=== PATIENT | female | born 1955 | race Caucasian/White ===

== ENCOUNTER 2022-09-03 11:24 | Emergency (ER) | payer MEDICARE, SELFPAY ==
[2022-09-03 11:27] VITALS: BP 146/90; PULSE 92; RESP 18; TEMP 36.8; O2SAT 99; BMI 26.5
--- NOTE | 2022-09-03 11:40 | ED_ITS ---
HPI - General Adult General Chief complaint: Upper Respiratory Infection Stated complaint: COUGH Time Seen by Provider: 09/03/22 11:40 Source: patient Mode of arrival: walk-in Limitations: no limitations History of Present Illness HPI narrative: The patient has been complaining of cough for the last few days she has been evaluated by her primary care doctor which was prescribed two antibiotics but she mentioned that the antibiotic was making her sick and she continued to cough The patient denies any fever or chills any runny t nose or sore throat she also denies any nausea vomiting or any other complaint The patient have no difficulty breathing but she have cough that is not productive Related Data Previous Rx's Medication Instructions Recorded famotidine 20 mg tablet (Pepcid) 20 mg PO BID #10 tabs 09/03/22 Allergies Allergy/AdvReac Type Severity Reaction Status Date / Time levofloxacin Allergy Intermediate Verified 09/03/22 11:34 Review of Systems ROS Status of ROS 10 or more systems reviewed and unremarkable except as noted in history and below Exam Narrative Exam Narrative: Nurses notes and vital signs reviewed and patient is not hypoxic. General: Well-appearing and in no apparent distress. Skin: Warm, dry, no pallor noted. No rash. Head: Normocephalic, atraumatic. Neck: Supple, non-tender. Eye: Pupils are equal, round and EOMI. No scleral icterus. Ears, Nose, Mouth, and Throat: TM are clear, no nasal mucosal hypertrophy. Oral mucosa is moist, no posterior oropharynx erythema, uvula is mid-line Cardiovascular: Regular Rate and Rhythm without murmur, gallop or rub. Respiratory: No accessory muscle use or respiratory distress. Lungs are clear to auscultation, no wheezing, rales or rhonchi Chest Wall: no tenderness Back: No midline thoracic or lumbar vertebral tenderness. No CVA tenderness Musculoskeletal: normal ROM, no calf or popliteal tenderness, no lower extremit y edema/swelling GI: Abdomen is soft, non-distended. Normal bowel sounds. No masses appreciated. No tenderness to palpation. No rebound, guarding, or rigidity noted. Neurological: A&O x4. No cranial nerve dysfunction observed. No truncal ataxia. Moves all extremities. Sensation intact. Psychiatric: Cooperative and interactive. Normal mood and affect. Constitutional Vital Signs, click to edit/add: Last Vital Signs Temp 98.2 F 09/03/22 11:27 Pulse 92 H 09/03/22 11:27 Resp 18 09/03/22 11:27 BP 146/90 H 09/03/22 11:27 Pulse Ox 90 L 09/03/22 12:52 O2 Del Method Room Air 09/03/22 11:27 O2 Flow Rate 4 09/03/22 12:52 Course Vital Signs Vital signs: Vital Signs Temperature 98.2 F 09/03/22 11:27 Pulse Rate 92 H 09/03/22 11:27 Respiratory Rate 18 09/03/22 11:27 Blood Pressure 146/90 H 09/03/22 11:27 Pulse Oximetry 99 09/03/22 11:27 Oxygen Delivery Method Room Air 09/03/22 11:27 Temperature 98.2 F 09/03/22 11:27 Pulse Rate 92 H 09/03/22 11:27 Respiratory Rate 18 09/03/22 11:27 Blood Pressure 146/90 H 09/03/22 11:27 Pulse Oximetry 90 L 09/03/22 12:52 Oxygen Delivery Method Room Air 09/03/22 11:27 Oxygen Delivery Flow Rate 4 09/03/22 12:52 Medical Decision Making MDM Narrative Medical decision making narrative: The patient's CBC and chemistry showed no significant pathology The x-ray showed no pneumonia And the patient was restarted and Z-Mateo she will continue that twice now and she will continue hydration and [id number] Mucinex The patient also follow-up with her doctor within the week for further evaluation and to come back in case symptoms Lab Data Labs: Lab Results 09/03/22 Range/Units 11:58 WBC 7.0 (4.0-11.0) 10^3/uL RBC 4.73 (4.20-5.40) 10^6/uL Hgb 14.0 (12.0-16.0) g/dL Hct 43.0 (36.0-48.0) % MCV 90.9 (81.0-99.0) fL MCH 29.6 (26.7-34.0) pg MCHC 32.6 (29.9-35.2) g/dL RDW 12.7 (11.0-15.0) % Plt Count 278 (150-450) 10^3/uL MPV 10.6 (9.5-13.5) fL Neut % (Auto) 61.1 (43.0-75.0) % Lymph % (Auto) 26.4 (20.5-60.0) % [place] % (Auto) 10.8 (1.7-12.0) % Eos % (Auto) 1.0 (0.9-7.0) % Baso % (Auto) 0.4 (0.2-2.0) % Neut # (Auto) 4.3 (1.4-6.5) 10^3/uL Lymph # (Auto) 1.8 (1.2-3.8) 10^3/uL [place] # (Auto) 0.8 (0.3-0.8) 10^3/uL Eos # (Auto) 0.1 (0.0-0.7) 10^3/uL Baso # (Auto) 0.0 (0.0-0.1) 10^3/uL Abs Immat Gran (auto) 0.02 (0.00-0.03) 10^3/uL Imm/Tot Granulo (auto) 0.3 (0.0-0.5) % Sodium 140 (136-145) mmol/L Potassium 4.0 (3.5-5.1) mmol/L Chloride 106 (98-107) mmol/L Carbon Dioxide 26.3 (21.0-32.0) mmol/L Anion Gap 11.7 BUN 11.0 (7.0-18.0) mg/dL Creatinine 0.61 (0.55-1.02) mg/dL Est GFR ( Amer) >60 (>=60) Est GFR (Non-Af Amer) >60 (>=60) BUN/Creatinine Ratio 18.0 Glucose 101 (74-106) mg/dL Calcium 8.8 (8.5-10.1) mg/dL Magnesium 1.9 (1.8-2.4) mg/dL Total Bilirubin 0.4 (0.2-1.0) mg/dL AST <5 L (15-37) U/L ALT 17 (14-59) U/L Alkaline Phosphatase 81 (46-116) U/L Total Protein 7.2 (6.4-8.2) g/dL Albumin 4.0 (3.4-5.0) g/dL Globulin 3.2 g/dL Albumin/Globulin Ratio 1.3 Discharge Plan Discharge Chief Complaint: Upper Respiratory Infection Clinical Impression: Bronchitis Patient Disposition: Home, Self-Care Time of Disposition Decision: 13:03 Condition: Good Mode of Transportation: Private Vehicle Prescriptions / Home Meds: New famotidine [Pepcid] 20 mg tablet 20 mg PO BID Qty: 10 0RF Instructions: Acute Cough (ED) Stand Alone Forms: Portal Instructions Referrals: Merrill Kaufman MD [Primary Care Provider] - 1 week Discharge Date/Time: 09/03/22 13:14
--- NOTE | 2022-09-03 11:43 | XR_ITS ---
The [address] [address] Patient Name: MARY JO ROBLES MRN: [id number] date: 1955 Sex: F Assigned Patient Location: ER Current Patient Location: ER Accession/Order Number: [id number] Exam Date: 09/03/2022 12:10 Report Date: 09/03/2022 12:49 At the request of: MENA PAULINO Procedure: XR chest 1V EXAM: XR chest 1V HISTORY: cough COMPARISON: 12/18/2025 TECHNIQUE: AP view of the chest FINDINGS: There is no focal airspace consolidation. The cardiomediastinal silhouette is not enlarged. No evidence of pleural effusion or pneumothorax are identified. No acute osseous abnormality. XR/XR chest 1V IMPRESSION: No acute cardiopulmonary process. Recommend follow up imaging if symptoms worsen or persist. Electronically authenticated by: EDGAR VALLEU Date: 09/03/2022 12:49
[2022-09-03 12:17] LABS: Basophils Percent Auto 0.4 % (0.2-2.0); Eosinophils Absolute Auto 0.1 10^3/uL (0.0-0.7); Immature Granulocytes Abs Auto 0.02 10^3/uL (0.00-0.03); Immature Granulocytes Pct Auto 0.3 % (0.0-0.5); Lymphocytes Absolute Auto 1.8 10^3/uL (1.2-3.8); Lymphocytes Percent Auto 26.4 % (20.5-60.0); Mean Corpuscular HGB Conc 32.6 g/dL (29.9-35.2); Mean Corpuscular Hemoglobin 29.6 pg (26.7-34.0); Mean Corpuscular Volume 90.9 fL (81.0-99.0); Mean Platelet Volume 10.6 fL (9.5-13.5); Monocytes Absolute Auto 0.8 10^3/uL (0.3-0.8); Monocytes Percent Auto 10.8 % (1.7-12.0); Neutrophils Absolute Auto 4.3 10^3/uL (1.4-6.5); Neutrophils Percent Auto 61.1 % (43.0-75.0); Platelet Count 278 10^3/uL (150-450); Red Blood Count 4.73 10^6/uL (4.20-5.40); Red Cell Distribution Width 12.7 % (11.0-15.0)
[2022-09-03 12:34] LABS: Alanine Aminotransferase 17 U/L (14-59); Albumin Globulin Ratio 1.3; Alkaline Phosphatase 81 U/L (46-116); Anion Gap 11.7; Aspartate Amino Transferase <5 U/L (15-37); Bilirubin Total 0.4 mg/dL (0.2-1.0); Calcium 8.8 mg/dL (8.5-10.1); Carbon Dioxide 26.3 mmol/L (21.0-32.0); Chloride 106 mmol/L (98-107); Estimated GFR (African America >60 (>=60); Estimated GFR (Non-African Ame >60 (>=60); Globulin 3.2 g/dL; Glucose 101 mg/dL (74-106); Magnesium 1.9 mg/dL (1.8-2.4); Sodium 140 mmol/L (136-145); Total Protein 7.2 g/dL (6.4-8.2)
--- NOTE | 2022-09-03 12:45 | RESP.RT ---
Placed pt on Vapotherm 40L/100% due to ABG results
[2022-09-03 12:52] VITALS: O2SAT 90
--- NOTE | 2022-09-03 12:52 | RESP.RT ---
Placed on Vapotherm 40L/100% due to ABG
== END 2022-09-03 13:14 | disposition home or self-care (01) ==
PROVIDERS: Emergency Provider Emergency Medicine; PCP Family Medicine
DX: J40 Bronchitis, not specified as acute or chronic (principal)
CPT/HCPCS: 36415; 71045; 80053; 83735; 85025; 94799; 99284

== ENCOUNTER 2022-09-19 10:15 | Outpatient (OUT) | payer MEDICARE, SELFPAY ==
[2022-09-19 10:54] LABS: Basophils Percent Auto 0.5 % (0.2-2.0); Eosinophils Absolute Auto 0.1 10^3/uL (0.0-0.7); Eosinophils Percent Auto 1.1 % (0.9-7.0); Hematocrit 41.2 % (36.0-48.0); Hemoglobin 13.2 g/dL (12.0-16.0); Immature Granulocytes Abs Auto 0.02 10^3/uL (0.00-0.03); Immature Granulocytes Pct Auto 0.3 % (0.0-0.5); Lymphocytes Percent Auto 31.6 % (20.5-60.0); Mean Corpuscular Hemoglobin 29.6 pg (26.7-34.0); Mean Corpuscular Volume 92.4 fL (81.0-99.0); Mean Platelet Volume 11.2 fL (9.5-13.5); Monocytes Absolute Auto 0.6 10^3/uL (0.3-0.8); Monocytes Percent Auto 9.5 % (1.7-12.0); Neutrophils Absolute Auto 3.6 10^3/uL (1.4-6.5); Platelet Count 243 10^3/uL (150-450); Red Blood Count 4.46 10^6/uL (4.20-5.40); Red Cell Distribution Width 12.8 % (11.0-15.0); White Blood Count 6.3 10^3/uL (4.0-11.0)
[2022-09-19 11:11] LABS: Estimated Average Glucose 100 mg/dL; Glycohemoglobin A1C 5.1 % (4.5-6.2)
[2022-09-19 12:02] LABS: Alanine Aminotransferase 22 U/L (14-59); Albumin Globulin Ratio 1.2; Albumin Level 3.9 g/dL (3.4-5.0); Alkaline Phosphatase 70 U/L (46-116); Anion Gap 12.5; Aspartate Amino Transferase 15 U/L (15-37); BUN Creatinine Ratio 19.3; Bilirubin Total 0.5 mg/dL (0.2-1.0); Calcium 8.5 mg/dL (8.5-10.1); Carbon Dioxide 28.5 mmol/L (21.0-32.0); Chloride 101 mmol/L (98-107); Chol HDL Ratio 2.3; Cholesterol 190 mg/dL (<=200); Estimated GFR (African America >60 (>=60); Estimated GFR (Non-African Ame >60 (>=60); Free T3 3.07 pg/mL (2.18-3.98); Globulin 3.3 g/dL; Glucose 82 mg/dL (74-106); HDL Cholesterol 81 mg/dL (40-60); Sodium 138 mmol/L (136-145); Total Protein 7.2 g/dL (6.4-8.2); Triglycerides 48 mg/dL (<=150); VLDL CHOLESTEROL 9.6 mg/dL
== END 2022-09-19 10:16 | disposition home or self-care (01) ==
PROVIDERS: PCP Family Medicine; Visit Provider Family Medicine
DX: J20.9 Acute bronchitis, unspecified (principal); E78.5 Hyperlipidemia, unspecified; D64.9 Anemia, unspecified; R73.09 Other abnormal glucose; Z79.899 Other long term (current) drug therapy; R53.83 Other fatigue
CPT/HCPCS: 36415; 80053; 80061; 83036; 83540; 84436; 84443; 84481; 85025

== ENCOUNTER 2022-09-25 13:15 | Outpatient (OUT) | payer MEDICARE, SELFPAY ==
--- NOTE | 2022-09-25 13:18 | MM_ITS ---
Patient: MARY JO ROBLES Exam Date: 09/25/2022 : 1955 Gender:F Ordering : DR Merrill Kaufman . Admission #: [id number] Family : Order #: [id number] CLICK HERE TO VIEW EXAM RADIOLOGY REPORT PROCEDURE: MM TOMOSYNTHESIS SCREENING BI COMPARISON: MG MAMM SCREEN 3D TERA CAD, 06/19/2020. MG MAMM SCREEN 3D TERA CAD, 07/04/2021. INDICATIONS: Screening mammogram Z12.31 Calculator Name NCI Breast Cancer Risk Assessment Tool 5 Year Breast Cancer Risk 1.40% Lifetime Breast Cancer Risk 4.60% Personal Breast Cancer No Personal Ovarian Cancer No Treatments None Family Cancers Mother with colon cancer at age 72. LOCATION: [facility] BREAST COMPOSITION: Almost entirely fatty. FINDINGS: DIAGNOSTIC CATEGORY 1--NEGATIVE. NO CHANGE FROM COMPARISON ASSESSMENT. LEFT BREAST: No significant suspicious finding. RIGHT BREAST: No significant suspicious finding. RECOMMENDATIONS: ROUTINE MAMMOGRAM AND CLINICAL EVALUATION IN 12 MONTHS. PLEASE NOTE: A NORMAL MAMMOGRAM DOES NOT EXCLUDE THE POSSIBILITY OF BREAST CANCER. A CLINICALLY SUSPICIOUS PALPABLE LUMP SHOULD BE BIOPSIED. Dictated by: Willy Means MD on 09/25/2022 at 14:24 Approved by: Willy Means MD on 09/25/2022 at 14:24
== END 2022-09-25 13:16 | disposition home or self-care (01) ==
LOC: MAMMO 13:15
PROVIDERS: PCP Family Medicine; Visit Provider Family Medicine
DX: Z12.31 Encounter for screening mammogram for malignant neoplasm of breast (principal); Z80.0 Family history of malignant neoplasm of digestive organs
CPT/HCPCS: 77063; 77067

== ENCOUNTER 2023-01-28 13:58 | Outpatient (OUT) | payer MEDICARE, SELFPAY ==
--- NOTE | 2023-01-28 14:08 | XR_ITS ---
The [address] [address] Patient Name: MARY JO ROBLES MRN: [id number] date: 1955 Sex: F Assigned Patient Location: LAB Current Patient Location: LAB Accession/Order Number: [id number] Exam Date: 01/28/2023 14:10 Report Date: 01/28/2023 14:38 At the request of: KATELYN YOON Procedure: XR chest 2V EXAMINATION: XR chest 2V HISTORY: Acute Bronchitis J20.9 COMPARISON: 09/03/2022 TECHNIQUE: PA and lateral FINDINGS: LUNGS: No significant pulmonary parenchymal abnormalities. VASCULATURE: No increased pulmonary vasculature. PLEURA: No pneumothorax, effusion, or pleural thickening. CARDIAC: No cardiomegaly or cardiac silhouette abnormality. MEDIASTINUM: No visible mass or adenopathy. BONES: Mild degenerative disc disease and spondylosis without visible acute abnormalities. OTHER: Negative. XR/XR chest 2V IMPRESSION: No acute disease. Electronically authenticated by: EDMOND CAAL Date: 01/28/2023 14:38
== END 2023-01-28 13:59 | disposition home or self-care (01) ==
LOC: LAB 14:00
PROVIDERS: PCP Family Medicine; Visit Provider Family Medicine
DX: J20.9 Acute bronchitis, unspecified (principal)
CPT/HCPCS: 71046

== ENCOUNTER 2023-06-09 12:44 | Outpatient (OUT) | payer MEDICARE, SELFPAY ==
--- NOTE | 2023-06-09 12:47 | XR_ITS ---
[address] [address] Patient Name: MARY JO ROBLES MRN: [id number] date: 1955 Sex: F Assigned Patient Location: [facility] Current Patient Location: [facility] Accession/Order Number: [id number] Exam Date: 06/09/2023 12:58 Report Date: 06/09/2023 17:27 At the request of: KATELYN YOON Procedure: XR DEXA axial skeleton EXAMINATION: XR DEXA axial skeleton, 06/09/2023 12:58 PM EDT HISTORY: Age-related osteoporosis without current Fracture M81.0 COMPARISON: None. TECHNIQUE: Dual-energy X-ray absorptiometry (DEXA) bone density study performed for the axial skeleton. HISTORY: Age-related osteoporosis without current Fracture M81.0 FINDINGS: Bone mineral density AP spine L1-L4 measures 0.831 g/sq cm. T score -2.9. WHO classification: Osteoporosis. Bone mineral density total bilateral femurs is 0.689 g/sq cm. T score -2.5. WHO classification: Osteoporosis XR/XR DEXA axial skeleton IMPRESSION: Osteoporosis. High fracture risk Electronically authenticated by: EDMOND CAAL Date: 06/09/2023 17:27
--- OUTSIDE RECORDS SUMMARY | 2023-06-09 12:53 | XMS_ITS | CCD ---
Author Organization [facility] Care Team Providers Care Cap Maker Name Role Phone ALEJANDRO, DR ALLEY Beasley Consulting Unavailable PAY, DR CORTEZ Admitting Unavailable PAY, DR CORTEZ Attending Unavailable HOY, DR ZEPEDA Primary Care Unavailable PAY, DR CORTEZ Consulting Unavailable NILL, DR KOO Consulting Unavailable NILL, DR KOO Admitting Unavailable NILL, DR KOO Attending Unavailable HOY, DR ZEPEDA Primary Care Unavailable NILL, DR KOO Admitting Unavailable NILL, DR KOO Attending Unavailable HOY, DR ZEPEDA Primary Care Unavailable NILL, DR KOO Consulting Unavailable NILL, DR KOO Admitting Unavailable NILL, DR KOO Attending Unavailable HOY, DR ZEPEDA Primary Care Unavailable NILL, DR KOO Consulting Unavailable LESKOVAC, RAIZA Consulting Unavailable DORKOSKIE, TESS Consulting Unavailable NILL, DR KOO Admitting Unavailable ZIEBER, DR ALLEY Beasley Consulting Unavailable NILL, DR KOO Attending Unavailable HOY, DR ZEPEDA Primary Care Unavailable NILL, DR KOO Consulting Unavailable HOY, DR ZEPEDA Admitting Unavailable HOY, DR ZEPEDA Referring Unavailable HOY, DR ZEPEDA Attending Unavailable HOY, DR ZEPEDA Consulting Unavailable HOY, DR ZEPEDA Primary Care Unavailable WEST, DR EDMOND Humphries Consulting Unavailable HOY, DR ZEPEDA Admitting Unavailable HOY, DR ZEPEDA Attending Unavailable HOY, DR ZEPEDA Consulting Unavailable HOY, DR ZEPEDA Primary Care Unavailable WEST, DR EDMOND Humphries Consulting Unavailable Problems Active Problems Problem Classification Problem Date Documented Da te Episodic/Chronic Other nutritional; endocrine; and metabolic disorders (1 source) Obesity, unspecified; Translations: [OBESITY UNSPECIFIED] Onset: 09-11-2020 Chronic Other nutritional; endocrine; and metabolic disorders (1 source) Body mass index (BMI) 31.0-31.9, adult; Translations: [BODY MASS INDEX BMI 31.0-31.9 ADULT] Onset: 09-11-2020 Chronic Other screening for suspected conditions (not mental disorders or infectious disease) (4 sources) Encounter for screening mammogram for malignant neoplasm of breast; Translations: [ENC SCR MAMMO MALIG NEOPLASM BREAST] Onset: 07-04-2021 Episodic Residual codes; unclassified (1 source) Family history of malignant neoplasm of digestive organs; Translations: [FAM HX MALIG NEOPLASM DIGESTIV ORGN] Onset: 07-09-2021 Episodic Unclassified (1 source) PERSONAL HISTORY OF COVID-19; Translations: [PERSONAL HISTORY OF COVID-19] Onset: 09-11-2020 Unclassified (1 source) CONTACT W/AND (SUSP) EXPOS COVID-19; Translations: [CONTACT W/AND (SUSP) EXPOS COVID-19] Onset: 09-09-2020 Past or Other Problems Problem Classification Problem Date Documented Da te Episodic/Chronic Abdominal hernia (5 sources) Unilateral inguinal hernia, without obstruction or gangrene, not specified as recurrent; Translations: [Unilateral femoral hernia, with obstruction, without gangrene, not specified as recurrent] Onset: 09-04-2020 Episodic Abdominal pain (4 sources) Left lower quadrant pain; Translations: [LEFT LOWER QUADRANT PAIN] Onset: 07-25-2020 Episodic E Codes: Natural/environment (1 source) Bitten by dog, initial encounter; Translations: [BITTEN BY DOG INITIAL ENCOUNTER] Onset: 07-16-2020 Episodic Immunizations and screening for infectious disease (1 source) Encounter for immunization; Translations: [ENCOUNTER FOR IMMUNIZATION] Onset: 07-16-2020 Episodic Open wounds of extremities (4 sources) Open bite of left hand, initial encounter; Translations: [OPEN BITE LEFT HAND INITIAL ENC] Onset: 07-12-2020 Episodic Open wounds of extremities (1 source) Open bite of right hand, initial encounter; Translations: [OPEN BITE RIGHT HAND INITIAL ENC] Onset: 07-16-2020 Episodic Other connective tissue disease (4 sources) Pain in right finger(s); Translations: [PAIN IN RIGHT FINGERS] Onset: 03-10-2021 Episodic Other gastrointestinal disorders (1 source) Other intra-abdominal and pelvic swelling, mass and lump; Translations: [OTH INTRA-ABD PELV SWELL MASS LUMP] Onset: 08-02-2020 Episodic Superficial injury; contusion (5 sources) Other superficial bite of left forearm, initial encounter; Translations: [Other superficial bite of right forearm, initial encounter] Onset: 07-16-2020 Episodic Results Test Name Value Interpretation Reference Range Facil ity MG MAMM SCREEN 3D TERA CADon 07-04-2021 MG MAMM SCREEN 3D TERA CAD Patient: SHANIQUE CAMARGO Exam Date: 07/04/2021 : 1955 Gender:F Ordering : DR KATELYN KAUFMAN . Admission #: [id number] Family : Order #: [id number] CLICK HERE TO VIEW EXAM RADIOLOGY REPORT PROCEDURE: MAMMOGRAM SCREENING 3D BILATERAL CAD COMPARISON: MG MAMM SCREEN 3D TERA CAD, 06/19/2020. MG MAMM SCREEN TERA W CAD, 04/11/2019. INDICATIONS: Screening mammography Calculator Name NCI Breast Cancer Risk Assessment Tool 5 Year Breast Cancer Risk 1.40% Lifetime Breast Cancer Risk 4.80% Personal Breast Cancer No Personal Ovarian Cancer No Treatments None Family Cancers Mother with colon cancer at age 72. LOCATION: [facility] BREAST COMPOSITION: Almost entirely fatty. FINDINGS: DIAGNOSTIC CATEGORY 1--NEGATIVE. NO CHANGE FROM COMPARISON ASSESSMENT. RIGHT BREAST: No significant suspicious finding. LEFT BREAST: No significant suspicious finding. RECOMMENDATIONS: ROUTINE MAMMOGRAM AND CLINICAL EVALUATION IN 12 MONTHS. PLEASE NOTE: A NORMAL MAMMOGRAM DOES NOT EXCLUDE THE POSSIBILITY OF BREAST CANCER. A CLINICALLY SUSPICIOUS PALPABLE LUMP SHOULD BE BIOPSIED. Dictated by: Edmond Caal MD on 07/04/2021 at 15:02 Approved by: Edmond Caal MD on 07/04/2021 at 15:03 Normal [facility] Ambulatory Clinical Summaryo n 10-02-2020 Ambulatory Clinical Summary {[id number] [facility] General Surgery Office/Clini c Noteon 10-02-2020 General Surgery Office/Clinic Note Chief Complaint post operative follow up HPI Staff 28 day post left femoral and inguinal hernia repairs. Doing well. Denies pain, no use of pain medication. No nausea or vomiting. Bowels moving well. Eager to return to work. History of Present Illness 1 month s/p left femoral and inguinal hernia repairs with mesh; doing well, no pain or drainage, no bulge or swelling; ready to return to work next week. Review of Systems ROS - Provider Constitutional: no fever, no sweats, no weight loss. Eyes: no glasses, no blurred vision, no visual loss. ENMT: no dentures, no hoarseness, no swallowing difficulties, no hearing loss, no ear infection(s), no nose bleeds. Cardiovascular: normal blood pressure, no chest pain, regular heartbeat, no heart murmur. Respiratory: no shortness of breath, no cough, no asthma, no wheezing. Gastrointestinal: no nausea, no vomiting, no diarrhea, no constipation, no blood in stool, no change in bowel habits, no abdominal pain, no hepatitis. Genitourinary: no kidney stones, no urine infection, no dysuria. Musculoskeletal: no pain, no weakness. Skin: no changing moles, no rash, no skin lumps. Neurologic: no seizures, no epilepsy, no headache. Psychiatric: no emotional or psychiatric problem. Heme/Lymph: no bleeding problems, no anemia, no blood clots, no transfusions. Allergy/Immunologic: no swollen lymph nodes/glands, no IV drug abuse. Other: Additional ROS info: Except as noted in the above Review of Systems and in the History of Present Illness, all other systems have been reviewed and are negative or noncontributory. Physical Exam Vitals & Measurements T: 36.5 ?C (Temporal Artery) abd: soft, nontender, nondistended; incision healing well, minimal postoperative induration, no recurrent hernia Assessment/Plan 1. Femoral hernia of left side (K41.90: Unilateral femoral hernia, without obstruction or gangrene, not specified as recurrent) doing well, gradually resume regular activities; return to work on Wednesday, no restrictions; call with problems/questions. 2. Left inguinal hernia (K40.90: Unilateral inguinal hernia, without obstruction or gangrene, not specified as recurrent) SEE # 1 Follow-up With When Contact Information Hayes BOLDEN MD, SUR In 3 months [address] [place] [address]- Additional Instructions: Hayes BOLDEN MD, SUR In 3 months [address] [place] [address]- Additional Instructions: Hayes BOLDEN MD, SUR Only if needed [address] [place] [address]- Additional Instructions: Problem List/Past Medical History Ongoing BMI 29.0-29.9,adult COVID-19 virus detected Cystitis, acute Diverticular disease Encounter for screening colonoscopy Femoral hernia of left side Irreducible left inguinal hernia Left inguinal hernia Lipoma of skin Mass of left inguinal region Sigmoid diverticulosis Historical No qualifying data Procedure/Surgical History Repair of left inguinal hernia (09/04/2020), Colonoscopy and biopsy of colon (04/21/2019), Colonoscopy normal (02/23/2004), Bilateral replacement of knee joints, Release of carpal tunnel for median nerve decompression, Tonsillectomy, primary or secondary; younger than age 12, Total abdominal hysterectomy. Medications Calcium, Magnesium and Zinc oral tablet, 1 tab(s), Oral, Daily Tylenol, Oral Vitamin C, Daily Vitamin D3 1000 intl units oral tablet, 1000 International_Unit= 1 tab(s), Oral, Daily Allergies No Known Allergies Social History Alcohol - Denies Alcohol Use, 04/12/2019 Substance Abuse - Denies Substance Abuse, 04/12/2019 Tobacco Never (less than 100 in lifetime) Tobacco Use:. Never Smokeless Tobacco Use:. Household tobacco concerns: No., 10/02/2020 Family History Primary malignant neoplasm of colon: Mother. Immunizations Vaccine Date Status Comments influenza virus vaccine, live, trivalent - Not Given Patient Refuses [facility] Comment on above: Result Comment: Elec tronically Signed By: CASEY DA SILVA, Hayes Beasley\.br\Date and Time Signed: 10/02/20 14:02 EDT Provider Letter FTon 10-02 [place] [facility] [place] SHANIQUE CAMARGO [address] [place] [address] SHANIQUE CAMARGO 1955 To Whom It May Concern, The above named patient may return to work without restrictions on 10/07/20. Sincerely, Dr. Hayes Bolden MD general surgery [facility] Ambulatory Clinical Summaryo n 09-18-2020 Ambulatory Clinical Summary {[id number] [facility] General Surgery Office/Clini c Noteon 09-18-2020 General Surgery Office/Clinic Note HPI Staff 2 week post operative visit following left inguinal hernia repair at [facility] on 09/04/20. History of Present Illness 2 weeks s/p left femoral and inguinal hernia repairs with mesh; doing well, denies pain, no drainage; not taking any pain meds; no strenuous activities. Review of Systems ROS - Provider Constitutional: no fever, no sweats, no weight loss. Eyes: no glasses, no blurred vision, no visual loss. ENMT: no dentures, no hoarseness, no swallowing difficulties, no hearing loss, no ear infection(s), no nose bleeds. Cardiovascular: normal blood pressure, no chest pain, regular heartbeat, no heart murmur. Respiratory: no shortness of breath, no cough, no asthma, no wheezing. Gastrointestinal: no nausea, no vomiting, no diarrhea, no constipation, no blood in stool, no change in bowel habits, no abdominal pain, no hepatitis. Genitourinary: no kidney stones, no urine infection, no dysuria. Musculoskeletal: no pain, no weakness. Skin: no changing moles, no rash, no skin lumps. Neurologic: no seizures, no epilepsy, no headache. Psychiatric: no emotional or psychiatric problem. Heme/Lymph: no bleeding problems, no anemia, no blood clots, no transfusions. Allergy/Immunologic: no swollen lymph nodes/glands, no IV drug abuse. Other: Additional ROS info: Except as noted in the above Review of Systems and in the History of Present Illness, all other systems have been reviewed and are negative or noncontributory. Physical Exam Vitals & Measurements T: 36 ?C (Tympanic) abd: soft, nontender nondistended; incision without erythema or drainage; no recurrent hernia or seroma Assessment/Plan 1. Femoral hernia of left side (K41.90: Unilateral femoral hernia, without obstruction or gangrene, not specified as recurrent) doing well, continue no lifting > 10 lbs for 2 weeks; follow up in 2 weeks; call sooner if problems/questions. 2. Left inguinal hernia (K40.90: Unilateral inguinal hernia, without obstruction or gangrene, not specified as recurrent) see # 1 Follow-up No qualifying data available Problem List/Past Medical History Ongoing BMI 29.0-29.9,adult COVID-19 virus detected Cystitis, acute Diverticular disease Encounter for screening colonoscopy Femoral hernia of left side Irreducible left inguinal hernia Left inguinal hernia Lipoma of skin Mass of left inguinal region Sigmoid diverticulosis Historical No qualifying data Procedure/Surgical History Repair of left inguinal hernia (09/04/2020), Colonoscopy and biopsy of colon (04/21/2019), Colonoscopy normal (02/23/2004), Bilateral replacement of knee joints, Release of carpal tunnel for median nerve decompression, Tonsillectomy, primary or secondary; younger than age 12, Total abdominal hysterectomy. Medications Calcium, Magnesium and Zinc oral tablet, 1 tab(s), Oral, Daily Tylenol, Oral Vitamin C, Daily Vitamin D3 1000 intl units oral tablet, 1000 International_Unit= 1 tab(s), Oral, Daily Allergies No Known Allergies Social History Alcohol - Denies Alcohol Use, 04/12/2019 Substance Abuse - Denies Substance Abuse, 04/12/2019 Tobacco Never (less than 100 in lifetime) Tobacco Use:. Never Smokeless Tobacco Use:. Household tobacco concerns: No., 09/10/2020 Family History Primary malignant neoplasm of colon: Mother. Immunizations Vaccine Date Status Comments influenza virus vaccine, live, trivalent - Not Given Patient Refuses [facility] Comment on above: Result Comment: Elec tronically Signed By: CASEY DA SILVA, Hayes Goodwin\Date and Time Signed: 09/18/20 13:14 EDT Ambulatory Clinical Summaryo n 09-17-2020 Ambulatory Clinical Summary {[id number] [facility] General Surgery Office/Clini c Noteon 09-14-2020 General Surgery Office/Clinic Note Chief Complaint 1 week f/u on double hernia HPI Staff 64yr old female here for 1 week f/u on double hernia repair with mesh. Denies pain, is still nauseated at times. Did get sick from anesthesia they used during the surgery, light headed, room spinning, and nauseated. History of Present Illness 6 days s/p repair left inguinal and femoral hernias with mesh; doing well, had nausea with anesthesia/pain pills, now taking tylenol or Ibuprofen; normal bms, no drainage from incision. normal urination. Review of Systems PHQ Score Initial Depression Screen Score: 0 ROS - Provider Constitutional: no fever, no sweats, no weight loss. Eyes: no glasses, no blurred vision, no visual loss. ENMT: no dentures, no hoarseness, no swallowing difficulties, no hearing loss, no ear infection(s), no nose bleeds. Cardiovascular: normal blood pressure, no chest pain, regular heartbeat, no heart murmur. Respiratory: no shortness of breath, no cough, no asthma, no wheezing. Gastrointestinal: no nausea, no vomiting, no diarrhea, no constipation, no blood in stool, no change in bowel habits, mild abdominal pain, no hepatitis. Genitourinary: no kidney stones, no urine infection, no dysuria. Musculoskeletal: no pain, no weakness. Skin: no changing moles, no rash, no skin lumps. Neurologic: no seizures, no epilepsy, no headache. Psychiatric: no emotional or psychiatric problem. Heme/Lymph: no bleeding problems, no anemia, no blood clots, no transfusions. Allergy/Immunologic: no swollen lymph nodes/glands, no IV drug abuse. Other: Additional ROS info: Except as noted in the above Review of Systems and in the History of Present Illness, all other systems have been reviewed and are negative or noncontributory. Physical Exam Vitals & Measurements T: 36.0 ?C (Temporal Artery) HT: 157.5 cm HT: 157.5 cm WT: 72.3 kg WT: 72.3 kg BMI: 29.15 abd: soft, normal bs, nondistended; incision without erythema or drainage, glue intact; minimal resolving ecchymosis. Assessment/Plan 1. Femoral hernia of left side (K41.90: Unilateral femoral hernia, without obstruction or gangrene, not specified as recurrent) doing well, continue no lifting > 10 lbs for 3 weeks; follow up in 1-2 weeks, call sooner if problems/questions. 2. Left inguinal hernia (K40.90: Unilateral inguinal hernia, without obstruction or gangrene, not specified as recurrent) see # 1 Follow-up No qualifying data available Problem List/Past Medical History Ongoing BMI 29.0-29.9,adult COVID-19 virus detected Cystitis, acute Diverticular disease Encounter for screening colonoscopy Femoral hernia of left side Irreducible left inguinal hernia Left inguinal hernia Lipoma of skin Mass of left inguinal region Sigmoid diverticulosis Historical No qualifying data Procedure/Surgical History Colonoscopy and biopsy of colon (04/21/2019), Colonoscopy normal (02/23/2004), Bilateral replacement of knee joints, Release of carpal tunnel for median nerve decompression, Tonsillectomy, primary or secondary; younger than age 12, Total abdominal hysterectomy. Medications Calcium, Magnesium and Zinc oral tablet, 1 tab(s), Oral, Daily Tylenol, Oral Vitamin C, Daily Vitamin D3 1000 intl units oral tablet, 1000 International_Unit= 1 tab(s), Oral, Daily Allergies No Known Allergies Social History Alcohol - Denies Alcohol Use, 04/12/2019 Substance Abuse - Denies Substance Abuse, 04/12/2019 Tobacco Never (less than 100 in lifetime) Tobacco Use:. Never Smokeless Tobacco Use:. Household tobacco concerns: No., 09/10/2020 Family History Primary malignant neoplasm of colon: Mother. Immunizations Vaccine Date Status Comments influenza virus vaccine, live, trivalent - Not Given Patient Refuses [facility] Comment on above: Result Comment: Elec tronically Signed By: CASEY DA SILVA, Hayes Beasley\.celeste\Date and Time Signed: 09/14/20 10:45 EDT Operative Reporton Operative Report [id number] 0CD:127 [facility] Pathology Noteon 09-06-2020 Pathology Note [id number] 0CD:127 [facility] Covid-19 PCR (CVDTB)on 08-22 SARS-CoV-2 (COVID-19) RNA JESSENIA+probe Ql (Unsp spec) Not detected Normal NOT DETECTED [facility] Comment on above: Result Comment: This test is not yet approved or cleared by the [place] FDA. When there are no FDA-approved or cleared tests available, and other criteria are met, FDA can make tests available under an emergency access mechanism called an Emergency Use Authorization (EUA). The EUA for this test is supported by the [place] of Health and Human Service's (HHS's) declaration that circumstances exist to justify the emergency use of in vitro diagnostics for the detection and/or diagnosis of the virus that causes COVID-19. This EUA will remain in effect (meaning this test can be used) for the duration of the COVID-19 declaration justifying emergency of IVDs, unless it is terminated or revoked by FDA (after which the test may no longer be used). When diagnostic testing is negative, the possibility of a false negative should be considered in the context of a patient's recent exposures and the presence of clinical signs and symptoms consistent with SARS-CoV-2. Performed By: #### C VDTB #### [facility] [address] [place] [address] Josef Solano Ambulatory Clinical Summaryo n 08-29-2020 Ambulatory Clinical Summary {[id number] [facility] ECG 12-Leadon 08-23-2020 ECG 12-Lead [id number]:127 [facility] Lab Reportson 08-23-2020 Lab Reports [id number]:127 [facility] BNPon 08-22-2020 Natriuretic peptide B (Bld) [Mass/Vol] 168.0 pg/mL Normal <=900.0 [facility] Comment on above: Performed By: #### B DB2 DBA, CMP #### [facility] [address] [id number] Josef Solano CBC AUTO DIFFon 08-22-2020 BASO # 0.0 103/ul Normal 0.0-0.1 [facility] Comment on above: Performed By: #### C BC ####[facility] [address] [id number] Solano Basophils/100 WBC (Bld) 0.6 % Normal 0.2-2.0 [facility] Comment on above: Performed By: #### C BC ####[facility] [address] [place], [place] [id number] Xiomara EO # 0.1 103/ul Normal 0.0-0.7 [facility] Comment on above: Performed By: #### C BC ####[facility] [address] [place], [place] [id number] Xiomara Eosinophils/100 WBC (Bld) 0.9 % Normal 0.9-7.0 [facility] Comment on above: Performed By: #### C BC ####[facility] [address] [place], [place] [id number] Xiomara Erythrocyte distribution width (RBC) [Ratio] 12.7 % Normal 11.0-15.0 [facility] Comment on above: Performed By: #### C BC ####[facility] [address] [place], [place] [id number] Xiomara Hematocrit (Bld) [Volume fraction] 40.3 % Normal 36.0-48.0 [facility] Comment on above: Performed By: #### C BC ####[facility] [address] [place], [place] [id number] Xiomara Hemoglobin (Bld) [Mass/Vol] 12.9 g/dL Normal 12.0-16.0 [facility] Comment on above: Performed By: #### C BC ####[facility] [address] [place], [place] [id number] Xiomara IG # 0.01 10e3/ul Normal 0.00-0.03 [facility] Comment on above: Performed By: #### C BC ####[facility] [address] [place], [place] [id number] Xiomara IG % 0.1 % Normal 0.0-0.5 [facility] Comment on above: Performed By: #### C BC ####[facility] [address] [place], [place] [address]Gerken Xiomara LYMPH # 2.4 103/ul Normal 1.2-3.8 [facility] Comment on above: Performed By: #### C BC ####[facility] [address] [place] [address] Xiomara Lymphocytes/100 WBC (Bld) 34.5 % Normal 20.5-60.0 [facility] Comment on above: Performed By: #### C BC ####[facility] [address] [place] [address] Xiomara MANUAL DIFF REQ NO Normal [facility] Comment on above: Performed By: #### C BC ####[facility] [address] [place], [place] [id number] Xiomara MCH (RBC) [Entitic mass] 30.0 pg Normal 26.7-34.0 [facility] Comment on above: Performed By: #### C BC ####[facility] [address] [place], [place] [id number] Xiomara MCHC (RBC) [Mass/Vol] 32.0 g/dL Normal 29.9-35.2 [facility] Comment on above: Performed By: #### C BC ####[facility] [address] [place] [address] Xiomara MCV (RBC) [Entitic vol] 93.7 fL Normal 81.0-99.0 [facility] Comment on above: Performed By: #### C BC ####[facility] [address] [place] [address] Xiomara MONO # 0.7 103/ul Normal 0.3-0.8 [facility] Comment on above: Performed By: #### C BC ####[facility] [address] [place], [place] [address]Gerbrandt Solano Monocytes/100 WBC (Bld) 9.3 % Normal 1.7-12.0 [facility] Comment on above: Performed By: #### C BC ####[facility] [address] [place], [place] [id number] Xiomara NEUT # 3.8 103/ul Normal 1.4-6.5 [facility] Comment on above: Performed By: #### C BC ####[facility] [id number] [place], [place] [id number] Xiomara Neutrophils/100 WBC (Bld) 54.6 % Normal 43.0-75.0 [facility] Comment on above: Performed By: #### C BC ####[facility] [address] [address]Josef Solano Platelet mean volume (Bld) [Entitic vol] 11.0 fL Normal 9.5-13.5 [facility] Comment on above: Performed By: #### C BC ####[facility] [address] [address]Josef Solano PLT 211 103/ul Normal 150-450 [facility] Comment on above: Performed By: #### C BC ####[facility] [address] [address]Josef Solano RBC 4.30 106/ul Normal 4.20-5.40 [facility] Comment on above: Performed By: #### C BC ####[facility] [address] [address]Josef Solano WBC 7.0 103/ul Normal 4.0-11.0 [facility] Comment on above: Performed By: #### C BC ####[facility] [address] [address]Josef Solano D-DIMERon 08-22-2020 D-DIMER 0.25 mg/L FEU Normal 0.19-0.50 [facility] Comment on above: Performed By: #### D DIM #### [facility] [address] [id number] Josef Solano D-DIMER COMMENTS SEE BELOW Normal [facility] Comment on above: Result Comment: Incr eases in D-Dimer concentration observed with thromboembolic events can be variable due to localization, size, and age of the thrombus. Therefore, a thromboembolic event cannot be diagnosed with certainty on the basis of the reference range. D-Dimers may also be elevated for a variety of disorders including: advanced age, , coronary disease, cancer, liver disease, infection, inflammation, hematoma, DIC, trauma, post-surgery, diabetes, thrombolytic or anticoagulant therapy, stress, and generalized hospitalization. Performed By: #### D DIM #### [facility] [address] [place], [place] [address] Josef Xiomara PROF 14(COMP METB)on 021 Albumin [Mass/Vol] 3.8 g/dL Normal 3.5-5.0 [facility] Comment on above: Performed By: #### B DB2 DBA, CMP #### [facility] [address] [place], [place] [address] Josef Xiomara Albumin/Globulin [Mass ratio] 1.2 {ratio} Normal [facility] Comment on above: Performed By: #### B DB2 DBA, CMP #### [facility] [address] [id number] Josef Xiomara ALP [Catalytic activity/Vol] 81 U/L Normal 38-126 [facility] Comment on above: Performed By: #### B DB2 DBA, CMP #### [facility] [address] [place], [place] [id number] Josef Xiomara ALT [Catalytic activity/Vol] 22 U/L Normal 9-52 [facility] Comment on above: Performed By: #### B DB2 DBA, CMP #### [facility] [address] [place] [address] Josef Xiomraa Anion gap [Moles/Vol] 11.9 mmol/L Normal [facility] Comment on above: Performed By: #### B DB2 DBA, CMP #### [facility] [address] [place], [place] [id number] Josef Xiomara AST [Catalytic activity/Vol] 18 U/L Normal 14-36 [facility] Comment on above: Performed By: #### B DB2 DBA, CMP #### [facility] [address] [place] [address] Josef Xiomara Bilirubin [Mass/Vol] 0.4 mg/dL Normal 0.2-1.3 [facility] Comment on above: Performed By: #### B DB2 DBA, CMP #### [facility] [address] [place] [address] Josef Xiomara Calcium [Mass/Vol] 8.7 mg/dL Normal 8.4-10.2 [facility] [place] [facility] Comment on above: Performed By: #### B DB2 DBA, CMP #### [facility] [address] [address] Josef Xiomara Chloride [Moles/Vol] 104 mmol/L Normal 98-107 [facility] Comment on above: Performed By: #### B DB2 DBA, CMP #### [facility] [address] [address] Josef Xiomara CO2 [Moles/Vol] 29.1 mmol/L Normal 22.0-30.0 [facility] Comment on above: Performed By: #### B DB2 DBA, CMP #### [facility] [address] [address] Josef Xiomara Creatinine [Mass/Vol] 0.59 mg/dL Normal 0.52-1.04 [facility] Comment on above: Performed By: #### B DB2 DBA, CMP #### [facility] [address] [place] [address] Josef Xiomara EGFR-AF SOUTH AFRICAN >60 Normal >=60 [facility] Comment on above: Performed By: #### B DB2 DBA, CMP #### [facility] [address] [place] [address] Josef Xiomara EGFR-NON AF SOUTH AFRICAN >60 Normal >=60 [facility] Comment on above: Performed By: #### B DB2 DBA, CMP #### [facility] [address] [place] [address] Josef Xiomara Globulin (S) [Mass/Vol] 3.3 g/dL Normal [facility] Comment on above: Performed By: #### B DB2 DBA, CMP #### [facility] [address] [place] [address] Josef Xiomara Glucose [Mass/Vol] 72 mg/dL Critically low 74-[address] [facility] Comment on above: Performed By: #### B DB2 DBA, CMP #### [facility] [address] [place] [address] Josef Xiomara Potassium [Moles/Vol] 4.0 mmol/L Normal 3.4-5.0 [facility] Comment on above: Performed By: #### B DB2 DBA, CMP #### [facility] [address] [address] Josef Xiomara Protein [Mass/Vol] 7.1 g/dL Normal 6.1-8.2 [facility] [place] [facility] Comment on above: Performed By: #### B DB2 DBA, CMP #### [facility] [address] [id number] Josef Xiomara Sodium [Moles/Vol] 141 mmol/L Normal 137-145 [facility] [place] [facility] Comment on above: Performed By: #### B DB2 DBA, CMP #### [facility] [address] [address] Josef Xiomara Urea nitrogen [Mass/Vol] 20.0 mg/dL Critically high 7.0-17.0 [facility] Comment on above: Performed By: #### B DB2 DBA, CMP #### [facility] [address] [place], [place] [id number] Josef Xiomara Urea nitrogen/Creatinin e [Mass ratio] 33.9 mg/mg Normal [facility] Comment on above: Performed By: #### B DB2 DBA, CMP #### [facility] [address] [place], [place] [id number] Josef Xiomara Pre-Certification Formon Pre-Certification Form [id number] 0CD:127 Normal [facility] Consent for Procedure/Surger yon 08-05-2020 Consent for Procedure/Surgery [id number] 0CD:127 Normal [facility] General Surgery Office/Clini c Noteon 08-04-2020 General Surgery Office/Clinic Note Chief Complaint follow up to review CT Results. HPI Staff 64 year old female presents self to review results from CT completed on 07/25/2020 due to lump in the left groin region. Denies experiencing symptoms of pain. Taking Tylenol PRN. No change with BMs or urinary symptoms. History of Present Illness 64 yo female seen in follow up after pelvic ct due to inguinal bulge, nonreducible, nontender; ct with evidence of a fat-containing inguinal hernia, small amount of fluid; only abdominal operation GEORGE; no asa or NSAID use; no tobacco use. Review of Systems PHQ Score Initial Depression Screen Score: 0 ROS - Provider Constitutional: no fever, no sweats, no weight loss. Eyes: yes glasses, no blurred vision, no visual loss. ENMT: no dentures, no hoarseness, no swallowing difficulties, no hearing loss, no ear infection(s), no nose bleeds. Cardiovascular: normal blood pressure, no chest pain, regular heartbeat, no heart murmur. Respiratory: no shortness of breath, no cough, no asthma, no wheezing. Gastrointestinal: no nausea, no vomiting, no diarrhea, no constipation, no blood in stool, no change in bowel habits, mild abdominal pain, no hepatitis. Genitourinary: no kidney stones, no urine infection, no dysuria. Musculoskeletal: no pain, no weakness. Skin: no changing moles, no rash, no skin lumps. Neurologic: no seizures, no epilepsy, no headache. Psychiatric: no emotional or psychiatric problem. Heme/Lymph: no bleeding problems, no anemia, no blood clots, no transfusions. Allergy/Immunologic: no swollen lymph nodes/glands, no IV drug abuse. Other: Additional ROS info: Except as noted in the above Review of Systems and in the History of Present Illness, all other systems have been reviewed and are negative or noncontributory. Physical Exam Vitals & Measurements T: 36.4 ?C (Tympanic) HEENT: normal conjunctiva, sclera clear, no scleral icterus, EOM intact, PERRLA, oral mucosa moist without lesions. Neck: trachea midline, no mass, symmetric, no thyromegaly or nodules, no adenopathy Respiratory: lungs CTA, respirations non labored. Cardiovascular: regular rate and rhythm, no murmur, no pedal edema or varicosities. Gastrointestinal: soft, non distended, no tenderness, no masses,5 cm left inguinal hernia, nonreducible, no skin changs, nontender; diastasis recti no, no hepatosplenomegaly; normal bs Lymphatic: no cervical adenopathy, no axillary adenopathy, no inguinal adenopathy. Musculoskeletal: normal gait, digits and nails without infection, nodes, cyanosis, clubbing. Skin: no rashes, no lesions, no ulcers, no subcutaneous nodules, induration. Psychiatric/Neuro: oriented to time, place, person, judgement normal, affect appropriate for age, insight intact, no focal deficits. Tests x-rays reviewed, review of old records completed, Discussed surgical options, risks, and possible complications with patient. Assessment/Plan 1. Irreducible left inguinal hernia (K40.30: Unilateral inguinal hernia, with obstruction, without gangrene, not specified as recurrent) plan left inguinal hernia with mesh insertion, informed consent obtained. Ancef 2 gms IV prior to OR TAP block per anesthesia SCDs Follow-up No qualifying data available Patient Education Open Hernia Repair, Adult Problem List/Past Medical History Ongoing BMI 29.0-29.9,adult COVID-19 virus detected Cystitis, acute Diverticular disease Encounter for screening colonoscopy Irreducible left inguinal hernia Lipoma of skin Mass of left inguinal region Sigmoid diverticulosis Historical No qualifying data Procedure/Surgical History Colonoscopy and biopsy of colon (04/21/2019), Colonoscopy normal (02/23/2004), Bilateral replacement of knee joints, Release of carpal tunnel for median nerve decompression, Tonsillectomy, primary or secondary; younger than age 12, Total abdominal hysterectomy. Medications Calcium, Magnesium and Zinc oral tablet, 1 tab(s), Oral, Daily Tylenol, Oral Vitamin C, Daily Vitamin D3 1000 intl units oral tablet, 1000 International_Unit= 1 tab(s), Oral, Daily Allergies No Known Allergies Social History Alcohol - Denies Alcohol Use, 04/12/2019 Substance Abuse - Denies Substance Abuse, 04/12/2019 Tobacco Never (less than 100 in lifetime) Tobacco Use:. Never Smokeless Tobacco Use:., 07/30/2020 Family History Primary malignant neoplasm of colon: Mother. Immunizations Vaccine Date Status Comments influenza virus vaccine, live, trivalent - Not Given Patient Refuses Normal [facility] Comment on above: Result Comment: Elec tronically Signed By: CASEY DA SILVA, Hayes Aleman.celeste\Date and Time Signed: 08/04/20 21:25 EDT Patient Educationon 08-05-19 Patient Education Gastroenterology Open Hernia Repair, Adult Open hernia repair is a surgical procedure to fix a hernia. A hernia occurs when an internal organ or tissue pushes out through a weak spot in the abdominal wall muscles. Hernias commonly occur in the groin and around the navel. Most hernias tend to get worse over time. Often, surgery is done to prevent the hernia from becoming bigger, uncomfortable, or an emergency. Emergency surgery may be needed if abdominal contents get stuck in the opening (incarcerated hernia) or the blood supply gets cut off (strangulated hernia). In an open repair, an incision is made in the abdomen to perform the surgery. Tell a health care provider about: ? Any allergies you have. ? All medicines you are taking, including vitamins, herbs, eye drops, creams, and ugkn-byw-oipdatn medicines. ? Any problems you or family members have had with anesthetic medicines. ? Any blood or bone disorders you have. ? Any surgeries you have had. ? Any medical conditions you have, including any recent cold or flu symptoms. ? Whether you are or may be . What are the risks? Generally, this is a safe procedure. However, problems may occur, including: ? Long-lasting (chronic) pain. ? Bleeding. ? Infection. ? Damage to the testicle. This can cause shrinking or swelling. ? Damage to the bladder, blood vessels, intestine, or nerves near the hernia. ? Trouble passing urine. ? Allergic reactions to medicines. ? Return of the hernia. What happens before the procedure? Staying hydrated Follow instructions from your health care provider about hydration, which may include: ? Up to 2 hours before the procedure ? you may continue to drink clear liquids, such as water, clear fruit juice, black coffee, and plain tea. Eating and drinking restrictions Follow instructions from your health care provider about eating and drinking, which may include: ? 8 hours before the procedure ? stop eating heavy meals or foods such as meat, fried foods, or fatty foods. ? 6 hours before the procedure ? stop eating light meals or foods, such as toast or cereal. ? 6 hours before the procedure ? stop drinking milk or drinks that contain milk. ? 2 hours before the procedure ? stop drinking clear liquids. Medicines ? Ask your health care provider about: ? Changing or stopping your regular medicines. This is especially important if you are taking diabetes medicines or blood thinners. ? Taking medicines such as aspirin and ibuprofen. These medicines can thin your blood. Do not take these medicines before your procedure if your health care provider instructs you not to. ? You may be given antibiotic medicine to help prevent infection. General instructions ? You may have blood tests or imaging studies. ? Ask your health care provider how your surgical site will be marked or identified. ? If you smoke, do not smoke for at least 2 weeks before your procedure or for as long as told by your health care provider. ? Let your health care provider know if you develop a cold or any infection before your surgery. ? Plan to have someone take you home from the hospital or clinic. ? If you will be going home right after the procedure, plan to have someone with you for 24 hours. What happens during the procedure? ? To reduce your risk of infection: ? Your health care team will wash or sanitize their hands. ? Your skin will be washed with soap. ? Hair may be removed from the surgical area. ? An IV tube will be inserted into one of your veins. ? You will be given one or more of the following: ? A medicine to help you relax (sedative). ? A medicine to numb the area (local anesthetic). ? A medicine to make you fall asleep (general anesthetic). ? Your surgeon will make an incision over the hernia. ? The tissues of the hernia will be moved back into place. ? The edges of the hernia may be stitched together. ? The opening in the abdominal muscles will be closed with stitches (sutures). Or, your surgeon will place a mesh patch made of manmade (synthetic) material over the opening. ? The incision will be closed. ? A bandage (dressing) may be placed over the incision. The procedure may vary among health care providers and hospitals. What happens after the procedure? ? Your blood pressure, heart rate, breathing rate, and blood oxygen level will be monitored until the medicines you were given have worn off. ? You may be given medicine for pain. ? Do not drive for 24 hours if you received a sedative. This information is not intended to replace advice given to you by your health care provider. Make sure you discuss any questions you have with your health care provider. Document Released: 08/04/2001 Document Revised: 01/21/2018 Document Reviewed: 07/22/2016 Elsevier Patient Education ? 2020 [employer] Normal [facility] Lab Reportson 07-26-2020 Lab Reports [id number] 0CD:127 Normal [facility] RAD - CT Reporton 07-26-2020 RAD - CT Report [id number] 0CD:127 Normal [facility] CREATININEon 07-25-2020 Creatinine [Mass/Vol] 0.63 mg/dL Normal 0.52-1.04 [facility] Comment on above: Performed By: #### C ZEYAD #### [facility] [address] [address] Josef Solano EGFR-AF SOUTH AFRICAN >60 Normal >=60 [facility] Comment on above: Performed By: #### C ZEYAD #### [facility] [address] [address] Josef Solano EGFR-NON AF SOUTH AFRICAN >60 Normal >=60 [facility] Comment on above: Performed By: #### C ZEYAD #### [facility] [address] [place] [address] PELVIS W CONon 07-25-2020 CT PELVIS W CON EXAMINATION: CT PELV IS W CON HISTORY: Left lower quadrant pain COMPARISON: No relevant comparison available. TECHNIQUE: Axial, Coronal, and Sagittal CT images obtained with IV contrast. Dose reduction techniques were achieved by using automated exposure control and/or adjustment of mA and/or kV according to patient size and/or use of iterative reconstruction technique. FINDINGS: BOWEL: Marked diverticulosis of the distal descending and sigmoid colon without acute inflammatory changes or bowel obstruction. LYMPH NODES: No adenopathy. URINARY BLADDER: No visible focal wall thickening, lesion, or calculus. PELVIC ORGANS: Hysterectomy. ANTERIOR WALL: Indirect left inguinal hernia, 5.9 x 6.3 x 4.1 cm containing fat and a small amount of fluid, likely due to its dependent location. No convincing strangulation. BONES: L4-5 marked degenerative disc disease with prominent degenerative endplate sclerosis. No bone lesion or fracture. OTHER: Negative. IMPRESSION: 1. Large indirect left inguinal hernia containing fat and fluid. No convincing strangulation. Fluid is likely secondary to its dependent location. 2. Marked colonic diverticulosis without acute diverticulitis. Electronically authenticated by: ALLEY ALLEN Date: 2020-07-25 14:11 Normal [facility] Pre-Certification Formon Pre-Certification Form [id number] 0CD:127 Normal [facility] Provider Letter FTon 07-18 Provider [place] [facility] [place], [address] [address] [place] [address] Re: SHANIQUE CAMARGO Date of : 1955 Thank you for your referral of Shanique Camargo who was seen on consultation on July 16, 2020, for lipoma on left groin. Testing has been ordered for further evaluation. I have enclosed my consultation notes for your review. I will be happy to follow Shanique. Sincerely, Hayes Bolden MD General Surgery [facility] Ambulatory Clinical Summaryo n 07-16-2020 Ambulatory Clinical Summary {[id number] Normal [facility] Patient Educationon 07-17-19 21 Patient Education [facility] Physician Referralon 021 Physician Referral [id number] 0CD:127 [facility] Encounters Encounter Date Encounter Type Care Provider Facility Start: 07-04-2021 End: 07-05-[address] KATELYN KAUFMAN Facility:[facility] Start: 03-10-2021 End: 03-11-[address] KATELYN KAUFMAN Facility:[facility] Start: 09-09-2020 Encounter for prepro cedural laboratory examination DR AHYES BOLDEN [facility] Start: 09-04-2020 End: 09-04-[address] HAYES BOLDEN Facility:[facility] Start: 08-31-2020 End: 09-01-[address] HAYES BOLDEN Facility:[facility] Start: 08-31-2020 End: 09-01-2020 Encounter for preprocedural laboratory examination DR HAYES BOLDEN Facility:[facility] Start: 08-30-2020 Encounter for prepro cedural cardiovascular examination DR HAYES BOLDEN [facility] Start: 08-22-2020 End: 08-23-[address] HAYES BOLDEN Facility:[facility] Start: 07-25-2020 End: 07-26-[address] HAYES BOLDEN Facility:[facility] Start: 07-12-2020 End: 07-12-[address] ALLEY ALLEN Facility:[facility] Payers Date Payer Category Payer Medicare [id number] 1961 Medicare [id number] 1955 Unknown [id number] 2.16.84 [id number] 1955 Unknown [id number] 2.16.84 [id number] 1955 Unknown [id number] 2.16.84 [id number] 1955 Unknown [id number] 2.16.84 [id number] 1955 Unknown [id number] 2.16.84 [id number] 1955 Unknown [id number] 2.16.84 [id number] 1955 Unknown [id number] 2.16.84 [id number] Clinical Note 03-10-2021 Note Date & Type Note Facility 03-10-2021 Note PROCEDURE: XR HAND R T MIN 3V COMPARISON: 07/12/2020 hand HISTORY: Pain in right thumb FINDINGS: BONES:No acute fracture or dislocation. 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 No visible soft tissue swelling. EFFUSION:None visible. OTHER: Negative. IMPRESSION: Degenerative changes, no acute abnormality Electronically authenticated by: EDMOND CAAL Date: 2021-03-10 13:48 [facility] Clinical Note 09-04-2020 Note Date & Type Note Facility 09-04-2020 Note OPERATIVE NOTE OPERATION DATE: 09-04-20 ANESTHETIC:General endotracheal as well as Exparel solution at the end. PREOPERATIVE DIAGNOSIS:Left inguinal hernia. POSTOPERATIVE DIAGNOSIS:Left indirect hernia as well as femoral hernia that was chronically incarcerated. PROCEDURE NAME:Left inguinal herniorrhaphy with Prolene mesh insertion. INDICATIONS AND CONSENT: The PATIENT is a 64 year-old female with a several month history of left inguinal bulge, this was nonreducible and had been sore initially but then soreness resolved. There was no skin changes. Work-up including a CT scan revealed evidence of an inguinal hernia. Indications, risks, benefits, and alternatives of proceeding with mesh insertion were explained extensively to the patient including the risk of bleeding, infection, scarring, pain, nerve injury, blood clot, pulmonary embolus, heart attack, anesthetic complications, need for further surgery or mesh removal. All of her questions were answered and informed consent was obtained. PROCEDURE: The patient was brought to the OR and placed in the supine position. General anesthesia was induced, she was prepped and draped in the usual sterile fashion. A left groin incision was made in the area of the skin crease and carried down through subcutaneous tissue using sharp dissection as well as electrocautery. The external oblique was attenuated, it was open along the direction of its fibers down to the external inguinal ring. There was noted to be an indirect sac as well as a preperitoneal fat going along with the round ligament and branch of the other inguinal nerve. This was freed up, the sac was empty, a high ligation was performed. The round ligament as well as the nerve were both divided as well and ligated with 3-0 Vicryl suture. On further inspection, there was noted to be chronically incarcerated femoral hernia. The floor of the inguinal canal was opened and it was noted to be attenuated as well. The femoral defect was freed up and slightly dilated with a right angle, this allowed a large amount of preperitoneal fat to be reduced back through the defect. The defect was closed with several interrupted 2-0 Prolene sutures. Care was taken to avoid undue tension on the femoral canal. The wound was irrigated, there was good hemostasis. The floor of the inguinal canal was then imbricated with these interrupted 2-0 Prolene sutures. The internal ring was completely closed with the 2-0 Prolene sutures. A Prolene patch was then trimmed and placed over the floor of the inguinal canal, it was then secured circumferentially using interrupted 2-0 Prolene sutures. The external oblique was then closed using a running 3-0 Vicryl suture. The subcutaneous tissues were then infiltrated with Exparel solution containing some 0.50% Marcaine. There was good hemostasis. The Gabrielle's fascia was reapproximated using interrupted 3-0 Monocryl suture. The skin was then closed with a running 4-0 subcuticular Monocryl suture as well as skin glue. Sterile pressure dressing was applied. Sponge and needle counts were correct x2 per nursing personnel. The patient tolerated the procedure well, was extubated and sent to the Recovery Room in good condition. cc:Dr. Kaufman. [facility] Signed and Approved by: DR HAYES BOLDEN . 09/06/2020 08:06:00 [facility] Clinical Note 07-16-2020 Note Date & Type Note Facility 07-16-2020 Note Chief Complaint Consultation of Lipoma located in the Left groin area. HPI Staff 64 year old female referred by Dr. Kaufman on consultation of Lipoma located in the Left groin region. Present x 4 -5 weeks. Denies symptoms of pain, change in size, or color. Occasional tenderness if touching the site. No previous US performed at the Left Inguinal site. Not taking anything for pain. No previous lipomas. History of Present Illness 64 yo female referred by Dr Kaufman for mass left inguinal area; noticed 5 weeks ago in shower, no skin changes, some tenderness with compression, no change in size since first noticed, no positional changes or reduction when lying down; no N/V; no bowel changes; no imaging studies; abdominal operations significant for GEORGE via Pfannenstiel incision; no h/o lipomas or injury to area, does do heavy lifting at work; denies asa or NSIAD use, no tobacco use. Review of Systems PHQ Score Initial Depression Screen Score: 0 ROS - Provider Constitutional: no fever, no sweats, no weight loss. Eyes: no glasses, no blurred vision, no visual loss. ENMT: no dentures, no hoarseness, no swallowing difficulties, no hearing loss, no ear infection(s), no nose bleeds. Cardiovascular: normal blood pressure, no chest pain, regular heartbeat, no heart murmur. Respiratory: no shortness of breath, no cough, no asthma, no wheezing. Gastrointestinal: no nausea, no vomiting, no diarrhea, no constipation, no blood in stool, no change in bowel habits, no abdominal pain, no hepatitis. Genitourinary: no kidney stones, no urine infection, no dysuria. Musculoskeletal: no pain, no weakness. Skin: no changing moles, no rash, yes skin lumps. Neurologic: no seizures, no epilepsy, no headache. Psychiatric: no emotional or psychiatric problem. Heme/Lymph: no bleeding problems, no anemia, no blood clots, no transfusions. Allergy/Immunologic: no swollen lymph nodes/glands, no IV drug abuse. Other: Additional ROS info: Except as noted in the above Review of Systems and in the History of Present Illness, all other systems have been reviewed and are negative or noncontributory. Physical Exam Vitals & Measurements BP: 122/60 HT: 157.5 cm HT: 157.48 cm WT: 71.9 kg WT: 71.91 kg BMI: 29 HEENT: normal conjunctiva, sclera clear, no scleral icterus, EOM intact, PERRLA, oral mucosa moist without lesions. Neck: trachea midline, no mass, symmetric, no thyromegaly or nodules, no adenopathy Respiratory: lungs CTA, respirations non labored. Cardiovascular: regular rate and rhythm, no murmur, no pedal edema or varicosities. Gastrointestinal: soft, non distended, no tenderness, left inguinal area with 5 cm subcutaneous mass, soft, nonreducible, no skin changes, mild tenderness, examined upright and supine position; diastasis recti no, no hepatosplenomegaly; normal bs Lymphatic: no cervical adenopathy, no inguinal adenopathy. Musculoskeletal: normal gait, digits and nails without infection, nodes, cyanosis, clubbing. Skin: no rashes, no lesions, no ulcers, no subcutaneous nodules, induration. Psychiatric/Neuro: oriented to time, place, person, judgement normal, affect appropriate for age, insight intact, no focal deficits. Tests: , review of old records completed, Assessment/Plan 1. Mass of left inguinal region (R19.09: Other intra-abdominal and pelvic swelling, mass and lump) likely incarcerated fat-containing inguinal hernia; possible lipoma; plan pelvic ct scan with contrast for further evaluation, will call patient with results. Abdominal pain, acute, left lower quadrant (R10.32: Left lower quadrant pain) see # 1 Ordered: CT Pelvis w/ Contrast Follow-up No qualifying data available Problem List/Past Medical History Ongoing BMI 29.0-29.9,adult COVID-19 virus detected Cystitis, acute Diverticular disease Encounter for screening colonoscopy Lipoma of skin Mass of left inguinal region Sigmoid diverticulosis Historical No qualifying data Procedure/Surgical History Colonoscopy and biopsy of colon (04/21/2019), Colonoscopy normal (02/23/2004), Bilateral replacement of knee joints, Release of carpal tunnel for median nerve decompression, Tonsillectomy, primary or secondary; younger than age 12, Total abdominal hysterectomy. Medications Augmentin Calcium, Magnesium and Zinc oral tablet, 1 tab(s), Oral, Daily Tylenol, Oral Vitamin C, Daily Vitamin D3 1000 intl units oral tablet, 1000 International_Unit= 1 tab(s), Oral, Daily Allergies No Known Allergies Social History Alcohol - Denies Alcohol Use, 04/12/2019 Substance Abuse - Denies Substance Abuse, 04/12/2019 Tobacco Never (less than 100 in lifetime) Tobacco Use:. Never Smokeless Tobacco Use:., 07/16/2020 Family History Primary malignant neoplasm of colon: Mother. Immunizations Vaccine Date Status Comments influenza virus vaccine, live, trivalent - Not Given Patient Refuses [facility] Comment on above: Result Comment: Elec tronically Signed By: CASEY DA SILVA, Hayes Beasley\jazz\Date and Time Signed: 07/16/20 14:53 EDT Clinical Note 07-12-2020 Note Date & Type Note Facility 07-12-2020 Note PROCEDURE: XR HAND B IL MIN 3V HISTORY: Pain ; dog bite COMPARISON: None. FINDINGS: BONES:No fracture, dislocation, bone lesion. Moderate marked degenerative changes of the left first carpal-metacarpal joint. Multifocal mild degenerative changes bilaterally. SOFT TISSUES:No visible soft tissue swelling. EFFUSION:None visible. OTHER: Negative. IMPRESSION: 1. No radiopaque foreign body. 2. Degenerative changes. No acute bone abnormality. Electronically authenticated by: ALLEY ALLEN Date: 2020-07-12 13:58 [facility] Summary Purpose Family History No Family History Records FoundNo Family History Records Found Advance Directives No Advanced Directives Records FoundNo Advanced Directives Records Found Additional Source Comments INFORMATION SOURCE (unrecogn ized section and content) DATE CREATED AUTHOR 10/03/2020 [facility] DATE CREATED AUTHOR AUTHOR'S ORGANIZ ATION 07/12/[address] [facility] FOR RECORDS PERTAINING TO PATIENTS WHO ARE OR HAVE BEEN ENROLLED IN A CHEMICAL DEPENDENCY/SUBSTANCEABUSE PROGRAM, SOME INFORMATION MAY BE OMITTED. This clinical summary was aggregated from multiple sources. Caution should be exercised in using it in the provision of clinical care. This summary normalizes information from multiple sources, and as a consequence, information in this document may materially change the coding, format and clinical context of patient data. In addition, data may be omitted in some cases. CLINICAL DECISIONS SHOULD BE BASED ON THE PRIMARY CLINICAL RECORDS. [facility] [employer] [facility]. provides no warranty or guarantee of the accuracy or completeness of information in this document.
== END 2023-06-09 12:45 | disposition home or self-care (01) ==
LOC: RAD 12:44
PROVIDERS: PCP Family Medicine; Visit Provider Family Medicine
DX: M81.0 Age-related osteoporosis without current pathological fracture (principal)
CPT/HCPCS: 77080

== ENCOUNTER 2023-06-23 12:31 | Outpatient (OUT) | payer MEDICARE, SELFPAY | END 2023-06-23 12:32 | disposition home or self-care (01) | LOC: LAB 12:35 | PROVIDERS: PCP Family Medicine; Visit Provider Family Medicine | DX: R53.83 Other fatigue (principal) | CPT/HCPCS: 36415; 82306; 82607; 82728; 82746; 83540 ==

== ENCOUNTER 2023-08-02 16:05 | Outpatient (OUT) | payer MEDICARE, SELFPAY ==
--- NOTE | 2023-08-02 16:15 | XR_ITS ---
[address] [address] Patient Name: MARY JO ROBLES MRN: [id number] date: 1955 Sex: F Assigned Patient Location: [facility] Current Patient Location: Accession/Order Number: [id number] Exam Date: 08/02/2023 16:25 Report Date: 08/03/2023 07:26 At the request of: KATELYN YOON Procedure: XR knee LT 3V PROCEDURE: XR knee LT 3V COMPARISON: None. HISTORY: Knee osteoarthritis FINDINGS: BONES:Medial knee hemiarthroplasty in anatomic alignment. No acute fracture, dislocation or mechanical failure. Degenerative changes with marginal osteophyte formation. Chondrocalcinosis. SOFT TISSUES:Negative. No visible soft tissue swelling. EFFUSION:Moderate suprapatellar joint effusion OTHER: Negative. XR/XR knee LT 3V IMPRESSION: Medial hemiarthroplasty Suprapatellar joint effusion Electronically authenticated by: EDMOND CAAL Date: 08/03/2023 07:26
== END 2023-08-02 16:06 | disposition home or self-care (01) ==
LOC: RAD 16:06
PROVIDERS: PCP Family Medicine; Visit Provider Family Medicine
DX: M17.9 Osteoarthritis of knee, unspecified (principal); M25.462 Effusion, left knee
CPT/HCPCS: 73562

== ENCOUNTER 2023-09-17 10:16 | Outpatient (OUT) | payer MEDICARE, SELFPAY ==
--- NOTE | 2023-09-17 10:19 | US_ITS ---
The [address] [address] Patient Name: MARY JO ROBLES MRN: [id number] date: 1955 Sex: F Assigned Patient Location: US Current Patient Location: US Accession/Order Number: [id number] Exam Date: 09/17/2023 10:20 Report Date: 09/17/2023 16:28 At the request of: KATELYN YOON Procedure: US right upper quadrant EXAMINATION: US right upper quadrant HISTORY: Unspecified Abdominal Pain R10.9 COMPARISON: No relevant comparison available. TECHNIQUE: Transabdominal evaluation of the right upper quadrant. FINDINGS: LIVER: Normal size and echotexture. Color Doppler demonstrates patent hepatic veins. PORTAL VEIN: Duplex Doppler demonstrates normal hepatopetal flow pattern with flow velocity averaging 42 cm/s. GALLBLADDER: No visible gallstones, wall thickening, or pericholecystic free fluid. Negative sonographic Mayfield's sign. BILIARY: No abnormal dilation or stones. Common bile duct diameter is within normal limits. PANCREAS: No visible mass, abnormal atrophy, or duct dilation. KIDNEY: No hydronephrosis. No visible mass or stones. Size: 9.1 x 5.1 x 5.7 cm US/US right upper quadrant IMPRESSION: 1. Normal right upper quadrant ultrasound. Electronically authenticated by: ALLEY ALLEN Date: 09/17/2023 16:28
--- OUTSIDE RECORDS SUMMARY | 2023-09-17 10:19 | XMS_ITS | CCD ---
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 [employer] Name Role Phone DR ALLEY ALLEN Consulting Unavailable PAY, DR CORTEZ Admitting Unavailable [...] KOO Consulting Unavailable LESKOVAC, RAIZA Consulting Unavailable DORKOSKIETESS Consulting Unavailable NILL, DR KOO Admitting Unavailable ZIEBER, DR ALLEY Beasley Consulting Unavailable NILL, DR KOO Attending Unavailable HOY, DR ZEPEDA Primary Care Unavailable NILL, DR KOO Consulting Unavailable MANUELAY, DR ZEPEDA Admitting Unavailable MANUELAY, DR ZEPEDA Referring Unavailable HOY, DR ZEPEDA Attending Unavailable HOMita, DR ZEPEDA Consulting Unavailable KARRIE, DR ZEPEDA Primary Care Unavailable WEST, DR EDMOND Humphries Consulting Unavailable KARRIE, DR ZEPEDA Admitting Unavailable KARRIE, DR ZEPEDA Attending Unavailable HOMita, DR ZEPEDA Consulting Unavailable KARRIE, DR ZEPEDA Primary Care Unavailable AFUA, DR EDMOND Humphries Consulting Unavailable NON STAFF Attending Unavailable NON STAFF Admitting Unavailable Katelyn Kaufman Primary Care Unavailable Problems Active Problems Problem Classification Problem [...] MALIG NEOPLASM DIGESTIV ORGN] Onset: 07-09-2021 Episodic Spondylosis; intervertebral disc disorders; other back problems (1 source) Sciatica, left side; Translations: [Sciatica, left side] Onset: 09-14-2023 Episodic Unclassified (1 source) PERSONAL HISTORY OF [...] : DR KATELYN KAUFMAN . Admission #: [id number] Family : Order #: [id number] CLICK HERE TO VIEW EXAM RADIOLOGY REPORT [...] colon cancer at age 70. LOCATION: [facility] BREAST COMPOSITION: Almost entirely fatty. FINDINGS: DIAGNOSTIC [...] Caal MD on 07/04/2021 at 15:03 Normal [facility] Ambulatory Clinical Summaryo n 10-02-2020 Ambulatory Clinical Summary {[id number]-63}CD:[id number] Normal [facility] General Surgery Office/Clini c Noteon 10-02-2020 General [...] # 1 Follow-up With When Contact Information CASEY DA SILVA, DIOGENES Corona In [address] [place] [address]- Additional Instructions: Hayes BOLDEN MD, SUR In 3 months [address] [place] [address]- Additional Instructions: Hayes BOLDEN MD, SUR Only if needed [address] [place] [address]- Additional Instructions: Problem List/Past Medical History Ongoing [...] trivalent - Not Given Patient Refuses Normal [facility] Comment on above: Result Comment: Elec tronically Signed By: Hayes BOLDEN MD\.br\Date and Time Signed: 10/02/20 14:02 EDT Provider Letter FTon 10-02 Provider Letter [facility] October 02, 2020 SHANIQUE CAMARGO [address] [place] [address] SHANIQUE CAMARGO 1955 To Whom It May Concern, The above named patient may return to work without restrictions on 10/07/20. Sincerely, Dr. Hayes Bolden MD general surgery Normal [facility] Ambulatory Clinical Summaryo n 09-18-2020 Ambulatory Clinical Summary {[id number]}CD:[id number] Normal [facility] General Surgery Office/Clini c Noteon 09-18-2020 General Surgery Office/Clinic Note HPI Staff 2 week post operative visit following left inguinal hernia repair at [facility] on 09/04/20. History of Present Illness 2 [...] trivalent - Not Given Patient Refuses Normal [facility] Comment on above: Result Comment: Elec tronically Signed By: CASEY DA SILVA, Hayes Goodwin\Date and Time Signed: 09/18/20 13:14 EDT Ambulatory Clinical Summaryo n 09-17-2020 Ambulatory Clinical Summary {[id number]}CD:[id number] Normal [facility] General Surgery Office/Clini c Noteon 09-14-2020 General [...] trivalent - Not Given Patient Refuses Normal [facility] Comment on above: Result Comment: Elec tronically Signed By: CASEY DA SILVA, Hayes Goodwin\Date and Time Signed: 09/14/20 10:45 EDT Operative Reporton Operative Report [id number]#1.0 0CD:[address] [facility] Pathology Noteon 09-06-2020 Pathology Note [id number]#1.0 0CD:[address] [facility] Covid-19 PCR (CVDTB)on 08-22 SARS-CoV-2 (COVID-19) RNA JESSENIA+probe Ql (Unsp spec) Not detected Normal NOT DETECTED [facility] Comment on above: Result Comment: This test is not yet approved or cleared by the [place] FDA. When there are no FDA-approved or cleared tests available, and other criteria are met, FDA can make tests available under an emergency access mechanism called an Emergency Use Authorization (EUA). The EUA for this test is supported by the [place] of Health and Human Service's (HHS's) declaration [...] consistent with SARS-CoV-2. Performed By: #### C VDTBH #### [facility] [address] [place] [address] Josef Solano Ambulatory Clinical Summaryo n 08-29-2020 Ambulatory Clinical Summary {[id number]}CD:650925 Normal [facility] ECG 12-Leadon 08-23-2020 ECG 12-Lead [id number]#1.0 0CD:[address] [facility] Lab Reportson 08-23-2020 Lab Reports [id number]#1.0 0CD:[address] [facility] BNPon 08-22-2020 Natriuretic peptide B (Bld) [Mass/Vol] 168.0 pg/mL Normal <=900.0 [facility] Comment on above: Performed By: #### B CLIENT RELATIONS ASSOCIATE, CMP #### [facility] [address] [place] [address] Josef Solano CBC AUTO DIFFon 08-22-2020 BASO # 0.0 103/ul Normal 0.0-0.1 [facility] Comment on above: Performed By: #### C BC ####[facility] [address] [place], [place] [address]Bibhcr Xiomara Basophils/100 WBC (Bld) 0.6 % Normal 0.2-2.0 [facility] Comment on above: Performed By: #### C BC ####[facility] [address] [place] [address]Jdqiuu Xiomara EO # 0.1 103/ul Normal 0.0-0.7 [facility] Comment on above: Performed By: #### C BC ####[facility] [address] [place], [place] [address]Gerken Xiomara Eosinophils/100 WBC (Bld) 0.9 % Normal 0.9-7.0 [facility] Comment on above: Performed By: #### C BC ####[facility] [address] [place], [place] [address]Gerken Xiomara Erythrocyte distribution width (RBC) [Ratio] 12.7 % Normal 11.0-15.0 [facility] Comment on above: Performed By: #### C BC ####[facility] [address] [place], [place] [address]Gerken Xiomara Hematocrit (Bld) [Volume fraction] 40.3 % Normal 36.0-48.0 [facility] Comment on above: Performed By: #### C BC ####[facility] [address] [place], [place] [address]Gerken Xiomara Hemoglobin (Bld) [Mass/Vol] 12.9 g/dL Normal 12.0-16.0 [facility] Comment on above: Performed By: #### C BC ####[facility] [address] [place], [place] [address]Gerken Xiomara IG # 0.01 10e3/ul Normal 0.00-0.03 [facility] Comment on above: Performed By: #### C BC ####[facility] [address] [place], [place] [address]Gerken Xiomara IG % 0.1 % Normal 0.0-0.5 [facility] Comment on above: Performed By: #### C BC ####[facility] [address] [place], [place] [address]Wugovj Xiomara LYMPH # 2.4 103/ul Normal 1.2-3.8 [facility] Comment on above: Performed By: #### C BC ####[facility] [address] [place], [place] [address]Mxdvph [place] Lymphocytes/100 WBC (Bld) 34.5 % Normal 20.5-60.0 [facility] Comment on above: Performed By: #### C BC ####[facility] [address] [place], [place] [address]Gdgeqm Xi[place] MANUAL DIFF REQ NO Normal [facility] Comment on above: Performed By: #### C BC ####[facility] [address] [place] [id number] Xiomara MCH (RBC) [Entitic mass] 30.0 pg Normal 26.7-34.0 [facility] Comment on above: Performed By: #### C BC ####[facility] [address] [place], [place] [address]Gerken Xiomara MCHC (RBC) [Mass/Vol] 32.0 g/dL Normal 29.9-35.2 [facility] Comment on above: Performed By: #### C BC ####[facility] [address] [place], [place] [address]Gerken Xiomara MCV (RBC) [Entitic vol] 93.7 fL Normal 81.0-99.0 [facility] Comment on above: Performed By: #### C BC ####[facility] [address] [place], [place] [address]Mbjsnh Xiomara MONO # 0.7 103/ul Normal 0.3-0.8 [facility] Comment on above: Performed By: #### C BC ####[facility] [address] [place] [address]Gerken Xiomara Monocytes/100 WBC (Bld) 9.3 % Normal 1.7-12.0 [facility] Comment on above: Performed By: #### C BC ####[facility] [address] [place], [place] [address]Yawiaj Karen NEUT # 3.8 103/ul Normal 1.4-6.5 [facility] Comment on above: Performed By: #### C BC ####[facility] [address] [place] [address]Gerbrandt Solano Neutrophils/100 WBC (Bld) 54.6 % Normal 43.0-75.0 [facility] Comment on above: Performed By: #### C BC ####[facility] [address] [place] [address]Josef Solano Platelet mean volume (Bld) [Entitic vol] 11.0 fL Normal 9.5-13.5 [facility] Comment on above: Performed By: #### C BC ####[facility] [address] [place] [address]Gerken Xiomara PLT 211 103/ul Normal 150-450 [facility] Comment on above: Performed By: #### C BC ####[facility] [address] [place] [address]Gerbrandt Solano RBC 4.30 106/ul Normal 4.20-5.40 [facility] Comment on above: Performed By: #### C BC ####[facility] [address] [place] [address]Gerbrandt Solano WBC 7.0 103/ul Normal 4.0-11.0 [facility] Comment on above: Performed By: #### C BC ####[facility] [address] [place], [place] [address]RqyjimJosef Solano D-DIMERon 08-22-2020 D-DIMER 0.25 mg/L FEU Normal 0.19-0.50 [facility] Comment on above: Performed By: #### D DIM #### [facility] [address] [place], [place] [address] Josef Solano D-DIMER COMMENTS SEE BELOW Normal [facility] Comment on above: Result Comment: Incr eases [...] hospitalization. Performed By: #### D DIM #### [facility] [address] [place], [place] [address] Josef Solano PROF 14(COMP METB)on 021 Albumin [Mass/Vol] 3.8 g/dL Normal 3.5-5.0 [facility] Comment on above: Performed By: #### B CLIENT RELATIONS ASSOCIATE, CMP #### [facility] [address] [place], [place] [address] Josefbrandt Solano Albumin/Globulin [Mass ratio] 1.2 {ratio} Normal [facility] Comment on above: Performed By: #### B CLIENT RELATIONS ASSOCIATE, CMP #### [facility] [address] [place] [address] Josef Xiomara ALP [Catalytic activity/Vol] 81 U/L Normal 38-126 [facility] Comment on above: Performed By: #### B CLIENT RELATIONS ASSOCIATE, CMP #### [facility] [address] [place], [place] [address] Josef Xiomara ALT [Catalytic activity/Vol] 22 U/L Normal 9-52 [facility] Comment on above: Performed By: #### B CLIENT RELATIONS ASSOCIATE, CMP #### [facility] [address] [place], [place] [address] Josef Xiomara Anion gap [Moles/Vol] 11.9 mmol/L Normal [facility] Comment on above: Performed By: #### B CLIENT RELATIONS ASSOCIATE, CMP #### [facility] [address] [place], [place] [address] Josef Xiomara AST [Catalytic activity/Vol] 18 U/L Normal 14-36 [facility] Comment on above: Performed By: #### B CLIENT RELATIONS ASSOCIATE, CMP #### [facility] [address] [place] [address] Josef Xiomara Bilirubin [Mass/Vol] 0.4 mg/dL Normal 0.2-1.3 [facility] Comment on above: Performed By: #### B CLIENT RELATIONS ASSOCIATE, CMP #### [facility] [address] [place] [address] Josef Xiomara Calcium [Mass/Vol] 8.7 mg/dL Normal 8.4-10.2 [facility] Comment on above: Performed By: #### B CLIENT RELATIONS ASSOCIATE, CMP #### [facility] [address] [place] [address] Josef Xiomara Chloride [Moles/Vol] 104 mmol/L Normal 98-107 [facility] Comment on above: Performed By: #### B CLIENT RELATIONS ASSOCIATE, CMP #### [facility] [address] [place] [address] Josef Xiomara CO2 [Moles/Vol] 29.1 mmol/L Normal 22.0-30.0 [facility] Comment on above: Performed By: #### B CLIENT RELATIONS ASSOCIATE, CMP #### [facility] [address] [place] [address] Josef Xiomara Creatinine [Mass/Vol] 0.59 mg/dL Normal 0.52-1.04 [facility] Comment on above: Performed By: #### B CLIENT RELATIONS ASSOCIATE, CMP #### [facility] [address] [place], [place] [address] Josef Xiomara EGFR-AF KYRGYZ >60 Normal >=[address] [facility] Comment on above: Performed By: #### B CLIENT RELATIONS ASSOCIATE, CMP #### [facility] [address] [place] [address] Josef Xiomara EGFR-NON AF KYRGYZ >60 Normal >=60 [facility] Comment on above: Performed By: #### B CLIENT RELATIONS ASSOCIATE, CMP #### [facility] [address] [place] [address] Josef Xiomara Globulin (S) [Mass/Vol] 3.3 g/dL Normal [facility] Comment on above: Performed By: #### B CLIENT RELATIONS ASSOCIATE, CMP #### [facility] [address] [place] [address] Josef Xiomara Glucose [Mass/Vol] 72 mg/dL Critically low 74-106 [facility] Comment on above: Performed By: #### B CLIENT RELATIONS ASSOCIATE, CMP #### [facility] [address] [place], [place] [address] Josef Xiomara Potassium [Moles/Vol] 4.0 mmol/L Normal 3.4-5.0 [facility] Comment on above: Performed By: #### B CLIENT RELATIONS ASSOCIATE, CMP #### [facility] [address] [place], [place] [address] Josef Xiomara Protein [Mass/Vol] 7.1 g/dL Normal 6.1-8.2 [facility] Comment on above: Performed By: #### B CLIENT RELATIONS ASSOCIATE, CMP #### [facility] [address] [place], [place] [address] Josef Xiomara Sodium [Moles/Vol] 141 mmol/L Normal 137-145 [facility] Comment on above: Performed By: #### B CLIENT RELATIONS ASSOCIATE, CMP #### [facility] [address] [place], [place] [address] Josef Xiomara Urea nitrogen [Mass/Vol] 20.0 mg/dL Critically high 7.0-17.0 [facility] Comment on above: Performed By: #### B CLIENT RELATIONS ASSOCIATE, CMP #### [facility] [address] [place], [place] [address] Josef Xiomara Urea nitrogen/Creatinin e [Mass ratio] 33.9 mg/mg Normal [facility] Comment on above: Performed By: #### B CLIENT RELATIONS ASSOCIATE, CMP #### [facility] [address] [place], [place] [address] Josef Xiomara Pre-Certification Formon Pre-Certification Form [id number]#1.0 0CD:[address] [facility] Consent for Procedure/Surger yon 08-05-2020 Consent for Procedure/Surgery [id number]#1.0 0CD:[address] [facility] General Surgery Office/Clini c Noteon 08-04-2020 General [...] trivalent - Not Given Patient Refuses Normal [facility] Comment on above: Result Comment: Elec tronically Signed By: CASEY DA SILVA, Hayes Goodwin\Date and Time Signed: 08/04/20 21:25 EDT Patient Educationon 06-13-20 21 Patient Education Gastroenterology Open Hernia Repair, Adult [...] including vitamins, herbs, eye drops, creams, and laug-ibh-oeshllk medicines. ? Any problems you or family [...] 08/04/2001 Document Revised: 01/21/2018 Document Reviewed: 07/22/2016 [employer] Location, IP Patient Education ? [address] [employer] [address] [facility] Lab Reportson 07-26-2020 Lab Reports [id number]#1.0 0CD:[address] [facility] RAD - CT Reporton 07-26-2020 RAD - CT Report [id number]#1.0 0CD:[address] [facility] CREATININEon 07-25-2020 Creatinine [Mass/Vol] 0.63 mg/dL Normal 0.52-1.04 [facility] Comment on above: Performed By: #### C ZEYAD #### [facility] [address] [place] [address] Xiomara EGFR-AF KYRGYZ >60 Normal >=[address] [facility] Comment on above: Performed By: #### C ZEYAD #### [facility] [address] [place] [address] Xiomara EGFR-NON AF KYRGYZ >60 Normal >=60 [facility] Comment on above: Performed By: #### C ZEYAD #### [facility] [address] [place] [address] PELVIS W CONon 07-25-2020 CT PELVIS [...] by: ALLEY ALLEN Date: 2020-07-25 14:11 Normal [facility] Pre-Certification Formon Pre-Certification Form [id number]#1.0 0CD:[address] [facility] Provider Letter FTon 07-18 Provider Letter [facility] Katelyn Kaufman, [address] [place] [address] [place] [address] Re: SHANIQUE CAMARGO Date of : 1955 Thank you for your referral of Shanique Camargo who was seen on consultation on July 16, 2020, for lipoma on left groin. Testing has been ordered for further evaluation. I have enclosed my consultation notes for your review. I will be happy to follow Shanique. Sincerely, Hayes Bolden MD General Surgery [facility] Ambulatory Clinical Summaryo n 07-16-2020 Ambulatory Clinical Summary {[id number] b-53}CD:300894 [facility] Patient Educationon 07-17-19 21 Patient Education [facility] Physician Referralon 021 Physician Referral [id number] 0CD:127 [facility] Encounters Encounter Date Encounter Type Care Provider Facility Start: 09-14-2023 ambulatory NON STAFF Facility:[facility] Start: 07-04-2021 End: 07-05-[address] KATELYN KAUFMAN Facility:[facility] Start: 03-10-2021 End: 03-11-[address] KATELYN KAUFMAN Facility:[facility] Start: 09-09-2020 Encounter for prepro cedural laboratory examination DR HAYES BOLDEN [facility] Start: 09-04-2020 End: 09-04-[address] HAYES BOLDEN Facility:[facility] Start: 08-31-2020 End: 09-01-[address] HAYES BOLDEN Facility:[facility] Start: 08-31-2020 End: 09-01-2020 Encounter for preprocedural laboratory examination DR HAYES BOLDEN Facility:[facility] Start: 08-30-2020 Encounter for prepro cedural cardiovascular examination DR HAYES BOLDEN [facility] Start: 08-22-2020 End: 08-23-[address] HAYES BOLDEN Facility:[facility] Start: 07-25-2020 End: 07-26-[address] HAYES BOLDEN Facility:[facility] Start: 07-12-2020 End: 07-12-[address] ALLEY ALLEN Facility:[facility] Payers Date Payer Category Payer Self-pay 2023 Private Health Insurance [id number] 1961 Medicare [id number] 1961 Medicare [id number] 1955 Unknown [id number] 2.16.84 [id number] 1955 Unknown [id number] 2.16.84 [id number] 1955 Unknown [id number] 2.16.84 [id number] 1955 Unknown [id number] 2.16.84 [id number] 1955 Unknown [id number] 2.16.84 [id number] 1955 Unknown [id number] 2.16.84 [id number] 1955 Unknown [id number] 2.16.84 [id number] Unknown [id number] 2.16.8 [id number] Clinical Note 03-10-2021 Note Date & Type [...] authenticated by: EDMOND CAAL Date: 2021-03-10 13:48 [facility] Clinical Note 09-04-2020 Note Date & Type [...] Recovery Room in good condition. cc:Dr. Kaufman. [facility] Signed and Approved by: DR HAYES BOLDEN . 09/06/2020 08:06:00 [facility] Clinical Note 07-16-2020 Note Date & Type [...] live, trivalent - Not Given Patient Refuses [facility] Comment on above: Result Comment: Elec tronically Signed By: CASEY DA SILVA, Hayes Goodwin\Date and Time Signed: 07/16/20 14:53 EDT Clinical [...] by: ALLEY ALLEN Date: 2020-07-12 13:58 [facility] Summary Purpose Family History No Family History Records FoundNo Family History Records FoundNo Family History Records Found Advance Directives No Advanced Directives Records FoundNo Advanced Directives Records FoundNo Advanced Directives Records Found Additional Source Comments INFORMATION SOURCE (unrecogn ized section and content) DATE CREATED AUTHOR 10/03/2020 [facility] DATE CREATED AUTHOR AUTHOR'S ORGANIZ ATION 07/12/[address] [facility] DATE CREATED AUTHOR AUTHOR'S ORGANIZ ATION 09/17/2023 [facility] [address] [facility] FOR RECORDS PERTAINING TO PATIENTS WHO ARE [...] BE BASED ON THE PRIMARY CLINICAL RECORDS. [employer] provides no warranty or guarantee of the accuracy or completeness of information in this document.
== END 2023-09-17 10:17 | disposition home or self-care (01) ==
LOC: US 10:16
PROVIDERS: PCP Family Medicine; Visit Provider Family Medicine
DX: R10.9 Unspecified abdominal pain (principal); R10.13 Epigastric pain
CPT/HCPCS: 76705

== ENCOUNTER 2023-09-23 11:53 | Outpatient (OUT) | payer MEDICARE, SELFPAY ==
--- OUTSIDE RECORDS SUMMARY | 2023-09-23 11:56 | XMS_ITS | CCD ---
Author Organization [facility] Care Team Providers Care Manager Business Planning Name Role Phone DR ALLEY ALLEN Consulting [...] : DR KATELYN KAUFMAN . Admission #: [id number] Family : Order #: [id number] CLICK HERE TO VIEW EXAM RADIOLOGY REPORT [...] colon cancer at age 70. LOCATION: [facility] BREAST COMPOSITION: Almost entirely fatty. [...] Caal MD on 07/04/2021 at 15:03 Normal [facility] Ambulatory Clinical Summaryo n 10-02-2020 Ambulatory Clinical Summary {[id number]}CD:[id number] Normal [facility] General Surgery Office/Clini c Noteon 10-02-2020 General [...] Corona In [address] [place] [address]- Additional Instructions: Hayes BOLDEN MD, SUR In 3 months [address] [place] [address]- Additional Instructions: Hayes BOLDEN MD, SUR Only if needed [address] [place] [address]- Additional Instructions: Problem List/Past Medical History Ongoing [...] trivalent - Not Given Patient Refuses Normal [facility] Comment on above: Result Comment: Elec tronically Signed By: Hayes BOLDEN MD\.br\Date and Time Signed: 10/02/20 14:02 EDT Provider Letter FTon 10-02 Provider [place] [facility] [place] SHANIQUE CAMARGO [address] [place] [address] SHANIQUE CAMARGO 1955 To Whom It May Concern, The above named patient may return to work without restrictions on 10/07/20. Sincerely, Dr. Hayes Bolden MD general surgery Normal [facility] Ambulatory Clinical Summaryo n 09-18-2020 Ambulatory Clinical Summary {[id number]}CD:[id number] Normal [facility] General Surgery Office/Clini c Noteon 09-18-2020 General Surgery Office/Clinic Note HPI Staff 2 week post operative visit following left inguinal hernia repair at [facility] on 09/04/20. History of Present Illness [...] trivalent - Not Given Patient Refuses Normal [facility] Comment on above: Result Comment: Elec tronically Signed By: CASEY DA SILVA, Hayes Goodwin\Date and Time Signed: 09/18/20 13:14 EDT Ambulatory Clinical Summaryo n 09-17-2020 Ambulatory Clinical Summary {[id number]}CD:[id number] Normal [facility] General Surgery Office/Clini c Noteon 09-14-2020 General [...] trivalent - Not Given Patient Refuses Normal [facility] Comment on above: Result Comment: Elec tronically Signed By: CASEY DA SILVA, Hayes Goodwin\Date and Time Signed: 09/14/20 10:45 EDT Operative Reporton Operative Report [id number]#1.0 0CD:127 Normal [facility] Pathology Noteon 09-06-2020 Pathology Note [id number]#1.0 0CD:127 Normal [facility] Covid-19 PCR (CVDTB)on 08-22 SARS-CoV-2 (COVID-19) RNA JESSENIA+probe Ql (Unsp spec) Not detected Normal NOT DETECTED [facility] Comment on above: Result Comment: This test is not yet approved or cleared by the [place] FDA. When there are no FDA-approved or cleared tests available, and other criteria are met, FDA can make tests available under an emergency access mechanism called an Emergency Use Authorization (EUA). The EUA for this test is supported by the Ophthalmology Assistant of Health and Human Service's (HHS's) declaration [...] SARS-CoV-2. Performed By: #### C VDTBH #### [facility] Laboratory [address] [place] [address] Josef Solano Ambulatory Clinical Summaryo n 08-29-2020 Ambulatory Clinical Summary {[id number]}CD:[id number] Normal [facility] ECG 12-Leadon 08-23-2020 ECG 12-Lead [id number]#1.0 0CD:127 Normal [facility] Lab Reportson 08-23-2020 Lab Reports [id number]#1.0 0CD:127 Normal [facility] BNPon 08-22-2020 Natriuretic peptide B (Bld) [Mass/Vol] 168.0 pg/mL Normal <=900.0 [facility] Comment on above: Performed By: #### B METALLURGICAL INSPECTOR, CMP #### [facility] Laboratory [address] [place] [address] Josef Solano CBC AUTO DIFFon 08-22-2020 BASO # 0.0 103/ul Normal 0.0-0.1 [facility] Comment on above: Performed By: #### C BC ####[facility] [address] [place], [place] [address]Jwnwzs Xiomara Basophils/100 WBC (Bld) 0.6 % Normal 0.2-2.0 [facility] Comment on above: Performed By: #### C BC ####[facility] [address] [place] [address]Jxoocs Xiomara EO # 0.1 103/ul Normal 0.0-0.7 [facility] Comment on above: Performed By: #### C BC ####[facility] [address] [place], [place] [address]Gerken Xiomara Eosinophils/100 WBC (Bld) 0.9 % Normal 0.9-7.0 [facility] Comment on above: Performed By: #### C BC ####[facility] [address] [place], [place] [address]Gerken Xiomara Erythrocyte distribution width (RBC) [Ratio] 12.7 % Normal 11.0-15.0 [facility] Comment on above: Performed By: #### C BC ####[facility] [address] [place], [place] [address]Gerken Xiomara Hematocrit (Bld) [Volume fraction] 40.3 % Normal 36.0-48.0 [facility] Comment on above: Performed By: #### C BC ####[facility] [address] [place], [place] [address]Gerken Xiomara Hemoglobin (Bld) [Mass/Vol] 12.9 g/dL Normal 12.0-16.0 [facility] Comment on above: Performed By: #### C BC ####[facility] [address] [place], [place] [address]Gerken Xiomara IG # 0.01 10e3/ul Normal 0.00-0.03 [facility] Comment on above: Performed By: #### C BC ####[facility] [address] [place], [place] [address]Gerken Xiomara IG % 0.1 % Normal 0.0-0.5 [facility] Comment on above: Performed By: #### C BC ####[facility] [address] [place], [place] [address]Xmzejg Xiomara LYMPH # 2.4 103/ul Normal 1.2-3.8 [facility] Comment on above: Performed By: #### C BC ####[facility] [address] [place], [place] [address]Imncwu Xiomara Lymphocytes/100 WBC (Bld) 34.5 % Normal 20.5-60.0 [facility] Comment on above: Performed By: #### C BC ####[facility] [address] [place], [place] [address]Rwilqb Xiomara MANUAL DIFF REQ NO Normal [facility] Comment on above: Performed By: #### C BC ####[facility] [address] [place] [address]Gerken Xiomara MCH (RBC) [Entitic mass] 30.0 pg Normal 26.7-34.0 [facility] Comment on above: Performed By: #### C BC ####[facility] [address] [place], [place] [address]Gerken Xiomara MCHC (RBC) [Mass/Vol] 32.0 g/dL Normal 29.9-35.2 [facility] Comment on above: Performed By: #### C BC ####[facility] [address] [place], [place] [address]Gerken Xiomara MCV (RBC) [Entitic vol] 93.7 fL Normal 81.0-99.0 [facility] Comment on above: Performed By: #### C BC ####[facility] [address] [place], [place] [address]Predzl Xiomara MONO # 0.7 103/ul Normal 0.3-0.8 [facility] Comment on above: Performed By: #### C BC ####[facility] [address] [place] [address]Gerken Xiomara Monocytes/100 WBC (Bld) 9.3 % Normal 1.7-12.0 [facility] Comment on above: Performed By: #### C BC ####[facility] [address] [place], [place] [address]Uibjhp Karen NEUT # 3.8 103/ul Normal 1.4-6.5 [facility] Comment on above: Performed By: #### C BC ####[facility] [address] [place] [address]Gerbrandt Solano Neutrophils/100 WBC (Bld) 54.6 % Normal 43.0-75.0 [facility] Comment on above: Performed By: #### C BC ####[facility] [address] [place] [address]Josef Solano Platelet mean volume (Bld) [Entitic vol] 11.0 fL Normal 9.5-13.5 [facility] Comment on above: Performed By: #### C BC ####[facility] [address] [place] [address]Gerken Xiomara PLT 211 103/ul Normal 150-450 [facility] Comment on above: Performed By: #### C BC ####[facility] [address] [place] [address]Gerbrandt Solano RBC 4.30 106/ul Normal 4.20-5.40 [facility] Comment on above: Performed By: #### C BC ####[facility] [address] [place] [address]Gerbrandt Solano WBC 7.0 103/ul Normal 4.0-11.0 [facility] Comment on above: Performed By: #### C BC ####[facility] [address] [place], [place] [address]MahoreJosef Solano D-DIMERon 08-22-2020 D-DIMER 0.25 mg/L FEU Normal 0.19-0.50 [facility] Comment on above: Performed By: #### D DIM #### [facility] [address] [place], [place] [address] Josef Solano D-DIMER COMMENTS SEE BELOW Normal [facility] Comment on above: Result Comment: Incr eases [...] hospitalization. Performed By: #### D DIM #### [facility] [address] [place], [place] [address] Josef Solano PROF 14(COMP METB)on 021 Albumin [Mass/Vol] 3.8 g/dL Normal 3.5-5.0 [facility] Comment on above: Performed By: #### B METALLURGICAL INSPECTOR, CMP #### [facility] [address] [place], [place] [address] Josefbrandt Solano Albumin/Globulin [Mass ratio] 1.2 {ratio} Normal [facility] Comment on above: Performed By: #### B METALLURGICAL INSPECTOR, CMP #### [facility] [address] [place] [address] Josef Xiomara ALP [Catalytic activity/Vol] 81 U/L Normal 38-126 [facility] Comment on above: Performed By: #### B METALLURGICAL INSPECTOR, CMP #### [facility] [address] [place], [place] [address] Josef Xoimara ALT [Catalytic activity/Vol] 22 U/L Normal 9-52 [facility] Comment on above: Performed By: #### B METALLURGICAL INSPECTOR, CMP #### [facility] [address] [place], [place] [address] Josef Xiomara Anion gap [Moles/Vol] 11.9 mmol/L Normal [facility] Comment on above: Performed By: #### B METALLURGICAL INSPECTOR, CMP #### [facility] [address] [place], [place] [address] Josef Xiomara AST [Catalytic activity/Vol] 18 U/L Normal 14-36 [facility] Comment on above: Performed By: #### B METALLURGICAL INSPECTOR, CMP #### [facility] [address] [place] [address] Josef Xiomara Bilirubin [Mass/Vol] 0.4 mg/dL Normal 0.2-1.3 [facility] Comment on above: Performed By: #### B METALLURGICAL INSPECTOR, CMP #### [facility] [address] [place] [address] Josef Xiomara Calcium [Mass/Vol] 8.7 mg/dL Normal 8.4-10.2 [facility] Comment on above: Performed By: #### B METALLURGICAL INSPECTOR, CMP #### [facility] [address] [place] [address] Josef Xiomara Chloride [Moles/Vol] 104 mmol/L Normal 98-107 [facility] Comment on above: Performed By: #### B METALLURGICAL INSPECTOR, CMP #### [facility] [address] [place] [address] Josef Xiomara CO2 [Moles/Vol] 29.1 mmol/L Normal 22.0-30.0 [facility] Comment on above: Performed By: #### B METALLURGICAL INSPECTOR, CMP #### [facility] [address] [place] [address] Josef Xiomara Creatinine [Mass/Vol] 0.59 mg/dL Normal 0.52-1.04 [facility] Comment on above: Performed By: #### B METALLURGICAL INSPECTOR, CMP #### [facility] [address] [place], [place] [address] Josef Xiomara EGFR-AF NAMIBIAN >60 Normal >=60 [facility] Comment on above: Performed By: #### B METALLURGICAL INSPECTOR, CMP #### [facility] [address] [place] [address] Josef Xiomara EGFR-NON AF NAMIBIAN >60 Normal >=60 [facility] Comment on above: Performed By: #### B METALLURGICAL INSPECTOR, CMP #### [facility] [address] [place] [address] Josef Xiomara Globulin (S) [Mass/Vol] 3.3 g/dL Normal [facility] Comment on above: Performed By: #### B METALLURGICAL INSPECTOR, CMP #### [facility] [address] [place] [address] Josef Xiomara Glucose [Mass/Vol] 72 mg/dL Critically low 74-106 [facility] Comment on above: Performed By: #### B METALLURGICAL INSPECTOR, CMP #### [facility] [address] [place], [place] [address] Josef Xiomara Potassium [Moles/Vol] 4.0 mmol/L Normal 3.4-5.0 [facility] Comment on above: Performed By: #### B METALLURGICAL INSPECTOR, CMP #### [facility] [address] [place], [place] [address] Josef Xiomara Protein [Mass/Vol] 7.1 g/dL Normal 6.1-8.2 [facility] Comment on above: Performed By: #### B METALLURGICAL INSPECTOR, CMP #### [facility] [address] [place], [place] [address] Josef Xiomara Sodium [Moles/Vol] 141 mmol/L Normal 137-145 [facility] Comment on above: Performed By: #### B METALLURGICAL INSPECTOR, CMP #### [facility] [address] [place], [place] [address] Josef Xiomara Urea nitrogen [Mass/Vol] 20.0 mg/dL Critically high 7.0-17.0 [facility] Comment on above: Performed By: #### B METALLURGICAL INSPECTOR, CMP #### [facility] [address] [place], [place] [address] Josef Xiomara Urea nitrogen/Creatinin e [Mass ratio] 33.9 mg/mg Normal [facility] Comment on above: Performed By: #### B METALLURGICAL INSPECTOR, CMP #### [facility] [address] [place], [place] [address] Josef Xiomara Pre-Certification Formon Pre-Certification Form [id number]#1.0 0CD:127 Normal [facility] Consent for Procedure/Surger yon 08-05-2020 Consent for Procedure/Surgery [id number] 0CD:127 Normal [facility] General Surgery Office/Clini c Noteon 08-04-2020 General [...] trivalent - Not Given Patient Refuses Normal [facility] Comment on above: Result Comment: Elec tronically [...] including vitamins, herbs, eye drops, creams, and aray-jev-snzoqsd medicines. ? Any problems you or family [...] 08/04/2001 Document Revised: 01/21/2018 Document Reviewed: 07/22/2016 [employer] Patient Education ? 2020 [employer] Normal [facility] Lab Reportson 07-26-2020 Lab Reports [id number] 0CD:127 Normal [facility] RAD - CT Reporton 07-26-2020 RAD - CT Report [id number]#1.0 0CD:127 Normal [facility] CREATININEon 07-25-2020 Creatinine [Mass/Vol] 0.63 mg/dL Normal 0.52-1.04 [facility] Comment on above: Performed By: #### C ZEYAD #### [facility] [address] [place] [address] Xiomara EGFR-AF NAMIBIAN >60 Normal >=60 [facility] Comment on above: Performed By: #### C ZEYAD #### [facility] [address] [place] [address] Xiomara EGFR-NON AF NAMIBIAN >60 Normal >=60 [facility] Comment on above: Performed By: #### C ZEYAD #### [facility] [address] [place] [address] PELVIS W CONon 07-25-2020 [...] by: ALLEY ALLEN Date: 2020-07-25 14:11 Normal [facility] Pre-Certification Formon Pre-Certification Form [id number]#1.0 0CD:127 Normal [facility] Provider Letter FTon 07-18 Provider [place] [facility] [place]atelyn [place]aufman, [address] [facility] [address] [place] [address] [place] [address] Re: SHANIQUE CAMARGO Date of : 1955 Thank you for your referral of Shanique Camargo who was seen on consultation on July 16, 2020, for lipoma on left groin. Testing has been ordered for further evaluation. I have enclosed my consultation notes for your review. I will be happy to follow Shanique. Sincerely, Hayes Bolden MD General Surgery [facility] Ambulatory Clinical Summaryo n 07-16-2020 Ambulatory Clinical Summary {[id number]}CD:[id number] [facility] Patient Educationon 07-17-19 21 Patient Education [facility] Physician Referralon 021 Physician Referral [id number] 0CD:127 [facility] Encounters Encounter Date Encounter Type Care Provider Facility Start: 09-14-2023 ambulatory NON STAFF Facility:[facility] Start: 07-04-2021 End: 07-05-[address] KATELYN KAUFMAN Facility:[facility] Start: 03-10-2021 End: 03-11-[address] KATELYN KAUFMAN Facility:[facility] Start: 09-09-2020 Encounter for prepro cedural laboratory examination DR HAYES BOLDEN [facility] Start: 09-04-2020 End: 09-04-[address] HAYES BOLDEN Facility:[facility] Start: 08-31-2020 End: 09-01-[address] HAYES BOLDEN Facility:[facility] Start: 08-31-2020 End: 09-01-2020 Encounter for preprocedural laboratory examination DR HAYES BOLDEN Facility:[facility] Start: 08-30-2020 Encounter for prepro cedural cardiovascular examination DR HAYES BOLDEN [facility] Start: 08-22-2020 End: 08-23-[address] HAYES BOLDEN Facility:[facility] Start: 07-25-2020 End: 07-26-[address] HAYES BOLDEN Facility:[facility] Start: 07-12-2020 End: 07-12-[address] ALLEY ALLEN Facility:[facility] Payers Date Payer Category Payer Self-pay 2023 Private Health Insurance [id number] 1961 Medicare [id number] 1961 Medicare [id number] 1955 Unknown [id number] 2.16.84 [id number] 1955 Unknown [id number] 2.16.84 [id number] 1955 Unknown [id number] 2.16.84 [id number] 1955 Unknown [id number] 2.16.84 [id number] 1955 Unknown [id number] 2.16.84 [id number] 1955 Unknown [id number] 2.16.84 [id number] 1955 Unknown [id number] 2.16.84 [id number] Unknown [id number] 2.16.8 [id number] Clinical Note 03-10-2021 Note Date & Type [...] authenticated by: EDMOND CAAL Date: 2021-03-10 13:48 [facility] Clinical Note 09-04-2020 Note Date & [...] Recovery Room in good condition. cc:Dr. Kaufman. [facility] Signed and Approved by: DR HAYES BOLDEN . 09/06/2020 08:06:00 [facility] Clinical Note 07-16-2020 Note Date [...] live, trivalent - Not Given Patient Refuses [facility] Comment on above: Result Comment: Elec tronically [...] by: ALLEY ALLEN Date: 2020-07-12 13:58 [facility] Summary Purpose Family History No Family History Records FoundNo Family History Records FoundNo Family History Records Found Advance Directives No Advanced Directives Records FoundNo Advanced Directives Records FoundNo Advanced Directives Records Found Additional Source Comments INFORMATION SOURCE (unrecogn ized section and content) DATE CREATED AUTHOR 10/03/2020 [facility] DATE CREATED AUTHOR AUTHOR'S ORGANIZ ATION 07/12/2021 [facility] DATE CREATED AUTHOR AUTHOR'S ORGANIZ ATION 09/17/2023 [facility] FOR RECORDS PERTAINING TO PATIENTS [...] BE BASED ON THE PRIMARY CLINICAL RECORDS. [employer] provides no warranty or guarantee of the accuracy or completeness of information in this document.
--- NOTE | 2023-09-23 12:05 | CT_ITS ---
[address] [address] Patient Name: MARY JO ROBLES MRN: [id number] date: 1955 Sex: F Assigned Patient Location: LAB Current Patient Location: Accession/Order Number: [id number] Exam Date: 09/23/2023 13:15 Report Date: 09/24/2023 05:15 At the request of: KATELYN YOON Procedure: CT abdomen pelvis w con EXAMINATION: CT abdomen pelvis w con HISTORY: Gastroenteritis ; lower abdominal pain, nausea COMPARISON: Ultrasound right upper quadrant 09/17/2023, CT pelvis 07/25/2020 TECHNIQUE: Axial, Coronal, and Sagittal images were obtained without and/or with IV contrast as indicated by examination type. Dose reduction techniques were achieved by using automated exposure control and/or adjustment of mA and/or kV according to patient size and/or use of iterative reconstruction technique. FINDINGS: LUNG BASES: No visible pulmonary or pleural disease. LIVER: Tiny round hypodensity within hepatic dome favoring a cyst. No enlargement, atrophy, suspicious density, or significant focal lesion. BILIARY: No dilatation or calcification. PANCREAS: No lesion, fluid collection, or abnormal duct dilatation. SPLEEN: Innumerable calcifications within spleen compatible with chronic granulomatous disease. No enlargement. ADRENALS: 1.3 cm left adrenal nodule; nonspecific. KIDNEYS: No mass, obstruction, or calcification. BOWEL/MESENTERY: Innumerable diverticula involving the descending and sigmoid colon with suspected mild inflammatory changes of the proximal and mid sigmoid colon. No visible mass, obstruction, or focal bowel wall thickening. Normal appendix. Unremarkable stomach and small bowel. AORTA/VASCULAR: No aneurysm or dissection. RETROPERITONEUM: No mass or adenopathy. LYMPH NODES: No adenopathy. URINARY BLADDER: No visible focal wall thickening, lesion, or calculus. PELVIC ORGANS: Hysterectomy. ABDOMINAL WALL: No mass or hernia. BONES: L4-L5 marked degenerative disc disease with degenerative sclerotic endplate changes. Multilevel moderate degenerative disc disease. OTHER: Negative. CT/CT abdomen pelvis w con IMPRESSION: 1. Suspect mild acute diverticulitis of the sigmoid colon. Electronically authenticated by: ALLEY ALLEN Date: 09/24/2023 05:15
[2023-09-23 12:13] LABS: Estimated GFR (African America >60 (>=60); Estimated GFR (Non-African Ame >60 (>=60)
== END 2023-09-23 11:54 | disposition home or self-care (01) ==
LOC: LAB 11:53
PROVIDERS: PCP Family Medicine; Visit Provider Family Medicine
DX: Z01.818 Encounter for other preprocedural examination (principal); K52.9 Noninfective gastroenteritis and colitis, unspecified; K57.92 Diverticulitis of intestine, part unspecified, without perforation or abscess without bleeding
CPT/HCPCS: 36415; 74177; 82565; Q9967

== ENCOUNTER 2023-10-12 10:17 | Outpatient (OUT) | payer MEDICARE, SELFPAY ==
--- OUTSIDE RECORDS SUMMARY | 2023-10-12 10:25 | XMS_ITS | CCD ---
Author Organization [facility] Care Team Providers Care Frame Straightener Name Role Phone DR ALLEY ALLEN Consulting [...] Consulting Unavailable KARRIE, DR ZEPEDA Admitting Unavailable MANUELAY, DR ZEPEDA Attending Unavailable HOY, DR ZEPEDA Consulting Unavailable MANUELAY, DR ZEPEDA Primary Care Unavailable WEST, DR EDMOND Humphries Consulting Unavailable Katelyn Kaufman Primary Care Unavailable Jas Kelly Attending Unavailable Jas Kelly Admitting Unavailable Problems Active Problems Problem Classification Problem [...] : DR KATELYN KAUFMAN . Admission #: [id number] Family : Order #: [id number] CLICK HERE TO VIEW EXAM RADIOLOGY REPORT [...] colon cancer at age 70. LOCATION: [facility] BREAST COMPOSITION: Almost entirely fatty. FINDINGS: [...] Caal MD on 07/04/2021 at 15:03 Normal [facility] Ambulatory Clinical Summaryo n 10-02-2020 Ambulatory Clinical Summary {[id number]-[id number] d-63}CD:[id number] Normal [facility] General Surgery Office/Clini c Noteon 10-02-2020 General [...] Follow-up With When Contact Information CASEY DA SILVAHayes SUR In 3 months [address] [place] [address]- Additional Instructions: Hayes BOLDEN MD, SUR In 3 months [address] [place] [address]- Additional Instructions: Hayes BOLDEN MD, SUR Only if needed [address] [place] [address]- Additional Instructions: Problem List/Past Medical History Ongoing [...] trivalent - Not Given Patient Refuses Normal [facility] Comment on above: Result Comment: Elec tronically Signed By: Hayes BOLDEN MD\.br\Date and Time Signed: 10/02/20 14:02 EDT Provider Letter FTon 10-02 Provider Letter [facility] October 02, 2020 SHANIQUE CAMARGO [address] [place] [address] SHANIQUE CAMARGO 1955 To Whom It May Concern, The above named patient may return to work without restrictions on 10/07/20. Sincerely, Dr. Hayes Bolden MD general surgery Normal [facility] Ambulatory Clinical Summaryo n 09-18-2020 Ambulatory Clinical Summary {[id number]-9 7-cc}CD:[id number] Normal [facility] General Surgery Office/Clini c Noteon 09-18-2020 General Surgery Office/Clinic Note HPI Staff 2 week post operative visit following left inguinal hernia repair at [facility] on 09/04/20. History of Present Illness [...] trivalent - Not Given Patient Refuses Normal [facility] Comment on above: Result Comment: Elec tronically Signed By: CASEY DA SILVA, Hayes Beasley\jazz\Date and Time Signed: 09/18/20 13:14 EDT Ambulatory Clinical Summaryo n 09-17-2020 Ambulatory Clinical Summary {[id number]-6 1-7e}CD:[id number] Normal [facility] General Surgery Office/Clini c Noteon 09-14-2020 General [...] trivalent - Not Given Patient Refuses Normal [facility] Comment on above: Result Comment: Elec tronically Signed By: CASEY DA SILVA, Hayes Beasley\jazz\Date and Time Signed: 09/14/20 10:45 EDT Operative Reporton Operative Report [id number].. [id number]#1.0 0CD:127 Normal [facility] Pathology Noteon 09-06-2020 Pathology Note [id number]#1.0 0CD:127 Normal [facility] Covid-19 PCR (CVDTB)on 08-22 SARS-CoV-2 (COVID-19) RNA JESSENIA+probe Ql (Unsp spec) Not detected Normal NOT DETECTED [facility] Comment on above: Result Comment: This test is not yet approved or cleared by the [place] FDA. When there are no FDA-approved or cleared tests available, and other criteria are met, FDA can make tests available under an emergency access mechanism called an Emergency Use Authorization (EUA). The EUA for this test is supported by the Executive Personal Assistant of Health and Human Service's (HHS's) [...] SARS-CoV-2. Performed By: #### C VDTB #### [facility] [address] [place] [address] Josef Solano Ambulatory Clinical Summaryo n 08-29-2020 Ambulatory Clinical Summary {[id number]-c e-54}CD:[id number] Normal [facility] ECG 12-Leadon 08-23-2020 ECG 12-Lead [id number] 70 [id number]#1.0 0CD:127 Normal [facility] Lab Reportson 08-23-2020 Lab Reports [id number]#1.0 0CD:127 Normal [facility] BNPon 08-22-2020 Natriuretic peptide B (Bld) [Mass/Vol] 168.0 pg/mL Normal <=900.0 [facility] Comment on above: Performed By: #### B COLLEGE BASKETBALL COACH, CMP #### [facility] [address] [place] [address] Josef Solano CBC AUTO DIFFon 08-22-2020 BASO # 0.0 103/ul Normal 0.0-0.1 [facility] Comment on above: Performed By: #### C BC ####[facility] [address] [place], [place] [address]Qszozk Xiomara Basophils/100 WBC (Bld) 0.6 % Normal 0.2-2.0 [facility] Comment on above: Performed By: #### C BC ####[facility] [address] [place] [address]Mizqwc Xiomara EO # 0.1 103/ul Normal 0.0-0.7 [facility] Comment on above: Performed By: #### C BC ####[facility] [address] [place] [address]Cxggqf Xiomara Eosinophils/100 WBC (Bld) 0.9 % Normal 0.9-7.0 [facility] Comment on above: Performed By: #### C BC ####[facility] [address] [place], [place] [address]Gerken Xiomara Erythrocyte distribution width (RBC) [Ratio] 12.7 % Normal 11.0-15.0 [facility] Comment on above: Performed By: #### C BC ####[facility] [address] [place] [address]Nrjfsz Xiomara Hematocrit (Bld) [Volume fraction] 40.3 % Normal 36.0-48.0 [facility] Comment on above: Performed By: #### C BC ####[facility] [address] [place] [address]Nujpud Xiomara Hemoglobin (Bld) [Mass/Vol] 12.9 g/dL Normal 12.0-16.0 [facility] Comment on above: Performed By: #### C BC ####[facility] [address] [place], [place] [address]Gerken Xiomara IG # 0.01 10e3/ul Normal 0.00-0.03 [facility] Comment on above: Performed By: #### C BC ####[facility] [address] [place], [place] [address]Gerken Xiomara IG % 0.1 % Normal 0.0-0.5 [facility] Comment on above: Performed By: #### C BC ####[facility] [address] [place], [place] [address]Vacnah Xiomara LYMPH # 2.4 103/ul Normal 1.2-3.8 [facility] Comment on above: Performed By: #### C BC ####[facility] [address] [place], [place] [address]Rbldtn Xiomara Lymphocytes/100 WBC (Bld) 34.5 % Normal 20.5-60.0 [facility] Comment on above: Performed By: #### C BC ####[facility] [address] [place] [address]Gerken Xiomara MANUAL DIFF REQ NO Normal [facility] Comment on above: Performed By: #### C BC ####[facility] [address] [place], [place] [address]Gerken Xiomara MCH (RBC) [Entitic mass] 30.0 pg Normal 26.7-34.0 [facility] Comment on above: Performed By: #### C BC ####[facility] [address] [place], [place] [address]Gerken Xiomara MCHC (RBC) [Mass/Vol] 32.0 g/dL Normal 29.9-35.2 [facility] Comment on above: Performed By: #### C BC ####[facility] [address] [place] [address]Gerken Xiomara MCV (RBC) [Entitic vol] 93.7 fL Normal 81.0-99.0 [facility] Comment on above: Performed By: #### C BC ####[facility] [address] [place] [address]Gerken Xiomara MONO # 0.7 103/ul Normal 0.3-0.8 [facility] Comment on above: Performed By: #### C BC ####[facility] [address] [place] [address]Gerken Xiomara Monocytes/100 WBC (Bld) 9.3 % Normal 1.7-12.0 [facility] Comment on above: Performed By: #### C BC ####[facility] [address] [place], [place] [address]Bocczn Xiomara NEUT # 3.8 103/ul Normal 1.4-6.5 [facility] Comment on above: Performed By: #### C BC ####[facility] [address] [place], [place] [address]Ckvqvt Xiomara Neutrophils/100 WBC (Bld) 54.6 % Normal 43.0-75.0 [facility] Comment on above: Performed By: #### C BC ####[facility] [address] [place], [place] [address]Yjumed Karen Platelet mean volume (Bld) [Entitic vol] 11.0 fL Normal 9.5-13.5 [facility] Comment on above: Performed By: #### C BC ####[facility] [address] [place], [place] [address]Qhaimo Xiomara PLT 211 103/ul Normal 150-450 [facility] Comment on above: Performed By: #### C BC ####[facility] [address] [place], [place] [address]Iljrxu Xiomara RBC 4.30 106/ul Normal 4.20-5.40 [facility] Comment on above: Performed By: #### C BC ####[facility] [address] [place], [place] [address]Kuvpib Xiomara WBC 7.0 103/ul Normal 4.0-11.0 [facility] Comment on above: Performed By: #### C BC ####[facility] [address] [place], [place] [address]Uzbrnt Karen D-DIMERon 08-22-2020 D-DIMER 0.25 mg/L FEU Normal 0.19-0.50 [facility] Comment on above: Performed By: #### D DIM #### [facility] [address] [place], [place] [address] Josef Xiomara D-DIMER COMMENTS SEE BELOW Normal [facility] [...] hospitalization. Performed By: #### D DIM #### [facility] [address] [place] [address] Josef Solano PROF 14(COMP METB)on 021 Albumin [Mass/Vol] 3.8 g/dL Normal 3.5-5.0 [facility] Comment on above: Performed By: #### B COLLEGE BASKETBALL COACH, CMP #### [facility] [address] [place] [address] Josef Xiomara Albumin/Globulin [Mass ratio] 1.2 {ratio} Normal [facility] Comment on above: Performed By: #### B COLLEGE BASKETBALL COACH, CMP #### [facility] [address] [place] [address] Josef Xiomara ALP [Catalytic activity/Vol] 81 U/L Normal 38-126 [facility] Comment on above: Performed By: #### B COLLEGE BASKETBALL COACH, CMP #### [facility] [address] [place], [place] [address] Josef Xiomara ALT [Catalytic activity/Vol] 22 U/L Normal 9-52 [facility] Comment on above: Performed By: #### B COLLEGE BASKETBALL COACH, CMP #### [facility] [address] [place], [place] [address] Josef Xiomara Anion gap [Moles/Vol] 11.9 mmol/L Normal [facility] Comment on above: Performed By: #### B COLLEGE BASKETBALL COACH, CMP #### [facility] [address] [place], [place] [address] Josef Xiomara AST [Catalytic activity/Vol] 18 U/L Normal 14-36 [facility] Comment on above: Performed By: #### B COLLEGE BASKETBALL COACH, CMP #### [facility] [address] [place] [address] Josef Xiomara Bilirubin [Mass/Vol] 0.4 mg/dL Normal 0.2-1.3 [facility] Comment on above: Performed By: #### B COLLEGE BASKETBALL COACH, CMP #### [facility] [address] [place] [address] Josef Xiomara Calcium [Mass/Vol] 8.7 mg/dL Normal 8.4-10.2 [facility] Comment on above: Performed By: #### B COLLEGE BASKETBALL COACH, CMP #### [facility] [address] [place] [address] Josef Xiomara Chloride [Moles/Vol] 104 mmol/L Normal 98-107 [facility] Comment on above: Performed By: #### B COLLEGE BASKETBALL COACH, CMP #### [facility] [address] [place] [address] Josef Xiomara CO2 [Moles/Vol] 29.1 mmol/L Normal 22.0-30.0 [facility] Comment on above: Performed By: #### B COLLEGE BASKETBALL COACH, CMP #### [facility] [address] [place] [address] Josef Xiomara Creatinine [Mass/Vol] 0.59 mg/dL Normal 0.52-1.04 [facility] Comment on above: Performed By: #### B COLLEGE BASKETBALL COACH, CMP #### [facility] [address] [place] [address] Josef Xiomara EGFR-AF NORTH KOREAN >60 Normal >=60 [facility] Comment on above: Performed By: #### B COLLEGE BASKETBALL COACH, CMP #### [facility] [address] [place] [address] Josef Xiomara EGFR-NON AF NORTH KOREAN >60 Normal >=60 [facility] Comment on above: Performed By: #### B COLLEGE BASKETBALL COACH, CMP #### [facility] [address] [place] [address] Josef Xiomara Globulin (S) [Mass/Vol] 3.3 g/dL Normal [facility] Comment on above: Performed By: #### B COLLEGE BASKETBALL COACH, CMP #### [facility] [address] [place] [address] Josef Xiomara Glucose [Mass/Vol] 72 mg/dL Critically low 74-106 [facility] Comment on above: Performed By: #### B COLLEGE BASKETBALL COACH, CMP #### [facility] [address] [place], [place] [address] Josef Xiomara Potassium [Moles/Vol] 4.0 mmol/L Normal 3.4-5.0 [facility] Comment on above: Performed By: #### B COLLEGE BASKETBALL COACH, CMP #### [facility] [address] [place], [place] [address] Josef Xiomara Protein [Mass/Vol] 7.1 g/dL Normal 6.1-8.2 [facility] Comment on above: Performed By: #### B COLLEGE BASKETBALL COACH, CMP #### [facility] [address] [place], [place] [address] Josef Xiomara Sodium [Moles/Vol] 141 mmol/L Normal 137-145 [facility] Comment on above: Performed By: #### B COLLEGE BASKETBALL COACH, CMP #### [facility] [address] [place] [address] Josef Xiomara Urea nitrogen [Mass/Vol] 20.0 mg/dL Critically high 7.0-17.0 [facility] Comment on above: Performed By: #### B COLLEGE BASKETBALL COACH, CMP #### [facility] [address] [place], [place] [address] Josef Xiomara Urea nitrogen/Creatinin e [Mass ratio] 33.9 mg/mg Normal [facility] Comment on above: Performed By: #### B COLLEGE BASKETBALL COACH, CMP #### [facility] [address] [place] [address] Josef Xiomara Pre-Certification Formon Pre-Certification Form [id number] 0CD:127 Normal [facility] Consent for Procedure/Surger yon 08-05-2020 Consent for Procedure/Surgery [id number]#1.0 0CD:127 Normal [facility] General Surgery Office/Clini c Noteon 08-04-2020 General [...] trivalent - Not Given Patient Refuses Normal [facility] Comment on above: Result Comment: Elec tronically Signed By: CASEY DA SILVA, Hayes Goodwin\Date and Time Signed: 06/13/21 21:25 EDT Patient Educationon 08-05-19 21 Patient Education Gastroenterology Open Hernia Repair, [...] including vitamins, herbs, eye drops, creams, and jdxe-ixh-pexcuea medicines. ? Any problems you or family [...] 08/04/2001 Document Revised: 01/21/2018 Document Reviewed: 07/22/2016 [employer] Patient Education ? 2019 [employer] Normal [facility] Lab Reportson 07-26-2020 Lab Reports [id number]#1.0 0CD:127 Normal [facility] RAD - CT Reporton 07-26-2020 RAD - CT Report [id number]#1.0 0CD:127 Normal [facility] CREATININEon 07-25-2020 Creatinine [Mass/Vol] 0.63 mg/dL Normal 0.52-1.04 [facility] Comment on above: Performed By: #### C ZEYAD #### [facility] [address] [place] [address] EGFR-AF NORTH KOREAN >60 Normal >=60 [facility] Comment on above: Performed By: #### C ZEYAD #### [facility] [address] [place] [address] EGFR-NON AF [place]TH KOREAN >60 Normal >=60 [facility] Comment on above: Performed By: #### C ZEYAD #### [facility] [address] [place] [address] CT PELVIS W CONon 07-25-2020 CT PELVIS [...] by: ALLEY ALLEN Date: 2020-07-25 14:11 Normal [facility] Pre-Certification Formon Pre-Certification Form [id number]#1.0 0CD:127 Normal [facility] Provider Letter FTon 07-18 Provider Letter [facility] Katelyn Kaufman, [address] [place] [address] [address] [place] [address] Re: SHANIQUE CAMARGO Date of : 1955 Thank you for your referral of Shanique Camargo who was seen on consultation on July 16, 2020, for lipoma on left groin. Testing has been ordered for further evaluation. I have enclosed my consultation notes for your review. I will be happy to follow Shanique. Sincerely, Hayes Bolden MD General Surgery Normal [facility] Ambulatory Clinical Summaryo n 07-16-2020 Ambulatory Clinical Summary {[id number]-85-7 b-53}CD:[id number] Normal [facility] Patient Educationon 07-17-19 21 Patient Education [facility] Physician Referralon 021 Physician Referral [id number] 0CD:127 Normal [facility] Encounters Encounter Date Encounter Type Care Provider Facility Start: 09-14-2023 ambulatory Katelyn Kaufman Facility: [facility] Start: 07-04-2021 End: 07-05-[address] KATELYN KAUFMAN Facility:[facility] Start: 03-10-2021 End: 03-11-[address] KATELYN KAUFMAN Facility:[facility] Start: 09-09-2020 Encounter for prepro cedural laboratory examination DR HAYES BOLDEN [facility] Start: 09-04-2020 End: 09-04-[address] HAYES BOLDEN Facility:[facility] Start: 08-31-2020 End: 09-01-[address] HAYES BOLDEN Facility:[facility] Start: 08-31-2020 End: 09-01-2020 Encounter for preprocedural laboratory examination DR HAYES BOLDEN Facility:[facility] Start: 08-30-2020 Encounter for prepro cedural cardiovascular examination DR HAYES BOLDEN [facility] Start: 08-22-2020 End: 08-23-[address] HAYES BOLDEN Facility:[facility] Start: 07-25-2020 End: 07-26-[address] HAYES BOLDEN Facility:[facility] Start: 07-12-2020 End: 07-12-[address] ALLEY ALLEN Facility:[facility] Payers Date Payer Category Payer Self-pay 2023 Private Health Insurance [id number] 1961 Medicare [id number] 1961 Medicare [id number] 1955 Unknown [id number] 2.16.84 [id number] 1955 Unknown [id number] 2.16.84 [id number] 1955 Unknown [id number] 2.16.84 [id number] 1955 Unknown [id number] 2.16.84 [id number] 1955 Unknown [id number] 2.16.84 [id number] 1955 Unknown [id number] 2.16.84 [id number] 1955 Unknown [id number] 2.16.84 [id number] Unknown [id number] 2.16.8 [id number] Clinical Note 03-10-2021 Note Date & Type [...] authenticated by: EDMOND CAAL Date: 2021-03-10 13:48 [facility] Clinical Note 09-04-2020 Note Date & [...] Recovery Room in good condition. cc:Dr. Kaufman. [facility] Signed and Approved by: DR HAYES BOLDEN . 09/06/2020 08:06:00 [facility] Clinical Note 07-16-2020 Note Date & [...] live, trivalent - Not Given Patient Refuses [facility] Comment on above: Result Comment: Elec tronically [...] by: ALLEY ALLEN Date: 2020-07-12 13:58 [facility] Summary Purpose Family History No Family History Records FoundNo Family History Records FoundNo Family History Records Found Advance Directives No Advanced Directives Records FoundNo Advanced Directives Records FoundNo Advanced Directives Records Found Additional Source Comments INFORMATION SOURCE (unrecogn ized section and content) DATE CREATED AUTHOR 10/03/2020 [place] [facility] DATE CREATED AUTHOR AUTHOR'S ORGANIZ ATION 07/12/2021 [facility] DATE CREATED AUTHOR AUTHOR'S ORGANIZ ATION 10/05/2023 [facility] FOR RECORDS PERTAINING TO PATIENTS [...] BE BASED ON THE PRIMARY CLINICAL RECORDS. [facility]. provides no warranty or guarantee of the accuracy or completeness of information in this document.
[2023-10-12 10:47] LABS: Basophils Percent Auto 0.5 % (0.2-2.0); Eosinophils Absolute Auto 0.1 10^3/uL (0.0-0.7); Eosinophils Percent Auto 1.1 % (0.9-7.0); Hematocrit 38.4 % (36.0-48.0); Hemoglobin 12.5 g/dL (12.0-16.0); Immature Granulocytes Abs Auto 0.01 10^3/uL (0.00-0.03); Immature Granulocytes Pct Auto 0.2 % (0.0-0.5); Lymphocytes Absolute Auto 2.4 10^3/uL (1.2-3.8); Lymphocytes Percent Auto 37.5 % (20.5-60.0); Mean Corpuscular HGB Conc 32.6 g/dL (29.9-35.2); Mean Corpuscular Hemoglobin 30.5 pg (26.7-34.0); Mean Corpuscular Volume 93.7 fL (81.0-99.0); Mean Platelet Volume 11.1 fL (9.5-13.5); Monocytes Absolute Auto 0.6 10^3/uL (0.3-0.8); Monocytes Percent Auto 9.7 % (1.7-12.0); Neutrophils Absolute Auto 3.3 10^3/uL (1.4-6.5); Platelet Count 239 10^3/uL (150-450); Red Cell Distribution Width 12.4 % (11.0-15.0); White Blood Count 6.4 10^3/uL (4.0-11.0)
[2023-10-12 11:00] LABS: Alanine Aminotransferase 26 U/L (14-59); Albumin Globulin Ratio 1.3; Albumin Level 3.7 g/dL (3.4-5.0); Alkaline Phosphatase 73 U/L (46-116); Amylase 42 U/L (25-115); Anion Gap 12.7; Aspartate Amino Transferase 20 U/L (15-37); BUN Creatinine Ratio 22.9; Bilirubin Total 0.3 mg/dL (0.2-1.0); Calcium 8.9 mg/dL (8.5-10.1); Carbon Dioxide 27.6 mmol/L (21.0-32.0); Chloride 104 mmol/L (98-107); Estimated GFR (African America >60 (>=60); Estimated GFR (Non-African Ame >60 (>=60); Globulin 2.8 g/dL; Glucose 89 mg/dL (74-106); Potassium 4.3 mmol/L (3.5-5.1); Sodium 140 mmol/L (136-145); Total Protein 6.5 g/dL (6.4-8.2)
[2023-10-12 15:25] LABS: C. Difficile PCR NEGATIVE (NEGATIVE)
== END 2023-10-12 10:18 | disposition home or self-care (01) ==
LOC: LAB 10:20
PROVIDERS: PCP Family Medicine; Visit Provider Family Medicine
DX: K52.9 Noninfective gastroenteritis and colitis, unspecified (principal)
CPT/HCPCS: 36415; 80053; 82150; 83690; 85025; 87045; 87046; 87427; 87493

== ENCOUNTER 2023-10-28 13:22 | Outpatient (OUT) | payer MEDICARE, SELFPAY ==
--- NOTE | 2023-10-28 13:24 | MM_ITS ---
Patient Name: MARY JO ROBLES MR#: [id number] : 1955 Exam Date: 10/28/2023 Ordering Doctor: DR Merrill Kaufman . RADIOLOGY REPORT PROCEDURE: MM TOMOSYNTHESIS SCREENING BI COMPARISON: MM TOMOSYNTHESIS SCREENING BI, 09/25/2022. MG MAMM SCREEN 3D TERA CAD, 07/04/2021. MG MAMM SCREEN 3D TERA CAD, 06/19/2020. MAMMO TERA SCREEN, 09/23/2016. INDICATIONS: Screening Calculator Name NCI Breast Cancer Risk Assessment Tool 5 Year Breast Cancer Risk 1.40% Lifetime Breast Cancer Risk 4.30% Personal Breast Cancer No Personal Ovarian Cancer No Treatments None Family Cancers Mother with colon cancer at age 72. LOCATION: [facility] BREAST COMPOSITION: The breasts are almost entirely fatty. FINDINGS: DIAGNOSTIC CATEGORY 1--NEGATIVE. RIGHT BREAST: No significant suspicious finding. No significant change has occurred. LEFT BREAST: No significant suspicious finding. No significant change has occurred. RECOMMENDATIONS: ROUTINE MAMMOGRAM AND CLINICAL EVALUATION IN 12 MONTHS. PLEASE NOTE: A NORMAL MAMMOGRAM DOES NOT EXCLUDE THE POSSIBILITY OF BREAST CANCER. A CLINICALLY SUSPICIOUS PALPABLE LUMP SHOULD BE BIOPSIED. Dictated by: Suhas Holdne M.D. on 10/29/2023 at 15:02 Approved by: Suhas Holden M.D. on 10/29/2023 at 16:01
== END 2023-10-28 13:23 | disposition home or self-care (01) ==
LOC: MAMMO 13:22
PROVIDERS: PCP Family Medicine; Visit Provider Family Medicine
DX: Z12.31 Encounter for screening mammogram for malignant neoplasm of breast (principal); Z80.0 Family history of malignant neoplasm of digestive organs
CPT/HCPCS: 77063; 77067

== ENCOUNTER 2023-11-09 07:59 | Outpatient (OUT) | payer MEDICARE, SELFPAY ==
--- NOTE | 2023-11-09 | FL_ITS ---
The [address] [address] Patient Name: MARY JO ROBLES MRN: [id number] date: 1955 Sex: F Assigned Patient Location: OR Current Patient Location: OR Accession/Order Number: [id number] Exam Date: 11/09/2023 08:03 Report Date: 11/09/2023 09:09 At the request of: KATELYN YOON Procedure: FL cineradiography PROCEDURE: FL upper GI w air, FL cineradiography COMPARISON: None. FLUORO DOSE: 1 minute and 20 seconds of fluoroscopy. 5 images HISTORY: GERD, K21.9 TECHNIQUE: An air contrast upper gastrointestinal series was performed in the usual manner. Standard level fluoroscopic mode of operation utilized. FINDINGS: ESOPHAGUS:Tertiary nonpropulsive contractions when the patient is in supine positioning. Otherwise normal STOMACH: Normal. No obstruction, mass, or ulceration. Normal motility. DUODENUM:Normal. No ulceration or diverticulum. OTHER: Extensive left upper quadrant calcifications likely prior granulomatous infection of the spleen. Moderate degenerative changes of the spine FL/FL cineradiography IMPRESSION: Tertiary nonpropulsive contractions of the esophagus with the patient is in supine position, otherwise normal upper GI Electronically authenticated by: EDMOND CAAL Date: 11/09/2023 09:09
--- NOTE | 2023-11-09 | FL_ITS ---
The [address] [address] Patient Name: MARY JO ROBLES MRN: [id number] date: 1955 Sex: F [place]igned Patient Location: [place] Current Patient Location: [place] Accession/Order Number: [id number] Exam Date: 11/09/2023 08:03 Report Date: 11/09/2023 09:09 At the request of: KATELYN YOON Procedure: FL upper GI w air PROCEDURE: FL upper GI w air, FL cineradiography COMPARISON: None. FLUORO DOSE: 1 minute and 20 seconds of fluoroscopy. 5 images HISTORY: GERD, K21.9 TECHNIQUE: An air contrast upper gastrointestinal series was performed in the usual manner. Standard level fluoroscopic mode of operation utilized. FINDINGS: ESOPHAGUS:Tertiary nonpropulsive contractions when the patient is in supine positioning. Otherwise normal STOMACH: Normal. No obstruction, mass, or ulceration. Normal motility. DUODENUM:Normal. No ulceration or diverticulum. OTHER: Extensive left upper quadrant calcifications likely prior granulomatous infection of the spleen. Moderate degenerative changes of the spine FL/FL upper GI w air IMPRESSION: Tertiary nonpropulsive contractions of the esophagus with the patient is in supine position, otherwise normal upper GI Electronically authenticated by: EDMOND CAAL Date: 11/09/2023 09:09
--- OUTSIDE RECORDS SUMMARY | 2023-11-09 08:19 | XMS_ITS | CCD ---
Author Organization [facility] Care Team Providers Care Zone Supervisor Firearms Name Role Phone ALEJANDRO, DR ALLEY Beasley [...] ZEPEDA Primary Care Unavailable WEST, DR EDMOND Humprhies Consulting Unavailable NILL, Hayes Beasley Attending Unavailable Katelyn Yoon Referring Unavailable MD Katelyn Yoon Primary Care Provider [phone] DO Jas Kelly Attending Provider Katelyn Yoon Primary Care Unavailable Jas Kelly Attending Unavailable Jas Kelly Admitting Unavailable Allergies Allergy Classification Reported Allergen(s) Allergy Type Date of Onset Reaction(s) Facility (1 source) levoFLOXacin; Translations: [Levaquin] Drug Allergy [facility] Repository Problems Active Problems Problem Classification Problem Date [...] MG MAMM SCREEN 3D TERA CAD Patient: MARY JO ROBLES Exam Date: 07/04/2021 : 1955 Gender:F Ordering : DR KATELYN YOON . Admission #: [id number] Family : Order #: [id number] CLICK HERE TO VIEW EXAM RADIOLOGY REPORT [...] colon cancer at age 70. LOCATION: [facility] BREAST COMPOSITION: Almost entirely fatty. FINDINGS: [...] Caal MD on 07/04/2021 at 15:03 Normal [facility] Covid-19 PCR (CVDTBH)on 08-22 SARS-CoV-2 (COVID-19) RNA JESSENIA+probe Ql (Unsp spec) Not detected Normal NOT DETECTED [facility] Comment on above: Result Comment: This test is not yet approved or cleared by the [place] FDA. When there are no FDA-approved or cleared tests available, and other criteria are met, FDA can make tests available under an emergency access mechanism called an Emergency Use Authorization (EUA). The EUA for this test is supported by the Plastic [employer] C[employer] of Health and Human Service's (HHS's) declaration [...] SARS-CoV-2. Performed By: #### C VDTBH #### [facility] [address] [place], [place] [id number] Josef Solano BNPon 08-22-2020 Natriuretic peptide B (Bld) [Mass/Vol] 168.0 pg/mL Normal <=900.0 [facility] Comment on above: Performed By: #### B VISUAL DEVELOPER, CMP #### [facility] [address] [place], [place] [id number] Josef Solano CBC AUTO DIFFon 08-22-2020 BASO # 0.0 103/ul Normal 0.0-0.1 [facility] Comment on above: Performed By: #### C BC ####[facility] [address] [place] [id number] Solano Basophils/100 WBC (Bld) 0.6 % Normal 0.2-2.0 [facility] Comment on above: Performed By: #### C BC ####[facility] [address] [place] [address] Xiomara EO # 0.1 103/ul Normal 0.0-0.7 [facility] Comment on above: Performed By: #### C BC ####[facility] [address] [place] [address] Xiomara Eosinophils/100 WBC (Bld) 0.9 % Normal 0.9-7.0 [facility] Comment on above: Performed By: #### C BC ####[facility] [address] [place] [address] Xiomara Erythrocyte distribution width (RBC) [Ratio] 12.7 % Normal 11.0-15.0 [facility] Comment on above: Performed By: #### C BC ####[facility] [address] [place] [address] Xiomara Hematocrit (Bld) [Volume fraction] 40.3 % Normal 36.0-48.0 [facility] Comment on above: Performed By: #### C BC ####[facility] [address] [place] [address] Xiomara Hemoglobin (Bld) [Mass/Vol] 12.9 g/dL Normal 12.0-16.0 [facility] Comment on above: Performed By: #### C BC ####[facility] [address] [place] [address] Xiomara IG # 0.01 10e3/ul Normal 0.00-0.03 [facility] Comment on above: Performed By: #### C BC ####[facility] [address] [place] [address] Xiomara IG % 0.1 % Normal 0.0-0.5 [facility] Comment on above: Performed By: #### C BC ####[facility] [address] [place] [address] Xiomara LYMPH # 2.4 103/ul Normal 1.2-3.8 [facility] Comment on above: Performed By: #### C BC ####[facility] [address] [place] [address] Xiomara Lymphocytes/100 WBC (Bld) 34.5 % Normal 20.5-60.0 [facility] Comment on above: Performed By: #### C BC ####[facility] [address] [place] [address] [place] MANUAL DIFF REQ NO Normal [facility] Comment on above: Performed By: #### C BC ####[facility] [address] [place] [address] Xiomara MCH (RBC) [Entitic mass] 30.0 pg Normal 26.7-34.0 [facility] Comment on above: Performed By: #### C BC ####[facility] [address] [place] [address] Xiomara MCHC (RBC) [Mass/Vol] 32.0 g/dL Normal 29.9-35.2 [facility] Comment on above: Performed By: #### C BC ####[facility] [address] [place] [address] Xiomara MCV (RBC) [Entitic vol] 93.7 fL Normal 81.0-99.0 [facility] Comment on above: Performed By: #### C BC ####[facility] [address] [place] [address] Xiomara MONO # 0.7 103/ul Normal 0.3-0.8 [facility] Comment on above: Performed By: #### C BC ####[facility] [address] [place] [address] Xiomara Monocytes/100 WBC (Bld) 9.3 % Normal 1.7-12.0 [facility] Comment on above: Performed By: #### C BC ####[facility] [address] [place] [address] Xiomara NEUT # 3.8 103/ul Normal 1.4-6.5 [facility] Comment on above: Performed By: #### C BC ####[facility] [address] [place] [address] Xiomara Neutrophils/100 WBC (Bld) 54.6 % Normal 43.0-75.0 [facility] Comment on above: Performed By: #### C BC ####[facility] [address] [place] [address]Josef Solano Platelet mean volume (Bld) [Entitic vol] 11.0 fL Normal 9.5-13.5 [facility] Comment on above: Performed By: #### C BC ####[facility] [address] [place] [address]Josef Ibarraen PLT 211 103/ul Normal 150-450 [facility] Comment on above: Performed By: #### C BC ####[facility] [address] [place] [address]Josef Solano RBC 4.30 106/ul Normal 4.20-5.40 [facility] Comment on above: Performed By: #### C BC ####[facility] [address] [place] [address]Josef Ibarraen WBC 7.0 103/ul Normal 4.0-11.0 [facility] Comment on above: Performed By: #### C BC ####[facility] [address] [place] [address] Xiomara D-DIMERon 08-22-2020 D-DIMER 0.25 mg/L FEU Normal 0.19-0.50 [facility] Comment on above: Performed By: #### D DIM #### [facility] [address] Solano D-DIMER COMMENTS SEE BELOW Normal [facility] Comment on above: Result Comment: [...] hospitalization. Performed By: #### D DIM #### [facility] [address] [place], [place] [id number] Josef Xiomara PROF 14(COMP METB)on 021 Albumin [Mass/Vol] 3.8 g/dL Normal 3.5-5.0 [facility] Comment on above: Performed By: #### B VISUAL DEVELOPER, CMP #### [facility] [address] [place], [place] [id number] Josef Xiomara Albumin/Globulin [Mass ratio] 1.2 {ratio} Normal [facility] Comment on above: Performed By: #### B VISUAL DEVELOPER, CMP #### [facility] [address] [place] [address] Josef Xiomara ALP [Catalytic activity/Vol] 81 U/L Normal 38-126 [facility] Comment on above: Performed By: #### B VISUAL DEVELOPER, CMP #### [facility] [address] [place] [address] Josef Xiomara ALT [Catalytic activity/Vol] 22 U/L Normal 9-52 [facility] Comment on above: Performed By: #### B VISUAL DEVELOPER, CMP #### [facility] [address] [place], [place] [id number] Josef Xiomara Anion gap [Moles/Vol] 11.9 mmol/L Normal [facility] Comment on above: Performed By: #### B VISUAL DEVELOPER, CMP #### [facility] [address] [place] [address] Josef Xiomara AST [Catalytic activity/Vol] 18 U/L Normal 14-36 [facility] Comment on above: Performed By: #### B VISUAL DEVELOPER, CMP #### [facility] [address] [place], [place] [address] Josef Xiomara Bilirubin [Mass/Vol] 0.4 mg/dL Normal 0.2-1.3 [facility] Comment on above: Performed By: #### B VISUAL DEVELOPER, CMP #### [facility] [address] [place], [place] [address] Josef Xiomara Calcium [Mass/Vol] 8.7 mg/dL Normal 8.4-10.2 [facility] Comment on above: Performed By: #### B VISUAL DEVELOPER, CMP #### [facility] [address] [id number] Josef Xiomara Chloride [Moles/Vol] 104 mmol/L Normal 98-107 [facility] Comment on above: Performed By: #### B VISUAL DEVELOPER, CMP #### [facility] [address] [address] Josef Xiomara CO2 [Moles/Vol] 29.1 mmol/L Normal 22.0-30.0 [facility] Comment on above: Performed By: #### B VISUAL DEVELOPER, CMP #### [facility] [address] [place] [address] Josef Xiomara Creatinine [Mass/Vol] 0.59 mg/dL Normal 0.52-1.04 [facility] Comment on above: Performed By: #### B VISUAL DEVELOPER, CMP #### [facility] [address] [place] [address] Josef Xiomara EGFR-AF FINNISH >60 Normal >=60 [facility] Comment on above: Performed By: #### B VISUAL DEVELOPER, CMP #### [facility] [address] [place] [address] Josef Xiomara EGFR-NON AF FINNISH >60 Normal >=60 [facility] Comment on above: Performed By: #### B VISUAL DEVELOPER, CMP #### [facility] [address] [place] [address] Josef Xiomara Globulin (S) [Mass/Vol] 3.3 g/dL Normal [facility] Comment on above: Performed By: #### B VISUAL DEVELOPER, CMP #### [facility] [address] [place] [address] Josef Xiomara Glucose [Mass/Vol] 72 mg/dL Critically low 74-106 [facility] Comment on above: Performed By: #### B VISUAL DEVELOPER, CMP #### [facility] [address] [place] [address] Josef Xiomara Potassium [Moles/Vol] 4.0 mmol/L Normal 3.4-5.0 [facility] Comment on above: Performed By: #### B VISUAL DEVELOPER, CMP #### [facility] [address] [place] [address] Josef Xiomara Protein [Mass/Vol] 7.1 g/dL Normal 6.1-8.2 [facility] Comment on above: Performed By: #### B VISUAL DEVELOPER, CMP #### [facility] [address] [place] [address] Josef Solano Sodium [Moles/Vol] 141 mmol/L Normal 137-145 [facility] Comment on above: Performed By: #### B VISUAL DEVELOPER, CMP #### [facility] [address] [place] [address] Josef Xiomara Urea nitrogen [Mass/Vol] 20.0 mg/dL Critically high 7.0-17.0 [facility] Comment on above: Performed By: #### B VISUAL DEVELOPER, CMP #### [facility] [address] [place] [address] Josef Xiomara Urea nitrogen/Creatinine [Mass ratio] 33.9 mg/mg Normal [facility] Comment on above: Performed By: #### B VISUAL DEVELOPER, CMP #### [facility] [address] [place] [address] Josef Solano CREATININEon 07-25-2020 Creatinine [Mass/Vol] 0.63 mg/dL Normal 0.52-1.04 [facility] Comment on above: Performed By: #### C ZEYAD #### [facility] [address] [place] [address] Josef Xiomara EGFR-AF FINNISH >60 Normal >=60 [facility] Comment on above: Performed By: #### C ZEYAD #### [facility] [address] [place] [address] Josef Xiomara EGFR-NON AF FINNISH >60 Normal >=60 [facility] Comment on above: Performed By: #### C ZEYAD #### [facility] [address] [place] [address] PELVIS W CONon 07-25-2020 CT PELVIS W CON EXAMINATION: CT PELVIS W CON HISTORY: Left lower quadrant pain [...] ALLEN Date: 2020-07-25 14:11 Normal [facility] Encounters Encounter Date Encounter Type Care Provider Facility Start: 11-16-2023 ambulatory Hayes PEÑA Facility [facility] Start: 09-14-2023 End: 09-14-2023 ambulatory MD Katelyn Yoon Work Phone: [facility] Work Phone: Start: 09-14-2023 End: 09-14-2023 Discharged Recurring MD Katelyn Yoon Work Phone: [facility] [place] Start: 07-04-2021 End: 07-05-[address] KATELYN YOON Facility:[facility] Start: 03-10-2021 End: 03-11-[address] KATELYN YOON Facility:[facility] Start: 09-09-2020 Encounter for preprocedural laboratory examination DR HAYES PEÑA [facility] Start: 09-04-2020 End: 09-04-[address] HAYES PEÑA Facility:[facility] Start: 08-31-2020 End: 09-01-[address] HAYES PEÑA Facility:[facility] Start: 08-31-2020 End: 09-01-2020 Encounter for preprocedural laboratory examination DR HAYES PEÑA Facility:[facility] Start: 08-30-2020 Encounter for preprocedural cardiovascular examination DR HAYES PEÑA [facility] Start: 08-22-2020 End: 08-23-[address] HAYES PEÑA Facility:[facility] Start: 07-25-2020 End: 07-26-[address] HAYES PEÑA Facility:[facility] Start: 07-12-2020 End: 07-12-[address] ALLEY ALLEN Facility:[facility] Payers Date Payer Category Payer Self-pay [id number] 2023 Private Health Insurance [id number] 1961 Medicare [id number] 1961 Medicare [id number] 1955 Unknown [id number] 2.16.84 [id number] 1955 Unknown [id number] 2.16.84 [id number] 1955 Unknown [id number] 2.16.84 [id number] 1955 Unknown [id number] 2.16.84 [id number] 1955 Unknown [id number] 2.16.84 [id number] 1955 Unknown [id number] 2.16.84 [id number] 1955 Unknown [id number] 2.16.84 [id number] 1955 Unknown [id number] 2.16.8 [id number] Medicare Medicare [id number] Unknown [id number] 2.16.8 [id number] Social History Date Type Detail Facility Tobacco smoking stat [facility] Unknown if ever smoked [facility] Work Phone: Start: 1955 Sex Assigned At Female F [facility] Clinical Note 03-10-2021 Note Date & Type [...] authenticated by: EDMOND CAAL Date: 2021-03-10 13:48 [facility] Clinical Note 09-04-2020 Note Date & [...] the Recovery Room in good condition. cc:Dr. Yoon. [facility] Signed and Approved by: DR HAYES PEÑA . 09/06/2020 08:06:00 [facility] Clinical Note 07-12-2020 Note Date & Type [...] by: ALLEY ALLEN Date: 2020-07-12 13:58 [facility] Evaluation note Note Date & Type Note Facility Evaluation note [facility] Summary Purpose Family History No Family History Records FoundNo Family History Records FoundNo Family History Records Found Advance Directives No Advanced Directives Records Found Advance Directive Response Recorded Date/ Time Advance Directives No December 7:43pm Chief Complaint and Reason for Visit Chief Complaint Sciatica Additional Source Comments INFORMATION SOURCE (unrecogn ized section and content) DATE CREATED AUTHOR 07/12/2021 [facility] DATE CREATED AUTHOR AUTHOR'S ORGANIZ ATION 11/05/2023 [facility] DATE CREATED AUTHOR AUTHOR'S ORGANIZ ATION 11/07/2023 [facility] Care Teams (unrecognized sec tion and content) Team Status: Active Member Role Status Dates Katelyn Yoon MD Primary Care Provider Active Team Status: Inactive Member Role Status Dates Katelyn Yoon MD Primary Care Provider Active Start: September 14, 2023 End: September 14, 2023 Jas Kelly DO Attending Provider Active S tart: September 14, 2023 End: September 14, 2023 Goals (unrecognized section and content) Goals may be documented in a n alternate section FOR RECORDS PERTAINING TO PATIENTS WHO ARE [...] BE BASED ON THE PRIMARY CLINICAL RECORDS. [facility]. provides no warranty or guarantee of the accuracy or completeness of information in this document.
== END 2023-11-09 08:00 | disposition home or self-care (01) ==
LOC: FL 07:59
PROVIDERS: PCP Family Medicine; Visit Provider Family Medicine
DX: K21.9 Gastro-esophageal reflux disease without esophagitis (principal)
CPT/HCPCS: 74246; 76120

== ENCOUNTER 2023-11-22 11:50 | Outpatient (OUT) | payer MEDICARE, SELFPAY ==
--- OUTSIDE RECORDS SUMMARY | 2023-11-22 12:08 | XMS_ITS | CCD ---
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 Name Role Phone DR ALLEY ALLEN Consulting [...] Unavailable WEST, DR EDMOND Humphries Consulting Unavailable MD Katelyn Kaufman Primary Care Provider DO Jas Kelly Attending Provider Katelyn Kaufman Primary Care Unavailable Jas Kelly Attending Unavailable Jas Kelly Admitting Unavailable Katelyn Kaufman Primary Care Physician [phone] Hayes PEÑA Attending Unavailable Katelyn Kaufman Referring Unavailable Allergies Allergy Classification Reported Allergen(s) Allergy Type Date of Onset Reaction(s) Facility (2 sources) levoFLOXacin; Translations: [levofloxacin] Drug Allergy Muscle pain (finding) [facility] [place] Medications Current Medications Medication Drug Class(es) Dates Sig (Normalized) Sig (Original) hyoscyamine sulfate 0.125 mg oral tablet (1 source) Start: 11-03-2023 take 1 tablet by mouth every four hours as needed for pain hyoscyamine 0.125 mg oral Tab 0.125 mg = 1 tab(s), Oral, q4hr, PRN abdominal pain, Refills(s) 0 Start Date: 11/03/23 Status: Ordered ondansetron 4 mg disintegrating oral tablet (1 source) Serotonin-3 Receptor Antagonist Start: 11-03-2023 take 1 tablet by mouth three times daily as needed for nausea ondansetron 4 mg Dis Tab 4 mg = 1 tab(s), Oral, TID, PRN Nausea/Vomiting, Refills(s) 0 Start Date: 11/03/23 Status: Ordered pantoprazole 40 mg delayed release oral tablet (1 source) Proton Pump Inhibitor Start: 11-03-2023 take 1 tablet by mouth once daily Protonix 40 mg Tab-DR 40 mg = 1 tab(s), Oral, Daily, Refills(s) 0 Start Date: 11/03/23 Status: Ordered Problems Active Problems Problem Classification Problem Date Documented Date Episodic/Chronic Abdominal pain (8 sources) Left lower quadrant pain; Translations: [Periumbilical pain] Onset: 07-25-2020 Episodic Diverticulosis and diverticulitis (1 source) Diverticulosis of sigmoid colon 04-26-2019 Chronic Esophageal disorders (2 sources) Gastroesophageal reflux disease without esophagitis; Translations: [Gastro-esophageal reflux disease without esophagitis] Onset: 11-16-2023 Chronic Osteoporosis (1 source) Osteoporosis 11-03-2023 Chronic Other and unspecified benign neoplasm (1 source) Lipoma of skin 07-15-2020 Episodic Other nutritional; endocrine; and metabolic disorders (1 source) Obesity, unspecified; Translations: [OBESITY UNSPECIFIED] Onset: 09-11-2020 Chronic Other nutritional; endocrine; and metabolic disorders (1 source) Body mass index (BMI) 31.0-31.9, adult; Translations: [BODY MASS INDEX BMI 31.0-31.9 ADULT] Onset: 09-11-2020 Chronic Other nutritional; endocrine; and metabolic disorders (1 source) Overweight 11-16-2023 Episodic Other nutritional; endocrine; and metabolic disorders (1 source) Overweight in adulthood with body mass index of 25 or more but less than 30 11-16-2023 Episodic Other screening for suspected conditions (not mental [...] [CONTACT W/AND (SUSP) EXPOS COVID-19] Onset: 09-09-2020 Unclassified (1 source) Irreducible left inguinal hernia 08-04-2020 Unclassified (1 source) Left femoral hernia 09-14-2020 Urinary tract infections (1 source) Acute cystitis 11-03-2023 Episodic Past or Other Problems Problem Classification Problem Date Documented Da te Episodic/Chronic Abdominal hernia (5 sources) Unilateral inguinal hernia, without obstruction or gangrene, not specified as recurrent; Translations: [Unilateral femoral hernia, with obstruction, without gangrene, not specified as recurrent] Onset: 09-04-2020 Episodic E Codes: Natural/environment (1 source) Bitten [...] right forearm, initial encounter] Onset: 07-16-2020 Episodic Unclassified (1 source) Patient encounter status 11-03-2023 Unclassified (1 source) Severe acute respiratory syndrome coronavirus 2 detected 11-03-2023 Results Test Name Value Interpretation Reference Range Facil ity Ambulatory Visit Summaryon 0 11-16-2023 Ambulatory Visit Summary Ambulatory Visit Summary MARY JO ROBLES :1955 Visit Date:11/16/2023 Ambulatory Visit Instructions Your Care Team Attending Physician - Hayes PEÑA MD Primary Care Physician - Katelyn Kaufman MD Referring Physician - Katelyn Kaufman MD This Is Your Medications List Contact prescribing physician if questions or concerns hyoscyamine (hyoscyamine 0.125 mg oral Tab) ondansetron (ondansetron 4 mg Dis Tab) pantoprazole (Protonix 40 mg Tab-DR) Procedures Performed Repair of left inguinal hernia (09/04/2020), Colonoscopy and biopsy of colon (04/21/2019), Colonoscopy normal (02/23/2004), Bilateral replacement of knee joints, Release of carpal tunnel for median nerve decompression, Tonsillectomy, primary or secondary; younger than age 12, Total abdominal hysterectomy. Discharge Vitals Heart Rate (Peripheral) 70 Respiratory Rate 16 Blood Pressure 136/76 Height 154.9 cm Height 61 in Weight 68.58 kg Weight 150.876 lb BMI 28.58 Medications What How Much When Instructions Unchanged hyoscyamine (hyoscyamine 0.125 mg oral Tab) 1 Tablets By Mouth Every 4 hours as needed for abdominal pain Contact prescribing physician if questions or concerns Unchanged ondansetron (ondansetron 4 mg Dis Tab) 1 Tablets By Mouth 3 times a day as needed for Nausea/Vomiting Contact prescribing physician if questions or concerns Unchanged pantoprazole (Protonix 40 mg Tab-DR) 1 Tablets By Mouth Every day Contact prescribing physician if questions or concerns Allergies Levaquin (Myalgia) Problems Ongoing - Any problem that you are currently receiving treatment for. BMI 28.0-28.9,adult Femoral hernia of left side GERD (gastroesophageal reflux disease) Irreducible left inguinal hernia Lipoma of skin Osteoporosis Overweight Sigmoid diverticulosis Historical - Any problem that you are no longer receiving treatment for. COVID-19 virus detected Cystitis, acute Encounter for screening colonoscopy Patient Survey You may receive a survey via text or e-mail asking about your office visit. Please share your experience with us by completing your survey. We appreciate your feedback and thank you for choosing us for your care. Normal [facility] MG MAMM SCREEN 3D TERA CADon 07-04-2021 MG MAMM SCREEN 3D TERA CAD Patient: MARY JO ROBLES Exam Date: 07/04/2021 : 1955 Gender:F Ordering : DR KATELYN KAUFMAN . Admission #: [id number] Family : Order #: [id number] CLICK HERE TO VIEW EXAM RADIOLOGY REPORT [...] with colon cancer at age 70. LOCATION: [facility] BREAST COMPOSITION: Almost entirely fatty. FINDINGS: [...] Caal MD on 07/04/2021 at 15:03 Normal [facility] Covid-19 PCR (CVDTBH)on 08-22 SARS-CoV-2 (COVID-19) RNA JESSENIA+probe Ql (Unsp spec) Not detected Normal NOT DETECTED [facility] Comment on above: Result Comment: This test is not yet approved or cleared by the [place] FDA. When there are no FDA-approved or cleared tests available, and other criteria are met, FDA can make tests available under an emergency access mechanism called an Emergency Use Authorization (EUA). The EUA for this test is supported by the [place] of Health and Human Service's (HHS's) declaration [...] SARS-CoV-2. Performed By: #### C VDTBH #### [facility] [address] [place] [id number] Josef Solano BNPon 08-22-2020 Natriuretic peptide B (Bld) [Mass/Vol] 168.0 pg/mL Normal <=900.0 [facility] Comment on above: Performed By: #### B DELIVERY SALES WORKER, CMP #### [facility] [address] [place] [address] Josef Xiomara CBC AUTO DIFFon 08-22-2020 BASO # 0.0 103/ul Normal 0.0-0.1 [facility] Comment on above: Performed By: #### C BC ####[facility] [address] [place] [id number] Solano Basophils/100 WBC (Bld) 0.6 % Normal 0.2-2.0 [facility] Comment on above: Performed By: #### C BC ####[facility] [address] [place] [id number] Solano EO # 0.1 103/ul Normal 0.0-0.7 [facility] Comment on above: Performed By: #### C BC ####[facility] [address] [place] [address] Xiomara Eosinophils/100 WBC (Bld) 0.9 % Normal 0.9-7.0 [facility] Comment on above: Performed By: #### C BC ####[facility] [address] [place] [address] Xiomara Erythrocyte distribution width (RBC) [Ratio] 12.7 % Normal 11.0-15.0 [facility] Comment on above: Performed By: #### C BC ####[facility] [address] [place] [address] Xiomara Hematocrit (Bld) [Volume fraction] 40.3 % Normal 36.0-48.0 [facility] Comment on above: Performed By: #### C BC ####[facility] [address] [place] [address] Xiomara Hemoglobin (Bld) [Mass/Vol] 12.9 g/dL Normal 12.0-16.0 [facility] Comment on above: Performed By: #### C BC ####[facility] [address] [place] [address] Xiomara IG # 0.01 10e3/ul Normal 0.00-0.03 [facility] Comment on above: Performed By: #### C BC ####[facility] [address] [place] [address] Xiomara IG % 0.1 % Normal 0.0-0.5 [facility] Comment on above: Performed By: #### C BC ####[facility] [address] [place] [address] Xiomara LYMPH # 2.4 103/ul Normal 1.2-3.8 [facility] Comment on above: Performed By: #### C BC ####[facility] [address] [place] [address] Xiomara Lymphocytes/100 WBC (Bld) 34.5 % Normal 20.5-60.0 [facility] Comment on above: Performed By: #### C BC ####[facility] [address] Xiom[place] MANUAL DIFF REQ NO Normal [facility] Comment on above: Performed By: #### C BC ####[facility] [address] Xiomara MCH (RBC) [Entitic mass] 30.0 pg Normal 26.7-34.0 [facility] Comment on above: Performed By: #### C BC ####[facility] [address] [place] [address] Xiomara MCHC (RBC) [Mass/Vol] 32.0 g/dL Normal 29.9-35.2 [facility] Comment on above: Performed By: #### C BC ####[facility] [address] [place] [address] Xiomara MCV (RBC) [Entitic vol] 93.7 fL Normal 81.0-99.0 [facility] Comment on above: Performed By: #### C BC ####[facility] [address] [place] [address] Xiomara MONO # 0.7 103/ul Normal 0.3-0.8 [facility] Comment on above: Performed By: #### C BC ####[facility] [address] [place] [address] Xiomara Monocytes/100 WBC (Bld) 9.3 % Normal 1.7-12.0 [facility] Comment on above: Performed By: #### C BC ####[facility] [address] [place] [address] Xiomara NEUT # 3.8 103/ul Normal 1.4-6.5 [facility] Comment on above: Performed By: #### C BC ####[facility] [address] [place] [address] Xiomara Neutrophils/100 WBC (Bld) 54.6 % Normal 43.0-75.0 [facility] Comment on above: Performed By: #### C BC ####[facility] [address] [place], [place] [address]AxxymyJosef Solano Platelet mean volume (Bld) [Entitic vol] 11.0 fL Normal 9.5-13.5 [facility] Comment on above: Performed By: #### C BC ####[facility] [address] [place] [address]Josef Solano PLT 211 103/ul Normal 150-450 [facility] Comment on above: Performed By: #### C BC ####[facility] [address] [place] [address]Gerbrandt Solano RBC 4.30 106/ul Normal 4.20-5.40 [facility] Comment on above: Performed By: #### C BC ####[facility] [address] [place] [address]Gerbrandt Solano WBC 7.0 103/ul Normal 4.0-11.0 [facility] Comment on above: Performed By: #### C BC ####[facility] [address] [place], [place] [address]QviogeJosef Solano D-DIMERon 08-22-2020 D-DIMER 0.25 mg/L FEU Normal 0.19-0.50 [facility] Comment on above: Performed By: #### D DIM #### [facility] [address] [place], [place] [address] Josef Solano D-DIMER COMMENTS SEE BELOW Normal [facility] Comment on above: Result Comment: Incr eases [...] hospitalization. Performed By: #### D DIM #### [facility] [address] [place], [place] [address] Josef Xiomara PROF 14(COMP METB)on 021 Albumin [Mass/Vol] 3.8 g/dL Normal 3.5-5.0 [facility] Comment on above: Performed By: #### B DELIVERY SALES WORKER, CMP #### [facility] [address] [place], [place] [address] Josef Xiomara Albumin/Globulin [Mass ratio] 1.2 {ratio} Normal [facility] Comment on above: Performed By: #### B DELIVERY SALES WORKER, CMP #### [facility] [address] [place], [place] [address] Josef Xiomara ALP [Catalytic activity/Vol] 81 U/L Normal 38-126 [facility] Comment on above: Performed By: #### B DELIVERY SALES WORKER, CMP #### [facility] [address] [place], [place] [address] Josef Xiomara ALT [Catalytic activity/Vol] 22 U/L Normal 9-52 [facility] Comment on above: Performed By: #### B DELIVERY SALES WORKER, CMP #### [facility] [address] [place] [address] Josef Xiomara Anion gap [Moles/Vol] 11.9 mmol/L Normal [facility] Comment on above: Performed By: #### B DELIVERY SALES WORKER, CMP #### [facility] [address] [place] [address] Josef Xiomara AST [Catalytic activity/Vol] 18 U/L Normal 14-36 [facility] Comment on above: Performed By: #### B DELIVERY SALES WORKER, CMP #### [facility] [address] [place], [place] [address] Josef Xiomara Bilirubin [Mass/Vol] 0.4 mg/dL Normal 0.2-1.3 [facility] Comment on above: Performed By: #### B DELIVERY SALES WORKER, CMP #### [facility] [address] [place], [place] [address] Josef Xiomara Calcium [Mass/Vol] 8.7 mg/dL Normal 8.4-10.2 [facility] Comment on above: Performed By: #### B DELIVERY SALES WORKER, CMP #### [facility] [address] [place], [place] [address] Josef Xiomara Chloride [Moles/Vol] 104 mmol/L Normal 98-107 [facility] Comment on above: Performed By: #### B DELIVERY SALES WORKER, CMP #### [facility] [address] [place] [address] Josef Xiomara CO2 [Moles/Vol] 29.1 mmol/L Normal 22.0-30.0 [facility] Comment on above: Performed By: #### B DELIVERY SALES WORKER, CMP #### [facility] [address] [place] [address] Josef Xiomara Creatinine [Mass/Vol] 0.59 mg/dL Normal 0.52-1.04 [facility] Comment on above: Performed By: #### B DELIVERY SALES WORKER, CMP #### [facility] [address] [place] [address] Josef Xiomara EGFR-AF MALIAN >60 Normal >=60 [facility] Comment on above: Performed By: #### B DELIVERY SALES WORKER, CMP #### [facility] [address] [place] [address] Josef Xiomara EGFR-NON AF MALIAN >60 Normal >=60 [facility] Comment on above: Performed By: #### B DELIVERY SALES WORKER, CMP #### [facility] [address] [place] [address] Josef Xiomara Globulin (S) [Mass/Vol] 3.3 g/dL Normal [facility] Comment on above: Performed By: #### B DELIVERY SALES WORKER, CMP #### [facility] [address] [place] [address] Josef Xiomara Glucose [Mass/Vol] 72 mg/dL Critically low 74-106 [facility] Comment on above: Performed By: #### B DELIVERY SALES WORKER, CMP #### [facility] [address] [place] [address] Josef Xiomara Potassium [Moles/Vol] 4.0 mmol/L Normal 3.4-5.0 [facility] Comment on above: Performed By: #### B DELIVERY SALES WORKER, CMP #### [facility] [address] [place] [address] Josef Xiomara Protein [Mass/Vol] 7.1 g/dL Normal 6.1-8.2 [facility] Comment on above: Performed By: #### B DELIVERY SALES WORKER, CMP #### [facility] [address] [place] [address] Josef Xiomara Sodium [Moles/Vol] 141 mmol/L Normal 137-145 [facility] Comment on above: Performed By: #### B DELIVERY SALES WORKER, CMP #### [facility] [address] [place] [address] Josef Xiomara Urea nitrogen [Mass/Vol] 20.0 mg/dL Critically high 7.0-17.0 [facility] Comment on above: Performed By: #### B DELIVERY SALES WORKER, CMP #### [facility] [address] [place] [address] Josef Xiomara Urea nitrogen/Creatinine [Mass ratio] 33.9 mg/mg Normal [facility] Comment on above: Performed By: #### B DELIVERY SALES WORKER, CMP #### [facility] [address] [place] [address] Josefbrandt Ibarraen CREATININEon 07-25-2020 Creatinine [Mass/Vol] 0.63 mg/dL Normal 0.52-1.04 [facility] Comment on above: Performed By: #### C ZEYAD #### [facility] [address] [place], [place] [address] Josef Xiomara EGFR-AF MALIAN >60 Normal >=60 [facility] Comment on above: Performed By: #### C ZEYAD #### [facility] [address] [place] [address] Josef Xiomara EGFR-NON AF MALIAN >60 Normal >=60 [facility] Comment on above: Performed By: #### C ZEYAD #### [facility] [address] [place] [address] PELVIS W CONon 07-25-2020 [...] by: ALLEY ALLEN Date: 2020-07-25 14:11 Normal [facility] Vital Signs Date Time Vital Sign Value Performing Clinician Emmanuel bogres 11-16-2023 15:08-0400 Blood Pressure Location Hayes PEÑA [facility] 11-16-2023 15:08-0400 Diastolic blood pressure 76 mm[Hg] Hayes PEÑA [facility] 11-16-2023 15:08-0400 Heart rate 70 /min Hayes PEÑA [facility] 11-16-2023 15:08-0400 Respiratory rate 16 /min Hayes PEÑA [facility] 11-16-2023 15:08-0400 Systolic blood pressure 136 mm[Hg] Hayes PEÑA [facility] Encounters Encounter Date Encounter Type Care Provider Facility Start: 11-16-2023 End: 11-16-2023 ambulatory Hayes PEÑA [facility] Start: 11-16-2023 End: 11-16-2023 Patient encounter procedure Hayes PEÑA [facility] Start: 09-14-2023 End: 09-14-2023 ambulatory MD Katelyn Kaufman Work Phone: [facility] Work Phone: Start: 09-14-2023 End: 09-14-2023 Discharged Recurring MD Katelyn Kaufman Work Phone: [facility] [place] Start: 07-04-2021 End: 07-05-[address] KATELYN KAUFMAN Facility:[facility] Start: 03-10-2021 End: 03-11-[address] KATELYN KAUFMAN Facility:[facility] Start: 09-09-2020 Encounter for preprocedural laboratory examination DR HAYES PEÑA [facility] Start: 09-04-2020 End: 09-04-[address] HAYES PEÑA Facility:[facility] Start: 08-31-2020 End: 09-01-[address] HAYES PEÑA Facility:[facility] Start: 08-31-2020 End: 09-01-2020 Encounter for preprocedural laboratory examination DR HAYES PEÑA Facility:[facility] Start: 08-30-2020 Encounter for preprocedural cardiovascular examination DR HAYES PEÑA [facility] Start: 08-22-2020 End: 08-23-[address] HAYES PEÑA Facility:[facility] Start: 07-25-2020 End: 07-26-[address] HAYES PEÑA Facility:[facility] Start: 07-12-2020 End: 07-12-[address] ALLEY ALLEN Facility:[facility] Procedures Date Procedure Procedure Detail Performing Clinician Start: 09-04-2020 Repair of left ingui nal hernia Hayes PEÑA Start: 04-21-2019 Colonoscopy and biop sy of colon Hayes PEÑA Comment on above: Hyperplastic polyp Start: 02-23-2004 Colonoscopy normal (finding) Hayes PEÑA Bilateral replacemen t of knee joints Hayes PEÑA Decompression of med violetta nerve Hayes PEÑA Tonsillectomy primary/secondary Hayes PEÑA Total abdominal hysterectomy Hayes PEÑA Immunizations Immunization Date Immunization Notes Care Provider Fa adolfo NEGATED: Highlighted row has not occurred!04-12-2019 influenza virus vaccine, live, attenuated, for intranasal use Hayes DURANTPaul [facility] Payers Date Payer Category Payer Self-pay [id number] 2023 Private Health Insurance [id number] 1961 Medicare [id number] 1961 Medicare [id number] 1955 Unknown [id number] 2.16.84 [id number] 1955 Unknown [id number] 2.16.84 [id number] 1955 Unknown [id number] 2.16.84 [id number] 1955 Unknown [id number] 2.16.84 [id number] 1955 Unknown [id number] 2.16.84 [id number] 1955 Unknown [id number] 2.16.84 [id number] 1955 Unknown [id number] 2.16.84 [id number] 1955 Unknown [id number] 2.16.8 [id number] Medicare Medicare [id number] Unknown [id number] 2.16.8 [id number] Social History Date Type Detail Facility Tobacco smoking stat [facility] Unknown if ever smoked [facility] Work Phone: Start: 1955 Sex Assigned At Female [facility] Start: 11-16-2023 Tobacco smoking status Never s moked tobacco (finding) [facility] Tobacco smoking status Never [facility] Sex Assigned At Female [facility] Functional Status Date Assessment Result Facility 11-16-2023 Functional Status N/A [facility] Clinical Note 11-16-2023 Note Date & Type Note Facility 11-16-2023 Note General Surgery Offi ce/Clinic Note Chief Complaint consultation for GERD HPI Staff 67 year old female presents on consultation from Dr. Kaufman for abdominal pain. Reports experiencing intermittent generalized abdominal pain for 2-3 months. Describes pain as burning and on occasion, an ache/soreness. States this started after taking daily NSAID for approximately one month. Verbalized intermittent nausea, primarily in the AM. Reports excessive belching after eating. Denies bowel changes. UGI completed 11/08- unremarkable. Patient taking Protonix 40mg daily for one month which has minimally improved pain. Patient took Carafate for several days but this caused severe constipation so she discontinued this. History of Present Illness 67 yo female with h/o osteoporosis and GERD; referred for 2 month h/o worsening GERD, nausea and burping in am, mid abd ache/burning pain; worse with eating acidic/spicy foods; had been on NSAIDs for several months prior to symptoms, now discontinue them; on Protonix daily with some improvement; abd/pelvic ct scan with sigmoid diverticulosis; recent UGI with tertiary contractions in supine position; placed on Protonix and Carafate; no longer taking Carafate due to constipation; no blood in stools, occasional loose stools; no wt loss; no emesis; no melena; no asa or NSAID use currently; no tobacco use; no fmhx of GI malignancy or IBD. Review of Systems PHQ Score Initial Depression Screen Score: 0 SCORE ROS - Provider Constitutional: no fever, no sweats, no weight loss. Eyes: no glasses, no blurred vision, no visual loss. ENMT: no dentures, no hoarseness, no swallowing difficulties, no hearing loss, no ear infection(s), no nose bleeds. Cardiovascular: normal blood pressure, no chest pain, regular heartbeat, no heart murmur. Respiratory: no shortness of breath, no cough, no asthma, no wheezing. Gastrointestinal: yes nausea, no vomiting, no diarrhea, no constipation, no blood in stool, no change in bowel habits, yes abdominal pain, no hepatitis. Genitourinary: no kidney [...] or noncontributory. Physical Exam Vitals & Measurements HR: 70(Peripheral) RR: 16 BP: 136/76 HT: 61 in HT: 154.9 cm WT: 68.58 kg WT: 150.876 lb BMI: 28.58 HEENT: normal conjunctiva, sclera clear, no scleral icterus, EOM intact, PERRLA, oral mucosa moist without lesions. Neck: trachea midline, no mass, symmetric, no thyromegaly or nodules, no adenopathy Respiratory: lungs CTA, respirations non labored. Cardiovascular: regular rate and rhythm, no murmur, no pedal edema or varicosities. Gastrointestinal: soft, non distended, mild tenderness, epigastrium and mid abd, no peritoneal signs no masses, no palpable hernias, diastasis recti no, no hepatosplenomegaly; normal bs Lymphatic: no cervical adenopathy, no supraclavicular adenopathy. Musculoskeletal: normal gait, digits and nails without infection, nodes, cyanosis, clubbing. Skin: no rashes, no lesions, no ulcers, no subcutaneous nodules, induration. Psychiatric/Neuro: oriented to time, place, person, judgement normal, affect appropriate for age, insight intact, no focal deficits. Tests: , x-rays reviewed, review of old records completed , Discussed surgical options, risks, and possible complications with patient. Assessment/Plan 1. Epigastric pain (R10.13: Epigastric pain) plan EGD under anesthesia, informed consent obtained. 2. Periumbilical pain (R10.33: Periumbilical pain) see # 1 3. GERD (gastroesophageal reflux disease) (K21.9: Gastro-esophageal reflux disease without esophagitis) see # 1 Follow-up No qualifying data available Problem List/Past Medical History Ongoing BMI 28.0-28.9,adult Epigastric pain Femoral hernia of left side GERD (gastroesophageal reflux disease) Irreducible left inguinal hernia Lipoma of skin Osteoporosis Overweight Periumbilical pain Sigmoid diverticulosis Historical COVID-19 virus detected Cystitis, acute Encounter for screening colonoscopy Procedure/Surgical History Repair of left inguinal hernia (09/04/2020), Colonoscopy and biopsy of colon (04/21/2019), Colonoscopy normal (02/23/2004), Bilateral replacement of knee joints, Release of carpal tunnel for median nerve decompression, Tonsillectomy, primary or secondary; younger than age 12, Total abdominal hysterectomy. Medications hyoscyamine 0.125 mg oral Tab, 0.125 mg= 1 tab(s), Oral, q4hr, PRN ondansetron 4 mg Dis Tab, 4 (more content not included)... [facility] Comment on above: Result Comment: Elec tronically Signed By: CASEY DA SILVA, Hayes Aleman.celeste\Date and Time Signed: 11/16/23 15:49 EDT Clinical Note 03-10-2021 Note Date & Type [...] authenticated by: EDMOND CAAL Date: 2021-03-10 13:48 [facility] Clinical Note 09-04-2020 Note Date [...] Recovery Room in good condition. cc:Dr. Kaufman. [facility] Signed and Approved by: DR HAYES PEÑA . 09/06/2020 08:06:00 [facility] Clinical Note 07-12-2020 Note Date & [...] by: ALLEY ALLEN Date: 2020-07-12 13:58 [facility] Evaluation + Plan note Note Date & Type Note Facility Evaluation + Plan note No data available for this section [facility] Evaluation note Note Date & Type Note Facility Evaluation note No assessment information [facility] Work Phone: Hospital Discharge instructions Note Date & Type Note Facility Hospital Discharge instructions No data available for this section [facility] Progress note Note Date & Type Note Facility Progress note No data available for this section [facility] Summary Purpose Family History No Family History Records FoundNo Family History Records Found No data available for this section No Family History Records Found Advance Directives No Advanced Directives Records Found Advance Directive Response Recorded Date/ Time Advance Directives No December 7:43pm Chief Complaint and Reason for Visit Chief Complaint Sciatica Additional Source Comments INFORMATION SOURCE (unrecogn ized section and content) DATE CREATED AUTHOR 07/12/2021 [facility] DATE CREATED AUTHOR AUTHOR'S ORGANIZ ATION 11/07/2023 [facility] DATE CREATED AUTHOR AUTHOR'S ORGANIZ ATION 11/19/2023 Sukh Figueroa [facility] Care Teams (unrecognized sec tion and content) Team Status: Active Member Role Status Dates Katelyn Kaufman MD Primary Care Provider Active Team Status: Inactive Member Role Status Dates Katelyn Kaufman MD Primary Care Provider Active Start: September 14, 2023 End: September 14, 2023 Jas Kelly DO Attending Provider Active S tart: September 14, 2023 End: September 14, 2023 Goals (unrecognized section and content) Goals may be documented in a n alternate section No data available for this section FOR RECORDS PERTAINING TO PATIENTS WHO [...] BE BASED ON THE PRIMARY CLINICAL RECORDS. [employer] provides no warranty or guarantee of the accuracy or completeness of information in this document.
== END 2023-11-22 11:51 | disposition home or self-care (01) ==
LOC: PST 11:50
PROVIDERS: PCP Family Medicine; Visit Provider Surgery
DX: Z01.818 Encounter for other preprocedural examination (principal); K21.9 Gastro-esophageal reflux disease without esophagitis; R10.13 Epigastric pain

== ENCOUNTER 2023-11-24 08:00 | Day surgery (SDC) | payer MEDICARE, SELFPAY ==
--- NOTE | 2023-11-24 | OP_ITS ---
OPERATION DATE: 11/24/2023 PREOPERATIVE DIAGNOSIS: Epigastric abdominal pain, gastroesophageal reflux disease POSTOPERATIVE DIAGNOSIS: Normal EGD. PROCEDURE: EGD to descending duodenum. SURGEON: Jovan Bolden M.D. ANESTHESIA: Monitored anesthesia care. ESTIMATED BLOOD LOSS: Zero. INDICATIONS AND CONSENT: Patient is a 67-year-old female with seven month history of worsening epigastric abdominal pain, gastroesophageal reflux disease, somewhat improved with Protonix. Indications, risks, benefits, alternatives of proceeding with EGD were explained extensively to the patient, including the risks of bleeding, aspiration, esophageal/gastric/duodenal perforation or anesthetic complications. All of her questions were answered. Informed consent was obtained. PROCEDURE: Patient brought to the operating room, placed in the left lateral decubitus position. Monitored anesthesia care was provided. Bite block was placed in the patient?s mouth. Scope was inserted into the oropharynx. Under direct visualization, it was advanced into the esophagus, past the cricopharyngeus, down to the stomach. The stomach was insufflated with air. The pylorus was traversed down to the descending portion of the duodenum. There was no evidence of duodenitis or ulceration. There was no scarring within the pyloric channel. Scope was pulled back into the stomach and retroflexed. There was no significant hiatal hernia. The GE junction was noted at approximately 35 cm. No gastric mucosal abnormalities or polyps. The GE junction was within normal limits. The remainder of the esophagus was unremarkable. The scope was then withdrawn. Patient tolerated procedure well, was sent to recovery room in good condition. CC: Merrill Kaufman M.D. [facility]PITALJacey
--- OUTSIDE RECORDS SUMMARY | 2023-11-24 08:02 | XMS_ITS | CCD ---
Author Organization [facility] CliniSynh Care Team Providers Care Histology Technologist Name Role Phone DR ALLEY ALLEN Consulting [...] Admitting Unavailable Katelyn Kaufman Primary Care Physician Hayes PEÑA Attending Unavailable Katelyn Kaufman Referring Unavailable Allergies Allergy Classification Reported Allergen(s) Allergy Type Date of Onset Reaction(s) Facility (2 sources) levoFLOXacin; Translations: [levofloxacin] Drug Allergy Muscle pain (finding) [facility] General Surgery [place] Medications Current Medications Medication Drug Class(es) Dates [...] for choosing us for your care. Normal [facility] MG MAMM SCREEN 3D TERA CADon 07-04-2021 MG MAMM SCREEN 3D TERA CAD Patient: MARY JO ROBLES Exam Date: 07/04/2021 : 1955 Gender:F Ordering : DR KATELYN KAUFMAN . Admission #: [id number] Family : Order #: [id number] CLICK HERE TO VIEW EXAM RADIOLOGY REPORT [...] with colon cancer at age 70. LOCATION: [facility] BREAST COMPOSITION: Almost entirely fatty. FINDINGS: [...] Caal MD on 07/04/2021 at 15:03 Normal [facility] Covid-19 PCR (CVDTBH)on 08-22 SARS-CoV-2 (COVID-19) RNA JESSENIA+probe Ql (Unsp spec) Not detected Normal NOT DETECTED [facility] Comment on above: Result Comment: This test is not yet approved or cleared by the [place] FDA. When there are no FDA-approved or cleared tests available, and other criteria are met, FDA can make tests available under an emergency access mechanism called an Emergency Use Authorization (EUA). The EUA for this test is supported by the [place] of Health and Human Service's (HHS's) declaration [...] SARS-CoV-2. Performed By: #### C VDTBH #### [facility] [address] [place] [address] Josef Solano BNPon 08-22-2020 Natriuretic peptide B (Bld) [Mass/Vol] 168.0 pg/mL Normal <=900.0 [facility] Comment on above: Performed By: #### B ALUMNI COORDINATOR, CMP #### [facility] [address] [place] [address] Josef Xiomara CBC AUTO DIFFon 08-22-2020 BASO # 0.0 103/ul Normal 0.0-0.1 [facility] Comment on above: Performed By: #### C BC ####[facility] [address] [place] [id number] Solano Basophils/100 WBC (Bld) 0.6 % Normal 0.2-2.0 [facility] Comment on above: Performed By: #### C BC ####[facility] [address] [place] [id number] Solano EO # 0.1 103/ul Normal 0.0-0.7 [facility] Comment on above: Performed By: #### C BC ####[facility] [address] [place] [address] Xiomara Eosinophils/100 WBC (Bld) 0.9 % Normal 0.9-7.0 [facility] Comment on above: Performed By: #### C BC ####[facility] [address] [place] [address] Xiomara Erythrocyte distribution width (RBC) [Ratio] 12.7 % Normal 11.0-15.0 [facility] Comment on above: Performed By: #### C BC ####[facility] [address] [place] [address] Xiomara Hematocrit (Bld) [Volume fraction] 40.3 % Normal 36.0-48.0 [facility] Comment on above: Performed By: #### C BC ####[facility] [address] [place] [address] Xiom[place] Hemoglobin (Bld) [Mass/Vol] 12.9 g/dL Normal 12.0-16.0 [facility] Comment on above: Performed By: #### C BC ####[facility] [address] [place] [address] Xiomara IG # 0.01 10e3/ul Normal 0.00-0.03 [facility] Comment on above: Performed By: #### C BC ####[facility] [address] [place] [address] Xiom[place] IG % 0.1 % Normal 0.0-0.5 [facility] Comment on above: Performed By: #### C BC ####[facility] [address] [place] [address] Xiomara LYMPH # 2.4 103/ul Normal 1.2-3.8 [facility] Comment on above: Performed By: #### C BC ####[facility] [address] [place] [address] Xiomara Lymphocytes/100 WBC (Bld) 34.5 % Normal 20.5-60.0 [facility] Comment on above: Performed By: #### C BC ####[facility] [address] [place] MANUAL DIFF REQ NO Normal [facility] Comment on above: Performed By: #### C BC ####[facility] [address] Xi[place] MCH (RBC) [Entitic mass] 30.0 pg Normal 26.7-34.0 [facility] Comment on above: Performed By: #### C BC ####[facility] [address] [place] [address] Xiomara MCHC (RBC) [Mass/Vol] 32.0 g/dL Normal 29.9-35.2 [facility] Comment on above: Performed By: #### C BC ####[facility] [address] [place] [address] Xiomara MCV (RBC) [Entitic vol] 93.7 fL Normal 81.0-99.0 [facility] Comment on above: Performed By: #### C BC ####[facility] [address] [place] [address] Xiomara MONO # 0.7 103/ul Normal 0.3-0.8 [facility] Comment on above: Performed By: #### C BC ####[facility] [address] [place] [address] Xiomara Monocytes/100 WBC (Bld) 9.3 % Normal 1.7-12.0 [facility] Comment on above: Performed By: #### C BC ####[facility] [address] [place] [address] Xiomara NEUT # 3.8 103/ul Normal 1.4-6.5 [facility] Comment on above: Performed By: #### C BC ####[facility] [address] [place] [address] Xiomara Neutrophils/100 WBC (Bld) 54.6 % Normal 43.0-75.0 [facility] Comment on above: Performed By: #### C BC ####[facility] [address] [place], [place] [address]DysxydJosef Solano Platelet mean volume (Bld) [Entitic vol] 11.0 fL Normal 9.5-13.5 [facility] Comment on above: Performed By: #### C BC ####[facility] [address] [place] [id number] Solano PLT 211 103/ul Normal 150-450 [facility] Comment on above: Performed By: #### C BC ####[facility] [address] [place] [id number] Solano RBC 4.30 106/ul Normal 4.20-5.40 [facility] Comment on above: Performed By: #### C BC ####[facility] [address] [place] [id number] Solano WBC 7.0 103/ul Normal 4.0-11.0 [facility] Comment on above: Performed By: #### C BC ####[facility] [address] [place], [place] [address]XeqtjlJosef Solano D-DIMERon 08-22-2020 D-DIMER 0.25 mg/L FEU Normal 0.19-0.50 [facility] Comment on above: Performed By: #### D DIM #### [facility] [address] [place], [place] [address] Josef Solano D-DIMER COMMENTS SEE BELOW Normal [facility] Comment on above: Result Comment: Incr eases [...] hospitalization. Performed By: #### D DIM #### [facility] [address] [place], [place] [address] Josef Xiomara PROF 14(COMP METB)on 021 Albumin [Mass/Vol] 3.8 g/dL Normal 3.5-5.0 [facility] Comment on above: Performed By: #### B ALUMNI COORDINATOR, CMP #### [facility] [address] [place], [place] [id number] Josef Xiomara Albumin/Globulin [Mass ratio] 1.2 {ratio} Normal [facility] Comment on above: Performed By: #### B ALUMNI COORDINATOR, CMP #### [facility] [address] [place], [place] [id number] Josef Xiomara ALP [Catalytic activity/Vol] 81 U/L Normal 38-126 [facility] Comment on above: Performed By: #### B ALUMNI COORDINATOR, CMP #### [facility] [address] [place], [place] [id number] Josef Xiomara ALT [Catalytic activity/Vol] 22 U/L Normal 9-52 [facility] Comment on above: Performed By: #### B ALUMNI COORDINATOR, CMP #### [facility] [address] [place] [address] Josef Xiomara Anion gap [Moles/Vol] 11.9 mmol/L Normal [facility] Comment on above: Performed By: #### B ALUMNI COORDINATOR, CMP #### [facility] [address] [place] [address] Josef Xiomara AST [Catalytic activity/Vol] 18 U/L Normal 14-36 [facility] Comment on above: Performed By: #### B ALUMNI COORDINATOR, CMP #### [facility] [address] [place], [place] [id number] Josef Xiomara Bilirubin [Mass/Vol] 0.4 mg/dL Normal 0.2-1.3 [facility] Comment on above: Performed By: #### B ALUMNI COORDINATOR, CMP #### [facility] [address] [place], [place] [id number] Josef Xiomara Calcium [Mass/Vol] 8.7 mg/dL Normal 8.4-10.2 The [facility] Comment on above: Performed By: #### B ALUMNI COORDINATOR, CMP #### [facility] [address] [place], [place] [id number] Josef Xiomara Chloride [Moles/Vol] 104 mmol/L Normal 98-107 [facility] Comment on above: Performed By: #### B ALUMNI COORDINATOR, CMP #### [facility] [address] [place] [address] Josef Xiomara CO2 [Moles/Vol] 29.1 mmol/L Normal 22.0-30.0 [facility] Comment on above: Performed By: #### B ALUMNI COORDINATOR, CMP #### [facility] [address] [place] [address] Josef Xiomara Creatinine [Mass/Vol] 0.59 mg/dL Normal 0.52-1.04 [facility] Comment on above: Performed By: #### B ALUMNI COORDINATOR, CMP #### [facility] [address] [place] [address] Josef Xiomara EGFR-AF NORWEGIAN >60 Normal >=60 [facility] Comment on above: Performed By: #### B ALUMNI COORDINATOR, CMP #### [facility] [address] [place] [address] Josef Xiomara EGFR-NON AF NORWEGIAN >60 Normal >=60 [facility] Comment on above: Performed By: #### B ALUMNI COORDINATOR, CMP #### [facility] [address] [place] [address] Josef Xiomara Globulin (S) [Mass/Vol] 3.3 g/dL Normal [facility] Comment on above: Performed By: #### B ALUMNI COORDINATOR, CMP #### [facility] [address] [place] [address] Josef Xiomara Glucose [Mass/Vol] 72 mg/dL Critically low 74-106 [facility] Comment on above: Performed By: #### B ALUMNI COORDINATOR, CMP #### [facility] [address] [place] [address] Josef Xiomara Potassium [Moles/Vol] 4.0 mmol/L Normal 3.4-5.0 [facility] Comment on above: Performed By: #### B ALUMNI COORDINATOR, CMP #### [facility] [address] [place] [address] Josef Xiomara Protein [Mass/Vol] 7.1 g/dL Normal 6.1-8.2 [place] Comment on above: Performed By: #### B ALUMNI COORDINATOR, CMP #### [facility] [address] [place] [address] Josef Xiomara Sodium [Moles/Vol] 141 mmol/L Normal 137-145 [facility] Comment on above: Performed By: #### B ALUMNI COORDINATOR, CMP #### [facility] [address] [place] [address] Josef Xiomara Urea nitrogen [Mass/Vol] 20.0 mg/dL Critically high 7.0-17.0 [facility] Comment on above: Performed By: #### B ALUMNI COORDINATOR, CMP #### [facility] [address] [place] [address] Josef Xiomara Urea nitrogen/Creatinine [Mass ratio] 33.9 mg/mg Normal [facility] Comment on above: Performed By: #### B ALUMNI COORDINATOR, CMP #### [facility] [address] [place] [address] Josefbrandt Ibarraen CREATININEon 07-25-2020 Creatinine [Mass/Vol] 0.63 mg/dL Normal 0.52-1.04 [facility] Comment on above: Performed By: #### C ZEYAD #### [facility] [address] [place], [place] [id number] Josef Xiomara EGFR-AF NORWEGIAN >60 Normal >=60 [facility] Comment on above: Performed By: #### C ZEYAD #### [facility] [address] [place] [address] Josef Xiomara EGFR-NON AF NORWEGIAN >60 Normal >=60 [facility] Comment on above: Performed By: #### C ZEYAD #### [facility] [address] [place] [address] PELVIS W CONon 07-25-2020 [...] by: ALLEY ALLEN Date: 2020-07-25 14:11 Normal [facility] Vital Signs Date Time Vital Sign Value Performing Clinician Emmanuel borges 11-16-2023 15:08-0400 Blood Pressure Location Hayes PEÑA [facility] 11-16-2023 15:08-0400 Diastolic blood pressure 76 mm[Hg] Hayes PEÑA [facility] 11-16-2023 15:08-0400 Heart rate 70 /min Hayes PEÑA [facility] 11-16-2023 15:08-0400 Respiratory rate 16 /min Hayes PEÑA [facility] 11-16-2023 15:08-0400 Systolic blood pressure 136 mm[Hg] Hayes PEÑA [facility] Encounters Encounter Date Encounter Type Care Provider Facility Start: 11-16-2023 End: 11-16-2023 ambulatory Hayes PEÑA Facility:[facility] Start: 11-16-2023 End: 11-16-2023 Patient encounter procedure Hayes PEÑA [facility] Start: 09-14-2023 End: 09-14-2023 ambulatory MD Katelyn Kaufman Work Phone: [facility] Work Phone: Start: 09-14-2023 End: 09-14-2023 Discharged Recurring MD Katelyn Kaufman Work Phone: [facility] [place] Start: 07-04-2021 End: 07-05-[address] KATELYN KAUFMAN Facility:[facility] Start: 03-10-2021 End: 03-11-[address] KATELYN KAUFMAN Facility:[facility] Start: 09-09-2020 Encounter for preprocedural laboratory examination DR HAYES PEÑA [facility] Start: 09-04-2020 End: 09-04-[address] HAYES PEÑA Facility:[facility] Start: 08-31-2020 End: 09-01-[address] HAYES PEÑA Facility:[facility] Start: 08-31-2020 End: 09-01-2020 Encounter for preprocedural laboratory examination DR HAYES PEÑA Facility:[facility] Start: 08-30-2020 Encounter for preprocedural cardiovascular examination DR HAYES PEÑA [facility] Start: 08-22-2020 End: 08-23-[address] HAYES [...] live, attenuated, for intranasal use Hayes DURANTPaul [facility] Payers Date Payer Category Payer Self-pay [id number] 2023 Private Health Insurance [id number] 1961 Medicare [id number] 1961 Medicare [id number] 1955 Unknown [id number] 2.16.84 [id number] 1955 Unknown [id number] 2.16.84 [id number] 1955 Unknown [id number] 2.16.84 [id number] 1955 Unknown [id number] 2.16.84 [id number] 1955 Unknown [id number] 2.16.84 [id number] 1955 Unknown [id number] 2.16.84 [id number] 1955 Unknown [id number] 2.16.84 [id number] 1955 Unknown [id number] 2.16.8 [id number] Medicare Medicare [id number] Unknown [id number] 2.16.8 [id number] Social History Date Type Detail Facility Tobacco smoking stat [facility] Unknown if ever smoked [facility] Work Phone: Start: 1955 Sex Assigned At Female [facility] Start: 11-16-2023 Tobacco smoking status Never s moked tobacco (finding) [facility] Tobacco smoking status Never [facility] Sex Assigned At Female [facility] Functional Status Date Assessment Result Facility 11-16-2023 Functional Status N/A [facility] Clinical Note 11-16-2023 Note Date & [...] Dis Tab, 4 (more content not included)... [facility] Comment on above: Result Comment: Elec [...] authenticated by: EDMOND CAAL Date: 2021-03-10 13:48 [facility] Clinical Note 09-04-2020 Note Date & Type [...] Recovery Room in good condition. cc:Dr. Kaufman. [facility] Signed and Approved by: DR HAYES PEÑA . 09/06/2020 08:06:00 [facility] Clinical Note 07-12-2020 Note Date & Type [...] by: ALLEY ALLEN Date: 2020-07-12 13:58 [facility] Evaluation + Plan note Note Date & Type Note Facility Evaluation + Plan note No data available for this section [facility] Evaluation note Note Date & Type Note Facility Evaluation note No assessment information [facility] Work Phone: Hospital Discharge instructions Note Date & Type Note Facility Hospital Discharge instructions No data available for this section [facility] Progress note Note Date & Type Note Facility Progress note No data available for this section [facility] Summary Purpose Family History No Family History [...] CREATED AUTHOR AUTHOR'S ORGANIZ ATION 11/07/2023 [facility] DATE CREATED AUTHOR AUTHOR'S ORGANIZ ATION 11/19/2023 Sukh Figueroa [facility] Care Teams (unrecognized sec tion and content) [...] BE BASED ON THE PRIMARY CLINICAL RECORDS. [employer] provides no warranty or guarantee of the accuracy or completeness of information in this document.
[2023-11-24 08:30] VITALS: BMI 28.4
[2023-11-24] MEDS: LACTATED RINGER'S SOLUTION 1,000 ML 50 ML IV (08:52)
[2023-11-24 09:53] VITALS: BP 115/57; PULSE 63; TEMP 36.3; O2SAT 100
[2023-11-24 10:08] VITALS: BP 96/70; PULSE 69; O2SAT 98
[2023-11-24 10:25] VITALS: BP 112/68; PULSE 68; O2SAT 99
== END 2023-11-24 10:33 | disposition home or self-care (01) ==
PROVIDERS: PCP Family Medicine; Visit Provider Surgery
PROC: (CPT 43235; principal; 2023-11-24 09:25)
DX: R10.13 Epigastric pain (principal); K21.9 Gastro-esophageal reflux disease without esophagitis; R10.33 Periumbilical pain; M81.0 Age-related osteoporosis without current pathological fracture; Z90.710 Acquired absence of both cervix and uterus; Z96.653 Presence of artificial knee joint, bilateral
CPT/HCPCS: 43235; J2704

== ENCOUNTER 2023-12-02 07:41 | Outpatient (OUT) | payer MEDICARE, SELFPAY ==
--- NOTE | 2023-12-02 07:45 | US_ITS ---
The [address] [address] Patient Name: MARY JO ROBLES MRN: [id number] date: 1955 Sex: F Assigned Patient Location: US Current Patient Location: US Accession/Order Number: [id number] Exam Date: 12/02/2023 07:46 Report Date: 12/02/2023 08:59 At the request of: KATELYN YOON Procedure: US abdomen complete EXAMINATION: US abdomen complete HISTORY: Abdominal Pain COMPARISON: CT abdomen pelvis 09/23/2023 TECHNIQUE: High resolution sonographic examination of the abdomen was performed. FINDINGS: LIVER: Normal. Normal size and echotexture. No significant masses. Normal waveform and flow within the main portal vein, 38 cm/s. BILIARY: Normal. Normal appearing gallbladder and biliary tree. PANCREAS: Normal. No visible mass, abnormal atrophy, or ductal dilatation. SPLEEN: Innumerable calcifications throughout the spleen.. Normal size and echotexture. KIDNEYS: Normal. No mass or obstruction. AORTA/VASCULAR: Normal. No aneurysm.; Patent IVC. OTHER: Negative. US/US abdomen complete IMPRESSION: 1. No acute or suspicious findings to account for patient's symptoms. Electronically authenticated by: ALLEY ALLEN Date: 12/02/2023 08:59
--- OUTSIDE RECORDS SUMMARY | 2023-12-02 07:48 | XMS_ITS | CCD ---
Author Organization [facility] Care Team Providers Care Sat Tutor Name Role Phone DR ALLEY ALLEN Consulting [...] Attending Unavailable Jas Kelly Admitting Unavailable Katelyn aKufman Primary Care Physician [phone] Hayes PEÑA Attending Unavailable Katelyn Kaufman Referring Unavailable Allergies Allergy Classification Reported Allergen(s) Allergy Type Date of Onset Reaction(s) Facility (2 sources) levoFLOXacin; Translations: [levofloxacin] Drug Allergy Muscle pain (finding) [facility] General Surgery Amelia Medications Current Medications Medication Drug Class(es) Dates [...] for choosing us for your care. Normal [facility] MG MAMM SCREEN 3D TERA CADon 07-04-2021 MG MAMM SCREEN 3D TERA CAD Patient: MARY JO ROBLES Exam Date: 07/04/2021 : 1955 Gender:F Ordering : DR KATELYN KAUFMAN . Admission #: [id number] Family : Order #: [id number] CLICK HERE TO VIEW EXAM RADIOLOGY REPORT [...] with colon cancer at age 70. LOCATION: [facility] BREAST COMPOSITION: Almost entirely fatty. FINDINGS: DIAGNOSTIC [...] Caal MD on 07/04/2021 at 15:03 Normal [facility] Covid-19 PCR (CVDTBH)on 08-22 SARS-CoV-2 (COVID-19) RNA JESSENIA+probe Ql (Unsp spec) Not detected Normal NOT DETECTED [facility] Comment on above: Result Comment: This test is not yet approved or cleared by the [place] FDA. When there are no FDA-approved or cleared tests available, and other criteria are met, FDA can make tests available under an emergency access mechanism called an Emergency Use Authorization (EUA). The EUA for this test is supported by the [place] Lecturer of Health and Human Service's (HHS's) declaration [...] SARS-CoV-2. Performed By: #### C VDTBH #### [facility] [address] [place] [address] Josef Solano BNPon 08-22-2020 Natriuretic peptide B (Bld) [Mass/Vol] 168.0 pg/mL Normal <=900.0 [facility] Comment on above: Performed By: #### B MANIFEST/ORDER ORGANIZER PRINT ORDERS, CMP #### [facility] [address] [place] [address] Josef Xiomara CBC AUTO DIFFon 08-22-2020 BASO # 0.0 103/ul Normal 0.0-0.1 [facility] Comment on above: Performed By: #### C BC ####[facility] [address] [place] [id number] Solano Basophils/100 WBC (Bld) 0.6 % Normal 0.2-2.0 [facility] Comment on above: Performed By: #### C BC ####[facility] [address] [place] [id number] Solano EO # 0.1 103/ul Normal 0.0-0.7 [facility] Comment on above: Performed By: #### C BC ####[facility] [address] [place] [address] Xiomara Eosinophils/100 WBC (Bld) 0.9 % Normal 0.9-7.0 [facility] Comment on above: Performed By: #### C BC ####[facility] [address] [place] [address] Xi[place] Erythrocyte distribution width (RBC) [Ratio] 12.7 % Normal 11.0-15.0 [facility] Comment on above: Performed By: #### C BC ####[facility] [address] [place] [address] Xiomara Hematocrit (Bld) [Volume fraction] 40.3 % Normal 36.0-48.0 [facility] Comment on above: Performed By: #### C BC ####[facility] [address] [place] [address] Xiomara Hemoglobin (Bld) [Mass/Vol] 12.9 g/dL Normal 12.0-16.0 [facility] Comment on above: Performed By: #### C BC ####[facility] [address] [place] [address] Xiomara IG # 0.01 10e3/ul Normal 0.00-0.03 [facility] Comment on above: Performed By: #### C BC ####[facility] [address] [place] [address] Xiomara IG % 0.1 % Normal 0.0-0.5 [facility] Comment on above: Performed By: #### C BC ####[facility] [address] [place] [address] Xiomara LYMPH # 2.4 103/ul Normal 1.2-3.8 [facility] Comment on above: Performed By: #### C BC ####[facility] [address] [place] [address] Xiomara Lymphocytes/100 WBC (Bld) 34.5 % Normal 20.5-60.0 [facility] Comment on above: Performed By: #### C BC ####[facility] [address] [place] MANUAL DIFF REQ NO Normal [facility] Comment on above: Performed By: #### C BC ####[facility] [address] Xi[place] MCH (RBC) [Entitic mass] 30.0 pg Normal 26.7-34.0 [facility] Comment on above: Performed By: #### C BC ####[facility] [address] [place] [address] Xiomara MCHC (RBC) [Mass/Vol] 32.0 g/dL Normal 29.9-35.2 [facility] Comment on above: Performed By: #### C BC ####[facility] [address] [place] [address] Xiomara MCV (RBC) [Entitic vol] 93.7 fL Normal 81.0-99.0 [facility] Comment on above: Performed By: #### C BC ####[facility] [address] [place] [address] Xiomara MONO # 0.7 103/ul Normal 0.3-0.8 [facility] Comment on above: Performed By: #### C BC ####[facility] [address] [place] [address] Xiomara Monocytes/100 WBC (Bld) 9.3 % Normal 1.7-12.0 [facility] Comment on above: Performed By: #### C BC ####[facility] [address] [place] [address] Xiomara NEUT # 3.8 103/ul Normal 1.4-6.5 [facility] Comment on above: Performed By: #### C BC ####[facility] [address] [place] [address] Xiomara Neutrophils/100 WBC (Bld) 54.6 % Normal 43.0-75.0 [facility] Comment on above: Performed By: #### C BC ####[facility] [address] [place], [place] [address]LzwybqJosef Solano Platelet mean volume (Bld) [Entitic vol] 11.0 fL Normal 9.5-13.5 [facility] Comment on above: Performed By: #### C BC ####[facility] [address] [place] [id number] Solano PLT 211 103/ul Normal 150-450 [facility] Comment on above: Performed By: #### C BC ####[facility] [address] [place] [id number] Solano RBC 4.30 106/ul Normal 4.20-5.40 [facility] Comment on above: Performed By: #### C BC ####[facility] [address] [place] [id number] Solano WBC 7.0 103/ul Normal 4.0-11.0 [facility] Comment on above: Performed By: #### C BC ####[facility] [address] [place], [place] [address]UkwvwkJosef Solano D-DIMERon 08-22-2020 D-DIMER 0.25 mg/L FEU Normal 0.19-0.50 [facility] Comment on above: Performed By: #### D DIM #### [facility] [address] [place], [place] [address] Josef Solano D-DIMER COMMENTS SEE BELOW Normal [facility] Comment on above: Result Comment: Incr eases [...] hospitalization. Performed By: #### D DIM #### [facility] [address] [place], [place] [address] Josef Xiomara PROF 14(COMP METB)on 021 Albumin [Mass/Vol] 3.8 g/dL Normal 3.5-5.0 [facility] Comment on above: Performed By: #### B MANIFEST/ORDER ORGANIZER PRINT ORDERS, CMP #### [facility] [address] [place], [place] [id number] Josef Xiomara Albumin/Globulin [Mass ratio] 1.2 {ratio} Normal [facility] Comment on above: Performed By: #### B MANIFEST/ORDER ORGANIZER PRINT ORDERS, CMP #### [facility] [address] [place], [place] [id number] Josef Xiomara ALP [Catalytic activity/Vol] 81 U/L Normal 38-126 [facility] Comment on above: Performed By: #### B MANIFEST/ORDER ORGANIZER PRINT ORDERS, CMP #### [facility] [address] [place], [place] [id number] Josef Xiomara ALT [Catalytic activity/Vol] 22 U/L Normal 9-52 [facility] Comment on above: Performed By: #### B MANIFEST/ORDER ORGANIZER PRINT ORDERS, CMP #### [facility] [address] [place] [address] Josef Xiomara Anion gap [Moles/Vol] 11.9 mmol/L Normal [facility] Comment on above: Performed By: #### B MANIFEST/ORDER ORGANIZER PRINT ORDERS, CMP #### [facility] [address] [place] [address] Josef Xiomara AST [Catalytic activity/Vol] 18 U/L Normal 14-36 [facility] Comment on above: Performed By: #### B MANIFEST/ORDER ORGANIZER PRINT ORDERS, CMP #### [facility] [address] [place], [place] [id number] Josef Xiomara Bilirubin [Mass/Vol] 0.4 mg/dL Normal 0.2-1.3 [facility] Comment on above: Performed By: #### B MANIFEST/ORDER ORGANIZER PRINT ORDERS, CMP #### [facility] [address] [place], [place] [id number] Josef Xiomara Calcium [Mass/Vol] 8.7 mg/dL Normal 8.4-10.2 [facility] Comment on above: Performed By: #### B MANIFEST/ORDER ORGANIZER PRINT ORDERS, CMP #### [facility] [address] [place], [place] [id number] Josef Xiomara Chloride [Moles/Vol] 104 mmol/L Normal 98-107 [facility] Comment on above: Performed By: #### B MANIFEST/ORDER ORGANIZER PRINT ORDERS, CMP #### [facility] [address] [place] [address] Josef Xiomara CO2 [Moles/Vol] 29.1 mmol/L Normal 22.0-30.0 [place] Comment on above: Performed By: #### B MANIFEST/ORDER ORGANIZER PRINT ORDERS, CMP #### [facility] [address] [place] [address] Josef Xiomara Creatinine [Mass/Vol] 0.59 mg/dL Normal 0.52-1.04 [facility] Comment on above: Performed By: #### B MANIFEST/ORDER ORGANIZER PRINT ORDERS, CMP #### [facility] [address] [place] [address] Josef Xiomara EGFR-AF LIBERIAN >60 Normal >=60 [place] Comment on above: Performed By: #### B MANIFEST/ORDER ORGANIZER PRINT ORDERS, CMP #### [facility] [address] [place] [address] Josef Xiomara EGFR-NON AF LIBERIAN >60 Normal >=60 [facility] Comment on above: Performed By: #### B MANIFEST/ORDER ORGANIZER PRINT ORDERS, CMP #### [facility] [address] [place] [address] Josef Xiomara Globulin (S) [Mass/Vol] 3.3 g/dL Normal [facility] Comment on above: Performed By: #### B MANIFEST/ORDER ORGANIZER PRINT ORDERS, CMP #### [facility] [address] [place] [address] Josef Xiomara Glucose [Mass/Vol] 72 mg/dL Critically low 74-106 [facility] Comment on above: Performed By: #### B MANIFEST/ORDER ORGANIZER PRINT ORDERS, CMP #### [facility] [address] [place] [address] Josef Xiomara Potassium [Moles/Vol] 4.0 mmol/L Normal 3.4-5.0 [facility] Comment on above: Performed By: #### B MANIFEST/ORDER ORGANIZER PRINT ORDERS, CMP #### [facility] [address] [place] [address] Josef Xiomara Protein [Mass/Vol] 7.1 g/dL Normal 6.1-8.2 [facility] Comment on above: Performed By: #### B MANIFEST/ORDER ORGANIZER PRINT ORDERS, CMP #### [facility] [address] [place] [address] Josef Xiomara Sodium [Moles/Vol] 141 mmol/L Normal 137-145 [facility] Comment on above: Performed By: #### B MANIFEST/ORDER ORGANIZER PRINT ORDERS, CMP #### [facility] [address] [place] [address] Josef Xiomara Urea nitrogen [Mass/Vol] 20.0 mg/dL Critically high 7.0-17.0 [facility] Comment on above: Performed By: #### B MANIFEST/ORDER ORGANIZER PRINT ORDERS, CMP #### [facility] [address] [place] [address] Josef Xiomara Urea nitrogen/Creatinine [Mass ratio] 33.9 mg/mg Normal [facility] Comment on above: Performed By: #### B MANIFEST/ORDER ORGANIZER PRINT ORDERS, CMP #### [facility] [address] [place] [address] Josefbrandt Ibarraen CREATININEon 07-25-2020 Creatinine [Mass/Vol] 0.63 mg/dL Normal 0.52-1.04 [facility] Comment on above: Performed By: #### C ZEYAD #### [facility] [address] [place], [place] [id number] Josef Xiomara EGFR-AF LIBERIAN >60 Normal >=60 [place] Comment on above: Performed By: #### C ZEYAD #### [facility] [address] [place] [address] Josef Xiomara EGFR-NON AF LIBERIAN >60 Normal >=60 [facility] Comment on above: Performed By: #### C ZEYAD #### [facility] [address] [place] [address] PELVIS W CONon 07-25-2020 [...] by: ALLEY ALLEN Date: 2020-07-25 14:11 Normal [facility] Vital Signs Date Time Vital Sign Value Performing Clinician Emmanuel borges 11-16-2023 15:08-0400 Blood Pressure Location Hayes PEÑA [facility] 11-16-2023 15:08-0400 Diastolic blood pressure 76 mm[Hg] Hayes PEÑA [facility] 11-16-2023 15:08-0400 Heart rate 70 /min Hayes PEÑA [facility] 11-16-2023 15:08-0400 Respiratory rate 16 /min Hayes PEÑA [facility] 11-16-2023 15:08-0400 Systolic blood pressure 136 mm[Hg] Hayes PEÑA [facility] Encounters Encounter Date Encounter Type Care Provider Facility Start: 11-16-2023 End: 11-16-2023 ambulatory Hayes PEÑA Facility:[facility] Start: 11-16-2023 End: 11-16-2023 Patient encounter procedure Hayes PEÑA [facility] Start: 09-14-2023 End: 09-14-2023 ambulatory MD Katelyn Kaufman Work Phone: [facility] Work Phone: Start: 09-14-2023 End: 09-14-2023 Discharged Recurring MD Katelyn Kaufman Work Phone: [facility] [place] Start: 07-04-2021 End: 07-05-[address] KATELYN KAUFMAN Facility:[facility] Start: 03-10-2021 End: 03-11-[address] KATELYN KAUFMAN Facility:[facility] Start: 09-09-2020 Encounter for preprocedural laboratory examination DR HAYES PEÑA [facility] Start: 09-04-2020 End: 09-04-[address] HAYES PEÑA Facility:[facility] Start: 08-31-2020 End: 09-01-[address] HAYES PEÑA Facility:[facility] Start: 08-31-2020 End: 09-01-2020 Encounter for preprocedural laboratory examination DR HAYES PEÑA Facility:[facility] Start: 08-30-2020 Encounter for preprocedural cardiovascular examination DR HAYES PEÑA [facility] Start: 08-22-2020 End: 08-23-[address] HAYES [...] live, attenuated, for intranasal use Hayes DURANTPaul [facility] Payers Date Payer Category Payer Self-pay [id number] 2023 Private Health Insurance [id number] 1961 Medicare [id number] 1961 Medicare [id number] 1955 Unknown [id number] 2.16.84 [id number] 1955 Unknown [id number] 2.16.84 [id number] 1955 Unknown [id number] 2.16.84 [id number] 1955 Unknown [id number] 2.16.84 [id number] 1955 Unknown [id number] 2.16.84 [id number] 1955 Unknown [id number] 2.16.84 [id number] 1955 Unknown [id number] 2.16.84 [id number] 1955 Unknown [id number] 2.16.8 [id number] Medicare Medicare [id number] Unknown [id number] 2.16.8 [id number] Social History Date Type Detail Facility Tobacco smoking stat [facility] Unknown if ever smoked [facility] Work Phone: Start: 1955 Sex Assigned At Female Heather [facility] Start: 11-16-2023 Tobacco smoking status Never s moked tobacco (finding) [facility] Tobacco smoking status Never [facility] Sex Assigned At Female [facility] Functional Status Date Assessment Result Facility 11-16-2023 Functional Status N/A [facility] Clinical Note 11-16-2023 Note Date [...] Dis Tab, 4 (more content not included)... [facility] Comment on above: Result Comment: [...] authenticated by: EDMOND CAAL Date: 2021-03-10 13:48 [facility] Clinical Note 09-04-2020 Note Date & Type [...] Recovery Room in good condition. cc:Dr. Kaufman. [facility] Signed and Approved by: DR HAYES PEÑA . 09/06/2020 08:06:00 [facility] Clinical Note 07-12-2020 Note Date & [...] by: ALLEY ALLEN Date: 2020-07-12 13:58 [facility] Evaluation + Plan note Note Date & Type Note Facility Evaluation + Plan note No data available for this section [facility] Evaluation note Note Date & Type Note Facility Evaluation note No assessment information [facility] Work Phone: Hospital Discharge instructions Note Date & Type Note Facility Hospital Discharge instructions No data available for this section [facility] Progress note Note Date & Type Note Facility Progress note No data available for this section [facility] Summary Purpose Family History No Family History [...] CREATED AUTHOR AUTHOR'S ORGANIZ ATION 11/07/2023 [facility] DATE CREATED AUTHOR AUTHOR'S ORGANIZ ATION 11/19/2023 Sukh Figueroa [facility] Care Teams (unrecognized sec tion and [...] BE BASED ON THE PRIMARY CLINICAL RECORDS. [employer] provides no warranty or guarantee of the accuracy or completeness of information in this document.
--- NOTE | 2023-12-02 08:10 | NM_ITS ---
[address] [address] Patient Name: MARY JO ROBLES MRN: [id number] date: 1955 Sex: F Assigned Patient Location: Current Patient Location: [place] Accession/Order Number: [id number] Exam Date: 12/02/2023 08:00 Report Date: 12/02/2023 13:03 At the request of: KATELYN YOON Procedure: OR hepatobiliary w pharm EXAMINATION: OR hepatobiliary w pharm HISTORY: ABDOMINAL PAIN , nausea, right upper quadrant pain radiating to her back COMPARISON: Ultrasound abdomen complete 12/02/2023 TECHNIQUE: Radionuclide hepatobiliary imaging was performed after intravenous injection of 4.9 Ci Tc-99m OSMAN derivative with sequential acquisitions every 1 minute for one hour. Hepatobiliary imaging with gallbladder ejection fraction analysis was then performed with sequential imaging every 1 minute for 60 minutes following ingestion of 8 oz. Ensure Plus. FINDINGS: LIVER: Slightly delayed but otherwise uniform radiotracer uptake and clearing. BILIARY DUCTS: Normal radioisotopic biliary excretion. GALLBLADDER: Normal filling, but only slight emptying. INTESTINE: Limited radiotracer within the bowel. But no complete obstruction of the common bile duct. EJECTION FRACTION: 20 % within 60 minutes. (Normal EF > 38%). OTHER: Negative. OR/OR hepatobiliary w pharm IMPRESSION: 1. Abnormal gallbladder emptying suggestive of dyskinesia or ball-valve type obstruction. Electronically authenticated by: ALLEY ALLEN Date: 12/02/2023 13:03
== END 2023-12-02 07:42 | disposition home or self-care (01) ==
LOC: US 07:41
PROVIDERS: PCP Family Medicine; Visit Provider Family Medicine
DX: R10.9 Unspecified abdominal pain (principal)
CPT/HCPCS: 76700; 78227; A9537

== ENCOUNTER 2023-12-10 13:21 | Outpatient (OUT) | payer MEDICARE, SELFPAY ==
--- OUTSIDE RECORDS SUMMARY | 2023-12-10 13:29 | XMS_ITS | CCD ---
Author Organization [facility] Care Team Providers Care Computer Forensic Examiner Name Role Phone DR ALLEY ALLEN Consulting [...] DR KOO Admitting Unavailable ZIEBER, DR ALLEY Bealsey Consulting Unavailable NILL, DR KOO Attending Unavailable HOY, DR ZEPEDA Primary Care Unavailable NILL, DR KOO Consulting Unavailable HOY, DR ZEPEDA Admitting Unavailable HOY, DR ZEPEDA Referring Unavailable HOY, DR ZEPEDA Attending Unavailable HOMita, DR ZEPEDA Consulting Unavailable HOY, DR ZEPEDA Primary Care Unavailable WEST, DR EDMOND Humphries Consulting Unavailable HOY, DR ZEPEDA Admitting Unavailable HOY, DR ZEPEDA Attending Unavailable HOY, DR ZEPEDA Consulting Unavailable HOY, DR ZEPEDA Primary Care Unavailable AFUA, DR EDMOND Humphries Consulting Unavailable MD Katelyn Kaufman Primary Care Provider DO Jas Kelly Attending Provider Katelyn Kaufman Primary Care Unavailable Jas Kelly Attending Unavailable Jas Kelly Admitting Unavailable Katelyn Kaufman Primary Care Physician Hayes PEÑA Attending Unavailable Katelyn Kaufman Referring Unavailable Hayes PEÑA Attending Unavailable JATIN HAYDEN Attending Unavailable KATELYN KAUFMAN Referring Unavailable Katelyn Kaufman MD Primary Care Provider [phone] Allergies Allergy Classification Reported Allergen(s) Allergy Type Date of Onset Reaction(s) Facility (4 sources) levoFLOXacin; Translations: [levofloxacin] Drug Allergy 4 Muscle pain (finding), Other [facility] [place] (2 sources) Non-steroidal anti-inflammato ry agent Propensity to adverse reactions 4 GI intolerance [facility] (2 sources) Sucralfate Drug Allergy 4 GI intolerance [facility] Medications Current Medications Medication Drug Class(es) Dates Sig (Normalized) Sig (Original) hyoscyamine sulfate 0.125 mg disintegrating oral tablet (3 sources) Start: 11-29-2023 take 1 tablet under the tongue every four hours as needed hyoscyamine (Anaspaz) 0.[address] 0.125 mg under the tongue every 4 (four) hours if needed 11/29/2023 Active Start: 11-03-2023 take 1 tablet by irving th every four hours as needed for pain hyoscyamine 0.125 mg oral Tab 0.125 mg = 1 tab(s), Oral, q4hr, PRN abdominal pain, Refills(s) 0 Start Date: 11/03/23 Status: Ordered ondansetron 4 mg disintegrating oral tablet (3 sources) Serotonin-3 Receptor Antagonist Start: 11-03-2023 take 1 tablet by mouth three times daily as needed for nausea ondansetron 4 mg Dis Tab 4 mg = 1 tab(s), Oral, TID, PRN Nausea/Vomiting, Refills(s) 0 Start Date: 11/03/23 Status: Ordered take 1 tablet by irving th every eight hours as needed for nausea ondansetron ODT (Zofran-ODT) 4 MG disintegrating tablet Take 4 mg by mouth every 8 (eight) hours if needed for nausea Active pantoprazole 40 mg delayed release oral tablet (3 sources) Proton Pump Inhibitor Start: 11-03-2023 take 1 tablet by mouth once daily Protonix 40 mg Tab-DR 40 mg = 1 tab(s), Oral, Daily, Refills(s) 0 Start Date: 11/03/23 Status: Ordered Problems Active Problems Problem Classification Problem Date Documented Date Episodic/Chronic Abdominal pain (8 sources) Left lower quadrant pain; Translations: [Periumbilical pain] Onset: 07-25-2020 Episodic Biliary tract disease (2 sources) Biliary dyskinesia; Translations: [Other specified diseases of gallbladder] 12-06-2023 Episodic Diverticulosis and diverticulitis (1 source) Diverticulosis [...] 11-16-2023 Ambulatory Visit Summary Ambulatory Visit Summary SHANIQUE CAMARGO Paul :1955 Visit Date:11/16/2023 Ambulatory Visit Instructions Your Care Team Attending Physician - CASEY DA SILVA, Hayes Beasley Primary Care Physician - Katelyn Kaufman MD [...] for choosing us for your care. Normal [facility] MG MAMM SCREEN 3D TERA CADon 07-04-2021 MG MAMM SCREEN 3D TERA CAD Patient: SHANIQUE CAMARGO Exam Date: 07/04/2021 : 1955 Gender:F Ordering : DR KATELYN KAUFMAN . Admission #: [id number] Family : Order #: [id number] CLICK HERE TO VIEW EXAM RADIOLOGY REPORT [...] colon cancer at age 70. LOCATION: [facility] BREAST COMPOSITION: Almost entirely fatty. FINDINGS: DIAGNOSTIC [...] MD on 07/04/2021 at 15:03 Normal [facility] Covid-19 PCR (CVDTB)on 08-22 SARS-CoV-2 (COVID-19) RNA JESSENIA+probe Ql (Unsp spec) Not detected Normal NOT DETECTED [facility] Comment on above: Result Comment: This test is not yet approved or cleared by the [place] FDA. When there are no FDA-approved or cleared tests available, and other criteria are met, FDA can make tests available under an emergency access mechanism called an Emergency Use Authorization (EUA). The EUA for this test is supported by the Curing Room Worker of Health and Human Service's (HHS's) declaration [...] SARS-CoV-2. Performed By: #### C VDTB #### [facility] [address] [place], [place] [address] Josefbrandt Solano BNPon 08-22-2020 Natriuretic peptide B (Bld) [Mass/Vol] 168.0 pg/mL Normal <=900.0 [facility] Comment on above: Performed By: #### B BREAD WRAPPER OPERATOR, CMP #### [facility] [address] [place], [place] [address] Josefbrandt Solano CBC AUTO DIFFon 08-22-2020 BASO # 0.0 103/ul Normal 0.0-0.1 [facility] Comment on above: Performed By: #### C BC ####[facility] [address] [place] [address]Gerken [place] Basophils/100 WBC (Bld) 0.6 % Normal 0.2-2.0 [facility] Comment on above: Performed By: #### C BC ####[facility] [address] [place] [address] EO # 0.1 103/ul Normal 0.0-0.7 [facility] Comment on above: Performed By: #### C BC ####[facility] [address] [place] [address]Gerbrandt Solano Eosinophils/100 WBC (Bld) 0.9 % Normal 0.9-7.0 [facility] Comment on above: Performed By: #### C BC ####[facility] Z[address] [place] Erythrocyte distribution width (RBC) [Ratio] 12.7 % Normal 11.0-15.0 [facility] Comment on above: Performed By: #### C BC ####[facility] [address] [place] [id number] Solano Hematocrit (Bld) [Volume fraction] 40.3 % Normal 36.0-48.0 [facility] Comment on above: Performed By: #### C BC ####[facility] [address] [place] [id number] Solano Hemoglobin (Bld) [Mass/Vol] 12.9 g/dL Normal 12.0-16.0 [facility] Comment on above: Performed By: #### C BC ####[facility] X[address] [place] IG # 0.01 10e3/ul Normal 0.00-0.03 [facility] Comment on above: Performed By: #### C BC ####[facility] T[address] [place] IG % 0.1 % Normal 0.0-0.5 [facility] Comment on above: Performed By: #### C BC ####[facility] [address] [place] [address] [place] LYMPH # 2.4 103/ul Normal 1.2-3.8 [facility] Comment on above: Performed By: #### C BC ####[facility] [address] [place] [address] [place] Lymphocytes/100 WBC (Bld) 34.5 % Normal 20.5-60.0 [facility] Comment on above: Performed By: #### C BC ####[facility] [address] [place] [address] [place] MANUAL DIFF REQ NO Normal [facility] Comment on above: Performed By: #### C BC ####[facility] [address] [place] [address] [place] MCH (RBC) [Entitic mass] 30.0 pg Normal 26.7-34.0 [facility] Comment on above: Performed By: #### C BC ####[facility] [address] [place] [address] [place] MCHC (RBC) [Mass/Vol] 32.0 g/dL Normal 29.9-35.2 [facility] Comment on above: Performed By: #### C BC ####[facility] [address] [place] [address] [place] MCV (RBC) [Entitic vol] 93.7 fL Normal 81.0-99.0 [facility] Comment on above: Performed By: #### C BC ####[facility] [address] [place], [place] [address]Apboyu [place] MONO # 0.7 103/ul Normal 0.3-0.8 [facility] Comment on above: Performed By: #### C BC ####[facility] [address] [place], [place] [address]Qhcwot [place] Monocytes/100 WBC (Bld) 9.3 % Normal 1.7-12.0 [facility] Comment on above: Performed By: #### C BC ####[facility] [address] [place] [address]Jhcjrg [place] NEUT # 3.8 103/ul Normal 1.4-6.5 [facility] Comment on above: Performed By: #### C BC ####[facility] [address] [place], [place] [address]Gerken [place] Neutrophils/100 WBC (Bld) 54.6 % Normal 43.0-75.0 [facility] Comment on above: Performed By: #### C BC ####[facility] [address] [place] [address]Kjnbtx [place] Platelet mean volume (Bld) [Entitic vol] 11.0 fL Normal 9.5-13.5 [facility] Comment on above: Performed By: #### C BC ####[facility] [address] [place], [place] [address]Gerken [place] PLT 211 103/ul Normal 150-450 [facility] Comment on above: Performed By: #### C BC ####[facility] [address] [place] [address]Xkvseh [place] RBC 4.30 106/ul Normal 4.20-5.40 [facility] Comment on above: Performed By: #### C BC ####[facility] [address] [place], [place] [address]Gerken [place] WBC 7.0 103/ul Normal 4.0-11.0 [facility] Comment on above: Performed By: #### C BC ####[facility] [address] [place], [place] [address]Uyluty Karen D-DIMERon 08-22-2020 D-DIMER 0.25 mg/L FEU Normal 0.19-0.50 [facility] Comment on above: Performed By: #### D DIM #### [facility] [address] [place], [place] [address] Josefbrandt Solano D-DIMER COMMENTS SEE BELOW Normal [facility] Comment on above: Result Comment: Incr [...] hospitalization. Performed By: #### D DIM #### [facility] [address] [place], [place] [address] Josef Solano PROF 14(COMP METB)on 021 Albumin [Mass/Vol] 3.8 g/dL Normal 3.5-5.0 [facility] Comment on above: Performed By: #### B BREAD WRAPPER OPERATOR, CMP #### [facility] [address] [place], [place] [address] Josefbrandt Solano Albumin/Globulin [Mass ratio] 1.2 {ratio} Normal [facility] Comment on above: Performed By: #### B BREAD WRAPPER OPERATOR, CMP #### [facility] [address] [place], [place] [address] Josef Xiomara ALP [Catalytic activity/Vol] 81 U/L Normal 38-126 [facility] Comment on above: Performed By: #### B BREAD WRAPPER OPERATOR, CMP #### [facility] [address] [place], [place] [address] Josef Xiomara ALT [Catalytic activity/Vol] 22 U/L Normal 9-52 [facility] Comment on above: Performed By: #### B BREAD WRAPPER OPERATOR, CMP #### [facility] [address] [place], [place] [address] Josef Xiom[place] Anion gap [Moles/Vol] 11.9 mmol/L Normal [facility] Comment on above: Performed By: #### B BREAD WRAPPER OPERATOR, CMP #### [facility] [address] [place] [address] Josef Xiomara AST [Catalytic activity/Vol] 18 U/L Normal 14-36 [facility] Comment on above: Performed By: #### B BREAD WRAPPER OPERATOR, CMP #### [facility] [address] [place] [address] Josef Xiomara Bilirubin [Mass/Vol] 0.4 mg/dL Normal 0.2-1.3 [facility] Comment on above: Performed By: #### B BREAD WRAPPER OPERATOR, CMP #### [facility] [address] [place] [address] Josef Xiomara Calcium [Mass/Vol] 8.7 mg/dL Normal 8.4-10.2 [facility] Comment on above: Performed By: #### B BREAD WRAPPER OPERATOR, CMP #### [facility] [address] [place] [address] Josef Xiomara Chloride [Moles/Vol] 104 mmol/L Normal 98-107 [facility] Comment on above: Performed By: #### B BREAD WRAPPER OPERATOR, CMP #### [facility] [address] [place] [address] Josef Xiomara CO2 [Moles/Vol] 29.1 mmol/L Normal 22.0-30.0 [facility] Comment on above: Performed By: #### B BREAD WRAPPER OPERATOR, CMP #### [facility] [address] [place] [address] Josef Xiomara Creatinine [Mass/Vol] 0.59 mg/dL Normal 0.52-1.04 [facility] Comment on above: Performed By: #### B BREAD WRAPPER OPERATOR, CMP #### [facility] [address] [place] [address] Josef Xiomara EGFR-AF MALAWIAN >60 Normal >=60 [facility] Comment on above: Performed By: #### B BREAD WRAPPER OPERATOR, CMP #### [facility] [address] [place] [address] Josef Xiomara EGFR-NON AF MALAWIAN >60 Normal >=60 [facility] Comment on above: Performed By: #### B BREAD WRAPPER OPERATOR, CMP #### [facility] [address] [place], [place] [address] Josef Xiomara Globulin (S) [Mass/Vol] 3.3 g/dL Normal [facility] Comment on above: Performed By: #### B BREAD WRAPPER OPERATOR, CMP #### [facility] [address] [place] [id number] Josef Xiomara Glucose [Mass/Vol] 72 mg/dL Critically low 74-106 [facility] Comment on above: Performed By: #### B BREAD WRAPPER OPERATOR, CMP #### [facility] [address] [place] [address] Josef Xiomara Potassium [Moles/Vol] 4.0 mmol/L Normal 3.4-5.0 [facility] Comment on above: Performed By: #### B BREAD WRAPPER OPERATOR, CMP #### [facility] [address] [place] [address] Josef Xiomara Protein [Mass/Vol] 7.1 g/dL Normal 6.1-8.2 [facility] Comment on above: Performed By: #### B BREAD WRAPPER OPERATOR, CMP #### [facility] [address] [place] [address] Josef Xiomara Sodium [Moles/Vol] 141 mmol/L Normal 137-145 [facility] Comment on above: Performed By: #### B BREAD WRAPPER OPERATOR, CMP #### [facility] [address] [place] [address] Josef Xiomara Urea nitrogen [Mass/Vol] 20.0 mg/dL Critically high 7.0-17.0 [facility] Comment on above: Performed By: #### B BREAD WRAPPER OPERATOR, CMP #### [facility] [address] [place] [id number] Josef Xiom[place] Urea nitrogen/Creatinine [Mass ratio] 33.9 mg/mg Normal [facility] Comment on above: Performed By: #### B BREAD WRAPPER OPERATOR, CMP #### [facility] [address] [place] [id number] Josef [place] CREATININEon 07-25-2020 Creatinine [Mass/Vol] 0.63 mg/dL Normal 0.52-1.04 [facility] Comment on above: Performed By: #### C ZEYAD #### [facility] [address] [place], [place] [address] Josef Solano EGFR-AF MALAWIAN >60 Normal >=60 [facility] Comment on above: Performed By: #### C ZEYAD #### [facility] [address] [place], [place] [address] Josef Solano EGFR-NON AF MALAWIAN >60 Normal >=60 [facility] Comment on above: Performed By: #### C ZEYAD #### [facility] [address] [place], [place] [address] PELVIS W CONon 07-25-2020 [...] by: ALLEY ALLEN Date: 2020-07-25 14:11 Normal [facility] Vital Signs Date Time Vital Sign Value Performing Clinician Facility 12-06-2023 10:57-0400 Body height 152.4 cm Jatin Heart Buddy Phone: [facility] 12-06-2023 10:57-0400 Body mass index (BMI) [Ratio] 29.88 kg/m2 Jatin Hayden DO Work Phone: [facility] 12-06-2023 10:57-0400 Body weight 69.4 kg Jatin Hayden [employer] Work Phone: [facility] 12-06-2023 10:57-0400 Diastolic blood pressure 68 mm[Hg] Jatin Hayden [employer] Work Phone: [facility] 12-06-2023 10:57-0400 Systolic blood pressure 122 mm[Hg] Jatin Hayden [employer] Work Phone: [facility] 11-16-2023 15:08-0400 Blood Pressure Location [facility] 11-16-2023 15:08-0400 Diastolic blood pressure 76 mm[Hg] Hayes NILL [facility] 11-16-2023 15:08-0400 Heart rate 70 /min Hayes NILL [facility] 11-16-2023 15:08-0400 Respiratory rate 16 /min Hayes NILL [facility] 11-16-2023 15:08-0400 Systolic blood pressure 136 mm[Hg] Hayes NILL [facility] Encounters Encounter Date Encounter Type Care Provider Facility Start: 12-06-2023 End: 12-06-2023 Bamboo flowsheet Jatin Hayden [employer] Work Phone: [facility] Start: 12-06-2023 End: 12-06-2023 Bamboo flowsheet Jatin Hayden [employer] Work Phone: [facility] Start: 12-06-2023 End: 12-06-2023 Office outpatient new 45 minutes Jatin Hayden [employer] Work Phone: [facility] Comment on above: Biliary dyskinesia ( Primary Dx) Start: 12-06-2023 End: 12-06-2023 ambulatory JATIN HAYDEN Not Available Start: 11-24-2023 End: 11-24-2023 ambulatory Hayes PEÑA Facility:CD:[id number] Start: 11-16-2023 End: 11-16-2023 ambulatory Hayes PEÑA Facility:[facility] Start: 11-16-2023 End: 11-16-2023 Patient encounter procedure Hayes PEÑA [facility] [place] Start: 09-14-2023 End: 09-14-2023 ambulatory MD Katelyn Kaufman Work Phone: [facility] Work Phone: Start: 09-14-2023 End: 09-14-2023 Discharged Recurring MD Katelyn Kaufman Work Phone: [facility] [place] Start: 07-04-2021 End: 07-05-[address] KATELYN KAUFMAN Facility:[facility] Start: 03-10-2021 End: 03-11-[address] KATELYN KAUFMAN Facility:[facility] Start: 09-09-2020 Encounter for preprocedural laboratory examination DR HAYES PEÑA [facility] Start: 09-04-2020 End: 09-04-[address] HAYES PEÑA Facility:[facility] Start: 08-31-2020 End: 09-01-[address] HAYES PEÑA Facility:[facility] Start: 08-31-2020 End: 09-01-2020 Encounter for preprocedural laboratory examination DR HAYES PEÑA Facility:[facility] Start: 08-30-2020 Encounter for preprocedural cardiovascular examination DR HAYES PEÑA [facility] Start: 08-22-2020 End: 08-23-[address] HAYES PEÑA Facility:[facility] Start: 07-25-2020 End: 07-26-[address] HAYES PEÑA Facility:[facility] Start: 07-12-2020 End: 07-12-[address] ALLEY ALLEN Facility:[facility] Procedures Date Procedure Procedure Detail Performing Clinician Start: 09-04-2020 Repair of left ingui nal hernia Hayes PEÑA Start: 04-21-2019 Colonoscopy and biop sy of colon Hayes PEÑA Comment on above: Hyperplastic polyp Start: 09-23-2016 Mammography Jatin robertson DO Work Phone: Start: 02-23-2004 Colonoscopy normal (finding) Hayes PEÑA Bilateral replacemen t of knee joints Hayes PEÑA Decompression of med violetta nerve Hayes PEÑA Tonsillectomy primary/secondary Hayes PEÑA Total abdominal hysterectomy Hayes PEÑA Plan of Treatment Date Care Activity Detail Author Start: 12-06-2023 End: 12-06-2023 Patient encounter procedure 12/06/2023 11:00 AM EDT Office Visit [facility] [address] [place] [address] Jatin Hayden, [address] [place] [address] Arrived [facility] Comment on above: Arrived Start: 10-24-2023 Influenza vaccination Influenza Vacc ine (#1) [facility] Start: 2018 Pneumococcal Vaccine : 65+ Years (1 of 1 - PCV) Pneumococcal Vaccine: 65+ Years (1 of 1 - PCV) [facility] Start: 09-23-2017 Screening for malign ant neoplasm of breast Mammogram [facility] Start: 1955 Screening for malign ant neoplasm of colon [facility] Immunizations Immunization Date Immunization Notes Care Provider Fa cility 01-07-2018 influenza virus vaccine, unspecified formulation Jatin Hayden DO Work Phone: [facility] NEGATED: Highlighted row has not occurred!04-12-2019 influenza virus vaccine, live, attenuated, for intranasal use [facility] Payers Date Payer Category Payer Self-pay [id number] 2023 Medicare (Managed Care) [facility] [id number] 2023 Private Health Insurance [id number] 1961 Medicare [id number] 1961 Medicare [id number] 1955 Unknown [id number] [id number]. 593 1955 Unknown [id number] [id number]. 593 1955 Unknown [id number] [id number]. 593 1955 Unknown [id number] 2.16.840.1.593636.3.579.2. 593 1955 Unknown [id number] 2.16.840.1.504154.3.579.2. 593 1955 Unknown [id number] 2.16.840.1.784818.3.579.2. 593 1955 Unknown [id number] 2.16.840.1.390967.3.579.2. 593 1955 Unknown [id number] 2.16.840.1.411601.3.579.2. 727 1955 Unknown [id number] 2.16.840.1.511612.3.579.2. 727 1955 Unknown [id number] 2.16.840.1.119210.3.579.2. 1259 Medicare Medicare [id number] Unknown [id number] [id number]. 531 Social History Date Type Detail Facility Tobacco smoking status NHIS Unknown if ever smoked [facility] Work Phone: Start: 1955 Sex Assigned At Female F [facility] Start: 11-16-2023 Tobacco smoking status Never smoked tobacco (finding) [facility] [place] Tobacco smoking status Never [facility] Sex Assigned At Female [facility] Tobacco smoking status [facility] Tobacco smoking consumption unknown [facility] Start: 1955 Sex assigned at Not on file N [facility] Healthcare Functional Status Date Assessment Result Facility 11-16-2023 Functional Status N/A [facility] History of Present illness Narrative 12-06-2023 Jatin Hayden DO - 12/06/2023 11:00 AM EDT Note Date & Type Note Facility 12-06-2023 History of Presen t illness Narrative General Surgery H&P Shanique Camargo 1955 Shanique Camargo is a 67 y.o. female presents with chief complaint of Abdominal Pain (Patient presents with abdominal pain and flank pain. Since August. Nausea Acidic and greasy foods upset stomach. Patient had abdominal ultrasound and hida scan.) Denies current abdominal pain. Denies hx of excessive weight loss. Denies fevers, chills, or sweats. Denies nausea or vomiting. Discussed surgery and risks for robotic laparoscopic cholecystectomy procedure. Patient would like to proceed with surgery. Imaging reviewed with patient, CT A/P, HIDA scan, UGI. HIDA shows biliary dyskinesia. UGI revealed tertiary non-propulsive contractions. SUBJECTIVE: MEDICATIONS: ALLERGIES Current Outpatient Medications Medication Instructions hyoscyamine (ANASPAZ) 0.125 mg, Every 4 hours PRN ondansetron ODT (ZOFRAN-ODT) 4 mg, Every 8 hours PRN pantoprazole (PROTONIX) 40 mg, Daily Allergies Allergen Reactions Levofloxacin Other Nsaids GI intolerance Sucralfate GI intolerance PAST MEDICAL HISTORY: SOCIAL HISTORY SURGICAL HISTORY: History reviewed. No pertinent past medical history. History reviewed. No pertinent surgical history. No family history on file. Allergies Allergen Reactions Levofloxacin Other Nsaids GI intolerance Sucralfate GI intolerance History reviewed. No pertinent surgical history. Tobacco Use: Not on file Alcohol Use: Not on file Depression: Not on file Physical Activity: Not on file REVIEW OF SYMPTOMS: Review of Systems All other systems reviewed and are negative. 10 systems were reviewed. Positives noted above. Remainder are negative per CMS guidelines OBJECTIVE: Visit Vitals BP 122/68 Ht 5' Wt 153 lb BMI 29.88 kg/m BSA 1.71 m Physical Exam Vitals reviewed. General: AAOx3, NAD Head: atraumatic normocephalic Neck: trachea midline. No masses or lymphadenopathy Heart: Regular rate and rhythm Lungs: equal chest rise and fall, non labored breathing Abdomen: soft, nontender, and non distended Ext: motor 5/5 all extremities with no gross deformities Psych: alert and oriented, behavior appropriate Imaging reviewed with patient, CT A/P, HIDA scan, UGI. ASSESSMENT AND PLAN: Assessment/Plan Diagnoses and all orders for this visit: Biliary dyskinesia Patient informed of the risks of robotic laparoscopic cholecystectomy procedure which include but not limited to bleeding, scarring, damage to nearby structures, chronic pain, wound healing issues, possible need for more procedures and risks of anesthesia. Patient understood risks and signed informed consent. Will schedule at patient's earliest convenience. Thank you, Reese Hayden DO documented in this encounter [facility] Clinical Note 11-16-2023 Note Date & [...] Dis Tab, 4 (more content not included)... [facility] Comment on above: Result Comment: Elec tronically Signed By: CASEY DA SILVA, Hayes Goodwin\Date and Time Signed: 11/16/23 15:49 EDT Clinical [...] by: EDMOND CAAL Date: 2021-03-10 13:48 [facility] Clinical Note 09-04-2020 Note Date & [...] the Recovery Room in good condition. cc:Dr. Kuafman. [facility] Signed and Approved by: DR HAYES PEÑA . 09/06/2020 08:06:00 [facility] Clinical Note 07-12-2020 Note Date & Type [...] authenticated by: ALLEY ALLEN Date: 2020-07-12 13:58 [facility] Evaluation + Plan note Note Date & Type Note Facility Evaluation + Plan note No data available for this section [facility] Evaluation note Note Date & Type Note Facility Evaluation note No assessment information availa [facility] Work Phone: Evaluation note Note Date & Type Note Facility Evaluation note Diagnosis Biliary dyskinesia- Primary Other specified disorder of gallbladder documented in this encounter [facility] Discharge instructions Note Date & Type Note Facility Hospital Discharge instructions No data available for this section [facility] Progress note Note Date & Type Note Facility Progress note No data available for this section [facility] Summary Purpose Family History No Family History Records FoundNo Family History Records Found No data available for this section No Family History Records FoundNo Family History Records Found Advance Directives Advance Directive Response Recorded Date/ Time Advance Directives No December 7:43pm Chief Complaint and Reason for Visit Chief Complaint Sciatica Additional Source Comments INFORMATION SOURCE (unrecogn ized section and content) DATE CREATED AUTHOR 07/12/2021 [facility] DATE CREATED AUTHOR AUTHOR'S ORGANIZ ATION 11/07/2023 [facility] DATE CREATED AUTHOR AUTHOR'S ORGANIZ ATION 12/06/2023 [facility] DATE CREATED AUTHOR AUTHOR'S ORGANIZ ATION 12/07/2023 [facility] EPIC Care Teams (unrecognized sec tion and content) Team Status: Active Member Role Status Dates Katelyn Kaufman MD Primary Care Provider Active Team Status: Inactive Member Role Status Dates Katelyn Kaufman MD Primary Care Provider Active Start: September 14, 2023 End: September 14, 2023 Jas Kelly DO Attending Provider Active S tart: September 14, 2023 End: September 14, 2023 Computer Forensic Examiner Relationship Specialty Start Date End Date Katelyn Kaufman MD [address] [place] [address] PCP - General Family Medicine 12/06/23 Computer Forensic Examiner Relationship Specialty Start Date End Date Katelyn Kaufman MD [address] [place] [address] PCP - General Family Medicine 12/06/23 Goals (unrecognized section and content) Goals may be documented in a n alternate section No data available for this section Reason for Visit (unrecogniz ed section and content) Reason Comments Abdominal Pain Patient presents wit h abdominal pain and flank pain. Since August. Nausea Acidic and greasy foods upset stomach. Patient had abdominal ultrasound and hida scan. FOR RECORDS PERTAINING TO PATIENTS WHO ARE [...] BE BASED ON THE PRIMARY CLINICAL RECORDS. [employer] [facility]. provides no warranty or guarantee of the accuracy or completeness of information in this document.
--- NOTE | 2023-12-10 14:01 | ECG_ITS ---
[facility] Test Date: 2023-12-10 Pat Name: MARY JO ROBLES Department: Room: - Gender: Female [employer]: : 1955 Requested By: KATELYN YOON Order Number: [id number] Reading MD: NII LAURENT Measurements Intervals [place] Rate: 67 P: 35 HI: 144 QRS: 44 QRSD: 87 T: 30 QT: 371 QTc: 394 Interpretive Statements SINUS RHYTHM Compared to ECG 08/22/2020 11:34:46 Right-axis deviation no longer present Electronically Signed On 12-12-2023 12:39:01 EDT by NII LAURENT
== END 2023-12-10 13:22 | disposition home or self-care (01) ==
LOC: PST 13:23
PROVIDERS: PCP Family Medicine; Visit Provider Surgery
DX: Z01.810 Encounter for preprocedural cardiovascular examination (principal); K82.8 Other specified diseases of gallbladder
CPT/HCPCS: 93005

== ENCOUNTER 2023-12-14 09:25 | Day surgery (SDC) | payer MEDICARE, SELFPAY ==
[2023-12-10 14:03] VITALS: BP 118/83; PULSE 71; TEMP 36.9; O2SAT 100; BMI 27.9
[2023-12-14] VITALS (20 sets, daily range): BP systolic 121–183; BP diastolic 64–93; PULSE 53–85; TEMP 36.4–36.7; O2SAT 92–99; BMI 27.1
--- OUTSIDE RECORDS SUMMARY | 2023-12-14 09:29 | XMS_ITS | CCD ---
Author Organization [facility] Care Team Providers Care Electric Serviceman Name Role Phone DR ALLEY ALLEN Consulting [...] Care Provider DO Jas Kelly Attending Provider [phone] Katelyn Kaufman Primary Care Unavailable Jas Kelly Attending Unavailable Jas Kelly Admitting Unavailable Katelyn Kaufman Primary Care Physician [phone] Hayes PEÑA Attending Unavailable Katelyn Kaufman Referring Unavailable Hayes PEÑA Attending Unavailable JATIN HAYDEN Attending Unavailable KATELYN KAUFMAN Referring Unavailable Katelyn Kaufman MD Primary Care Provider [phone] Allergies Allergy Classification Reported Allergen(s) Allergy Type Date of Onset Reaction(s) Facility (4 sources) levoFLOXacin; Translations: [levofloxacin] Drug Allergy 4 Muscle pain (finding), Other [facility] [place] (2 sources) Non-steroidal anti-inflammato ry agent Propensity [...] for choosing us for your care. Normal [facility] MG MAMM SCREEN 3D TERA CADon 07-04-2021 MG MAMM SCREEN 3D TERA CAD Patient: SHANIQUE CAMARGO Exam Date: 07/04/2021 : 1955 Gender:F Ordering : DR KATELYN KAUFMAN . Admission #: [id number] Family : Order #: [id number] CLICK HERE TO VIEW EXAM RADIOLOGY REPORT [...] colon cancer at age 70. LOCATION: [facility] BREAST COMPOSITION: Almost entirely fatty. [...] MD on 07/04/2021 at 15:03 Normal [facility] Covid-19 PCR (CVDTB)on 08-22 SARS-CoV-2 (COVID-19) RNA JESSENIA+probe Ql (Unsp spec) Not detected Normal NOT DETECTED [facility] Comment on above: Result Comment: This test is not yet approved or cleared by the [place] FDA. When there are no FDA-approved or cleared tests available, and other criteria are met, FDA can make tests available under an emergency access mechanism called an Emergency Use Authorization (EUA). The EUA for this test is supported by the Welding Pantograph Operator of Health and Human Service's (HHS's) declaration [...] SARS-CoV-2. Performed By: #### C VDTB #### [facility] [address] [place], [place] [address] Josefbrandt Solano BNPon 08-22-2020 Natriuretic peptide B (Bld) [Mass/Vol] 168.0 pg/mL Normal <=900.0 [facility] Comment on above: Performed By: #### B ELECTRICIAN LOCOMOTIVE, CMP #### [facility] [address] [place], [place] [address] Josefbrandt Solano CBC AUTO DIFFon 08-22-2020 BASO # 0.0 103/ul Normal 0.0-0.1 [facility] Comment on above: Performed By: #### C BC ####[facility] [address] [place] [address]Gerken [place] Basophils/100 WBC (Bld) 0.6 % Normal 0.2-2.0 [facility] Comment on above: Performed By: #### C BC ####[facility] [address] [place] [address]Gerken [place] EO # 0.1 103/ul Normal 0.0-0.7 [facility] Comment on above: Performed By: #### C BC ####[facility] [address] [place] [address]Gerbrandt Solano Eosinophils/100 WBC (Bld) 0.9 % Normal 0.9-7.0 [facility] Comment on above: Performed By: #### C BC ####[facility] Y[address] [place] Erythrocyte distribution width (RBC) [Ratio] 12.7 % Normal 11.0-15.0 [facility] Comment on above: Performed By: #### C BC ####[facility] [address] [place] [address]Josef Solano Hematocrit (Bld) [Volume fraction] 40.3 % Normal 36.0-48.0 [facility] Comment on above: Performed By: #### C BC ####[facility] [address] [place] [address]Gerbrandt Solano Hemoglobin (Bld) [Mass/Vol] 12.9 g/dL Normal 12.0-16.0 [facility] Comment on above: Performed By: #### C BC ####[facility] Y[address] [place] IG # 0.01 10e3/ul Normal 0.00-0.03 [facility] Comment on above: Performed By: #### C BC ####[facility] K[address]aj[address] [place] IG % 0.1 % Normal 0.0-0.5 [facility] Comment on above: Performed By: #### C BC ####[facility] [address] [place] [address] [place] LYMPH # 2.4 103/ul Normal 1.2-3.8 [facility] Comment on above: Performed By: #### C BC ####[facility] [address] [place] [address] [place] Lymphocytes/100 WBC (Bld) 34.5 % Normal 20.5-60.0 [facility] Comment on above: Performed By: #### C BC ####[facility] [address] [place] [address] [place] MANUAL DIFF REQ NO Normal [facility] Comment on above: Performed By: #### C BC ####[facility] [address] [place] [address] Xi[place] MCH (RBC) [Entitic mass] 30.0 pg Normal 26.7-34.0 [facility] Comment on above: Performed By: #### C BC ####[facility] [address] [place] [address] Xi[place] MCHC (RBC) [Mass/Vol] 32.0 g/dL Normal 29.9-35.2 [facility] Comment on above: Performed By: #### C BC ####[facility] [address] [place] [address] [place] MCV (RBC) [Entitic vol] 93.7 fL Normal 81.0-99.0 [facility] Comment on above: Performed By: #### C BC ####[facility] [address] [place], [place] [address]Wbxozv [place] MONO # 0.7 103/ul Normal 0.3-0.8 [facility] Comment on above: Performed By: #### C BC ####[facility] [address] [place], [place] [address]Cdpqtd [place] Monocytes/100 WBC (Bld) 9.3 % Normal 1.7-12.0 [facility] Comment on above: Performed By: #### C BC ####[facility] [address] [place] [address]Djqvqv [place] NEUT # 3.8 103/ul Normal 1.4-6.5 [facility] Comment on above: Performed By: #### C BC ####[facility] [address] [place], [place] [address]Gerken Xiomara Neutrophils/100 WBC (Bld) 54.6 % Normal 43.0-75.0 [facility] Comment on above: Performed By: #### C BC ####[facility] [address] [place] [address]Jfvcua [place] Platelet mean volume (Bld) [Entitic vol] 11.0 fL Normal 9.5-13.5 [facility] Comment on above: Performed By: #### C BC ####[facility] [address] [place], [place] [address]Gerken [place] PLT 211 103/ul Normal 150-450 [facility] Comment on above: Performed By: #### C BC ####[facility] [address] [place] [address]Xparoj [place] RBC 4.30 106/ul Normal 4.20-5.40 [facility] Comment on above: Performed By: #### C BC ####[facility] [address] [place], [place] [address]Gerken [place] WBC 7.0 103/ul Normal 4.0-11.0 [facility] Comment on above: Performed By: #### C BC ####[facility] [address] [place], [place] [address]Yggciz Karen D-DIMERon 08-22-2020 D-DIMER 0.25 mg/L FEU Normal 0.19-0.50 [facility] Comment on above: Performed By: #### D DIM #### [facility] [address] [place], [place] [address] Josefbrandt Solano D-DIMER COMMENTS SEE BELOW Normal [facility] Comment on above: Result Comment: Incr [...] hospitalization. Performed By: #### D DIM #### [facility] [address] [place], [place] [id number] Josef Solano PROF 14(COMP METB)on 021 Albumin [Mass/Vol] 3.8 g/dL Normal 3.5-5.0 [facility] Comment on above: Performed By: #### B ELECTRICIAN LOCOMOTIVE, CMP #### [facility] [address] [place], [place] [address] Josefbrandt Solano Albumin/Globulin [Mass ratio] 1.2 {ratio} Normal [facility] Comment on above: Performed By: #### B ELECTRICIAN LOCOMOTIVE, CMP #### [facility] [address] [place], [place] [address] Josef Xiomara ALP [Catalytic activity/Vol] 81 U/L Normal 38-126 [facility] Comment on above: Performed By: #### B ELECTRICIAN LOCOMOTIVE, CMP #### [facility] [address] [place], [place] [address] Josef Xiomara ALT [Catalytic activity/Vol] 22 U/L Normal 9-52 [facility] Comment on above: Performed By: #### B ELECTRICIAN LOCOMOTIVE, CMP #### [facility] [address] [place], [place] [address] Josef Xiomara Anion gap [Moles/Vol] 11.9 mmol/L Normal [facility] Comment on above: Performed By: #### B ELECTRICIAN LOCOMOTIVE, CMP #### [facility] [address] [place] [address] Josef Xiomara AST [Catalytic activity/Vol] 18 U/L Normal 14-36 [facility] Comment on above: Performed By: #### B ELECTRICIAN LOCOMOTIVE, CMP #### [facility] [address] [place] [address] Josef Xiomara Bilirubin [Mass/Vol] 0.4 mg/dL Normal 0.2-1.3 [facility] Comment on above: Performed By: #### B ELECTRICIAN LOCOMOTIVE, CMP #### [facility] [address] [place] [address] Josef Xiomara Calcium [Mass/Vol] 8.7 mg/dL Normal 8.4-10.2 [facility] Comment on above: Performed By: #### B ELECTRICIAN LOCOMOTIVE, CMP #### [facility] [address] [place] [address] Josef Xiomara Chloride [Moles/Vol] 104 mmol/L Normal 98-107 [facility] Comment on above: Performed By: #### B ELECTRICIAN LOCOMOTIVE, CMP #### [facility] [address] [place] [address] Josef Xiomara CO2 [Moles/Vol] 29.1 mmol/L Normal 22.0-30.0 [facility] Comment on above: Performed By: #### B ELECTRICIAN LOCOMOTIVE, CMP #### [facility] [address] [place] [address] Josef Xiomara Creatinine [Mass/Vol] 0.59 mg/dL Normal 0.52-1.04 [facility] Comment on above: Performed By: #### B ELECTRICIAN LOCOMOTIVE, CMP #### [facility] [address] [place] [address] Josef Xiomara EGFR-AF NEPALESE >60 Normal >=60 [facility] Comment on above: Performed By: #### B ELECTRICIAN LOCOMOTIVE, CMP #### [facility] [address] [place] [address] Josef Xiomara EGFR-NON AF NEPALESE >60 Normal >=60 [facility] Comment on above: Performed By: #### B ELECTRICIAN LOCOMOTIVE, CMP #### [facility] [address] [place], [place] [address] Josef Xiomara Globulin (S) [Mass/Vol] 3.3 g/dL Normal [facility] Comment on above: Performed By: #### B ELECTRICIAN LOCOMOTIVE, CMP #### [facility] [address] [place] [id number] Josef Xiomara Glucose [Mass/Vol] 72 mg/dL Critically low 74-106 [facility] Comment on above: Performed By: #### B ELECTRICIAN LOCOMOTIVE, CMP #### [facility] [address] [place] [address] Josef Xiomara Potassium [Moles/Vol] 4.0 mmol/L Normal 3.4-5.0 [facility] Comment on above: Performed By: #### B ELECTRICIAN LOCOMOTIVE, CMP #### [facility] [address] [place] [id number] Josef Xiomara Protein [Mass/Vol] 7.1 g/dL Normal 6.1-8.2 [facility] Comment on above: Performed By: #### B ELECTRICIAN LOCOMOTIVE, CMP #### [facility] [address] [place] [address] Josef Xiomara Sodium [Moles/Vol] 141 mmol/L Normal 137-145 [facility] Comment on above: Performed By: #### B ELECTRICIAN LOCOMOTIVE, CMP #### [facility] [address] [place] [id number] Josef Xiomara Urea nitrogen [Mass/Vol] 20.0 mg/dL Critically high 7.0-17.0 [facility] Comment on above: Performed By: #### B ELECTRICIAN LOCOMOTIVE, CMP #### [facility] [address] [place] [id number] Josef Xiomara Urea nitrogen/Creatinine [Mass ratio] 33.9 mg/mg Normal [facility] Comment on above: Performed By: #### B ELECTRICIAN LOCOMOTIVE, CMP #### [facility] [address] [place] [address] Josef Xiomara CREATININEon 07-25-2020 Creatinine [Mass/Vol] 0.63 mg/dL Normal 0.52-1.04 [facility] Comment on above: Performed By: #### C ZEYAD #### [facility] [address] [place], [place] [address] Josef Solano EGFR-AF NEPALESE >60 Normal >=60 [facility] Comment on above: Performed By: #### C ZEYAD #### [facility] [address] [place], [place] [address] Josef Solano EGFR-NON AF NEPALESE >60 Normal >=60 [facility] Comment on above: Performed By: #### C ZEYAD #### [facility] [address] [place], [place] [address] PELVIS W CONon 07-25-2020 [...] ALLEY ALLEN Date: 2020-07-25 14:11 Normal [facility] Vital Signs Date Time Vital Sign Value Performing Clinician Facility 12-06-2023 10:57-0400 Body height 152.4 cm Jatin [employer] Phone: [facility] 12-06-2023 10:57-0400 Body mass index (BMI) [Ratio] 29.88 kg/m2 Jatin Hayden DO Work Phone: [facility] 12-06-2023 10:57-0400 Body weight 69.4 kg Jatin Hayden [employer] Work Phone: [facility] 12-06-2023 10:57-0400 Diastolic blood pressure 68 mm[Hg] Jatin Hayden [employer] Work Phone: [facility] 12-06-2023 10:57-0400 Systolic blood pressure 122 mm[Hg] Jatin Hayden [employer] Work Phone: [facility] 11-16-2023 15:08-0400 Blood Pressure Location RiffynL [facility] 11-16-2023 15:08-0400 Diastolic blood pressure 76 mm[Hg] Hayes NILL [facility] 11-16-2023 15:08-0400 Heart rate 70 /min Hayes NILL [facility] 11-16-2023 15:08-0400 Respiratory rate 16 /min Hayes NILL [facility] 11-16-2023 15:08-0400 Systolic blood pressure 136 mm[Hg] Hayes NILL [facility] Encounters Encounter Date Encounter Type Care Provider Facility Start: 12-06-2023 End: 12-06-2023 Bamboo flowsheet Jatin Hayden [employer] Work Phone: [facility] Start: 12-06-2023 End: 12-06-2023 Bamboo flowsheet Jatin Hayden [employer] Work Phone: [facility] Start: 12-06-2023 End: 12-06-2023 Office outpatient new 45 minutes Jatin Hayden [employer] Work Phone: [facility] Comment on above: Biliary dyskinesia ( Primary Dx) Start: 12-06-2023 End: 12-06-2023 ambulatory JATIN HAYDEN Not Available Start: 11-24-2023 End: 11-24-2023 ambulatory Hayes PEÑA Facility:CD:[id number] Start: 11-16-2023 End: 11-16-2023 ambulatory Hayes PEÑA Facility:[facility] Start: 11-16-2023 End: 11-16-2023 Patient encounter procedure Hayes PEÑA [facility] [place] Start: 09-14-2023 End: 09-14-2023 ambulatory MD Katelyn Kaufman Work Phone: [facility] Work Phone: Start: 09-14-2023 End: 09-14-2023 Discharged Recurring MD Katelyn Kaufman Work Phone: [facility] [place] Start: 07-04-2021 End: 07-05-[address] KATELYN KAUFMAN Facility:[facility] Start: 03-10-2021 End: 03-11-[address] KATELYN KAUFMAN Facility:[facility] Start: 09-09-2020 Encounter for preprocedural laboratory examination DR HAYES PEÑA [facility] Start: 09-04-2020 End: 09-04-[address] HAYES PEÑA Facility:[facility] Start: 08-31-2020 End: 09-01-[address] HAYES PEÑA Facility:[facility] Start: 08-31-2020 End: 09-01-2020 Encounter for preprocedural laboratory examination DR HAYES PEÑA Facility:[facility] Start: 08-30-2020 Encounter for preprocedural cardiovascular examination DR HAYES PEÑA [facility] Start: 08-22-2020 End: 08-23-[address] HAYES [...] [address] [place] [address] Jatin Hayden, [address] [place] [address] Arrived [facility] Comment on above: Arrived Start: 10-24-2023 Influenza vaccination Influenza Vacc ine (#1) [facility] Start: 2018 Pneumococcal Vaccine : 65+ Years (1 of 1 - PCV) Pneumococcal Vaccine: 65+ Years (1 of 1 - PCV) [facility] Start: 09-23-2017 Screening for malign ant neoplasm of breast Mammogram [facility] Start: 1955 Screening for malign ant neoplasm of colon [facility] Immunizations Immunization Date Immunization Notes Care Provider Fa cility 01-07-2018 influenza virus vaccine, unspecified formulation Jatin Hayden DO Work Phone: [facility] NEGATED: Highlighted row has not occurred!04-12-2019 influenza virus vaccine, live, attenuated, for intranasal use Hayes DURANTPaul [facility] Payers Date Payer Category Payer Self-pay [id number] 2023 Medicare (Managed Care) [facility] [id number] 2023 Private Health Insurance [id number] 1961 Medicare [id number] 1961 Medicare [id number] 1955 Unknown [id number] [id number]. 593 1955 Unknown [id number] [id number]. 593 1955 Unknown [id number] 2.16.840.1.629449.3.579.2. 593 1955 Unknown [id number] 2.16.840.1.940470.3.579.2. 593 1955 Unknown [id number] 2.16.840.1.464930.3.579.2. 593 1955 Unknown [id number] 2.16.840.1.003820.3.579.2. 593 1955 Unknown [id number] 2.16.840.1.542316.3.579.2. 593 1955 Unknown [id number] 2.16.840.1.554647.3.579.2. 727 1955 Unknown [id number] 2.16.840.1.822529.3.579.2. 727 1955 Unknown [id number] 2.16.840.1.733907.3.579.2. 1259 Medicare Medicare [id number] Unknown [id number] [id number]. 531 Social History Date Type Detail Facility Tobacco smoking status NHIS Unknown if ever smoked [facility] Work Phone: Start: 1955 Sex Assigned At Female F [facility] Start: 11-16-2023 Tobacco smoking status Never smoked tobacco (finding) [facility] [place] Tobacco smoking status Never [facility] Sex Assigned At Female [facility] Tobacco smoking status MNIS Tobacco smoking consumption unknown [facility] Start: 1955 Sex assigned at Not on file [place] [facility] Functional Status Date Assessment Result Facility 11-16-2023 Functional Status N/A [facility] History of Present illness Narrative 12-06-2023 [...] Reese Hayden DO documented in this encounter [facility] Clinical Note 11-16-2023 Note Date [...] Dis Tab, 4 (more content not included)... [facility] Comment on above: Result Comment: Elec tronically [...] authenticated by: EDMOND CAAL Date: 2021-03-10 13:48 [facility] Clinical Note 09-04-2020 Note Date & Type [...] [place] Signed and Approved by: DR HAYES PEÑA . 09/06/2020 08:06:00 [facility] Clinical Note 07-12-2020 Note Date & Type [...] authenticated by: ALLEY ALLEN Date: 2020-07-12 13:58 [facility] Evaluation + Plan note Note Date & Type Note Facility Evaluation + Plan note No data available for this section [facility] Evaluation note Note Date & Type Note Facility Evaluation note No assessment information availa [facility] Work Phone: Evaluation note Note Date & Type Note Facility Evaluation note Diagnosis Biliary dyskinesia- Primary Other specified disorder of gallbladder documented in this encounter [facility] Hospital Discharge instructions Note Date & Type Note Facility Hospital Discharge instructions No data available for this section [facility] Progress note Note Date & Type Note Facility Progress note No data available for this section [facility] Summary Purpose Family History No Family [...] and content) DATE CREATED AUTHOR 07/12/2021 [facility] DATE CREATED AUTHOR AUTHOR'S ORGANIZ ATION 11/07/2023 [facility] DATE CREATED AUTHOR AUTHOR'S ORGANIZ ATION 12/06/2023 [facility] DATE CREATED AUTHOR AUTHOR'S ORGANIZ ATION 12/07/2023 [facility] [employer] Care Teams (unrecognized sec tion and content) Team Status: Active Member Role Status Dates Katelyn Kaufman MD Primary Care Provider Active Team Status: Inactive Member Role Status Dates Katelyn Kaufman MD Primary Care Provider Active Start: September 14, 2023 End: September 14, 2023 Jas Kelly DO Attending Provider Active S tart: September 14, 2023 End: September 14, 2023 [employer] Relationship Specialty Start Date End Date Katelyn Kaufman MD [address] [place] [address] PCP - General Family Medicine 12/06/23 Electric Serviceman Relationship Specialty Start Date End Date Katelyn Kaufman MD [address] [place] [address] PCP - General Family Medicine 12/06/23 Goals [...] BE BASED ON THE PRIMARY CLINICAL RECORDS. [employer] provides no warranty or guarantee of the accuracy or completeness of information in this document.
[2023-12-14] MEDS: 0.9 % SODIUM CHLORIDE 500 ML 50 ML IV (09:54)
[2023-12-14] MEDS: INDOCYANINE GREEN 25 MG VIAL INJ (09:55)
[2023-12-14] MEDS: SCOPOLAMINE 1 MG/3 DAYS TRANSDERM PATCH 1 PATCH TD (10:13)
--- NOTE | 2023-12-14 10:35 | W.PM.PROCNOT ---
Date of procedure: 12/14/23 Pre-op diagnosis: biliary dyskinesia Post-op diagnosis: same as pre-op Procedure: Procedure: Robotic assisted laparoscopic cholecystectomy with TAP block The patient was brought to the operating room and placed supine on the operating room table. Cardiopulmonary monitoring was initiated. General anesthesia was induced without any complication. A time-out was performed. Pre-operative antibiotics were given. EPC cuffs were on the lower extremities. The abdomen was prepped and draped in the usual sterile fashion. The abdomen was entered approximately 12-14 cm distal to the xyophoid process and to the left of the midline. To do this a skin incision was made. A 5mm 0 degree laparoscope was then introduced using an optical access trocar. Pneumoperitoneum was then established through this trocar. Once pneumoperitoneum was created 2 additional 8 mm Da Lyubov ports were placed under direct visualization in the mid left and left lateral abdomen along the same line just superior to the umbilicus. A 4th 8mm RUQ port was placed then as well under direct visualization. The 5mm optiview port was then upsized to a 12mm robotic port under direct visualization. Prior to proceeding with the operation, an intraoperative TAP block was performed. ?Under visualization with the laparoscope, a needle was inserted percutaneously and, confirming that I was in the right plane, 30 mL of a mixture of Ropivacaine and Decadron were injected on both sides for a total of 60 ml. ?Good separation of the muscle planes was seen bilaterally indicating good placement of the anesthetic solution. The da Lyubov machine was then docked and a camera placed without complication. A monopolar hook was then placed in the right arm and a fenestrated bipolar grasper was placed in the left arm.? Filmy adhesions between the gallbladder and the omentum were lysed carefully with electrocautery.? The fundus of the gallbladder was grasped and directed towards the patient's right shoulder.? The infundibulum of the gallbladder was grasped with a bipolar grasper.? The gallbladder was positioned so that the cystic duct was at a right angle to the common bile duct in order to expose Calot's triangle. The peritoneum between the gallbladder and the liver was taken down by electrocautery to further mobilize the triangle.? The fibrous tissue was hooked with meticulous electrocautery.? Hook electrocautery was used to identify the cystic duct. The cystic duct was skeletonized with electrocautery.? Dissection was continued to locate the cystic artery.? The cystic artery was skeletonized with electrocautery. Critical view was obtained in the anterior and posterior window.? All fat and fibrous tissue was dissected from the cystohepatic triangle with careful hook electrocautery. The cystic plate of the liver was skeletonized with hook electrocautery.? Both the cystic duct and cystic artery were the only structures visualized entering into the gallbladder. Firefly was used to confirm identification of the cystic duct.? The critical view of safety was confirmed. The cystic duct was ligated with double Hemoclips, and then divided with Endoshears. The cystic artery was ligated with a Hemoclip and divided with Endoshears. The gallbladder was dissected from the liver bed with electrocautery.? The gallbladder was then placed into the Endopouch and delivered from the body at the umbilicus incision.? The bed was then inspected.? Hemostasis was achieved with electrocautery. The cystic duct and artery stumps were identified. All clips remained on both the cystic artery and the cystic duct stump.? No sign of bile leak or bleeding from the duct or artery stump. The da Lyubov was undocked from the patient.?The camera and the left umbilical port were removed from the abdomen. The umbilical fascia was closed with an 0 Vicryl suture with a needle nose suture passer and a Bull-Julito needle under direct visualization.? Working ports were removed.? All incisions were closed with simple subcuticular 4-0 Monocryl sutures.? Incisions were cleaned and dressed with Dermabond. All sponge, needle and instrument counts were correct prior to closure and the patient tolerated the procedure well without any apparent complication. The patient was extubated and then taken to recovery in stable condition. Anesthesia: JENNYFER Surgeon: Kamron Hayden Estimated blood loss (mL): 5 Pathology: other (gallbladder and contents ) Condition: stable Disposition: PACU
[2023-12-14] MEDS: CEFAZOLIN SODIUM/DEXTROSE,ISO 2 GM/50 ML PIGGYBACK IV (10:59)
[2023-12-14] MEDS: BUPIVACAINE LIPOSOME/PF 266 MG/13.3 ML VIAL INJ (11:32)
[2023-12-14] MEDS: 0.9 % SODIUM CHLORIDE 10 ML VIAL 20 ML INJ (11:32)
[2023-12-14] MEDS: BUPIVACAINE HCL 0.25% PF 25 MG/10 ML VIAL 20 ML INJ (11:32)
[2023-12-14] MEDS: LACTATED RINGER'S SOLUTION 1,000 ML 50 ML IV (11:54)
[2023-12-14] MEDS: KETOROLAC TROMETHAMINE 30 MG/ML VIAL 15 MG IVP (12:55)
[2023-12-14] MEDS: HYDROMORPHONE HCL 0.5 MG/0.5 ML SYRINGE IV (13:08)
[2023-12-14] MEDS: OXYCODONE HCL/ACETAMINOPHEN 5MG/325MG 1 TAB PO (13:34)
--- NOTE | 2023-12-14 15:14 | PC.NURSE ---
Patient's pain is tolerable but she is very dizzy. Patient wants to rest here for dizziness improvement. Happens every time with anesthesia per daughter.
== END 2023-12-14 15:47 | disposition home or self-care (01) ==
PROVIDERS: PCP Family Medicine; Visit Provider Surgery
PROC: (CPT 790; principal; 2023-12-14 10:25)
DX: K82.8 Other specified diseases of gallbladder (principal); K81.1 Chronic cholecystitis; Z90.710 Acquired absence of both cervix and uterus; K21.9 Gastro-esophageal reflux disease without esophagitis
CPT/HCPCS: 47562; 88304; J0131; J0665; J0690; J1100; J1171; J1885; J2405; J2704; J3010

== ENCOUNTER 2024-01-07 07:02 | Emergency (ER) | payer MEDICARE, SELFPAY ==
[2024-01-07 07:11] VITALS: BP 149/75; PULSE 83; TEMP 36.7; O2SAT 100; BMI 27.4
--- OUTSIDE RECORDS SUMMARY | 2024-01-07 07:17 | XMS_ITS | CCD ---
Author Organization [facility] LionWorksReplaced by [facility] Care Team Providers Care Plate Maker Zinc Name Role Phone ALEJANDRO, DR ALLEY Beasley [...] Care Unavailable WEST, DR EDMOND Humphries Consulting MD Katelyn Gil Primary Care Provider DO Jas Kelly Attending Provider Katelyn Kaufman Primary Care Physician Hayes PEÑA Attending Unavailable Katelyn Kaufman Referring Unavailable Hayes PEÑA Attending Unavailable Katelyn Kaufman MD Primary Care Provider [phone] DO Jatin Hayden Attending Provider aJtin Hayden Admitting Unavailable Jatin Hayden Attending Unavailable Jas Kelly Admitting Unavailable Jas Kelly Attending Unavailable Katelyn Kaufman Primary Care Unavailable JATIN HAYDEN Attending Unavailable KATELYN KAUFMAN Referring Unavailable JATIN HAYDEN Attending Unavailable Allergies Allergy Classification Reported Allergen(s) Allergy Type Date of Onset Reaction(s) Facility (7 sources) levoFLOXacin; Translations: [levofloxacin] Drug Allergy 4 Muscle pain (finding), Other [facility] [place] (5 sources) Non-steroidal anti-inflammato ry agent Propensity to adverse reactions 4 GI intolerance [facility] (5 sources) Sucralfate Drug Allergy 4 GI intolerance [facility] Medications Current Medications Medication Drug Class(es) Dates Sig (Normalized) Sig (Original) hyoscyamine sulfate 0.125 mg disintegrating oral tablet (6 sources) Start: 11-29-2023 take 1 tablet under [...] Ordered ondansetron 4 mg disintegrating oral tablet (6 sources) Serotonin-3 Receptor Antagonist Start: 11-03-2023 take [...] pantoprazole 40 mg delayed release oral tablet (6 sources) Proton Pump Inhibitor Start: 11-03-2023 take [...] PELV SWE[place] LUMP] Onset: 08-02-2020 Episodic Spondylosis; intervertebral disc disorders; other back problems (1 source) Sciatica, left side; Translations: [Sciatica, left side] Onset: 09-14-2023 Episodic Superficial injury; contusion (5 sources) Other superficial bite of left forearm, initial encounter; Translations: [Other superficial bite of right forearm, initial encounter] Onset: 07-16-2020 Episodic Unclassified (1 source) Patient encounter status 11-03-2023 Unclassified (1 source) Severe acute respiratory syndrome coronavirus 2 detected 11-03-2023 Results Test Name Value Interpretation Reference Range Facil ity Cody 12-14-2023 L Specimen: [id number] Received: 12/16/23 Status: LUIS Mitchell Num: [id number] Spec Type: Surgical Subm Dr: Jatin Hayden DO Tissues: A Gallbladder (GB) Procedures: HE, Gross/Micro L3 Age/ Patient Sex Location Account Attending Physician Shanique Camargo 67/F LABELL [id number] Jatin Hayden DO SPEC NUM: [id number] RECD: 12/16/23 STATUS: LUIS MITCHELL NUM: [id number] ROSENDO: 12/14/[address]: Jatin Hayden DO ENTERED: 12/16/[address]: Ifrah Combs SPEC TYPE: Surgical DEPT: KATY SHETTY ENTERED BY: [id number] RECV BY: [id number] ORDERED: HE, Gross/Micro L3 ORDERED: HE, Gross/Micro L3 Pathological Diagnosis Gallbladder, cholecystectomy: - Chronic cholecystitis. Clinical Information Biliary dyskinesia Gross Description The specimen is received in formalin with the patient's name and gallbladder and consists of a green intact gallbladder measuring 7.5 x 3.5 x 1.5 cm. The serosal surface is her-green, smooth, with roughened areas. The wall of the gallbladder measures 0.2 cm in thickness. The gallbladder is filled with a green bile. No calculi grossly identified within the gallbladder or container. The mucosal surface is green and velvety. Custom Feed Mill Operator Helper sections are submitted in cassette A1. Microscopic Description Microscopic examination is performed. Specimen: [id number] Received: 12/16/23 Status: LUIS Werneryadira Num: [id number] Spec Type: Surgical Subm Dr: Jatin Hayden DO Tissues: A Gallbladder (GB) Procedures: HE, Gross/Micro L3 Patient: Shanique Camargo [id number] (Continued) Specimen: [id number] Received: 12/16/23 (Continued) Signed (signature on file) Nghia Ramirez MD 12/21/236 Specimen: [id number] Received: 12/16/23 Status: LUIS Mitchell Num: [id number] Spec Type: Surgical Subm Dr: Jatin Hayden DO Tissues: A Gallbladder (GB) Procedures: Debo SALGUERO/Crystal L3 Patient: Shanique Camargo [id number] (Continued) Specimen: [id number] Received: 12/16/23 (Continued) CPT Codes 93581 Specimen: [id number] Received: 12/16/23 Status: LUIS Stephen Num: [id number] Spec Type: Surgical Subm Dr: Jatin Hayden DO Tissues: A Gallbladder (GB) Procedures: Debo SALGUERO/Crystal L3 Patient: Shanique Camargo [id number] (Continued) Signed (signature on file) Nghia Ramirez MD 12/21/23 1056 Normal [facility] Ambulatory Visit Summaryon 0 11-16-2023 Ambulatory Visit Summary Ambulatory Visit Summary SHANIQUE CAMARGO :1955 Visit Date:11/16/2023 Ambulatory Visit Instructions Your Care Team Attending Physician - CASEY DA SILVA, Hayes Beasley Primary Care Physician - Shae DA SILVA, Katelyn Referring Physician - Katelyn Kaufman MD This [...] for choosing us for your care. Normal [facility] MG MAMM SCREEN 3D TERA CADon 07-04-2021 MG MAMM SCREEN 3D TERA CAD Patient: SHANIQUE CAMARGO Exam Date: 07/04/2021 : 1955 Gender:F Ordering : DR KATELYN KAUFMAN . Admission #: [id number] Family : Order #: [id number] CLICK HERE TO VIEW EXAM RADIOLOGY REPORT [...] colon cancer at age 70. LOCATION: [facility] BREAST COMPOSITION: Almost entirely fatty. [...] MD on 07/04/2021 at 15:03 Normal [facility] Covid-19 PCR (CVDTBH)on 08-22 SARS-CoV-2 (COVID-19) RNA JESSENIA+probe Ql (Unsp spec) Not detected Normal NOT DETECTED [facility] Comment on above: Result Comment: This test is not yet approved or cleared by the [place] FDA. When there are no FDA-approved or cleared tests available, and other criteria are met, FDA can make tests available under an emergency access mechanism called an Emergency Use Authorization (EUA). The EUA for this test is supported by the Fitter Machinist of Health and Human Service's (HHS's) declaration [...] SARS-CoV-2. Performed By: #### C VDTB #### [facility] [address] [place] [address] Josef Ibarraen BNPon 08-22-2020 Natriuretic peptide B (Bld) [Mass/Vol] 168.0 pg/mL Normal <=900.0 [facility] Comment on above: Performed By: #### B PROPERTY INVESTOR, CMP #### [facility] [address] [place] [address] Josefbrandt Ibarraen CBC AUTO DIFFon 08-22-2020 BASO # 0.0 103/ul Normal 0.0-0.1 [facility] Comment on above: Performed By: #### C BC ####[facility] [address] [place], [place] [id number] Xiomara Basophils/100 WBC (Bld) 0.6 % Normal 0.2-2.0 [facility] Comment on above: Performed By: #### C BC ####[facility] [address] [place], [place] [address]Gerken Xiomara EO # 0.1 103/ul Normal 0.0-0.7 [facility] Comment on above: Performed By: #### C BC ####[facility] [address] [place], [place] [address]Gerken Xiomara Eosinophils/100 WBC (Bld) 0.9 % Normal 0.9-7.0 [facility] Comment on above: Performed By: #### C BC ####[facility] [address] [place] [address] Xiomara Erythrocyte distribution width (RBC) [Ratio] 12.7 % Normal 11.0-15.0 [facility] Comment on above: Performed By: #### C BC ####[facility] [address] [place] [address] Xiomara Hematocrit (Bld) [Volume fraction] 40.3 % Normal 36.0-48.0 [facility] Comment on above: Performed By: #### C BC ####[facility] [address] [place] [address] Xiomara Hemoglobin (Bld) [Mass/Vol] 12.9 g/dL Normal 12.0-16.0 [facility] Comment on above: Performed By: #### C BC ####[facility] [address] [place] [address] Xiomara IG # 0.01 10e3/ul Normal 0.00-0.03 [facility] Comment on above: Performed By: #### C BC ####[facility] [address] [place] [address] Xiomara IG % 0.1 % Normal 0.0-0.5 [facility] Comment on above: Performed By: #### C BC ####[facility] [address] [place] [address] Xiomara LYMPH # 2.4 103/ul Normal 1.2-3.8 [facility] Comment on above: Performed By: #### C BC ####[facility] [address] [place] [address] Xiomara Lymphocytes/100 WBC (Bld) 34.5 % Normal 20.5-60.0 [facility] Comment on above: Performed By: #### C BC ####[facility] [address] [place] [address] Xiomara MANUAL DIFF REQ NO Normal [facility] Comment on above: Performed By: #### C BC ####[facility] [address] [place] [address] Xiomara MCH (RBC) [Entitic mass] 30.0 pg Normal 26.7-34.0 [facility] Comment on above: Performed By: #### C BC ####[facility] [address] [place], [place] [address]brandt Solano MCHC (RBC) [Mass/Vol] 32.0 g/dL Normal 29.9-35.2 [facility] Comment on above: Performed By: #### C BC ####[facility] [address] [place], [place] [address]Josef Solano MCV (RBC) [Entitic vol] 93.7 fL Normal 81.0-99.0 [facility] Comment on above: Performed By: #### C BC ####[facility] [address] [place] [address] Xiomara MONO # 0.7 103/ul Normal 0.3-0.8 [facility] Comment on above: Performed By: #### C BC ####[facility] [address] [place], [place] [address]brandt Solano Monocytes/100 WBC (Bld) 9.3 % Normal 1.7-12.0 [facility] Comment on above: Performed By: #### C BC ####[facility] [address] [place], [place] [address]brandt Solano NEUT # 3.8 103/ul Normal 1.4-6.5 [facility] Comment on above: Performed By: #### C BC ####[facility] [address] [place], [place] [address]ken Xiomara Neutrophils/100 WBC (Bld) 54.6 % Normal 43.0-75.0 [facility] Comment on above: Performed By: #### C BC ####[facility] [address] [place], [place] [address]Gerken Xiomara Platelet mean volume (Bld) [Entitic vol] 11.0 fL Normal 9.5-13.5 [facility] Comment on above: Performed By: #### C BC ####[facility] [address] [place] [address] Xiomara PLT 211 103/ul Normal 150-450 [facility] Comment on above: Performed By: #### C BC ####[facility] [address] [place] [address]Josef Solano RBC 4.30 106/ul Normal 4.20-5.40 [facility] Comment on above: Performed By: #### C BC ####[facility] [address] [place] [address]Josef Solano WBC 7.0 103/ul Normal 4.0-11.0 [facility] Comment on above: Performed By: #### C BC ####[facility] [address] [place] [address]Josef Solano D-DIMERon 08-22-2020 D-DIMER 0.25 mg/L FEU Normal 0.19-0.50 [facility] Comment on above: Performed By: #### D DIM #### [facility] [address] [place] [address] Josef Solano D-DIMER COMMENTS SEE BELOW Normal [facility] Comment on above: Result Comment: Incr [...] hospitalization. Performed By: #### D DIM #### [facility] [address] [place], [place] [address] Josef Xiomara PROF 14(COMP METB)on 021 Albumin [Mass/Vol] 3.8 g/dL Normal 3.5-5.0 [facility] Comment on above: Performed By: #### B PROPERTY INVESTOR, CMP #### [facility] [address] [place], [place] [address] Josef Ibarraen Albumin/Globulin [Mass ratio] 1.2 {ratio} Normal [facility] Comment on above: Performed By: #### B PROPERTY INVESTOR, CMP #### [facility] [address] [place], [place] [address] Josef Xiomara ALP [Catalytic activity/Vol] 81 U/L Normal 38-126 [facility] Comment on above: Performed By: #### B PROPERTY INVESTOR, CMP #### [facility] [address] [place], [place] [address] Josef Xiomara ALT [Catalytic activity/Vol] 22 U/L Normal 9-52 [facility] Comment on above: Performed By: #### B PROPERTY INVESTOR, CMP #### [facility] [address] [place] [address] Josef Xiomara Anion gap [Moles/Vol] 11.9 mmol/L Normal [facility] Comment on above: Performed By: #### B PROPERTY INVESTOR, CMP #### [facility] [address] [place] [address] Josef Xiomara AST [Catalytic activity/Vol] 18 U/L Normal 14-36 [facility] Comment on above: Performed By: #### B PROPERTY INVESTOR, CMP #### [facility] [address] [place], [place] [address] Josef Xiomara Bilirubin [Mass/Vol] 0.4 mg/dL Normal 0.2-1.3 [facility] Comment on above: Performed By: #### B PROPERTY INVESTOR, CMP #### [facility] [address] [place], [place] [address] Josef Xiomara Calcium [Mass/Vol] 8.7 mg/dL Normal 8.4-10.2 [facility] Comment on above: Performed By: #### B PROPERTY INVESTOR, CMP #### [facility] [address] [place] [address] Josef Xiomara Chloride [Moles/Vol] 104 mmol/L Normal 98-107 [facility] Comment on above: Performed By: #### B PROPERTY INVESTOR, CMP #### [facility] [address] [place] [address] Josef Xiomara CO2 [Moles/Vol] 29.1 mmol/L Normal 22.0-30.0 [facility] Comment on above: Performed By: #### B PROPERTY INVESTOR, CMP #### [facility] [address] [place] [address] Josef Xiomara Creatinine [Mass/Vol] 0.59 mg/dL Normal 0.52-1.04 [facility] Comment on above: Performed By: #### B PROPERTY INVESTOR, CMP #### [facility] [address] [place] [address] Josef Xiomara EGFR-AF FAROESE >60 Normal >=60 [facility] Comment on above: Performed By: #### B PROPERTY INVESTOR, CMP #### [facility] [address] [place] [address] Josef Xiomara EGFR-NON AF FAROESE >60 Normal >=60 [facility] Comment on above: Performed By: #### B PROPERTY INVESTOR, CMP #### [facility] [address] [place] [address] Josef Xiomara Globulin (S) [Mass/Vol] 3.3 g/dL Normal [facility] Comment on above: Performed By: #### B PROPERTY INVESTOR, CMP #### [facility] [address] [place] [address] Josef Xiomara Glucose [Mass/Vol] 72 mg/dL Critically low 74-106 [facility] Comment on above: Performed By: #### B PROPERTY INVESTOR, CMP #### [facility] [address] [place] [address] Josef Xiomara Potassium [Moles/Vol] 4.0 mmol/L Normal 3.4-5.0 [facility] Comment on above: Performed By: #### B PROPERTY INVESTOR, CMP #### [facility] [address] [place] [address] Josef Xiomara Protein [Mass/Vol] 7.1 g/dL Normal 6.1-8.2 [facility] Comment on above: Performed By: #### B PROPERTY INVESTOR, CMP #### [facility] [address] [place] [address] Josef Xiomara Sodium [Moles/Vol] 141 mmol/L Normal 137-145 [facility] Comment on above: Performed By: #### B PROPERTY INVESTOR, CMP #### [facility] [address] [place] [address] Josef Xiomara Urea nitrogen [Mass/Vol] 20.0 mg/dL Critically high 7.0-17.0 [facility] Comment on above: Performed By: #### B PROPERTY INVESTOR, CMP #### [facility] [address] [place] [address] Josef Solano Urea nitrogen/Creatinine [Mass ratio] 33.9 mg/mg Normal [facility] Comment on above: Performed By: #### B PROPERTY INVESTOR, CMP #### [facility] [address] [place] [address] Josef Solano CREATININEon 07-25-2020 Creatinine [Mass/Vol] 0.63 mg/dL Normal 0.52-1.04 [facility] Comment on above: Performed By: #### C ZEYAD #### [facility] [address] [place] [address] Josef Solano EGFR-AF FAROESE >60 Normal >=60 [facility] Comment on above: Performed By: #### C ZEYAD #### [facility] [address] [place] [address] Josef Solano EGFR-NON AF FAROESE >60 Normal >=60 [facility] Comment on above: Performed By: #### C ZEYAD #### [facility] [address] [place] [address] PELVIS W CONon 07-25-2020 [...] by: ALLEY ALLEN Date: 2020-07-25 14:11 Normal [facility] Vital Signs Date Time Vital Sign Value Performing Clinician Facility 12-27-2023 12:51-0500 Body height 157.5 cm [place] Phone: [facility] [employer] 12-27-2023 12:51-0500 Body mass index (BMI) [Ratio] 27.62 kg/m2 [place] Phone: [facility] [employer] 12-27-2023 12:51-0500 Body weight 68.49 kg [place] Phone: [facility] [employer] 12-27-2023 12:51-0500 Diastolic blood pressure 74 mm[Hg] [place] Phone: [facility] [employer] 12-27-2023 12:51-0500 Heart rate 83 /min [place] Phone: [facility] [employer] 12-27-2023 12:51-0500 Respiratory rate 12 /min [place] Phone: [facility] [employer] 12-27-2023 12:51-0500 SaO2% (BldA) [Mass fraction] 96 % [place] Phone: [facility] [employer] 12-27-2023 12:51-0500 Systolic blood pressure 118 mm[Hg] [place] Phone: [facility] [employer] 12-06-2023 10:57-0400 Body height 152.4 cm [place] Phone: [facility] [employer] 12-06-2023 10:57-0400 Body mass index (BMI) [Ratio] 29.88 kg/m2 [place] Phone: [facility] [employer] 12-06-2023 10:57-0400 Body weight 69.4 kg Jatin Hayden DO Work Phone: [facility] 12-06-2023 10:57-0400 Diastolic blood pressure 68 mm[Hg] Jatin Hayden DO Work Phone: [facility] 12-06-2023 10:57-0400 Systolic blood pressure 122 mm[Hg] Jatin Hayden DO Work Phone: [facility] 11-16-2023 15:08-0400 Blood Pressure Location [facility] 11-16-2023 15:08-0400 Diastolic blood pressure 76 mm[Hg] Hayes [employer]F [employer] [facility] 11-16-2023 15:08-0400 Heart rate 70 /min Hayes BUX [facility] 11-16-2023 15:08-0400 Respiratory rate 16 /min Hayes BUX [facility] 11-16-2023 15:08-0400 Systolic blood pressure 136 mm[Hg] Hayes BUX [facility] Encounters Encounter Date Encounter Type Care Provider Facility Start: 12-27-2023 End: 12-27-2023 Bamboo flowsheet Jatin Hayden [employer] Work Phone: [facility] Start: 12-27-2023 End: 12-27-2023 Bamboo flowsheet Jatin Hayden DO Work Phone: [facility] Start: 12-27-2023 End: 12-27-2023 Postop follow up visit related to original px Jatin Hayden DO Work Phone: [employer] Comment on above: Status post cholecys tectomy (Primary Dx) Start: 12-27-2023 End: 12-27-2023 ambulatory JATINANNA HAYDEN Not Available Start: 12-14-2023 End: 12-14-2023 ambulatory Jatin Hayden [facility] Work Phone: Start: 12-14-2023 End: 12-14-2023 Departed Referred DO Jatin Hayden Work Phone: [facility] Start: 12-06-2023 End: 12-06-2023 Bamboo flowsheet Jatin Hayden DO Work Phone: [facility] Start: 12-06-2023 End: 12-06-2023 Bamboo flowsheet Jatin Hayden DO Work Phone: [facility] Start: 12-06-2023 End: 12-06-2023 Office outpatient new 45 minutes Jatin Hayden DO Work Phone: [facility] Comment on above: Biliary dyskinesia ( Primary Dx) Start: 12-06-2023 End: 12-06-2023 ambulatory JATIN HAYDEN Not Available Start: 11-24-2023 End: 11-24-2023 ambulatory Hayes PEÑA Facility:[id number] Start: 11-16-2023 End: 11-16-2023 ambulatory Hayes PEÑA Facility:[facility] Start: 11-16-2023 End: 11-16-2023 Patient encounter procedure Hayes PEÑA [facility] [place] Start: 09-14-2023 End: 09-14-2023 ambulatory MD Katelyn Kaufman Work Phone: [facility] Work Phone: Start: 09-14-2023 End: 09-14-2023 Discharged Recurring MD Katelyn Kaufman Work Phone: [facility]-Physical Therapy [place] Start: 07-04-2021 End: 07-05-[address] KATELYN KAUFMAN Facility:[facility] Start: 03-10-2021 End: 01-18-[address] KATELYN KAUFMAN Facility:[facility] Start: 09-09-2020 Encounter for prepro cedural laboratory examination DR HAYES PEÑA [facility] Start: 09-04-2020 End: 09-04-[address] HAYES PEÑA Facility:[facility] Start: 08-31-2020 End: 09-01-[address] HAYES PEÑA Facility:[facility] Start: 08-31-2020 End: 09-01-2020 Encounter for preprocedural laboratory examination DR HAYES PEÑA Facility:[facility] Start: 08-30-2020 Encounter for prepro cedural cardiovascular examination DR HAYES PEÑA [facility] Start: 08-22-2020 End: 08-23-[address] HAYES [...] Decompression of med violetta nerve Hayes PEÑA History of cholecystectomy Status post cholecystectomy Jatin Hayden DO Work Phone: Tonsillectomy primary/secondary Hayes PEÑA Total abdominal hysterectomy Hayes PEÑA Plan of Treatment Date Care Activity Detail Author Start: 12-27-2023 End: 12-27-2023 Patient encounter procedure 12/27/2023 1:00 PM EST Office Visit [facility] [address] [place] [address] Jatin Hayden DO [address] [place] [address] Arrived [facility] Comment on above: Arrived Start: 12-06-2023 End: 12-06-2023 Patient encounter procedure 12/06/2023 11:00 AM EDT Office Visit [facility] [address] [place] [address] Jatin Hayden DO [address] [place] [address] Arrived [facility] Comment on above: Arrived Start: 10-24-2023 Influenza vaccination Influenza Vacc ine (#1) [facility] Start: 2018 Pneumococcal Vaccine : 65+ Years (1 of 1 - PCV) Pneumococcal Vaccine: 65+ Years (1 of 1 - PCV) [facility] Start: 09-23-2017 Screening for malign ant neoplasm of breast Mammogram [facility] Start: 1955 Screening for malign ant neoplasm of colon [facility] Immunizations Immunization Date Immunization Notes Care Provider sIabella mata 01-07-2018 influenza virus vaccine, unspecified formulation Jatin Hayden DO Work Phone: [facility] NEGATED: Highlighted row has not occurred!04-12-2019 influenza virus vaccine, live, attenuated, for intranasal use Hayes PEÑA [facility] Payers Date Payer Category Payer Self-pay [id number] 2023 Medicare (Managed Care) [facility] MEDICARE [id number] 2023 Private Health Insurance [id number] 1961 Medicare [id number] 1961 Medicare [id number] 1955 Unknown [id number] 2.16.840.1.589440.3.579.2. 593 1953 Unknown [id number] 2.16.840.1.093635.3.579.2. 593 1953 Unknown [id number] 2.16.840.1.455748.3.579.2. 593 1953 Unknown [id number] 2.16.840.1.940217.3.579.2. 593 1953 Unknown [id number] 2.16.840.1.971411.3.579.2. 593 1953 Unknown [id number] 2.16.840.1.278760.3.579.2. 593 1953 Unknown [id number] 2.16.840.1.798477.3.579.2. 593 1953 Unknown [id number] 2.16.840.1.924770.3.579.2. 727 1955 Unknown [id number] 2.16.840.1.082992.3.579.2. 727 1953 Unknown [id number] 2.16.840.1.290721.3.579.2. 1259 1955 Unknown [id number] 2.16.840.1.377650.3.579.2. 1259 Medicare Medicare [id number] Unknown [id number] 2.16.840.1.396077.3.579.2. 531 Unknown [id number] 2.16.840.1.932025.3.579.2. 531 Social History Date Type Detail Facility Tobacco smoking status NHIS Unknown if ever smoked [facility] Work Phone: Start: 1955 Sex Assigned At Female F [facility] Start: 11-16-2023 Tobacco smoking status Never smoked tobacco (finding) [facility] Tobacco smoking status Never [facility] Sex Assigned At Female [facility] Tobacco smoking status SDIS Tobacco smoking consumption unknown [facility] Healthcare Start: 1955 Sex assigned at Not on file N [facility] Healthcare Functional Status Date Assessment Result Facility 11-16-2023 Functional Status N/A [facility] Clinical Notes 07-12-2020 to 12-27-2023 Jatin Hayden DO - 12/27/2023 1:00 PM Lb Hayden DO - 12/06/2023 11:00 AM EDT Note Date & Type Note Facility 12-27-2023 History of Present illness Narrative General Surgery H&P Shanique Camargo 1955 Shanique Camargo is a 68 y.o. female presents Post-op (Pt presents 2 weeks post op cholecystectomy on 12/13. She states that she is doing well, denies any concerns. ). Path benign. Doing well postoperatively. Denies fevers, chills, or sweats. Denies nausea or vomiting. Tolerating diet and having regular bowel function. No pain currently. No complaints at this time. SUBJECTIVE: MEDICATIONS: ALLERGIES Current Outpatient Medications Medication [...] per CMS guidelines OBJECTIVE: Visit Vitals BP 118/74 Pulse 83 Resp 12 Ht 5' 2 Wt 151 lb SpO2 96% BMI 27.62 kg/m BSA 1.73 m Physical Exam Vitals reviewed. General: AAOx3, NAD Head: atraumatic normocephalic Neck: trachea midline. No masses or lymphadenopathy Heart: Regular rate and rhythm Lungs: equal chest rise and fall, non labored breathing Abdomen: soft, nontender, and non distended, incisions c/d/i Ext: motor 5/5 all extremities with no gross deformities Psych: alert and oriented, behavior appropriate ASSESSMENT AND PLAN: Assessment/Plan Diagnoses and all orders for this visit: Status post cholecystectomy Patient doing well. No complaints. Instructed to continue daily washing of incisions and no swimming/bathing until 14 days past procedure or until incisions fully healed. No lifting more then 12-15lbs until 21 days after procedure. Ok to return to work with lifting restrictions mentioned above. Follow up as needed. Thank you, Reese Hayden DO documented in this encounter [facility] 12-06-2023 History of Present illness Narrative General Surgery H&P Shanique Camargo [...] Reese Hayden DO documented in this encounter [facility] 11-16-2023 Note General Surgery Offi ce/Clinic Note [...] Dis Tab, 4 (more content not included)... [facility] Comment on above: Result Comment: Elec tronically Signed By: CASEY DA SILVA, Hayes Goodwin\Date and Time Signed: 11/16/23 15:49 EDT 03-10-2021 Note PROCEDURE: XR HAND R T MIN 3V COMPARISON: 07/12/2020 hand HISTORY: Pain in right thumb FINDINGS: BONES:No acute fracture or dislocation. 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 No visible soft tissue swelling. EFFUSION:None visible. OTHER: Negative. IMPRESSION: Degenerative changes, no acute abnormality Electronically authenticated by: EDMOND CAAL Date: 2021-03-10 13:48 [facility] 09-04-2020 Note OPERATIVE NOTE OPERATION DATE: 09-04-20 [...] Recovery Room in good condition. cc:Dr. Kaufman. [facility] Signed and Approved by: DR HAYES PEÑA . 09/06/2020 08:06:00 [facility] 07-12-2020 Note PROCEDURE: XR HAND B IL [...] by: ALLEY ALLEN Date: 2020-07-12 13:58 [facility] Evaluation + Plan note No data available for this section [facility] Evaluation note No assessment inform ation available [facility] Work Phone: Evaluation note Diagnosis Biliary dyskinesia- Primary Other specified disorder of gallbladder [facility] Diagnosis Status post cholecystectomy- Primary Other acquired absence of organ [facility] Discharge instructions No data available for this section [facility] Progress note No data available for this section [facility] Summary Purpose Family History No Family History Records Found No data available for this section No Family History Records FoundNo Family History Records FoundNo Family History Records Found Advance Directives No Advanced Directives Records Found Advance Directive Response Recorded Date/ Time Advance Directives No December 7:43pm Chief Complaint and Reason for Visit Chief Complaint Sciatica Chief Complaint Unknown Additional Source Comments INFORMATION SOURCE (unrecogn ized section and content) DATE CREATED AUTHOR 07/12/2021 [facility] DATE CREATED AUTHOR AUTHOR'S ORGANIZ ATION 12/06/2023 [facility] DATE CREATED AUTHOR AUTHOR'S ORGANIZ ATION 12/22/2023 [facility] DATE CREATED AUTHOR AUTHOR'S ORGANIZ ATION 12/28/2023 [facility] [employer] Care Teams (unrecognized sec tion and content) Team Status: Active Member Role Status Dates Katelyn Kaufman MD Primary Care Provider Active Team Status: Inactive Member Role Status Dates Katelyn Kaufman MD Primary Care Provider Active Start: September 14, 2023 End: September 14, 2023 Jas Kelly DO Attending Provider Active S tart: September 14, 2023 End: September 14, 2023 [employer] Relationship Specialty Start Date End Date Katelyn Kaufman MD [address] [place] [phone] PCP - General Family Medicine 12/06/23 [employer] Relationship Specialty Start Date End Date Katelyn Kaufman MD [address] [place] [phone] PCP - General [facility] 12/06/23 Team Status: Inactive Member Role Status Dates Jatin Hayden DO Attending Provider Active Star t: December 14, 2023 End: December 14, 2023 [employer] Relationship Specialty Start Date End Date Katelyn Kaufman MD [address] [place] [phone] PCP - General Family [facility] 12/06/23 Goals (unrecognized section and content) Goals may be documented in a n alternate section No data available for this sectionGoals may be documented in an alternate section Reason for Visit (unrecogniz ed section and content) Reason Comments Abdominal Pain Patient presents wit h abdominal pain and flank pain. Since August. Nausea Acidic and greasy foods upset stomach. Patient had abdominal ultrasound and hida scan. Reason Comments Post-op Pt presents 2 weeks post op cholecystectomy on 12/13. She states that she is doing well, denies any concerns. FOR RECORDS PERTAINING TO PATIENTS WHO ARE [...] BE BASED ON THE PRIMARY CLINICAL RECORDS. [employer] provides no warranty or guarantee of the accuracy or completeness of information in this document.
--- NOTE | 2024-01-07 07:22 | CT_ITS ---
[address] [address] Patient Name: MRAY JO ROBLES MRN: [id number] date: 1955 Sex: F Assigned Patient Location: ER Current Patient Location: [facility] Accession/Order Number: [id number] Exam Date: 01/07/2024 08:15 Report Date: 01/07/2024 08:58 At the request of: DANA NOVAK Procedure: CT abdomen pelvis w con EXAMINATION: CT abdomen pelvis w con HISTORY: GB surgery ; abdominal pain and nausea; cholecystectomy 3 weeks ago COMPARISON: CT abdomen pelvis 09/23/2023 TECHNIQUE: Axial, Coronal, and Sagittal images were obtained without and/or with IV contrast as indicated by examination type. Dose reduction techniques were achieved by using automated exposure control and/or adjustment of mA and/or kV according to patient size and/or use of iterative reconstruction technique. FINDINGS: LUNG BASES: No visible pulmonary or pleural disease. LIVER: No enlargement, atrophy, suspicious density, or significant focal lesion. BILIARY: Cholecystectomy. No abnormal duct dilation, free fluid, or inflammatory changes. PANCREAS: No lesion, fluid collection, or abnormal duct dilatation. SPLEEN: Innumerable calcifications within the spleen. No enlargement or focal lesion. ADRENALS: No mass or enlargement. KIDNEYS: No mass, obstruction, or calcification. BOWEL/MESENTERY: Marked diverticulosis of distal colon without acute inflammatory changes. No visible mass, obstruction, or bowel wall thickening. Normal appendix. AORTA/VASCULAR: No aneurysm or dissection. RETROPERITONEUM: No mass or adenopathy. LYMPH NODES: No adenopathy. URINARY BLADDER: No visible focal wall thickening, lesion, or calculus. PELVIC ORGANS: No visible mass. Pelvic organs appropriate for patient age. ABDOMINAL WALL: No mass or hernia. BONES: Multilevel degenerative disc disease of lumbar spine; marked at L4-5. No bony lesion or fracture. OTHER: Negative. CT/CT abdomen pelvis w con IMPRESSION: 1. No acute or suspicious abdominal findings to account for patient's symptoms. 2. Recent cholecystectomy. No acute or suspicious findings. 3. Colonic diverticulosis. Electronically authenticated by: ALLEY ALLEN Date: 01/07/2024 08:58
[2024-01-07 07:35] VITALS: O2SAT 99
--- NOTE | 2024-01-07 07:37 | ED.GENADUL1 ---
HPI HPI - General Adult General Chief complaint: Abdominal Pain Stated complaint: POST OPERATIVE COMPLICATIONS/GENERAL WEAKNESS Time Seen by Provider: 01/07/24 07:22 Source: patient Mode of arrival: walk-in Limitations: no limitations History of Present Illness HPI narrative: Patient is a 68-year-old female who is presenting to the ER today with chief complaint nausea, diffuse abdominal discomfort, ache. Patient has no chest pain or shortness of breath. No fever or chills. No nausea or vomiting. Patient had gallbladder surgery by Dr. Hayden approximately December 12 or . Patient also does not have her uterus or ovaries. Patient does have her appendix. Patient been having normal flatulence, normal soft stool this week. Patient ate salami, crackers, and other things on Wednesday, similar symptoms started yesterday. Patient does take Protonix daily. No abdominal distention. No flank pain or back pain. Daughter is at bedside. Patient was at work this morning, she works at [employer]. Patient was having some nausea and discomfort. Patient took her own Zofran tablet this morning with no relief. Patient came into the ER. Patient had right-sided right frontal sinus headache yesterday and today slightly. She is asking for Tylenol for headache. She wants nothing stronger for pain, she would like something additional for nausea. Patient was doing research on Dr. Charles this morning with her daughter, patient was concerned that a stone may be stuck in her ducts. Patient was not told that she had any stones in her gallbladder, she has no right upper quadrant pain, fever, chills, shoulder pain, no jaundice. Education done at bedside of Choleductaliathasis. All systems are negative except as noted/marked. All systems reviewed and otherwise negative. Nurses note and vital signs reviewed and patient is not hypoxic. General: The patient appears well and in no apparent distress. Patient is resting comfortably on cart. Patient is not toxic, lethargic, or listless Skin: Warm, dry, no pallor noted. There is no rash noted. No petechiae, purpura. Head: Normocephalic, atraumatic Eye: Normal conjunctiva, no drainage, EOMI. PERRL Ears, Nose, Mouth, and Throat: oral mucosa is moist. Nares patent. Mouth without vesicles. Cardiovascular: Regular Rate and Rhythm, no murmur, gallop, rub Respiratory: Patient is in no distress, no accessory muscle use, lungs are clear to auscultation, no wheezing, rales or rhonchi Back: non-tender, no CVA tenderness bilaterally to percussion. No CT LS midline pain GI: Mild periumbilical tenderness to palpation, no flank pain bilateral, no peritoneal signs, abdomen not rigid, no tympany. No pulsatile mass, otherwise no tenderness to palpation, no masses appreciated. No rebound, guarding, or rigidity noted. No distention patient has no specific right upper quadrant or midepigastric tenderness to palpation.. Musculoskeletal: Patient has full range of motion of all of the extremities, no motor, sensory, or focal neurological deficits Neurological: A&O x4, normal speech Psychiatric: Cooperative Related Data Home Medications ?Medication ?Instructions ?Recorded ?Confirmed hyoscyamine 0.15 mg tablet 0.125 mg PO .[id number] PRN abdominal 11/19/23 01/07/24 discomfort ondansetron 4 mg disintegrating 4 mg PO TID PRN nausea and vomiting 11/19/23 01/07/24 tablet pantoprazole 40 mg tablet,delayed 40 mg PO DAILY 11/19/23 01/07/24 release (Protonix) polyethylene glycol 3350 17 gram 17 g PO DAILY 12/10/23 01/07/24 oral powder packet (Miralax) Previous Rx's ?Medication ?Instructions ?Recorded dicyclomine 20 mg tablet 20 mg PO TID PRN abdominal pain #7 01/07/24 tabs promethazine 25 mg rectal 25 mg RI Q6H PRN nausea and 01/07/24 suppository vomiting #6 ea Allergies Allergy/AdvReac Type Severity Reaction Status Date / Time levofloxacin Allergy Intermediate myalgia Verified 11/19/23 11:56 NSAIDS (Non-Steroidal Allergy Abdominal Verified 12/10/23 13:48 Anti-Inflamma Pain sucralfate Allergy constipatio Verified 12/10/23 13:48 n Opioid HPI Opioid Management Most Recent Opioid Data: Last Pain Scale 8 01/07/24 07:47 01/07/24 Last MAR Pain Assessment 01/07/24 07:47 PFSH PFS Medical History (Updated 01/07/24 @ 09:41 by Terrence Mckeon MD) Biliary dyskinesia ?K82.8 - Other specified diseases of gallbladder (ICD-10) Sciatica ?M54.30 - Sciatica, unspecified side (ICD-10) Arthritis ?M19.90 - Unspecified osteoarthritis, unspecified site (ICD-10) COVID-19 ?U07.1 - COVID-19 (ICD-10) Headache ?R51.9 - Headache, unspecified (ICD-10) Postoperative nausea and vomiting ?R11.2 - Nausea with vomiting, unspecified (ICD-10) ?Z98.890 - Other specified postprocedural states (ICD-10) Delayed recovery from anesthesia Cystitis ?N30.90 - Cystitis, unspecified without hematuria (ICD-10) COVID ?U07.1 - COVID-19 (ICD-10) Sigmoid diverticulitis ?K57.32 - Diverticulitis of large intestine without perforation or abscess without bleeding (ICD-10) Periumbilical pain ?R10.33 - Periumbilical pain (ICD-10) Osteoporosis ?M81.0 - Age-related osteoporosis without current pathological fracture (ICD-10) Lipoma of skin ?D17.30 - Benign lipomatous neoplasm of skin and subcutaneous tissue of unspecified sites (ICD-10) Irreducible left inguinal hernia ?K40.30 - Unilateral inguinal hernia, with obstruction, without gangrene, not specified as recurrent (ICD-10) GERD (gastroesophageal reflux disease) ?K21.9 - Gastro-esophageal reflux disease without esophagitis (ICD-10) Femoral hernia of left side ?K41.90 - Unilateral femoral hernia, without obstruction or gangrene, not specified as recurrent (ICD-10) Epigastric pain ?R10.13 - Epigastric pain (ICD-10) Surgical History (Updated 12/10/23 @ 14:03 by Kala Asencio NP) History of tubal ligation ?Z98.51 - Tubal ligation status (ICD-10) History of total abdominal hysterectomy ?Z90.710 - Acquired absence of both cervix and uterus (ICD-10) Hx of tonsillectomy ?Z90.89 - Acquired absence of other organs (ICD-10) History of carpal tunnel release ?Z98.890 - Other specified postprocedural states (ICD-10) History of knee replacement ?Z96.659 - Presence of unspecified artificial knee joint (ICD-10) H/O left inguinal hernia repair ?Z98.890 - Other specified postprocedural states (ICD-10) ?Z87.19 - Personal history of other diseases of the digestive system (ICD-10) H/O colonoscopy ?Z98.890 - Other specified postprocedural states (ICD-10) Family History (Updated 11/19/23 @ 11:56 by Joellen Sharp) Mother Family history of COPD (chronic obstructive pulmonary disease) Family history of hypertension Family history of cancer Father Family history of COPD (chronic obstructive pulmonary disease) Social History (Updated 11/22/23 @ 10:49 by Laurie Ansari RN) Within the past year, how often did you have a drink containing alcohol: never Score interpretation: A score less than 3 is consistent with normal alcohol consumption. Smoking status: Never smoker Non-prescribed substance use: denies use Previous occupational history: [employer] Highest level of school completed/degree received: 10th grade Exam Constitutional Vital Signs, click to edit/add: Last Vital Signs Temp 98.1 F 01/07/24 07:11 Pulse 72 01/07/24 09:32 Resp 18 01/07/24 09:32 BP 102/75 01/07/24 09:32 Pulse Ox 100 01/07/24 09:32 O2 Del Method Room Air 01/07/24 07:35 Course Vital Signs Vital signs: Vital Signs Temperature 98.1 F 01/07/24 07:11 Pulse Rate 83 01/07/24 07:11 Respiratory Rate 18 01/07/24 07:11 Blood Pressure 149/75 H 01/07/24 07:11 Pulse Oximetry 100 01/07/24 07:11 Oxygen Delivery Method Room Air 01/07/24 07:11 Temperature 98.1 F 01/07/24 07:11 Pulse Rate 72 01/07/24 09:32 Respiratory Rate 18 01/07/24 09:32 Blood Pressure 102/75 01/07/24 09:32 Pulse Oximetry 100 01/07/24 09:32 Oxygen Delivery Method Room Air 01/07/24 07:35 Medical Decision Making MDM Narrative Medical decision making narrative: Patient lab work shows no acute findings. Patient CT of the abdomen pelvis shows no acute findings. Patient's LFTs, lipase, troponin are all negative. Patient case was discussed with Dr. Hayden at 0920. Patient had Zofran at home earlier this morning. Patient will be sent home with Phenergan suppositories and Bentyl to use prophylactically. Patient was educated on eating fatty greasy food may take a while to calibrate with the abdomen. Patient also was told there is enterovirus and norovirus going around as well, Dr. Hayden want me to give her information on that. I did do education with patient and daughter at bedside on diverticulosis versus diverticulitis. We discussed patient's CT findings, she was given a copy of her CT report. Patient will follow-up with PCP and Dr. Hayden as needed, no questions at discharge. Patient's nausea has improved. Patient has a soft, nontender, nonsurgical abdomen at discharge Lab Data Labs: Lab Results 01/07/24 01/07/24 Range/Units 07:20 07:26 WBC 7.4 (4.0-11.0) 10^3/uL RBC 4.35 (4.20-5.40) 10^6/uL Hgb 13.3 (12.0-16.0) g/dL Hct 40.3 (36.0-48.0) % MCV 92.6 (81.0-99.0) fL MCH 30.6 (26.7-34.0) pg MCHC 33.0 (29.9-35.2) g/dL RDW 12.6 (11.0-15.0) % Plt Count 261 (150-450) 10^3/uL MPV 11.1 (9.5-13.5) fL Neut % (Auto) 74.5 (43.0-75.0) % Lymph % (Auto) 17.9 L (20.5-60.0) % Vance % (Auto) 6.6 (1.7-12.0) % Eos % (Auto) 0.5 L (0.9-7.0) % Baso % (Auto) 0.4 (0.2-2.0) % Neut # (Auto) 5.5 (1.4-6.5) 10^3/uL Lymph # (Auto) 1.3 (1.2-3.8) 10^3/uL Vance # (Auto) 0.5 (0.3-0.8) 10^3/uL Eos # (Auto) 0.0 (0.0-0.7) 10^3/uL Baso # (Auto) 0.0 (0.0-0.1) 10^3/uL Abs Immat Gran (auto) 0.01 (0.00-0.03) 10^3/uL Imm/Tot Granulo (auto) 0.1 (0.0-0.5) % Sodium 143 (136-145) mmol/L Potassium 4.1 (3.5-5.1) mmol/L Chloride 105 (98-107) mmol/L Carbon Dioxide 23.0 (21.0-32.0) mmol/L Anion Gap 19.1 BUN 11.0 (7.0-18.0) mg/dL Creatinine 0.64 (0.55-1.02) mg/dL Est GFR ( Amer) >60 (>=60 mL/min/1.73m^2) Est GFR (Non-Af Amer) >60 (>=60 mL/min/1.73m^2) BUN/Creatinine Ratio 17.2 Glucose 105 (74-106) mg/dL Lactate 0.6 (0.4-2.0) mmol/L Calcium 8.9 (8.5-10.1) mg/dL Total Bilirubin 0.6 (0.2-1.0) mg/dL AST 21 (15-37) U/L ALT 23 (14-59) U/L Alkaline Phosphatase 79 (46-116) U/L Troponin I High Sens 5.9 (4.0-51.3) pg/mL Total Protein 7.0 (6.4-8.2) g/dL Albumin 3.7 (3.4-5.0) g/dL Globulin 3.3 g/dL Albumin/Globulin Ratio 1.1 Lipase 31.0 (16.0-77.0) U/L Urine Color Yellow (YELLOW) Urine Clarity Clear (CLEAR) Urine pH 5.5 (5.0-9.0) Ur Specific W[place]sworth >=1.030 A (1.005-1.025) Urine Protein Negative (NEG/TRACE) mg/dL Urine Glucose (UA) Negative (NEGATIVE) mg/dL Urine Ketones 15 A (NEGATIVE) mg/dL Urine Occult Blood Negative (NEGATIVE) Urine Nitrite Negative (NEGATIVE) Urine Bilirubin Negative (NEGATIVE) Urine Urobilinogen 0.2 (0.2-1.0) EU/dL Ur Leukocyte Esterase Negative (NEGATIVE) Urine RBC 0-2 (0-2) #/HPF Urine WBC 0-2 A (NONE SEEN) #/HPF Ur Squamous Epith Cells Rare (NONE/RARE) #/LPF Urine Crystals None seen (None Seen) #/HPF Urine Bacteria Trace A (NONE SEEN) #/HPF Urine Casts None seen (NONE SEEN) #/LPF Urine Mucus None seen (NONE SEEN) Discharge Plan Discharge Chief Complaint: Abdominal Pain Clinical Impression: Abdominal pain, Nausea Patient Disposition: Home, Self-Care Time of Disposition Decision: 09:42 Condition: Fair Prescriptions / Home Meds: New promethazine 25 mg suppository 25 mg RI Q6H PRN (Reason: nausea and vomiting) Qty: 6 0RF dicyclomine 20 mg tablet 20 mg PO TID PRN (Reason: abdominal pain) Qty: 7 0RF No Action hyoscyamine 0.15 mg tablet 0.125 mg PO .[id number] PRN (Reason: abdominal discomfort) ondansetron 4 mg tablet,disintegrating 4 mg PO TID PRN (Reason: nausea and vomiting) pantoprazole [Protonix] 40 mg tablet,delayed release (DR/EC) 40 mg PO DAILY polyethylene glycol 3350 [Miralax] 17 gram powder in packet 17 g PO DAILY Print Language: Macedonian Instructions: Diverticulosis (ED), Acute Nausea and Vomiting (ED), Abdominal Pain (ED) Additional Instructions: Use Phenergan suppositories in addition to Zofran as needed for nausea. Use Bentyl as needed for abdominal cramping Increase fluids at home, Gatorade, Powerade, Education was given to you and diverticulosis for educational purposes only. Follow-up with PCP and Dr. Hayden as needed Referrals: Merrill Kaufman MD [Primary Care Provider] - 1 week
[2024-01-07 07:38] LABS: Basophils Percent Auto 0.4 % (0.2-2.0); Eosinophils Percent Auto 0.5 % (0.9-7.0); Hematocrit 40.3 % (36.0-48.0); Hemoglobin 13.3 g/dL (12.0-16.0); Immature Granulocytes Abs Auto 0.01 10^3/uL (0.00-0.03); Immature Granulocytes Pct Auto 0.1 % (0.0-0.5); Lymphocytes Absolute Auto 1.3 10^3/uL (1.2-3.8); Lymphocytes Percent Auto 17.9 % (20.5-60.0); Mean Corpuscular Hemoglobin 30.6 pg (26.7-34.0); Mean Corpuscular Volume 92.6 fL (81.0-99.0); Mean Platelet Volume 11.1 fL (9.5-13.5); Monocytes Absolute Auto 0.5 10^3/uL (0.3-0.8); Monocytes Percent Auto 6.6 % (1.7-12.0); Neutrophils Absolute Auto 5.5 10^3/uL (1.4-6.5); Neutrophils Percent Auto 74.5 % (43.0-75.0); Platelet Count 261 10^3/uL (150-450); Red Blood Count 4.35 10^6/uL (4.20-5.40); Red Cell Distribution Width 12.6 % (11.0-15.0); White Blood Count 7.4 10^3/uL (4.0-11.0)
[2024-01-07 07:41] LABS: Bilirubin Urine NEGATIVE (NEGATIVE); Blood Urine NEGATIVE (NEGATIVE); Clarity Urine CLEAR (CLEAR); Color Urine YELLOW (YELLOW); Glucose Urine UA NEGATIVE (NEGATIVE); Ketones Urine 15 mg/dL (NEGATIVE); Leukocyte Esterase Urine NEGATIVE (NEGATIVE); Nitrite Urine NEGATIVE (NEGATIVE); Protein Urine NEGATIVE (NEG/TRACE); Specific Gravity Urine >=1.030 (1.005-1.025); Urobilinogen Urine 0.2 EU/dL (0.2-1.0); pH Urine 5.5 (5.0-9.0)
[2024-01-07] MEDS: ONDANSETRON PF 4 MG/2 ML VIAL IV (07:47)
[2024-01-07] MEDS: METOCLOPRAMIDE HCL 10 MG/2 ML VIAL 5 MG IVP (07:47)
[2024-01-07] MEDS: ACETAMINOPHEN 500 MG TABLET PO (07:47)
[2024-01-07 07:52] LABS: Bacteria Urine TRACE #/HPF (NONE SEEN); Cast Seen? NONE SEEN #/LPF (NONE SEEN); Crystals Seen? None Seen #/HPF (None Seen); Mucus Urine NONE SEEN (NONE SEEN); RBC Urine 0-2 #/HPF (0-2); Squamous Epithelial Cell Urine RARE #/LPF (NONE/RARE); WBC Urine 0-2 #/HPF (NONE SEEN)
[2024-01-07 07:56] LABS: Lactate/Lactic Acid 0.6 mmol/L (0.4-2.0)
[2024-01-07 07:57] LABS: Alanine Aminotransferase 23 U/L (14-59); Albumin Globulin Ratio 1.1; Albumin Level 3.7 g/dL (3.4-5.0); Alkaline Phosphatase 79 U/L (46-116); Anion Gap 19.1; Aspartate Amino Transferase 21 U/L (15-37); BUN Creatinine Ratio 17.2; Bilirubin Total 0.6 mg/dL (0.2-1.0); Calcium 8.9 mg/dL (8.5-10.1); Chloride 105 mmol/L (98-107); Estimated GFR (African America >60 (>=60 mL/min/1.73m^2); Estimated GFR (Non-African Ame >60 (>=60 mL/min/1.73m^2); Globulin 3.3 g/dL; Glucose 105 mg/dL (74-106); Potassium 4.1 mmol/L (3.5-5.1); Sodium 143 mmol/L (136-145); Troponin I High Sensitivity 5.9 pg/mL (4.0-51.3)
[2024-01-07 09:32] VITALS: BP 102/75; PULSE 72; O2SAT 100
== END 2024-01-07 10:02 | disposition home or self-care (01) ==
PROVIDERS: Emergency Provider Emergency Medicine; PCP Family Medicine
DX: R10.9 Unspecified abdominal pain (principal); R11.0 Nausea; Z90.49 Acquired absence of other specified parts of digestive tract; K57.30 Diverticulosis of large intestine without perforation or abscess without bleeding; Z90.710 Acquired absence of both cervix and uterus; Z98.51 Tubal ligation status
CPT/HCPCS: 36415; 74177; 80053; 81001; 83605; 83690; 84484; 85025; 96374; 96375; 99284; J2405; J2765; Q9967

== ENCOUNTER 2024-02-11 07:12 | Outpatient (OUT) | payer MEDICARE, SELFPAY ==
--- OUTSIDE RECORDS SUMMARY | 2024-02-11 07:13 | XMS_ITS | CCD ---
Author Organization [facility] Care Team Providers Care Head Esthetician Name Role Phone ALEJANDRO, DR ALLEY Beasley [...] Unavailable Katelyn Kaufman MD Primary Care Provider [phone] DO Jatin Hayden Attending Provider [phone] Jatin Hayden Admitting Unavailable Jatin Hayden Attending Unavailable Jas Kelly Admitting Unavailable Jas Kelly Attending Unavailable Katelyn Kaufman Primary Care Unavailable JATIN HAYDEN Attending Unavailable KATELYN KAUFMAN Referring Unavailable JATIN HAYDEN Attending Unavailable Allergies Allergy Classification Reported Allergen(s) Allergy Type Date of Onset Reaction(s) Facility (7 sources) levoFLOXacin; Translations: [levofloxacin] Drug Allergy 4 Muscle pain (finding), Other [facility] [place] (5 sources) Non-steroidal anti-inflammato ry agent Propensity [...] Range Facil ity [place] 12-14-2023 L Specimen: [id number] Received: 12/16/23 Status: LUIS Mitchell Num: [id number] Spec Type: Surgical Subm Dr: Jatin Hayden DO Tissues: A Gallbladder (GB) Procedures: HE, Gross/Micro L3 Age/ Patient Sex Location Account Attending Physician Shanique Camargo 67/F LABELL [id number] Jatin Hayden DO SPEC NUM: [id number] RECD: 12/16/23 STATUS: LUIS MITCHELL NUM: [id number] ROSENDO: 12/14/[address]: Jatin Hayden DO ENTERED: 12/16/[address]: Ifrah Combs SPEC TYPE: Surgical DEPT: KATY SHETTY ENTERED BY: [id number] RECV BY: [id number] ORDERED: HE, Gross/Micro L3 ORDERED: HE, Gross/Micro [...] The mucosal surface is green and velvety. Farm Management Agent sections are submitted in cassette A1. Microscopic Description Microscopic examination is performed. Specimen: [id number] Received: 12/16/23 Status: LUIS Werneryadira Num: [id number] Spec Type: Surgical Subm Dr: Jatin Hayden DO Tissues: A Gallbladder (GB) Procedures: HE, Gross/Micro L3 Patient: Shanique Camargo [id number] (Continued) Specimen: [id number] Received: 12/16/23 (Continued) Signed (signature on file) Nghia Ramirez MD 12/21/236 Specimen: [id number] Received: 12/16/23 Status: LUIS Mitchell Num: [id number] Spec Type: Surgical Subm Dr: Jatin Hayden DO Tissues: A Gallbladder (GB) Procedures: Debo SALGUERO/Crystal L3 Patient: Shanique Camargo [id number] (Continued) Specimen: [id number] Received: 12/16/23 (Continued) CPT Codes 21425 Specimen: [id number] Received: 12/16/23 Status: LUIS Stephen Num: [id number] Spec Type: Surgical Subm Dr: Jatin Hayden DO Tissues: A Gallbladder (GB) Procedures: Debo SALGUERO/Crystal L3 Patient: Shanique Camargo [id number] (Continued) Signed (signature on file) Nghia Ramirez MD 12/21/23 1056 Normal [facility] Ambulatory Visit Summaryon 0 11-16-2023 [...] for choosing us for your care. Normal [facility] MG MAMM SCREEN 3D TERA CADon 07-04-2021 MG MAMM SCREEN 3D TERA CAD Patient: SHANIQUE CAMARGO Exam Date: 07/04/2021 : 1955 Gender:F Ordering : DR KATELYN KAUFMAN . Admission #: [id number] Family : Order #: [id number] CLICK HERE TO VIEW EXAM RADIOLOGY REPORT [...] colon cancer at age 70. LOCATION: [facility] BREAST COMPOSITION: Almost entirely fatty. FINDINGS: [...] MD on 07/04/2021 at 15:03 Normal [facility] Covid-19 PCR (CVDTBH)on 08-22 SARS-CoV-2 (COVID-19) RNA JESSENIA+probe Ql (Unsp spec) Not detected Normal NOT DETECTED [facility] Comment on above: Result Comment: This test is not yet approved or cleared by the [place] FDA. When there are no FDA-approved or cleared tests available, and other criteria are met, FDA can make tests available under an emergency access mechanism called an Emergency Use Authorization (EUA). The EUA for this test is supported by the [place] Inspector of Health and Human Service's (HHS's) declaration [...] SARS-CoV-2. Performed By: #### C VDTB #### [facility] [address] [place] [address] Josef Ibarraen BNPon 08-22-2020 Natriuretic peptide B (Bld) [Mass/Vol] 168.0 pg/mL Normal <=900.0 [facility] Comment on above: Performed By: #### B WAREHOUSE INVENTORY CLERK, CMP #### [facility] [address] [place] [address] Josefbrandt Ibarraen CBC AUTO DIFFon 08-22-2020 BASO # 0.0 103/ul Normal 0.0-0.1 [facility] Comment on above: Performed By: #### C BC ####[facility] [address] [place], [place] [id number] Xiomara Basophils/100 WBC (Bld) 0.6 % Normal 0.2-2.0 [facility] Comment on above: Performed By: #### C BC ####[facility] [address] [place], [place] [address]Gerken Xiomara EO # 0.1 103/ul Normal 0.0-0.7 [facility] Comment on above: Performed By: #### C BC ####[facility] [address] [place], [place] [address]Gerken Xiomara Eosinophils/100 WBC (Bld) 0.9 % Normal 0.9-7.0 [facility] Comment on above: Performed By: #### C BC ####[facility] [address] [place] [address] Xiomara Erythrocyte distribution width (RBC) [Ratio] 12.7 % Normal 11.0-15.0 [facility] Comment on above: Performed By: #### C BC ####[facility] [address] [place] [address] Xiomara Hematocrit (Bld) [Volume fraction] 40.3 % Normal 36.0-48.0 [facility] Comment on above: Performed By: #### C BC ####[facility] [address] [place] [address] Xiomara Hemoglobin (Bld) [Mass/Vol] 12.9 g/dL Normal 12.0-16.0 [facility] Comment on above: Performed By: #### C BC ####[facility] [address] [place] [address] Xiomara IG # 0.01 10e3/ul Normal 0.00-0.03 [facility] Comment on above: Performed By: #### C BC ####[facility] [address] [place] [address] Xiomara IG % 0.1 % Normal 0.0-0.5 [facility] Comment on above: Performed By: #### C BC ####[facility] [address] [place] [address] Xiomara LYMPH # 2.4 103/ul Normal 1.2-3.8 [facility] Comment on above: Performed By: #### C BC ####[facility] [address] [place] [address] Xiomara Lymphocytes/100 WBC (Bld) 34.5 % Normal 20.5-60.0 [facility] Comment on above: Performed By: #### C BC ####[facility] [address] [place] [address] Xiomara MANUAL DIFF REQ NO Normal [facility] Comment on above: Performed By: #### C BC ####[facility] [address] [place] [address] Xiomara MCH (RBC) [Entitic mass] 30.0 pg Normal 26.7-34.0 [facility] Comment on above: Performed By: #### C BC ####[facility] [address] [place], [place] [address]brandt Solano MCHC (RBC) [Mass/Vol] 32.0 g/dL Normal 29.9-35.2 [facility] Comment on above: Performed By: #### C BC ####[facility] [address] [place], [place] [address]Josef Solano MCV (RBC) [Entitic vol] 93.7 fL Normal 81.0-99.0 [facility] Comment on above: Performed By: #### C BC ####[facility] [address] [place] [address] Xiomara MONO # 0.7 103/ul Normal 0.3-0.8 [facility] Comment on above: Performed By: #### C BC ####[facility] [address] [place], [place] [address]brandt Solano Monocytes/100 WBC (Bld) 9.3 % Normal 1.7-12.0 [facility] Comment on above: Performed By: #### C BC ####[facility] [address] [place], [place] [address]brandt Solano NEUT # 3.8 103/ul Normal 1.4-6.5 [facility] Comment on above: Performed By: #### C BC ####[facility] [address] [place], [place] [address]ken Xiomara Neutrophils/100 WBC (Bld) 54.6 % Normal 43.0-75.0 [facility] Comment on above: Performed By: #### C BC ####[facility] [address] [place], [place] [address]Gerken Xiomara Platelet mean volume (Bld) [Entitic vol] 11.0 fL Normal 9.5-13.5 [facility] Comment on above: Performed By: #### C BC ####[facility] [address] [place] [address] Xiomara PLT 211 103/ul Normal 150-450 [facility] Comment on above: Performed By: #### C BC ####[facility] [address] [place] [id number] Solano RBC 4.30 106/ul Normal 4.20-5.40 [facility] Comment on above: Performed By: #### C BC ####[facility] [address] [place] [address]Josef Solano WBC 7.0 103/ul Normal 4.0-11.0 [facility] Comment on above: Performed By: #### C BC ####[facility] [address] [place] [address]Josef Solano D-DIMERon 08-22-2020 D-DIMER 0.25 mg/L FEU Normal 0.19-0.50 [facility] Comment on above: Performed By: #### D DIM #### [facility] [address] [place] [address] Josef Solano D-DIMER COMMENTS SEE BELOW Normal [facility] Comment on above: Result Comment: Incr [...] hospitalization. Performed By: #### D DIM #### [facility] [address], [place] [address] Josef Xiomara PROF 14(COMP METB)on 021 Albumin [Mass/Vol] 3.8 g/dL Normal 3.5-5.0 [facility] Comment on above: Performed By: #### B WAREHOUSE INVENTORY CLERK, CMP #### [facility] [address], [place] [address] Josef Ibarraen Albumin/Globulin [Mass ratio] 1.2 {ratio} Normal [facility] Comment on above: Performed By: #### B WAREHOUSE INVENTORY CLERK, CMP #### [facility] [address], [place] [address] Josef Xiomara ALP [Catalytic activity/Vol] 81 U/L Normal 38-126 [facility] Comment on above: Performed By: #### B WAREHOUSE INVENTORY CLERK, CMP #### [facility] [address], [place] [address] Josef Xiomara ALT [Catalytic activity/Vol] 22 U/L Normal 9-52 [facility] Comment on above: Performed By: #### B WAREHOUSE INVENTORY CLERK, CMP #### [facility] [address] [place] [address] Josef Xiomara Anion gap [Moles/Vol] 11.9 mmol/L Normal [facility] Comment on above: Performed By: #### B WAREHOUSE INVENTORY CLERK, CMP #### [facility] [address] [place] [address] Josef Xiomara AST [Catalytic activity/Vol] 18 U/L Normal 14-36 [facility] Comment on above: Performed By: #### B WAREHOUSE INVENTORY CLERK, CMP #### [facility] [address] [place], [place] [address] Josef Xiomara Bilirubin [Mass/Vol] 0.4 mg/dL Normal 0.2-1.3 [facility] Comment on above: Performed By: #### B WAREHOUSE INVENTORY CLERK, CMP #### [facility] [address] [place], [place] [address] Josef Xiomara Calcium [Mass/Vol] 8.7 mg/dL Normal 8.4-10.2 [facility] Comment on above: Performed By: #### B WAREHOUSE INVENTORY CLERK, CMP #### [facility] [address] [place] [address] Josef Xiomara Chloride [Moles/Vol] 104 mmol/L Normal 98-107 [facility] Comment on above: Performed By: #### B WAREHOUSE INVENTORY CLERK, CMP #### [facility] [address] [place] [address] Josef Xiomara CO2 [Moles/Vol] 29.1 mmol/L Normal 22.0-30.0 The [facility] Comment on above: Performed By: #### B WAREHOUSE INVENTORY CLERK, CMP #### [facility] [address] [place] [address] Josef Xiomara Creatinine [Mass/Vol] 0.59 mg/dL Normal 0.52-1.04 [facility] Comment on above: Performed By: #### B WAREHOUSE INVENTORY CLERK, CMP #### [facility] [address] [place] [address] Josef Xiomara EGFR-AF TAIWANESE >60 Normal >=60 [facility] Comment on above: Performed By: #### B WAREHOUSE INVENTORY CLERK, CMP #### [facility] [address] [place] [address] Josef Xiomara EGFR-NON AF TAIWANESE >60 Normal >=60 [facility] Comment on above: Performed By: #### B WAREHOUSE INVENTORY CLERK, CMP #### [facility] [address] [place] [address] Josef Xiomara Globulin (S) [Mass/Vol] 3.3 g/dL Normal [facility] Comment on above: Performed By: #### B WAREHOUSE INVENTORY CLERK, CMP #### [facility] [address] [place] [address] Josef Xiomara Glucose [Mass/Vol] 72 mg/dL Critically low 74-106 [facility] Comment on above: Performed By: #### B WAREHOUSE INVENTORY CLERK, CMP #### [facility] [address] [place] [address] Josef Xiomara Potassium [Moles/Vol] 4.0 mmol/L Normal 3.4-5.0 [facility] Comment on above: Performed By: #### B WAREHOUSE INVENTORY CLERK, CMP #### [facility] [address] [place] [address] Josef Xiomara Protein [Mass/Vol] 7.1 g/dL Normal 6.1-8.2 [facility] Comment on above: Performed By: #### B WAREHOUSE INVENTORY CLERK, CMP #### [facility] [address] [place] [address] Josef Xiomara Sodium [Moles/Vol] 141 mmol/L Normal 137-145 [facility] Comment on above: Performed By: #### B WAREHOUSE INVENTORY CLERK, CMP #### [facility] [address] [place] [address] Josef Xiomara Urea nitrogen [Mass/Vol] 20.0 mg/dL Critically high 7.0-17.0 [facility] Comment on above: Performed By: #### B WAREHOUSE INVENTORY CLERK, CMP #### [facility] [address] [place] [address] Josef Solano Urea nitrogen/Creatinine [Mass ratio] 33.9 mg/mg Normal [facility] Comment on above: Performed By: #### B WAREHOUSE INVENTORY CLERK, CMP #### [facility] [address] [place] [address] Josef Solano CREATININEon 07-25-2020 Creatinine [Mass/Vol] 0.63 mg/dL Normal 0.52-1.04 [facility] Comment on above: Performed By: #### C ZEYAD #### [facility] [address] [place] [address] Josef Solano EGFR-AF TAIWANESE >60 Normal >=60 The [facility] Comment on above: Performed By: #### C ZEYAD #### [facility] [address] [place] [address] Josef Solano EGFR-NON AF TAIWANESE >60 Normal >=60 [facility] Comment on above: Performed By: #### C ZEYAD #### [facility] [address] [place] [address] PELVIS W CONon 07-25-2020 [...] by: ALLEY ALLEN Date: 2020-07-25 14:11 Normal [facility] Vital Signs Date Time Vital Sign Value Performing Clinician Facility 12-27-2023 12:51-0500 Body height 157.5 cm [employer] Phone: [facility] 12-27-2023 12:51-0500 Body mass index (BMI) [Ratio] 27.62 kg/m2 [employer] Phone: [facility] [employer] 12-27-2023 12:51-0500 Body weight 68.49 kg [employer] Phone: [facility] 12-27-2023 12:51-0500 Diastolic blood pressure 74 mm[Hg] [employer] Phone: [facility] 12-27-2023 12:51-0500 Heart rate 83 /min [employer] Phone: [facility] 12-27-2023 12:51-0500 Respiratory rate 12 /min [employer] Phone: [facility] 12-27-2023 12:51-0500 SaO2% (BldA) [Mass fraction] 96 % [employer] Phone: [facility] 12-27-2023 12:51-0500 Systolic blood pressure 118 mm[Hg] [employer] Phone: [facility] 12-06-2023 10:57-0400 Body height 152.4 cm [employer] Phone: [facility] 12-06-2023 10:57-0400 Body mass index (BMI) [Ratio] 29.88 kg/m2 [employer] Phone: [facility] 12-06-2023 10:57-0400 Body weight 69.4 kg Jatin Hayden DO Work Phone: [facility] 12-06-2023 10:57-0400 Diastolic blood pressure 68 mm[Hg] Jatin Hayden DO Work Phone: [facility] 12-06-2023 10:57-0400 Systolic blood pressure 122 mm[Hg] Jatin Hayden DO Work Phone: [facility] 11-16-2023 15:08-0400 Blood Pressure Location [employer] [facility] 11-16-2023 15:08-0400 Diastolic blood pressure 76 mm[Hg] [employer] [facility] 11-16-2023 15:08-0400 Heart rate 70 /min Hayes Agolo [facility] 11-16-2023 15:08-0400 Respiratory rate 16 /min Hayes Agolo [facility] 11-16-2023 15:08-0400 Systolic blood pressure 136 mm[Hg] Hayes Agolo [facility] Encounters Encounter Date Encounter Type Care Provider Facility Start: 12-27-2023 End: 12-27-2023 Bamboo flowsheet Jatin Hayden [employer] Work Phone: [facility] Start: 12-27-2023 End: 12-27-2023 Bamboo flowsheet Jatin Hayden DO Work Phone: [facility] Start: 12-27-2023 End: 12-27-2023 Postop follow up visit related to original px Jatin Hayden DO Work Phone: [facility] [employer] [facility] Comment on above: Status post cholecys tectomy (Primary Dx) Start: 12-27-2023 End: 12-27-2023 ambulatory JATINANNA HAYDEN Not Available Start: 12-14-2023 End: 12-14-[address] [facility] Work Phone: Start: 12-14-2023 End: 12-14-2023 Departed Referred DO Jatin Hayden Work Phone: [facility]-LAB Path [facility] [place] [facility] Start: 12-06-2023 End: 12-06-2023 Bamboo flowsheet [...] Start: 11-24-2023 End: 11-24-2023 ambulatory Hayes PEÑA Facility:[id number] Start: 11-16-2023 End: 11-16-2023 ambulatory Hayes PEÑA Facility:[facility] Start: 11-16-2023 End: 11-16-2023 Patient encounter procedure Hayes PEÑA [facility] [place] Start: 09-14-2023 End: 09-14-2023 ambulatory MD Katelyn Kaufman Work Phone: [facility] Work Phone: Start: 09-14-2023 End: 09-14-2023 Discharged Recurring MD Katelyn Kaufman Work Phone: [facility]-Physical Therapy [place] Start: 07-04-2021 End: 07-05-[address] KATELYN KAUFMAN Facility:[facility] Start: 03-10-2021 End: 01-18-[address] KATELYN KAUFMAN Facility:[facility] Start: 09-09-2020 Encounter for prepro cedural laboratory examination DR HAYES PEÑA [facility] Start: 09-04-2020 End: 09-04-[address] HAYES PEÑA Facility:[facility] Start: 08-31-2020 End: 09-01-[address] HAYES PEÑA Facility:[facility] Start: 08-31-2020 End: 09-01-2020 Encounter for preprocedural laboratory examination DR HAYES PEÑA Facility:[facility] Start: 08-30-2020 Encounter for prepro cedural cardiovascular examination DR HAYES PEÑA [facility] Start: 08-22-2020 End: 08-23-[address] [...] [facility] [address] [place] [address] Jatin Hayden DO [address] [place] [address] Arrived [facility] Comment on above: Arrived Start: 12-06-2023 End: 12-06-2023 Patient encounter procedure 12/06/2023 11:00 AM EDT Office Visit [facility] [address] [place] [address] [place] [address] Jatin Hayden DO [address] [place] [address] Arrived [facility] Comment on above: Arrived Start: 10-24-2023 Influenza vaccination Influenza Vacc ine (#1) [facility] Start: 2018 Pneumococcal Vaccine : 65+ Years (1 of 1 - PCV) Pneumococcal Vaccine: 65+ Years (1 of 1 - PCV) [facility] Start: 09-23-2017 Screening for malign ant neoplasm of breast Mammogram [facility] Start: 1955 Screening for malign ant neoplasm of colon [facility] Immunizations Immunization Date Immunization Notes Care Provider Isabella mata 01-07-2018 influenza virus vaccine, unspecified formulation Jatin Hayden DO Work Phone: [facility] NEGATED: Highlighted row has not occurred!04-12-2019 influenza virus vaccine, live, attenuated, for intranasal use Hayes PEÑA [facility] Payers Date Payer Category Payer Self-pay [id number] 2023 Medicare (Managed Care) [facility] MEDICARE [id number] 2023 Private Health Insurance [id number] 1961 Medicare [id number] 1961 Medicare [id number] 1955 Unknown [id number] 2.16.840.1.032879.3.579.2. 593 1955 Unknown [id number] 2.16.840.1.944367.3.579.2. 593 1955 Unknown [id number] 2.16.840.1.901793.3.579.2. 593 1955 Unknown [id number] 2.16.840.1.360876.3.579.2. 593 1955 Unknown [id number] 2.16.840.1.201907.3.579.2. 593 1955 Unknown [id number] 2.16.840.1.075610.3.579.2. 593 1955 Unknown [id number] 2.16.840.1.685108.3.579.2. 593 1955 Unknown [id number] 2.16.840.1.035016.3.579.2. 727 1955 Unknown [id number] 2.16.840.1.461380.3.579.2. 727 1955 Unknown [id number] 2.16.840.1.813329.3.579.2. 1259 1955 Unknown [id number] 2.16.840.1.134322.3.579.2. 1259 Medicare Medicare [id number] Unknown [id number] 2.16.840.1.992065.3.579.2. 531 Unknown [id number] 2.16.840.1.354088.3.579.2. 531 Social History Date Type Detail Facility Tobacco smoking status NHIS Unknown if ever smoked [facility] Work Phone: Start: 1955 Sex Assigned At Female F [facility] Start: 11-16-2023 Tobacco smoking status Never smoked tobacco (finding) [facility] Tobacco smoking status Never [facility] Sex Assigned At Female [facility] Tobacco smoking status KYIS Tobacco smoking consumption unknown [facility] Start: 1955 Sex assigned at Not on file [facility] Healthcare Functional Status Date Assessment Result Facility 11-16-2023 Functional Status N/A [facility] Clinical Notes 07-12-2020 to 12-27-2023 Jatin [...] Reese Hayden DO documented in this encounter [facility] 12-06-2023 History of Present illness Narrative General [...] Reese Hayden DO documented in this encounter [facility] 11-16-2023 Note General Surgery Offi ce/Clinic Note [...] Dis Tab, 4 (more content not included)... [facility] Comment on above: Result Comment: Elec tronically Signed By: CASEY DA SILVA, Hayes Goow[place]\Date and Time Signed: 11/16/23 15:49 EDT 03-10-2021 Note PROCEDURE: XR HAND R T MIN 3V COMPARISON: 07/12/2020 hand HISTORY: Pain in right thumb FINDINGS: BONES:No acute fracture or dislocation. 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 No visible soft tissue swelling. EFFUSION:None visible. OTHER: Negative. IMPRESSION: Degenerative changes, no acute abnormality Electronically authenticated by: EDMOND CAAL Date: 2021-03-10 13:48 [facility] [facility] 09[facility] Note OPERATIVE NOTE OPERATION DATE: 09-04-20 [...] Recovery Room in good condition. cc:Dr. Kaufman. [facility] Signed and Approved by: DR HAYES PEÑA . 09/06/2020 08:06:00 [facility] 07-12-2020 Note PROCEDURE: XR HAND B [...] by: ALLEY ALLEN Date: 2020-07-12 13:58 [facility] Evaluation + Plan note No data available for this section [facility] Evaluation note No assessment inform ation available [facility] Work Phone: Evaluation note Diagnosis Biliary dyskinesia- Primary Other specified disorder of gallbladder [facility] Diagnosis Status post cholecystectomy- Primary Other acquired absence of organ [facility] No data available for this section [facility] Progress note No data available for this section [facility] Summary Purpose Family History No Family [...] and content) DATE CREATED AUTHOR 07/12/2021 [facility] DATE CREATED AUTHOR AUTHOR'S ORGANIZ ATION 12/06/2023 [facility] DATE CREATED AUTHOR AUTHOR'S ORGANIZ ATION 12/22/2023 [facility] DATE CREATED AUTHOR AUTHOR'S ORGANIZ ATION 12/28/2023 [facility] EPIC Care Teams (unrecognized sec tion and content) Team Status: Active Member Role Status Dates Katelyn Kaufman MD Primary Care Provider Active Team Status: Inactive Member Role Status Dates Katelyn Kaufman MD Primary Care Provider Active Start: September 14, 2023 End: September 14, 2023 Jas Kelly DO Attending Provider Active S tart: September 14, 2023 End: September 14, 2023 Head Esthetician Relationship Specialty Start Date End Date Katelyn Kaufman MD [address] [place] [id number] PCP - General Family Medicine 12/06/23 Head Esthetician Relationship Specialty Start Date End Date Katelyn Kaufman MD [address] [place] [phone] PCP - General [facility] 12/06/23 Team Status: Inactive Member Role Status Dates Jatin Hayden DO Attending Provider Active Star t: December 14, 2023 End: December 14, 2023 Head Esthetician Relationship Specialty Start Date End Date Katelyn Kaufman MD [address] [place] [phone] PCP - General Family [facility] 12/06/23 Goals (unrecognized section and content) [...] BE BASED ON THE PRIMARY CLINICAL RECORDS. [employer] provides no warranty or guarantee of the accuracy or completeness of information in this document.
--- NOTE | 2024-02-11 07:15 | US_ITS ---
The [address] [address] Patient Name: MARY JO ROBLES MRN: [id number] date: 1955 Sex: F Assigned Patient Location: [place] Current Patient Location: [place] Accession/Order Number: [id number] Exam Date: 02/11/2024 07:30 Report Date: 02/11/2024 10:52 At the request of: KATELYN YOON Procedure: US abdomen complete US abdomen complete, 02/11/2024 7:30 AM EST INDICATION: Upper Abdominal Pain COMPARISON: Prior CT of the abdomen dated 01/07/2024 and ultrasound dated 12/02/2023 Findings: The proximal abdominal aorta measures 2.6 centimeter, the midportion measures 1.9 centimeter, and infrarenal abdominal aorta measures 1.8 centimeter. IVC is patent. Given the limitation of the ultrasound for evaluation of the pancreas, the visualized portion of pancreas is unremarkable. The liver is mildly heterogeneous and hyperechogenic with no definite focal lesion. The main portal vein is patent with hepatopetal portal flow. Gallbladder is partially resected. There is no ultrasound Mayfield's sign. The proximal common bile duct measures 4.4 mm. Multiple echogenic lesions within the spleen are noted likely due to prior granulomatous disease. It measures 9.3 cm in the largest axis. The kidneys are normal in size measuring 9.9 x 4.9 x 4.9 cm on the right and 8.8 x 3.7 x 4.1 cm on the left side. No hydronephrosis is noted. US/US abdomen complete IMPRESSION: No significant abnormality in the current study. No significant interval change. Electronically authenticated by: DANA MARTINEZ Date: 02/11/2024 10:52
== END 2024-02-11 07:13 | disposition home or self-care (01) ==
LOC: US 07:12
PROVIDERS: PCP Family Medicine; Visit Provider Family Medicine
DX: R10.10 Upper abdominal pain, unspecified (principal)
CPT/HCPCS: 76700

== ENCOUNTER 2024-03-01 06:42 | Outpatient (OUT) | payer MEDICARE, SELFPAY ==
--- NOTE | 2024-03-01 06:43 | NM_ITS ---
The [address] [address] Patient Name: MARY JO ROBLES MRN: [id number] date: 1955 Sex: F Assigned Patient Location: [place] Current Patient Location: [place] Accession/Order Number: [id number] Exam Date: 03/01/2024 06:40 Report Date: 03/01/2024 09:55 At the request of: KATELYN YOON Procedure: MI hepatobiliary wo pharm EXAMINATION: MI hepatobiliary wo pharm HISTORY: ABDOMINAL PAIN COMPARISON: No relevant comparison available. TECHNIQUE: Radionuclide hepatobiliary imaging was performed after intravenous injection of Tc-99m OSMAN derivative with sequential acquisitions every 1 minute for one hour. . FINDINGS: LIVER: Normal, prompt and uniform radiotracer uptake and clearing. BILIARY DUCTS: Normal radioisotopic biliary excretion. GALLBLADDER: Not visualized consistent with known cholecystectomy INTESTINE: Normal with no evidence of common biliary ductal obstruction. OTHER: Negative. MI/MI hepatobiliary wo pharm IMPRESSION: No evidence of a biliary leak Electronically authenticated by: EDMOND CAAL Date: 03/01/2024 09:55
== END 2024-03-01 06:43 | disposition home or self-care (01) ==
LOC: NM 06:42
PROVIDERS: PCP Family Medicine; Visit Provider Family Medicine
DX: R10.10 Upper abdominal pain, unspecified (principal)
CPT/HCPCS: 78226; A9537

== ENCOUNTER 2024-03-06 11:57 | Outpatient (OUT) | payer MEDICARE, SELFPAY ==
--- OUTSIDE RECORDS SUMMARY | 2024-03-06 12:14 | XMS_ITS | CCD ---
Author Organization [facility] [employer] [facility] Care Team Providers Care Duck Farmer Name Role Phone ALEJANDRO, DR ALLEY Beasley [...] Attending Provider Katelyn Kaufman Primary Care Physician Katelyn Kaufman MD Primary Care Provider [phone] DO Jatin Hayden Attending Provider [phone] Jatin Hayden Admitting Unavailable Jatin Hayden Attending Unavailable Jas Kelly Admitting Unavailable Jas Kelly Attending Unavailable Katelyn Kaufman Primary Care Unavailable JATIN HAYDEN Attending Unavailable KATELYN KAUFMAN Referring Unavailable JATIN HAYDEN Attending Unavailable Josseline Diggs Attending Unavailable Satinder Gamino Attending Unavaila Katelyn Ring Referring Unavailable Hayes PEÑA Attending Unavailable Hayes PEÑA Attending Unavailable Allergies Allergy Classification Reported Allergen(s) Allergy Type Date of Onset Reaction(s) Facility (7 sources) levoFLOXacin; Translations: [levofloxacin] Drug Allergy 4 Muscle pain (finding), Other [facility] [place] (5 sources) Non-steroidal anti-inflammato ry agent Propensity [...] Results Test Name Value Interpretation Reference Range Roberta Ross 12-14-2023 L Specimen: [id number] Received: 12/16/23 Status: LUIS Mitchell Num: [id number] Spec Type: Surgical Subm Dr: Jatin Hayden DO Tissues: A Gallbladder (GB) Procedures: HE, Gross/Micro L3 Age/ Patient Sex Location Account Attending Physician ChanceShanique leyva 67/F [place] [id number] Jatin Hayden DO SPEC NUM: [id number] RECD: 12/16/23 STATUS: LUIS MITCHELL NUM: [id number] ROSENDO: 12/14/[address]: Jatin Hayden DO ENTERED: 12/16/23 [facility] DR: Ifrah Combs SPEC TYPE: Surgical DEPT: KATY SHETTY ENTERED BY: [id number] RECV BY: [id number] ORDERED: HE, Gross/Micro L3 ORDERED: HE, Gross/Micro [...] The mucosal surface is green and velvety. Security Operations Engineer sections are submitted in cassette A1. Microscopic Description Microscopic examination is performed. Specimen: [id number] Received: 12/16/23 Status: LUIS Mitchell Num: [id number] Spec Type: Surgical Subm Dr: Jatin Hayden DO Tissues: A Gallbladder (GB) Procedures: HE, Gross/Micro L3 Patient: Shanique Camargo [id number] (Continued) Specimen: [id number] Received: 12/16/23 (Continued) Signed (signature on file) Nghia Ramirez MD 12/21/23 1056 Specimen: [id number] Received: 12/16/23 Status: LUIS Mitchell Num: [id number] Spec Type: Surgical Subm Dr: Jatin Hayden DO Tissues: A Gallbladder (GB) Procedures: Sadie SALGUERO L3 Patient: Shanique Camargo Paul [id number] (Continued) Specimen: [id number] Received: 12/16/23 (Continued) CPT Codes 16429 Specimen: [id number] Received: 12/16/23 Status: LUIS Mitchell Num: [id number] Spec Type: Surgical Subm Dr: Jatin Hayden DO Tissues: A Gallbladder (GB) Procedures: Debo SALGUERO/Crystal L3 Patient: Yamini Camargocooper Miller [id number] (Continued) Signed (signature on file) Nghia Ramirez MD 12/21/23 1056 Normal [facility] Ambulatory Visit Summaryon 0 11-16-2023 Ambulatory Visit Summary Ambulatory Visit Summary SHANIQUE CAMARGO :1955 Visit Date:11/16/2023 Ambulatory Visit Instructions Your Care Team Attending Physician - CASEY DA SILVA, Hayes Beasley Primary Care Physician - Shae DA SILVA, Katelyn Referring Physician - Shae DA SILVA, Katelyn This Is Your Medications List Contact prescribing [...] for choosing us for your care. [facility] MG MAMM SCREEN 3D TERA CADon 07-04-2021 MG MAMM SCREEN 3D TERA CAD Patient: SHANIQUE CAMARGO Exam Date: 07/04/2021 : 1955 Gender:F Ordering : DR KATELYN KAUFMAN . Admission #: [id number] Family : Order #: [id number] CLICK HERE TO VIEW EXAM RADIOLOGY REPORT [...] cancer at age 70. LOCATION: [facility] BREAST COMPOSITION: Almost entirely fatty. FINDINGS: [...] on 07/04/2021 at 15:03 Normal [facility] Covid-19 PCR (CVDTB)on 08-22 SARS-CoV-2 (COVID-19) RNA JESSENIA+probe Ql (Unsp spec) Not detected Normal NOT DETECTED [facility] Comment on above: Result Comment: This test is not yet approved or cleared by the [place] FDA. When there are no FDA-approved or cleared tests available, and other criteria are met, FDA can make tests available under an emergency access mechanism called an Emergency Use Authorization (EUA). The EUA for this test is supported by the Information Assoc of Health and Human Service's (HHS's) declaration [...] Performed By: #### C VDTB #### [facility] [address] [place] [address] Josef Solano BNPon 08-22-2020 Natriuretic peptide B (Bld) [Mass/Vol] 168.0 pg/mL Normal <=900.0 [facility] Comment on above: Performed By: #### B FACILITIES ENGINEER, CMP #### [facility] [address] [place] [address] Josefbrandt Ibarraen CBC AUTO DIFFon 08-22-2020 BASO # 0.0 103/ul Normal 0.0-0.1 [facility] Comment on above: Performed By: #### C BC ####[facility] [address] [place] [id number] Xiomara Basophils/100 WBC (Bld) 0.6 % Normal 0.2-2.0 [facility] Comment on above: Performed By: #### C BC ####[facility] [address] [place], [place] [address]Zguaga Xiomara EO # 0.1 103/ul Normal 0.0-0.7 [facility] Comment on above: Performed By: #### C BC ####[facility] [address]6056 [place], [place] [address]Yfbefb Xiom[place] Eosinophils/100 WBC (Bld) 0.9 % Normal 0.9-7.0 [facility] Comment on above: Performed By: #### C BC ####[facility] N[address] [place] Erythrocyte distribution width (RBC) [Ratio] 12.7 % Normal 11.0-15.0 [facility] Comment on above: Performed By: #### C BC ####[facility] Msizpmrpne[address] [place] Hematocrit (Bld) [Volume fraction] 40.3 % Normal 36.0-48.0 [facility] Comment on above: Performed By: #### C BC ####[facility] Tx[address] [place] Hemoglobin (Bld) [Mass/Vol] 12.9 g/dL Normal 12.0-16.0 [facility] Comment on above: Performed By: #### C BC ####[facility] [address] [place] [address] Xiom[place] IG # 0.01 10e3/ul Normal 0.00-0.03 [facility] Comment on above: Performed By: #### C BC ####[facility] [address] [place] [address] Xiom[place] IG % 0.1 % Normal 0.0-0.5 [facility] Comment on above: Performed By: #### C BC ####[facility] Uzt[address] [place] LYMPH # 2.4 103/ul Normal 1.2-3.8 [facility] Comment on above: Performed By: #### C BC ####[facility] Ohdwktwlma4396 [address] [place] Lymphocytes/100 WBC (Bld) 34.5 % Normal 20.5-60.0 [facility] Comment on above: Performed By: #### C BC ####[facility] Qmpiwqvnly29[address] [place] MANUAL DIFF REQ NO Normal [facility] Comment on above: Performed By: #### C BC ####[facility] Qbmlzui[address]v5393 [place], [place] [address]Cfybjc Karen MCH (RBC) [Entitic mass] 30.0 pg Normal 26.7-34.0 [facility] Comment on above: Performed By: #### C BC ####[facility] Tslptnfpzk0248 [place], [place] [address]Uoevqb Karen MCHC (RBC) [Mass/Vol] 32.0 g/dL Normal 29.9-35.2 [facility] Comment on above: Performed By: #### C BC ####[facility] [address] [place] [address]Wuplkl Xiomara MCV (RBC) [Entitic vol] 93.7 fL Normal 81.0-99.0 [facility] Comment on above: Performed By: #### C BC ####[facility] [address] [place], [place] [address]Gerken Xiom[place] MONO # 0.7 103/ul Normal 0.3-0.8 [facility] Comment on above: Performed By: #### C BC ####[facility] [address] [place], [place] [address]Gerken Xiomara Monocytes/100 WBC (Bld) 9.3 % Normal 1.7-12.0 [facility] Comment on above: Performed By: #### C BC ####[facility] [address] [place] [address]Mawmpd Xiom[place] NEUT # 3.8 103/ul Normal 1.4-6.5 [facility] Comment on above: Performed By: #### C BC ####[facility] [address] [place], [place] [address]Gerken Xiom[place] Neutrophils/100 WBC (Bld) 54.6 % Normal 43.0-75.0 [facility] Comment on above: Performed By: #### C BC ####[facility] [address] [place], [place] [address]Gerken Xiom[place] Platelet mean volume (Bld) [Entitic vol] 11.0 fL Normal 9.5-13.5 [facility] Comment on above: Performed By: #### C BC ####[facility] [address] [place] [address]Josef Solano PLT 211 103/ul Normal 150-450 [facility] Comment on above: Performed By: #### C BC ####[facility] [address] [place] [address]Josef Solano RBC 4.30 106/ul Normal 4.20-5.40 [facility] Comment on above: Performed By: #### C BC ####[facility] [address] [place] [address]Josef Solano WBC 7.0 103/ul Normal 4.0-11.0 [facility] Comment on above: Performed By: #### C BC ####[facility] [address] [place] [address]Josef Solano D-DIMERon 08-22-2020 D-DIMER 0.25 mg/L FEU Normal 0.19-0.50 [facility] Comment on above: Performed By: #### D DIM #### [facility] [address] [place] [phone] Josef Solano D-DIMER COMMENTS SEE BELOW Normal [facility] Comment on above: Result Comment: Incr [...] Performed By: #### D DIM #### [facility] [address] [place] [id number] Josef Solano PROF 14(COMP METB)on 021 Albumin [Mass/Vol] 3.8 g/dL Normal 3.5-5.0 [facility] Comment on above: Performed By: #### B FACILITIES ENGINEER, CMP #### [facility] [address] [place] [id number] Josef Xiomara Albumin/Globulin [Mass ratio] 1.2 {ratio} Normal [facility] Comment on above: Performed By: #### B FACILITIES ENGINEER, CMP #### [facility] [address] [place] [address] Josef Xiomara ALP [Catalytic activity/Vol] 81 U/L Normal 38-126 [facility] Comment on above: Performed By: #### B FACILITIES ENGINEER, CMP #### [facility] [address] [place] [address] Josef Xiomara ALT [Catalytic activity/Vol] 22 U/L Normal 9-52 [facility] Comment on above: Performed By: #### B FACILITIES ENGINEER, CMP #### [facility] [address] [place] [address] Josef Xiomara Anion gap [Moles/Vol] 11.9 mmol/L Normal [facility] Comment on above: Performed By: #### B FACILITIES ENGINEER, CMP #### [facility] [address] [place] [address] Josef Xiomara AST [Catalytic activity/Vol] 18 U/L Normal 14-36 [facility] Comment on above: Performed By: #### B FACILITIES ENGINEER, CMP #### [facility] [address] [place] [address] Josef Xiomara Bilirubin [Mass/Vol] 0.4 mg/dL Normal 0.2-1.3 [facility] Comment on above: Performed By: #### B FACILITIES ENGINEER, CMP #### [facility] [address] [place] [address] Josef Xiomara Calcium [Mass/Vol] 8.7 mg/dL Normal 8.4-10.2 [facility] Comment on above: Performed By: #### B FACILITIES ENGINEER, CMP #### [facility] [address] [place], [place] [address] Josef Xiomara Chloride [Moles/Vol] 104 mmol/L Normal 98-107 [facility] Comment on above: Performed By: #### B FACILITIES ENGINEER, CMP #### [facility] [address] [place] [address] Josef Xiomara CO2 [Moles/Vol] 29.1 mmol/L Normal 22.0-30.[address] [facility] Comment on above: Performed By: #### B FACILITIES ENGINEER, CMP #### [facility] [address] [place] [address] Josef Xiomara Creatinine [Mass/Vol] 0.59 mg/dL Normal 0.52-1.04 [facility] Comment on above: Performed By: #### B FACILITIES ENGINEER, CMP #### [facility] [address] [place] [address] Josef Xiomara EGFR-AF CITIZEN OF THE [place] >60 Normal >=[address] [facility] Comment on above: Performed By: #### B FACILITIES ENGINEER, CMP #### [facility] [address] [place] [address] Josef Xiomara EGFR-NON AF CITIZEN OF THE [place] >60 Normal >=60 [facility] Comment on above: Performed By: #### B FACILITIES ENGINEER, CMP #### [facility] [address] [place] [address] Josef Xiomara Globulin (S) [Mass/Vol] 3.3 g/dL Normal [facility] Comment on above: Performed By: #### B FACILITIES ENGINEER, CMP #### [facility] [address] [place] [address] Josef Xiomara Glucose [Mass/Vol] 72 mg/dL Critically low 74-106 Th [facility] Comment on above: Performed By: #### B FACILITIES ENGINEER, CMP #### [facility] [address] [place] [address] Josef Xiomara Potassium [Moles/Vol] 4.0 mmol/L Normal 3.4-5.0 [facility] Comment on above: Performed By: #### B FACILITIES ENGINEER, CMP #### [facility] [address] [place] [address] Josef Xiomara Protein [Mass/Vol] 7.1 g/dL Normal 6.1-8.2 [facility] Comment on above: Performed By: #### B FACILITIES ENGINEER, CMP #### [facility] [address] [place] [address] Josef Xiomara Sodium [Moles/Vol] 141 mmol/L Normal 137-145 [facility] Comment on above: Performed By: #### B FACILITIES ENGINEER, CMP #### [facility] [address] [place], [place] [address] Josefbrandt Ibarraen Urea nitrogen [Mass/Vol] 20.0 mg/dL Critically high 7.0-17.0 [facility] Comment on above: Performed By: #### B FACILITIES ENGINEER, CMP #### [facility] [address] [place] [address] Josef Xiomara Urea nitrogen/Creatinine [Mass ratio] 33.9 mg/mg Normal [facility] Comment on above: Performed By: #### B FACILITIES ENGINEER, CMP #### [facility] [address] [place] [address] Josefbrandt Ibarraen CREATININEon 07-25-2020 Creatinine [Mass/Vol] 0.63 mg/dL Normal 0.52-1.04 [facility] Comment on above: Performed By: #### C ZEYAD #### [facility] [address] [place] [address] Josef Xiomara EGFR-AF CITIZEN [place] >60 Normal >=60 [facility] Comment on above: Performed By: #### C ZEYAD #### [facility] [address] [place] [address] Josef Xiomara EGFR-NON AF CITIZEN OF [place] >60 Normal >=60 [facility] Comment on above: Performed By: #### C ZEYAD #### [facility] [address] [place], [place] [id number] Josef Xiomaar CT PELVIS W CONon 07-25-2020 CT PELVIS [...] by: ALLEY ALLEN Date: 2020-07-25 14:11 Normal [facility] Vital Signs Date Time Vital Sign Value Performing Clinician Facility 12-27-2023 12:51-0500 Body height 157.5 cm [employer] Phone: [facility] [employer] 12-27-2023 12:51-0500 Body mass index (BMI) [Ratio] 27.62 kg/m2 [employer] Phone: [facility] [employer] 12-27-2023 12:51-0500 Body weight 68.49 kg [employer] Phone: [facility] [employer] 12-27-2023 12:51-0500 Diastolic blood pressure 74 mm[Hg] [employer] Phone: [facility] [employer] 12-27-2023 12:51-0500 Heart rate 83 /min [employer] Phone: [facility] [employer] 12-27-2023 12:51-0500 Respiratory rate 12 /min [employer] Phone: [facility] [employer] 12-27-2023 12:51-0500 SaO2% (BldA) [Mass fraction] 96 % [employer] Phone: [facility] [employer] 12-27-2023 12:51-0500 Systolic blood pressure 118 mm[Hg] [employer] Phone: [facility] [employer] 12-06-2023 10:57-0400 Body height 152.4 cm [employer] Phone: [facility] [employer] 12-06-2023 10:57-0400 Body mass index (BMI) [Ratio] 29.88 kg/m2 [employer] Phone: [facility] 12-06-2023 10:57-0400 Body weight 69.4 kg Jatin Hayden DO Work Phone: [facility] 12-06-2023 10:57-0400 Diastolic blood pressure 68 mm[Hg] Jatin Hayden DO Work Phone: [facility] 12-06-2023 10:57-0400 Systolic blood pressure 122 mm[Hg] Jatin Hayden DO Work Phone: [facility] 11-16-2023 15:08-0400 Blood Pressure Location Hayes NILL [facility] 11-16-2023 15:08-0400 Diastolic blood pressure 76 mm[Hg] Hayes NILL [facility] 11-16-2023 15:08-0400 Heart rate 70 /min Hayes NILL [facility] 11-16-2023 15:08-0400 Respiratory rate 16 /min Hayes NILL [facility] 11-16-2023 15:08-0400 Systolic blood pressure 136 mm[Hg] Hayes NILL [facility] Encounters Encounter Date Encounter Type Care Provider Facility Start: 03-22-2024 ambulatory Josseline Benitez lity:Roman [facility]gan Start: 03-16-2024 ambulatory Satinder Gamino Facility:[facility] Start: 02-18-2024 ambulatory Josseline Diggs Facilit y:Roman morgan Start: 12-27-2023 End: 12-27-2023 Bamboo flowsheet Jatin Hayden DO Work Phone: [facility] Start: 12-27-2023 End: 12-27-2023 Bamboo flowsheet Jatin Hayden DO Work Phone: [facility] Start: 12-27-2023 End: 12-27-2023 Postop follow up visit related to original px Jatin Hayden DO Work Phone: [facility] Comment on above: Status post cholecys tectomy (Primary Dx) Start: 12-27-2023 End: 12-27-2023 ambulatory JATIN HAYDEN Not Available Start: 12-14-2023 End: 12-14-2023 ambulatory Jatin Hayden [facility] [place] [facility] Work Phone: Start: 12-14-2023 End: 12-14-2023 Departed Referred DO Jatin Hayden Work Phone: [facility] [place] [facility]-LAB [facility] Start: 12-06-2023 End: 12-06-2023 Bamboo flowsheet [...] Start: 11-24-2023 End: 11-24-2023 ambulatory Hayes PEÑA Facility:CD:[id number] Start: 11-16-2023 End: 11-16-2023 ambulatory Katelyn Kaufman Facility:[facility] Start: 11-16-2023 End: 11-16-2023 Patient encounter procedure Hayes PEÑA [facility] Start: 09-14-2023 End: 09-14-2023 ambulatory MD Katelyn Kaufman Work Phone: [facility] [place] [facility] Work Phone: Start: 09-14-2023 End: 09-14-2023 Discharged Recurring MD Katelyn Kaufman Work Phone: [facility] [place] [facility]-Physical Therapy [facility] Start: 07-04-2021 End: 07-05-[address] KATELYN KAUFMAN Facility:[facility] Start: 03-10-2021 End: 03-11-[address] KATELYN KAUFMAN Facility:[facility] Start: 09-09-2020 Encounter for prepro cedural laboratory examination DR HAYES PEÑA [facility] Start: 09-04-2020 End: 09-04-[address] HAYES PEÑA Facility:[facility] Start: 08-31-2020 End: 09-01-[address] HAYES PEÑA Facility:[facility] Start: 08-31-2020 End: 09-01-2020 Encounter for preprocedural laboratory examination DR HAYES PEÑA Facility:[facility] Start: 08-30-2020 Encounter for prepro cedural cardiovascular examination DR HAYES PEÑA [facility] Start: 08-22-2020 End: 08-23-[address] [...] procedure 12/27/2023 1:00 PM EST Office Visit [facility] [address] [facility] [address] [place] [address] Jatin Hayden DO [address] [place] [address] Arrived [facility] ALEXANDRO Comment on above: Arrived Start: 12-06-2023 End: 12-06-2023 Patient encounter procedure 12/06/2023 11:00 AM EDT Office Visit [facility] [address] [facility] [address] [place] [address] Jatin Hayden DO [address] [place] [address] Arrived [facility] ALEXANDRO Comment on above: Arrived Start: 10-24-2023 Influenza vaccination Influenza Vacc ine (#1) [facility] Start: 2018 Pneumococcal Vaccine : 65+ Years (1 of 1 - PCV) Pneumococcal Vaccine: 65+ Years (1 of 1 - PCV) [facility] Start: 09-23-2017 Screening for malign ant neoplasm of breast Mammogram [facility] Start: 1955 Screening for malign ant neoplasm of colon [facility] Immunizations Immunization Date Immunization Notes Care Provider Fa cility 01-07-2018 influenza virus vaccine, unspecified formulation Jatin Hayden DO Work Phone: [facility] NEGATED: Highlighted row has not occurred!04-12-2019 influenza virus vaccine, live, attenuated, for intranasal use Hayes PEÑA [facility] Payers Date Payer Category Payer Self-pay [id number] 2023 Medicare (Managed Care) [facility] MEDIC[facility] [id number] 2023 Private Health Insurance [id number] 1961 Medicare [id number] 1961 Medicare [id number] 1955 Unknown [id number] 2.16.840.1.477386.3.579.2. 593 1955 Unknown [id number] 2.16.840.1.879466.3.579.2. 593 1955 Unknown [id number] 2.16.840.1.330632.3.579.2. 593 1955 Unknown [id number] 2.16.840.1.240921.3.579.2. 593 1955 Unknown [id number] 2.16.840.1.242288.3.579.2. 593 1955 Unknown [id number] 2.16.840.1.389967.3.579.2. 593 1955 Unknown [id number] 2.16.840.1.810040.3.579.2. 593 1955 Unknown [id number] 2.16.840.1.513629.3.579.2. 1259 1955 Unknown [id number] 2.16.840.1.120305.3.579.2. 1259 1955 Unknown [id number] 2.16.840.1.469134.3.579.2. 727 1955 Unknown [id number] 2.16.840.1.494956.3.579.2. 727 1955 Unknown [id number] 2.16.840.1.211971.3.579.2. 727 1955 Unknown [id number] 2.16.840.1.555368.3.579.2. 727 Medicare Medicare [id number] Unknown [id number] 2.16.840.1.569773.3.579.2. 531 Unknown [id number] 2.16.840.1.770646.3.579.2. 531 Social History Date Type Detail Facility Tobacco smoking status NHIS Unknown if ever smoked [facility] Work Phone: Start: 1955 Sex Assigned At Female F [facility] Start: 11-16-2023 Tobacco smoking status Never smoked tobacco (finding) [facility] Tobacco smoking status Never [facility] Sex Assigned At Female [facility] Tobacco smoking status GAIS Tobacco smoking consumption unknown [facility] Start: 1955 Sex assigned at Not on file N [facility] Healthcare Functional Status Date Assessment Result Facility 11-16-2023 Functional Status N/A [facility] Clinical Notes 07-12-2020 to 12-27-2023 Jatin Hayden [...] Reese Hayden DO documented in this encounter [facility] 12-06-2023 History of Present illness Narrative [...] Reese Hayden DO documented in this encounter [facility] 11-16-2023 Note General Surgery Offi ce/Clinic [...] Dis Tab, 4 (more content not included)... [facility] Comment on above: Result Comment: Elec tronically Signed By: CASEY DA SILVA, Hayes Aleman.celeste\Date and Time Signed: 11/16/23 15:49 EDT 03-10-2021 Note PROCEDURE: XR HAND R T MIN 3V COMPARISON: 07/12/2020 hand HISTORY: Pain in right thumb FINDINGS: BONES:No acute fracture or dislocation. 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 No visible soft tissue swelling. EFFUSION:None visible. OTHER: Negative. IMPRESSION: Degenerative changes, no acute abnormality Electronically authenticated by: EDMOND CAAL Date: 2021-03-10 13:48 [facility] 09-04-2020 Note OPERATIVE NOTE OPERATION DATE: [...] Recovery Room in good condition. cc:Dr. Kaufman. [facility] Signed and Approved by: DR HAYES PEÑA . 09/06/2020 08:06:00 [facility] 07-12-2020 Note PROCEDURE: XR HAND B [...] authenticated by: ALLEY ALLEN Date: 2020-07-12 13:58 [facility] Evaluation + Plan note No data available for this section [facility] Evaluation note No assessment inform ation available [facility] Work Phone: Evaluation note Diagnosis Biliary dyskinesia- Primary Other specified disorder of gallbladder documented in this encounter [facility] Diagnosis Status post cholecystectomy- Primary Other acquired absence of organ documented in this encounter [facility] Discharge instructions No data available for this section [facility] Progress note No data available for this section [facility] Summary Purpose Family History No Family [...] and content) DATE CREATED AUTHOR [facility]12[facility]2021 [facility] DATE CREATED AUTHOR AUTHOR'S ORGANIZ ATION 12/22/2023 [facility] DATE CREATED AUTHOR AUTHOR'S ORGANIZ ATION 12/28/2023 [facility] EPIC DATE CREATED AUTHOR AUTHOR'S ORGANIZ ATION 02/19/2024 Sukh Figeuroa [facility] Care Teams (unrecognized sec tion and content) Team Status: Active Member Role Status Dates Katelyn Kaufman MD Primary Care Provider Active Team Status: Inactive Member Role Status Dates Katelyn Kaufman MD Primary Care Provider Active Start: September 14, 2023 End: September 14, 2023 Jas Kelly DO Attending Provider Active S tart: September 14, 2023 End: September 14, 2023 Duck Farmer Relationship Specialty Start Date End Date Katelyn Kaufman MD [address] [facility] [place] [address] PCP - General Family Medicine 12/06/23 Duck Farmer Relationship Specialty Start Date End Date Katelyn Kaufman MD [address] [place] [address] PCP - General Family Medicine 12/06/23 Team Status: Inactive Member Role Status Dates Jatin Hayden DO Attending Provider Active Star t: December 14, 2023 End: December 14, 2023 Duck Farmer Relationship Specialty Start Date End Date Katelyn Kaufman MD [address] [place] [address] PCP - General Family Medicine 12/06/23 Goals [...] BE BASED ON THE PRIMARY CLINICAL RECORDS. [employer] [facility]. provides no warranty or guarantee of the accuracy or completeness of information in this document.
[2024-03-06 12:31] LABS: Basophils Percent Auto 0.5 % (0.2-2.0); Eosinophils Absolute Auto 0.1 10^3/uL (0.0-0.7); Eosinophils Percent Auto 0.9 % (0.9-7.0); Hematocrit 42.5 % (36.0-48.0); Hemoglobin 13.7 g/dL (12.0-16.0); Immature Granulocytes Abs Auto 0.02 10^3/uL (0.00-0.03); Immature Granulocytes Pct Auto 0.2 % (0.0-0.5); Lymphocytes Absolute Auto 2.3 10^3/uL (1.2-3.8); Lymphocytes Percent Auto 27.6 % (20.5-60.0); Mean Corpuscular HGB Conc 32.2 g/dL (29.9-35.2); Mean Corpuscular Hemoglobin 30.1 pg (26.7-34.0); Mean Corpuscular Volume 93.4 fL (81.0-99.0); Mean Platelet Volume 10.7 fL (9.5-13.5); Monocytes Absolute Auto 0.8 10^3/uL (0.3-0.8); Monocytes Percent Auto 9.1 % (1.7-12.0); Neutrophils Absolute Auto 5.2 10^3/uL (1.4-6.5); Neutrophils Percent Auto 61.7 % (43.0-75.0); Platelet Count 260 10^3/uL (150-450); Red Blood Count 4.55 10^6/uL (4.20-5.40); Red Cell Distribution Width 12.3 % (11.0-15.0); White Blood Count 8.5 10^3/uL (4.0-11.0)
[2024-03-06 12:59] LABS: Alanine Aminotransferase 23 U/L (14-59); Albumin Globulin Ratio 1.1; Albumin Level 3.7 g/dL (3.4-5.0); Alkaline Phosphatase 80 U/L (46-116); Amylase 46 U/L (25-115); Anion Gap 9.9; Aspartate Amino Transferase 17 U/L (15-37); BUN Creatinine Ratio 22.1; Bilirubin Total 0.2 mg/dL (0.2-1.0); Calcium 9.3 mg/dL (8.5-10.1); Carbon Dioxide 29.3 mmol/L (21.0-32.0); Chloride 105 mmol/L (98-107); Estimated GFR (African America >60 (>=60 mL/min/1.73m^2); Estimated GFR (Non-African Ame >60 (>=60 mL/min/1.73m^2); Globulin 3.3 g/dL; Glucose 70 mg/dL (74-106); Potassium 4.2 mmol/L (3.5-5.1); Sodium 140 mmol/L (136-145)
== END 2024-03-06 11:58 | disposition home or self-care (01) ==
LOC: LAB 11:59
PROVIDERS: PCP Family Medicine; Visit Provider Family Medicine
DX: R10.13 Epigastric pain (principal)
CPT/HCPCS: 36415; 80053; 82150; 83690; 85025

== ENCOUNTER 2024-04-26 08:23 | Outpatient (OUT) | payer MEDICARE, SELFPAY ==
--- NOTE | 2024-04-26 08:29 | MR_ITS ---
The [address] [address] Patient Name: MARY JO ROBLES MRN: [id number] date: 1955 Sex: F Assigned Patient Location: MRI Current Patient Location: MRI Accession/Order Number: [id number] Exam Date: 04/26/2024 15:43 Report Date: 04/26/2024 15:50 At the request of: KATELYN YOON MD Procedure: MR angio abdomen wo con MRA of the abdomen without IV contrast. Reason for exam: Chronic abdominal pain COMPARISON: CT abdomen and pelvis 01/07/2024. TECHNIQUE: Multisequence, multiplanar imaging of the abdomen was obtained. Additional [id number] imaging of the aorta and its major branches were also obtained. FINDINGS: Limited study. The abdominal aorta appears normal in caliber without aneurysm. Single renal arteries are identified without definitive critical stenosis or occlusion. The celiac artery as well as the SMA origins appear grossly patent. Visualized organs demonstrate no gross acute abnormality. MR/MR angio abdomen wo con Impression: Limited study. Abdominal aorta appears normal in caliber without aneurysm. No definitive critical stenosis or occlusion is seen involving the origin of the celiac artery or SMA. No critical stenosis or occlusion is seen involving the origins of the renal arteries. If further evaluation is needed, CTA of the abdomen and pelvis is recommended. Impression dictated by: Yordy Glasgow Jr., D.O.04/26/2024 3:50 PM Dictation Location: [place] [address] Electronically authenticated by: [id number] Y Date: 04/26/2024 15:50
== END 2024-04-26 08:24 | disposition home or self-care (01) ==
LOC: MRI 08:23
PROVIDERS: PCP Family Medicine; Visit Provider Family Medicine
DX: K21.9 Gastro-esophageal reflux disease without esophagitis (principal); K55.1 Chronic vascular disorders of intestine
CPT/HCPCS: C8901

== ENCOUNTER 2024-07-25 16:33 | Outpatient (OUT) | payer MEDICARE, SELFPAY ==
--- OUTSIDE RECORDS SUMMARY | 2021-06-18 09:20 | XMS_ITS | Continuity of Care Document ---
Author Organization [facility] o Address [address] [place] [address] Phone Care Team Providers Care Learning Solutions Specialist Name Role Phone Angel Ulrich MD, Doroteo Unavailable Unavailab le Allergies, Adverse Reactions, Alerts Substance Reaction Status Criticality No Known Allergies Active No Inform ation Medications Medication Instructions Dosage Effective Dates (start - stop) Status Comments No Drug Therapy Prescribed Procedures Procedure Date Office/outpatient visit,[facility] 2021 X-ray exam of knee, 3 views Advance Directives Directive Yes / No Effective Date File Name No Information Encounters Encounter Description Practice Location Reason(s) For Visit Diagnoses Date Provider Providers Copied on Encounter Office/outpat ient visit,[facility] [place], [address] [place], [address], [place] tel:[phone] JIS Atkins Primary osteoarthritis of right kneePrimary osteoarthritis of left kneeHistory of arthroplasty of left kneeHistory of arthroplasty of right kneeHistory of arthroplasty of left kneeHistory of arthroplasty of right kneePrimary osteoarthritis of left kneePrimary osteoarthritis of right kneeBilateral primary osteoarthritis of kneePresence of artificial knee joint, bilateral May- 2 Angel Sadler. [address], [address], [place], [place], [id number] , [place]. tel:[phone] Referring Provider: Doroteo Ulrich V, [address], [place], [address] . tel:[phone] Family History Family Member Type Diagnosis Age At Onset No Information Payers Payer name Insurance type Covered democrat ID Kenyon kelly(jean claude Redman Medicare - [id number] Social History Type Description Quantity Date Captured Comments Alcohol Use Details Unknown Caffeine Use Details Unknown Tobacco Use Status No Information Smoking Status Never smoker Non-Smoking Tobacco Use Details : No Details Available : No Details Available : No Details Available : No Details Available Sex Female Vital Signs Date / Time: Height Weight BMI Pulse Rate Blood Pressure Temperature Respiratory Rate Body Surface Area Head Circumference Head Circ. Percentile Wt./[place]. Percentile BMI percentile Pulse Ox Inhaled Ox 2:11 PM 64.00 in 70.307 kg (155.00 lbs) 26.6 1 kg/m eter (2) Chief Complaint And Reason For Visit No Information Reason For Referral Reason For Referral No Information History Of Present Illness Encounter Date Complaint History Of Prese nt Illness No Information Functional Status Date Functional Assessmen t No Information Medications Administered Medication Instructions Dosage Effective Dates (start - stop) Status Comments No Drug Therapy Prescribed Instructions Date Instruction Additional Infor mation No Information Assessments Type Assessment Date assessment Primary osteoarthritis of right knee assessment Primary osteoarthritis of left k nee assessment History of arthroplasty of left knee assessment History of arthroplasty of right knee Patient Care Teams Name Effective Dates (start - stop) Status Members No Information
--- OUTSIDE RECORDS SUMMARY | 2023-08-16 09:00 | XMS_ITS ---
Author Organization [facility] Address [address] [place] [address] Care Team Providers Care [facility] Worker Name Role Phone Shae Merrill Primary Care Provider Jas Correa Unavailable [phone] REASON FOR VISIT LEFT KNEE PAIN, Left knee pain Encounters Encounter Location Date Provider Diagnosis [facility] Office [address] [place] [address] [place] [address] 08/16/2023 Jas Kelly History of left knee replacement Z96.652 Assessments Encounter Date Diagnosis (ICD Code) Assessment Notes Treatment Notes Treatment Clinical Notes Section Notes 08/16/2023 History of left knee replacement (ICD-10 - Z96.652) Left painful unicompartmental total knee arthroplasty 08/16/2023 Other Assessment reviewed with Shanique regarding her left total knee arthroplasty. Does not appear to have any infection. Will start her in some physical therapy to see if she improves with this. If not we will have her go back to [place] for consultation. Follow-up in 2 months Left painful unicompartmental total knee arthroplasty Plan Of Treatment Treatment Notes Assessment Notes Other Assessment reviewed with Shanique regarding her left total knee arthroplasty. Does not appear to have any infection. Will start her in some physical therapy to see if she improves with this. If not we will have her go back to [place] for consultation. Follow-up in 2 months Pending Test Test Name Order Date PT/OT - Eval and Treat 08/16/2023 Next Appt Details Follow Up: 2 Months, Reason: Progress Notes * SHANIQUE ROBLES LDOB:[birth year] (67 yo F)Acc No.[id number]:08/16/2023 Patient: Rose HU SHANIQUE Miller Provider: Jacey Kelly DO :1955 A ge:67 Y S ex:Female Date:08/16/2023 Address:[place] , [id number] Pcp:Merrill Kaufman Subjective: * Chief Complaints: * L EFT KNEE PAINLeft knee pain * HPI: G eneral Follow Up Information: Shanique is a 67-year-old female presenting today for left knee pain. Pain has been ongoing for a few months now. Has a history of left unicompartmental total knee arthroplasty performed by Angel in 2016. Pain of her knee is throbbing and aching in nature. Denies any specific injury. Denies any numbness or tingling. Denies any fevers or chills. * ROS: C onstitutional: Denies C hills. D enies numbness tingling. * Medical History: * Surgical History: * Medications: N one Objective: * Vitals: * Examination: G eneral examination: L eft lower extremity:Skin is intact. Surgical incision well-healed. There is slight gapping with valgus stress of the knee. There is no effusion. No crepitance felt. Motor and sensory exam intact without deficits. X-ray imaging studies Reviewed plain film x-rays the left knee in the office today demonstrates a unicompartmental knee arthroplasty in place on evidence of acute periprosthetic fracture. Assessment: * Assessment: 1. H istory of left knee replacement - Z96.652 (Primary) Left painful unicompartmenta l total knee arthroplasty. Plan: * Treatment: 2. O thers Notes: Assessment reviewed with Shanique regarding her left total knee arthroplasty. Does not appear to have any infection. Will start her in some physical therapy to see if she improves with this. If not we will have her go back to [place] for consultation. Follow-up in 2 months * Procedure Codes: * Follow Up: 2 Months Forms: * Images: * Sign off status: Completed true * Provider: Jacey Kelly DO Date: 0 08/16/2023 Generated for Jason lehman/Brittany/eTransmitting on: 0 07/25/2024 04:39 PM EDT History and Physical Notes * HPI (History of Present Illness) Category Sub-Category Detail Notes Category Not es General Follow Up Information Shanique is a 67-year- old female presenting today for left knee pain. Pain has been ongoing for a few months now. Has a history of left unicompartmental total knee arthroplasty performed by Angel in 2016. Pain of her knee is throbbing and aching in nature. Denies any specific injury. Denies any numbness or tingling. Denies any fevers or chills Examination Category Sub-Category Detail Notes Category Not es General examination Left lower extremity:Skin is intact. Surgical incision well-healed. There is slight gapping with valgus stress of the knee. There is no effusion. No crepitance felt. Motor and sensory exam intact without deficits. X-ray imaging studies Reviewed plain film x-rays the left knee in the office today demonstrates a unicompartmental knee arthroplasty in place on evidence of acute periprosthetic fracture
--- OUTSIDE RECORDS SUMMARY | 2024-06-14 07:30 | XMS_ITS ---
Author Organization [facility] [place] Address [address] [place] [address] Care Team Providers Care Supervisor [employer] Name Role Phone Shae Stanton Primary Care Provider Results Component Value Reference Range Notes UA (Urinalysis, Dipstix only - w/o micro) Reviewed date:06/14/2024 11:40:26 AM Interpretation: Performing Lab: Notes/Report: COLOR yellow Yellow - Ellie - CLARITY clear Clear - Clear GLUCOSE - 0 - 133 MG/DL ALBUMIN - NEG - NEG MG/DL BILIRUBIN - NEG - NEG MG/DL SPECIFIC GRAVITY 1.020 1.001 - 1.035 KETONES - NEG - NEG MG/DL BLOOD, UR - PH, UR 5 5 - 9 UROBILNOGEN - 0.2 - 1 MG/DL NITRITE - NEG - NEG ESTERASE (FERNANDA) - NEG - NEG MG/DL REASON FOR VISIT urine sample Encounters Encounter Location Date Provider Diagnosis [facility] [address] [place] [address] 06/14/2024 Stanton Kaufman UTI (urinary tract infection) N39.0 Assessments Encounter Date Diagnosis (ICD Code) Assessment Notes Treatment Notes Treatment Clinical Notes Section Notes 06/14/2024 UTI (urinary tract infection) (ICD-10 - N39.0) Plan Of Treatment No Information Progress Notes * Shanique CAMARGO LDOB:[birth year] (68 yo F)Acc No.[id number]:06/14/2024 Nurse Visit Patient: Rose HUShanique Paul Provider: Jacey Kaufman ([facility])MD :1955 A ge:68 Y S ex:Female Date:06/14/2024 Address:[place] , [id number] Check In:11:28 AM ESTCheck O ut:11:43 AM EST Subjective: * Chief Complaints: * U rine sample * HPI: G eneral: patient presents to office for a urine recheck. * Active Problem List J20.9 Acute bronchitis Modified On:01/28/2023U Status:confirmed J01.90 Acute sinusitis Modified On:01/06/2023 Status:confirmed M81.0 Age-related osteopor osis without current pathological fracture Modified On:06/02/2023 Status:confirmed M54.30 Sciatic leg pain Modified On:07/08/2023U Status:confirmed M17.9 Knee osteoarthritis Modified On:08/02/2023U Status:confirmed R10.13 Epigastric abdominal pain Modified On:09/09/2023U Status:confirmed K57.90 Diverticulosis Modified On:09/28/2023U Status:confirmed K21.9 GERD (gastroesophage al reflux disease) Modified On:10/29/2023 Status:confirmed R10.9 Abdominal pain Modified On:11/26/2023U Status:confirmed R10.10 Upper abdominal pain Modified On:01/10/2024U Status:confirmed M17.10 Knee osteoarthritis Modified On:01/19/2024U Status:confirmed D36.9 Tubular adenoma Modified On:04/04/2024U Status:confirmed K55.1 Intestinal angina Modified On:04/20/2024U Status:confirmed K83.8 Bile duct leak Modified On:04/21/2024 Status:confirmed * Medical History: * Surgical History: * Hospitalization/Major Diagno stic Procedure: * Medications: Objective: * Vitals: Assessment: * Assessment: 1. U TI (urinary tract infection) - N39.0 (Primary) Plan: * Treatment: * Labs: * L ab: UA (Urinalysis, Dipstix only - w/o micro) (Collection Date & Time - 06/14/2024) Value Reference Range C OLOR yellow Yellow - Ellie - * C LARITY clear Clear - Clear * G LUCOSE - 0 - 133 MG/DL * A LBUMIN - NEG - NEG MG/DL * B ILIRUBIN - NEG - NEG MG/DL * S PECIFIC GRAVITY 1.020 1.001 - 1.035 * K ETONES - NEG - NEG MG/DL * B LOOD, UR - * P H, UR 5 5 - 9 * U ROBILNOGEN - 0.2 - 1 MG/DL * N ITRITE - NEG - NEG * E STERASE (FERNANDA) - NEG - NEG MG/DL * Procedure Codes: 8 1002 URINALYSIS WO MICRO * * Sign off status: Completed Visit Status: C HK (Check Out) true * Provider: Jacey Kaufman ([facility])MD Date: 0 06/14/2024 Generated for Printi ng/Faxing/eTransmitting on: 0 07/25/2024 04:38 PM EDT History and Physical Notes * HPI (History of Present Illness) Category Sub-Category Detail Notes Category Not es General patient present s to office for a urine recheck
--- OUTSIDE RECORDS SUMMARY | 2024-06-14 07:40 | XMS_ITS ---
Author Organization [facility] in [place] Address [address] [place] [address] Care Team Providers Care Cold Roll Inspector Name Role Phone Stanton Kaufman Primary Care Provider REASON FOR VISIT ua recheck Encounters Encounter Location Date Provider Diagnosis [facility] [address] [facility] [place] [address] 06/14/2024 Stanton Kaufman Plan Of Treatment No Information Progress Notes * Shanique CAMARGO LDOB:[birth year] (68 yo F)Acc No.[id number]:06/14/2024 Patient: Shanique DOLAN :1955 A ge:68 Y S ex:Female Address:[address] [place], [address] Subjective: * Chief Complaints: * U a recheck * Medical History: * Surgical History: * Hospitalization/Major Diagno stic Procedure: * Medications: Objective: * Vitals: * P ast Orders: L ab:UA (Urinalysis, Dipstix only - w/o micro) (Order Date - 06/14/2024) (Collection Date & Time - 06/14/2024) Value Reference Range COLOR yellow Yellow - Ellie - CLARITY [...] ESTERASE (FERNANDA) - NEG - NEG MG/DL * Physical Examination: Assessment: Plan: * Treatment: * Procedure Codes: * true * Date: Generated for Jason lehman/Brittany/Casa on: 0 07/25/2024 04:38 PM EDT
--- OUTSIDE RECORDS SUMMARY | 2024-07-24 13:00 | XMS_ITS ---
Author Organization [facility] in [place] Address [address] [place] [address] Care Team Providers Care Clothespin Machine Operator Name Role Phone Stanton Kaufman Primary Care Provider [phone] Allergies Allergen (clinical drug ingredient) Drug/Non Drug Allergy documented on EMR Reaction Allergy Type Onset Date Status Levaquin severe muscle aches Drug Allergy Active Non-steroidal anti-inflammatory agent (FN) NSAIDs GI INTOLERANCE Drug Allergy Active sucralfate Sucralfate GI intolerance Drug Allergy Active REASON FOR VISIT shoulder pain, right shoulder, left knee pain, started on and off last month Medications Medication SIG (Take, Route, Frequency, Duration) Notes Start Date End Date Status Ondansetron 4 MG 1 tablet on the tong ue and allow to dissolve Orally Once a day PRN 04/20/2024 Active Pyridium 200 MG 1 tablet after meals Orally Three times a day for 2 days 06/02/2024 Not-Taking predniSONE 20 MG 3 tablets Orally Onc e a day for 5 days 07/24/2024 Active RABEprazole Sodium 20 MG 1 tablet after a meal Orally Once a day for 30 days 04/20/2024 Active Social History Tobacco Use: Social History Observation Description Date Details (start date - stop date) Never Smoker NA - NA Tobacco Use/Smoking Question Answer Notes Patient is a nonsmoker Vital Signs Weight 154.2 lbs 07/24/2024 Height 61 in 07/24/2024 Blood pressure systolic 118 mm Hg 07/25/19 25 Blood pressure diastolic 80 mm Hg 025 BMI 29.13 kg/m2 07/24/2024 Encounters Encounter Location Date Provider Diagnosis [facility] [address] [facility] [place] [address] 07/24/2024 Stanton Kaufman Shoulder impingement M25.819 and Impingement of right shoulder M25.811 Assessments Encounter Date Diagnosis (ICD Code) Assessment Notes Treatment Notes Treatment Clinical Notes Section Notes 07/24/2024 Shoulder impingement (ICD-10 - M25.819) 07/24/2024 Impingement of right shoulder (ICD-10 - M25.811) Plan Of Treatment Medication Medication Name Sig Start Date Stop Date Notes predniSONE 20 MG 3 tablets Orally Onc e a day for 5 days 07/24/2024 RABEprazole Sodium 20 MG 1 tablet after a meal Orally Once a day for 30 days 04/20/2024 Pending Test Test Name Order Date XR SHOULDER RT 2V or > 07/24/2024 Progress Notes * Shanique CAMARGO LDOB:[birth year] (68 yo F)Acc No.[id number]:07/24/2024 UNLOCKED PROGRESS NOTE Progress Note Patient: Shanique DOLAN Provider: Jacey Kaufman ([facility])MD :1955 A ge:68 Y S ex:Female Date:07/24/2024 Address:[facility] [address] [place] , [id number] Check In:04:44 PM ESTCheck O ut:05:57 PM EST Subjective: * Chief Complaints: * 1 . Shoulder pain. 2. Right shoulder. 3. Left knee pain. 4. Started on and off last month. * HPI: G eneral: R shoulder -no injury Left knee some pain -0 had steroid pills that helped. * ROS: E ENT: hearing changes d enies. v isual changes d enies.?non-healing mouth sores d enies. s wollen glands or neck lumps d enies. h oarseness d enies. s ore throat d enies. d ifficulty swallowing d enies. n ose bleeds d enies. n earl congestion d enies. e ar ache d enies. e ar discharge?denies. r inging in ears d enies. l ight sensitivity d enies. e ye pain d enies. b lurring d enies. e ye irritation d enies. d ouble vision d enies.?vision loss d enies. G eneral/Constitutional: Sweats: D enies. F atigue d enies. S leep problems d enies. A norexia d enies. M alaise d enies. W eight loss d enies.?Fatigue or Weakness d enies. F ever or Chills d enies. C ardiovascular: Shortness of Breath w/lying flat d enies. L ightheadedness/dizziness d enies. C hest tightness/ heavy pressure d enies. S welling of legs, ankles, or feet d enies. W aking up with shortness of breath d enies. C hest pain denies. P alpitations d enies. W eight gain d enies. R espiratory: Chronic or frequent cough d enies. C oughing up blood?denies. D ifficulty breathing d enies. P roductive cough d enies. S noring?denies. S hortness of breath that awakens from sleep (PND) d enies. C hest pain d enies. S putum production d enies. W heezing d enies. M usculoskeletal: Joint pain d enies. J oint Fluid d enies. B ack pain d enies. K nee pain d enies. N cristiane pain d enies. J oint Stiffness d enies. M uscle cramps d enies. W eakness of muscles d enies. A rthritis d enies. M uscle aches d enies. P ain in shoulder(s) d enies. S wollen joints d enies. * Medical History: A rthritis, Inguinal hernia, Diverticular disease. * Surgical History: H ysterectomy 1988, Tonsillectomy 1963, Carpal Tunnel 2001, Right Knee Surgery 11/12/15, Left Knee Surgery 01/12/16, Hernia Repair , EGD 11/24/2023, gallbladder removed 12/13/23, Colonoscopy, polyp x3- Dr Diggs 03/2024, EGD 05/10/24. * Hospitalization/Major Diagno stic Procedure: D enharmony Past Hospitalization. * Family History: F ather: , COPD. M other: , COPD, colon cancer, diagnosed with Other malignant neoplasm of unspecified site, Unspecified essential hypertension. B rother(s): alive. S ister(s): alive, COPD. S on(s): alive. D giseleer(s): alive. 3 brother(s) , 4 sister(s) - healthy. 1 son(s) , 2 daughter(s) - healthy. . * Social History: T obacco Use: T obacco Use/Smoking P atient is a n onsmoker * Medications: T aking Ondansetron 4 MG Tablet Disintegrating 1 tablet on the tongue and allow to dissolve Orally Once a day , Notes to Pharmacist: PRN, Taking RABEprazole Sodium 20 MG Tablet Delayed Release 1 tablet after a meal Orally Once a day , Not- Taking/PRN Pyridium(Phenazopyridine HCl) 200 MG Tablet 1 tablet after meals Orally Three times a day , Discontinued Cefdinir 300 MG Capsule 2 capsule Orally once a day , Medication List reviewed and reconciled with the patient * Allergies: L evaquin: severe muscle aches - Side Effects - Criticality High, NSAIDs: GI INTOLERANCE - Allergy - Criticality High, Sucralfate: GI intolerance - Allergy - Criticality High. Objective: * Vitals: W t:154.2lbs, Ht: 61 in, BP:118/80mm Hg, BMI:29.13Index, Ht-cm: 154.94 cm, Wt-k.94 kg. * Examination: P hysical Exam: GENERAL: w ell developed, well nourished, in no acute distress. HEAD: n ormocephalic/atraumatic. EYES: p upils equal, round and reactive to light, conjunctivae and sclerae normal. EARS: n o deformity or lesion of external ear, canals and TM appear normal bilaterally, TM's intact, not inflamed with normal light reflex, hearing grossly normal to conversational speech. NOSE: n o deformity, discharge, inflammation, or lesions.? MOUTH: m ucous membranes moist, normal oropharynx and posterior pharynx without lesions or exudates, tongue normal, dentition normal. NECK: n cristiane supple, no masses or palpable cervical nodes, trachea midline, thyroid without nodules, masses, tenderness, or enlargement. CHEST: n o chest wall deformity, no chest wall tenderness.? LUNGS: n ormal respiratory effort and clear to auscultation, no wheezes, rales, or rhonchi, good air exchange. CARDIO: r egular rate and rhythm, normal S1 and S2, nor murmur, rub, or gallop. PULSES: n ormal capillary refill. ABDOMEN: s oft, non-distended, non-tender, no masses. MUSCULOSKELETAL: n o deformity or scoliosis noted, normal range of motion, joints normal, no erythema, edema, effusion, or ecchymosis. EXTREMITY: n o clubbing, cyanosis, edema, or deformity with normal ROM in both upper and lower bilateral extremities. NEUROLOGIC: g rossly normal. SKIN: n o rashes, ulcerations, or suspicious lesions. LYMPH NODES: n o cervical adenopathy, nodes normal. MENTAL STATUS: a lert and oriented x3, normal mood and affect. Assessment: * Assessment: 1. S houlder impingement - M25.819 (Primary) 2 . I mpingement of right shoulder - M25.811 Plan: * Treatment: * Preventive Medicine: Screenings/Counseling: B [place] ACTION PLAN Above Normal BMI Follow-up D ietary management education, guidance, and counseling F ALL RISK SCREENING Fall Risk Assessment: N o falls in the past year * * Electronic signature of Stanton Kaufman MD, [phone] on 07/25/2024 at 04:38 PM EDT Sign off status: Pending Visit Status: C HK (Check Out) * Provider: Jacey Kaufman ([facility])MD Date: 0 07/24/2024 Generated for Darryli fallon/Britatny/eTransmitting on: 0 07/25/2024 04:38 PM EDT History and Physical Notes * HPI (History of Present Illness) Category Sub-Category Detail Notes Category Not es General R shoulder -no injury Left knee some pain -0 had steroid pills that helped Examination Category Sub-Category Detail Notes Category Not es Physical Exam GENERAL: well developed, well nourished, in no acute distress HEAD: normocephalic/atraum atic EYES: pupils equal, round and reactive to light, conjunctivae and sclerae normal EARS: no deformity or lesi on of external ear, canals and TM appear normal bilaterally, TM's intact, not inflamed with normal light reflex, hearing grossly normal to conversational speech NOSE: no deformity, discha rge, inflammation, or lesions MOUTH: mucous membranes arleen st, normal oropharynx and posterior pharynx without lesions or exudates, tongue normal, dentition normal NECK: neck supple, no mass es or palpable cervical nodes, trachea midline, thyroid without nodules, masses, tenderness, or enlargement CHEST: no chest wall deform ity, no chest wall tenderness LUNGS: normal respiratory e ffort and clear to auscultation, no wheezes, rales, or rhonchi, good air exchange CARDIO: regular rate and rhy thm, normal S1 and S2, nor murmur, rub, or gallop PULSES: normal capillary ref ill ABDOMEN: soft, non-distended, non-tender, no masses RECTAL: MUSCULOSKELETAL: no deformity or scol iosis noted, normal range of motion, joints normal, no erythema, edema, effusion, or ecchymosis EXTREMITY: no clubbing, cyanosi s, edema, or deformity with normal ROM in both upper and lower bilateral extremities NEUROLOGIC: grossly normal SKIN: no rashes, ulceratio ns, or suspicious lesions LYMPH NODES: no cervical adenopat hy, nodes normal MENTAL STATUS: alert and oriented x 3, normal mood and affect
--- OUTSIDE RECORDS SUMMARY | 2024-07-25 16:38 | XMS_ITS | Referral Summary ---
Author Organization [facility] Address [address] [place] [address] Care Team Providers Care Almond Huller Name Role Phone Merrill Kaufman MD Primary Care Provider [phone] Encounters Date Type Department Care Team Description 05/10/2024 Travel 05/10/2024 6:59 AM EDT - 05/10/2024 11:59 PM EDT Hospital Encounter [facility] [address] [place] [phone] Fawad Mcintosh MD Bhatt, Shashi B., MD Housey, Stephanie M., MAGALI Bile leak; RUQ abdominal pain; Intestinal angina Discharge Disposition: Home or Self Care () 05/10/2024 8:10 AM EDT Anesthesia Event [facility] [address] [place] [phone] Christopher Álvarez MD Eisenman-Patel, Taylor, MD 05/01/2024 Travel from Last 3 Months Allergies Active Allergy Reactions Criticality Noted Date Comments Dicyclomine GI intolerance 05/01/2024 STOMACH PAINS Famotidine GI intolerance 05/01/2024 STOMACH PAINS Hyoscyamine GI intolerance 05/01/2024 STOMACH ACHES Levofloxacin Other 12/06/2023 Severe muscle aches Nsaids (Non-Steroidal Anti-Inflammatory Drug) GI intolerance 12/06/2023 Metoclopramide Hcl Other 05/01/2024 INSOMNIA, CHEST DISCOMFORT Sucralfate GI intolerance 12/06/2023 Medications Medication Sig Dispensed Refills Start Date End Date Status hyoscyamine 0.125 mg disintegrating tablet DISSOLVE ON THE TONGUE 1-2 TABLETS BY MOUTH EVERY 4 HOURS NEEDED Active ondansetron ODT (Zofran-ODT) 4 mg disintegrating tablet Take 4 mg by mouth every 8 (eight) hours if needed. Active pantoprazole (ProtoNix) 40 mg EC tablet take 1 tablet by mouth twice daily for 30 days Active RABEprazole (Aciphex) 20 mg EC tablet Take 1 tablet by mouth in the morning. 04/13/2024 Active aspirin 81 mg EC tablet Take 81 mg by mouth in the morning. Active docusate sodium (Colace) 100 mg capsule Take 1 capsule by mouth in the morning. 12/14/2023 Active polyethylene glycol (Glycolax) oral powder Take 17 g by mouth if needed. Active Social History Tobacco Use Types Packs/Day Years Used Date Smoking Tobacco: Never Smokeless Tobacco: Never Tobacco Cessation:Counseling Given: Not Answered Alcohol Use Standard Drinks/Week Comments Never 0 (1 standard drink = 0.6 oz pur e alcohol) Sex and Gender Information Value Date Recorded Sex Assigned at Not on file Gender Identity Not on file Sexual Orientation Not on file Last Filed Vital Signs Vital Sign Reading Time Taken Comments Blood Pressure 110/72 05/10/2024 9:27 AM EDT Pulse 66 05/10/2024 9:27 AM EDT Temperature 36.1 C (97 F) 05/10/2024 9:27 AM EDT Respiratory Rate 18 05/10/2024 9:27 AM EDT Oxygen Saturation 100% 05/10/2024 9:27 AM EDT Inhaled Oxygen Concentration - - Weight 68.6 kg (151 lb 3.8 oz) 05/10/2024 7:21 A M EDT Height 154.9 cm (5' 1 ) 05/10/2024 7:21 AM EDT Body Mass Index 28.58 05/10/2024 7:21 AM EDT Plan of Treatment Not on file Procedures Procedure Name Priority Date/Time Associated Diagnosis Comments EUS (UPPER) W/ EGD Routine 05/10/2024 8: 54 AM EDT Bile leak RUQ abdominal pain Intestinal angina HISTOLOGY - TISSUE EXAM Routine 05/10/2024 8:27 AM EDT Bile leak RUQ abdominal pain Intestinal angina POCT GLUCOSE METER UNSOLICITED RESULTS Routine 05/10/2024 7:24 AM EDT from Last 3 Months Results * EUS (Upper) w/ EGD Intervention(s): EUS w/ Biopsy, EUS w/ FNA (05/10/2024 8:54 AM EDT) Anatomical Region Laterality Modality Endoscopy Narrative 05/10/2024 9:05 AM EDT Esophagogastroduodenoscopy (EGD) & Endoscopic Ultrasound Procedure Note Procedure: EGD with endoscopic ultrasound and biopsies Indications: Shanique Camargo is a 68 y.o. female [...] endoscopic ultrasound to assess the pancreaticobiliary system. Sedation: MAC sedation Attending Physician: Fawad Mcintosh MD Procedure Details: Informed consent was obtained for the procedure, including sedation. Risks of infection, perforation, hemorrhage, adverse drug reaction, and aspiration were discussed. The patient was placed in the left lateral decubitus position. The patient was monitored continuously with ECG tracing, pulse oximetry, blood pressure monitoring, and direct observation. The gastroscope was inserted into the mouth and advanced under direct vision to second portion of the duodenum. A careful inspection was made as the gastroscope was withdrawn, including a retroflexed view of the proximal stomach; findings and interventions are described below. The Olympus video radial echoendoscope was then introduced through the mouth down to the esophagus, stomach and into the first and second part of the duodenum with no difficulties. After completing the endosonographic examination the scope was then withdrawn and the patient tolerated the procedure well and was sent to recovery in stable condition. Appropriate photodocumentation was obtained. Findings: The GE junction was noted at the level of 38 cm. The examination of the stomach was unremarkable. Biopsies were obtained to rule out H. pylori infection. The examination of the duodenum was unremarkable. Biopsies were obtained to rule out celiac disease. The endosonographic examination of the abdominal aorta and the celiac axis was unremarkable. The examination of the pancreatic parenchyma at the body and the tail of the pancreas was unremarkable. The pancreatic duct measured 2.1 mm and 1.7 mm at the body and the tail of the pancreas, respectively. The Pancreatic duct measured 2.8 mm at the head of the pancreas. No pancreatic lesion was found at the head of the pancreas. The common bile duct measured 6.5 mm and the common hepatic duct measured 8.8 mm. Sludge was noted within the common bile duct but no choledocholithiasis was found. The major papilla was normal. The radial echoendoscope was then withdrawn. Complications: None Estimated blood loss: Minimal Disposition: Home Condition: stable Impression: Unremarkable esophagogastroduodenoscopy examination. Biopsies were obtained from the stomach to rule out H. pylori infection and from the duodenum to rule out celiac disease. Unremarkable endosonographic examination of the pancreas. Small amount of sludge noted within the common bile duct. No choledocholithiasis was noted. Unremarkable examination of the major papilla. Recommendations: Follow-up histopathology results. If the biopsies are unremarkable, consider starting Bentyl for the possibility of irritable bowel syndrome as a cause of the abdominal pain. Attending Attestation: I performed the procedure. Merrill Kaufman MD ENDOSCOPY PROCEDURE ORDERABLES * Histology - tissue exam (05/10/2024 8:27 AM EDT) Case Report Surgical Pathology Case: [id number] Authorizing Provider: Fawad Mcintosh MD Collected: 05/10/2024 0827 Ordering Location: [facility] Received: 05/10/2024 [facility] Pathologist: Elena Oakley MD Specimens: A) - Small Intestine, Duodenum, r/o duodenal B) - Gastric, r/o h. pylori 05/15/2024 3:03 PM EDT [facility] ([facility] Final Diagnosis A. Small bowel, duodenum, biopsy: - Duodenal mucosa with features suggestive of peptic injury. - No features of celiac disease noted. B. Stomach, biopsy: - Chronic gastritis with reactive changes. - Immunostain for Helicobacter pylori is negative. - No evidence of intestinal metaplasia or dysplasia. 05/15/2024 3:03 PM EDT [facility] ([facility]) Clinical Information Order Diagnoses K83.9 - Bile leak [ICD-10-CM] R10.11 - RUQ abdominal pain [ICD-10-CM] K55.1 - Intestinal angina [ICD-10-CM] 05/15/2024 3:03 PM EDT [facility] ([facility]) Gross Description A. Small Intestine, Duodenum. The specimen is received in formalin labeled Shanique Canter and duodenum tissue. It consists of 6 pieces of her-pink irregular mucosal tissue ranging from 0.2 cm to 0.4 cm in greatest dimension. The specimen is submitted in toto in 1 cassette. Candis Mckenna, Pathologists' Match Up Person student Abdirahman Chambers Pathologists' Match Up Person B. Gastric. The specimen is received in formalin labeled Shanique Canter and gastric tissue. It consists of 7 pieces of her-pink irregular mucosal tissue ranging from 0.2 cm to 0.5 cm in greatest dimension. The specimen is submitted in toto in 1 cassette. Candis Mckenna, Pathologists' Match Up Person student Abdirahman Chambers, Pathologists' Match Up Person 05/15/2024 3:03 PM EDT [facility] ([facility]) Microscopic Description Microscopic examination performed. 05/15/2024 3:03 PM EDT [facility] ([facility]) Disclaimer The interpretation o f this case included the use of immunohistochemistry [...] the Clinical Laboratory Improvement Amendments of 1998. 05/15/2024 3:03 PM EDT [facility] ([facility]) Tissue Duodenal structure / Unknown 05/10/2024 8:27 AM EDT 05/10/2024 11:53 AM EDT Tissue specimen (specimen) (Gastric) 05/10/2024 8:31 AM EDT 05/10/2024 11:53 AM EDT Fawad Mcintosh MD LAB PATHOLOGY ORDERA BLES [facility] [address] [place], [place] [id number] * POCT glucose meter (05/10/2024 7:24 AM EDT) Glucose POC 101 70 - 105 mg/dL 05/10/2024 7:40 AM EDT [facility] Comment:[email or web address] Blood Capillary blood specimen / Unknown 05/10/2024 7:24 AM EDT 05/10/2024 7:40 AM EDT Narrative [facility] - 05/10/2024 7:40 AM EDT Waived Testing in the ED is performed under the ED CLIA certificate #[id number]. Fawad Mcintosh MD LAB BLOOD ORDERABLES [facility] [address] [place], [place] [id number] from Last 3 Months Care Teams Almond Huller Relationship Specialty Start Date End Date Merrill Kaufman MD [address] [facility] [address] [address] PCP - General 05/10/24
--- OUTSIDE RECORDS SUMMARY | 2024-07-25 16:39 | XMS_ITS | Clinical Summary ---
Author Organization [facility] Address [address] [place] [address] Care Team Providers Care Intern Brand Name Role Phone Merrill Kaufman MD Primary Care Provider [phone] Allergies Active Allergy Reactions Criticality Noted Date [...] 17 g by mouth if needed. Active Encounters Date Type Department Care Team Description 05/10/2024 8:10 AM EDT Anesthesia Event [facility] Endoscopy [address] [place] [address] Christopher Álvraez MD Eisenman-Patel, Taylor, MD 05/10/2024 6:59 AM EDT - 05/10/2024 11:59 PM EDT Hospital Encounter [facility] End[facility] [address] [place] [id number] Fawad Mcintosh MD Bhatt, Shashi B., MD Housey, Stephanie M., CAA Bile leak; RUQ abdominal pain; Intestinal angina Discharge Disposition: Home or Self Care () 05/10/2024 Travel 05/01/2024 Travel from Last 3 Months Social History Tobacco Use Types Packs/Day Years [...] 05/10/2024 7:21 AM EDT Plan of Treatment Health Maintenance Due Date Last Done Comments CT Colonography 1953 Colonoscopy 1955 Colorectal Cancer Screening 1955 FIT-DNA 1953 FIT 1953 FOBT 1955 Medicare Annual Wellness (AWV) 1955 Sigmoidoscopy 1953 Depression Screening 1965 Adult Tetanus 12/22/1975 Zoster Vaccines (1 of 2) 12/22/2003 Mammogram 09/23/2018 09/23/2016 Fall Risk Screening 2018 Pneumococcal Vaccine: 65+ Years (1 of 1 - PCV) 2018 COVID-19 Vaccine (2023-2 5 season) 2023 10/19/2020, 09/24/2020 Influenza Vaccine Completed 03/10/2024, 01/07/2018 HIB Vaccines Aged Out No longer eligi ble based on patient's age to complete this topic HPV Vaccines Aged Out No longer eligi ble based on patient's age to complete this topic IPV Vaccines Aged Out No longer eligi ble based on patient's age to complete this topic Meningococcal B Vaccine Aged Out No l onger eligible based on patient's age to complete this topic Meningococcal Vaccine Aged Out No mark aravind eligible based on patient's age to complete this topic Rotavirus Vaccines Aged Out No longer eligible based on patient's age to complete this topic Procedures Procedure Name Priority Date/Time Associated Diagnosis [...] findings and interventions are described below. The [employer] video radial echoendoscope was then introduced through [...] AM EDT) Case Report Surgical Pathology Case: [id number] Authorizing Provider: Fawad Mcintosh MD Collected: 05/10/2024 0827 Ordering Location: [facility] Received: 05/10/2024 [address] [facility] End[facility] Pathologist: Elena Oakley MD Specimens: A) - Small Intestine, Duodenum, r/o duodenal B) - Gastric, r/o h. pylori 05/15/2024 3:03 PM EDT [facility] Final Diagnosis A. Small bowel, duodenum, biopsy: - Duodenal mucosa with features suggestive of peptic injury. - No features of celiac disease noted. B. Stomach, biopsy: - Chronic gastritis with reactive changes. - Immunostain for Helicobacter pylori is negative. - No evidence of intestinal metaplasia or dysplasia. 05/15/2024 3:03 PM EDT [facility] Clinical Information Order Diagnoses K83.9 - Bile leak [ICD-10-CM] R10.11 - RUQ abdominal pain [ICD-10-CM] K55.1 - Intestinal angina [ICD-10-CM] 05/15/2024 3:03 PM EDT [facility] Gross Description A. Small Intestine, Duodenum. The specimen is received in formalin labeled Shanique Canter and duodenum tissue. It consists of 6 pieces of her-pink irregular mucosal tissue ranging from 0.2 cm to 0.4 cm in greatest dimension. The specimen is submitted in toto in 1 cassette. Candis Mckenna, Pathologists' Weatherization Director student Abdirahman Chambers, Pathologists' Weatherization Director B. Gastric. The specimen is received in formalin labeled Shanique Canter and gastric tissue. It consists of 7 pieces of her-pink irregular mucosal tissue ranging from 0.2 cm to 0.5 cm in greatest dimension. The specimen is submitted in toto in 1 cassette. Candis Mckenna, Pathologists' Weatherization Director student Abdirahman Chambers, Pathologists' Weatherization Director 05/15/2024 3:03 PM EDT [facility] Microscopic Description Microscopic examination performed. 05/15/2024 3:03 PM EDT [facility] Disclaimer The interpretation o f this case [...] Amendments of 1998. 05/15/2024 3:03 PM EDT [facility] Tissue Duodenal structure / Unknown 05/10/2024 8:27 AM EDT 05/10/2024 11:53 AM EDT Tissue specimen (specimen) (Gastric) 05/10/2024 8:31 AM EDT 05/10/2024 11:53 AM EDT Fawad Mcintosh MD LAB PATHOLOGY ORDERA BLES [facility] [address] [place] [address] * POCT glucose meter (05/10/2024 7:24 AM EDT) Glucose POC 101 70 - 105 mg/dL 05/10/2024 7:40 AM EDT [facility] Comment:[id number] Blood Capillary blood specimen / Unknown 05/10/2024 7:24 AM EDT 05/10/2024 7:40 AM EDT Narrative [facility] - 05/10/2024 7:40 AM EDT Waived Testing in the ED is performed under the ED CLIA certificate #[id number]. Fawad Mcintosh MD LAB BLOOD ORDERABLES [facility] [address] [place] [address] from Last 3 Months Care Teams Intern Brand Relationship Specialty Start Date End Date Merrill Kaufman MD [address] [place] [address] PCP - General 05/10/24
--- OUTSIDE RECORDS SUMMARY | 2024-07-25 16:39 | XMS_ITS | Clinical Summary ---
Author Organization [facility] Address [id number] [address] [place] [address] Care Team Providers Care Flight Test Data Acquisition Technician Name Role Phone Kalee Burden DO, Charles L Primary Care Provider Family History Medical History Relation Name Comments Breast cancer Neg Hx Social History Tobacco Use Types Packs/Day Years Used Date Smoking Tobacco: Never Assessed Childcare Answer Date Recorded Childcare Unknown 08/03/2018 Employment Answer Date Recorded Employment Unknown 08/03/2018 Purpose - Life Answer Date Recorded Purpose and direction in life Unknown Comments Unknown Sex and Gender Information Value Date Recorded Sex Assigned at Not on file Legal Sex Female 11:29 AM EDT Gender Identity Not on file Sexual Orientation Not on file Plan of Treatment Not on file Medical Devices Not on file [place] [address] [employer] Care Teams Flight Test Data Acquisition Technician Relationship Specialty Start Date End Date Wes Granda Jr., DO [facility] [place] [address] PCP - General Internal Medicine 09/23/16
--- OUTSIDE RECORDS SUMMARY | 2024-07-25 16:39 | XMS_ITS | Patient Health Record ---
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 Name Role Phone Stanton Kaufman Primary Care Provider KATELYN KAUFMAN Unavailable [phone] Allergies Allergen (clinical drug ingredient) Drug/Non Drug Allergy documented on EMR Reaction Allergy Type Onset Date Status Levaquin severe muscle aches Drug Allergy Active Non-steroidal anti-inflammatory agent (FN) NSAIDs GI INTOLERANCE Drug Allergy Active sucralfate Sucralfate GI intolerance Drug Allergy Active Results Component Value Reference Range Notes XR KNEE LT 3V Reviewed date:08/03/2023 01:43:37 PM Interpretation: Performing Lab: Notes/Report: Source Facility: [place] [address] [place] [address] XRay Report Signed Patient: SHANIQUE CAMARGO MR#: [id number] : 1955 Acct:[id number] Age/Sex: 67 / F ADM Date: 08/02/23 Loc: RAD Attending Dr: Katelyn Kaufman M.D. Ordering Physician: Katelyn Kaufman M.D. Date of Service: 08/02/23 Procedure(s): XR knee LT 3V Accession Number(s): [id number] cc: Katelyn Kaufman M.D. [place] [id number] Patient Name: SHANIQUE CAMARGO MRN: [facility]:[id number] date: 1955 Sex: F Assigned Patient Location: [facility] Current Patient Location: Accession/Order Number: [id number] Exam Date: 08/02/2023 16:25 Report Date: 08/03/2023 07:26 At the request of: KATELYN KAUFMAN Procedure: XR knee LT 3V PROCEDURE: XR knee LT 3V COMPARISON: None. HISTORY: Knee osteoarthritis FINDINGS: BONES:Medial knee hemiarthroplasty in anatomic alignment. No acute fracture, dislocation or mechanical failure. Degenerative changes with marginal osteophyte formation. Chondrocalcinosis. SOFT TISSUES:Negative. No visible soft tissue swelling. EFFUSION:Moderate suprapatellar joint effusion OTHER: Negative. XR/XR knee LT 3V IMPRESSION: Medial hemiarthroplasty Suprapatellar joint effusion Electronically authenticated by: EDMOND CAAL Date: 08/03/2023 07:26 Dictated By: Edmond Caal M.D. Signed By: 08/03/23728 DD/ 5 TD/TT: Research Leader: [place] [address] XRay Report Signed Patient: SUJIT CAMARGO MR#: [id number] : 1955 Acct:[id number] Age/Sex: 67 / F ADM Date: 08/02/23 Loc: [facility] Attending Dr: Haresh Kaufman M.D. Ordering Physician: Katelyn Kaufman M.D. Date of Service: 08/02/23 Procedure(s): XR kne e LT 3V Accession Number(s): [id number] cc: Katelyn Kaufman M.D. [place] [address] Patient Name: SHANIQUE CAMARGO MRN: [facility]:[id number] date: 1955 Sex: F Assigned Patient Location: [facility] Current Patient Location: Accession/Order Numb er: [id number] Exam Date: 08/02/2023 16:25 Report Date: 08/03/2023 07:26 At the request of: KATELYN KAUFMAN Procedure: XR knee LT 3V PROCEDURE: XR knee LT 3V COMPARISON: None. HISTORY: Knee osteoarthritis FINDINGS: BONES:Medial knee hemiarthroplasty in anatomic alignment. No acute fracture, dislocation or mecha nical failure. Degenerative changes with marginal osteophyte formation . Chondrocalcinosis. SOFT TISSUES:Negativ e. No visible soft tissue swelling. EFFUSION:Moderate suprapatellar joint effusion OTHER: Negative. X R/XR knee LT 3V IMPRESSION: Medial hemiarthroplasty Suprapatellar joint effusion Electronically authenticated by: EDMOND CAAL Date: 08/03/2023 07:26 Dictated By: Humble Caal M.D. Signed By: 08/03/2329 DD/ 5 TD/TT: Research Leader: AMYLASE Reviewed date:10/12/2023 02:30:58 PM Interpretation: Performing Lab: Notes/Report: [facility] , Amylase 42 25-115 U/L Performing Lab: see note ML - [facility] LB CBC AUTO DIFF Reviewed date:10/12/2023 02:30:58 PM Interpretation: Performing Lab: Notes/Report: [facility] , White Blood Count 6.4 4.0-11.0 10 3/uL Red Blood Count 4.10 4.20-5.40 10 6/uL Hemoglobin 12.5 12.0-16.0 g/dL Hematocrit 38.4 36.0-48.0 % Mean Corpuscular Volume 93.7 81.0-99.0 fL Mean Corpuscular Hemoglobin 30.5 26.7-34.0 pg Mean Corpuscular HGB Conc 32.6 29.9-35.2 g/dL Red Cell Distribution Width 12.4 11.0-15.0 % Platelet Count 239 150-450 10 3/uL Mean Platelet Volume 11.1 9.5-13.5 fL Neutrophils Percent Auto 51.0 43.0-75.0 % Lymphocytes Percent Auto 37.5 20.5-60.0 % Monocytes Percent Auto 9.7 1.7-12.0 % Eosinophils Percent Auto 1.1 0.9-7.0 % Basophils Percent Auto 0.5 0.2-2.0 % Immature Granulocytes Pct Auto 0.2 0.0-0.5 % Neutrophils Absolute Auto 3.3 1.4-6.5 10 3/uL Lymphocytes Absolute Auto 2.4 1.2-3.8 10 3/uL Monocytes Absolute Auto 0.6 0.3-0.8 10 3/uL Eosinophils Absolute Auto 0.1 0.0-0.7 10 3/uL Basophils Absolute Auto 0.0 0.0-0.1 10 3/uL Immature Granulocytes Abs Auto 0.01 0.00-0.03 10 3/uL Performing Lab: see note ML - [facility] LB LIPASE Reviewed date:10/12/2023 02:30:58 PM Interpretation: Performing Lab: Notes/Report: [facility] , Lipase 38.0 16.0-77.0 U/L Performing Lab: see note ML - [facility] LB PROF 14(COMP METB) Reviewed date:10/12/2023 02:30:58 PM Interpretation: Performing Lab: Notes/Report: [facility] , Sodium 140 136-145 mmol/L Potassium 4.3 3.5-5.1 mmol/L Chloride 104 98-107 mmol/L Carbon Dioxide 27.6 21.0-32.0 mmol/L Anion Gap 12.7 Glucose 89 74-106 mg/dL Blood Urea Nitrogen 16.0 7.0-18.0 mg/dL Creatinine 0.70 0.55-1.02 mg/dL Estimated GFR ( Shireen >60 >=60 Estimated GFR (Non- Isela >60 >=60 BUN Creatinine Ratio 22.9 Calcium 8.9 8.5-10.1 mg/dL Bilirubin Total 0.3 0.2-1.0 mg/dL Aspartate Amino Transferase 20 15-37 U/L Alanine Aminotransferase 26 14-59 U/L Alkaline Phosphatase 73 46-116 U/L Total Protein 6.5 6.4-8.2 g/dL Albumin Level 3.7 3.4-5.0 g/dL Globulin 2.8 Albumin Globulin Ratio 1.3 Performing Lab: see note ML - [facility] LB FL upper GI w air Reviewed date:11/09/2023 02:09:24 PM Interpretation: Performing Lab: Notes/Report: Source Facility: [facility] [place] [address] [address] Fluoroscopy Report Signed Patient: SHANIQUE CAMARGO MR#: [id number] : 1955 Acct:[id number] Age/Sex: 67 / F ADM Date: 11/09/23 Loc: [place] Attending Dr: Katelyn Kaufman M.D. Ordering Physician: Katelyn Kaufman M.D. Date of Service: 11/09/23 Procedure(s): FL upper GI w air Accession Number(s): [id number] cc: Katelyn Kaufman M.D. The [place] [id number] Patient Name: SHANIQUE CAMARGO MRN: [id number]:[id number] date: 1955 Sex: F Assigned Patient Location: [place] Current Patient Location: [place] Accession/Order Number: [id number] Exam Date: 11/09/2023 08:03 Report Date: 11/09/2023 09:09 At the request of: KATELYN KAUFMAN Procedure: FL upper GI w air PROCEDURE: FL upper GI w air, FL cineradiography COMPARISON: None. FLUORO DOSE: 1 minute and 20 seconds of fluoroscopy. 5 images HISTORY: GERD, K21.9 TECHNIQUE: An air contrast upper gastrointestinal series was performed in the usual manner. Standard level fluoroscopic mode of operation utilized. FINDINGS: ESOPHAGUS:Tertiary nonpropulsive contractions when the patient is in supine positioning. Otherwise normal STOMACH: Normal. No obstruction, mass, or ulceration. Normal motility. DUODENUM:Normal. No ulceration or diverticulum. OTHER: Extensive left upper quadrant calcifications likely prior granulomatous infection of the spleen. Moderate degenerative changes of the spine FL/FL upper GI w air IMPRESSION: Tertiary nonpropulsive contractions of the esophagus with the patient is in supine position, otherwise normal upper GI Electronically authenticated by: EDMOND CAAL Date: 11/09/2023 09:09 Dictated By: Edmond Caal M.D. Signed By: 11/09/23911 DD/ 8 TD/TT: Research Leader: [place] [address] Fluoroscopy Report Signed Patient: SUJIT CAMARGO MR#: [id number] : 1955 Acct:[id number] Age/Sex: 67 / F ADM Date: 11/09/23 Loc: [place] Attending Dr: Haresh Kaufman M.D. Ordering Physician: Katelyn Kaufman M.D. Date of Service: 11/09/23 Procedure(s): FL upp er GI w air Accession Number(s): [id number] cc: Katelyn Kaufman M.D. [place] [address] [place] [id number] Patient Name: SHANIQUE CAMARGO MRN: [facility]:[id number] date: 1955 Sex: F Assigned Patient Location: [place] Current Patient Loca tion: FL Accession/Order Numb er: [id number] Exam Date: 11/09/2023 08:03 Report Date: 11/09/2023 09:09 At the request of: KATELYN KAUFMAN Procedure: FL upper GI w air PROCEDURE: FL upper GI w air, FL cineradiography COMPARISON: None. FLUORO DOSE: 1 minut e and 20 seconds of fluoroscopy. 5 images HISTORY: GERD, K21.9 TECHNIQUE: An air contrast upper gastrointestinal series was performed in the usual manner. Standa rd level fluoroscopic mode of operation utilized. FINDINGS: ESOPHAGUS:Tertiary nonpropulsive contractions when the patient is in supine positioning. Otherwi se normal STOMACH: Normal. No obstruction, mass, or ulceration. Normal motility. DUODENUM:Normal. No ulceration or diverticulum. OTHER: Extensive lef t upper quadrant calcifications likely prior granulomatous infection of the spl een. Moderate degenerative changes of the spine F L/FL upper GI w air IMPRESSION: Tertiary nonpropulsi ve contractions of the esophagus with the patient is in supine position, otherwise normal upper GI Electronically authenticated by: EDMOND CAAL Date: 11/09/2023 09:09 Dictated By: Humble Caal M.D. Signed By: 11/09/23911 DD/ 8 TD/TT: Research Leader: AMYLASE Reviewed date:03/06/2024 01:15:20 PM Interpretation: Performing Lab: Notes/Report: [facility] , Amylase 46 25-115 U/L Performing Lab: see note ML - [facility] LB LIPASE Reviewed date:03/06/2024 01:15:20 PM Interpretation: Performing Lab: Notes/Report: [facility] , Lipase 37.0 16.0-77.0 U/L Performing Lab: see note ML - [facility] LB MR angio abdomen wo con Reviewed date:04/26/2024 09:04:53 PM Interpretation: Performing Lab: Notes/Report: Source Facility: [facility] [place] [address] [place] [address] Magnetic Resonance Report Signed Patient: SHANIQUE CAMARGO MR#: [id number] : 1955 Acct:[id number] Age/Sex: 68 / F ADM Date: 04/26/24 Loc: MRI Attending Dr: Katelyn Kaufman M.D. Ordering Physician: Katleyn Kaufman M.D. Date of Service: 04/26/24 Procedure(s): MR angio abdomen wo con Accession Number(s): [id number] cc: Katelyn Kaufman M.D. The [place] [address] Patient Name: SHANIQUE CAMARGO MRN: [id number] date: 1955 Sex: F Assigned Patient Location: MRI Current Patient Location: MRI Accession/Order Number: [id number] Exam Date: 04/26/2024 15:43 Report Date: 04/26/2024 15:50 At the request of: KATELYN KAUFMAN MD Procedure: MR angio abdomen wo con MRA of the abdomen without IV contrast. Reason for exam: Chronic abdominal pain COMPARISON: CT abdomen and pelvis 01/07/2024. TECHNIQUE: Multisequence, multiplanar imaging of the abdomen was obtained. Additional vhyj-ph-dyngfa imaging of the aorta and its major branches were also obtained. FINDINGS: Limited study. The abdominal aorta appears normal in caliber without aneurysm. Single renal arteries are identified without definitive critical stenosis or occlusion. The celiac artery as well as the SMA origins appear grossly patent. Visualized organs demonstrate no gross acute abnormality. MR/MR angio abdomen wo con Impression: Limited study. Abdominal aorta appears normal in caliber without aneurysm. No definitive critical stenosis or occlusion is seen involving the origin of the celiac artery or SMA. No critical stenosis or occlusion is seen involving the origins of the renal arteries. If further evaluation is needed, CTA of the abdomen and pelvis is recommended. Impression dictated by: Yordy Glasgow Jr., D.O.04/26/2024 3:50 PM Dictation Location: [place] [address] Electronically authenticated by: [id number] Y Date: 04/26/2024 15:50 Dictated By: Yordy Glasgow M.D. Signed By: 04/26/24 1552 DD/ 49 TD/TT: Research Leader: [place] [address] Magnetic Resonance Report Signed Patient: SUJIT CAMARGO MR#: [id number] : 1955 Acct:[id number] Age/Sex: 68 / F ADM Date: 04/26/24 Loc: MRI Attending Dr: Haresh Kaufman M.D. Ordering Physician: Katelyn Kaufman M.D. Date of Service: 04/26/24 Procedure(s): MR ang io abdomen wo con Accession Number(s): [id number] cc: Katelyn Kaufman M.D. [place] [address] Patient Name: SHANIQUE CAMARGO MRN: [id number] date: 1955 Sex: F Assigned Patient Location: MRI Current Patient Loca tion: MRI Accession/Order Numb er: [id number] Exam Date: 04/26/2024 15:43 Report Date: 04/26/2024 15:50 At the request of: KATELYN KAUFMAN MD Procedure: MR angio abdomen wo con MRA of the abdomen without IV contrast. Reason for exam: Chr onic abdominal pain COMPARISON: CT abdom en and pelvis 01/07/2024. TECHNIQUE: Multisequ ence, multiplanar imaging of the abdomen was obtained. Additional time-of-f light imaging of the aorta and its major branches were also obtained. FINDINGS: Limited st udy. The abdominal aorta appears normal in caliber without aneurysm. Si ngle renal arteries are identified without definitive critical stenosis or occlusion. The celiac artery as well as the SMA origins appear grossly patent. Visualized organs demonstrate no gross acute abnormality. M R/MR angio abdomen wo con Impression: Limited study. Abdominal aorta appears normal in caliber without aneurysm. No definit gloria critical stenosis or occlusion is seen involving the origin of the celiac artery or SMA. No critical stenosis or occlusion is seen involving the origin s of the renal arteries. If further evaluation is needed, CTA of the abdomen a nd pelvis is recommended. Impression dictated by: Yordy Glasgow Jr., D.OArpita04/26/2024 3:50 PM [facility]ictation [facility] Electronically authenticated by: [id number] Y Date: 04/26/2024 15:50 Dictated By: Yordy Glasgow M.D. Signed By: 04/26/24 155 DD/ 49 TD/TT: Research Leader: ROMULO ABDUL WO MICRO ([id number]) - IN OFFICE (Not yet reviewed by provider) Interpretation: Performing Lab: Notes/Report: COLOR yellow CLARITY cloudy GLUCOSE n BILIRUBIN n KETONE small SPECIFIC GRAVITY 1.015 BLOOD +++ PH 5 PROTEIN 30+ UROBILINOGEN n NITRITE + LEUKOCYTE ESTERASE ++ UA (Urinalysis, Dipstix only - w/o micro) [...] ESTERASE (FERNANDA) - NEG - NEG MG/DL US abdomen complete Reviewed date:12/02/2023 09:52:22 AM Interpretation: Performing Lab: Notes/Report: Source Facility: [facility] [place] [address] [place] [address] Ultrasound Report Signed Patient: SHANIQUE CAMARGO MR#: [id number] : 1955 Acct:[id number] Age/Sex: 67 / F ADM Date: 12/02/23 Loc: US Attending Dr: Katelyn Kaufman M.D. Ordering Physician: Katelyn Kaufman M.D. Date of Service: 12/02/23 Procedure(s): US abdomen complete Accession Number(s): [id number] cc: Katelyn Kaufman M.D. [place] [id number] Patient Name: SHANIQUE CAMARGO MRN: [facility]:[id number] date: 1955 Sex: F Assigned Patient Location: US Current Patient Location: US Accession/Order Number: [id number] Exam Date: 12/02/2023 07:46 Report Date: 12/02/2023 08:59 At the request of: KATELYN KAUFMAN Procedure: US abdomen complete EXAMINATION: US abdomen complete HISTORY: Abdominal Pain COMPARISON: CT abdomen pelvis 09/23/2023 TECHNIQUE: High resolution sonographic examination of the abdomen was performed. FINDINGS: LIVER: Normal. Normal size and echotexture. No significant masses. Normal waveform and flow within the main portal vein, 38 cm/s. BILIARY: Normal. Normal appearing gallbladder and biliary tree. PANCREAS: Normal. No visible mass, abnormal atrophy, or ductal dilatation. SPLEEN: Innumerable calcifications throughout the spleen.. Normal size and echotexture. KIDNEYS: Normal. No mass or obstruction. AORTA/VASCULAR: Normal. No aneurysm.; Patent IVC. OTHER: Negative. US/US abdomen complete IMPRESSION: 1. No acute or suspicious findings to account for patient's symptoms. Electronically authenticated by: SUHAS HOLDEN Date: 12/02/2023 08:59 Dictated By: Suhas Holden M.D. Signed By: 12/02/23901 DD/ 8 TD/TT: Research Leader: The [address] [address] Ultrasound Report Signed Patient: SUJIT CAMARGO MR#: [id number] : 1955 Acct:[id number] Age/Sex: 67 / F ADM Date: 12/02/23 Loc: US Attending Dr: Haresh Kaufman M.D. Ordering Physician: Katelyn Kaufman M.D. Date of Service: 12/02/23 Procedure(s): US abd omen complete Accession Number(s): [id number] cc: Katelyn Kaufman M.D. The [place] [address] Patient Name: SHANIQUE CAMARGO MRN: [id number]:[id number] date: 1955 Sex: F Assigned Patient Location: US Current Patient Loca tion: US Accession/Order Numb er: [id number] Exam Date: 07:46 Report Date: 12/02/2023 08:59 At the request of: KATELYN KAUFMAN Procedure: US abdome n complete EXAMINATION: US abdo men complete HISTORY: Abdominal Pain COMPARISON: CT abdom en pelvis 09/23/2023 TECHNIQUE: High resolution sonographic examination of the abdomen was performed. FINDINGS: LIVER: Normal. Bonny l size and echotexture. No significant masses. Normal waveform and flow wi thin the main portal vein, 38 cm/s. BILIARY: Normal. Nor mal appearing gallbladder and biliary tree. PANCREAS: Normal. No visible mass, abnormal atrophy, or ductal dilatation. SPLEEN: Innumerable calcifications throughout the spleen.. Normal size and echotexture. KIDNEYS: Normal. No mass or obstruction. AORTA/VASCULAR: Norm al. No aneurysm.; Patent IVC. OTHER: Negative. U S/US abdomen complete IMPRESSION: 1. No acute or suspi cious findings to account for patient's symptoms. Electronically authenticated by: SUHAS HOLDEN Date: 12/02/2023 08:59 Dictated By: Suhas Holden M.D. Signed By: 12/02/23901 DD/ 8 TD/TT: Research Leader: US right upper quadrant Reviewed date:09/19/2023 11:16:06 AM Interpretation: Performing Lab: Notes/Report: Source Facility: [facility] [place] [address] [place] [address] Ultrasound Report Signed Patient: SHANIQUE CAMARGO MR#: [id number] : 1955 Acct:[id number] Age/Sex: 67 / F ADM Date: 09/17/23 Loc: US Attending Dr: Katelyn Kaufman M.D. Ordering Physician: Katelyn Kaufman M.D. Date of Service: 09/17/23 Procedure(s): US right upper quadrant Accession Number(s): [id number] cc: Katelyn Kaufman M.D. [address] [id number] Patient Name: SHANIQUE CAMARGO MRN: [facility]:[id number] date: 1955 Sex: F Assigned Patient Location: US Current Patient Location: US Accession/Order Number: [id number] Exam Date: 09/17/2023 10:20 Report Date: 09/17/2023 16:28 At the request of: KATELYN KAUFMAN Procedure: US right upper quadrant EXAMINATION: US right upper quadrant HISTORY: Unspecified Abdominal Pain R10.9 COMPARISON: No relevant comparison available. TECHNIQUE: Transabdominal evaluation of the right upper quadrant. FINDINGS: LIVER: Normal size and echotexture. Color Doppler demonstrates patent hepatic veins. PORTAL VEIN: Duplex Doppler demonstrates normal hepatopetal flow pattern with flow velocity averaging 42 cm/s. GALLBLADDER: No visible gallstones, wall thickening, or pericholecystic free fluid. Negative sonographic Mayfield's sign. BILIARY: No abnormal dilation or stones. Common bile duct diameter is within normal limits. PANCREAS: No visible mass, abnormal atrophy, or duct dilation. KIDNEY: No hydronephrosis. No visible mass or stones. Size: 9.1 x 5.1 x 5.7 cm US/US right upper quadrant IMPRESSION: 1. Normal right upper quadrant ultrasound. Electronically authenticated by: SUHAS HOLDEN Date: 09/17/2023 16:28 Dictated By: Suhas Holden M.D. Signed By: 09/17/23 1631 DD/ 1628 TD/TT: Research Leader: [place] [address] Ultrasound Report Signed Patient: SUJIT CAMARGO MR#: [id number] : 1955 Acct:[id number] Age/Sex: 67 / F ADM Date: 09/17/23 Loc: US Attending Dr: Haresh Kaufman M.D. Ordering Physician: Katelyn Kaufman M.D. Date of Service: 09/17/23 Procedure(s): US rig ht upper quadrant Accession Number(s): [id number] cc: Katelyn Kaufman M.D. The [address] [address] Patient Name: SHANIQUE CAMARGO MRN: [id number] date: 1955 Sex: F Assigned Patient Location: US Current Patient Loca tion: US Accession/Order Numb er: [id number] Exam Date: 09/17/2023 10:20 Report Date: 09/17/2023 16:28 At the request of: KATELYN KAUFMAN Procedure: US right upper quadrant EXAMINATION: US rig t upper quadrant HISTORY: Unspecified Abdominal Pain R10.9 COMPARISON: No relev ant comparison available. TECHNIQUE: Transabdo phyllis evaluation of the right upper quadrant. FINDINGS: LIVER: Normal size a nd echotexture. Color Doppler demonstrates patent hepatic veins. PORTAL VEIN: Duplex Doppler demonstrates normal hepatopetal flow pattern with flow velocity averag ing 42 cm/s. GALLBLADDER: No visi ble gallstones, wall thickening, or pericholecystic free fluid. Negative sonographic Mayfield's sign. BILIARY: No abnormal dilation or stones. Common bile duct diameter is within normal limits. PANCREAS: No visible mass, abnormal atrophy, or duct dilation. KIDNEY: No hydronephrosis. No visible mass or stones. Size: 9.1 x 5.1 x 5.7 cm U S/US right upper quadrant IMPRESSION: 1. Normal right uppe r quadrant ultrasound. Electronically authenticated by: SUHAS HOLDEN Date: 09/17/2023 16:28 Dictated By: Suhas Holden M.D. Signed By: 09/17/23 1634 DD/ 1628 TD/TT: Research Leader: MIGUEL ANGEL Reviewed date:09/23/2023 07:03:55 PM Interpretation: Performing Lab: Notes/Report: [facility] , Creatinine 0.66 0.55-1.02 mg/dL Estimated GFR ( Shireen >60 >=60 Estimated GFR (Non- Isela >60 >=60 Performing Lab: see note ML - [facility] LB CT abdomen pelvis w con Reviewed date:09/26/2023 03:58:23 PM Interpretation: Performing Lab: Notes/Report: Source Facility: [place] [address] [place] [address] CT Scan Report Signed Patient: SHANIQUE CAMARGO MR#: [id number] : 1955 Acct:[id number] Age/Sex: 67 / F ADM Date: 09/23/23 Loc: LAB Attending Dr: Katelyn Kaufman M.D. Ordering Physician: Katelyn Kaufman M.D. Date of Service: 09/23/23 Procedure(s): CT abdomen pelvis w con Accession Number(s): [id number] cc: Katelyn Kaufman M.D. [place] [address] Patient Name: SHANIQUE CAMARGO MRN: [id number] date: 1955 Sex: F Assigned Patient Location: LAB Current Patient Location: Accession/Order Number: [id number] Exam Date: 09/23/2023 13:15 Report Date: 09/24/2023 05:15 At the request of: KATELYN KAUFMAN Procedure: CT abdomen pelvis w con EXAMINATION: CT abdomen pelvis w con HISTORY: Gastroenteritis ; lower abdominal pain, nausea COMPARISON: Ultrasound right upper quadrant 09/17/2023, CT pelvis 07/25/2020 TECHNIQUE: Axial, Coronal, and Sagittal images were obtained without and/or with IV contrast as indicated by examination type. Dose reduction techniques were achieved by using automated exposure control and/or adjustment of mA and/or kV according to patient size and/or use of iterative reconstruction technique. FINDINGS: LUNG BASES: No visible pulmonary or pleural disease. LIVER: Tiny round hypodensity within hepatic dome favoring a cyst. No enlargement, atrophy, suspicious density, or significant focal lesion. BILIARY: No dilatation or calcification. PANCREAS: No lesion, fluid collection, or abnormal duct dilatation. SPLEEN: Innumerable calcifications within spleen compatible with chronic granulomatous disease. No enlargement. ADRENALS: 1.3 cm left adrenal nodule; nonspecific. KIDNEYS: No mass, obstruction, or calcification. BOWEL/MESENTERY: Innumerable diverticula involving the descending and sigmoid colon with suspected mild inflammatory changes of the proximal and mid sigmoid colon. No visible mass, obstruction, or focal bowel wall thickening. Normal appendix. Unremarkable stomach and small bowel. AORTA/VASCULAR: No aneurysm or dissection. RETROPERITONEUM: No mass or adenopathy. LYMPH NODES: No adenopathy. URINARY BLADDER: No visible focal wall thickening, lesion, or calculus. PELVIC ORGANS: Hysterectomy. ABDOMINAL WALL: No mass or hernia. BONES: L4-L5 marked degenerative disc disease with degenerative sclerotic endplate changes. Multilevel moderate degenerative disc disease. OTHER: Negative. CT/CT abdomen pelvis w con IMPRESSION: 1. Suspect mild acute diverticulitis of the sigmoid colon. Electronically authenticated by: SUHAS HOLDEN Date: 09/24/2023 05:15 Dictated By: Suhas Holden M.D. Signed By: 09/24/23517 DD/ 4 TD/TT: Research Leader: [place] [address] CT Scan Report Signed Patient: SUJIT CAMARGO MR#: [id number] : 1955 Acct:[id number] Age/Sex: 67 / F ADM Date: 09/23/23 Loc: LAB Attending Dr: Haresh Kaufman M.D. Ordering Physician: Katelyn Kaufman M.D. Date of Service: 09/23/23 Procedure(s): CT abd omen pelvis w con Accession Number(s): [id number] cc: Katelyn Kaufman M.D. [place] [address] Patient Name: SHANIQUE CAMARGO MRN: [id number]:[id number] date: 1955 Sex: F Assigned Patient Location: LAB Current Patient Location: Accession/Order Numb er: [id number] Exam Date: 09/23/2023 13:15 Report Date: 09/24/2023 05:15 At the request of: KATELYN KAUFMAN Procedure: CT abdome n pelvis w con EXAMINATION: CT abdo men pelvis w con HISTORY: Gastroenter itis ; lower abdominal pain, nausea COMPARISON: Ultrasou nd right upper quadrant 09/17/2023, CT pelvis 07/25/2020 TECHNIQUE: Axial, Coronal, and Sagittal images were obtained without and/or with IV contrast as indicated by examination type. Dose reduction techniques were achieved by usi ng automated exposure control and/or adjustment of mA and/or kV according to patient size and/or use of iterative reconstruction technique. FINDINGS: LUNG BASES: No visib le pulmonary or pleural disease. LIVER: Tiny round hypodensity within hepatic dome favoring a cyst. No enlargement, atrophy , suspicious density, or significant focal lesion. BILIARY: No dilatati on or calcification. PANCREAS: No lesion, fluid collection, or abnormal duct dilatation. SPLEEN: Innumerable calcifications within spleen compatible with chronic granulomatous diseas e. No enlargement. ADRENALS: 1.3 cm lef t adrenal nodule; nonspecific. KIDNEYS: No mass, obstruction, or calcification. BOWEL/MESENTERY: Innumerable diverticula involving the descending and sigmoid colon with suspected mild inflammatory changes of the proximal and mid sigmoid colon. No visible ma ss, obstruction, or focal bowel wall thickening. Normal appendix. Unremarkab le stomach and small bowel. AORTA/VASCULAR: No aneurysm or dissection. RETROPERITONEUM: No mass or adenopathy. LYMPH NODES: No adenopathy. URINARY BLADDER: No visible focal wall thickening, lesion, or calculus. PELVIC ORGANS: Hysterectomy. ABDOMINAL WALL: No m ass or hernia. BONES: L4-L5 marked degenerative disc disease with degenerative sclerotic endplate changes. Multilevel moderate degenerative disc disease. OTHER: Negative. C T/CT abdomen pelvis w con IMPRESSION: 1. Suspect mild acut e diverticulitis of the sigmoid colon. Electronically authenticated by: SUHAS HOLDEN Date: 09/24/2023 05:15 Dictated By: Suhas Holden M.D. Signed By: 09/24/23 0518 DD/ 0515 TD/TT: Research Leader: C. Difficile PCR Reviewed date:10/12/2023 07:29:51 PM Interpretation: Performing Lab: Notes/Report: [facility] , C. Difficile PCR NEGATIVE NEGATIVE Performing Lab: see note ML - [facility] LB E coli Shiga Toxin EIA Reviewed date:10/17/2023 09:23:42 PM Interpretation: Performing Lab: Notes/Report: [facility] , E coli Shiga Toxin EIA See Below For Report E coli Shiga Toxin EIA WILL FOLLOW E coli Shiga Toxin EIA Negative E coli Shiga Toxin EIA WILL FOLLOW E coli Shiga Toxin EIA Performed at: [facility] E coli Shiga Toxin EIA WILL FOLLOW E coli Shiga Toxin EIA [address], [place] [id number] E coli Shiga Toxin EIA WILL FOLLOW E coli Shiga Toxin EIA Seating Upholsterer: Jose Alejandro Benjamin PhD, Phone: [phone] E coli Shiga Toxin EIA WILL FOLLOW Performing Lab: see note LC - [facility] LB SEE REPORT - Grain Mixer Id information not found for OBX-specific stage producer legend Salmonella/Shigella Screen Reviewed date:10/17/2023 09:23:42 PM Interpretation: Performing Lab: Notes/Report: [facility] , Salmonella/Shigella Screen See Below For Report Salmonella/Shigella Screen Salmonella/Shigella Screen No Salmonella or Shigella recovered. Salmonella/Shigella Screen Performing Lab: see note - [facility] LB Campylobacter Culture Reviewed date:10/17/2023 09:23:42 PM Interpretation: Performing Lab: Notes/Report: [facility] , Campylobacter Culture See Below For Report Campylobacter Culture No Campylobacter species isolated. Performing Lab: see note LC - [facility] LB MM tomosynthesis screening B I Reviewed date:10/31/2023 08:04:56 PM Interpretation: Performing Lab: Notes/Report: Source Facility: [place] [address] Mammography Report Signed Patient: SHANIQUE CAMARGO MR#: [id number] : 1955 Acct:[id number] Age/Sex: 67 / F ADM Date: 10/28/23 Loc: MAMMO Attending Dr: Katelyn Kaufman M.D. Ordering Physician: Katelyn Kaufman M.D. Results: Date of Service: 10/28/23 Follow Up: Procedure(s): MM tomosynthesis screening BI Accession Number(s): [id number] cc: Katelyn Kaufman M.D. Patient Name: SHANIQUE CAMARGO MR#: [id number] : 1955 Exam Date: 10/28/2023 Ordering Doctor: DR Katelyn Kaufman . RADIOLOGY REPORT PROCEDURE: MM TOMOSYNTHESIS SCREENING BI COMPARISON: MM TOMOSYNTHESIS SCREENING BI, 09/25/2022. MG MAMM SCREEN 3D TERA CAD, 07/04/2021. MG MAMM SCREEN 3D TERA CAD, 06/19/2020. MAMMO TERA SCREEN, 09/23/2016. INDICATIONS: Screening Calculator Name NCI Breast Cancer Risk Assessment Tool 5 Year Breast Cancer Risk 1.40% Lifetime Breast Cancer Risk 4.30% Personal Breast Cancer No Personal Ovarian Cancer No Treatments None Family Cancers Mother with colon cancer at age 72. LOCATION: [facility] BREAST COMPOSITION: The breasts are almost entirely fatty. FINDINGS: DIAGNOSTIC CATEGORY 1--NEGATIVE. RIGHT BREAST: No significant suspicious finding. No significant change has occurred. LEFT BREAST: No significant suspicious finding. No significant change has occurred. RECOMMENDATIONS: ROUTINE MAMMOGRAM AND CLINICAL EVALUATION IN 12 MONTHS. PLEASE NOTE: A NORMAL MAMMOGRAM DOES NOT EXCLUDE THE POSSIBILITY OF BREAST CANCER. A CLINICALLY SUSPICIOUS PALPABLE LUMP SHOULD BE BIOPSIED. Dictated by: Suhas Holden M.D. on 10/29/2023 at 15:02 Approved by: Suhas Holden M.D. on 10/29/2023 at 16:01 Dictated By: Suhas Holden M.D. Signed By: 10/29/23 1603 DD/ 1601 TD/TT: Research Leader: [place] [address] Mammography Report Signed Patient: SUJIT CAMARGO MR#: [id number] : 1955 Acct:[id number] Age/Sex: 67 / F ADM Date: 10/28/23 Loc: MAMMO Attending Dr: Haresh Kaufman M.D. Ordering Physician: Katelyn Kaufman M.D. Results: Date of Service: 07/15 Follow Up: Procedure(s): MM tomosynthesis screening BI Accession Number(s): [id number] cc: Katelyn Kaufman M.D. Patient Name: SHANIQUE CAMARGO MR#: [id number] : 1955 Exam Date: 10/28/2023 Ordering Doctor: DR Katelyn Kaufman . RADIOLOGY REPORT PROCEDURE: MM TOMOSYNTHESIS SCREENING BI COMPARISON: MM TOMOSYNTHESIS SCREENING BI, 09/25/2022. MG MAMM SCREEN 3D TERA CAD, 07/04/2021. MG MAMM SCREEN 3D TERA CAD, 06/19/2020. MAMMO TERA SCREEN, 09/23/2016. INDICATIONS: Screening Calculator Name NCI Breast Cancer Risk Assessment Tool 5 Year Breast Cancer Risk 1.40% Lifetime Breast Canc er Risk 4.30% Personal Breast Cancer No Personal Ovarian Can cer No Treatments None Family Cancers Mothe r with colon cancer at age 72. LOCATION: [facility] BREAST COMPOSITION: The breasts are almost entirely fatty. FINDINGS: DIAGNOSTIC CATEGORY 1--NEGATIVE. RIGHT BREAST: No significant suspicious finding. No significant change has occurred. LEFT BREAST: No significant suspicious finding. No significant change has occurred. RECOMMENDATIONS: ROUTINE MAMMOGRAM AN D CLINICAL EVALUATION IN 12 MONTHS. PLEASE NOTE: A BONNY L MAMMOGRAM DOES NOT EXCLUDE THE POSSIBILITY OF BREAST CANCER. A CLINICALLY SUSPICIOUS PALPABLE LUMP SHOULD BE BIOPSIED. Dictated by: Suhas Holden M.D. on 10/29/2023 at 15:02 Approved by: Suhas Holden M.D. on 10/29/2023 at 16:01 Dictated By: Suhas Holden M.D. Signed By: 10/29/23 1603 DD/ 1601 TD/TT: Research Leader: [place] cineradiography Reviewed date:11/09/2023 02:09:24 PM Interpretation: Performing Lab: Notes/Report: Source Facility: [place] [address] Fluoroscopy Report Signed Patient: SHANIQUE ACMARGO MR#: [id number] : 1955 Acct:[id number] Age/Sex: 67 / F ADM Date: 11/09/23 Loc: [place] Attending Dr: Katelyn Kaufman M.D. Ordering Physician: Katelyn Kaufman M.D. Date of Service: 11/09/23 Procedure(s): FL cineradiography Accession Number(s): [id number] cc: Katelyn Kaufman M.D. [address] [address] Patient Name: SHANIQUE CAMARGO MRN: [id number] date: 1955 Sex: F Assigned Patient Location: [place] Current Patient Location: [place] Accession/Order Number: [id number] Exam Date: 11/09/2023 08:03 Report Date: 11/09/2023 09:09 At the request of: KATELYN KAUFMAN Procedure: FL cineradiography PROCEDURE: FL upper GI w air, FL cineradiography COMPARISON: None. FLUORO DOSE: 1 minute and 20 seconds of fluoroscopy. 5 images HISTORY: GERD, K21.9 TECHNIQUE: An air contrast upper gastrointestinal series was performed in the usual manner. Standard level fluoroscopic mode of operation utilized. FINDINGS: ESOPHAGUS:Tertiary nonpropulsive contractions when the patient is in supine positioning. Otherwise normal STOMACH: Normal. No obstruction, mass, or ulceration. Normal motility. DUODENUM:Normal. No ulceration or diverticulum. OTHER: Extensive left upper quadrant calcifications likely prior granulomatous infection of the spleen. Moderate degenerative changes of the spine FL/FL cineradiography IMPRESSION: Tertiary nonpropulsive contractions of the esophagus with the patient is in supine position, otherwise normal upper GI Electronically authenticated by: EDMOND CAAL Date: 11/09/2023 09:09 Dictated By: dEmond Caal M.D. Signed By: 11/09/23911 DD/ 8 TD/TT: Research Leader: [place] [address] Fluoroscopy Report Signed Patient: SUJIT CAMARGO MR#: [id number] : 1955 Acct:[id number] Age/Sex: 67 / F ADM Date: 11/09/23 Loc: [place] Attending Dr: Haresh Kaufman M.D. Ordering Physician: Katelyn Kaufman M.D. Date of Service: 11/09/23 Procedure(s): FL cineradiography Accession Number(s): [id number] cc: Katelyn Kaufman M.D. [address] [id number] Patient Name: SHANIQUE CAMARGO MRN: [id number] date: 1955 Sex: F Assigned Patient Location: HI Current Patient Loca tion: FL Accession/Order Numb er: [id number] Exam Date: 11/09/2023 08:03 Report Date: 11/09/2023 09:09 At the request of: KATELYN KAUFMAN Procedure: FL cineradiography PROCEDURE: FL upper GI w air, FL cineradiography COMPARISON: None. FLUORO DOSE: 1 minut e and 20 seconds of fluoroscopy. 5 images HISTORY: GERD, K21.9 TECHNIQUE: An air contrast upper gastrointestinal series was performed in the usual manner. Standa rd level fluoroscopic mode of operation utilized. FINDINGS: ESOPHAGUS:Tertiary nonpropulsive contractions when the patient is in supine positioning. Otherwi se normal STOMACH: Normal. No obstruction, mass, or ulceration. Normal motility. DUODENUM:Normal. No ulceration or diverticulum. OTHER: Extensive lef t upper quadrant calcifications likely prior granulomatous infection of the spl een. Moderate degenerative changes of the spine F L/FL cineradiography IMPRESSION: Tertiary nonpropulsi ve contractions of the esophagus with the patient is in supine position, otherwise normal upper GI Electronically authenticated by: EDMOND CAAL Date: 11/09/2023 09:09 Dictated By: Humble Caal M.D. Signed By: 11/09/23911 DD/ 8 TD/TT: Research Leader: JESUS hepatobiliary w pharm Reviewed date:12/02/2023 07:16:07 PM Interpretation: Performing Lab: Notes/Report: Source Facility: [place] [address] Nuclear Medicine Report Signed with Addenda Patient: SHANIQUE CAMARGO MR#: [id number] : 1955 Acct:[id number] Age/Sex: 67 / F ADM Date: 12/02/23 Loc: US Attending Dr: Katelyn Kaufman M.D. Ordering Physician: Katelyn Kaufman M.D. Date of Service: 12/02/23 Procedure(s): JESUS hepatobiliary w pharm Accession Number(s): [id number] cc: Katelyn Kaufman M.D. ADDENDUM The [address] [address] Patient Name: SHANIQUE CAMARGO MRN: [id number] date: 1955 Sex: F Assigned Patient Location: Current Patient Location: Accession/Order Number: [id number] Exam Date: 12/02/2023 08:00 Report Date: 12/02/2023 15:03 At the request of: KATELYN KAUFMAN Procedure: NM hepatobiliary w pharm Begin Addendum #1 CORRECTION: Under technique dose should've stated 4. 9 mCi technetium 99m (voice-recognition error original report). Original Report EXAMINATION: NM hepatobiliary w pharm HISTORY: ABDOMINAL PAIN , nausea, right upper quadrant pain radiating to her back COMPARISON: Ultrasound abdomen complete 12/02/2023 TECHNIQUE: Radionuclide hepatobiliary imaging was performed after intravenous injection of 4. 9 Ci Tc-99m OSMAN derivative with sequential acquisitions every 1 minute for one hour. Hepatobiliary imaging with gallbladder ejection fraction analysis was then performed with sequential imaging every 1 minute for 60 minutes following ingestion of 8 oz. Ensure Plus. FINDINGS: LIVER: Slightly delayed but otherwise uniform radiotracer uptake and clearing. BILIARY DUCTS: Normal radioisotopic biliary excretion. GALLBLADDER: Normal filling, but only slight emptying. INTESTINE: Limited radiotracer within the bowel. But no complete obstruction of the common bile duct. EJECTION FRACTION: 20 % within 60 minutes. (Normal EF > 38%). OTHER: Negative. Addendum Dictated By: Suhas Holden M.D. Addendum Signed By: <Electronically signed by Suhas Holden M.D.> 12/02/23 1511 Addendum Cosigned By: DD/ /15/1502 TD/TT: / ADDENDUM NM/NM hepatobiliary w pharm IMPRESSION: 1. Abnormal gallbladder emptying suggestive of dyskinesia or ball-valve type obstruction. Electronically authenticated by: SUHAS HOLDEN Date: 12/02/2023 15:03 Addendum Dictated By: Suhas Holden M.D. Addendum Signed By: <Electronically signed by Suhas Holden M.D.> 12/02/23 1511 Addendum Cosigned By: DD/ /15/1502 TD/TT: / [address] [address] Patient Name: SHANIQUE CAMARGO MRN: [id number] date: 1955 Sex: F Assigned Patient Location: US Current Patient Location: US Accession/Order Number: [id number] Exam Date: 12/02/2023 08:00 Report Date: 12/02/2023 13:03 At the request of: KATELYN KAUFMAN Procedure: NM hepatobiliary w pharm EXAMINATION: NM hepatobiliary w pharm HISTORY: ABDOMINAL PAIN , nausea, right upper quadrant pain radiating to her back COMPARISON: Ultrasound abdomen complete 12/02/2023 TECHNIQUE: Radionuclide hepatobiliary imaging was performed after intravenous injection of 4.9 Ci Tc-99m OSMAN derivative with sequential acquisitions every 1 minute for one hour. Hepatobiliary imaging with gallbladder ejection fraction analysis was then performed with sequential imaging every 1 minute for 60 minutes following ingestion of 8 oz. Ensure Plus. FINDINGS: LIVER: Slightly delayed but otherwise uniform radiotracer uptake and clearing. BILIARY DUCTS: Normal radioisotopic biliary excretion. GALLBLADDER: Normal filling, but only slight emptying. INTESTINE: Limited radiotracer within the bowel. But no complete obstruction of the common bile duct. EJECTION FRACTION: 20 % within 60 minutes. (Normal EF > 38%). OTHER: Negative. NM/NM hepatobiliary w pharm IMPRESSION: 1. Abnormal gallbladder emptying suggestive of dyskinesia or ball-valve type obstruction. Electronically authenticated by: SUHAS HOLDEN Date: 12/02/2023 13:03 Dictated By: Suhas Holden M.D. Signed By: 12/02/23 1305 DD/ 02 TD/TT: Research Leader: The [address] [address] Nuclear Medicine Report Signed with Addenda Patient: SUJIT CAMARGO MR#: [id number] : 1955 Acct:[id number] Age/Sex: 67 / F ADM Date: 12/02/23 Loc: US Attending Dr: Haresh Kaufman M.D. Ordering Physician: Katelyn Kaufman M.D. Date of Service: 12/02/23 Procedure(s): NM hepatobiliary w pharm Accession Number(s): [id number] cc: Katelyn Kaufman M.D. ADDENDUM [address] [address] Patient Name: SHANIQUE CAMARGO MRN: [facility]:[id number] date: 1955 Sex: F Assigned Patient Location: US Current Patient Loca tion: US Accession/Order Numb er: [id number] Exam Date: 08:00 Report Date: 12/02/2023 15:03 At the request of: KATELYN KAUFMAN Procedure: NM hepatobiliary w pharm Begin Addendum #1 CORRECTION: Under technique dose should've stated 4. 9 mCi technetium 99m (voice-recognition e rror original report). Original Report EXAMINATION: [place] hepatobiliary w pharm HISTORY: ABDOMINAL P AIN , nausea, right upper quadrant pain radiating to her back COMPARISON: Ultrasou nd abdomen complete 12/02/2023 TECHNIQUE: Radionucl bertha hepatobiliary imaging was performed after intravenous injection of 4. 9 Ci Tc-99m OSMAN derivative with sequential acquisitions every 1 minute for one hour. Hepatobiliary imaging with gallbladder ejection fraction analysis was then performed with sequential imaging every 1 minute for 60 minutes following ingestion of 8 oz. Ensure Plus. FINDINGS: LIVER: Slightly darshan yed but otherwise uniform radiotracer uptake and clearing. BILIARY DUCTS: Bonny l radioisotopic biliary excretion. GALLBLADDER: Normal filling, but only slight emptying. INTESTINE: Limited radiotracer within the bowel. But no complete obstruction of the common bile duct. EJECTION FRACTION: 2 0 % within 60 minutes. (Normal EF > 38%). OTHER: Negative. Addendum Dictated By : Suhas Holden M.D. Addendum Signed By: <Electronically signed by Suhas Holden M.D.> 12/02/23 1511 Addendum Cosigned By: DD/ /15/1502 TD/TT: / ADDENDUM N M/NM hepatobiliary w pharm IMPRESSION: 1. Abnormal gallblad husam emptying suggestive of dyskinesia or ball-valve type obstruction. Electronically authenticated by: SUHAS HOLDEN Date: 12/02/2023 15:03 Addendum Dictated By : Suhas Holden M.D. Addendum Signed By: <Electronically signed by Suhas Holden M.D.> 12/02/23 1511 Addendum Cosigned By: DD/ /15/1502 TD/TT: / [place] [address] Patient Name: SHANIQUE CAMARGO MRN: [facility]:[id number] date: 1955 Sex: F Assigned Patient Location: US Current Patient Loca tion: US Accession/Order Numb er: [id number] Exam Date: 08:00 Report Date: 12/02/2023 13:03 At the request of: KATELYN KAUFMAN Procedure: NJ hepatobiliary w pharm EXAMINATION: NJ hepatobiliary w pharm HISTORY: ABDOMINAL P AIN , nausea, right upper quadrant pain radiating to her back COMPARISON: Ultrasou nd abdomen complete 12/02/2023 TECHNIQUE: Radionucl bertha hepatobiliary imaging was performed after intravenous injection of 4.9 Ci Tc-99m OSMAN derivative with sequential acquisitions every 1 minute for one hour. Hepatobiliary imaging with gallbladder ejection fraction analysis was then performed with sequential imaging every 1 minute for 60 minutes following ingestion of 8 oz. Ensure Plus. FINDINGS: LIVER: Slightly darshan yed but otherwise uniform radiotracer uptake and clearing. BILIARY DUCTS: Bonny l radioisotopic biliary excretion. GALLBLADDER: Normal filling, but only slight emptying. INTESTINE: Limited radiotracer within the bowel. But no complete obstruction of the common bile duct. EJECTION FRACTION: 2 0 % within 60 minutes. (Normal EF > 38%). OTHER: Negative. N M/NM hepatobiliary w pharm IMPRESSION: 1. Abnormal gallblad husam emptying suggestive of dyskinesia or ball-valve type obstruction. Electronically authenticated by: SUHAS HOLDEN Date: 12/02/2023 13:03 Dictated By: Suhas Holden M.D. Signed By: 12/02/23 1305 DD/ 1303 TD/TT: Research Leader: ECG 12 lead Reviewed date:12/12/2023 04:06:54 PM Interpretation: Performing Lab: Notes/Report: Source Facility: [place] [address] [place] [address] Electrocardiograph Report Signed Patient: SHANIQUE CAMARGO MR#: [id number] : 1955 Acct:[id number] Age/Sex: 67 / F ADM Date: 12/10/23 Loc: PST Attending Dr: Kamron Hayden D.O. Ordering Physician: Kala Asencio NP Date of Service: 12/10/23 Procedure(s): ECG 12 lead Accession Number(s): [id number] cc: [facility] Test Date: 2023-12-10 Pat Name: SHANIQUE CAMARGO Department: Room: - Gender: Female Mechanical Lead: : 1955 Requested By: KATELYN KAUFMAN Order Number: [id number] Reading MD: RANDELL HERNANDEZ Measurements Intervals [place] Rate: 67 P: 35 PA: 144 QRS: 44 QRSD: 87 T: 30 QT: 371 QTc: 394 Interpretive Statements SINUS RHYTHM Compared to ECG 08/22/2020 11:34:46 Right-axis deviation no longer present Electronically Signed On 12-12-2023 12:39:01 EDT by RANDELL HERNANDEZ Dictated By: Randell Hernandez D.O. Signed By: 12/12/23 1239 DD/ 1421 TD/TT: Research Leader: [place] [address] Electrocardiograph Report Signed Patient: SUJIT CAMARGO MR#: [id number] : 1955 Acct:[id number] Age/Sex: 67 / F ADM Date: 12/10/23 Loc: PST Attending Dr: Kamron Hayden D.O. Ordering Physician: Kala Asencio NP Date of Service: 12/10/23 Procedure(s): ECG 12 lead Accession Number(s): [id number] cc: [facility] Test Date: 2023-12-10 Pat Name: SHANIQUE BARR Department: 49 Room: - Gender: Female Mechanical Lead: : 1955 Requ ested By: KATELYN KAUFMAN Order Number: [id number] Reading MD: RANDELL HERNANDEZ Measurements Intervals [place] Rate: 67 P: 35 PA: 144 QRS: 44 QRSD: 87 T: 30 QT: 371 QTc: 394 Interpretive Statements SINUS RHYTHM Compared to ECG 08/22/2020 11:34:46 Right-axis deviation no longer present Electronically Della d On 12-12-2023 12:39:01 EDT by RANDELL HERNANDEZ Dictated By: Randell Hernandez D.O. Signed By: 12/12/23 1239 DD/ 1421 TD/TT: Research Leader: CBC AUTO DIFF Reviewed date:01/09/2024 01:25:50 PM Interpretation: Performing Lab: Notes/Report: [facility] , White Blood Count 7.4 4.0-11.0 10 3/uL Red Blood Count 4.35 4.20-5.40 10 6/uL Hemoglobin 13.3 12.0-16.0 g/dL Hematocrit 40.3 36.0-48.0 % Mean Corpuscular Volume 92.6 81.0-99.0 fL Mean Corpuscular Hemoglobin 30.6 26.7-34.0 pg Mean Corpuscular HGB Conc 33.0 29.9-35.2 g/dL Red Cell Distribution Width 12.6 11.0-15.0 % Platelet Count 261 150-450 10 3/uL Mean Platelet Volume 11.1 9.5-13.5 fL Neutrophils Percent Auto 74.5 43.0-75.0 % Lymphocytes Percent Auto 17.9 20.5-60.0 % Monocytes Percent Auto 6.6 1.7-12.0 % Eosinophils Percent Auto 0.5 0.9-7.0 % Basophils Percent Auto 0.4 0.2-2.0 % Immature Granulocytes Pct Auto 0.1 0.0-0.5 % Neutrophils Absolute Auto 5.5 1.4-6.5 10 3/uL Lymphocytes Absolute Auto 1.3 1.2-3.8 10 3/uL Monocytes Absolute Auto 0.5 0.3-0.8 10 3/uL Eosinophils Absolute Auto 0.0 0.0-0.7 10 3/uL Basophils Absolute Auto 0.0 0.0-0.1 10 3/uL Immature Granulocytes Abs Auto 0.01 0.00-0.03 10 3/uL Performing Lab: see note ML - [facility] LB LACTATE or LACTIC ACID Reviewed date:01/09/2024 01:25:50 PM Interpretation: Performing Lab: Notes/Report: [facility] , Lactate/Lactic Acid 0.6 0.4-2.0 mmol/L Performing Lab: see note ML - [facility] LB LIPASE Reviewed date:01/09/2024 01:25:50 PM Interpretation: Performing Lab: Notes/Report: [facility] , Lipase 31.0 16.0-77.0 U/L Performing Lab: see note - [facility] PROF 14(COMP METB) Reviewed date:01/09/2024 01:25:50 PM Interpretation: Performing Lab: Notes/Report: [facility] , Sodium 143 136-145 mmol/L Potassium 4.1 3.5-5.1 mmol/L Chloride 105 98-107 mmol/L Carbon Dioxide 23.0 21.0-32.0 mmol/L Anion Gap 19.1 Glucose 105 74-106 mg/dL Blood Urea Nitrogen 11.0 7.0-18.0 mg/dL Creatinine 0.64 0.55-1.02 mg/dL Estimated GFR ( Shireen >60 >=60 mL/min/1.73m 2 Estimated GFR (Non- Isela >60 >=60 mL/min/1.73m 2 BUN Creatinine Ratio 17.2 Calcium 8.9 8.5-10.1 mg/dL Bilirubin Total 0.6 0.2-1.0 mg/dL Aspartate Amino Transferase 21 15-37 U/L Alanine Aminotransferase 23 14-59 U/L Alkaline Phosphatase 79 46-116 U/L Total Protein 7.0 6.4-8.2 g/dL Albumin Level 3.7 3.4-5.0 g/dL Globulin 3.3 Albumin Globulin Ratio 1.1 Performing Lab: see note ML - [facility] LB UA RANDOM W or MICROSCOPIC Reviewed date:01/09/2024 01:25:50 PM Interpretation: Performing Lab: Notes/Report: [facility] , Color Urine YELLOW YELLOW Clarity Urine CLEAR CLEAR Specific [place] Urine >=1.030 1.005-1.025 pH Urine 5.5 5.0-9.0 Protein Urine NEGATIVE NEG/TRACE mg/dL Glucose Urine UA NEGATIVE NEGATIVE mg/dL Bilirubin Urine NEGATIVE NEGATIVE Ketones Urine 15 NEGATIVE mg/dL Blood Urine NEGATIVE NEGATIVE Nitrite Urine NEGATIVE NEGATIVE Urobilinogen Urine 0.2 0.2-1.0 EU/dL Leukocyte Esterase Urine NEGATIVE NEGATIVE WBC Urine 0-2 NONE SEEN #/HPF RBC Urine 0-2 0-2 #/HPF Bacteria Urine TRACE NONE SEEN #/HPF Mucus Urine NONE SEEN NONE SEEN Squamous Epithelial Cell Urine RARE NONE/RARE #/LPF Crystals Seen? None Seen None Seen #/HPF Cast Seen? NONE SEEN NONE SEEN #/LPF Performing Lab: see note [facility] Troponin I High Sensitivity Reviewed date:01/09/2024 01:25:50 PM Interpretation: Performing Lab: Notes/Report: [facility] , Troponin I High Sensitivity 5.9 4.0-51.3 pg/mL CUT-OFF POINTS HAVE BEEN ESTABLISHED BASED ON THE FOURTH UNIVERSAL DEFINITION OF MYOCARDIAL INFARCTION. THE UPPER REFERENCE LIMIT (URL) OF TROPONIN, DEFINED THE 99TH PERCENTILE OF cTnI DISTRIBUTION IN A REFERENCE POPULATION, HAS BEEN CONFIRMED THE DECISION THRESHOLD FOR LA DIAGNOSIS. 99TH PERCENTILE = 51.4 PG/ML NOTE: HIGH-SENSITIVITY TROPONIN ASSAY IS NOT INTENDED TO BE USED IN ISOLATION BUT SHOULD BE INTERPRETED IN CONJUNCTION WITH OTHER DIAGNOSTIC AND CLINICAL INFORMATION. Performing Lab: see note - [facility] CT abdomen pelvis w con Reviewed date:01/09/2024 01:25:50 PM Interpretation: Performing Lab: Notes/Report: Source Facility: [place] [address] CT Scan Report Signed Patient: SHANIQUE CAMARGO MR#: [id number] : 1955 Acct:[id number] Age/Sex: 68 / F ADM Date: 01/07/24 Loc: ER Attending Dr: Ordering Physician: Dana Mckeon Date of Service: 01/07/24 Procedure(s): CT abdomen pelvis w con Accession Number(s): [id number] cc: Katelyn Kaufman M.D. [address] [address] Patient Name: SHANIQUE CAMARGO MRN: [id number] date: 1955 Sex: F Assigned Patient Location: ER Current Patient Location: ED.MAIN Accession/Order Number: [id number] Exam Date: 01/07/2024 08:15 Report Date: 01/07/2024 08:58 At the request of: DANA MCKEON Procedure: CT abdomen pelvis w con EXAMINATION: CT abdomen pelvis w con HISTORY: GB surgery ; abdominal pain and nausea; cholecystectomy 3 weeks ago COMPARISON: CT abdomen pelvis 09/23/2023 TECHNIQUE: Axial, Coronal, and Sagittal images were obtained without and/or with IV contrast as indicated by examination type. Dose reduction techniques were achieved by using automated exposure control and/or adjustment of mA and/or kV according to patient size and/or use of iterative reconstruction technique. FINDINGS: LUNG BASES: No visible pulmonary or pleural disease. LIVER: No enlargement, atrophy, suspicious density, or significant focal lesion. BILIARY: Cholecystectomy. No abnormal duct dilation, free fluid, or inflammatory changes. PANCREAS: No lesion, fluid collection, or abnormal duct dilatation. SPLEEN: Innumerable calcifications within the spleen. No enlargement or focal lesion. ADRENALS: No mass or enlargement. KIDNEYS: No mass, obstruction, or calcification. BOWEL/MESENTERY: Marked diverticulosis of distal colon without acute inflammatory changes. No visible mass, obstruction, or bowel wall thickening. Normal appendix. AORTA/VASCULAR: No aneurysm or dissection. RETROPERITONEUM: No mass or adenopathy. LYMPH NODES: No adenopathy. URINARY BLADDER: No visible focal wall thickening, lesion, or calculus. PELVIC ORGANS: No visible mass. Pelvic organs appropriate for patient age. ABDOMINAL WALL: No mass or hernia. BONES: Multilevel degenerative disc disease of lumbar spine; marked at L4-5. No bony lesion or fracture. OTHER: Negative. CT/CT abdomen pelvis w con IMPRESSION: 1. No acute or suspicious abdominal findings to account for patient's symptoms. 2. Recent cholecystectomy. No acute or suspicious findings. 3. Colonic diverticulosis. Electronically authenticated by: SUHAS HOLDEN Date: 01/07/2024 08:58 Dictated By: Suhas Holden M.D. Signed By: 01/07/2401 DD/ 0858 TD/TT: Research Leader: [address] [address] [address] Scan Report Signed Patient: SUJIT CAMARGO MR#: [id number] : 1955 Acct:[id number] Age/Sex: 68 / F ADM Date: 01/07/24 Loc: ER Attending Dr: Ordering Physician: Dana Mckeon Date of Service: 01/07/24 Procedure(s): CT abd omen pelvis w con Accession Number(s): [id number] cc: Katelyn Kaufman M.D. [place] [id number] Patient Name: SHANIQUE CAMARGO MRN: [id number] date: 1955 Sex: F Assigned Patient Location: ER Current Patient Loca tion: ED.MAIN Accession/Order Numb er: [id number] Exam Date: 08:15 Report Date: 01/07/2024 08:58 At the request of: DANA MCKEON Procedure: CT abdome n pelvis w con EXAMINATION: CT abdo men pelvis w con HISTORY: GB surgery ; abdominal pain and nausea; cholecystectomy 3 weeks ago COMPARISON: CT abdom en pelvis 09/23/2023 TECHNIQUE: Axial, Coronal, and Sagittal images were obtained without and/or with IV contrast as indicated by examination type. Dose reduction techniques were achieved by usi ng automated exposure control and/or adjustment of mA and/or kV according to patient size and/or use of iterative reconstruction technique. FINDINGS: LUNG BASES: No visib le pulmonary or pleural disease. LIVER: No enlargemen t, atrophy, suspicious density, or significant focal lesion. BILIARY: Cholecystec gita. No abnormal duct dilation, free fluid, or inflammatory changes. PANCREAS: No lesion, fluid collection, or abnormal duct dilatation. SPLEEN: Innumerable calcifications within the spleen. No enlargement or focal lesion. ADRENALS: No mass or enlargement. KIDNEYS: No mass, obstruction, or calcification. BOWEL/MESENTERY: Mar ked diverticulosis of distal colon without acute inflammatory changes . No visible mass, obstruction, or bowel wall thickening. Normal appendix. AORTA/VASCULAR: No aneurysm or dissection. RETROPERITONEUM: No mass or adenopathy. LYMPH NODES: No adenopathy. URINARY BLADDER: No visible focal wall thickening, lesion, or calculus. PELVIC ORGANS: No vi sible mass. Pelvic organs appropriate for patient age. ABDOMINAL WALL: No m ass or hernia. BONES: Multilevel degenerative disc disease of lumbar spine; marked at L4-5. No bony lesion or fracture. OTHER: Negative. C T/CT abdomen pelvis w con IMPRESSION: 1. No acute or suspi cious abdominal findings to account for patient's symptoms. 2. Recent cholecystectomy. No acute or suspicious findings. 3. Colonic diverticulosis. Electronically authenticated by: SUHAS HOLDEN Date: 01/07/2024 08:58 Dictated By: Suhas Holden M.D. Signed By: 01/07/24900 DD/ TD/TT: Research Leader: US abdomen complete Reviewed date:04/16/2024 08:37:05 AM Interpretation: Performing Lab: Notes/Report: Source Facility: [place] [address] Ultrasound Report Signed Patient: SHANIQUE CAMARGO MR#: [id number] : 1955 Acct:[id number] Age/Sex: 68 / F ADM Date: 02/11/24 Loc: US Attending Dr: Katelyn Kaufman M.D. Ordering Physician: Katelyn Kaufman M.D. Date of Service: 02/11/24 Procedure(s): US abdomen complete Accession Number(s): [id number] cc: Katelyn Kaufman M.D. [place] [address] Patient Name: SHANIQUE CAMARGO MRN: [id number] date: 1955 Sex: F Assigned Patient Location: US Current Patient Location: LAB Accession/Order Number: [id number] Exam Date: 02/11/2024 07:30 Report Date: 02/11/2024 10:52 At the request of: KATELYN KAUFMAN Procedure: US abdomen complete US abdomen complete, 02/11/2024 7:30 AM EST INDICATION: Upper Abdominal Pain COMPARISON: Prior CT of the abdomen dated 01/07/2024 and ultrasound dated 12/02/2023 Findings: The proximal abdominal aorta measures 2.6 centimeter, the midportion measures 1.9 centimeter, and infrarenal abdominal aorta measures 1.8 centimeter. IVC is patent. Given the limitation of the ultrasound for evaluation of the pancreas, the visualized portion of pancreas is unremarkable. The liver is mildly heterogeneous and hyperechogenic with no definite focal lesion. The main portal vein is patent with hepatopetal portal flow. Gallbladder is partially resected. There is no ultrasound Mayfield's sign. The proximal common bile duct measures 4.4 mm. Multiple echogenic lesions within the spleen are noted likely due to prior granulomatous disease. It measures 9.3 cm in the largest axis. The kidneys are normal in size measuring 9.9 x 4.9 x 4.9 cm on the right and 8.8 x 3.7 x 4.1 cm on the left side. No hydronephrosis is noted. US/US abdomen complete IMPRESSION: No significant abnormality in the current study. No significant interval change. Electronically authenticated by: DANA MARTINEZ Date: 02/11/2024 10:52 Dictated By: Dana Martinez M.D. Signed By: 04/13/24 1228 DD/ 1052 TD/TT: Research Leader: The [address] [address] Ultrasound Report Signed Patient: SUJIT CAMARGO MR#: [id number] : 1955 Acct:[id number] Age/Sex: 68 / F ADM Date: 02/11/24 Loc: US Attending Dr: Haresh Kaufman M.D. Ordering Physician: Katelyn Kaufman M.D. Date of Service: 02/11/24 Procedure(s): US abd omen complete Accession Number(s): [id number] cc: Katelyn Kaufman M.D. [address] [address] Patient Name: SHANIQUE CAMARGO MRN: [facility]:[id number] date: 1955 Sex: F Assigned Patient Location: US Current Patient Loca tion: LAB Accession/Order Numb er: [id number] Exam Date: 07:30 Report Date: 02/11/2024 10:52 At the request of: KATELYN KAUFMAN Procedure: US abdome n complete US abdomen complete, 02/11/2024 7:30 AM EST INDICATION: Upper Abdominal Pain COMPARISON: Prior CT of the abdomen dated 01/07/2024 and ultrasound dated 12/02/2023 Findings: The proximal abdomin al aorta measures 2.6 centimeter, the midportion measures 1.9 centimeter, and infrarenal abdominal aorta measures 1.8 centimeter. IVC is patent. Given the limitation of the ultrasound for evaluation of the pancreas, the visualized portion o f pancreas is unremarkable. The liver is mildly heterogeneous and hyperechogenic with no definite focal lesion. The main por redd vein is patent with hepatopetal portal flow. Gallbladder is parti ally resected. There is no ultrasound Mayfield's sign. The proximal common bile duct measures 4.4 mm. Multiple echogenic lesions within the spleen are noted likely due to prior granulomatous diseas e. It measures 9.3 cm in the largest axis. The kidneys are norm al in size measuring 9.9 x 4.9 x 4.9 cm on the right and 8.8 x 3.7 x 4.1 cm o n the left side. No hydronephrosis is noted. U S/US abdomen complete IMPRESSION: No significant abnormality in the current study. No significant interval change. Electronically authenticated by: DANA MARTINEZ Date: 02/11/2024 10:52 Dictated By: Dixon Martinez M.D. Signed By: 04/13/24 1228 DD/ 1052 TD/TT: Research Leader: JESUS hepatobiliary wo pharm Reviewed date:03/01/2024 06:55:03 PM Interpretation: Performing Lab: Notes/Report: Source Facility: [facility] [place] [address] [place] [address] Nuclear Medicine Report Signed Patient: SHANIQUE CAMARGO MR#: [id number] : 1955 Acct:[id number] Age/Sex: 68 / F ADM Date: 03/01/24 Loc: [place] Attending Dr: Katelyn Kaufman M.D. Ordering Physician: Katelyn Kaufman M.D. Date of Service: 03/01/24 Procedure(s): NM hepatobiliary wo pharm Accession Number(s): [id number] cc: Katelyn Kaufman M.D. [place] [id number] Patient Name: SHANIQUE CAMARGO MRN: [id number] date: 1955 Sex: F Assigned Patient Location: [place] Current Patient Location: [place] Accession/Order Number: [id number] Exam Date: 03/01/2024 06:40 Report Date: 03/01/2024 09:55 At the request of: KATELYN KAUFMAN Procedure: NM hepatobiliary wo pharm EXAMINATION: [place] hepatobiliary wo pharm HISTORY: ABDOMINAL PAIN COMPARISON: No relevant comparison available. TECHNIQUE: Radionuclide hepatobiliary imaging was performed after intravenous injection of Tc-99m OSMAN derivative with sequential acquisitions every 1 minute for one hour. . FINDINGS: LIVER: Normal, prompt and uniform radiotracer uptake and clearing. BILIARY DUCTS: Normal radioisotopic biliary excretion. GALLBLADDER: Not visualized consistent with known cholecystectomy INTESTINE: Normal with no evidence of common biliary ductal obstruction. OTHER: Negative. [place] hepatobiliary wo pharm IMPRESSION: No evidence of a biliary leak Electronically authenticated by: EDMOND CAAL Date: 03/01/2024 09:55 Dictated By: Edmond Caal M.D. Signed By: 03/01/24 0958 DD/ TD/TT: Research Leader: [place] [address] Nuclear Medicine Report Signed Patient: SUJIT CAMARGO MR#: [id number] : 1955 Acct:[id number] Age/Sex: 68 / F ADM Date: 03/01/24 Loc: [place] Attending Dr: Haresh Kaufman M.D. Ordering Physician: Katelyn Kaufman M.D. Date of Service: 03/01/24 Procedure(s): NM hepatobiliary wo pharm Accession Number(s): [id number] cc: Katelyn Kaufman M.D. The [place] [address] Patient Name: SHANIQUE CAMARGO MRN: [id number] date: 1955 Sex: F Assigned Patient Location: [place] Current Patient Loca tion: [place] Accession/Order Numb er: [id number] Exam Date: 03/01/2024 06:40 Report Date: 03/01/2024 09:55 At the request of: KATELYN KAUFMAN Procedure: NM hepatobiliary wo pharm EXAMINATION: [place] hepatobiliary wo pharm HISTORY: ABDOMINAL PAIN COMPARISON: No relev ant comparison available. TECHNIQUE: Radionucl bertha hepatobiliary imaging was performed after intravenous injection of Tc-99m OSMAN derivative with sequential acquisitions every 1 minute for one hour. . FINDINGS: LIVER: Normal, promp t and uniform radiotracer uptake and clearing. BILIARY DUCTS: Bonny l radioisotopic biliary excretion. GALLBLADDER: Not visualized consistent with known cholecystectomy INTESTINE: Normal wi th no evidence of common biliary ductal obstruction. OTHER: Negative. N M/NM hepatobiliary wo pharm IMPRESSION: No evidence of a tera iary leak Electronically authenticated by: EDMOND CAAL Date: 03/01/2024 09:55 Dictated By: Humble Caal M.D. Signed By: 03/01/24957 DD/ 4 TD/TT: Research Leader: CBC AUTO DIFF Reviewed date:03/06/2024 01:15:20 PM Interpretation: Performing Lab: Notes/Report: The [facility] , White Blood Count 8.5 4.0-11.0 10 3/uL Red Blood Count 4.55 4.20-5.40 10 6/uL Hemoglobin 13.7 12.0-16.0 g/dL Hematocrit 42.5 36.0-48.0 % Mean Corpuscular Volume 93.4 81.0-99.0 fL Mean Corpuscular Hemoglobin 30.1 26.7-34.0 pg Mean Corpuscular HGB Conc 32.2 29.9-35.2 g/dL Red Cell Distribution Width 12.3 11.0-15.0 % Platelet Count 260 150-450 10 3/uL Mean Platelet Volume 10.7 9.5-13.5 fL Neutrophils Percent Auto 61.7 43.0-75.0 % Lymphocytes Percent Auto 27.6 20.5-60.0 % Monocytes Percent Auto 9.1 1.7-12.0 % Eosinophils Percent Auto 0.9 0.9-7.0 % Basophils Percent Auto 0.5 0.2-2.0 % Immature Granulocytes Pct Auto 0.2 0.0-0.5 % Neutrophils Absolute Auto 5.2 1.4-6.5 10 3/uL Lymphocytes Absolute Auto 2.3 1.2-3.8 10 3/uL Monocytes Absolute Auto 0.8 0.3-0.8 10 3/uL Eosinophils Absolute Auto 0.1 0.0-0.7 10 3/uL Basophils Absolute Auto 0.0 0.0-0.1 10 3/uL Immature Granulocytes Abs Auto 0.02 0.00-0.03 10 3/uL Performing Lab: see note ML - [facility] LB PROF 14(COMP METB) Reviewed date:03/06/2024 01:15:20 PM Interpretation: Performing Lab: Notes/Report: [facility] , Sodium 140 136-145 mmol/L Potassium 4.2 3.5-5.1 mmol/L Chloride 105 98-107 mmol/L Carbon Dioxide 29.3 21.0-32.0 mmol/L Anion Gap 9.9 Glucose 70 74-106 mg/dL Blood Urea Nitrogen 15.0 7.0-18.0 mg/dL Creatinine 0.68 0.55-1.02 mg/dL Estimated GFR ( Shireen >60 >=60 mL/min/1.73m 2 Estimated GFR (Non- Isela >60 >=60 mL/min/1.73m 2 BUN Creatinine Ratio 22.1 Calcium 9.3 8.5-10.1 mg/dL Bilirubin Total 0.2 0.2-1.0 mg/dL Aspartate Amino Transferase 17 15-37 U/L Alanine Aminotransferase 23 14-59 U/L Alkaline Phosphatase 80 46-116 U/L Total Protein 7.0 6.4-8.2 g/dL Albumin Level 3.7 3.4-5.0 g/dL Globulin 3.3 Albumin Globulin Ratio 1.1 Performing Lab: see note ML - [facility] LB Reason For Referral Diagnosis 1 Knee osteoarthritis (M17.9) Referral Organization [facility] [place] Referring Provider First Name KATELYN Referring Provider Last Name HOHuyen [facility]erred Provider Suhas Lauren Referred Provider Specialty Orthopedic S urgery Referral Priority Routine Reason when is patient due for a colonoscopy Diagnosis 1 Screening for colon cancer (Z12.11) Referral Organization [facility] Referring Provider First Name Stanton Referring Provider Last Name Shae Referring Provider [facility] doris Referred Provider Jovan Bolden Referred Provider Specialty General Surg zulema Referral Priority Routine Diagnosis 1 Epigastric abdominal pain (R10.13) Diagnosis 2 Diverticulosis (K57. 90) Referral Organization [facility] Referring Provider First Name Stanton Referring Provider Last Name Shae Referring Provider [facility] doris Referred Provider Jovan Bolden Referred Provider Specialty General Surg zulema Referral Priority Routine Diagnosis 1 GERD (gastroesophage al reflux disease) (K21.9) Referral Organization [facility] Referring Provider First Name Stanton Referring Provider Last Name Shae Referring Provider [facility] doris Referred Provider Jovan Bolden Referred Provider Specialty General Surg zulema Referral Priority Routine Diagnosis 1 Epigastric abdominal pain (R10.13) Referral Organization [facility] Referring Provider First Name Stanton Referring Provider Last Name Shae [facility] Referred Provider Kamron Hayden Referred Provider Specialty Surgery Referral Priority Routine Diagnosis 1 Upper abdominal pain (R10.10) Referral Organization [facility] Referring Provider First Name Stanton Referring Provider Last Name Shae Referring Provider [facility] doris Referred Provider Jovan Bolden Referred Provider Specialty General Surg zulema Referral Priority Routine Diagnosis 1 Abdominal pain (R10. 9) Diagnosis 2 GERD (gastroesophage al reflux disease) (K21.9) Diagnosis 3 Abnormal gall bladde r diagnostic imaging (R93.2) Referral Organization [facility] Referring Provider First Name Stanton Referring Provider Last Name Shae [facility] Referred Provider Josseline Diggs Referred Provider Specialty Gastroentero logy Referral Priority Routine Diagnosis 1 Intestinal angina (K 55.1) Referral Organization [facility] Referring Provider First Name Stanton Referring Provider Last Name Shae [facility]erring [facility] Referred Provider Specialty Gastroentero logy Referral Priority Routine Diagnosis 1 Bile duct leak (K83. 8) Referral Organization [facility] Referring Provider First Name Stanton Referring Provider Last Name Shae Referring Provider [facility] doris Referred Provider Fawad Mcintosh Referred Provider Specialty Gastroentero logy Referral Priority Routine Medications Medication SIG (Take, Route, Frequency, Duration) [...] Question Answer Notes Patient is a nonsmoker Alcohol Screen (Audit-C) Question Answer Notes Did you have a drink containing alcohol in the p ast year? No Points 0 Interpretation Negative AUDIT-C (Standard) Question Answer Notes Did you have a drink containing alcohol in the p ast year? No Points 0 Interpretation Negative Problems Problem Type SNOMED Code ICD Code Onset Dates Problem Status W/U Status Risk Notes Problem [id number] Age-related osteoporosis without current pathological fracture (M81.0) Active confirmed Problem Abdominal pain (64741915) Abdominal pain (R10.9) Active confirmed Problem Gastroesophageal reflux disease (585318238) GERD (gastroesophageal reflux disease) (K21.9) Active confirmed Problem Epigastric pain (18223136) Epigastric abdominal pain (R10.13) Active confirmed Problem Osteoarthritis of knee (170964800) Knee osteoarthritis (M17.9) Active confirmed Problem Diverticular disease of colon (999963633) Diverticulosis (K57.90) Active confirmed Problem Acute sinusitis (32302497) Acute sinusitis (J01.90) Active confirmed Problem Acute bronchitis (87739275) Acute bronchitis (J20.9) Active confirmed Problem Sciatica (58425276) Sciatic leg pain (M54.30) Active confirmed Problem Tubular adenoma (665041535) Tubular adenoma (D36.9) Active confirmed Problem Upper abdominal pain (70075385) Upper abdominal pain (R10.10) Active confirmed Problem Intestinal angina (705702628) Intestinal angina (K55.1) Active confirmed Problem Bile duct leakage (disorder) (704810856) Bile duct leak (K83.8) Active confirmed Problem Osteoarthritis of knee (228243920) Knee osteoarthritis (M17.10) Active confirmed Vital Signs Temperature 98.2 degrees Fahrenheit 06/02/2024 Blood pressure diastolic 80 mm Hg 07/24/2024 Height 61 in 07/24/2024 Blood pressure systolic 118 mm Hg 07/24/2024 Weight 154.2 lbs 07/24/2024 BMI 29.13 kg/m2 07/24/2024 Procedures Procedure Date Ordered Date Performed Result Body Sit e Colonoscopy 03/29/2024 Normal Encounters Encounter Location Date Provider Diagnosis [facility] [address] [place] [address] 08/02/2023 KATELYN HOY Knee osteoarthritis M17.9 [facility] [address] [place] [address] 09/09/2023 Stanton Hoy Epigastric abdominal pain R10.13 [facility] [address] [place] [address] 09/21/2023 Stanton Hoy Gastroenteritis K52. 9 and Abdominal pain R10.9 [facility] [address] [place] [address] 10/11/2023 Stanton Hoy Gastroenteritis K52. 9 [facility] [address] [place] [address] 10/29/2023 Stanton Hoy GERD (gastroesophage al reflux disease) K21.9 [facility] [address] [place] [address] 11/26/2023 Stanton Hoy Abdominal pain R10.9 [facility] [address] [place] [address] 01/10/2024 Stanton Hoy Upper abdominal pain R10.10 [facility] [address] [place] [address] 01/19/2024 Stanton Hoy Knee osteoarthritis M17.10 and Knee pain, left M25.562 [place] [address] [place] [place] [address] 02/07/2024 Stanton Hoy Gastroenteritis K52. 9 [facility] [address] [place] [address] 08/03/2023 KATELYN HOY Knee osteoarthritis M17.9 [facility] [address] [place] [place] [place] [address] 09/10/2023 Stanton Hoy Unspecified abdomina l pain R10.9 [facility] [address] [place] [address] 09/17/2023 Stanton Hoy Epigastric abdominal pain R10.13 and Unspecified abdominal pain R10.9 [facility] [address] [place] [place] [address] 09/19/2023 Stanton Hoy [facility] [address] [place] [address] 09/21/2023 Stanton Hoy Screening for colon cancer Z12.11 [facility] [address] [place] [place] [address] 09/21/2023 Stanton Hoy [facility] [address] [place] [place] [address] 09/21/2023 Stanton Hoy Encounter for diagno stic endoscopy Z01.818 [facility] [address] [place] [place] [address] 02/28/2024 Stanton Hoy Abdominal pain R10.9 [facility] [address] [place] [place] [address] 03/06/2024 Stanton Hoy Epigastric abdominal pain R10.13 [facility] [address] [place] [address] 04/05/2024 Stanton Hoy Acute non-recurrent sinusitis, unspecified location J01.90 and Nasal congestion R09.81 [facility] [address] [place] [place] [address] 04/20/2024 Stanton Hoy GERD (gastroesophage al reflux disease) K21.9 and Intestinal angina K55.1 [facility] [address] [place] [place] [address] 06/02/2024 Stanton Hoy Burning with urinati on R30.0 ; UTI (urinary tract infection), uncomplicated N39.0 and Dysuria R30.0 [facility] [address] [place] [place] [address] 06/14/2024 Stanton Hoy UTI (urinary tract infection) N39.0 [facility] [address] [place] [address] 07/24/2024 Stanton Hoy Shoulder impingement M25.819 and Impingement of right shoulder M25.811 [facility] [address] [place] [place] [address] 09/24/2023 Stanton Hoy [facility] [address] [place] [address] 09/28/2023 Stanton Hoy Epigastric abdominal pain R10.13 [facility] [address] [place] [address] 10/12/2023 Stanton Hoy [facility] [address] [place] [address] 10/14/2023 Stanton Hoy [facility] [address] [place] [address] 10/17/2023 Stanton Hoy [facility] [address] [place] [address] 10/31/2023 Stanton Hoy [facility] [address] [place] [address] 11/01/2023 Stanton Hoy GERD (gastroesophage al reflux disease) K21.9 [facility] [address] [place] [address] 11/09/2023 Stanton Hoy [facility] [address] [place] [address] 12/02/2023 Stanton Hoy Epigastric abdominal pain R10.13 and Abnormal gall bladder diagnostic imaging R93.2 [facility] [address] [place] [address] 12/15/2023 Stanton Shae [facility] [address] [facility] [place] [address] 02/02/2024 Stanton Hoy Upper abdominal pain R10.10 [facility] [address] [facility] [place] [address] 02/10/2024 Stanton y [facility] [address] [facility] [place] [place] [address] 02/11/2024 Stanton Hoy Upper abdominal pain R10.10 [facility] [address] [facility] [place] [place] [address] 02/14/2024 Stanton Hoy Abdominal pain R10.9 and GERD (gastroesophageal reflux disease) K21.9 [facility] [address] [facility] [place] [address] 02/28/2024 Stanton huyen [facility] [address] [facility] [place] [place] [address] 03/01/2024 Stanton Kaufman [facility] [address] [facility] [place] [place] [address] 03/01/2024 Stanton huyen [facility] [address] [facility] [place] [place] [address] 03/03/2024 [facility] [address] [facility] [place] [place] [address] 03/06/2024 Stanton Kaufman [facility] [address] [facility] [address] 03/10/2024 Stanton Kaufman [facility] [address] [facility] [place] [place] [address] 04/16/2024 Stanton huyen [facility] [address] [facility] [place] [place] [address] 04/20/2024 Stanton Hoy Intestinal angina K5 5.1 ; Upper abdominal pain R10.10 and Bile duct leak K83.8 [facility] [address] [facility] [place] [address] 04/26/2024 Stanton Delgadoy [facility] [address] [place] [address] 06/14/2024 Stanton Kaufman Assessments Encounter Date Diagnosis (ICD Code) Assessment Notes Treatment Notes Treatment Clinical Notes Section Notes 06/02/2024 Burning with urination (ICD-10 - R30.0) 04/05/2024 Acute non-recurrent sinusitis, unspecified location (ICD-10 - J01.90) Rest and drink more liquids, especially water. You may use a humidifier or vaporizer to help keep the drainage moist. Yfzq-avx-paocucl Nasal Saline may help the stuffy and runny nose. Use Ibuprofen and or Tylenol as needed for fever, chills, body aches or pain. Children 5 years old should not be given zzpa-kvn-nlbnypi cough and cold medications such as guaifenesin and dextromethorphan. If you're over age 5, you may try ishz-ivg-kofyjuo cold medications such as guaifenesin and dextromethorphan, or multi-symptom cold reliever such as Dayquil to help reduce the symptoms. Antibiotics have been prescribed. You should take these until completed and follow the directions. Antibiotics can sometimes cause upset stomach, and in rare cases, serious allergic reactions or serious gastrointestinal problems. If you start having severe abdominal pain, severe vomiting, or bloody diarrhea, you should be reevaluated by your physician or urgent care immediately. Follow up with your Primary Care Provider or return to clinic if symptoms do not improve within 3-5 days 04/20/2024 GERD (gastroesophageal reflux disease) (ICD-10 - K21.9) 04/20/2024 Intestinal angina (ICD-10 - K55.1) 08/02/2023 Knee osteoarthritis (ICD-10 - M17.9) 09/09/2023 Epigastric abdominal pain (ICD-10 - R10.13) 09/21/2023 Abdominal pain (ICD-10 - R10.9) 09/21/2023 Gastroenteritis (ICD-10 - K52.9) Get plenty of rest. Stay hydrated by sucking on ice chips or taking small sips of water. You can also try drinking clear soda, clear broths or noncaffeinated sports drinks. Stop eating solid foods for a few hours to let your stomach settle. East back into eating by eating bland, kggo-hb-vgpfsu foods like crackers, toast, gelatin, bananas, rice and chicken. Try to avoid foods/substances including dairy products, caffeine, alcohol, nicotine and fatty or highly seasoned foods. Medications such as ibuprofen or tylenol can make your stomach more upset, so use sparingly if at all. Also avoid hlac-bnf-dvlbwds anti-diarrheal medications because it can make it harder for your body to eliminate the virus. 10/11/2023 Gastroenteritis (ICD-10 - K52.9) Get plenty of rest. Stay hydrated by sucking on ice chips or taking small sips of water. You can also try drinking clear soda, clear broths or noncaffeinated sports drinks. Stop eating solid foods for a few hours to let your stomach settle. East back into eating by eating bland, rvne-po-vbghab foods like crackers, toast, gelatin, bananas, rice and chicken. Try to avoid foods/substances including dairy products, caffeine, alcohol, nicotine and fatty or highly seasoned foods. Medications such as ibuprofen or tylenol can make your stomach more upset, so use sparingly if at all. Also avoid kldk-awk-pekueou anti-diarrheal medications because it can make it harder for your body to eliminate the virus. 10/29/2023 GERD (gastroesophageal reflux disease) (ICD-10 - K21.9) 11/26/2023 Abdominal pain (ICD-10 - R10.9) 01/10/2024 Upper abdominal pain (ICD-10 - R10.10) 01/19/2024 Knee pain, left (ICD-10 - M25.562) 01/19/2024 Knee osteoarthritis (ICD-10 - M17.10) 02/07/2024 Gastroenteritis (ICD-10 - K52.9) Get plenty of rest. Stay hydrated by sucking on ice chips or taking small sips of water. You can also try drinking clear soda, clear broths or noncaffeinated sports drinks. Stop eating solid foods for a few hours to let your stomach settle. East back into eating by eating bland, zqey-cz-xyolyj foods like crackers, toast, gelatin, bananas, rice and chicken. Try to avoid foods/substances including dairy products, caffeine, alcohol, nicotine and fatty or highly seasoned foods. Medications such as ibuprofen or tylenol can make your stomach more upset, so use sparingly if at all. Also avoid lhrz-yqm-rhpkpqz anti-diarrheal medications because it can make it harder for your body to eliminate the virus. 02/28/2024 Abdominal pain (ICD-10 - R10.9) 03/06/2024 Epigastric abdominal pain (ICD-10 - R10.13) 06/14/2024 UTI (urinary tract infection) (ICD-10 - N39.0) 07/24/2024 Impingement of right shoulder (ICD-10 - M25.811) 07/24/2024 Shoulder impingement (ICD-10 - M25.819) 08/03/2023 Knee osteoarthritis (ICD-10 - M17.9) 09/10/2023 Unspecified abdominal pain (ICD-10 - R10.9) 09/17/2023 Unspecified abdominal pain (ICD-10 - R10.9) 09/17/2023 Epigastric abdominal pain (ICD-10 - R10.13) 09/21/2023 Screening for colon cancer (ICD-10 - Z12.11) 09/21/2023 Encounter for diagnostic endoscopy (ICD-10 - Z01.818) 09/28/2023 Epigastric abdominal pain (ICD-10 - R10.13) 11/01/2023 GERD (gastroesophageal reflux disease) (ICD-10 - K21.9) 12/02/2023 Epigastric abdominal pain (ICD-10 - R10.13) 12/02/2023 Abnormal gall bladder diagnostic imaging (ICD-10 - R93.2) 02/02/2024 Upper abdominal pain (ICD-10 - R10.10) 02/11/2024 Upper abdominal pain (ICD-10 - R10.10) 02/14/2024 Abdominal pain (ICD-10 - R10.9) 02/14/2024 GERD (gastroesophageal reflux disease) (ICD-10 - K21.9) 04/20/2024 Upper abdominal pain (ICD-10 - R10.10) 04/20/2024 Intestinal angina (ICD-10 - K55.1) 04/20/2024 Bile duct leak (ICD-10 - K83.8) 04/05/2024 Nasal congestion (ICD-10 - R09.81) 06/02/2024 UTI (urinary tract infection), uncomplicated (ICD-10 - N39.0) Drink plenty of water. Avoid drinks like coffee, alcohol and soft frinks, as these can irritate your bladder and aggravate your frequent or urgent need to urinate. Apply a warm heating pad to your abdomen to minimize bladder pressure or discomfort. You have been prescribed antibiotics for a urinary tract infection. Antibiotics may bother your stomach, so try taking them with a light meal (unless instructed otherwise by your pharmacist). It is important to take them until they are finished. You can use bojl-bfy-ioywsqi acetaminophen or ibuprofen if needed for pain. You should follow up with your Primary Care Physician or return to clinic if not improving in the next 3-5 days. 06/02/2024 Dysuria (ICD-10 - R30.0) Plan Of Treatment Pending Test Test Name Order Date CMP (COMPLETE METABOLIC PANEL) 3 CULTURE, STOOL 10/11/2023 HEMOGLOBIN A1C (GLYCO) 09/18/2022 IRON, TOTAL 09/18/2022 LIPID PANEL (CHOL/TRIG/HDL/LDL) 09/19/19 23 CBC WITH DIFF 09/18/2022 CBC WITH DIFF 03/06/2024 XR Chest PA and Lateral (Routine CXR) * 01/28/2023 MAMM Mammograms CAD 09/18/2022 N[facility] with Ejection Fraction * UA DIP NONAUTO WO MICRO (58667) - IN OFF ICE 06/02/2024 C DIFF TOX PCR STOOL 10/11/2023 VIT B12 AND FOLATE 06/23/2023 CT ABD and PELV W CON 09/21/2023 US ABD 02/02/2024 US ABD 11/26/2023 XR DEXA BONE DENSITY 06/02/2023 XR SHOULDER RT 2V or > 07/24/2024 THYROID PANEL (T4/TSH/FREE T3) 3 Vitamin D, 25-Hydroxy 06/23/2023 N[facility] with Ejection Fraction * CMP (COMP MET MARTINEZ) w/eGFR CKD-EPI 2024 Insurance Providers Payer Name Payer Address Payer Phone Subscriber Number Group Number Insured Name Patient Relationship to Insured Coverage Start Date Coverage End Date [facility] [employer] [address] [address] [place] [address] [id number] Shanique Camargo Self - patient is the insured 4 Medical (General) History Medical History History ICD Code Arthritis M19.90 Inguinal hernia K40.90 Diverticular disease K57.90 Surgical History Surgery Date(Month/Year) Carpal Tunnel 2001 Tonsillectomy 1964 EGD 05/10/24 Colonoscopy, polyp x3- Dr Diggs gallbladder removed 12/13/23 EGD 11/24/2023 Hernia Repair Left Knee Surgery 01/12/16 Right Knee Surgery 11/12/15 Hysterectomy 1989
--- OUTSIDE RECORDS SUMMARY | 2024-07-25 16:39 | XMS_ITS | Clinical Summary ---
Author Organization [facility] Address [address] [place] [address] Care Team Providers Care Chin Strap Maker Name Role Phone Merrill Kaufman MD Primary Care Provider [phone] Allergies Active Allergy Reactions Criticality Noted Date Comments Levofloxacin Other 12/06/2023 Nsaids GI intolerance 12/06/2023 Sucralfate GI intolerance 12/06/2023 Medications hyoscyamine (Anaspaz) 0.[address] 0.125 mg under the tongue every 4 (four) hours if needed Active pantoprazole (ProtoNix) 40 MG EC tablet Take 40 mg by mouth Daily Active ondansetron ODT (Zofran-ODT) 4 MG disintegrating tablet Take 4 mg by mouth every 8 (eight) hours if needed for nausea Active Social History Tobacco Use Types Packs/Day Years Used Date Smoking Tobacco: Never Assessed Comments Unknown Sex and Gender Information Value Date Recorded Sex Assigned at Not on file Legal Sex Female 6:57 PM EDT Gender Identity Not on file Sexual Orientation Not on file Last Filed Vital Signs Vital Sign Reading Time Taken Comments Blood Pressure 118/74 12/27/2023 12:51 PM EST Pulse 83 12/27/2023 12:51 PM EST Temperature - - Respiratory Rate 12 12/27/2023 12:51 PM EST Oxygen Saturation 96% 12/27/2023 12:51 PM EST Inhaled Oxygen Concentration - - Weight 68.5 kg (151 lb) 12/27/2023 12:51 PM EST Height 157.5 cm (5' 2 ) 12/27/2023 12:51 PM EST Body Mass Index 27.62 12/27/2023 12:51 PM EST Plan of Treatment Health Maintenance Due Date Last Done Comments CT Colonography 1955 Colonoscopy 1955 Colorectal Cancer Screening 1955 FIT-DNA 1955 FIT 1955 FOBT 1955 Sigmoidoscopy 1955 Pneumococcal Vaccine: 65+ Years (1 of 1 - PCV) 004 Mammogram 09/23/2017 09/23/2016 Influenza Vaccine (Season Ended) 2024 01/08/20 18 Insurance [employer] MED[employer]ARE Care Teams Chin Strap Maker Relationship Specialty Start Date End Date Merrill Kaufman MD PCP - General Family Medicine 12/06/23
--- OUTSIDE RECORDS SUMMARY | 2024-07-25 16:39 | XMS_ITS | Patient Health Record ---
Author Organization [facility] Address [address] [place] [address] Care Team Providers Care Snow Fence Erector Name Role Phone Merrill Kaufman Primary Care Provider Jas Correa Unavailable [phone] Reason For Referral No Information Problems Problem Type SNOMED Code ICD Code Onset Dates Problem Status W/U Status Risk Notes Problem Sciatica (M54.30) Active confirmed Problem History of left knee replacement (505346298280001 4) History of left knee replacement (Z96.652) Active confirmed Encounters Encounter Location Date Provider Diagnosis [facility] Office [address] [place] [address] [address] [place] [address] 08/16/2023 Jas Kelly History of left knee [...] we will have her go back to [place] for consultation. Follow-up in 2 months Left painful unicompartmental total knee arthroplasty Plan Of Treatment Pending Test Test Name Order Date PT/OT - Eval and Treat 08/16/2023 Insurance Providers Payer Name Payer Address Payer Phone Subscriber Number Group Number Insured Name Patient Relationship to Insured Coverage Start Date Coverage End Date [facility] MEDIC[facility] [address] [address] [place] [address] [id number] Self - patient is the insured
--- NOTE | 2024-07-25 17:00 | XR_ITS ---
[address] [address] Patient Name: MARY JO ROBLES MRN: [id number] date: 1955 Sex: F Assigned Patient Location: [facility] Current Patient Location: [facility] Accession/Order Number: [id number] Exam Date: 07/25/2024 17:31 Report Date: 07/25/2024 17:31 At the request of: KATELYN YOON MD Procedure: XR shoulder RT min 2V 3 views right shoulder plain film HISTORY: Acute right shoulder pain COMPARISON: None ACUTE FINDINGS: None DEGENERATIVE CHANGE: Unremarkable SOFT TISSUE FINDINGS: Unremarkable JOINT EFFUSION: None POSTOP CHANGES: None BONY MINERALIZATION: Adequate XR/XR shoulder RT min 2V IMPRESSION: No acute findings. Impression dictated by: Terrence Dhillon M.D. 07/25/2024 5:31 PM Dictation Location: [place] [address] Electronically authenticated by: [id number] Y Date: 07/25/2024 17:31
== END 2024-07-25 16:34 | disposition home or self-care (01) ==
LOC: RAD 16:36
PROVIDERS: PCP Family Medicine; Visit Provider Family Medicine
DX: M25.811 Other specified joint disorders, right shoulder (principal)
CPT/HCPCS: 73030

== ENCOUNTER 2024-08-10 07:22 | Emergency (ER) | payer MEDICARE, SELFPAY ==
[2024-08-10 07:26] VITALS: BP 137/89; PULSE 68; TEMP 36.7; O2SAT 100; BMI 26.6
--- OUTSIDE RECORDS SUMMARY | 2024-08-10 07:28 | XMS_ITS | CCD ---
Author Organization [facility] Care Team Providers Care [place]vel [place] Operator Name Role Phone ALEJANDRO, DR ALLEY Beasley [...] DR EDMOND Humphries Consulting Unavailable MD Katelyn Yoon Primary Care Provider [phone] Jas Kelly Attending Provider [phone] Katelyn Yoon Primary Care Physician Katelyn Yoon MD Primary Care Provider [phone] Jatin Arvizu Attending Provider Jatin Arvizu Admitting Unavailable Jatin Arvizu Attending Unavailable Jas Kelly Admitting Unavailable Jas Kelly Attending Unavailable Katelyn Yoon Primary Care Unavailable JATIN ARVIZU Attending Unavailable KATELYN YOON Referring Unavailable JATIN ARVIZU Attending Unavailable Satinder Gamino Attending Unavaila Josseline Cutler Attending Unavailable Josseline Diggs Attending Unavailable Hayes PEÑA Attending Unavailable Katelyn Yoon Referring Unavailable Hayes PEÑA Attending Unavailable Dontae Mohamad A. Admitting Unavailable Jaycob Diggsamaclive A. Attending Unavailable Jaycob Diggsamaclive AArpita Referring Unavailable KATELYN YOON Referring Unavailable FAWAD PACHECO Attending Unavailable FAWAD PACHECO Admitting Unavailable Allergies Allergy Classification Reported Allergen(s) Allergy Type Date of Onset Reaction(s) Facility (11 sources) levoFLOXacin; Translations: [levofloxacin] Drug Allergy 4 Muscle pain (finding), Other [facility] [place] (9 sources) Non-steroidal anti-inflammato ry agent; Translations: [NSAIDs] Propensity to adverse reactions 4 GI intolerance [facility] (7 sources) Sucralfate; Translations: [sucralfate] Drug Allergy 4 GI intolerance [facility] (5 sources) Dicyclomine; Translations: [dicyclomine] Drug Allergy 5 Abdominal pain (finding) [facility] (5 sources) Famotidine; Translations: [famotidine] Drug Allergy 5 Abdominal pain (finding) [facility] (5 sources) Hyoscyamine; Translations: [L-hyoscyamine] Drug Allergy 5 Abdominal pain (finding) [facility] (4 sources) Metoclopramide; Translations: [metoclopramide ] Drug Allergy Dyssomnia (disorder), Chest pain (finding) [facility] (3 sources) Sucralfate; Translations: [sucralfate] Drug Allergy 4 Constipation (disorder) [facility] (1 source) Metoclopramide; Translations: [METOCLOPRAMIDE HCL] Drug Allergy 5 [facility] (1 source) NSAIDs; Translations: [NSAIDS (NON-STEROIDAL ANTI-INFLAMMATO RY DRUG)] Propensity to adverse reactions to drug (disorder) 4 [facility] Medications Current Medications Medication Drug Class(es) Dates Sig (Normalized) Sig (Original) cefdinir (1 source) Cephalosporin Antibacterial Start: 04-12-2024 cefdinir See Instructions, unsure of dosage, takes 1 by mouth BID Oral, Refills(s) 0 Start Date: 04/12/24 Status: Ordered dexlansoprazole 30 mg delayed release oral capsule (2 sources) Proton Pump Inhibitor Start: 03-22-2024 take 1 capsule by mouth once daily Dexilant 30 mg oral delayed release capsule 30 mg = 1 cap(s), Oral, Daily, # 30 cap(s), Refills(s) 0, Pharmacy: [facility], 157.4, cm, 03/22/24 12:37:00 EST, Height/Length Dosing, 70.1, kg, 03/22/24 12:37:00 EST, Weight Dosing Start Date: 03/22/24 Status: Ordered hyoscyamine sulfate 0.125 mg oral tablet (8 sources) Start: 03-22-2024 take 1 tablet by mouth every four hours hyoscyamine 0.125 mg oral Tab = 1 tab(s), Oral, q4hr, Refills(s) 0 Start Date: 03/22/24 Status: Ordered Start: 11-29-2023 take 1 tablet under the [...] Ordered ondansetron 4 mg disintegrating oral tablet (8 sources) Serotonin-3 Receptor Antagonist Start: 11-03-2023 take [...] pantoprazole 40 mg delayed release oral tablet (9 sources) Proton Pump Inhibitor Start: 03-22-2024 Protonix 40 mg Tab-D R = 1 tab(s), Oral, Daily, Refills(s) 0, Control of stomach acid Start Date: 03/22/24 Status: Ordered Start: 11-03-2023 take 1 tablet by irving th once daily Protonix 40 mg Tab-DR 40 mg = 1 tab(s), Oral, Daily, Refills(s) 0 Start Date: 11/03/23 Status: Ordered Miralax (1 source) Osmotic Laxative Start: 04-12-2024 MiraLax 1 pac ket(s), Oral, Daily, Refill(s) 0 Start Date: 04/12/24 Status: Ordered Problems Active Problems Problem Classification Problem Date Documented Da te Episodic/Chronic Abdominal pain (20 sources) Left lower quadrant pain; Translations: [Periumbilical pain] Onset: 1 Episodic Biliary tract disease (2 sources) Disease of biliary tract, unspecified; Translations: [Disease of biliary tract, unspecified] Onset: 5 Chronic Biliary tract disease (2 sources) Biliary dyskinesia; Translations: [Other specified diseases of gallbladder] 12-06-2023 Episodic Diverticulosis and diverticulitis (4 sources) Diverticulosis of sigmoid colon 04-26-2019 Chronic Esophageal disorders (7 sources) Gastroesophageal reflux disease without esophagitis; Translations: [Gastro-esophageal reflux disease without esophagitis] Onset: 4 Chronic Gastrointestinal hemorrhage (5 sources) Hemorrhage of rectum and anus; Translations: [Hemorrhage of anus and rectum] Onset: 5 Episodic Osteoporosis (4 sources) Osteoporosis 11-03-2023 Chronic Other and unspecified benign neoplasm (4 sources) Lipoma of skin 07-15-2020 Episodic Other gastrointestinal disorders (5 sources) Irritable bowel syndrome characterized by constipation; Translations: [Irritable bowel syndrome with constipation] Onset: 5 Chronic Other gastrointestinal disorders (5 sources) Burping; Translations: [Eructation] Onset: 5 Episodic Other gastrointestinal disorders (2 sources) Digestive system finding; Translations: [Other specified symptoms and signs involving the digestive system and abdomen] Onset: 5 Episodic Other gastrointestinal disorders (3 sources) Defecation straining 03-22-2024 Episodic Other nutritional; endocrine; and metabolic disorders (1 source) Obesity, unspecified; Translations: [OBESITY UNSPECIFIED] Onset: 1 Chronic Other nutritional; endocrine; and metabolic disorders (1 source) Body mass index (BMI) 31.0-31.9, adult; Translations: [BODY MASS INDEX BMI 31.0-31.9 ADULT] Onset: 1 Chronic Other nutritional; endocrine; and metabolic disorders (4 sources) Overweight 11-16-2023 Episodic Other nutritional; endocrine; and metabolic disorders (4 sources) Overweight in adulthood with body mass index of 25 or more but less than 30 11-16-2023 Episodic Other screening for suspected conditions (not mental disorders or infectious disease) (4 sources) Encounter for screening mammogram for malignant neoplasm of breast; Translations: [ENC SCR MAMMO MALIG NEOPLASM BREAST] Onset: 2 Episodic Peripheral and visceral atherosclerosis (2 sources) Chronic vascular disorders of intestine; Translations: [Chronic vascular disorders of intestine] Onset: 5 Chronic Residual codes; unclassified (1 source) Family history of malignant neoplasm of digestive organs; Translations: [FAM HX MALIG NEOPLASM DIGESTIV ORGN] Onset: 2 Episodic Residual codes; unclassified (2 sources) Family history of malignant neoplasm of digestive organ; Translations: [Family history of malignant neoplasm of digestive organs] Onset: 5 Episodic Residual codes; unclassified (1 source) FH: Gastrointestinal disease; Translations: [Family history of other diseases of the digestive system] Onset: 5 Episodic Residual codes; unclassified (2 sources) Acquired absence of organ; Translations: [Acquired absence of other specified parts of digestive tract] Onset: 5 Episodic Residual codes; unclassified (3 sources) Family history of cancer of colon 03-21-2024 Episodic Unclassified (1 source) PERSONAL HISTORY OF COVID-19; Translations: [PERSONAL HISTORY OF COVID-19] Onset: 1 Unclassified (1 source) CONTACT W/AND (SUSP) EXPOS COVID-19; Translations: [CONTACT W/AND (SUSP) EXPOS COVID-19] Onset: 1 Unclassified (4 sources) Irreducible left inguinal hernia 08-04-2020 Unclassified (4 sources) Left femoral hernia 09-14-2020 Urinary tract infections (4 sources) Acute cystitis 11-03-2023 Episodic Past or Other [...] forearm, initial encounter] Onset: 07-16-2020 Episodic Unclassified (4 sources) Patient encounter status 11-03-2023 Unclassified (4 sources) Severe acute respiratory syndrome coronavirus 2 detected 11-03-2023 Unclassified (3 sources) Family history of cholecystectomy 03-22-2024 Results Test Name Value Interpretation Reference Range Facility HISTOLOGY - TISSUE EXAMon LAB AP ASR DISCLAIMER The interpretation of [...] the Clinical Laboratory Improvement Amendments of 1998. [facility] Comment on above: Performed By: #### L [id number] #### [facility] ([facility]) [address] [place] [address] LAB AP CASE REPORT Normal [facility] Comment on above: Result Comment: Surg ical Pathology Case: [id number] Authorizing Provider: Fawad Pacheco MD Collected: 05/10/2024826 Ordering Location: [facility] Received: 05/10/2024 Formerly [facility] Endoscopy Pathologist: Elena Oakley MD Specimens: A) - Small Intestine, Duodenum, r/o duodenal B) - Gastric, r/o h. pylori Performed By: #### L [id number] #### [facility] ([facility]) [address] [place] [address] LAB AP CLINICAL INFORMATION Order Diagnoses [facility] Comment on above: Result Comment: K83. 9 - Bile leak [ICD-10-CM] R10.11 - RUQ abdominal pain [ICD-10-CM] K55.1 - Intestinal angina [ICD-10-CM] Performed By: #### L [id number] #### [facility] ([facility]) [address] [place] [address] LAB AP GROSS DESCRIPTION [facility] Comment on above: Result Comment: A. S mall Intestine, Duodenum. The specimen is received in formalin labeled Shanique Canter and duodenum tissue. It consists of 6 pieces of her-pink irregular mucosal tissue ranging from 0.2 cm to 0.4 cm in greatest dimension. The specimen is submitted in toto in 1 cassette. Candis Mckenna, Pathologists' Office Clerk student Abdirahman Chambers, Pathologists' Office Clerk B. Gastric. The specimen is received in formalin labeled Shanique Fletcherer and gastric tissue. It consists of 7 pieces of her-pink irregular mucosal tissue ranging from 0.2 cm to 0.5 cm in greatest dimension. The specimen is submitted in toto in 1 cassette. Candis Mckenna, Pathologists' Office Clerk student Abdirahman Chambers, Pathologists' Office Clerk Performed By: #### L [id number] #### [facility] ([facility]) [address] [place] [address] LAB AP MICROSCOPIC DESCRIPTION Microscopic examination performed. [facility] Comment on above: Performed By: #### L [id number] #### [facility] ([facility]) [address] [place] [address] LAB AP REPORT FINAL DIAGNOSIS NARRATIVE [facility] Comment on above: Result Comment: A. S mall bowel, duodenum, biopsy: - Duodenal mucosa with features suggestive of peptic injury. - No features of celiac disease noted. B. Stomach, biopsy: - Chronic gastritis with reactive changes. - Immunostain for Helicobacter pylori is negative. - No evidence of intestinal metaplasia or dysplasia. Performed By: #### L [id number] #### [facility] ([facility]) [address] [place] [address] HPon 05-10-2024 HP History Of Present Anali Camargo is a 68 y.o. female presenting [...] endoscopic ultrasound to assess the pancreaticobiliary system. Past Medical History She has a past medical [...] endoscopic ultrasound to assess the pancreaticobiliary system. Normal [facility] POCT GLUCOSE METER UNSOLICIT ED RESULTSon 05-10-2024 Glucose [Mass/Vol] 101 mg/dL Normal 70-105 Sherlyn hassan [facility] Comment on above: Order Comment: Waive d Testing in the ED is performed under the ED CLIA certificate #[id number]. Result Comment: asor ia3 Performed By: #### L [id number] #### [facility] ([facility]) [address] [place] [address] Prep for Procedureon 025 Prep for Procedure [id number] ChanceautumnJazzy ryanna 1955 F Date Provider Department Center 05/01/2024 [facility] No family history on file Normal [facility] Ambulatory Visit Summaryon 0 04-12-2024 Ambulatory Visit Summary Ambulatory Visit Summary MARGARET SHANIQUE Miller :1955 Visit Date:04/12/2024 Ambulatory Visit Instructions Your Diagnosis Abdominal pain GERD (gastroesophageal reflux disease) Family history of colon cancer Irritable bowel syndrome with constipation Belching Straining during bowel movements Bleeding per rectum S/P cholecystectomy Your Care Team Attending Physician - Josseline Diggs MD Primary Care Physician - Katelyn Yoon MD This Is Your Medications List Contact [...] you for choosing us for your care. Josh Luz [facility] Gastroenterology Office/Clin ic Noteon 04-12-2024 Gastroenterology Office/Clinic Note Gastroenterology Office/Clinic Note Chief Complaint follow up to colonoscopy [...] Daily, # 30 cap(s), Refills(s) 0, Pharmacy: [facility], 157.4, cm, 03/22/24 12:37:00 EST, Height/Length [...] COLON, POLYPECTOMY: ??? TUBULAR ADENOMA. EGD w/ Dr Peña 11/24/23 Normal EGD. NM hepatobiliary wo pharm [...] Platelet Volume: 10.7 Neutrophils Percent Auto: 61.7 (more content not included)... Normal [facility] Comment on above: Result Comment: Elec tronically Signed By: Dontae DA SILVA, Josseline Lorenzo\.br\Date and Time Signed: 04/12/24 13:50 EST Reminderson 04-11-2024 Reminders Reminders From: Juliet Vang MA To: [facility] - Reminders/Recalls; Sent: 04/11/2024 10:38:54 EST Show up: 02/22/2027 10:38:00 EST Subject: Ambulatory Reminder Due Date/Time: 03/29/2027 10:38:00 EST Reminder/Recall Colon recall [address] Diggs 03/29/24 Normal [facility] Surgical Pathology Reporton 04-03-2024 Surgical Pathology Report [facility] [address] [place] [address]- Surgical Pathology Report Collected Date/Time: 03/29/2024 10:22 [...] Entire specimen submitted in one cassette. () [facility] Microscopic Description Microscopic examination performed unless gross only specified. This report was transcribed using voice recognition technology and might contain unintended computerized metabolic specialist errors. Normal [facility] Comment on above: Performed By: #### [id number] #### [facility] [address] [place] [address] Main OR Intraoperative Recor don 03-30-2024 Main OR Intraoperative Record Main OR Intraoperative Record IntraOp Document Type FT Summary Primary Physician: Josseline Diggs MD Finalized Date/Time: 03/30/24 11:33:38 Pt. Name: SHANIQUE CAMARGO /Sex: 1955 Female Med Rec #: [id number] Physician: Josseline Diggs MD Financial #: [id number] Pt. Type: O Room/Bed: / Admit/Disch: 03/29/24 09:22:54 - 03/29/24 23:59:59 Institution: Case Times FT Entry 1 Patient Times In Room 03/29/24 10:12:00 Out Room 03/29/24 10:33:00 Procedure Times Start 03/29/24 10:17:00 Stop 03/29/24 10:32:00 Anesthesia Times Start 03/29/24 10:12:00 Stop 03/29/24 10:33:00 Time at [facility] 03/29/24 10:21:00 Last Modified By: Kala Vicente RN 03/29/24 10:33:43 General Comments: 03/30/24 Chart opened to review and send charges LRoth CSFA Case Attendance FT Entry 1 Entry 2 Entry 3 Case Attendee Jer CANSECO, Josue Shabazz, Laura Guevara PRODUCT DEVELOPMENT WORKER, Suma Whiting Role Performed RISK INTERN Scrub - Primary Staff - Other Time In 03/29/24 10:12:00 03/29/24 10:12:00 03/29/24 10:12:00 Time Out 03/29/24 10:33:00 03/29/24 10:33:00 03/29/24 10:33:00 Procedure COLONOSCOPY(.) COLONOSCOPY(.) COLONOSCOPY(.) Comments Dr. Johnson supervising help in room Last Modified By: Jules GARCIA, Kala Vicente RN, Kala Acosta RN 03/29/24 10:33:44 03/29/24 10:33:44 03/29/24 10:33:44 Entry 4 Entry 5 Case Attendee Dontae DA SILVA, Josseline Vicente RN, Kala Role Performed Surgeon - Primary Stenotype Machine Operator - Primary Time In 03/29/24 10:12:00 03/29/24 10:12:00 Time Out 03/29/24 10:33:00 03/29/24 10:33:00 Procedure COLONOSCOPY(.) COLONOSCOPY(.) Comments Last Modified By: Jules GARCIA, Kala Acosta RN 03/29/24 10:33:44 03/29/24 10:33:44 Perioperative Protocols FT [...] Applicable) PreOp Antibiotic No Time Out Josue Randle CRNA, Given Participants Laura Shabazz, Paola PRODUCT DEVELOPMENT WORKER, Dontae Hong MD, Josseline Lorenzo, Kala Vicente [...] Primary Procedure Yes Primary Surgeon Dontae DA SILVAJosseline Start 03/29/24 10:17:00 Stop 03/29/24 10:32:00 Anesthesia [...] and tissue Entry 1 Skin Integrity Intact, [place], Warm, & Skin Abnormality No Dry Outcomes Met? Yes Last Modified By: Kala Vicente RN 03/29/24 10:17:53 Post-Care Text: The patient is free from signs and symptoms of injury caused by extraneous objects Patient Positioning FT Pre-Care Text: Identifies physical alterations that require additional precautions for procedure-specific positioning, verifies presence of prosthetics or corrective devices, positions the pat (more content not included)... Normal [facility] Discharge Instructionson Discharge Instructions Discharge Instructions SHANIQUE CAMARGO :1955 Visit Date:03/29/2024 [...] With: Dontae DA SILVA, Josseline Lorenzo Where: [facility] [email or web address] [address]- New Follow Up Appointments after Discharge Follow Up with Dontae DA SILVA, Josseline Lorenzo, [facility] When: Comments: office will call for follow up Where: [email or web address], [address] [place] [phone] Medications What How Much When Why Instructions [...] normal medications unless your doctor tells you ot (more content not included)... Normal [facility] Comment on above: Result Comment: Elec tronically Signed By: Roxie Raphael RN\.celeste\Date and Time Signed: 03/29/24 10:51 EST H&P Updateon 03-29-2024 H&P Update H&P Update Patient: SHANIQUE CAMARGO Age: 68 years Sex: Female : 1955 Associated Diagnoses: None Author: Josseline Diggs MD Preoperative Information Chief compliant/Indication for procedure: Rectal [...] Impression and Plan Diagnosis: Rectal bleeding -colonoscopy Normal [facility] Main OR PACU II Recordon Main OR PACU II Record Main OR PACU II Record PACU Phase II Document Type FT Summary Primary Physician: Josseline Diggs MD Finalized Date/Time: 03/29/24 11:20:01 Pt. Name: SHANIQUE CAMARGO Anna Ac/Sex: 1955 Female Med Rec #: [id number] Physician: Josseline Diggs MD Financial #: [id number] Pt. Type: O Room/Bed: / Admit/Disch: 03/29/24 [...] Signed By: Roxie Raphael RN 03/29/24 11:20 Normal [facility] Main OR Preoperative Recordo n 03-29-2024 Main OR Preoperative Record Main OR Preoperative Record Holding Area Document Type FT Summary Primary Physician: Josseline Diggs MD Finalized Date/Time: 03/29/24 09:50:24 Pt. Name: SUJIT CAMARGONETTE Miller D.O.B./Sex: 1955 Female Med Rec #: [id number] Physician: Josseline Diggs MD Financial #: [id number] Pt. Type: O Room/Bed: / Admit/Disch: 03/29/24 [...] completed prep at 0800 and remained NPO since/CHIKISRN Finalized By: Brianna Moyer RN Document Signatures Signed By: Brianna Moyer RN 03/29/24 09:50 Normal [facility] Operative Reporton Operative Report Operative Report Patient: SHANIQUE CAMARGO Age: 68 years Sex: Female : 1955 Associated Diagnoses: None Author: Josseline Diggs MD Pre-Procedure Procedure Date 03/29/2024 10:34:00 . Procedure Type: Colonoscopy with removal of tumor(s), polyp(s), or other lesion(s) by cold snare technique. Procedure provider Performed by Josseline Diggs MD. Current history and physical Documented on chart. Gallbladder ([id number]) on 12/14/2023 at 67 Years. Comments: 03/22/2024 12:33 LORRAINE - Carin Knight A removal EGD - esophagogastroduodenoscopy ([id number]) on 11/24/2023 at 67 Years. Repair of left inguinal hernia ([id number]) on 09/04/2020 at 64 Years. Colonoscopy and biopsy of colon ([id number]) on 04/21/2019 at 63 Years. Comments: 04/26/2019 13:24 LORRAINE - Polo Rivera Hyperplastic polyp Colonoscopy normal ([id number]) on 02/23/2004 at 48 Years. Total abdominal hysterectomy (622997053). Bilateral replacement of knee joints (8328117247). Release of carpal tunnel for median nerve decompression (12129877). Tonsillectomy, primary or secondary; younger than age 12 (62123).. Past Medical History Resolved Encounter for screening colonoscopy (045351500): Resolved. Cystitis, acute (441702449): Resolved. COVID-19 virus detected (4001918141): Resolved. FH: cholecystectomy (9309967979): Resolved.. Family History Primary malignant neoplasm of colon Mother Hypertension Mother COPD Father Mother . Procedure History Gallbladder ([id number]) on 12/14/2023 at 67 Years. Comments: 03/22/2024 12:33 LORRAINE - Carin Knight EGD - esophagogastroduodenoscopy (0389082014) on 11/24/2023 at 67 Years. Repair of left inguinal hernia (7907451143) on 09/04/2020 at 64 Years. Colonoscopy and biopsy of colon ([id number]) on 04/21/2019 at 63 Years. Comments: 04/26/2019 13:24 LORRAINE - Polo Rivera Hyperplastic polyp Colonoscopy normal (989279212) on 02/23/2004 at 48 Years. Total abdominal hysterectomy (665888506). Bilateral replacement of knee joints (9600506209). Release of carpal tunnel for median nerve decompression (60216907). Tonsillectomy, primary or secondary; younger than age 12 (77700).. Colorectal neoplasm risk assessment Average risk. Informed [...] Daily, # 30 cap(s), Refills(s) 0, Pharmacy: [facility], 157.4, cm, 03/22/24 12:37:00 EST, Height/Length [...] 7. Normal Terminal ileum Images Procedure images: Rec_hd_video___ [id number].jpg Rec_hd_video___ 42_05_309.jpg Rec_hd_video__ 39_[id number]_771.jpg Rec_hd_video___ 37_53_361.jpg Rec_hd_video___ 38_59_368.jpg Rec1_hd_video__T1_ 36_35_151.jpg Rec1_hd_video___ 35_35_946.jpg (Inserted (more content not included)... [facility] Comment on above: Result Comment: Elec tronically Signed By: Dontae DA SILVA, Josseline Lorenzo\.br\Date and Time Signed: 03/29/24 10:36 EST Other Comment: Carol lehman Attachment - attachment storage system not supported [id number] Can be viewed in source system Missing Attachment - attachment storage system not supported [id number] Can be viewed in source system Missing Attachment - attachment storage system not supported [id number] Can be viewed in source system Missing Attachment - attachment storage system not supported 0304439 Can be viewed in source system Missing Attachment - attachment storage system not supported [id number] Can be viewed in source system Missing Attachment - attachment storage system not supported [id number] Can be viewed in source system Missing Attachment - attachment storage system not supported 0995078 Can be viewed in source system Missing Attachment - attachment storage system not supported [id number] Can be viewed in source system Missing Attachment - attachment storage system not supported [id number] Can be viewed in source system Missing Attachment - attachment storage system not supported [id number] Can be viewed in source system Ambulatory Visit Summaryon 0 03-22-2024 Ambulatory Visit Summary Ambulatory Visit Summary SHANIQUE CAMARGO :1955 Visit Date:03/22/2024 Ambulatory Visit Instructions Your Diagnosis Abdominal pain GERD (gastroesophageal reflux disease) Family history of colon cancer Irritable bowel syndrome with constipation Belching FH: cholecystectomy Straining during bowel movements Bleeding per rectum S/P cholecystectomy Your Care Team Attending Physician - Dontae DA SILVA, Josseline Lorenzo Primary Care Physician - Katelyn Yoon MD This Is Your Medications List dexlansoprazole [...] With: Dontae DA SILVA, Josseline Lorenzo Where: [facility] [address] [place] [address] [place] [address]- Medications What How Much When Why Instructions New dexlansoprazole (Dexilant 30 mg oral delayed release capsule) 1 Capsules By Mouth Every day Abdominal pain GERD (gastroesophageal reflux disease) Family history of colon cancer Irritable bowel syndrome with constipation Belching Pickup at [facility] Unchanged hyoscyamine (hyoscyamine 0.125 mg oral [...] physician if questions or concerns Pharmacy Information [facility]: [address] [place], [place] [phone] Allergies Reglan (Sleep disturbance, Chest pain) dicyclomine [...] for choosing us for your care. Normal [facility] Gastroenterology Office/Clin ic Noteon 03-22-2024 Gastroenterology Office/Clinic Note Gastroenterology Office/Clinic Note Chief Complaint Patient c/o change in bowel habits and sometimes bleeding after straining. Abdominal pain that has resolved since patient stopped medications. HPI Staff New- Patient is a(n) 68 year old female who was referred by Dr Yoon for GERD, abdominal pain. Patient states that [...] so she discontinued it. She saw Dr Peña for abdominal pain 11/16/23. GERD: Onset of symptoms: Improving/worsening factors: Treatment's tried: -Omeprazole (Prilosec) - no -Pantoprazole (Protonix) - yes -Esomeprazole (Nexium) - no -Lanosprazole (Prevacid) - no -Dexlansoprazole (Dexilant) - no -Rabeprazole (Aciphex) - no -Famotidine (Pepcid) - _caused abdominal pain -Vonoprazon (Voquezna) - no TUMS- helped Fhx of colon cancer- mother Denies blood thinners. Denies GLP-1 agonists. EGD w/ Dr Peña 11/24/23 Normal EGD. Colonoscopy w/ Dr Peña 04/21/2019 1. Severe sigmoid diverticulosis. 2. 3 [...] no acute distress HEENT: atraumatic normocephalic Cardiovascular: (more content not included)... Normal [facility] Comment on above: Result Comment: Elec tronically Signed By: Dontae DA SILVA, Josseline Lorenzo\.br\Date and Time Signed: 03/22/24 13:09 EST Cody 12-14-2023 L Specimen: [id number] eceived: 12/16/23 Status: LUIS Garcia Num: [id number] Spec Type: Surgical Subm Dr: Jatin Arvizu DO Tissues: A Gallbladder (GB) Procedures: HE, Gross/Micro L3 Age/ Patient Sex Location Account Attending Physician Shanique Camargo 67/F LABELL [id number] Jatin Arvizu DO SPEC NUM: [id number] RECD: 12/16/23 STATUS: LUIS GARCIA NUM: [id number] ROSENDO: 12/14/[address]: Jatin Arvizu DO ENTERED: 12/16/[address]: Ifrah Combs SPEC TYPE: Surgical DEPT: KATY SHETTY ENTERED BY: [id number] RECV BY: [id number] ORDERED: NOEMY Gross/Micro L3 ORDERED: Debo SALGUERO/Micro L3 Pathological Diagnosis Gallbladder, cholecystectomy: - Chronic [...] The mucosal surface is green and velvety. Fashion Designer sections are submitted in cassette A1. Microscopic Description Microscopic examination is performed. -------- Specimen: [id number] Received: 12/16/23 Status: LUIS Garcia Num: [id number] Spec Type: Surgical Subm Dr: Jatin Arvizu DO Tissues: A Gallbladder (GB) Procedures: Debo SALGUERO/Micro L3 -------- Patient: Shanique Camargo [id number] (Continued) -------- Specimen: [id number] Received: 12/16/23 (Continued) Signed (signature on file) Nghia Ramirez MD 12/21/23 1056 -------- Specimen: [id number] Received: 12/16/23 Status: LUIS Stephen Num: [id number] Spec Type: Surgical Subm Dr: Jatin Arvizu DO Tissues: A Gallbladder (GB) Procedures: Debo SALGUERO/Crystal Pritchett -------- Patient: Shanique Camargo [id number] (Continued) -------- Specimen: [id number] Received: 12/16/23 (Continued) CPT Codes 86268 -------- -------- Specimen: [id number] Received: 12/16/23 Status: LUIS Garcia Num: [id number] Spec Type: Surgical Subm Dr: Jatin Arvizu DO Tissues: A Gallbladder (GB) Procedures: Debo SALGUERO/Crystal L3 -------- Patient: Shanique Camargo [id number] (Continued) -------- Signed (signature on file) Nghia Ramirez MD 12/21/23 1056 [place] [facility] Ambulatory Visit Summaryon 0 11-16-2023 Ambulatory Visit Summary Ambulatory Visit Summary SHANIQUE CAMARGO :1955 Visit Date:11/16/2023 Ambulatory Visit Instructions Your Care Team Attending Physician Bernadette PEÑA MD, Hayes Beasley Primary Care Physician - Katelyn Yoon MD Referring Physician - Katelyn Yoon MD This Is Your Medications List Contact [...] for choosing us for your care. Normal [facility] MG MAMM SCREEN 3D TERA CADon 07-04-2021 MG MAMM SCREEN 3D TERA CAD Patient: SHANIQUE CAMARGO Exam Date: 07/04/2021 : 1955 Gender:F Ordering : DR KATELYN YOON . Admission #: [id number] Family : Order #: [id number] CLICK HERE TO VIEW EXAM RADIOLOGY REPORT [...] colon cancer at age 70. LOCATION: [facility] BREAST COMPOSITION: Almost entirely fatty. FINDINGS: DIAGNOSTIC CATEGORY 1--NEGATIVE. NO CHANGE FROM COMPARISON ASSESSMENT. RIGHT BREAST: No significant suspicious finding. LEFT BREAST: No significant suspicious finding. RECOMMENDATIONS: ROUTINE MAMMOGRAM AND CLINICAL EVALUATION IN 12 MONTHS. PLEASE NOTE: A NORMAL MAMMOGRAM DOES NOT EXCLUDE THE POSSIBILITY OF BREAST CANCER. A CLINICALLY SUSPICIOUS PALPABLE LUMP SHOULD BE BIOPSIED. Dictated by: Edmond Means MD on 07/04/2021 at 15:02 Approved by: Edmond Means MD on 07/04/2021 at 15:03 Normal [facility] Covid-19 PCR ([facility]on 08-22 SARS-CoV-2 (COVID-19) RNA JESSENIA+probe Ql (Unsp spec) Not detected Normal NOT DETECTED [facility] Comment on above: Result Comment: This test is not yet approved or cleared by the [place] FDA. When there are no FDA-approved or cleared tests available, and other criteria are met, FDA can make tests available under an emergency access mechanism called an Emergency Use Authorization (EUA). The EUA for this test is supported by the [place] of Health and Human Service's (HHS's) declaration [...] consistent with SARS-CoV-2. Performed By: #### [facility] #### [facility] [address] [place] [address] Josef Solano BNPon 08-22-2020 Natriuretic peptide B (Bld) [Mass/Vol] 168.0 pg/mL Normal <=900.0 [facility] Comment on above: Performed By: #### B CONTRACT CLERK, CMP #### [facility] [address], [place] [address] Josefbrandt Solano CBC AUTO DIFFon 08-22-2020 BASO # 0.0 103/ul Normal 0.0-0.1 [facility] Comment on above: Performed By: #### C BC ####[facility] [address] [place] [phone] Xiomara Basophils/100 WBC (Bld) 0.6 % Normal 0.2-2.0 [facility] Comment on above: Performed By: #### C BC ####[facility] [address] [place], [place] [address]Gerken Xiomara EO # 0.1 103/ul Normal 0.0-0.7 [facility] Comment on above: Performed By: #### C BC ####[facility] [address] [place] [phone] Xiom[place] Eosinophils/100 WBC (Bld) 0.9 % Normal 0.9-7.0 [facility] Comment on above: Performed By: #### C BC ####[facility] [address] [place] [address]Gerken Xiom[place] Erythrocyte distribution width (RBC) [Ratio] 12.7 % Normal 11.0-15.0 [facility] Comment on above: Performed By: #### C BC ####[facility] [address] [place], [place] [address]Gerken Xiomara Hematocrit (Bld) [Volume fraction] 40.3 % Normal 36.0-48.0 [facility] Comment on above: Performed By: #### C BC ####[facility] [address] [place], [place] [address]Gerken Xiomara Hemoglobin (Bld) [Mass/Vol] 12.9 g/dL Normal 12.0-16.0 [facility] Comment on above: Performed By: #### C BC ####[facility] [address] [place] [address]Gerken Xiomara IG # 0.01 10e3/ul Normal 0.00-0.03 [facility] Comment on above: Performed By: #### C BC ####[facility] [address] Xi[place] IG % 0.1 % Normal 0.0-0.5 [facility] Comment on above: Performed By: #### C BC ####[facility] [address] [place] [address] Xiomara LYMPH # 2.4 103/ul Normal 1.2-3.8 [facility] Comment on above: Performed By: #### C BC ####[facility] [address] [place] [address] Xiomara Lymphocytes/100 WBC (Bld) 34.5 % Normal 20.5-60.0 [facility] Comment on above: Performed By: #### C BC ####[facility] [address] [place] [address] Xiomara MANUAL DIFF REQ NO Normal [facility] Comment on above: Performed By: #### C BC ####[facility] [address] [place] [address] Xiomara MCH (RBC) [Entitic mass] 30.0 pg Normal 26.7-34.0 [facility] Comment on above: Performed By: #### C BC ####[facility] [address] [place] [address] Xiomara MCHC (RBC) [Mass/Vol] 32.0 g/dL Normal 29.9-35.2 [facility] Comment on above: Performed By: #### C BC ####[facility] [address] [place] [address] Xiomara MCV (RBC) [Entitic vol] 93.7 fL Normal 81.0-99.0 [facility] Comment on above: Performed By: #### C BC ####[facility] [address] [place], [place] [address]Fwfsbn Xiomara MONO # 0.7 103/ul Normal 0.3-0.8 [facility] Comment on above: Performed By: #### C BC ####[facility] [address] [place] [address]Gerken Xiom[place] Monocytes/100 WBC (Bld) 9.3 % Normal 1.7-12.0 [facility] Comment on above: Performed By: #### C BC ####[facility] [address] [place], [place] [address]Gerken Xiomara NEUT # 3.8 103/ul Normal 1.4-6.5 [facility] Comment on above: Performed By: #### C BC ####[facility] [address] [place], [place] [address]ken Xiomara Neutrophils/100 WBC (Bld) 54.6 % Normal 43.0-75.0 [facility] Comment on above: Performed By: #### C BC ####[facility] [address] [place], [place] [address]Gerken Xiom[place] Platelet mean volume (Bld) [Entitic vol] 11.0 fL Normal 9.5-13.5 [facility] Comment on above: Performed By: #### C BC ####[facility] [address] [place], [place] [address]Gerken Xiomara PLT 211 103/ul Normal 150-450 [facility] Comment on above: Performed By: #### C BC ####[facility] [address] [place], [place] [address]Gerken Xiom[place] RBC 4.30 106/ul Normal 4.20-5.40 [facility] Comment on above: Performed By: #### C BC ####[facility] [address] [place], [place] [address]Gerken Xiom[place] WBC 7.0 103/ul Normal 4.0-11.0 [facility] Comment on above: Performed By: #### C BC ####[facility] [address] [place], [place] [address]ken Xiomara D-DIMERon 07-01-2021 D-DIMER 0.25 mg/L FEU Normal 0.19-0.50 [facility] Comment on above: Performed By: #### D DIM #### [facility] [address] [place], [place] [phone] Josef Solano D-DIMER COMMENTS SEE BELOW Normal [facility] Comment on above: Result [...] hospitalization. Performed By: #### D DIM #### [facility] [address] [place] [address] Josef Solano PROF 14(COMP METB)on 021 Albumin [Mass/Vol] 3.8 g/dL Normal 3.5-5.0 [facility] Comment on above: Performed By: #### B CONTRACT CLERK, CMP #### [facility] [address] [place], [place] [address] Josef Solano Albumin/Globulin [Mass ratio] 1.2 {ratio} Normal [facility] Comment on above: Performed By: #### B CONTRACT CLERK, CMP #### [facility] [address] [place], [place] [address] Josef Solano ALP [Catalytic activity/Vol] 81 U/L Normal 38-126 [facility] Comment on above: Performed By: #### B CONTRACT CLERK, CMP #### [facility] [address] [place], [place] [address] Josef Solano ALT [Catalytic activity/Vol] 22 U/L Normal 9-52 [facility] Comment on above: Performed By: #### B CONTRACT CLERK, CMP #### [facility] [address] [place], [place] [address] Josef Solano Anion gap [Moles/Vol] 11.9 mmol/L Normal [facility] Comment on above: Performed By: #### B CONTRACT CLERK, CMP #### [facility] [address], [place] [address] Josef Xiomara AST [Catalytic activity/Vol] 18 U/L Normal 14-36 [facility] Comment on above: Performed By: #### B CONTRACT CLERK, CMP #### [facility] [address] [place] [phone] Josef Xiomara Bilirubin [Mass/Vol] 0.4 mg/dL Normal 0.2-1.3 [facility] Comment on above: Performed By: #### B CONTRACT CLERK, CMP #### [facility] [address] [place] [address] Josef Xiomara Calcium [Mass/Vol] 8.7 mg/dL Normal 8.4-10.2 [facility] Comment on above: Performed By: #### B CONTRACT CLERK, CMP #### [facility] [address] [place] [address] Josef Xiomara Chloride [Moles/Vol] 104 mmol/L Normal 98-107 [facility] Comment on above: Performed By: #### B CONTRACT CLERK, CMP #### [facility] [address] [place] [address] Josef Xiomara CO2 [Moles/Vol] 29.1 mmol/L Normal 22.0-30.0 [facility] Comment on above: Performed By: #### B CONTRACT CLERK, CMP #### [facility] [address] [place] [address] Josef Xiomara Creatinine [Mass/Vol] 0.59 mg/dL Normal 0.52-1.04 [facility] Comment on above: Performed By: #### B CONTRACT CLERK, CMP #### [facility] [address] [place] [address] Josef Xiomara EGFR-AF SRI LANKAN >60 Normal >=60 [facility] Comment on above: Performed By: #### B CONTRACT CLERK, CMP #### [facility] [address] [place] [address] Josef Xiomara EGFR-NON AF SRI LANKAN >60 Normal >=60 [facility] Comment on above: Performed By: #### B CONTRACT CLERK, CMP #### [facility] [address], [place] [address] Josef Xiomara Globulin (S) [Mass/Vol] 3.3 g/dL Normal [facility] Comment on above: Performed By: #### B CONTRACT CLERK, CMP #### [facility] [address], [place] [address] Josef Xiomara Glucose [Mass/Vol] 72 mg/dL Critically low 74-106 [facility] Comment on above: Performed By: #### B CONTRACT CLERK, CMP #### [facility] [address] [place] [phone] Josef Xiomara Potassium [Moles/Vol] 4.0 mmol/L Normal 3.4-5.0 [facility] Comment on above: Performed By: #### B CONTRACT CLERK, CMP #### [facility] [address] [place] [address] Josef Xiomara Protein [Mass/Vol] 7.1 g/dL Normal 6.1-8.2 [facility] Comment on above: Performed By: #### B CONTRACT CLERK, CMP #### [facility] [address] [place] [address] Josef Xiomara Sodium [Moles/Vol] 141 mmol/L Normal 137-145 [facility] Comment on above: Performed By: #### B CONTRACT CLERK, CMP #### [facility] [address] [place], [place] [address] Josef Xiomara Urea nitrogen [Mass/Vol] 20.0 mg/dL Critically high 7.0-17.0 [facility] Comment on above: Performed By: #### B CONTRACT CLERK, CMP #### [facility] [address] [place], [place] [address] Josef Xiomara Urea nitrogen/Creatinin e [Mass ratio] 33.9 mg/mg Normal [facility] Comment on above: Performed By: #### B CONTRACT CLERK, CMP #### [facility] [address] [place] [phone] Josef Xiomara CREATININEon 07-25-2020 Creatinine [Mass/Vol] 0.63 mg/dL Normal 0.52-1.04 [facility] Comment on above: Performed By: #### C ZEYAD #### [facility] [address], [place] [address] Josef Solano EGFR-AF SRI LANKAN >60 Normal >=60 [facility] Comment on above: Performed By: #### C ZEYAD #### [facility] [address], [place] [address] oJsef Solano EGFR-NON AF SRI LANKAN >60 Normal >=60 [facility] Comment on above: Performed By: #### C ZEYAD #### [facility] [address], [place] [address] PELVIS W CONon 07-25-2020 [...] by: ALLEY ALLEN Date: 2020-07-25 14:11 Normal [facility] Vital Signs Date Time Vital Sign Value Performing Clinician Facility 04-12-2024 13:28-0500 Blood Pressure Location Josseline Diggs [facility] 04-12-2024 13:28-0500 Diastolic blood pressure 84 mm[Hg] Josseline Diggs [facility] 04-12-2024 13:28-0500 Heart rate 80 /min Mohamad Mouchli [facility] 04-12-2024 13:28-0500 Respiratory rate 14 /min Mohamad Mouchli [facility] 04-12-2024 13:28-0500 Systolic blood pressure 130 mm[Hg] Mohamad Mouchli [facility] 03-29-2024 11:05-0500 Diastolic blood pressure 98 mm[Hg] Mohamad Mouchli [facility] 03-29-2024 11:05-0500 Heart rate 80 /min Mohamad Mouchli [facility] 03-29-2024 11:05-0500 Respiratory rate 18 /min Mohamad Mouchli [facility] 03-29-2024 11:05-0500 SaO2% (BldA) [Mass fraction] 94 % Mohamad Mouchli [facility] 03-29-2024 11:05-0500 Systolic blood pressure 119 mm[Hg] Mohamad Mouchli [facility] 03-29-2024 10:50-0500 Diastolic blood pressure 82 mm[Hg] Mohamad Mouchli [facility] 03-29-2024 10:50-0500 Heart rate 65 /min Mohamad Mouchli [facility] 03-29-2024 10:50-0500 Respiratory rate 20 /min Mohamad Mouchli [facility] 03-29-2024 10:50-0500 SaO2% (BldA) [Mass fraction] 96 % Mohamad Mouchli [facility] 03-29-2024 10:50-0500 Systolic blood pressure 134 mm[Hg] Mohamad Mouchli [facility] 03-29-2024 10:40-0500 Diastolic blood pressure 75 mm[Hg] Mohamad Mouchli [facility] 03-29-2024 10:40-0500 Heart rate 64 /min Mohamad Mouchli [facility] 03-29-2024 10:40-0500 Respiratory rate 20 /min Mohamad Mouchli [facility] 03-29-2024 10:40-0500 SaO2% (BldA) [Mass fraction] 97 % Mohamad Mouchli [facility] 03-29-2024 10:40-0500 Systolic blood pressure 123 mm[Hg] Mohamad Mouchli [facility] 03-29-2024 10:36-0500 Body temperature 97.88 [degF] Mohamad Mouchli [facility] 03-29-2024 09:46-0500 Blood Pressure Location Mohamad Mouchli [facility] 03-29-2024 09:46-0500 Body temperature 97.52 [degF] Mohamad Mouchli [facility] 03-29-2024 09:46-0500 Respiratory rate 16 /min Mohamad Mouchli [facility] 03-22-2024 12:43-0500 Blood Pressure Location Mohamad Mouchli [facility] 03-22-2024 12:43-0500 Diastolic blood pressure 84 mm[Hg] Mohamad Mouchli [facility] 03-22-2024 12:43-0500 Heart rate 81 /min Josseline Diggs [facility] 03-22-2024 12:43-0500 Systolic blood pressure 129 mm[Hg] Josseline Diggs [facility] 12-27-2023 12:51-0500 Body height 157.5 cm Jatin Arvizu DO Work Phone: [facility] 12-27-2023 12:51-0500 Body mass index (BMI) [Ratio] 27.62 kg/m2 Jatinopal Arvizu DO Work Phone: [facility] 12-27-2023 12:51-0500 Body weight 68.49 kg Jatinopal Arvizu DO Work Phone: [facility] 12-27-2023 12:51-0500 Diastolic blood pressure 74 mm[Hg] Jatinopal Arvizu DO Work Phone: [facility] 12-27-2023 12:51-0500 Heart rate 83 /min Jatinopla Arvizu DO Work Phone: [facility] 12-27-2023 12:51-0500 Respiratory rate 12 /min Jatinopal Arvizu DO Work Phone: [facility] 12-27-2023 12:51-0500 SaO2% (BldA) [Mass fraction] 96 % Jatinopal Arvizu DO Work Phone: [facility] 12-27-2023 12:51-0500 Systolic blood pressure 118 mm[Hg] Jatin Arvizu DO Work Phone: [facility] 12-06-2023 10:57-0400 Body height 152.4 cm Jatinopal Arvizu DO Work Phone: [facility] 12-06-2023 10:57-0400 Body mass index (BMI) [Ratio] 29.88 kg/m2 Jatin Arvizu DO Work Phone: [facility] 12-06-2023 10:57-0400 Body weight 69.4 kg Jatin Arvizu DO Work Phone: [facility] 12-06-2023 10:57-0400 Diastolic blood pressure 68 mm[Hg] Jatin Arvizu DO Work Phone: [facility] 12-06-2023 10:57-0400 Systolic blood pressure 122 mm[Hg] Jatin Arvizu DO Work Phone: [facility] 11-16-2023 15:08-0400 Blood Pressure Location Hayes NILL [facility] 11-16-2023 15:08-0400 Diastolic blood pressure 76 mm[Hg] Hayes NILL [facility] 11-16-2023 15:08-0400 Heart rate 70 /min Hayes NILL [facility] 11-16-2023 15:08-0400 Respiratory rate 16 /min Hayes NILL [facility] 11-16-2023 15:08-0400 Systolic blood pressure 136 mm[Hg] Hayes NILL [facility] Encounters Encounter Date Encounter Type Care Provider Facility Start: 05-10-2024 End: 05-10-2024 ambulatory [facility] Start: 04-12-2024 End: 04-12-2024 ambulatory Josseline Diggs Facility:[facility] Start: 04-12-2024 End: 04-12-2024 Patient encounter procedure Josseline Diggs [facility] Start: 03-29-2024 End: 03-29-2024 ambulatory Josseline Diggs Facility:[facility] Start: 03-29-2024 End: 03-29-2024 Patient encounter procedure Josseline Diggs [facility] Start: 03-22-2024 End: 03-22-2024 ambulatory Josseline Diggs Facility:[facility] Start: 03-22-2024 End: 03-22-2024 Patient encounter procedure Josseline Diggs [facility] Start: 03-16-2024 ambulatory Rajan Talal Angelitamini Facility:[facility] Start: 02-18-2024 ambulatory Rajan Angelitamini Facili ty:[facility] Start: 12-27-2023 End: 12-27-2023 Bamboo flowsheet Jatin Arvizu DO Work Phone: [facility] Start: 12-27-2023 End: 12-27-2023 Bamboo flowsheet Jatin Arvizu DO Work Phone: [facility] Start: 12-27-2023 End: 12-27-2023 Postop follow up visit related to original px Jatin Arvizu DO Work Phone: [facility] Comment on above: Status post cholecys tectomy (Primary Dx) Start: 12-27-2023 End: 12-27-2023 ambulatory JATIN ARVIZU Not Available Start: 12-14-2023 End: 12-14-2023 ambulatory Jatin Catracho [facility] Work Phone: Start: 12-14-2023 End: 12-14-2023 Departed Referred DO Jatin Arvizu Work Phone: [facility] Start: 12-06-2023 End: 12-06-2023 Bamboo flowsheet Jatin Arvizu DO Work Phone: [facility] Start: 12-06-2023 End: 12-06-2023 Bamboo flowsheet Jatin Arvizu DO Work Phone: [facility] Start: 12-06-2023 End: 12-06-2023 Office outpatient new 45 minutes Jatin Arvizu DO Work Phone: [facility] Comment on above: Biliary dyskinesia ( Primary Dx) Start: 12-06-2023 End: 12-06-2023 ambulatory JATIN ARVIZU Not Available Start: 11-24-2023 End: 11-24-2023 ambulatory Hayes PEÑA Facility:CD:[id number] Start: 11-16-2023 End: 11-16-2023 ambulatory Hayes PEÑA Facility:[facility] Start: 11-16-2023 End: 11-16-2023 Patient encounter procedure Hayes PEÑA [facility] Start: 09-14-2023 End: 09-14-2023 ambulatory MD Katelyn Yoon Work Phone: [facility] Work Phone: Start: 09-14-2023 End: 09-14-2023 Discharged Recurring MD Katelyn Yoon Work Phone: [facility] Start: 07-04-2021 End: 07-05-[address] KATELYN YOON Facility:[facility] Start: 03-10-2021 End: 03-11-[address] KATELYN YOON Facility:[facility] Start: 09-09-2020 Encounter for prepro cedural laboratory examination DR HAYES PEÑA [facility] Start: 09-04-2020 End: 09-04-[address] HAYES PEÑA Facility:[facility] Start: 08-31-2020 End: 09-01-[address] HAYES PEÑA Facility:[facility] Start: 08-31-2020 End: 09-01-2020 Encounter for preprocedural laboratory examination DR HAYES PEÑA Facility:[facility] Start: 08-30-2020 Encounter for prepro cedural cardiovascular examination DR HAYES PEÑA [facility] Start: 08-22-2020 End: 08-23-[address] HAYES PEÑA Facility:[facility] Start: 07-25-2020 End: 07-26-[address] HAYES PEÑA Facility:[facility] Start: 07-12-2020 End: 07-12-[address] ALLEY ALLEN Facility:[facility] Procedures Date Procedure Procedure Detail Performing Clinician Start: 03-29-2024 Colonoscopy Josseline Diggs Comment on above: divertiulosis t/o colon, polyps x3, and large IH Start: 12-14-2023 Gallbladder structure (body structure) Josseline Diggs Comment on above: removal Start: 11-24-2023 Esophagogastroduodenoscopy Josseline gonzales Start: 09-04-2020 Repair of left inguinal hernia Hayes RODRIGUEZ Start: 04-21-2019 Colonoscopy and biopsy of colon Hayes PEÑA Comment on above: Hyperplastic polyp Start: 09-23-2016 Mammography Jatin Arvizu DO Work Phone: Start: 02-23-2004 Colonoscopy normal (finding) Hayes Miller Bilateral replacemen t of knee joints Hayes PEÑA Decompression of median nerve Hayes PEÑA History of cholecystectomy Statu s post cholecystectomy Jatin Arvizu DO Work Phone: History of cholecystectomy S/P cholecyste ctomy oJsseline Diggs Tonsillectomy primary/secondary Hayes PEÑA Total abdominal hysterectomy Hayes PEÑA Plan of Treatment Date Care Activity Detail Author Start: 12-27-2023 End: 12-27-2023 Patient encounter procedure 12/27/2023 1:00 PM EST Office Visit [facility] [address] [place] [phone] CatrachoJatin DO [address] [place] [address] Arrived [facility] Comment on above: Arrived Start: 12-06-2023 End: 12-06-2023 Patient encounter procedure 12/06/2023 11:00 AM EDT Office Visit [facility] [address] [place] [address] CatrachoJatin millard DO [address] [place] [address] Arrived [facility] Comment on above: Arrived Start: 10-24-2023 Influenza vaccination Influenza Vacc ine (#1) [facility] Start: 2018 Pneumococcal Vaccine : 65+ Years (1 of 1 - PCV) Pneumococcal Vaccine: 65+ Years (1 of 1 - PCV) [facility] Start: 09-23-2017 Screening for malign ant neoplasm of breast Mammogram [facility] Start: 1955 Screening for malign ant neoplasm of colon [facility] Immunizations Immunization Date Immunization Notes Care Provider Isabella mata 03-10-2024 influenza virus vaccine, unspecified formulation Josseline Diggs [facility] 10-19-2020 SARS-CoV-2 (COVID-19 ) mRNA BNT-162b2 vax [employer] Momarquisli [facility] 09-24-2020 SARS-CoV-2 (COVID-19 ) mRNA BNT-162b2 vax [employer] Mouchli [facility] 01-07-2018 influenza virus vaccine, unspecified formulation Jatin Arvizu DO Work Phone: [facility] NEGATED: Highlighted row has not occurred!04-12-2019 influenza virus vaccine, live, attenuated, for intranasal use Hayes PEÑA [facility] Payers Date Payer Category Payer Self-pay [id number] 2023 Medicare (Managed Care) [facility] MEDIC[facility] [id number] 2023 Private Health Insurance [id number] 1961 Medicare [id number] 1961 Medicare [id number] 1955 Unknown [id number] 2.16.840.1.715266.3.579.2. 593 1955 Unknown [id number] 2.16.840.1.376313.3.579.2. 593 1953 Unknown [id number] 2.16.840.1.522282.3.579.2. 593 1953 Unknown [id number] 2.16.840.1.188489.3.579.2. 593 1953 Unknown [id number] 2.16.840.1.540322.3.579.2. 593 1953 Unknown [id number] 2.16.840.1.713153.3.579.2. 593 1953 Unknown [id number] 2.16.840.1.283831.3.579.2. 593 1953 Unknown [id number] 2.16.840.1.148242.3.579.2. 1259 1953 Unknown [id number] 2.16.840.1.158439.3.579.2. 1259 1953 Unknown [id number] 2.16.840.1.180976.3.579.2. 727 1953 Unknown [id number] 2.16.840.1.194342.3.579.2. 727 1953 Unknown [id number] 2.16.840.1.302098.3.579.2. 727 1953 Unknown [id number] 2.16.840.1.357033.3.579.2. 727 1953 Unknown [id number] 2.16.840.1.575432.3.579.2. 727 1953 Unknown [id number] 2.16.840.1.628450.3.579.2. 727 Medicare Medicare [id number] Unknown [id number] 2.16.840.1.964423.3.579.2. 531 Unknown [id number] 2.16.840.1.638407.3.579.2. 531 Social History Date Type Detail Facility Tobacco smoking status NHIS Unknown if ever smoked [facility] Work Phone: Start: 1955 Sex Assigned At Female [facility] Start: 11-16-2023 End: 04-12-2024 Tobacco smoking status Never smoked tobacco (finding) [facility] Tobacco smoking status Never [facility] Sex Assigned At Female [facility] Tobacco smoking status NHIS Tobacco smoking consumption unknown [facility] Start: 1955 Sex assigned at Not on file N [facility] Functional Status Date Assessment Result Facility 04-12-2024 Functional Status N/A [facility] 03-29-2024 Functional Status N/A [facility] 03-22-2024 Functional Status N/A [facility] 11-16-2023 Functional Status N/A [facility] Clinical Notes 07-12-2020 to 05-10-2024 Note Date & Type Note Facility 05-10-2024 Note Patient: Shanique Cant er Procedure Summary Date: 05/10/24 Room / Location: [facility] Endoscopy Anesthesia Start: 08 Anesthesia Stop: 0859 Procedure: EUS (UPPER) W/ EGD Diagnosis: Bile [...] per anesthesia protocol. No notable events documented. [facility] 05-10-2024 Note Patient: Shanique Cant er Procedure Summary Date: 05/10/24 Room / Location: [facility] Endoscopy Anesthesia Start: 809 Anesthesia Stop: Procedure: EUS (UPPER) W/ EGD Diagnosis: Bile leak RUQ abdominal pain Intestinal angina Scheduled Providers: Fawad Pacheco MD; Christopher Álvarez MD; MAGALI Bernal Responsible Provider: Christopher Álvarez MD Anesthesia Type: MAC ASA Status: 2 Anesthesia Post Transport [facility] air Patient Monitor: direct observation Transport: uneventful Patient condition is: stable [facility] 05-10-2024 Note Patient: Shanique Cant er Procedure Information Date/Time: 05/10/24 0845 Scheduled providers: Fawad Pacheco MD; Christopher Álvarez MD; MAGALI Bernal Procedure: EUS (UPPER) W/ EGD Location: [facility] [place] [facility] Relevant Problems Anesthesia (within normal limits) [...] Plan discussed with CAA. Additional Equipment Requests [facility] 03-29-2024 Evaluation + Plan note Extrac gabbie from: Title:ANES Post-operative No te---General Alex Author:Alex DA SILVA, Hayes Carrion. Date:03/29/24 Plan Transfer/Discharge: Transfer/Discharge Discharge when meets criteria ( From PACU to floor ). Extracted from: Title:ANES Pre-operative Note - Endo Author:Soo almodovar MD, Hayes Anton Date:03/29/24 Plan Citizen Of [place] Society of Anesthesiologists (ASA) physical status classification: Class II. Anesthetic Preoperative Plan: Anesthesia General, and -TIVA. Future Appointments Appointment Date:04/10/2024 01:30:00 PM Scheduled Provider:Dontae DA SILVA, Josseline Lorenzo Location:[facility] Appointment Type:[facility] Follow Up [facility] 02-05-2025 Hospital Discharge instructions Patient Education 03/29/2024 10:50:36 Colonoscopy, Care After Surgery Salam (CUSTOM) Colonoscopy Care After Surgery Please read the instructions outlined below and refer to this sheet in the next few weeks. These discharge instructions provide you with general information on caring for yourself after you leave thespital. Your doctor may also give you specific [...] Heavy or fried foods are harder to digestand may make you feel nauseated (sick to [...] severe or gets worse throughout the day. 03/29/2024 10:50:34 Diverticulosis MAGR (CUSTOM) Diverticulosis Many people have small pouches in [...] colon so that bowel contents can move througheasily. You should eat 20 to 35 grams [...] corn, and seeds. This has not been foundto be true. If you find that certain [...] unsweetened, w/added ascorbic acid 1 cup 0.5 [place] 1 cup 0.7 Vegetables Cooked Green beans 1 cup 4.0 Carrots 1/2 cup sliced 2.3 Peas 1 cup 8.8 Potato (baked, with skin) 1 medium potato 3.8 Raw [place] (with peel) 1 cucumber 1.5 Lettuce 1 [...] 8.7 Peanuts 1/2 cup 7.9 Chart from In [facility] 2013. SEEK IMMEDIATE MEDICAL CARE IF: You develop abdominal (belly) pain. An oral temperature above _ 101 F__develops. Repeated vomiting occurs. Blood is being passed in stools (bright red or black tarry stools). You develop any bowel problems or changes which you have not had before. Extra Information: To learn how much fiber and other nutrients are in different foods, visit the [place] Department of Agriculture (USDA) National Nutrient Database at: http://www.Exit41.usda.gov/fnic/foodcomp/search/ Created using data from the USDA National Nutrient Database for Standard Reference. Available at http://www.Exit41.usda.gov/fnic/foodcomp/search/. Information adapted from: ExitCare Patient Information 2010 [employer]. [place] [employer] 2013 http://www.Venuemob/contents/xmqihdquibva-suyqial-urydaw-the-basics 03/29/2024 10:50:33 Colon Polyps Colon Polyps Colon polyps are tissue growths inside the colon, which is part of the large intestine. They are one of the types of polyps that can grow in the body. A polyp may be a round bump or a mushroom-shapedgrowth. You could have one polyp or more than one. Most colon polyps are noncancerous (benign). However, some colon polyps can become cancerous over time. Finding and removing the polyps early can help prevent this. What are the causes? The exact cause of colon polyps is not known. What increases the risk? The following factors may make you more likely to develop this condition: Having a family history of colorectal cancer or colon polyps. Being older than 45 years of age. Being younger than 45 years of age and having a significant family history of colorectal cancer or colon polyps or a genetic condition that puts you at higher risk of getting colon polyps. Having inflammatory bowel disease, such as ulcerative colitis or Crohn's disease. Having certain conditions passed from parent to child (hereditary conditions), such as: ?Familial adenomatous polyposis (FAP). ?Gooden syndrome. ?Turcot syndrome. ?Peutz Jeghers syndrome. ?MUTYH-associated polyposis (MAP). Being overweight. Certain lifestyle factors. These include smoking cigarettes, drinking too much alcohol, not gettingenough exercise, and eating a diet that is high in fat and red meat and low in fiber. Having had childhood cancer that was treated with radiation of the abdomen. What are the signs or symptoms? Many times, there are no symptoms. If you have symptoms, they may include: Blood coming from the rectum during a bowel movement. Blood in the stool (feces). The blood may be bright red or very dark in color. Pain in the abdomen. A change in bowel habits, such as [...] these instructions at home: Eating and drinking Eat foods that are high in fiber, such as fruits, vegetables, and whole grains. Eat foods that are high in calcium and vitamin D, such as milk, cheese, yogurt, eggs, liver, fish, and broccoli. Limit foods that are high in fat, such as fried foods and desserts. Limit the amount of red meat, precooked or cured meat, or other processed meat that you eat, such as hot dogs, sausages, patel, or meat loaves. Limit sugary drinks. Lifestyle Maintain a healthy weight, or lose weight if recommended by your health care provider. Exercise every day or as told by your health care provider. Do not use any products that contain nicotine or tobacco, such as cigarettes, e- cigarettes, and chewing tobacco. If you need help quitting, ask your health care provider. Do not drink alcohol if: ?Your health care provider tells you not to drink. ?You are , may be , or are planning to become . If you drink alcohol: ?Limit how much you use to: ?0 1 drink a day for women. ?0 2 drinks a day for men. ?Know how much alcohol is in your drink. In the [place] one drink equals one 12 oz bottle of beer (355 mL), one 5 oz glass of wine (148 mL), or one 1 oz glass of hard liquor (44 mL). General instructions Take jeev-pmy-evezxbz and prescription medicines only as told by your health care provider. Keep all follow-up visits. This is important. This includes having regularly scheduled colonoscopies. Talk to your health care provider about when you need a colonoscopy. Contact a health care provider if: You have new or worsening bleeding during a bowel movement. You have new or increased blood in your stool. You have a change in bowel habits. You lose weight for no known reason. Summary Colon polyps are tissue growths inside the colon, which is part of the large intestine. They are one type of polyp that can grow in the body. Most colon polyps are noncancerous (benign), but some can become cancerous over time. This condition is diagnosed with a colonoscopy. This condition is treated by removing any polyps that are found. Most polyps can be removed during a colonoscopy. This information is not intended to replace advice given to you by your health care provider. Make sure you discuss any questions you have with your health care provider. Document Revised: 05/29/2020 Document Reviewed: 05/29/2020 [employer] Patient Education 2023 Event 38 [employer]. Follow Up Care 03/22/2024 15:25:39 With:Dontae DA SILVA, Josseline Lorenzo [facility] Address: [address] [place] [address] [address] [place] [phone] When: Unknown Comments:office will call for follow up [facility] 02-05-2025 NoteProgress Note-Physician Patient: SHANIQUE CAMARGO Age: 68 years Sex: Female : 1955 Associated Diagnoses: None Author: Alex DA SILVA, Hayes Anton Postoperative Information Postoperative disposition: Postoperative disposition: To PACU. Optimetrix number: Optimetrix number [id number]. Anesthetic utilized: General. Health Status Allergies: Allergic [...] meets criteria ( From PACU to floor ).[facility]:Result Comment: Electronically Signed By: Alex DA SILVA, Hayes Anton\.br\Date and Time Signed: 03/29/2509:50 [id number] NotePatient Education - Text Colonoscopy Care After Surgery Please read the instructions outlined below and refer to this sheet in the next few weeks. These discharge instructions provide you with general information on caring for yourself after you leave thespital. Your doctor may also give you specific [...] Heavy or fried foods are harder to digestand may make you feel nauseated (sick to [...] colon so that bowel contents can move througheasily. You should eat 20 to 35 grams [...] corn, and seeds. This has not been foundto be true. If you find that certain [...] unsweetened, w/added ascorbic acid 1 cup 0.5 [place] 1 cup 0.7 Vegetables Cooked Green beans 1 cup 4.0 Carrots 1/2 cup sliced 2.3 Peas 1 cup 8.8 Potato (baked, with skin) 1 medium potato 3.8 Raw [place] (with peel) 1 cucumber 1.5 Lettuce 1 [...] 8.7 Peanuts 1/2 cup 7.9 Chart from UpToDate 2 (more content not included)...[facility] 03-29-2024 NoteProgress Note-Physician Patient: SHANIQUE CAMARGO Age: 68 years Sex: Female : 1955 Associated Diagnoses: None Author: Alex DA SILVA, Hayes Anton Preoperative Information Anesthesia history: Patient history: [...] 1 cap(s), Oral, Daily, # 30 cap(s), Refills(s)0, Pharmacy: [facility], 157.4, cm, 03/22/24 12:37:00 EST, Height/Length [...] All Problems Abdominal pain / SNOMED CT 31949391 / Confirmed Belching / SNOMED CT 724598038 / Confirmed Bleeding per rectum / SNOMED CT 228575963 / Confirmed BMI 28.0-28.9,adult / SNOMED CT 0430090267 / Confirmed Epigastric pain / SNOMED CT 301090264 / Confirmed Family history of colon cancer / SNOMED CT 515079157 / Confirmed Femoral hernia of left side / SNOMED CT 9333925545 / Confirmed GERD (gastroesophageal reflux disease) / SNOMED CT 936476140 / Confirmed Irreducible left inguinal hernia / SNOMED CT 9050085027 / Confirmed Irritable bowel syndrome with constipation / SNOMED CT 4587825463 / Confirmed Lipoma of skin / SNOMED CT 580759473 / Confirmed Osteoporosis / SNOMED CT 745840084 / Confirmed Overweight / SNOMED CT 621215320 / Confirmed Periumbilical pain / SNOMED CT 6284525031 / Confirmed S/P cholecystectomy / SNOMED CT 2845961273 / Confirmed Sigmoid diverticulosis / SNOMED CT 4921919363 / Confirmed Straining during bowel movements / SNOMED CT 25763593 / Confirmed Resolved: COVID-19 virus detected / SNOMED CT 6719797668 Resolved: Cystitis, acute / SNOMED CT 305961499 Resolved: Encounter for screening colonoscopy / SNOMED CT 767721095 Resolved: FH: cholecystectomy / SNOMED CT 4520063177 Canceled: Diverticular disease / SNOMED CT 6284250610 Canceled: Left inguinal hernia / SNOMED CT 939357787 Canceled: Mass of left inguinal region / SNOMED CT 5783271112, Active Problems (17) Abdominal pain Belching Bleeding per rectum BMI 28.0-28.9,adult Epigastric pain Family history of colon cancer Femoral hernia of left side GERD (gastroesophageal reflux disease) Irreducible left inguinal hernia Irritable bowel syndrome with constipation Lipoma of skin Osteoporosis Overweight Periumbilical pain S/P cholecystectomy Sigmoid diverticulosis Straining during bowel movements Histories Past Medical History: Resolved Encounter for screening colonoscopy (869107292): Resolved. Cystitis, acute (807379241): Resolved. COVID-19 virus detected (1672312245): Resolved. FH: cholecystectomy (5536275979): Resolved. Procedure history: Gallbladder (57500346) on 12/14/2023 at 67 Years. Comments: 03/22/2024 12:33 EST - Carin Knight removal EGD - esophagogastroduodenoscopy (5629071217) on 11/24/2023 at 67 Years. Repair of left inguinal hernia (1270514667) on 09/04/2020 at 64 Years. Colonoscopy and biopsy of colon ([id number]) on 04/21/2019 at 63 Years. Comments: 04/26/2019 13:2 (more content not included)...[facility]Comment on above:Result Comment: Electronically Signed By: Alex DA SILVA, Hayes Anton\.br\Date and Time Signed: 03/29/2508:54 [id number] History of Present illness Narrative* Jatin Arvizu DO - 12/27/2023 1:00 PM EST General Surgery H&P Shanique Camargo 1955 Shanique [...] to work with lifting restrictions mentioned above. Foll ow up as needed. Thank you, Reese Arvizu DO documented in this encounterResearch Medical Center-Brookside [id number] History of Present illness Narrative* Jatin Arvizu DO - 12/06/2023 11:00 AM EDT General Surgery H&P Shanique Camargo 1955 Shanique Camargo is a 67 y.o. female presents with chief complaint of Abdominal Pain (Patient presentswith abdominal pain and flank pain. Since August. [...] at patient's earliest convenience. Thank you, Reese Arvizu DO documented in this encounterResearch Medical Center-Brookside [id number] NoteGeneral Surgery Office/Clinic Note Chief Complaint consultation for GERD HPI Staff 67 year old female presents on consultation from Dr. Yoon for abdominal pain. Reports experiencing intermittent generalized abdominal pain for 2-3 months. Describes pain as burning and on occasion, anache/soreness. States this started after taking daily NSAID for approximately one month. Verbalizedintermittent nausea, primarily in the AM. Reports excessive [...] eating acidic/spicy foods; had been on NSAIDs forseveral months prior to symptoms, now discontinue them; [...] swallowing difficulties, no hearing loss, no ear infection(s),no nose bleeds. Cardiovascular: normal blood pressure, no [...] mg Dis Tab, 4 (more content not included)...[facility] GeneralComment on above:Result Comment: Electronically Signed By: CASEY DA SILVA, Hayes Goodwin\Date and Time Signed: 11/16/23 15:49 [id number] NotePROCEDURE: XR HAND RT MIN 3V COMPARISON: 07/12/2020 hand HISTORY: Pain in right thumb FINDINGS: BONES:No acute fracture or dislocation. 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 No visible soft tissue swelling. EFFUSION:None visible. OTHER: Negative. IMPRESSION: Degenerative changes, no acute abnormality Electronically authenticated by: EDMOND MEANS Date: 2021-03-10 13:48[facility]07-14-2021 NoteOPERATIVE NOTE OPERATION DATE: 09-04-20 ANESTHETIC:General endotracheal as [...] Recovery Room in good condition. cc:Dr. Yoon. [facility] Signed and Approved by: DR HAYES PEÑA . 09/06/2020 08:06:00[facility]05-21-2021 NotePROCEDURE: XR HAND TERA MIN 3V HISTORY: Pain ; dog bite COMPARISON: None. FINDINGS: BONES:No fracture, dislocation, bone lesion. Moderate marked degenerative changes of the left first carpal-metacarpal joint. Multifocal mild degenerative changes bilaterally. SOFT TISSUES:No visible soft tissue swelling. EFFUSION:None visible. OTHER: Negative. IMPRESSION: 1. No radiopaque foreign body. 2. Degenerative changes. No acute bone abnormality. Electronically authenticated by: ALLEY ALLEN Date: 2020-07-12 13:58[facility] No data available for this section [facility] Evaluation + Plan note Future Appointments Appointment Date:03/29/2024 10:30:00 AM Scheduled Provider: Location[facility] Appointment Type:Surgery FT Appointment Date:04/10/2024 01:30:00 PM Scheduled Provider:Josseline Diggs MD Location:[facility] Appointment Type:[facility] Follow Up [facility] Evaluation noteNo assessment information available [facility] Work Phone: Evaluation note* Diagnosis Biliary dyskinesia- Primary Other specified disorder of gallbladder documented in this encounter [facility]* Diagnosis Status post cholecystectomy- Primary Other acquired absence of organ documented in this encounter [facility] Discharge instructions No data available for this section [facility] Progress note No data available for this section [facility] Reason for referral (narrative) , RUQ pain after cholecystectomy- Dr Gee- EUS Referred by: Josseline Diggs MD [facility] Summary Purpose Family History No Family History Records Found No data available for this section No Family History Records FoundNo Family History Records Found No data available for this section No data available for this section No [...] and content) DATE CREATED AUTHOR 07/12/2021 [facility] DATE CREATED AUTHOR AUTHOR'S ORGANIZ ATION 12/22/2023 [facility] DATE CREATED AUTHOR AUTHOR'S ORGANIZ ATION 12/28/2023 [facility] DATE CREATED AUTHOR AUTHOR'S ORGANIZ ATION 04/04/2024 [facility] DATE CREATED AUTHOR AUTHOR'S ORGANIZ ATION 04/05/2024 [facility] DATE CREATED AUTHOR AUTHOR'S ORGANIZ ATION 04/14/2024 [facility] DATE CREATED AUTHOR AUTHOR'S ORGANIZ ATION 05/16/2024 [facility] Care Teams (unrecognized sec tion and content) Team Status: Active Member Role Status Dates Katelyn Yoon MD Primary Care Provider Active Team Status: Inactive Member Role Status Dates Katelyn Yoon MD Primary Care Provider Active Start: September 14, 2023 End: September 14, 2023 Jas Kelly DO Attending Provider Active S tart: September 14, 2023 End: September 14, 2023 [employer] Relationship Specialty Start Date End Date Katelyn Yoon MD [address] [place] [address] PCP - General Family Medicine 12/06/23 [employer] Operator Relationship Specialty Start Date End Date Katelyn Yoon MD [address] [place] [address] PCP - General Family Medicine 12/06/23 Team Status: Inactive Member Role Status Dates Jatin Arvizu DO Attending Provider Active Star t: December 14, 2023 End: December 14, 2023 [employer]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 [employer] provides no warranty or guarantee of the accuracy or completeness of information in this document.
--- NOTE | 2024-08-10 07:40 | XR_ITS ---
[facility] [place] [id number] Patient Name: MARY JO ROBLES MRN: [id number] date: 1955 Sex: F Assigned Patient Location: ER Current Patient Location: ER Accession/Order Number: [id number] Exam Date: 08/10/2024 08:06 Report Date: 08/10/2024 08:08 At the request of: MENA PAULINO MD Procedure: XR knee RT 3V RIGHT KNEE - 3 views COMPARISON: None CLINICAL DATA: Right knee pain. Previous hemiarthroplasty. AP, lateral and internal oblique views were obtained. There is osteopenia. There is prior medial knee hemiarthroplasty. No acute fracture or dislocation is identified. There is marginal spurring at the lateral and patellofemoral joint compartments. There might be a trace amount joint fluid. No focal soft tissue swelling is noted. XR/XR knee RT 3V IMPRESSION: OSTEOPENIA, POSTOPERATIVE AND DEGENERATIVE CHANGES. NO ACUTE BONY FINDINGS. Impression dictated by: Xiomara Mckoy M.D. 08/10/2024 8:08 AM Dictation Location: [place] [address] Electronically authenticated by: [id number] Y Date: 08/10/2024 08:08
--- NOTE | 2024-08-10 07:44 | PC.NURSE ---
no redness, bruising or swelling to right knee. pt ambulated to ER Rm 4 and call light in reach
--- NOTE | 2024-08-10 11:15 | ED.EXTPRO1 ---
HPI - Extremity Problem General Chief complaint: Extremity Problem, Nontraumatic Stated complaint: R KNEE PAINS Time Seen by Provider: 08/10/24 07:37 Source: patient Mode of arrival: walk-in History of Present Illness HPI Narrative: The patient is a 68 years old female is coming to the ER with right knee pain, he mentioned that she have a history of knee replacement a while ago and she is worried because yesterday when she bent to get something from the floor she started having more pain in the right knee when she is walking in certain position, The patient denies any significant pain at the moment but she is wondering if she needs an x-ray just to make sure that the prosthesis is intact Related Data Home Medications ?Medication ?Instructions ?Recorded ?Confirmed hyoscyamine 0.15 mg tablet 0.125 mg PO .[id number] PRN abdominal 11/19/23 01/07/24 discomfort ondansetron 4 mg disintegrating 4 mg PO TID PRN nausea and vomiting 11/19/23 01/07/24 tablet pantoprazole 40 mg tablet,delayed 40 mg PO DAILY 11/19/23 01/07/24 release (Protonix) polyethylene glycol 3350 17 gram 17 g PO DAILY 12/10/23 01/07/24 oral powder packet (Miralax) Previous Rx's ?Medication ?Instructions ?Recorded dicyclomine 20 mg tablet 20 mg PO TID PRN abdominal pain #7 01/07/24 tabs promethazine 25 mg rectal 25 mg OH Q6H PRN nausea and 01/07/24 suppository vomiting #6 ea Allergies Allergy/AdvReac Type Severity Reaction Status Date / Time levofloxacin Allergy Intermediate myalgia Verified 11/19/23 11:56 NSAIDS (Non-Steroidal Allergy Abdominal Verified 12/10/23 13:48 Anti-Inflamma Pain sucralfate Allergy constipatio Verified 12/10/23 13:48 n Review of Systems ROS Status of ROS 10 or more systems reviewed and unremarkable except as noted in history and below [facility] Medical History (Updated 08/10/24 @ 08:31 by Nikki Lieberman MD) Biliary dyskinesia ?K82.8 - Other specified diseases of gallbladder (ICD-10) Sciatica ?M54.30 - Sciatica, unspecified side (ICD-10) Arthritis ?M19.90 - Unspecified osteoarthritis, unspecified site (ICD-10) COVID-19 ?U07.1 - COVID-19 (ICD-10) Headache ?R51.9 - Headache, unspecified (ICD-10) Postoperative nausea and vomiting ?R11.2 - Nausea with vomiting, unspecified (ICD-10) ?Z98.890 - Other specified postprocedural states (ICD-10) Delayed recovery from anesthesia Cystitis ?N30.90 - Cystitis, unspecified without hematuria (ICD-10) COVID ?U07.1 - COVID-19 (ICD-10) Sigmoid diverticulitis ?K57.32 - Diverticulitis of large intestine without perforation or abscess without bleeding (ICD-10) Periumbilical pain ?R10.33 - Periumbilical pain (ICD-10) Osteoporosis ?M81.0 - Age-related osteoporosis without current pathological fracture (ICD-10) Lipoma of skin ?D17.30 - Benign lipomatous neoplasm of skin and subcutaneous tissue of unspecified sites (ICD-10) Irreducible left inguinal hernia ?K40.30 - Unilateral inguinal hernia, with obstruction, without gangrene, not specified as recurrent (ICD-10) GERD (gastroesophageal reflux disease) ?K21.9 - Gastro-esophageal reflux disease without esophagitis (ICD-10) Femoral hernia of left side ?K41.90 - Unilateral femoral hernia, without obstruction or gangrene, not specified as recurrent (ICD-10) Epigastric pain ?R10.13 - Epigastric pain (ICD-10) Surgical History (Updated 12/10/23 @ 14:03 by Kala Asencio NP) History of tubal ligation ?Z98.51 - Tubal ligation status (ICD-10) History of total abdominal hysterectomy ?Z90.710 - Acquired absence of both cervix and uterus (ICD-10) Hx of tonsillectomy ?Z90.89 - Acquired absence of other organs (ICD-10) History of carpal tunnel release ?Z98.890 - Other specified postprocedural states (ICD-10) History of knee replacement ?Z96.659 - Presence of unspecified artificial knee joint (ICD-10) H/O left inguinal hernia repair ?Z98.890 - Other specified postprocedural states (ICD-10) ?Z87.19 - Personal history of other diseases of the digestive system (ICD-10) H/O colonoscopy ?Z98.890 - Other specified postprocedural states (ICD-10) Family History (Updated 11/19/23 @ 11:56 by Joellen Sharp) Mother Family history of COPD (chronic obstructive pulmonary disease) Family history of hypertension Family history of cancer Father Family history of COPD (chronic obstructive pulmonary disease) Social History (Updated 11/22/23 @ 10:49 by Laurie Ansari RN) Within the past year, how often did you have a drink containing alcohol: never Score interpretation: A score less than 3 is consistent with normal alcohol consumption. Smoking status: Never smoker Non-prescribed substance use: denies use Previous occupational history: [employer] Highest level of school completed/degree received: 10th grade Little interest or pleasure in doing things: not at all Feeling down, depressed, or hopeless: not at all Exam Narrative Exam Narrative: Nurses notes and vital signs reviewed and patient is not hypoxic. General: Well-appearing and in no apparent distress. Skin: Warm, dry, no pallor noted. No rash. Head: Normocephalic, atraumatic. Neck: Supple, non-tender. Eye: Pupils are equal, round and EOMI. No scleral icterus. Ears, Nose, Mouth, and Throat: TM are clear, no nasal mucosal hypertrophy. Oral mucosa is moist, no posterior oropharynx erythema, uvula is mid-line Cardiovascular: Regular Rate and Rhythm without murmur, gallop or rub. Respiratory: No accessory muscle use or respiratory distress. Lungs are clear to auscultation, no wheezing, rales or rhonchi Chest Wall: no tenderness Back: No midline thoracic or lumbar vertebral tenderness. No CVA tenderness Musculoskeletal: normal ROM, no calf or popliteal tenderness, no lower extremity edema/swelling, there is tenderness upon palpation of the tibia tuberosity mildly mostly subjective GI: Abdomen is soft, non-distended. Normal bowel sounds. No masses appreciated. No tenderness to palpation. No rebound, guarding, or rigidity noted. Neurological: A&O x4. No cranial nerve dysfunction observed. Constitutional Vital Signs, click to edit/add: Last Vital Signs Temp 98.1 F 08/10/24 07:26 Pulse 68 08/10/24 07:26 Resp 18 08/10/24 07:26 BP 137/89 08/10/24 07:26 Pulse Ox 100 08/10/24 07:26 O2 Del Method Room Air 08/10/24 07:26 Course Vital Signs Vital signs: Vital Signs Temperature 98.1 F 08/10/24 07:26 Pulse Rate 68 08/10/24 07:26 Respiratory Rate 18 08/10/24 07:26 Blood Pressure 137/89 08/10/24 07:26 Pulse Oximetry 100 08/10/24 07:26 Oxygen Delivery Method Room Air 08/10/24 07:26 Temperature 98.1 F 08/10/24 07:26 Pulse Rate 68 08/10/24 07:26 Respiratory Rate 18 08/10/24 07:26 Blood Pressure 137/89 08/10/24 07:26 Pulse Oximetry 100 08/10/24 07:26 Oxygen Delivery Method Room Air 08/10/24 07:26 MDM - Extremity (Nontraumatic) MDM Narrative Medical decision making narrative: The patient x-ray of the right knee showed no acute significant pathology Patient to continue taking Tylenol for pain Lex wrap applied The patient is to follow up with primary care physician in next 2-3 days or to return to the emergency department should any of the signs or symptoms worsen or new symptoms develop. The patient agrees with the following Diagnosis and Treatment plan and the patient will be discharged home. Discharge Plan Discharge Chief Complaint: Extremity Problem, Nontraumatic Clinical Impression: Knee osteoarthritis Patient Disposition: Home, Self-Care Time of Disposition Decision: 08:31 Condition: Good Mode of Transportation: Private Vehicle Prescriptions / Home Meds: No Action hyoscyamine 0.15 mg tablet 0.125 mg PO .[id number] PRN (Reason: abdominal discomfort) ondansetron 4 mg tablet,disintegrating 4 mg PO TID PRN (Reason: nausea and vomiting) pantoprazole [Protonix] 40 mg tablet,delayed release (DR/EC) 40 mg PO DAILY polyethylene glycol 3350 [Miralax] 17 gram powder in packet 17 g PO DAILY promethazine 25 mg suppository 25 mg OH Q6H PRN (Reason: nausea and vomiting) Qty: 6 0RF dicyclomine 20 mg tablet 20 mg PO TID PRN (Reason: abdominal pain) Qty: 7 0RF Print Language: Romansh Instructions: Osteoarthritis (DC) Referrals: Merrill Kaufman MD [Primary Care Provider, Family Practice] - 1 week Discharge Date/Time: 08/10/24 08:44
== END 2024-08-10 08:44 | disposition home or self-care (01) ==
PROVIDERS: Emergency Provider Emergency Medicine; PCP Family Medicine
DX: M17.11 Unilateral primary osteoarthritis, right knee (principal); M25.561 Pain in right knee; Z96.651 Presence of right artificial knee joint
CPT/HCPCS: 73562; 99283

== ENCOUNTER 2024-08-29 07:31 | Outpatient (OUT) | payer MEDICARE, SELFPAY ==
--- OUTSIDE RECORDS SUMMARY | 2021-06-18 09:20 | XMS_ITS | Continuity of Care Document ---
Author Organization [facility] o Address [address] [place] [address] Phone Care Team Providers Care Ladle Puller Name Role Phone Angel Ulrich MD, Doroteo Unavailable Unavailab le Allergies, Adverse Reactions, Alerts Substance Reaction Status Criticality No Known Allergies Active No Inform ation Medications Medication Instructions Dosage Effective Dates (start - stop) Status Comments No Drug Therapy Prescribed Procedures Procedure Date Office/outpatient visit,[facility] 2021 X-ray exam of knee, 3 views Advance Directives Directive Yes / No Effective Date File Name No Information Encounters Encounter Description Practice Location Reason(s) For Visit Diagnoses Date Provider Providers Copied on Encounter Office/outpat ient visit,[facility] [place], [address] [place], [address], [place] tel:[phone] JIS [place] Primary osteoarthritis of right kneePrimary osteoarthritis of left kneeHistory of arthroplasty of left kneeHistory of arthroplasty of right kneeHistory of arthroplasty of left kneeHistory of arthroplasty of right kneePrimary osteoarthritis of left kneePrimary osteoarthritis of right kneeBilateral primary osteoarthritis of kneePresence of artificial knee joint, bilateral May- 2 Angel Sadler. [address], [address], [place], [place], [id number] , [place]. tel:[phone] Referring Provider: Doroteo Ulrich V, [address], [place], [address] . tel:[phone] Family History Family Member Type Diagnosis Age At Onset No Information Payers Payer name Insurance type Covered constitution party ID Kenyon kelly(jean claude Redman Medicare - [id number] Social History Type Description Quantity Date Captured [...]
--- OUTSIDE RECORDS SUMMARY | 2024-05-10 06:59 | XMS_ITS ---
Author Name Auto Generated Organization OHIP Care Team Providers Care Boat Out[employer] Name Role Phone Jatin Hayden Admitting Unavailable Jatin Hayden Attending Unavailable Jas Kelly Admitting Unavailable Jas Kelly Attending Unavailable Katelyn Kaufman Primary Care Unavailable JATIN HAYDEN Attending Unavailable KATELYN KAUFMAN Referring Unavailable JATIN HAYDEN Attending Unavailable Satinder Gamino Attending Unavaila Josseline Cutler AArpita Attending Unavailable Josseline Diggs AArpita Attending Unavailable Jovan BOLDEN Attending Unavailable Katelyn Kaufman Referring Unavailable Jovan BOLDEN Attending Unavailable Dontae Mohamad A. Attending Unavailable Modillon Mohamad A. Admitting Unavailable Modlilon Mohamad A. Referring Unavailable FAAWD PACHECO Admitting Unavailable FAWAD PACHECO Attending Unavailable KATELYN KAUFMAN Referring Unavailable PROBLEMS DATE TYPE CONDITION / CODE ATTENDING STATUS [facility] 05/10/2024 Admitting Diagnosis Disease of biliary tract, unspecified / K83.9(ICD-10) FAWAD PACHECO Active [facility] 05/10/2024 Admitting Diagnosis Right upper quadrant pain / R10.11(ICD-10) FAWAD PACHECO Active [facility] 05/10/2024 Admitting Diagnosis Chronic vascular disorders of intestine / K55.1(ICD-10) FAWAD PACHECO Active [facility] 09/14/2023 Unknown Sciatica, left side / M54.32(ICD-10) KellyJas Active [facility] PROCEDURES No Procedure Records Found RESULTS ANES Observed: 05/10/2024 9:12 AM Status: COMPLETED Source: [facility] Patient: Shanique Camargo Procedure Summary Date: 05/10/24 Room / Location: [facility] Invasive Surgery [place] [facility] Anesthesia Start: 809 Anesthesia Stop: 858 Procedure: EUS (UPPER) W/ EGD Diagnosis: Bile leak RUQ abdominal pain Intestinal angina Scheduled Providers: Fawad Pacheco MD; Christopher Álvarez MD; MAGALI Bernal Responsible Provider: Christopher Álvarez MD Anesthesia Type: MAC ASA Status: 2 Anesthesia Type: MAC Vitals Value Taken Time BP 114/71 05/10/24 0857 Temp 36.2 ???C (97.2 ???F) 05/10/24 0857 Pulse 74 05/10/24 0857 Resp 18 05/10/24 0857 SpO2 98 % 05/10/24 0857 Anesthesia Post Evaluation Patient location during evaluation: PACU Patient participation: complete - patient participated Level of consciousness: awake Pain score: 1 Pain management: adequate Airway patency: patent Cardiovascular status: acceptable Respiratory status: acceptable Patient is hemodynamically stable and is able to be discharged from PACU per anesthesia protocol. No notable events documented. HP Observed: 05/10/2024 8:45 AM Status: COMPLETED Source: [facility] History Of Present Illness Shanique Camargo is a 68 y.o. female presenting with complaint of mid abdominal pain that started in August 2023. The patient had HIDA scans at that time that revealed low ejection fraction for which she had laparoscopic cholecystectomy. The patient continues to have symptoms and states that her abdominal pain did not improve after cholecystectomy. She had an upper endoscopy performed and a colonoscopy within the last year. The colonoscopy revealed severe diverticulosis and the few small tubular adenomatous polyps. The upper endoscopy was reported to be unremarkable. The patient is scheduled to have an upper endoscopy and endoscopic ultrasound to assess the pancreaticobiliary system.Past Medical History She has a past medical history of Acute bronchitis, Delayed emergence from general anesthesia, Diverticulosis, Epigastric abdominal pain, GERD (gastroesophageal reflux disease), History of transfusion, Osteoarthritis, and Osteoporosis. Surgical History She has a past surgical history that includes Hysterectomy; Tonsillectomy; Carpal tunnel release; Knee surgery; Hernia repair; Upper gastrointestinal endoscopy; and Cholecystectomy. Social History She reports that she has never smoked. She has never used smokeless tobacco. She reports that she does not drink alcohol and does not use drugs. Family History No family history on file. Allergies Dicyclomine, Famotidine, Hyoscyamine, Levofloxacin, Nsaids (non-steroidal anti-inflammatory drug), Reglan [metoclopramide hcl], and Sucralfate Medications (Not in a hospital admission) Review of Systems Constitutional: Negative. Respiratory: Negative. Cardiovascular: Negative. Gastrointestinal: Positive for abdominal pain. Genitourinary: Negative. Skin: Negative. Last Recorded Vitals Visit Vitals BP 123/75 Pulse 84 Temp 36.5 ???C (97.7 ???F) (Temporal) Resp 19 Ht 1.549 m (5' 1 ) Wt 68.6 kg (151 lb 3.8 oz) SpO2 99% BMI 28.58 kg/m??? OB Status Hysterectomy Smoking Status Never BSA 1.72 m??? Physical Exam HEENT: Anicteric sclera, conjunctiva Chest: Unremarkable Heart: Unremarkable Abdomen: Soft, no tenderness Lower extremities: No edema Relevant Lab Results No results found for: NA , K , CL , CO2 , BUN , CREATININE , GLUCOSE , CALCIUM , ANIONGAP , EGFR , BCR Relevant Imaging Results No image results found. Assessment/Plan Shanique Camargo is a 68 y.o. female presenting with complaint of mid abdominal pain that started in August 2023. The patient had HIDA scans at that time that revealed low ejection fraction for which she had laparoscopic cholecystectomy. The patient continues to have symptoms and states that her abdominal pain did not improve after cholecystectomy. She had an upper endoscopy performed and a colonoscopy within the last year. The colonoscopy revealed severe diverticulosis and the few small tubular adenomatous polyps. The upper endoscopy was reported to be unremarkable. The patient is scheduled to have an upper endoscopy and endoscopic ultrasound to assess the pancreaticobiliary system. [id number] Observed: 05/10/2024 8:45 AM Status: COMPLETED Source: [facility] Patient: Shanique Camargo Procedure Summary Date: 05/10/24 Room / Location: [facility] Endoscopy Anesthesia Start: 0810 Anesthesia Stop: Procedure: EUS (UPPER) W/ EGD Diagnosis: Bile leak RUQ abdominal pain Intestinal angina Scheduled Providers: Fawad Pacheco MD; Christopher Álvarez MD; MAGALI Bernal Responsible Provider: Christopher Álvarez MD Anesthesia Type: MAC ASA Status: 2 Anesthesia Post Transport Note Transport to: [place] PAC[facility] O2 Route: room air Patient Monitor: direct observation Transport: uneventful Patient condition is: stable HISTOLOGY - TISSUE EXAM Collected: 04/22 8:27 AM Status: UNK Source: [facility] TYPE CODE TESTS RESULT OUT OF RANGE REFERENCE UNITS PATHOLOGY 1499 LAB AP CASE REPORT Result Comment: Surgical Pat hology Case: [id number] Authorizing Provider: Fawad Pacheco MD Collected: 05/10/2024 0827 Ordering Location: [facility] Received: 05/10/2024 1153 [facility] [place] [facility] Pathologist: Elena Oakley MD Specimens: A) - Small Intestine, Duodenum, r/o duodenal B) - Gastric, r/o h. pylori PATHOLOGY 34 LAB AP REPORT FINAL DIAGNOSIS NARRATIVE Result Comment: A. Small bow el, duodenum, biopsy: - Duodenal mucosa with features suggestive of peptic injury. - No features of celiac disease noted. B. Stomach, biopsy: - Chronic gastritis with reactive changes. - Immunostain for Helicobacter pylori is negative. - No evidence of intestinal metaplasia or dysplasia. OLOGY 29 LAB AP CLINICAL INFORMATION Order Diagnoses Result Comment: K83.9 - Bile leak [ICD-10-CM] R10.11 - RUQ abdominal pain [ICD-10-CM] K55.1 - Intestinal angina [ICD-10-CM] PATHOLOGY [id number] LAB AP GROSS DESCRIPTION Result Comment: A. Small Int estine, Duodenum. The specimen is received in formalin labeled Shanique Canter and duodenum tissue. It consists of 6 pieces of her-pink irregular mucosal tissue ranging from 0.2 cm to 0.4 cm in greatest dimension. The specimen is submitted in toto in 1 cassette. Candis Mckenna, Pathologists' Setter [employer] student Abdirahman Chambers, Pathologists' AssistantB. Gastric. The specimen is received in formalin labeled Shanique Canter and gastric tissue. It consists of 7 pieces of her-pink irregular mucosal tissue ranging from 0.2 cm to 0.5 cm in greatest dimension. The specimen is submitted in toto in 1 cassette. Candis Mckenna Pathologists' Setter [employer] student Abdirahman Chambers, Pathologists' Setter [employer] PATHOLOGY 32 LAB AP MICROSCOPIC DESCRIPTION Microscopic examination performed. PATHOLOGY 769 LAB AP ASR DISCLAIMER The interpretation of this case included the use of immunohistochemistry or special stains. These tests have not been cleared or approved by the U.S. Food and Drug Administration. The FDA has determined that such clearance or approval is not necessary. These tests are used for clinical purposes and should not be regarded as investigational or for research. This laboratory is certified to perform high complexity testing under the Clinical Laboratory Improvement Amendments of 1998. Performed By: #### [id number] # ### [facility] ([facility]) [address] [place] [address] POCT GLUCOSE METER UNSOLICIT ED RESULTS Collected: 05/10/2024 7:24 AM Status: UNK [facility]: [facility] Order Comment: Waived Testin g in the ED is performed under the ED CLIA certificate #[id number]. TYPE CODE TESTS RESULT OUT OF RANGE REFERENCE UNITS LAB 885 POCT GLUCOSE 101 70-105 mg/dL Result Comment: [email or web address] Performed By: #### [id number] #### [facility] ([facility]) [address] [place] [address] ANES Observed: 05/10/2024 7:22 AM Status: COMPLETED Source: [facility] Patient: Shanique Camargo Procedure Information Date/Time: 05/10/24 0845 Scheduled providers: Fawad Pacheco MD; Christopher Álvarez MD; MAGALI Bernal Procedure: EUS (UPPER) W/ EGD Location: [facility] Invasive [facility] [place] [facility] Relevant Problems Anesthesia (within normal limits) Cardio Denies chest pain/SOB. No previous cardiac interventions. Endo BMI 28, FBS 101 mg/dl /Renal (within normal limits) Neuro/Psych (within normal limits) Pulmonary (within normal limits) Clinical information reviewed: Allergies Meds Med Hx Surg Hx OB Status Fam Hx Past Medical History: Diagnosis Date Acute bronchitis Delayed emergence from general anesthesia Diverticulosis Epigastric abdominal pain GERD (gastroesophageal reflux disease) History of transfusion Osteoarthritis Osteoporosis Physical Exam Airway Mallampati: II TM distance: >3 FB Neck ROM: full Cardiovascular - normal exam Dental - normal exam Pulmonary - normal exam Abdominal Anesthesia Plan ASA 2 MAC The patient is not a current smoker. Patient was not previously instructed to abstain from smoking on day of procedure. Patient did not smoke on day of procedure. intravenous induction Anesthetic plan and risks discussed with patient. Plan discussed with CAA. Additional Equipment Requests PREP FOR PROCEDURE Observed: 05/01/2024 12:00 AM Status: COMPLETED Source: [facility] [id number] Shanique Camargo [birth year] F Date Provider Department Center 05/01/2024 FAWAD VANCE [facility] No family history on file AMBULATORY VISIT SUMMARY Observed: 04/12 1:50 PM Status: F Source: [facility] Ambulatory Visit Summary CYRILRUPERTSHANIQUE :1955 Visit Date:04/12/2024 Ambulatory Visit Instructions Your Diagnosis Abdominal pain GERD (gastroesophageal reflux disease) Family history of colon cancer Irritable bowel syndrome with constipation Belching Straining during bowel movements Bleeding per rectum S/P cholecystectomy Your Care Team Attending Physician - Josseline Diggs MD Primary Care Physician - Katelyn Kaufman MD This Is Your Medications List Contact prescribing physician if questions or concerns cefdinir pantoprazole (Protonix 40 mg Tab-DR) polyethylene glycol 3350 (MiraLax) Procedures Performed Colonoscopy (03/29/2024), Gallbladder (12/14/2023), EGD - esophagogastroduodenoscopy (11/24/2023), Repair of left inguinal hernia (09/04/2020), Colonoscopy and biopsy of colon (04/21/2019), Colonoscopy normal (02/23/2004), Bilateral replacement of knee joints, Release of carpal tunnel for median nerve decompression, Tonsillectomy, primary or secondary; younger than age 12, Total abdominal hysterectomy. Discharge Vitals Heart Rate (Peripheral) 80 Respiratory Rate 14 Blood Pressure 130/84 Height 157 cm Height 62 in Weight 68 kg Weight 149.914 lb BMI 27.59 Medications What How Much When Instructions Unchanged cefdinir See instructions unsure of dosage, takes 1 by mouth BID Oral Contact prescribing physician if questions or concerns Unchanged pantoprazole (Protonix 40 mg Tab-DR) 1 Tablets By Mouth Every day Contact prescribing physician if questions or concerns Unchanged polyethylene glycol 3350 (MiraLax) 1 Packets By Mouth Every day Contact prescribing physician if questions or concerns Allergies Reglan (Sleep disturbance, Chest pain) dicyclomine (Abdominal pain) famotidine (Abdominal pain) hyoscyamine (Abdominal pain) Levaquin (Myalgia) NSAIDs (Unknown, Abdominal Pain) sucralfate (Constipation, Unknown) Problems Ongoing - Any problem that you are currently receiving treatment for. Abdominal pain Belching Bleeding per rectum BMI 28.0-28.9,adult Epigastric pain Family history of colon cancer Femoral hernia of left side GERD (gastroesophageal reflux disease) Irreducible left inguinal hernia Irritable bowel syndrome with constipation Lipoma of skin Osteoporosis Overweight Periumbilical pain S/P cholecystectomy Sigmoid diverticulosis Straining during bowel movements Historical - Any problem that you are no longer receiving treatment for. COVID-19 virus detected Cystitis, acute Encounter for screening colonoscopy FH: cholecystectomy Patient Survey You may receive a survey via text or e-mail asking about your office visit. Please share your experience with us by completing your survey. We appreciate your feedback and thank you for choosing us for your care. GASTROENTEROLOGY OFFICE/CLINIC NOTE Obse rved: 04/12/2024 1:49 PM Status: F Source: [facility] Gastroenterology Office/Clin ic Note Chief Complaint follow up to colonoscopy HPI Staff Patient is a(n) 68 year old female who presents today for a follow up to Colonoscopy on 03/29/24. Dexilant helping with acid reflux? Not taking because insurance $400 a month. Any recent rectal bleeding? Anusol suppositories effective? Did not do suppositories because they were $150 and is not having the bleeding, she did not know if there was anything else. Still having abdominal pain. Repeat colonoscopy in 3 years, recall placed. Fhx of colon cancer- mother. Denies blood thinners. Denies GLP-1 agonists. Last visit w/Dr. Diggs: History of Present Illness I have reviewed HPI staff note, most recent labs and imaging, I agree with the above documentation with the following additions/exceptions : PT with bad reflux Protonix not helping gets belching after eating Going to the bathroom could be a problem softeners does not help much comes and goes moves her bowels every day, straining during BMs, no issues with incomplete evacuation h/o hysterectomy 35 years ago pt tried stool softeners and miralax miralax helped when she took it regular Assessment/Plan 1. Abdominal pain (R10.9: Unspecified abdominal pain) 2. GERD (gastroesophageal reflux disease) (K21.9: Gastro-esophageal reflux disease without esophagitis) Ordered: dexlansoprazole, 30 mg = 1 cap(s), Oral, Daily, # 30 cap(s), Refills(s) 0, Pharmacy: [id number], 157.4, cm, 03/22/24 12:37:00 EST, Height/Length Dosing, 70.1, kg, 03/22/24 12:37:00 EST, Weight Dosing Colonoscopy (Hospital Procedure) 3. Family history of colon cancer (Z80.0: Family history of malignant neoplasm of digestive organs) 4. Irritable bowel syndrome with constipation (K58.1: Irritable bowel syndrome with constipation) 5. Belching (R14.2: Eructation) 6. FH: cholecystectomy (Z83.79: Family history of other diseases of the digestive system) 7. Straining during bowel movements (R19.8: Other specified symptoms and signs involving the digestive system and abdomen) 8. Bleeding per rectum (K62.5: Hemorrhage of anus and rectum) 9. S/P cholecystectomy (Z90.49: Acquired absence of other specified parts of digestive tract) Advised to use squatty potty and massage the colon Advised to eat prunes and kiwi fruit Advised to use miralax and titrate to have 1-2 BM daily Schedule colonoscopy given family history of colon cancer and ongoing rectal bleeding Switch to Dexilant 30 mg daily Colonoscopy 03/29/24: Findings 1. External skin tags 2. 1 mm sessile polyp in the cecum status post resection using cold biopsy 3. Five mm sessile polyp seen in the transverse colon resected with cold snare completely 4. 5 mm sessile polyp in the descending colon status post resection using cold snare 5. Severe diverticulosis throughout the whole colon 6. Large internal hemorrhoids 7. Normal Terminal ileum Impression and Plan 3 colon polyps???removed as above Diverticulosis Internal hemorrhoids Anal skin tags Recommendations: - Repeat colonoscopy:: In 3 years. - Anusol suppositories for large hemorrhoids Pathology: Final Diagnosis (Verified) A: POLYP, CECUM, POLYPECTOMY: ??? COLONIC MUCOSA WITH LYMPHOID AGGREGATES. B: POLYP, TRANSVERSE COLON, POLYPECTOMY: ??? TUBULAR ADENOMA. C: POLYP, DESCENDING COLON, POLYPECTOMY: ??? TUBULAR ADENOMA. EGD w/ Nill 11/24/23 Normal EGD. NM hepatobiliary wo pharm 03/01/24: FINDINGS: LIVER: Normal, prompt and uniform radiotracer uptake and clearing. BILIARY DUCTS: Normal radioisotopic biliary excretion. GALLBLADDER: Not visualized consistent with known cholecystectomy INTESTINE: Normal with no evidence of common biliary ductal obstruction. IMPRESSION: No evidence of a biliary leak NM hepatobiliary w pharm 12/02/23: FINDINGS: LIVER: Slightly delayed but otherwise uniform radiotracer uptake and clearing. BILIARY DUCTS: Normal radioisotopic biliary excretion. GALLBLADDER: Normal filling, but only slight emptying. INTESTINE: Limited radiotracer within the bowel. But no complete obstruction of the common bile duct. EJECTION FRACTION: 20 % within 60 minutes. (Normal EF > 38%). IMPRESSION: 1. Abnormal gallbladder emptying suggestive of dyskinesia or ball-valve type obstruction. US abdomen 02/11/24: IMPRESSION: No significant abnormality in the current study. No significant interval change. CT abd/pel w 01/07/24: IMPRESSION: 1. No acute or suspicious abdominal findings to account for patient's symptoms. 2. Recent cholecystectomy. No acute or suspicious findings. 3. Colonic diverticulosis. CBC 03/06/24 White Blood Count: 8.5 Red Blood Count: 4.55 Hemoglobin: 13.7 Hematocrit: 42.5 Mean Corpuscular Volume: 93.4 Mean Corpuscular Hemoglobin: 30.1 Mean Corpuscular HGB Conc: 32.2 Red Cell Distribution Width: 12.3 Platelet Count: 260 Mean Platelet Volume: 10.7 Neutrophils Percent Auto: 61.7 Lymphocytes Percent Auto: 27.6 Monocytes Percent Auto: 9.1 Eosinophils Percent Auto: 0.9 Basophils Percent Auto: 0.5 Immature Granulocytes Pct Auto: 0.2 Neutrophils Absolute Auto: 5.2 Lymphocytes Absolute Auto: 2.3 Monocytes Absolute Auto: 0.8 Eosinophils Absolute Auto: 0.1 Basophils Absolute Auto: 0.0 Immature Granulocytes Abs Auto: 0.02 CMP 03/06/24 Sodium: 140 Potassium: 4.2 Chloride: 105 Carbon Dioxide: 29.3 Anion Gap: 9.9 Glucose: 70 Low Blood Urea Nitrogen: 15.0 Creatinine: 0.68 Estimated GFR ( Shireen: >60 Estimated GFR (Non- Isela: >60 BUN Creatinine Ratio: 22.1 Calcium: 9.3 Bilirubin Total: 0.2 Aspartate Amino Transferase: 17 Alanine Aminotransferase: 23 Alkaline Phosphatase: 80 Total Protein: 7.0 Albumin Level: 3.7 Globulin: 3.3 Albumin Globulin Ratio: 1.1 Amylase (03/06/24): 46 Lipase (03/06/24): 37.0 Review of Systems PHQ Score Initial Depression Screen Score: 0 SCORE All systems reviewed, negative except as mentioned above Physical Exam Vitals & Measurements HR: 80(Peripheral) RR: 14 BP: 130/84 HT: 62 in HT: 157 cm WT: 68 kg WT: 149.914 lb BMI: 27.59 I have reviewed HPI staff note, most recent labs and imaging, I agree with the above documentation with the following additions/exceptions : Pain still there in the upper abd could not get Dexilant ? incomplete derrell - partial derrell kate or green stool but occasional still takes miralax General: alert, no acute distress HEENT: atraumatic normocephalic Cardiovascular: regular rate and rhythm, normal peripheral perfusion Respiratory: Lungs CTA, respirations non labored Extremities: no deformity, no trauma Abdomen: Benign, soft, nontender nondistended Assessment/Plan 1. Abdominal pain (R10.9: Unspecified abdominal pain) Ordered: dexlansoprazole, 30 mg = 1 cap(s), Oral, Daily, # 30 cap(s), Refills(s) 0, Pharmacy: [facility], 157.4, cm, 03/22/24 12:37:00 EST, Height/Length Dosing, 70.1, kg, 03/22/24 12:37:00 EST, Weight Dosing 2. GERD (gastroesophageal reflux disease) (K21.9: Gastro-esophageal reflux disease without esophagitis) Ordered: dexlansoprazole, 30 mg = 1 cap(s), Oral, Daily, # 30 cap(s), Refills(s) 0, Pharmacy: [facility], 157.4, cm, 03/22/24 12:37:00 EST, Height/Length Dosing, 70.1, kg, 03/22/24 12:37:00 EST, Weight Dosing 3. Family history of colon cancer (Z80.0: Family history of malignant neoplasm of digestive organs) Ordered: dexlansoprazole, 30 mg = 1 cap(s), Oral, Daily, # 30 cap(s), Refills(s) 0, Pharmacy: [facility], 157.4, cm, 03/22/24 12:37:00 EST, Height/Length Dosing, 70.1, kg, 03/22/24 12:37:00 EST, Weight Dosing 4. Irritable bowel syndrome with constipation (K58.1: Irritable bowel syndrome with constipation) Ordered: dexlansoprazole, 30 mg = 1 cap(s), Oral, Daily, # 30 cap(s), Refills(s) 0, Pharmacy: [facility], 157.4, cm, 03/22/24 12:37:00 EST, Height/Length Dosing, 70.1, kg, 03/22/24 12:37:00 EST, Weight Dosing 5. Belching (R14.2: Eructation) Ordered: dexlansoprazole, 30 mg = 1 cap(s), Oral, Daily, # 30 cap(s), Refills(s) 0, Pharmacy: [facility], 157.4, cm, 03/22/24 12:37:00 EST, Height/Length Dosing, 70.1, kg, 03/22/24 12:37:00 EST, Weight Dosing 6. Straining during bowel movements (R19.8: Other specified symptoms and signs involving the digestive system and abdomen) 7. Bleeding per rectum (K62.5: Hemorrhage of anus and rectum) 8. S/P cholecystectomy (Z90.49: Acquired absence of other specified parts of digestive tract) Orders: hydrocortisone topical, 25 mg = 1 supp, Rectal, BID, X 14 day(s), # 28 supp, Refills(s) 0, Pharmacy: [facility], 157.4, cm, 03/29/24 9:47:00 EST, Height/Length Dosing, 70.1, kg, 03/29/24 9:47:00 EST, Weight Dosing Discontinue Dexilant and switch to rabeprazole 20 mg daily Heart failure to advanced endoscopy for endoscopic ultrasound to evaluate right upper quadrant pain after cholecystectomy and incomplete cholecystectomy Patient could not afford Anusol suppositories. Will try to switch to cream Patient might benefit from Carafate and Questran in the future Follow-up No qualifying data available Problem List/Past Medical History Ongoing Abdominal pain Belching Bleeding per rectum BMI 28.0-28.9,adult Epigastric pain Family history of colon cancer Femoral hernia of left side GERD (gastroesophageal reflux disease) Irreducible left inguinal hernia Irritable bowel syndrome with constipation Lipoma of skin Osteoporosis Overweight Periumbilical pain S/P cholecystectomy Sigmoid diverticulosis Straining during bowel movements Historical COVID-19 virus detected Cystitis, acute Encounter for screening colonoscopy FH: cholecystectomy Procedure/Surgical History Colonoscopy (03/29/2024), Gallbladder (12/14/2023), EGD - esophagogastroduodenoscopy (11/24/2023), Repair of left inguinal hernia (09/04/2020), Colonoscopy and biopsy of colon (04/21/2019), Colonoscopy normal (02/23/2004), Bilateral replacement of knee joints, Release of carpal tunnel for median nerve decompression, Tonsillectomy, primary or secondary; younger than age 12, Total abdominal hysterectomy. Medications cefdinir, See Instructions MiraLax, 1 packet(s), Oral, Daily Protonix 40 mg Tab-DR, 1 tab(s), Oral, Daily, Not taking: states not aking and home medication at this time Allergies Reglan (Sleep disturbance, Chest pain) dicyclomine (Abdominal pain) famotidine (Abdominal pain) hyoscyamine (Abdominal pain) Levaquin (Myalgia) NSAIDs (Unknown, Abdominal Pain) sucralfate (Constipation, Unknown) Social History Alcohol - Denies Alcohol Use, 04/12/2019 Never., 03/20/2024 Substance Abuse - Denies Substance Abuse, 04/12/2019 Never., 03/20/2024 Tobacco Never (less than 100 in lifetime) Tobacco Use:., 04/12/2024 Never (less than 100 in lifetime) Tobacco Use:. Never Smokeless Tobacco Use:., 03/22/2024 Family History COPD: Mother and Father. Hypertension: Mother. Primary malignant neoplasm of colon: Mother. Immunizations Vaccine Date Status Comments influenza virus vaccine, inactivated 03/10/2024 Recorded SARS-CoV-2 (COVID-19) mRNA BNT-162b2 vax 10/19/2020 Recorded SARS-CoV-2 (COVID-19) mRNA BNT-162b2 vax 09/24/2020 Recorded influenza virus vaccine, live, trivalent - Not Given Patient Refuses influenza virus vaccine, inactivated 01/07/2018 Recorded Result Comment: Electronical ly Signed By: Dontae DA SILVA, Josseline Lorenzo\.br\Date and Time Signed: 04/12/24 13:50 EST REMINDERS Observed: 04/11/2024 10:38 AM Status: F Source: [facility] Reminders From: Juliet Vang MA To: [facility] - Reminders/Recalls; Sent: 04/11/2024 10:38:54 EST Show up: 02/22/2027 10:38:00 EST Subject: Ambulatory Reminder Due Date/Time: 03/29/2027 10:38:00 EST Reminder/Recall Colon recall [address] Diggs 03/29/24 DISCHARGE INSTRUCTIONS Observed: 025 10:51 AM Status: F Source: [facility] Discharge Instructions SHANIQUE CAMARGO :1955 Visit Date:03/29/2024 Inpatient Discharge Instructions Your Care Team Admitting Physician - Josseline Diggs MD Referring Physician - Josseline Diggs MD Reason for Your Visit ABDOMINAL PAIN, GERD, FAMILY HISTORY OF COLON CANCER, IBS WITH CONSTIPATION Your Diagnosis Cecal polyp, Polyp of descending colon, Polyp of transverse colon Diverticulosis Hemorrhoids, internal Tests Performed Pathology Tissue Exam -- Results Pending -- Please visit your patient portal for your results or contact your primary care physician. This Is Your Medications List dexlansoprazole (Dexilant 30 mg oral delayed release capsule) hyoscyamine (hyoscyamine 0.125 mg oral Tab) ondansetron (ondansetron 4 mg Dis Tab) pantoprazole (Protonix 40 mg Tab-DR) Procedure History Gallbladder (12/14/2023), EGD - esophagogastroduodenoscopy (11/24/2023), Repair of left inguinal hernia (09/04/2020), Colonoscopy and biopsy of colon (04/21/2019), Colonoscopy normal (02/23/2004), Bilateral replacement of knee joints, Release of carpal tunnel for median nerve decompression, Tonsillectomy, primary or secondary; younger than age 12, Total abdominal hysterectomy. Discharge Vitals Temperature (Temporal Artery) 36.6 ???C Heart Rate (Monitored) 64 Respiratory Rate 20 Blood Pressure 123/75 Height 157.4 cm Weight 70.1 kg What to do next Instructions From Your Doctor No qualifying data available. Previously Scheduled Follow-Up Appointments Wednesday 1:30 PM EST With: Dontae DA SILVA, Josseline Lorenzo Where: [facility] [address] [address]- New Follow Up Appointments after Discharge Follow Up with Dontae DA SILVA, Josseline Lorenzo, [facility], [facility] When: Comments: office will call for follow up Where: [address], [address] [place] [address]- [phone] Medications What How Much When Why Instructions Next Dose Unchanged dexlansoprazole (Dexilant 30 mg oral delayed release capsule) 1 Capsules By Mouth Every day Abdominal pain GERD (gastroesophageal reflux disease) Family history of colon cancer Irritable bowel syndrome with constipation Belching Unchanged hyoscyamine (hyoscyamine 0.125 mg oral Tab) 1 Tablets By Mouth Every 4 hours Unchanged ondansetron (ondansetron 4 mg Dis Tab) 1 Tablets By Mouth 3 times a day as needed for Nausea/Vomiting Unchanged pantoprazole (Protonix 40 mg Tab-DR) 1 Tablets By Mouth Every day Test Results No qualifying data available. Allergies Reglan (Sleep disturbance, Chest pain) dicyclomine (Abdominal pain) famotidine (Abdominal pain) hyoscyamine (Abdominal pain) Levaquin (Myalgia) NSAIDs (Unknown, Abdominal Pain) sucralfate (Constipation, Unknown) Problems Ongoing - Any problem that you are currently receiving treatment for. Abdominal pain Belching Bleeding per rectum BMI 28.0-28.9,adult Epigastric pain Family history of colon cancer Femoral hernia of left side GERD (gastroesophageal reflux disease) Irreducible left inguinal hernia Irritable bowel syndrome with constipation Lipoma of skin Osteoporosis Overweight Periumbilical pain S/P cholecystectomy Sigmoid diverticulosis Straining during bowel movements Historical - Any problem that you are no longer receiving treatment for. COVID-19 virus detected Cystitis, acute Encounter for screening colonoscopy FH: cholecystectomy Education Materials Colonoscopy Care After Surgery Please read the instructions outlined below and refer to this sheet in the next few weeks. These discharge instructions provide you with general information on caring for yourself after you leave the hospital. Your doctor may also give you specific instructions. While your treatment has been planned according to the most current medical practices available, unavoidable complications occasionally occur. If you have any problems or questions after discharge, please call your doctor. ACTIVITY You may resume your regular activity, but move at a slower pace for the next 24 hours. Take frequent rest periods for the next 24 hours. Walking will help get rid of the air and reduce the bloated feeling in your abdomen (belly). No driving for 24 hours (because of the anesthesia (medicine) used during the test). You may shower. Do not sign any important legal documents or operate any machinery for 24 hours (because of the anesthesia used during the test). NUTRITION Drink plenty of fluids. You may resume your normal diet as instructed by your doctor. Begin with a light meal and progress to your normal diet. Heavy or fried foods are harder to digest and may make you feel nauseated (sick to your stomach). Avoid alcoholic beverages for 24 hours or as instructed. MEDICATIONS You may resume your normal medications unless your doctor tells you otherwise. WHAT YOU CAN EXPECT TODAY Some feelings of bloating in the abdomen. Passage of more gas than usual. Spotting of blood in your stool or on the toilet paper. FOLLOW-UP Your doctor will discuss the results of your test with you. SEEK IMMEDIATE MEDICAL ATTENTION IF: There is more than a spotting of blood in your stool. There is abdominal distention (your abdomen is swollen). There is vomiting. You have a temperature over 101.5 F. There is abdominal pain or discomfort that is severe or gets worse throughout the day. Diverticulosis Many people have small pouches in their colon called diverticulum. The diverticulum bulge outward through weak spots in the colon. You could have one or more of these pouches in the colon. The condition of having these pouches in the colon is called diverticulosis or diverticular disease. Diverticulosis is usually diagnosed by tests to evaluate something else. For example, you may have had a colonoscopy to screen for colon cancer when the diverticulosis was found. Most people with diverticulosis do not have any discomfort or problems. If symptoms develop, they may include mild cramps, bloating, and constipation. A complication of this condition is called diverticulitis. This is when the diverticulum become inflamed and infected. How to treat diverticulosis: Increasing the amount of fiber in the diet may reduce symptoms of diverticulosis and prevent complications such as diverticulitis (infected diverticuli). Fiber keeps stool soft and lowers pressure inside the colon so that bowel contents can move through easily. You should eat 20 to 35 grams of fiber each day. The table below shows the amount of fiber in some foods that you can easily add to your diet. Adding fiber slowly may decrease the bloating and fullness sometimes felt with an immediate high fiber diet. The doctor may also recommend taking a fiber product such as Citrucel or Metamucil once a day. In the past people with diverticulosis were to avoid nuts, corn, and seeds. This has not been found to be true. If you find that certain foods create cramping or bloating, avoid that food. Foods high in fiber include: Fresh fruits, fresh vegetables, legumes (beans), whole wheat bread, bran muffins or cereal, and nuts. See the table below for examples of high fiber foods. Remember, your goal is 20- 35 grams per day. Amount of fiber in different foods Food Serving Grams of fiber Fruits Apple (with skin) 1 medium apple 4.4 Banana 1 medium banana 3.1 Oranges 1 orange 3.1 Prunes 1 cup, pitted 12.4 Juices Apple, unsweetened, w/added ascorbic acid 1 cup 0.5 Grapefruit, white, canned, sweetened 1 cup 0.2 Grape, unsweetened, w/added ascorbic acid 1 cup 0.5 Tarrs 1 cup 0.7 Vegetables Cooked Green beans 1 cup 4.0 Carrots 1/2 cup sliced 2.3 Peas 1 cup 8.8 Potato (baked, with skin) 1 medium potato 3.8 Raw [place] (with peel) 1 cucumber 1.5 Lettuce 1 cup shredded 0.5 Tomato 1 medium tomato 1.5 Spinach 1 cup 0.7 Legumes Baked beans, canned, no salt added 1 cup 13.9 Kidney beans, canned 1 cup 13.6 Metzger beans, canned 1 cup 11.6 Lentils, boiled 1 cup 15.6 Breads, pastas, flours Bran muffins 1 medium muffin 5.2 Oatmeal, cooked 1 cup 4.0 White bread 1 slice 0.6 Whole-wheat bread 1 slice 1.9 Pasta and rice, cooked Macaroni 1 cup 2.5 Rice, brown 1 cup 3.5 Rice, white 1 cup 0.6 Spaghetti (regular) 1 cup 2.5 Nuts Almonds 1/2 cup 8.7 Peanuts 1/2 cup 7.9 [facility] SEEK IMMEDIATE MEDICAL CARE IF: You develop abdominal (belly) pain. An oral temperature above _ 101??? F__develops. Repeated vomiting occurs. Blood is being passed in stools (bright red or black tarry stools). You develop any bowel problems or changes which you have not had before. Extra Information: To learn how much fiber and other nutrients are in different foods, visit the [place] Department of Agriculture (USDA) National Nutrient Database at: http://www.nal.usda.gov/fnic/foodcomp/search/ Created using data from the USDA National Nutrient Database for Standard Reference. Available at http://www.nal.usda.gov/fnic/foodcomp/search/. Information adapted from: ExitCare??? Patient Information ???2009 [employer]. [employer] 2013 http://www.[employer]/contents/kiwaylbvqnbk-hwozclo-ilcpup-the-basics Colon Polyps Colon polyps are tissue growths inside the colon, which is part of the large intestine. They are one of the types of polyps that can grow in the body. A polyp may be a round bump or a mushroom-shaped growth. You could have one polyp or more than one. Most colon polyps are noncancerous (benign). However, some colon polyps can become cancerous over time. Finding and removing the polyps early can help prevent this. What are the causes? The exact cause of colon polyps is not known. What increases the risk? The following factors may make you more likely to develop this condition: ??? Having a family history of colorectal cancer or colon polyps. ??? Being older than 45 years of age. ??? Being younger than 45 years of age and having a significant family history of colorectal cancer or colon polyps or a genetic condition that puts you at higher risk of getting colon polyps. ??? Having inflammatory bowel disease, such as ulcerative colitis or Crohn's disease. ??? Having certain conditions passed from parent to child (hereditary conditions), such as: ? Familial adenomatous polyposis (FAP). ? Gooden syndrome. ? Turcot syndrome. ? Peutz???Jeghers syndrome. ? MUTYH-associated polyposis (MAP). ??? Being overweight. ??? Certain lifestyle factors. These include smoking cigarettes, drinking too much alcohol, not getting enough exercise, and eating a diet that is high in fat and red meat and low in fiber. ??? Having had childhood cancer that was treated with radiation of the abdomen. What are the signs or symptoms? Many times, there are no symptoms. If you have symptoms, they may include: ??? Blood coming from the rectum during a bowel movement. ??? Blood in the stool (feces). The blood may be bright red or very dark in color. ??? Pain in the abdomen. ??? A change in bowel habits, such as constipation or diarrhea. How is this diagnosed? This condition is diagnosed with a colonoscopy. This is a procedure in which a lighted, flexible scope is inserted into the opening between the buttocks (anus) and then passed into the colon to examine the area. Polyps are sometimes found when a colonoscopy is done as part of routine cancer screening tests. How is this treated? This condition is treated by removing any polyps that are found. Most polyps can be removed during a colonoscopy. Those polyps will then be tested for cancer. Additional treatment may be needed depending on the results of testing. Follow these instructions at home: Eating and drinking ??? Eat foods that are high in fiber, such as fruits, vegetables, and whole grains. ??? Eat foods that are high in calcium and vitamin D, such as milk, cheese, yogurt, eggs, liver, fish, and broccoli. ??? Limit foods that are high in fat, such as fried foods and desserts. ??? Limit the amount of red meat, precooked or cured meat, or other processed meat that you eat, such as hot dogs, sausages, patel, or meat loaves. ??? Limit sugary drinks. Lifestyle ??? Maintain a healthy weight, or lose weight if recommended by your health care provider. ??? Exercise every day or as told by your health care provider. ??? Do not use any products that contain nicotine or tobacco, such as cigarettes, e-cigarettes, and chewing tobacco. If you need help quitting, ask your health care provider. ??? Do not drink alcohol if: ? Your health care provider tells you not to drink. ? You are , may be , or are planning to become . ??? If you drink alcohol: ? Limit how much you use to: ? 0???1 drink a day for women. ? 0???2 drinks a day for men. ? Know how much alcohol is in your drink. In the [place] one drink equals one 12 oz bottle of beer (355 mL), one 5 oz glass of wine (148 mL), or one 1??? oz glass of hard liquor (44 mL). General instructions ??? Take rwdq-oes-axsjqio and prescription medicines only as told by your health care provider. ??? Keep all follow-up visits. This is important. This includes having regularly scheduled colonoscopies. Talk to your health care provider about when you need a colonoscopy. Contact a health care provider if: ??? You have new or worsening bleeding during a bowel movement. ??? You have new or increased blood in your stool. ??? You have a change in bowel habits. ??? You lose weight for no known reason. Summary ??? Colon polyps are tissue growths inside the colon, which is part of the large intestine. They are one type of polyp that can grow in the body. ??? Most colon polyps are noncancerous (benign), but some can become cancerous over time. ??? This condition is diagnosed with a colonoscopy. ??? This condition is treated by removing any polyps that are found. Most polyps can be removed during a colonoscopy. This information is not intended to replace advice given to you by your health care provider. Make sure you discuss any questions you have with your health care provider. Document Revised: 05/29/2020 Document Reviewed: 05/29/2020 [employer] Patient Education ??? 2023 [employer] Common Emergency Awareness Tips IS IT A STROKE? Act FAST and Check for these signs: FACE Does the face look uneven? ARM Does one arm drift down? SPEECH Does their speech sound strange? TIME Call at any sign of stroke Heart Attack Signs Chest discomfort: Most heart attacks involve discomfort in the center of the chest and lasts more than a few minutes, or goes away and comes back. It can feel like uncomfortable pressure, squeezing, fullness or pain. Discomfort in upper body: Symptoms can include pain or discomfort in one or both arms, back, neck, jaw or stomach. Shortness of breath: With or without discomfort. Other signs: Breaking out in a cold sweat, nausea, or lightheaded. Remember, MINUTES DO MATTER. If you experience any of these heart attack warning signs, call to get immediate medical attention! Patient Survey You may receive a survey in the mail asking you about your stay with us. We want to hear from you, please share your experience with us by completing your survey. Thank you for choosing [facility]. [place] Award Nomination The ANG[employer]ES (Diseases Attacking the Immune SYstem) Award is an international recognition program that honors and celebrates the skillful, compassionate care nurses provide every day. Anyone who experiences or observes amazing care being provided by a nurse is encouraged to submit a nomination. To nominate your nurse, use your smart phone to scan the QR code below. Patient Portal You may access all of your results and other medical record information on our secure patient portal. If you are not signed up for this yet, please contact [employer] at [phone] to get signed up today. Patient Name: SHANIQUE CAMARGO I have received this information and my questions have been answered. Patient/Social Service Liaison Name: Patient/Social Service Liaison Signature: Relationship to Patient: Witness Name/Signature: Date: Result Comment: Electronical ly Signed By: Donavon GARCIA, Roxie\.br\Date and Time Signed: 03/29/24 10:51 EST PATIENT EDUCATION - TEXT Observed: 03/29 10:50 AM Status: C Source: [facility] Patient Education - Text Colonoscopy Care After Surgery Please read the instructions outlined below and refer to this sheet in the next few weeks. These discharge instructions provide you with general information on caring for yourself after you leave the hospital. Your doctor may also give you specific instructions. While your treatment has been planned according to the most current medical practices available, unavoidable complications occasionally occur. If you have any problems or questions after discharge, please call your doctor. ACTIVITY You may resume your regular activity, but move at a slower pace for the next 24 hours. Take frequent rest periods for the next 24 hours. Walking will help get rid of the air and reduce the bloated feeling in your abdomen (belly). No driving for 24 hours (because of the anesthesia (medicine) used during the test). You may shower. Do not sign any important legal documents or operate any machinery for 24 hours (because of the anesthesia used during the test). NUTRITION Drink plenty of fluids. You may resume your normal diet as instructed by your doctor. Begin with a light meal and progress to your normal diet. Heavy or fried foods are harder to digest and may make you feel nauseated (sick to your stomach). Avoid alcoholic beverages for 24 hours or as instructed. MEDICATIONS You may resume your normal medications unless your doctor tells you otherwise. WHAT YOU CAN EXPECT TODAY Some feelings of bloating in the abdomen. Passage of more gas than usual. Spotting of blood in your stool or on the toilet paper. FOLLOW-UP Your doctor will discuss the results of your test with you. SEEK IMMEDIATE MEDICAL ATTENTION IF: There is more than a spotting of blood in your stool. There is abdominal distention (your abdomen is swollen). There is vomiting. You have a temperature over 101.5 F. There is abdominal pain or discomfort that is severe or gets worse throughout the day. Diverticulosis Many people have small pouches in their colon called diverticulum. The diverticulum bulge outward through weak spots in the colon. You could have one or more of these pouches in the colon. The condition of having these pouches in the colon is called diverticulosis or diverticular disease. Diverticulosis is usually diagnosed by tests to evaluate something else. For example, you may have had a colonoscopy to screen for colon cancer when the diverticulosis was found. Most people with diverticulosis do not have any discomfort or problems. If symptoms develop, they may include mild cramps, bloating, and constipation. A complication of this condition is called diverticulitis. This is when the diverticulum become inflamed and infected. How to treat diverticulosis: Increasing the amount of fiber in the diet may reduce symptoms of diverticulosis and prevent complications such as diverticulitis (infected diverticuli). Fiber keeps stool soft and lowers pressure inside the colon so that bowel contents can move through easily. You should eat 20 to 35 grams of fiber each day. The table below shows the amount of fiber in some foods that you can easily add to your diet. Adding fiber slowly may decrease the bloating and fullness sometimes felt with an immediate high fiber diet. The doctor may also recommend taking a fiber product such as Citrucel or Metamucil once a day. In the past people with diverticulosis were to avoid nuts, corn, and seeds. This has not been found to be true. If you find that certain foods create cramping or bloating, avoid that food. Foods high in fiber include: Fresh fruits, fresh vegetables, legumes (beans), whole wheat bread, bran muffins or cereal, and nuts. See the table below for examples of high fiber foods. Remember, your goal is 20- 35 grams per day. Amount of fiber in different foods Food Serving Grams of fiber Fruits Apple (with skin) 1 medium apple 4.4 Banana 1 medium banana 3.1 Oranges 1 orange 3.1 Prunes 1 cup, pitted 12.4 Juices Apple, unsweetened, w/added ascorbic acid 1 cup 0.5 Grapefruit, white, canned, sweetened 1 cup 0.2 Grape, unsweetened, w/added ascorbic acid 1 cup 0.5 Tarrs 1 cup 0.7 Vegetables Cooked Green beans 1 cup 4.0 Carrots 1/2 cup sliced 2.3 Peas 1 cup 8.8 Potato (baked, with skin) 1 medium potato 3.8 Raw [place] (with peel) 1 cucumber 1.5 Lettuce 1 cup shredded 0.5 Tomato 1 medium tomato 1.5 Spinach 1 cup 0.7 Legumes Baked beans, canned, no salt added 1 cup 13.9 Kidney beans, canned 1 cup 13.6 Metzger beans, canned 1 cup 11.6 Lentils, boiled 1 cup 15.6 Breads, pastas, flours Bran muffins 1 medium muffin 5.2 Oatmeal, cooked 1 cup 4.0 White bread 1 slice 0.6 Whole-wheat bread 1 slice 1.9 Pasta and rice, cooked Macaroni 1 cup 2.5 Rice, brown 1 cup 3.5 Rice, white 1 cup 0.6 Spaghetti (regular) 1 cup 2.5 Nuts Almonds 1/2 cup 8.7 Peanuts 1/2 cup [address] [facility] 2013. SEEK IMMEDIATE MEDICAL CARE IF: You develop abdominal (belly) pain. An oral temperature above _ 101??? F__develops. Repeated vomiting occurs. Blood is being passed in stools (bright red or black tarry stools). You develop any bowel problems or changes which you have not had before. Extra Information: To learn how much fiber and other nutrients are in different foods, visit the [place] Department of Agriculture (USDA) National Nutrient Database at: http://www.nal.usda.gov/fnic/foodcomp/search/ Created using data from the USDA National Nutrient Database for Standard Reference. Available at http://www.nal.usda.gov/fnic/foodcomp/search/. Information adapted from: ExitCare??? Patient Information ???2009 [employer]. [employer] 2012 http://www.[employer]/contents/jstjukdeliqt-ouaelfe-xbqegl-the-basics Oncology Colon Polyps Colon polyps are tissue growths inside the colon, which is part of the large intestine. They are one of the types of polyps that can grow in the body. A polyp may be a round bump or a mushroom-shaped growth. You could have one polyp or more than one. Most colon polyps are noncancerous (benign). However, some colon polyps can become cancerous over time. Finding and removing the polyps early can help prevent this. What are the causes? The exact cause of colon polyps is not known. What increases the risk? The following factors may make you more likely to develop this condition: ??? Having a family history of colorectal cancer or colon polyps. ??? Being older than 45 years of age. ??? Being younger than 45 years of age and having a significant family history of colorectal cancer or colon polyps or a genetic condition that puts you at higher risk of getting colon polyps. ??? Having inflammatory bowel disease, such as ulcerative colitis or Crohn's disease. ??? Having certain conditions passed from parent to child (hereditary conditions), such as: ? Familial adenomatous polyposis (FAP). ? Gooden syndrome. ? Turcot syndrome. ? Peutz?Jeghers syndrome. ? MUTYH-associated polyposis (MAP). ??? Being overweight. ??? Certain lifestyle factors. These include smoking cigarettes, drinking too much alcohol, not getting enough exercise, and eating a diet that is high in fat and red meat and low in fiber. ??? Having had childhood cancer that was treated with radiation of the abdomen. What are the signs or symptoms? Many times, there are no symptoms. If you have symptoms, they may include: ??? Blood coming from the rectum during a bowel movement. ??? Blood in the stool (feces). The blood may be bright red or very dark in color. ??? Pain in the abdomen. ??? A change in bowel habits, such as constipation or diarrhea. How is this diagnosed? This condition is diagnosed with a colonoscopy. This is a procedure in which a lighted, flexible scope is inserted into the opening between the buttocks (anus) and then passed into the colon to examine the area. Polyps are sometimes found when a colonoscopy is done as part of routine cancer screening tests. How is this treated? This condition is treated by removing any polyps that are found. Most polyps can be removed during a colonoscopy. Those polyps will then be tested for cancer. Additional treatment may be needed depending on the results of testing. Follow these instructions at home: Eating and drinking ??? Eat foods that are high in fiber, such as fruits, vegetables, and whole grains. ??? Eat foods that are high in calcium and vitamin D, such as milk, cheese, yogurt, eggs, liver, fish, and broccoli. ??? Limit foods that are high in fat, such as fried foods and desserts. ??? Limit the amount of red meat, precooked or cured meat, or other processed meat that you eat, such as hot dogs, sausages, patel, or meat loaves. ??? Limit sugary drinks. Lifestyle ??? Maintain a healthy weight, or lose weight if recommended by your health care provider. ??? Exercise every day or as told by your health care provider. ??? Do not use any products that contain nicotine or tobacco, such as cigarettes, e-cigarettes, and chewing tobacco. If you need help quitting, ask your health care provider. ??? Do not drink alcohol if: ? Your health care provider tells you not to drink. ? You are , may be , or are planning to become . ??? If you drink alcohol: ? Limit how much you use to: ? 0?1 drink a day for women. ? 0?2 drinks a day for men. ? Know how much alcohol is in your drink. In the [place] one drink equals one 12 oz bottle of beer (355 mL), one 5 oz glass of wine (148 mL), or one 1? oz glass of hard liquor (44 mL). General instructions ??? Take gdoh-axj-kzkqsml and prescription medicines only as told by your health care provider. ??? Keep all follow-up visits. This is important. This includes having regularly scheduled colonoscopies. Talk to your health care provider about when you need a colonoscopy. Contact a health care provider if: ??? You have new or worsening bleeding during a bowel movement. ??? You have new or increased blood in your stool. ??? You have a change in bowel habits. ??? You lose weight for no known reason. Summary ??? Colon polyps are tissue growths inside the colon, which is part of the large intestine. They are one type of polyp that can grow in the body. ??? Most colon polyps are noncancerous (benign), but some can become cancerous over time. ??? This condition is diagnosed with a colonoscopy. ??? This condition is treated by removing any polyps that are found. Most polyps can be removed during a colonoscopy. This information is not intended to replace advice given to you by your health care provider. Make sure you discuss any questions you have with your health care provider. Document Revised: 05/29/2020 Document Reviewed: 05/29/2020 [employer] Patient Education ? 2023 [employer]. PROGRESS NOTE-PHYSICIAN Observed: 2024 10:49 AM Status: F Source: [facility] Progress Note-Physician Patient: SHANIQUE CAMARGO Age: 68 years Sex: Female : 1955 Associated Diagnoses: None Author: Alex DA SILVA, Jovan Anton Postoperative Information Postoperative disposition: Postoperative disposition: To PACU. Optimetrix number: Optimetrix number [id number]. Anesthetic utilized: General. Health Status Allergies: Allergic Reactions (Selected) Severity Not Documented NSAIDs- Unknown and abdominal pain. Sucralfate- Unknown and constipation. Nonallergic Reactions (Selected) Moderate Dicyclomine- Abdominal pain. Famotidine- Abdominal pain. Hyoscyamine- Abdominal pain. Reglan- Chest pain and sleep disturbance. Severity Not Documented Levaquin- Myalgia. Physical Examination Vital Signs 03/29/2024 10:40 EST Heart Rate Monitored 64 bpm Respiratory Rate Monitored 20 br/min Systolic Blood Pressure 123 mmHg Diastolic Blood Pressure 75 mmHg SpO2 97 % 03/29/2024 10:36 EST Temperature Temporal Artery 36.6 DegC Heart Rate Monitored 65 bpm Respiratory Rate Monitored 15 br/min Systolic Blood Pressure 123 mmHg Diastolic Blood Pressure 73 mmHg SpO2 98 % 03/29/2024 9:46 EST Temperature Temporal Artery 36.4 DegC Heart Rate Monitored 83 bpm Respiratory Rate 16 br/min Systolic Blood Pressure 134 mmHg Diastolic Blood Pressure 90 mmHg HI Blood Pressure Location Left arm SpO2 98 % Pain Assessment: Controlled. General: Awake, Alert, Appropriate. Respiratory: Adequate air exchange. Cardiovascular: Stable, Normal peripheral perfusion. Neurological: Normal sensory function, Normal motor function. Assessment Anesthetic outcome No anesthetic complications noted. Adequate pain relief. able to void without difficulty, able to ambulate with assist, tolerating PO intake, no N/V. Review / Management Condition: Stable. Plan Transfer/Discharge: Transfer/Discharge Discharge when meets criteria ( From PACU to floor ). Result Comment: Electronical ly Signed By: Alex DA SILVA, Jovan Anton\.br\Date and Time Signed: 03/29/24 10:50 EST OPERATIVE REPORT Observed: 03/29/2024 10:33 AM Status: F Source: [facility] Operative Report Patient: SHANIQUE CAMARGO Age: 68 years Sex: Female : 1955 Associated Diagnoses: None Author: Josseline Diggs MD Pre-Procedure Procedure Date 03/29/2024 10:34:00 . Procedure Type: Colonoscopy with removal of tumor(s), polyp(s), or other lesion(s) by cold snare technique. Procedure provider Performed by Josseline Diggs MD. Current history and physical Documented on chart. Gallbladder ([id number]) on 12/14/2023 at 67 Years. Comments: 03/22/2024 12:33 EST - Carin Knight EGD - esophagogastroduodenoscopy ([id number]) on 11/24/2023 at 67 Years. Repair of left inguinal hernia ([id number]) on 09/04/2020 at 64 Years. Colonoscopy and biopsy of colon ([id number]) on 04/21/2019 at 63 Years. Comments: 04/26/2019 13:24 EST - Polo Rivera Hyperplastic polyp Colonoscopy normal ([id number]) on 02/23/2004 at 48 Years. Total abdominal hysterectomy (063770378). Bilateral replacement of knee joints (7473330083). Release of carpal tunnel for median nerve decompression (44474865). Tonsillectomy, primary or secondary; younger than age 12 (14045).. Past Medical History Resolved Encounter for screening colonoscopy ([id number]): Resolved. Cystitis, acute (724061886): Resolved. COVID-19 virus detected (5169389925): Resolved. FH: cholecystectomy (2949082074): Resolved.. Family History Primary malignant neoplasm of colon Mother Hypertension Mother COPD Father Mother . Procedure History Gallbladder ([id number]) on 12/14/2023 at 67 Years. Comments: 03/22/2024 12:33 LORRAINE - Carin Knight A removal EGD - esophagogastroduodenoscopy ([id number]) on 11/24/2023 at 67 Years. Repair of left inguinal hernia ([id number]) on 09/04/2020 at 64 Years. Colonoscopy and biopsy of colon ([id number]) on 04/21/2019 at 63 Years. Comments: 04/26/2019 13:24 Polo Wolf Hyperplastic polyp Colonoscopy normal (536736023) on 02/23/2004 at 48 Years. Total abdominal hysterectomy (832950559). Bilateral replacement of knee joints (2341086534). Release of carpal tunnel for median nerve decompression (45075240). Tonsillectomy, primary or secondary; younger than age 12 (87621).. Colorectal neoplasm risk assessment Average risk. Informed Consent After discussing the rationale, risks and benefits, and alternatives to this procedure, the patient provided signed consent for the procedure. Pre-procedure diagnosis: Diagnostic: Rectal bleeding. Medications (Selected) Inpatient Medications Ordered Sodium Chloride 0.9% IV Marsha 1000 mL 1,000 mL: 1,000 mL, IV, 20 mL/hr, Routine, Start date 03/29/24 8:29:00 EST, 50 hour(s), Total volume (mL): 1,000, 70.1 kg, 1.75, m2 Prescriptions Prescribed Dexilant 30 mg oral delayed release capsule: 30 mg = 1 cap(s), Oral, Daily, # 30 cap(s), Refills(s) 0, Pharmacy: [facility], 157.4, cm, 03/22/24 12:37:00 EST, Height/Length Dosing, 70.1, kg, 03/22/24 12:37:00 EST, Weight Dosing Documented Medications Documented Protonix 40 mg Tab-DR: = 1 tab(s), Oral, Daily, Refills(s) 0, Control of stomach acid hyoscyamine 0.125 mg oral Tab: = 1 tab(s), Oral, q4hr, Refills(s) 0 ondansetron 4 mg Dis Tab: 4 mg = 1 tab(s), Oral, TID, PRN Nausea/Vomiting, Refills(s) 0 ASA Classification: Class II. . Monitoring: See anesthesia record. . Procedure The procedure was performed in the hospital. See anesthesia record for sedation given during procedure. The patient was positioned starting in the left lateral decubitus position. Endoscope type used was an adult-size. The endoscope was lubricated then introduced through the anus. The scope was advanced to the terminal ileum. No difficulties encountered during the procedure. The bowel preparation quality was good and was adequate (see polyps greater than or equal to 6 millimeters). The patient tolerated the procedure well. Time to Cecum: 4 min Withdrawal time 11 min Last colonoscopy: 2020 Findings 1. External skin tags 2. 1 mm sessile polyp in the cecum status post resection using cold biopsy 3. Five mm sessile polyp seen in the transverse colon resected with cold snare completely 4. 5 mm sessile polyp in the descending colon status post resection using cold snare 5. Severe diverticulosis throughout the whole colon 6. Large internal hemorrhoids 7. Normal Terminal ileum Images Procedure images: Rec_hd_video__[id number].jpg Rec_hd_video__[id number].jpg Rec_hd_video__[id number].jpg Rec_hd_video__[id number].jpg Rec1_hd_video_2024__T10_[id number].jpg Rec1_hd_video__[id number].jpg Rec1_hd_video__[id number].jpg Rec1_hd_video__[id number].jpg Rec1_hd_video_2024__T10_[id number].jpg Rec1_hd_video__[id number].jpg . Post-Procedure Complications: none. Estimated blood loss: Minimal. Specimens: sent to pathology. Devices/ implants: none left in place. Impression and Plan 3 colon polyps???removed as above Diverticulosis Internal hemorrhoids Anal skin tags Recommendations: Repeat colonoscopy:: In 3 years. Follow-up:: in clinic for 1-2 weeks when pathology is available. Diet:: Previous. Medication resumption:: Continue current medications, Avoid NSAIDs. Return to activities:: After 24 hours. Orders: Prescribe Anusol suppositories for large hemorrhoids (office will call in a prescription). Education and Follow-up: Counseled: Patient, Family. Result Comment: Electronical ly Signed By: Dontae DA SILVA, Josseline Morales.br\Date and Time Signed: 03/29/24 10:36 EST Other Comment: Missing Attac hment - attachment storage system not supported [id number] Can be viewed in source system Missing Attachment - attachment storage system not supported [id number] Can be viewed in source systemMissing Attachment - attachment storage system not supported [id number] Can be viewed in source systemMissing Attachment - attachment storage system not supported [id number] Can be viewed in source systemMissing Attachment - attachment storage system not supported [id number] Can be viewed in source systemMissing Attachment - attachment storage system not supported [id number] Can be viewed in source systemMissing Attachment - attachment storage system not supported [id number] Can be viewed in source systemMissing Attachment - attachment storage system not supported [id number] Can be viewed in source systemMissing Attachment - attachment storage system not supported [id number] Can be viewed in source systemMissing Attachment - attachment storage system not supported 1323085 Can be viewed in source system MAIN OR PREOPERATIVE RECORD Observed: 10:30 AM Status: F Source: [facility] Main OR Preoperative Record Holding Area Document Type FT Summary Primary Physician: Josseline Diggs MD Finalized Date/Time: 03/29/24 09:50:24 Pt. Name: SHANIQUE CAMARGO Paul MontgomeryB./Sex: 1955 Female Med Rec #: [id number] Physician: Josseline Diggs MD Financial #: [id number] Pt. Type: O Room/Bed: / Admit/Disch: 03/29/24 09:22:54 - Institution: Case Times Holding FT Pre-Care Text: Verifies consent for planned procedure, identifies individual values and wishes concerning care, includes family members in perioperative teaching Secures patient's records' belongings, and valuables, maintains patient's dignity and privacy, and maintains patient confidentiality Entry 1 In Holding 03/29/24 09:35:00 Outcomes Met? Yes Last Modified By: Brianna Moyer RN 03/29/24 09:48:57 Post-Care Text: The patient participates in decisions affecting his or her perioperative plan of care The patient's right to privacy is maintained Surgery Checklist FT Entry 1 Patient Birthday, ID Band Procedure History and Physical, Identification: Check, Patient Verification: Surgical Consent, With Participation Patient NPO after Midnight: Yes Results Reviewed Clear Comments: Personal Items: Glasses Personal Items Glassess, bilat knee Comment: replaced Limitations: Vision Complaints of Pain: No Pain Comment: Denies Operative Site n/a Marking: Availability Equipment Verified: Does Patient Smoke No Patient states Yes Comment - Adult Edie postop adult Supervision supervision available Case Cancelled in No Holding Area see comments below for reason Last Modified By: Brianna Moyer RN 03/29/24 09:50:19 General Comments: Pt completed prep at 0800 and remained NPO since/RADHA DIOP Finalized By: Brianna Moyer RN Document Signatures Signed By: Brianna Moyer RN 03/29/24 09:50 SURGICAL PATHOLOGY REPORT Observed: 06/2024 10:22 AM Status: F Source: [address] [place] [address]- Surgical Pathology Report Collected Date/Time: 03/29/2024 10:22 EST Pathologist: Zechariah DA SILVA PhD, Vee Miller Received Date/Time: 03/29/2024 11:53 EST Dontae DA SILVA, Josseline Diggs MD, Josseline So Surgical Pathology Report - 04/03/2024 10:03 EST - Auth (Verified) Final Diagnosis A: POLYP, CECUM, POLYPECTOMY: - COLONIC MUCOSA WITH LYMPHOID AGGREGATES. B: POLYP, TRANSVERSE COLON, POLYPECTOMY: - TUBULAR ADENOMA. C: POLYP, DESCENDING COLON, POLYPECTOMY: - TUBULAR ADENOMA. (Electronic Signature) Vee Apple MD PhD 04/03/2024 10:03 Clinical Information Rectal bleeding Pre-Op Diagnosis: Rectal bleeding Procedure: Colonoscopy Post-Op Diagnosis: 1. 3 colon polyps -removed 2. Diverticulosis 3. Internal hemorrhoids 4. Anal skin tags Specimen(s) Received A.Cecal polyp B.Transverse colon polyp C.Descending colon polyp Gross Description A: Received in formalin labeled with patient name, number, and cecal polyp is one fragment of her soft tissue measuring 0.4 x 0.3 x 0.2 cm. Entire specimen submitted in one cassette. B: Received in formalin labeled with patient name, number, and transverse colon polyp are two fragments of her soft tissue measuring 0.1 to 0.3 cm in diameter, respectively. Entire specimen submitted in one cassette. C: Received in formalin labeled with patient name, number, and descending colon polyp are two fragments of her/pink soft tissue measuring 0.2 to 0.3 cm in diameter, respectively. Entire specimen submitted in one cassette. () [facility] Microscopic Description Microscopic examination performed unless gross only specified. This report was transcribed using voice recognition technology and might contain unintended computerized technology lead errors. Performed By: #### [id number] # ### [address] [address] SURGICAL PATHOLOGY REPORT Observed: 06/2024 10:22 AM Status: F Source: [address] [place] [address]- Surgical Pathology Report Collected Date/Time: 03/29/2024 10:22 EST Pathologist: Zechariah DA SILVA PhD, Vee Miller Received Date/Time: 03/29/2024 11:53 EST Dontae DA SILVA, Josseline Diggs MD, Josseline So Surgical Pathology Report - 04/03/2024 10:03 EST - Auth (Verified) Final Diagnosis A: POLYP, CECUM, POLYPECTOMY: - COLONIC MUCOSA WITH LYMPHOID AGGREGATES. B: POLYP, TRANSVERSE COLON, POLYPECTOMY: - TUBULAR ADENOMA. C: POLYP, DESCENDING COLON, POLYPECTOMY: - TUBULAR ADENOMA. (Electronic Signature) Vee Apple MD PhD 04/03/2024 10:03 Clinical Information Rectal bleeding Pre-Op Diagnosis: Rectal bleeding Procedure: Colonoscopy Post-Op Diagnosis: 1. 3 colon polyps -removed 2. Diverticulosis 3. Internal hemorrhoids 4. Anal skin tags Specimen(s) Received A.Cecal polyp B.Transverse colon polyp C.Descending colon polyp Gross Description A: Received in formalin labeled with patient name, number, and cecal polyp is one fragment of her soft tissue measuring 0.4 x 0.3 x 0.2 cm. Entire specimen submitted in one cassette. B: Received in formalin labeled with patient name, number, and transverse colon polyp are two fragments of her soft tissue measuring 0.1 to 0.3 cm in diameter, respectively. Entire specimen submitted in one cassette. C: Received in formalin labeled with patient name, number, and descending colon polyp are two fragments of her/pink soft tissue measuring 0.2 to 0.3 cm in diameter, respectively. Entire specimen submitted in one cassette. () [facility] Microscopic Description Microscopic examination performed unless gross only specified. This report was transcribed using voice recognition technology and might contain unintended computerized technology lead errors. Performed By: #### [id number] # ### [address] [address] MAIN OR INTRAOPERATIVE RECORD Observed: 03/29/2024 10:17 AM Status: C Source: [facility] Main OR Intraoperative Recor d IntraOp Document Type FT Summary Primary Physician: Josseline Diggs MD Finalized Date/Time: 03/30/24 11:33:38 Pt. Name: SHANIQUE CAMARGO /Sex: 1955 Female Med Rec #: [id number] Physician: Josseline Diggs MD Financial #: [id number] Pt. Type: O Room/Bed: / Admit/Disch: 03/29/24 09:22:54 - 03/29/24 23:59:59 Institution: Case Times FT Entry 1 Patient Times In Room 03/29/24 10:12:00 Out Room 03/29/24 10:33:00 Procedure Times Start 03/29/24 10:17:00 Stop 03/29/24 10:32:00 Anesthesia Times Start 03/29/24 10:12:00 Stop 03/29/24 10:33:00 Time at Cecum 03/29/24 10:21:00 Last Modified By: Jules GARCIA, Kala 03/29/24 10:33:43 General Comments: 03/30/24 Chart opened to review and send charges [facility] Case Attendance FT Entry 1 Entry 2 Entry 3 Case Attendee Jer IRIDOLOGIST, Josue Shabazz, Laura Guevara HOUSEKEEPER NANNY, Suma Whiting Role Performed IRIDOLOGIST Scrub - Primary Staff - Other Time In 03/29/24 10:12:00 03/29/24 10:12:00 03/29/24 10:12:00 Time Out 03/29/24 10:33:00 03/29/24 10:33:00 03/29/24 10:33:00 Procedure COLONOSCOPY(.) COLONOSCOPY(.) COLONOSCOPY(.) Comments Dr. Johnson supervising help in room Last Modified By: Jules RN, Kala Vicente RN, Kala Vicente RN, Kala 03/29/24 10:33:44 03/29/24 10:33:44 03/29/24 10:33:44 Entry 4 Entry 5 Case Attendee Dontae DA SILVA, Josseline Vicente RN, Kala Role Performed Surgeon - Primary Doctor Of Podiatric Medicine - Primary Time In 03/29/24 10:12:00 03/29/24 10:12:00 Time Out 03/29/24 10:33:00 03/29/24 10:33:00 Procedure COLONOSCOPY(.) COLONOSCOPY(.) Comments Last Modified By: Kala Vicente RN, RN, Angela 03/29/24 10:33:44 03/29/24 10:33:44 Perioperative Protocols FT Pre-Care Text: Implements protective measures prior to operative or invasive procedure, confirms identity before the operative or invasive procedure, verifies operative procedure, surgical site, and laterality Entry 1 Procedure(s) COLONOSCOPY(.) Patient Identity Birthday, ID Band Verified (select at Check, Patient least 2): Participation Consents / H and P Anesthesia Consent, Operative Site N/A Verified H&P, Surgery/Procedure Marking Verified Consent Surgical Site No Laterality Verified n/a Verified Procedure Verified Yes Correct Patient Yes Position Verified Availability Equipment, Medication Prep Dry n/a Verified (If Applicable) PreOp Antibiotic No Time Out Josue aRndle CRNA, Given Participants Laura Shabazz, Paola HOUSEKEEPER NANNY, Dontae Hong MD, Josseline Lorenzo, Kala Vicente RN Time Out Complete 03/29/24 10:14:00 Outcomes Met? Yes Last Modified By: Kala Vicente RN 03/29/24 10:17:13 Post-Care Text: The patient is free from signs and symptoms of injury caused by extraneous objects Allergy Information FT Pre-Care Text: Verifies allergies Entry 1 Allergies Reviewed? Yes Allergies Reviewed Self/Patient With Outcomes Met? Yes Last Modified By: Kala Vicente RN 03/29/24 10:17:27 Post-Care Text: The patient received appropriate medication(s) safely administered during the perioperative period Surgical Procedures FT Entry 1 Procedure Description Procedure COLONOSCOPY Modifiers . Surgeon Description Colonoscopy with cecal polypectomy using biopsy forceps, transverse colon polypectomy, descending colon polypectomy Primary Procedure Yes Primary Surgeon Dontae DA SILVA, Josseline Lorenzo Start 03/29/24 10:17:00 Stop 03/29/24 10:32:00 Anesthesia Type General Surgical Service Gastroenterology Wound Class 2 - Clean-Contaminated Last Modified By: Kala Vicente RN 03/29/24 10:36:04 General Case Data FT Pre-Care Text: Classifies surgical wound, implements aseptic technique, initiates traffic control Entry 1 Case Information OR ENDO 1 FT Case Level Level 2 Wound Class 2 - Clean-Contaminated Specialty Gastroenterology ASA Class 2 Preop Diagnosis Rectal bleeding Postop Same As Preop No Postop Diagnosis Cecal polyp, transverse Outcomes Met? Yes colon polyp, descending colon polyp, diverticulosis and internal hemorrhoids Last Modified By: Kala Vicente RN 03/29/24 10:34:41 Post-Care Text: The patient is free from signs and symptoms of infection Skin Assessment (Pre Procedure) FT Pre-Care Text: Implements protective measures to prevent skin/ tissue injury due to thermal or mechanical sources Evaluates for signs and symptoms of physical injury to skin and tissue Entry 1 Skin Integrity Intact, [place], Warm, & Skin Abnormality No Dry Outcomes Met? Yes Last Modified By: Kala Vicente RN 03/29/24 10:17:53 Post-Care Text: The patient is free from signs and symptoms of injury caused by extraneous objects Patient Positioning FT Pre-Care Text: Identifies physical alterations that require additional precautions for procedure-specific positioning, verifies presence of prosthetics or corrective devices, positions the patient, evaluates the patient for signs and symptoms of injury as a result of positioning Entry 1 Procedure COLONOSCOPY(.) Body Position Lateral, right side up Feet Uncrossed? Yes Left Arm Position Resting at Side Right Arm Position Resting at Side Left Leg Position Extended Right Leg Position Extended Positioning Device Pillow Under Head Large, Safety Strap Press Points Checked Yes By Kala Vicente RN Outcomes Met? Yes Last Modified By: Kala Vicente RN 03/29/24 10:18:10 Post-Care Text: The patient is free from signs and symptoms of injury related to positioning Patient Care Devices FT Pre-Care Text: Implements protective measures to prevent skin/ tissue injury due to thermal or mechanical sources Entry 1 Entry 2 Equipment Type ENDOSCOPY VIDEO SYSTEM MONITOR CHARGE SURGERY Equipment Number [id number] E1 Equipment Setting Outcomes Met? Yes Yes Last Modified By: Kala Vicente RN, RN, Angela 03/29/24 10:18:27 03/29/24 10:18:27 Post-Care Text: The patient is free from signs and symptoms of injury caused by extraneous objects Transport To OR FT Pre-Care Text: Transports according to individual needs. Evaluates for signs and symptoms of skin and tissue injury as a result of transfer or transport Entry 1 Via Cart By Kala Vicente RN Safety Precautions Safety Strap, Side Outcomes Met? Yes Rails Up Last Modified By: Kala Vicente RN 03/29/24 10:18:33 Post-Care Text: The patient is free from signs and symptoms of injury related to transfer/transport Departure From OR FT Pre-Care Text: Transports according to individual needs. Evaluates for signs and symptoms of skin and tissue injury as a result of transfer or transport. Entry 1 Via Cart Safety Precautions Safety Strap, Side Rails Up PostOp Destination PACU Transported By Kala Vicente RN Patient Status Stable Skin. Condition Intact, [place], Warm, & Dry Airway Maintenance Oxygen in Use? No Airway Device N/A Outcomes Met? 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 Yes Verified Last Modified By: Kala Vicente RN 03/29/24 10:19:27 Post-Care Text: The patient received appropriate medication(s) safely administered during the perioperative period For Luz-Henry please see scanned medication reconcilliation form for medications used at the field during the procedure. Cultures & Specimens FT Pre-Care Text: Manages specimen handling and disposition Manages culture specimen collection Entry 1 Cultures Ordered n/a Specimens Ordered Yes Specimen Disposition Designated OR Area Frozen Section Times Outcomes Met? Yes Last Modified By: Kala Vicente RN 03/29/24 10:27:22 Post-Care Text: The patient is free from signs and symptoms of injury caused by extraneous objects The patient is free from signs and symptoms of infection Sign Out FT Entry 1 Before Patient Leaves OR Nurse verbally Yes Nurse verbally n/a confirms with the confirms with the team the name of team that the procedure(s) instrument, sponge, recorded and needle counts are correct (or N/A) Nurse verbally Yes Nurse verbally Yes confirms with the confirms with the team how the team whether there specimen is labeled are any equipment (including patient problems to be name), if applicable addressed Sign Out Complete 03/29/24 10:32:00 Last Modified By: Kala Vicente RN 03/29/24 10:36:20 Case Comments <None> Finalized By: Monica Ventura CST Document Signatures Signed By: Kala Vicente RN 03/29/24 10:36 Kala Vicente RN 03/29/24 10:36 Monica Ventura CST 03/30/24 11:33 MAIN OR PACU II RECORD Observed: 025 10:17 AM Status: F Source: [facility] Main OR PACU II Record PACU Phase II Document Type FT Summary Primary Physician: Josseline Diggs MD Finalized Date/Time: 03/29/24 11:20:01 Pt. Name: SHANIQUE CAMARGO Paul Ac/Sex: 1955 Female Med Rec #: [id number] Physician: Josseline Diggs MD Financial #: [id number] Pt. Type: O Room/Bed: / Admit/Disch: 03/29/24 09:22:54 - Institution: Case Times PACU II FT Pre-Care Text: Identifies barriers to communication and implements measures to provide psychological support and determines knowledge level Develops individualized plan of care, and ensures continuity of care Maintains patient's dignity and privacy, and maintains patient confidentiality Identifies and reports philosophical, cultural, and spiritual beliefs and values Identifies individual values and wishes concerning care administers prescribed antibiotic therapy and immunizing agents as ordered, Evaluates postoperative tissue perfusion Implements thermoregulation measures, and monitors body temperature Evaluates postoperative respiratory status Evaluates postoperative cardiac status Evaluates postoperative neurological status Assesses pain control, collaborated in initiating patient-controlled analgesia and implements alternative methods of pain control Verifies allergies, administers prescribed medications and solutions, evaluates response to medications Entry 1 In PACU II 03/29/24 10:36:00 Discharge from PACU 03/29/24 11:06:00 II Outcomes Met? Yes Last Modified By: Roxie Raphael RN 03/29/24 11:19:58 Post-Care Text: The patient demonstrates knowledge of the expected response to the operative or invasive procedure The patient's care is consistent with the individualized perioperative plan of care The patient's right to privacy is maintained The patient's value system, lifestyle, ethnicity, and culture are considered, respected, and incorporated into the perioperative plan of care The patient participates in decisions affecting his or her perioperative plan of care. The patient is free from signs and symptoms of infection The patient has wound/tissue perfusion consistent with or improved from baseline levels established preoperatively The patient is at or returning to normothermia at the conclusion of the immediate postoperative period The patient's respiratory function is consistent with or improved from baseline levels established preoperatively The patient's cardiovascular status is consistent with or improved from baseline levels established preoperatively The patient's neurological status is consistent with or improved from baseline levels established preoperatively The patient demonstrates and/or reports adequate pain control throughout the perioperative period The patient received appropriate medication(s), safely administered during the perioperative period Finalized By: Roxie Raphael RN Document Signatures Signed By: Roxie Raphael RN 03/29/24 11:20 H&P UPDATE Observed: 03/29/2024 10:12 AM Status: F Source: [facility] H&P Update Patient: SHANIQUE CAMARGO Age: 68 years Sex: Female : 1955 Associated Diagnoses: None Author: Dontae DA SILVA, Josseline Lorenzo Preoperative Information Chief compliant/Indication for procedure: Rectal bleeding Chief Complaint as above Review of Systems All systems reviewed, negative except as mentioned above Physical Examination Vital Signs (last 24 hrs) Last Charted Temp Temporal 36.4 DegC (MAR 29 09:46) Heart Rate Monitored 83 bpm (MAR 29 09:46) SBP 134 mmHg (MAR 29 09:46) DBP H 90 mmHg (MAR 29 09:46) Weight 70.1 kg (MAR 29 09:46) General: in Nad Abdomen: Soft, NTND Impression and Plan Diagnosis: Rectal bleeding -colonoscopy PROGRESS NOTE-PHYSICIAN Observed: 2024 9:54 AM Status: F Source: [facility] Progress Note-Physician Patient: SHANIQUE CAMARGO Age: 68 years Sex: Female : 1955 Associated Diagnoses: None Author: Alex DA SILVA, Jovan Anton Preoperative Information Anesthesia history: Patient history: No prior anesthetic problems. Informed consent: Signed by patient. Re-evaluation prior to induction: Initial evaluation reviewed: No significant change. Review of Systems Respiratory: Negative except as documented in history of present illness. Cardiovascular: Negative except as documented in history of present illness. Health Status Allergies: Allergic Reactions (Selected) Severity Not Documented NSAIDs- Unknown and abdominal pain. Sucralfate- Unknown and constipation. Nonallergic Reactions (Selected) Moderate Dicyclomine- Abdominal pain. Famotidine- Abdominal pain. Hyoscyamine- Abdominal pain. Reglan- Chest pain and sleep disturbance. Severity Not Documented Levaquin- Myalgia., Allergies (7) Active Severity Reaction hyoscyamine Moderate Abdominal pain famotidine Moderate Abdominal pain dicyclomine Moderate Abdominal pain Reglan Moderate Chest pain, Sleep disturbance Levaquin Myalgia sucralfate Unknown, Constipation NSAIDs Abdominal Pain, Unknown Current medications: (Selected) Inpatient Medications Ordered Sodium Chloride 0.9% IV Marsha 1000 mL 1,000 mL: 1,000 mL, IV, 20 mL/hr, Routine, Start date 03/29/24 8:29:00 EST, 50 hour(s), Total volume (mL): 1,000, 70.1 kg, 1.75, m2 Prescriptions Prescribed Dexilant 30 mg oral delayed release capsule: 30 mg = 1 cap(s), Oral, Daily, # 30 cap(s), Refills(s) 0, Pharmacy: [id number], 157.4, cm, 03/22/24 12:37:00 EST, Height/Length Dosing, 70.1, kg, 03/22/24 12:37:00 EST, Weight Dosing Documented Medications Documented Protonix 40 mg Tab-DR: = 1 tab(s), Oral, Daily, Refills(s) 0, Control of stomach acid hyoscyamine 0.125 mg oral Tab: = 1 tab(s), Oral, q4hr, Refills(s) 0 ondansetron 4 mg Dis Tab: 4 mg = 1 tab(s), Oral, TID, PRN Nausea/Vomiting, Refills(s) 0, Home Medications (4) Active Dexilant 30 mg oral delayed release capsule 30 mg = 1 cap(s), Oral, Daily hyoscyamine 0.125 mg oral Tab 1 tab(s), Oral, q4hr ondansetron 4 mg Dis Tab 4 mg = 1 tab(s), PRN, Oral, TID Protonix 40 mg Tab-DR 1 tab(s), Oral, Daily , Medications (1) Active Scheduled: (0) Continuous: (1) Sodium Chloride 0.9% 1,000 mL 1,000 mL, IV, 20 mL/hr PRN: (0) Problem list: All Problems Abdominal pain / SNOMED CT 76913275 / Confirmed Belching / SNOMED CT 251652152 / Confirmed Bleeding per rectum / SNOMED CT 037755904 / Confirmed BMI 28.0-28.9,adult / SNOMED CT 1875252289 / Confirmed Epigastric pain / SNOMED CT 851761664 / Confirmed Family history of colon cancer / SNOMED CT 836565048 / Confirmed Femoral hernia of left side / SNOMED CT 5503656766 / Confirmed GERD (gastroesophageal reflux disease) / SNOMED CT 562240540 / Confirmed Irreducible left inguinal hernia / SNOMED CT 6633615963 / Confirmed Irritable bowel syndrome with constipation / SNOMED CT 9126437330 / Confirmed Lipoma of skin / SNOMED CT 096189514 / Confirmed Osteoporosis / SNOMED CT 245043455 / Confirmed Overweight / SNOMED CT 158866928 / Confirmed Periumbilical pain / SNOMED CT 3751238411 / Confirmed S/P cholecystectomy / SNOMED CT 4593906853 / Confirmed Sigmoid diverticulosis / SNOMED CT 1433338804 / Confirmed Straining during bowel movements / SNOMED CT 38212053 / Confirmed Resolved: COVID-19 virus detected / SNOMED CT 1425786476 Resolved: Cystitis, acute / SNOMED CT 956365821 Resolved: Encounter for screening colonoscopy / SNOMED CT 245031025 Resolved: FH: cholecystectomy / SNOMED CT 6982377385 Canceled: Diverticular disease / SNOMED CT 5597880672 Canceled: Left inguinal hernia / SNOMED CT 704296654 Canceled: Mass of left inguinal region / SNOMED CT 8347924602, Active Problems (17) Abdominal pain Belching Bleeding per rectum BMI 28.0-28.9,adult Epigastric pain Family history of colon cancer Femoral hernia of left side GERD (gastroesophageal reflux disease) Irreducible left inguinal hernia Irritable bowel syndrome with constipation Lipoma of skin Osteoporosis Overweight Periumbilical pain S/P cholecystectomy Sigmoid diverticulosis Straining during bowel movements Histories Past Medical History: Resolved Encounter for screening colonoscopy (240677461): Resolved. Cystitis, acute (572106854): Resolved. COVID-19 virus detected (4774397102): Resolved. FH: cholecystectomy (5087124609): Resolved. Procedure history: Gallbladder (05502340) on 12/14/2023 at 67 Years. Comments: 03/22/2024 12:33 EST - Carin Knight A removal EGD - esophagogastroduodenoscopy ([id number]) on 11/24/2023 at 67 Years. Repair of left inguinal hernia (5271396762) on 09/04/2020 at 64 Years. Colonoscopy and biopsy of colon ([id number]) on 04/21/2019 at 63 Years. Comments: 04/26/2019 13:24 EST - Polo Rivera Hyperplastic polyp Colonoscopy normal (265321333) on 02/23/2004 at 48 Years. Total abdominal hysterectomy (356253261). Bilateral replacement of knee joints (1559498976). Release of carpal tunnel for median nerve decompression (17444343). Tonsillectomy, primary or secondary; younger than age 12 (03230). Social History Social & Psychosocial Habits Tobacco 03/22/2024 Tobacco Use: Never (less than 100 in l Smokeless tobacco use: Never . Physical Examination VS/Measurements Airway: Mallampati classification: II (soft palate, fauces, uvula visible). Respiratory: Lungs are clear to auscultation, Respirations are non-labored. Cardiovascular: Regular rhythm. Plan [place] [employer]hesi[employer] (ASA) physical status classification: Class II. Anesthetic Preoperative Plan: Anesthesia General, and -TIVA. Result Comment: Electronical ly Signed By: Alex DA SILVA, Jovan Anton\.br\Date and Time Signed: 03/29/24 09:54 EST AMBULATORY VISIT SUMMARY Observed: 03/22 1:24 PM Status: F Source: [facility] Ambulatory Visit Summary SHANIQUE CAMARGO :1955 Visit Date:03/22/2024 Ambulatory Visit Instructions Your Diagnosis Abdominal pain GERD (gastroesophageal reflux disease) Family history of colon cancer Irritable bowel syndrome with constipation Belching FH: cholecystectomy Straining during bowel movements Bleeding per rectum S/P cholecystectomy Your Care Team Attending Physician - Josseline Diggs MD Primary Care Physician - Katelyn Kaufman MD This Is Your Medications List dexlansoprazole (Dexilant 30 mg oral delayed release capsule) Contact prescribing physician if questions or concerns hyoscyamine (hyoscyamine 0.125 mg oral Tab) ondansetron (ondansetron 4 mg Dis Tab) pantoprazole (Protonix 40 mg Tab-DR) Procedures Performed Gallbladder (12/14/2023), EGD - esophagogastroduodenoscopy (11/24/2023), Repair of left inguinal hernia (09/04/2020), Colonoscopy and biopsy of colon (04/21/2019), Colonoscopy normal (02/23/2004), Bilateral replacement of knee joints, Release of carpal tunnel for median nerve decompression, Tonsillectomy, primary or secondary; younger than age 12, Total abdominal hysterectomy. Discharge Vitals Heart Rate (Peripheral) 81 Blood Pressure 129/84 Height 62 in Height 157.4 cm Weight 70.1 kg Weight 154.544 lb BMI 28.29 What to do next Scheduled Follow-Up Appointments Wednesday 1:30 PM EST With: Dontae DA SILVA, Josseline Lorenzo Where: [facility] [address] [place] [id number]- Medications What How Much When Why Instructions New dexlansoprazole (Dexilant 30 mg oral delayed release capsule) 1 Capsules By Mouth Every day Abdominal pain GERD (gastroesophageal reflux disease) Family history of colon cancer Irritable bowel syndrome with constipation Belching Pickup at [facility] Unchanged hyoscyamine (hyoscyamine 0.125 mg oral Tab) 1 Tablets By Mouth Every 4 hours Contact prescribing physician if questions or concerns Unchanged ondansetron (ondansetron 4 mg Dis Tab) 1 Tablets By Mouth 3 times a day as needed for Nausea/Vomiting Contact prescribing physician if questions or concerns Unchanged pantoprazole (Protonix 40 mg Tab-DR) 1 Tablets By Mouth Every day Contact prescribing physician if questions or concerns Pharmacy Information [id number]: [address] [place], [place] [id number] [phone] Allergies Reglan (Sleep disturbance, Chest pain) dicyclomine (Abdominal pain) famotidine (Abdominal pain) hyoscyamine (Abdominal pain) Levaquin (Myalgia) NSAIDs (Unknown, Abdominal Pain) sucralfate (Constipation, Unknown) Problems Ongoing - Any problem that you are currently receiving treatment for. Abdominal pain Belching Bleeding per rectum BMI 28.0-28.9,adult Epigastric pain Family history of colon cancer Femoral hernia of left side GERD (gastroesophageal reflux disease) Irreducible left inguinal hernia Irritable bowel syndrome with constipation Lipoma of skin Osteoporosis Overweight Periumbilical pain S/P cholecystectomy Sigmoid diverticulosis Straining during bowel movements Historical - Any problem that you are no longer receiving treatment for. COVID-19 virus detected Cystitis, acute Encounter for screening colonoscopy FH: cholecystectomy Patient Survey You may receive a survey via text or e-mail asking about your office visit. Please share your experience with us by completing your survey. We appreciate your feedback and thank you for choosing us for your care. GASTROENTEROLOGY OFFICE/CLINIC NOTE Obse rved: 03/22/2024 1:09 PM Status: F Source: [facility] Gastroenterology Office/Clin ic Note Chief Complaint Patient c/o change in bowel habits and sometimes bleeding after straining. Abdominal pain that has resolved since patient stopped medications. HPI Staff New- Patient is a(n) 68 year old female who was referred by Dr Kaufman for GERD, abdominal pain. Patient states that she is no having abdominal pain. Patient c/o change in bowel habits and occasional bleeding after straining. Patients mother had colon cancer. Patients last colonoscopy was 2019 and patient states that when she asked about repeat colonoscopy, she was advised to recheck in 10 years. Abdominal pain: Has resolved since patient stopped taking medications. When did you first have this pain: August 2023 Quality (sharp, dull):varies Constant or comes or go: constant Improving or worsening factors factors: Protonix minimally improved pain. She was prescribed carafate but it caused constipation so she discontinued it. She saw Dr Bolden for abdominal pain 11/16/23. GERD: Onset of symptoms: Improving/worsening factors: Treatment's tried: -Omeprazole (Prilosec) - no -Pantoprazole (Protonix) - yes -Esomeprazole (Nexium) - no -Lanosprazole (Prevacid) - no -Dexlansoprazole (Dexilant) - no -Rabeprazole (Aciphex) - no -Famotidine (Pepcid) - _caused abdominal pain -Vonoprazon (Voquezna) - no TUMS- helped Fhx of colon cancer- mother Denies blood thinners. Denies GLP-1 agonists. EGD w/ Dr Bolden 11/24/23 Normal EGD. Colonoscopy w/ Dr Bolden 04/21/2019 1. Severe sigmoid diverticulosis. 2. 3 mm sessile polyp in the rectum. Pathology: Rectal polyp, biopsy: - Hyperplastic polyp NM hepatobiliary wo pharm 03/01/24: FINDINGS: LIVER: Normal, prompt and uniform radiotracer uptake and clearing. BILIARY DUCTS: Normal radioisotopic biliary excretion. GALLBLADDER: Not visualized consistent with known cholecystectomy INTESTINE: Normal with no evidence of common biliary ductal obstruction. IMPRESSION: No evidence of a biliary leak NM hepatobiliary w pharm 12/02/23: FINDINGS: LIVER: Slightly delayed but otherwise uniform radiotracer uptake and clearing. BILIARY DUCTS: Normal radioisotopic biliary excretion. GALLBLADDER: Normal filling, but only slight emptying. INTESTINE: Limited radiotracer within the bowel. But no complete obstruction of the common bile duct. EJECTION FRACTION: 20 % within 60 minutes. (Normal EF > 38%). IMPRESSION: 1. Abnormal gallbladder emptying suggestive of dyskinesia or ball-valve type obstruction. US abdomen 02/11/24: IMPRESSION: No significant abnormality in the current study. No significant interval change. CT abd/pel w 01/07/24: IMPRESSION: 1. No acute or suspicious abdominal findings to account for patient's symptoms. 2. Recent cholecystectomy. No acute or suspicious findings. 3. Colonic diverticulosis. CBC 03/06/24 White Blood Count: 8.5 Red Blood Count: 4.55 Hemoglobin: 13.7 Hematocrit: 42.5 Mean Corpuscular Volume: 93.4 Mean Corpuscular Hemoglobin: 30.1 Mean Corpuscular HGB Conc: 32.2 Red Cell Distribution Width: 12.3 Platelet Count: 260 Mean Platelet Volume: 10.7 Neutrophils Percent Auto: 61.7 Lymphocytes Percent Auto: 27.6 Monocytes Percent Auto: 9.1 Eosinophils Percent Auto: 0.9 Basophils Percent Auto: 0.5 Immature Granulocytes Pct Auto: 0.2 Neutrophils Absolute Auto: 5.2 Lymphocytes Absolute Auto: 2.3 Monocytes Absolute Auto: 0.8 Eosinophils Absolute Auto: 0.1 Basophils Absolute Auto: 0.0 Immature Granulocytes Abs Auto: 0.02 CMP 03/06/24 Sodium: 140 Potassium: 4.2 Chloride: 105 Carbon Dioxide: 29.3 Anion Gap: 9.9 Glucose: 70 Low Blood Urea Nitrogen: 15.0 Creatinine: 0.68 Estimated GFR ( Shireen: >60 Estimated GFR (Non- Isela: >60 BUN Creatinine Ratio: 22.1 Calcium: 9.3 Bilirubin Total: 0.2 Aspartate Amino Transferase: 17 Alanine Aminotransferase: 23 Alkaline Phosphatase: 80 Total Protein: 7.0 Albumin Level: 3.7 Globulin: 3.3 Albumin Globulin Ratio: 1.1 Amylase (03/06/24): 46 Lipase (03/06/24): 37.0 History of Present Illness I have reviewed HPI staff note, most recent labs and imaging, I agree with the above documentation with the following additions/exceptions : PT with bad reflux Protonix not helping gets belching after eating Going to the bathroom could be a problem softeners does not help much comes and goes moves her bowels every day, straining during BMs, no issues with incomplete evacuation h/o hystrectomy 35 years ago pt tried stool softeners and miralax miralax helped when she took it regular Review of Systems PHQ Score Initial Depression Screen Score: 0 SCORE All systems reviewed, negative except as mentioned above Physical Exam Vitals & Measurements HR: 81(Peripheral) BP: 129/84 HT: 62 in HT: 157.4 cm WT: 70.1 kg WT: 154.544 lb BMI: 28.29 General: alert, no acute distress HEENT: atraumatic normocephalic Cardiovascular: regular rate and rhythm, normal peripheral perfusion Respiratory: Lungs CTA, respirations non labored Extremities: no deformity, no trauma Abdomen: Benign, soft, nontender nondistended Assessment/Plan 1. Abdominal pain (R10.9: Unspecified abdominal pain) Ordered: dexlansoprazole, 30 mg = 1 cap(s), Oral, Daily, # 30 cap(s), Refills(s) 0, Pharmacy: [facility], 157.4, cm, 03/22/24 12:37:00 EST, Height/Length Dosing, 70.1, kg, 03/22/24 12:37:00 EST, Weight Dosing Colonoscopy (Hospital Procedure) 2. GERD (gastroesophageal reflux disease) (K21.9: Gastro-esophageal reflux disease without esophagitis) Ordered: dexlansoprazole, 30 mg = 1 cap(s), Oral, Daily, # 30 cap(s), Refills(s) 0, Pharmacy: [facility], 157.4, cm, 03/22/24 12:37:00 EST, Height/Length Dosing, 70.1, kg, 03/22/24 12:37:00 EST, Weight Dosing Colonoscopy (Hospital Procedure) 3. Family history of colon cancer (Z80.0: Family history of malignant neoplasm of digestive organs) Ordered: dexlansoprazole, 30 mg = 1 cap(s), Oral, Daily, # 30 cap(s), Refills(s) 0, Pharmacy: [facility], 157.4, cm, 03/22/24 12:37:00 EST, Height/Length Dosing, 70.1, kg, 03/22/24 12:37:00 EST, Weight Dosing Colonoscopy (Hospital Procedure) 4. Irritable bowel syndrome with constipation (K58.1: Irritable bowel syndrome with constipation) Ordered: dexlansoprazole, 30 mg = 1 cap(s), Oral, Daily, # 30 cap(s), Refills(s) 0, Pharmacy: [facility], 157.4, cm, 03/22/24 12:37:00 EST, Height/Length Dosing, 70.1, kg, 03/22/24 12:37:00 EST, Weight Dosing Colonoscopy (Hospital Procedure) 5. Belching (R14.2: Eructation) Ordered: dexlansoprazole, 30 mg = 1 cap(s), Oral, Daily, # 30 cap(s), Refills(s) 0, Pharmacy: [facility], 157.4, cm, 03/22/24 12:37:00 EST, Height/Length Dosing, 70.1, kg, 03/22/24 12:37:00 EST, Weight Dosing Colonoscopy (Hospital Procedure) 6. FH: cholecystectomy (Z83.79: Family history of other diseases of the digestive system) 7. Straining during bowel movements (R19.8: Other specified symptoms and signs involving the digestive system and abdomen) 8. Bleeding per rectum (K62.5: Hemorrhage of anus and rectum) 9. S/P cholecystectomy (Z90.49: Acquired absence of other specified parts of digestive tract) Advised to use squatty potty and massage the colon Advised to eat prunes and kiwi fruit Advised to use miralax and titrate to have 1-2 BM daily Schedule colonoscopy given family history of colon cancer and ongoing rectal bleeding Switch to Dexilant 30 mg daily Follow-up No qualifying data available Problem List/Past Medical History Ongoing Abdominal pain Belching Bleeding per rectum BMI 28.0-28.9,adult Epigastric pain Family history of colon cancer Femoral hernia of left side GERD (gastroesophageal reflux disease) Irreducible left inguinal hernia Irritable bowel syndrome with constipation Lipoma of skin Osteoporosis Overweight Periumbilical pain S/P cholecystectomy Sigmoid diverticulosis Straining during bowel movements Historical COVID-19 virus detected Cystitis, acute Encounter for screening colonoscopy FH: cholecystectomy Procedure/Surgical History Gallbladder (12/14/2023), EGD - esophagogastroduodenoscopy (11/24/2023), Repair of left inguinal hernia (09/04/2020), Colonoscopy and biopsy of colon (04/21/2019), Colonoscopy normal (02/23/2004), Bilateral replacement of knee joints, Release of carpal tunnel for median nerve decompression, Tonsillectomy, primary or secondary; younger than age 12, Total abdominal hysterectomy. Medications Dexilant 30 mg oral delayed release capsule, 30 mg= 1 cap(s), Oral, Daily hyoscyamine 0.125 mg oral Tab, 1 tab(s), Oral, q4hr ondansetron 4 mg Dis Tab, 4 mg= 1 tab(s), Oral, TID, PRN Protonix 40 mg Tab-DR, 1 tab(s), Oral, Daily Allergies Reglan (Sleep disturbance, Chest pain) dicyclomine (Abdominal pain) famotidine (Abdominal pain) hyoscyamine (Abdominal pain) Levaquin (Myalgia) NSAIDs (Unknown, Abdominal Pain) sucralfate (Constipation, Unknown) Social History Alcohol - Denies Alcohol Use, 04/12/2019 Never., 03/20/2024 Substance Abuse - Denies Substance Abuse, 04/12/2019 Never., 03/20/2024 Tobacco Never (less than 100 in lifetime) Tobacco Use:. Never Smokeless Tobacco Use:., 03/22/2024 Family History COPD: Mother and Father. Hypertension: Mother. Primary malignant neoplasm of colon: Mother. Immunizations Vaccine Date Status Comments influenza virus vaccine, inactivated 03/10/2024 Recorded SARS-CoV-2 (COVID-19) mRNA BNT-162b2 vax 10/19/2020 Recorded SARS-CoV-2 (COVID-19) mRNA BNT-162b2 vax 09/24/2020 Recorded influenza virus vaccine, live, trivalent - Not Given Patient Refuses influenza virus vaccine, inactivated 01/07/2018 Recorded Result Comment: Electronical ly Signed By: Dontae DA SILVA, Josseline Morales.br\Date and Time Signed: 03/22/24 13:09 EST L Observed: 12/14/2023 12:24 PM Status: F Source: [facility] Specimen: [id number] Received: 12/16/23 Status: LUIS Mitchell Num: [id number] Spec Type: Surgical Subm Dr: Jatin Hayden DO Tissues: A Gallbladder (GB) Procedures: HE, Gross/Micro L3 Age/ Patient Sex Location Account Attending Physician Shanique Camargo 67/F LABELL [id number] Jatin Hayden DO SPEC NUM: [id number] RECD: 12/16/23 STATUS: LUIS MITCHELL NUM: [id number] ROSENDO: 12/14/[address]: Jatin Hayden DO ENTERED: 12/16/[address] [facility] [address]: Ifrah Combs SPEC TYPE: Surgical DEPT: KATY SHETTY ENTERED BY: [id number] RECV BY: [id number] ORDERED: HE, Gross/Micro L3 ORDERED: HE, Gross/Micro [...] The mucosal surface is green and velvety. Social Service Liaison sections are submitted in cassette A1. Microscopic Description Microscopic examination is performed. ----- ------- Specimen: [id number] Received: 12/16/23 Status: LUIS Mitchell Num: [id number] Spec Type: Surgical Subm Dr: Jatin Hayden DO Tissues: A Gallbladder (GB) Procedures: Debo SALGUERO/Micro L3 ----- ------- Patient: Shanique Camargo [id number] (Continued) ----- ------- Specimen: [id number] Received: 12/16/23 (Continued) Signed (signature on file) Nghia Ramirez MD 12/21/23 1056 ----- ------- Specimen: [id number] Received: 12/16/23 Status: LUIS Mitchell Num: [id number] Spec Type: Surgical Subm Dr: Jatin Hayden DO Tissues: A Gallbladder (GB) Procedures: Debo SALGUERO/Crystal L3 ----- ------- Patient: Shanique Camargo [id number] (Continued) ----- ------- Specimen: [id number] Received: 12/16/23 (Continued) CPT Codes 94567 ----- ------- ----- ------- Specimen: [id number] Received: 12/16/23 Status: LUIS Mitchell Num: [id number] Spec Type: Surgical Subm Dr: Jatin Hayden DO Tissues: A Gallbladder (GB) Procedures: HE, Gross/Micro L3 ----- ------- Patient: Shanique Camargo Paul [id number] (Continued) ----- ------- Signed (signature on file) Nghia Ramirez MD 12/21/23 1056 GENERAL SURGERY OFFICE/CLINI C NOTE Observed: 11/16/2023 3:49 PM Status: F Source: [facility] General Surgery Office/Clini c Note Chief Complaint consultation for GERD HPI [...] PRN ondansetron 4 mg Dis Tab, 4 mg= 1 tab(s), Oral, TID, PRN Protonix 40 mg Tab-DR, 40 mg= 1 tab(s), Oral, Daily Allergies Levaquin (Myalgia) Social History Alcohol - Denies Alcohol Use, 04/12/2019 Substance Abuse - Denies Substance Abuse, 04/12/2019 Tobacco Never (less than 100 in lifetime) Tobacco Use:. Never Smokeless Tobacco Use:. Household tobacco concerns: No., 11/16/2023 Family History COPD: Mother and Father. Hypertension: Mother. Primary malignant neoplasm of colon: Mother. Immunizations Vaccine Date Status Comments influenza virus vaccine, live, trivalent - Not Given Patient Refuses Result Comment: Electronical ly Signed By: CASEY DA SILVA, Jovan Beasley\.br\Date and Time Signed: 11/16/23 15:49 EDT AMBULATORY VISIT SUMMARY Observed: 11/15 3:32 PM Status: F Source: [facility] Ambulatory Visit Summary SHANIQUE CAMARGO :1955 Visit Date:11/16/2023 Ambulatory Visit Instructions Your Care Team Attending Physician - CASEY DA SILVA, Jovan Beasley Primary Care Physician - Katelyn Kaufman [...] you for choosing us for your care. ALLERGIES DATE TYPE / CODE NAME / CODE REACTION SEVERITY SOURCE 05/01/2024 DRUG INGREDI/41 7144026(SN OMED CT) DICYCLOMINE (Inactive) GI intolerance [facility] 05/01/2024 DRUG INGREDI/41 9594174(SN OMED CT) FAMOTIDINE (Inactive) GI intolerance [facility] 05/01/2024 DRUG INGREDI/41 9127373(SN OMED CT) HYOSCYAMINE (Inactive) GI intolerance [facility] 05/01/2024 DRUG INGREDI/41 4462629(SN OMED CT) METOCLOPRAMIDE HCL Other [facility] 12/09/2023 [id number] 06(SNOMED CT) sucralfate unknown~[id number] [facility] 12/09/2023 TRINA/2997372 06(SNOMED CT) NSAIDs Abdominal Pain~Unknown [facility] 12/06/2023 DRUG INGREDI/41 1115023(SN OMED CT) LEVOFLOXACIN Other [facility] 12/06/2023 Drug Class/4195 33794(SNOM ED CT) NSAIDS (NON-STEROIDAL ANTI-INFLAMMATORY DRUG) (Inactive) GI intolerance [facility] 12/06/2023 DRUG INGREDI/41 8861587(SN OMED CT) SUCRALFATE (Inactive) GI intolerance [facility] /8273380 06(SNOMED CT) famotidine 78873451 Moderate (Severity Modifier) (Qualifier Value) [facility] JAH6464176 06(SNOMED CT) dicyclomine 68902386 Moderate (Severity Modifier) (Qualifier Value) [facility] JAH6696697 06(SNOMED CT) hyoscyamine 42890586 Moderate (Severity Modifier) (Qualifier Value) [facility] JAH3343200 06(SNOMED CT) Reglan 28569850~82076871 2 Moderate (Severity Modifier) (Qualifier Value) [facility] JAH1455381 06(SNOMED CT) No Known Allergies [facility] JAH0922862 06(SNOMED CT) Levaquin [id number] [facility] ENCOUNTERS ADMIT/DISCHARGE ACCOUNT NUMBER ADMITTING ENCOUNTER CLASS LOCATION SOURCE 05/10/2024/05/11/19 [id number] FAWAD PACHECO Ambulatory Building:[facility] 04/12/2024/04/12/19 [id number] Ambulatory [facility] DHBuilding:[facility] DHRoom: CD:[id number] [facility] 03/29/2024/03/29/19 [id number] Josseline Diggs [facility] 03/22/2024/03/22/19 [id number] Ambulatory [facility] DHBuilding:[facility] DHRoom: CD:[id number] [facility] 03/16/2024 [id number] Ambulatory [facility] DHBuilding:[facility] 02/18/2024 [id number] Ambulatory [facility] DHBuilding:[facility] 12/27/2023/12/27/19 24 [id number] Ambulatory Building:[facility] 12/14/2023/12/14/19 24 [id number] [facility] 12/06/2023/12/06/19 24 [id number] Ambulatory Building:[facility] EP[facility] 11/24/2023/11/24/19 24 [id number] Ambulatory CD:[id number] 7Building:CD :[id number] [facility] 11/16/2023/11/16/19 [id number] Ambulatory Anyi ding:INDY Donaldson : Exam 1 [facility] 09/14/2023/09/14/19 [id number] Jas Kelly [facility] PAYERS ENCOUNTER GUARANTOR PAYER SUBSCRIBER SOURCE 05/10/2024 Primary Insurance:UNITED HEALTHCARE MEDICAREPolicy Number: [id number] Date:2024-02-23 SHANIQUE CANTERDOB: [id number] [place] [address] [facility] 04/12/2024 SHANIQUE L CANTERDOB: W KEVIN LNTel: ~~(4 1 (HP) [facility]: [id number] Date:2023-09-21 [facility] SHANIQUE L CANTERDOB: W KEVIN LNTel: ~~(4 1 (HP) [facility] Insurance:[facility]Policy Number: [id number] Date:2024-03-22 [facility]/22/2024 SHANIQUE L CANTERDOB: W KEVIN LNTel: ~~(4 1 (HP) [facility] Insurance:[facility]Policy Number: [id number] Date:2023-09-21 [facility] 03/16/2024 SHANIQUE L CANTERDOB: W KEVIN LNTel: ~(41 9 (HP) [facility] Insurance:[facility]Policy Number: [id number] Date:2023-09-21 SHANIQUE PONCE [facility] 12/27/2023 SHANIQUE CANTERDOB: [place] [address]Yrn: (HP) Primary Insurance:[facility] MEDICAREPolicy Number: [id number] Date:2023-02-22 SHANIQUE CANTERDOB: [id number] [place] [address] [facility] EPIC 12/14/2023 Shanique L [id number] [facility] [place] [address]Ixd: (HP) Primary Insurance:Self PayPolicy Number: Effective Date:2023-12-14 [facility] 12/06/2023 SHANIQUE CANTERDOB: [place] [address]Wyx: (HP) Primary Insurance:UNITED HEALTHCARE MEDICAREPolicy Number: [id number] Date:2023-02-22 SHANIQUE CANTERDOB: [id number] [place] [address] [facility] EP[facility] 11/24/2023 SHANIQUE L CANTERDOB: KEVIN LNTel: ~(41 9 (HP) [facility] Insurance:[facility]Policy Number: [id number] Date:2023-09-21 SHANIQUE PONCE [facility] 11/16/2023 SHANIQUE L CANTERDOB: KEVIN LNTel: ~(41 9 (HP) [facility] Insurance:[facility]Policy Number: [id number] Date:2023-09-21 SHANIQUE PONCE [facility] 09/14/2023 Shanique L [id number] [place] [address]Rac: (HP) Primary Insurance:[facility] PFFSPolicy Number: [id number] Date:[id number] [address]AG: Shanique [place]: [id number] [place] [address]Qgi: () [facility] 09/14/2023 Secondary Insurance:Self PayPolicy Number: Effective Date:2023-08-30 NOT GIVENUNK [facility]
--- OUTSIDE RECORDS SUMMARY | 2024-07-26 17:08 | XMS_ITS ---
Author Organization [facility] [place] Address [address] [place] [address] Care Team Providers Care Agricultural Extension Officer Name Role Phone Stanton Kaufman Primary Care Provider REASON FOR VISIT xr results Encounters Encounter Location Date Provider [facility] [address] [place] [address] 07/26/2024 Stanton Kaufman Plan Of Treatment No Information Progress Notes * Shanique CAMARGO LDOB:[birth year] (68 yo F)Acc No.[id number]:07/26/2024 Patient: Rose HU Shanique Miller :1955 A ge:68 Y S ex:Female Address:[address] [place], [address] * true * Date: Generated for Darryli ng/Fapatrickg/eTransmitting on: 0 08/29/2024 07:45 AM EDT
--- OUTSIDE RECORDS SUMMARY | 2024-08-18 10:30 | XMS_ITS ---
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 Name Role Phone Shae Stanton Primary Care Provider [phone] Allergies Allergen (clinical drug ingredient) Drug/Non Drug [...] 08/18/2024 Encounters Encounter Location Date Provider Diagnosis [facility] [address] [place] [address] 08/18/2024 Stanton Kaufman Knee osteoarthritis M17.9 Assessments [...] Shanique CAMARGO LDOB:[birth year] (68 yo F)Acc No.[id number]:08/18/2024 Progress Note Patient: Shanique DOLAN Provider: Jacey Kaufman ([facility])MD :1955 A ge:68 Y S ex:Female Date:08/18/2024 Address:[address] [place] [address] [place] , [phone] Check In:02:23 PM ESTCheck O ut:03:25 PM [...] Procedure Codes: * Preventive Medicine: Screenings/Counseling: B AK ACTION PLAN Above Normal BMI Follow-up D ietary management education, guidance, and counseling * * Sign off status: Completed Visit Status: C HK (Check Out) true * Provider: Jacey Kaufman ([facility]C)MD Date: 0 08/18/2024 Generated for Jason lehman/Brittany/eTshanicesmitting on: 0 08/29/2024 07:45 AM EDT History and Physical Notes * HPI (History of Present Illness) Category Sub-Category Detail Notes Category Not es General kne pain - worse wtih higher humidity and actoiviey cant takie nsaids Physical Examination Category Sub-Category Detail Notes Section Note s R knne wotih sm all effusions
--- OUTSIDE RECORDS SUMMARY | 2024-08-23 09:30 | XMS_ITS ---
Author Organization The [facility] in [place] Address [address] [place] [address] Care Team Providers Care Cartridge Belt Puncher Name Role Phone Stanton Kaufman Primary Care Provider [phone] Allergies Allergen (clinical drug ingredient) Drug/Non Drug Allergy documented on EMR Reaction Allergy Type Onset Date Status Levaquin severe muscle aches Drug Allergy Active Non-steroidal anti-inflammatory agent (FN) NSAIDs GI INTOLERANCE Drug Allergy Active sucralfate Sucralfate GI intolerance Drug Allergy Active REASON FOR VISIT subsequent Medicare Wellness appointment Medications Medication SIG (Take, Route, Frequency, Duration) [...] Points 0 Interpretation Negative Vital Signs Weight 156 lbs 08/23/2024 Height 61 in 08/23/2024 Blood pressure systolic 112 mm Hg 08/24/19 25 Blood pressure diastolic 78 mm Hg 025 BMI 29.47 kg/m2 08/23/2024 Encounters Encounter Location Date Provider Diagnosis [facility] Medicine [address] [place] [address] 08/23/2024 Stanton Kaufman Encounter for Medica re annual wellness exam Z00.00 Assessments Encounter Date Diagnosis (ICD Code) Assessment Notes Treatment Notes Treatment Clinical Notes Section Notes 08/23/2024 Encounter for Medicare annual wellness exam (ICD-10 - Z00.00) patient presents to the office for a subsequent medicare wellness appointment. a depression screening/anxi ety screening/ safety screening was completed without concerns, SLUMS memory test was completed and the patient scored a 30/30, vision test was completed and the patient scored 20/20, patient was happy a pleasant, vaccines were up to date and the patient was due for yearly labs which were ordered Plan Of Treatment Pending Test Test Name Order Date COMPREHENSIVE METABOLIC PROFILE WITH GFR 08/23/2024 OCCULT BLOOD, FECAL, IMMUNOASSAY 025 CBC W/AUTO DIFF 08/23/2024 GLYCOHEMOGLOBIN A1C 08/23/2024 THYROID PANEL (T4/TSH/FREE T3) Lipid Panel 08/23/2024 Progress Notes * Shanique CAMARGO LDOB:[birth year] (68 yo F)Acc No.[id number]:08/23/2024 UNLOCKED PROGRESS NOTE Progress Note Patient: Shanique DOLAN Provider: Jacey Kaufman ([facility])MD :1955 A ge:68 Y S ex:Female Date:08/23/2024 Address:[address] [place] , [id number] Check In:01:20 PM ESTCheck O ut:01:56 PM EST Subjective: * Chief Complaints: * 1 . subsequent Medicare Wellness appointment. * HPI: Henok mancini Annual Wellness Visit: Type of Visit: [place] [facility] Annual [place]ness [place] (SAWV).? Visual Acuity: N /A. Other Providers of Care: C are Team reviewed with patient: Y es, and updates made in [facility] Physical Activity: D o you exercise regularly? Y es T ype of exercise: _ __ F requency: _ __ Nutrition/Diet: O n a typical day, how many servings of fruits and vegetables do you consume? 0 I n a typical week, how many servings of fried or high fat (such as cheese, fatty meat) do you consume? 0 I n a typical week, how many servings of high fiber or whole grain foods do you consume? 0 Seat Belt: D o you always use your seat belt in your car??Yes A re you having difficulties driving your car??No C an you get to places out of walking distance without help? Y es Dental: H ow would you describe the condition of your mouth and teeth, including any false teeth or dentures? E xcellent Medication List Follow-Up: D uring the past four weeks, how much bodily pain do you have? N o pain D o you have a current opioid prescription??No Self Assessment of Health: H ow would you rate your overall health the past four weeks? E xcellent H ow confident are you that you can control and manage most of your health problems? V zulema confident H ow have things been going for you during the past four weeks? V zulema well; could hardly be better D uring the past four weeks, was someone available to help you if you needed and wanted help? Y es, as much as I wanted (Example: if you felt nervous, lonely, or blue; got sick and had to stay in bed; needed someone to talk to; help with daily chores; or needed help just taking care of yourself) D o you have any sexual problems? N o D o you have any troubles eating well? N o D o you have any problems with tiredness or fatigue? N o H ave you noticed any hearing difficulties??No Sun Exposure: D o you protect yourself from over exposure to the sun when outdoors? Y es Mental Wellness: D uring the past four weeks, how much have you been bothered by emotional problems such as feeling anxious, depressed, irritable, sad, or downhearted and blue? N ot at all D uring the past four weeks, has your physical and emotional health limited your social activities with family, friends, neighbors, or groups??Not at all Functional Ability and Safety Screening: D o you need assistance with any of the following? Select all that apply. N one D oes your home have rugs in the hallway, lack grab bars in the bathroom, lack handrails on the stairs or have poor lighting? N o D o you feel unsteady and/or dizzy when standing or walking? N o D o you have smoke detectors in your home and routinely change the batteries? Y es D o you have a fire extinguisher and know how to use it properly? Y es D o you have any problems with your living situation, food, transportation, utilities, or safety? N o Cognitive Screening: H ave you experienced any memory issues or problems with thinking? N o H ave your family members, friends, caretakers, or others raised any concerns? N o D o you get confused or easily distracted more than you used to? N o H as your ability to concentrate seem to have declined recently? N o End of Life Planning: D o you have a living will? Y es D o you have a Durable Power of Foreign Banknote Teller Trader? Y es W ould you like to discuss this topic today??Yes SDOH A gree to complete Social Determinants of Health questionnaire Y es W ithin the past 12 months, did you worry that your food would run out before you got money to buy more? N o W ithin the past 12 months, did the food you bought just not last and you didn't have money to buy more? N o W ithin the past 12 months, have you ever stayed: outside, in a car, in a a tent, in an overnight custodial, or temporarily in someone else's home??No A re you worried about losing your housing??No W ithin the past 12 months, have you been able to get utilities (heat, electricity) when it was really needed? N o W ithin the past 12 months, has a lack of transportation kept you from medical appointments or from doing things needed for daily living? N o D o you feel physically or emotionally unsafe where you currently live? N o W ould you like help with any of these needs that you have identified? N o * Medical History: A rthritis, Inguinal hernia, Diverticular disease. * Surgical History: H ysterectomy 1988, Tonsillectomy 1963, Carpal Tunnel 2001, Right Knee Surgery 11/12/15, Left Knee Surgery 01/12/16, Hernia Repair , EGD 11/24/2023, gallbladder removed 12/13/23, Colonoscopy, polyp x3- Dr Diggs 03/2024, EGD 05/10/24. * Family History: F ather: , COPD. M other: , COPD, colon cancer, diagnosed with Other malignant neoplasm of unspecified site, Unspecified essential hypertension. B alla(s): alive. S ister(s): alive, COPD. S on(s): alive. D aughter(s): alive. 3 brother(s) , 4 sister(s) - healthy. 1 son(s) , 2 daughter(s) - healthy. . * Social History: T obacco Use: T obacco Use/Smoking P atient is a n onsmoker D rug/Alcohol: A MARLINE-C (Standard) D id you have a drink containing alcohol in the past year? N o P oints 0 I nterpretation N egative * Medications: T aking RABEprazole Sodium 20 MG Tablet Delayed Release 1 tablet after a meal Orally Once a day , Medication List reviewed and reconciled with the patient * Allergies: L evaquin: severe muscle aches - Side Effects - Criticality High, NSAIDs: GI INTOLERANCE - Allergy - Criticality High, Sucralfate: GI intolerance - Allergy - Criticality High. Objective: * Vitals: W t:156lbs, Ht: 61 in, BP:112/78mm Hg, BMI:29.47Index, Ht-cm: 154.94 cm, Wt-k.76 kg. Assessment: * Assessment: 1. [facility] for Medicare annual wellness exam - Z00.00 patient presents to the [facility] for a subsequent medicare wellness appointment. a depression screening/anxiety screening/ safety screening was completed without concerns, SLUMS memory test was completed and the patient scored a 30/30, vision test was completed and the patient scored 20/20, patient was happy a pleasant, vaccines were up to date and the patient was due for yearly labs which were ordered Plan: * Treatment: 2. O thers L AB: OCCULT BLOOD, FECAL, IMMUNOASSAY * Procedure Codes: G 0439 ANNUAL WELLNESS, SUBSEQ * Preventive Medicine: Screenings/Counseling: B WI ACTION PLAN Above Normal BMI Follow-up D ietary management education, guidance, and counseling F ALL RISK SCREENING Fall Risk Assessment: N o falls in the past year Are you afraid of falling? N o * * Electronic signature of Stanton Kaufman MD, [id number] on 08/29/2024 at 07:45 AM EDT Sign off status: Pending Visit Status: Rose BENDER (Check Out) * Provider: Jacey Kaufman ([facility])MD Date: 08/23/2024 Generated for Jason lehman/Brittany/Casa on: 08/29/2024 07:45 AM EDT History and Physical Notes * HPI (History of Present Illness) Category Sub-Category Detail Notes Category Not es Medicare Annual Wellness Visit Type of Visit: Subsequent Annual Wellness Visit (SAWV) Cognitive Screening: Have you experience d any memory issues or problems with thinking?: No Have your family members, fr iends, caretakers, or others raised any concerns?: No Do you get confused or easily distracted more than you used to?: No Has your ability to concentrate seem to have declined recently?: No Self Assessment of Health: How would you rate your overall health the past four weeks?: Excellent How confident are you that y ou can control and manage most of your health problems?: Very confident How have things been going f or you during the past four weeks?: Very well; could hardly be better During the past four weeks, was someone available to help you if you needed and wanted help?: Yes, as much as I wanted (Example: if you felt nervous, lonely, o r blue; got sick and had to stay in bed; needed someone to talk to; help with daily chores; or needed help just taking care of yourself) Do you have any sexual problems?: No Do you have any troubles eating well?: N o Do you have any problems wit h tiredness or fatigue?: No Have you noticed any hearing difficulties?: No Physical Activity: Do you exercise regularly?: Y es Type of exercise:: ___ Frequency:: ___ Functional Ability and Safety Screening: Do you need assistance with any of the following? Select all that apply.: None Does your home have rugs in the hallway, lack grab bars in the bathroom, lack handrails on the stairs or have poor lighting?: No Do you feel unsteady and/or dizzy when s tanding or walking?: No Do you have smoke detectors in your home and routinely change the batteries?: Yes Do you have a fire extinguisher and know how to use it properly?: Yes Do you have any problems wit h your living situation, food, transportation, utilities, or safety?: No Visual Acuity: N/A Nutrition/Diet: On a typical day, ho w many servings of fruits and vegetables do you consume?: 0 In a typical week, how many servings of fried or high fat (such as cheese, fatty meat) do you consume?: 0 In a typical week, how many servings of high fiber or whole grain foods do you consume?: 0 Seat Belt: Do you always use your seat belt in your car?: Yes Are you having difficulties driving your car?: No Can you get to places out of walking dis tance without help?: Yes Dental: How would you descri be the condition of your mouth and teeth, including any false teeth or dentures?: Excellent Medication List Follow-Up: During the st four weeks, how much bodily pain do you have?: No pain Do you have a current opioid prescriptio n?: No Mental Wellness: During the past four weeks, how much have you been bothered by emotional problems such as feeling anxious, depressed, irritable, sad, or downhearted and blue?: Not at all During the past four weeks, has your physical and emotional health limited your social activities with family, friends, neighbors, or groups?: Not at all Sun Exposure: Do you protect yours elf from over exposure to the sun when outdoors?: Yes End of Life Planning: Do you have a living will? : Yes Do you have a Durable Power of Foreign Banknote Teller Trader? : Yes Would you like to discuss this topic tod ay?: Yes Other Providers of Care: Care Team carol nieves with patient:: Yes, and updates made in [facility] Agree to complete So [facility] Determinants of Health questionnaire: Yes Within the past 12 months, did you worry that your food would run out before you got money to buy more?: No Within the past 12 months, did the food you bought just not last and you didn't have money to buy more?: No Within the past 12 months, have you ever stayed: outside, in a car, in a a tent, in an overnight custodial, or temporarily in someone else's home?: No Are you worried about losing your housing?: No Within the past 12 months, have you been able to get utilities (heat, electricity) when it was really needed?: No Within the past 12 months, has a lack of transportation kept you from medical appointments or from doing things needed for daily living?: No Do you feel physically or emotionally unsafe where you currently live?: No Would you like help with any of these needs that you have identified?: No
--- OUTSIDE RECORDS SUMMARY | 2024-08-29 07:45 | XMS_ITS | Clinical Summary ---
Author Organization [employer] [facility] Address [id number] [address] [place] [address] Care Team Providers Care Tassel Clipper Name Role Phone Kalee Burden DO, Charles [...] Devices Not on file [place] [address] [employer] Care Teams Tassel Clipper Relationship Specialty Start Date End Date Wes Granda Jr., DO [facility] [place] [address] PCP - General Internal Medicine 09/23/16
--- OUTSIDE RECORDS SUMMARY | 2024-08-29 07:45 | XMS_ITS | Patient Health Record ---
Author Organization [facility] in [place] Address [address] [place] [address] Care Team Providers Care Stock Tracer Name Role Phone Stanton Kaufman Primary Care Provider Allergies Allergen (clinical drug ingredient) Drug/Non Drug Allergy documented on EMR Reaction Allergy Type Onset Date Status Levaquin severe muscle aches Drug Allergy Active Non-steroidal anti-inflammatory agent (FN) NSAIDs GI INTOLERANCE Drug Allergy Active sucralfate Sucralfate GI intolerance Drug Allergy Active Results Component Value Reference Range Notes US right upper quadrant Reviewed date:09/19/2023 11:16:06 AM Interpretation: Performing Lab: Notes/Report: Source Facility: [place] [address] Ultrasound Report Signed Patient: SHANIQUE CAMARGO MR#: [id number] : 1955 Acct:[id number] Age/Sex: 67 / F ADM Date: 09/17/23 Loc: US Attending Dr: Katelyn Kaufman M.D. Ordering Physician: Katelyn Kaufman M.D. Date of Service: 09/17/23 Procedure(s): US right upper quadrant Accession Number(s): [id number] cc: Katelyn Kaufman M.D. [place] [address] Patient Name: SHANIQUE CAMARGO MRN: [id number]:[id number] date: 1955 Sex: F Assigned Patient Location: US Current Patient Location: US Accession/Order Number: [id number] Exam Date: 09/17/2023 10:20 Report Date: 09/17/2023 [...] Signed By: 09/17/23 1631 DD/ 1628 TD/TT: Finishing Manager: The [address] [address] Ultrasound Report Signed Patient: SUJIT CAMARGO MR#: [id number] : 1955 Acct:[id number] Age/Sex: 67 / F ADM Date: 09/17/23 Loc: US Attending Dr: Haresh Kaufman M.D. Ordering Physician: Katelyn Kaufman M.D. Date of Service: 09/17/23 Procedure(s): US rig ht upper quadrant Accession Number(s): [id number] cc: Katelyn Kaufman M.D. [address] [address] Patient Name: SHANIQUE CAMARGO MRN: [facility]:[id number] date: 1955 Sex: F Assigned Patient Location: US Current Patient Loca tion: US Accession/Order Numb er: [id number] Exam Date: 09/17/2023 10:20 Report Date: 09/17/2023 16:28 At the request of: KATELYN KAUFMAN Procedure: US right upper quadrant EXAMINATION: US righ t upper quadrant HISTORY: Unspecified Abdominal Pain [...] Signed By: 09/17/23 1631 DD/ 1628 TD/TT: Finishing Manager: CT abdomen pelvis w con Reviewed date:09/26/2023 03:58:23 PM Interpretation: Performing Lab: Notes/Report: Source Facility: [place] [address] [place] [address] CT Scan Report Signed Patient: SHANIQUE CAMARGO MR#: [id number] : 1955 Acct:[id number] Age/Sex: 67 / F ADM Date: 09/23/23 Loc: LAB Attending Dr: Katelyn Kaufman M.D. Ordering Physician: Katelyn Kaufman M.D. Date of Service: 09/23/23 Procedure(s): CT abdomen pelvis w con Accession Number(s): [id number] cc: Katelyn Kaufman M.D. [place] [id number] Patient Name: SHANIQUE CAMARGO MRN: [id number]:[id number] date: 1955 Sex: F Assigned Patient Location: LAB Current Patient Location: Accession/Order Number: [id number] Exam Date: 09/23/2023 13:15 Report Date: 09/24/2023 [...] M.D. Signed By: 09/24/23517 DD/ 4 TD/TT: Finishing Manager: [place] [address] CT Scan Report Signed Patient: SUJIT CAMARGO MR#: [id number] : 1955 Acct:[id number] Age/Sex: 67 / F ADM Date: 09/23/23 Loc: LAB Attending Dr: Haresh Kaufman M.D. Ordering Physician: Katelyn Kaufman M.D. Date of Service: 09/23/23 Procedure(s): CT abd omen pelvis w con Accession Number(s): [id number] cc: Katelyn Kaufman M.D. [place] [address] Patient Name: SHANIQUE CAMARGO MRN: [id number]:[id number] date: 1955 Sex: F Assigned Patient Location: LAB Current Patient Location: Accession/Order Numb er: [id number] Exam Date: 09/23/2023 13:15 Report Date: 09/24/2023 [...] Dose reduction techniques were achieved by usi automated exposure control and/or adjustment of mA [...] M.D. Signed By: 09/24/23517 DD/ 4 TD/TT: Finishing Manager: MM tomosynthesis screening B I Reviewed date:10/31/2023 08:04:56 PM Interpretation: Performing Lab: Notes/Report: Source Facility: [place] [address] Mammography Report Signed Patient: SHANIQUE CAMARGO MR#: [id number] : 1955 Acct:[id number] Age/Sex: 67 / F ADM Date: 10/28/23 Loc: MAMMO Attending Dr: Katelyn Kaufman M.D. Ordering Physician: Katelyn Kaufman M.D. Results: Date of Service: 10/28/23 Follow Up: Procedure(s): MM tomosynthesis screening BI Accession Number(s): [id number] cc: Katelyn Kaufman M.D. Patient Name: SHANIQUE CAMARGO MR#: [id number] : 1955 Exam Date: 10/28/2023 Ordering Doctor: [...] at age 70. LOCATION: [facility] BREAST COMPOSITION: The breasts are almost [...] M.D. on 10/29/2023 at 16:01 Dictated By: Suhsa Holden M.D. Signed By: 10/29/23 1603 DD/ 1601 TD/TT: Finishing Manager: [place] [address] Mammography Report Signed Patient: SUJIT CAMARGO MR#: [id number] : 1955 Acct:[id number] Age/Sex: 67 / F ADM Date: 10/28/23 Loc: MAMMO Attending Dr: Haresh Kaufman M.D. Ordering Physician: Katelyn Kaufamn M.D. Results: Date of Service: 07/15 Follow Up: Procedure(s): MM tomosynthesis screening BI Accession Number(s): [id number] cc: Katelyn Kaufman M.D. Patient Name: SHANIQUE CAMARGO MR#: [id number] : 1955 Exam Date: 10/28/2023 Ordering Doctor: [...] Can cer No Treatments None Family Cancers Justine mari with colon cancer at age 70. LOCATION: The [facility] BREAST COMPOSITION: The breasts are almost entirely [...] Signed By: 10/29/23 1603 DD/ 1601 TD/TT: Finishing Manager: JESUS hepatobiliary w pharm Reviewed date:12/02/2023 07:16:07 PM Interpretation: Performing Lab: Notes/Report: Source Facility: [place] [address] [place] [address] Nuclear Medicine Report Signed with Addenda Patient: SHANIQUE CAMARGO MR#: [id number] : 1955 Acct:[id number] Age/Sex: 67 / F ADM Date: 12/02/23 Loc: US Attending Dr: Katelyn Kaufman M.D. Ordering Physician: Katelyn Kaufman M.D. Date of Service: 12/02/23 Procedure(s): JESUS hepatobiliary w pharm Accession Number(s): [id number] cc: Katelyn Kaufman M.D. ADDENDUM The [place] [address] Patient Name: SHANIQUE CAMARGO MRN: [facility]:[id number] date: 1955 Sex: F Assigned Patient Location: Current Patient Location: US Accession/Order Number: [id number] Exam Date: 12/02/2023 08:00 Report Date: 12/02/2023 [...] By: <Electronically signed by Suhas Holden M.D.> 12/02/231510 Addendum Cosigned By: DD/ /15/1502 TD/TT: / ADDENDUM NM/NM hepatobiliary w pharm IMPRESSION: 1. Abnormal gallbladder emptying suggestive of dyskinesia or ball-valve type obstruction. Electronically authenticated by: SUHAS HOLDEN Date: 12/02/2023 15:03 Addendum Dictated By: Suhas Holden M.D. Addendum Signed By: <Electronically signed by Suhas Holden M.D.> 12/02/231510 Addendum Cosigned By: DD/ /15/1502 TD/TT: / [place] [address] Patient Name: SHANIQUE CAMARGO MRN: [id number]:[id number] date: 1955 Sex: F Assigned Patient Location: US Current Patient Location: US Accession/Order Number: [id number] Exam Date: 12/02/2023 08:00 Report Date: 12/02/2023 [...] Signed By: 12/02/23 1305 DD/ 1303 TD/TT: Finishing Manager: [place] [address] Nuclear Medicine Report Signed with Addenda Patient: SUJIT CAMARGO MR#: [id number] : 1955 Acct:[id number] Age/Sex: 67 / F ADM Date: 12/02/23 Loc: Attending Dr: Haresh Kaufman M.D. Ordering Physician: Katelyn Kaufman M.D. Date of Service: 12/02/23 Procedure(s): NM hepatobiliary w pharm Accession Number(s): [id number] cc: Katelyn Kaufman M.D. ADDENDUM The [place] [id number] Patient Name: SHANIQUE CAMARGO MRN: [id number] date: 1955 Sex: F Assigned Patient Location: US Current Patient Loca tion: US Accession/Order Numb er: [id number] Exam Date: 08:00 Report Date: 12/02/2023 15:03 At the request of: KATELYN KAUFMAN Procedure: NM hepatobiliary w pharm Begin Addendum #1 CORRECTION: Under technique dose should've stated 4. 9 mCi technetium 99m (voice-recognition e rror original report). Original Report EXAMINATION: NM hepatobiliary w pharm HISTORY: ABDOMINAL P AIN [...] By: <Electronically signed by Suhas Holden M.D.> 12/02/231510 Addendum Cosigned By: DD/ /15/1502 TD/TT: / ADDENDUM N M/NM hepatobiliary w pharm IMPRESSION: 1. Abnormal gallblad husam emptying suggestive of dyskinesia or ball-valve type obstruction. Electronically authenticated by: SUHAS HOLDEN Date: 12/02/2023 15:03 Addendum Dictated By : Suhas Holden M.D. Addendum Signed By: <Electronically signed by Suhas Holden M.D.> 12/02/231510 Addendum Cosigned By: DD/ /15/1502 TD/TT: / [address] [address] Patient Name: SHANIQUE CAMARGO MRN: [id number] date: 1955 Sex: F Assigned Patient Location: US Current Patient Loca tion: US Accession/Order Numb er: [id number] Exam Date: 08:00 Report Date: 12/02/2023 13:03 At the request of: KATELYN KAUFMAN Procedure: NM hepatobiliary w pharm EXAMINATION: NM hepatobiliary w pharm HISTORY: ABDOMINAL P AIN [...] Dictated By: Suhas Holden M.D. Signed By: 12/02/231304 DD/ 02 TD/TT: Finishing Manager: CT abdomen pelvis w con Reviewed date:01/09/2024 01:25:50 PM Interpretation: Performing Lab: Notes/Report: Source Facility: [address] [address] [address] Scan Report Signed Patient: SHANIQUE CAMARGO MR#: [id number] : 1955 Acct:[id number] Age/Sex: 68 / F ADM Date: 01/07/24 Loc: ER Attending Dr: Ordering Physician: [place] Mckeon Date of Service: 01/07/24 Procedure(s): CT abdomen pelvis w con Accession Number(s): [id number] cc: Katelyn Kaufman M.D. [place] [address] Patient Name: SHANIQUE CAMARGO MRN: [facility]:[id number] date: 1955 Sex: F Assigned Patient Location: ER Current Patient Location: ED.MAIN Accession/Order Number: [id number] Exam Date: 01/07/2024 08:15 Report Date: 01/07/2024 [...] Suhas Holden M.D. Signed By: 01/07/24900 DD/ 7 TD/TT: Finishing Manager: [place] [address] CT Scan Report Signed Patient: SUJIT CAMARGO MR#: [id number] : 1955 Acct:[id number] Age/Sex: 68 / F ADM Date: 01/07/24 Loc: ER Attending Dr: Ordering Physician: Dana Mckeon Date of Service: 01/07/24 Procedure(s): CT abd omen pelvis w con Accession Number(s): [id number] cc: Katelyn Kaufman M.D. [address] [address] Patient Name: SHANIQUE CAMARGO MRN: [facility]:[id number] date: 1955 Sex: F Assigned Patient Location: ER Current Patient Loca tion: ED.MAIN Accession/Order Numb er: [id number] Exam Date: 08:15 Report Date: 01/07/2024 08:58 [...] Dictated By: Suhas Holden M.D. Signed By: 01/07/24 0901 DD/ 0858 TD/TT: Finishing Manager: CBC AUTO DIFF Reviewed date:03/06/2024 01:15:20 PM Interpretation: Performing Lab: Notes/Report: [facility] , White Blood Count 8.5 4.0-11.0 [...] Performing Lab: see note ML - [facility] LB US abdomen complete Reviewed date:04/16/2024 08:37:05 AM Interpretation: Performing Lab: Notes/Report: Source Facility: [place] [address] Ultrasound Report Signed Patient: SHANIQUE CAMARGO MR#: [id number] : 1955 Acct:[id number] Age/Sex: 68 / F ADM Date: 02/11/24 Loc: US Attending Dr: Katelyn Kaufman M.D. Ordering Physician: Katelyn Kaufman M.D. Date of Service: 02/11/24 Procedure(s): US abdomen complete Accession Number(s): [id number] cc: Katelyn Kaufman M.D. [place] [address] Patient Name: SHANIQUE CAMARGO MRN: [id number] date: 1955 Sex: F Assigned Patient Location: US Current Patient Location: LAB Accession/Order Number: [id number] Exam Date: 02/11/2024 07:30 Report Date: 02/11/2024 [...] Signed By: 04/13/24 1228 DD/ 1052 TD/TT: Finishing Manager: The [address] [address] Ultrasound Report Signed Patient: SUJIT CAMARGO MR#: [id number] : 1955 Acct:[id number] Age/Sex: 68 / F ADM Date: 02/11/24 Loc: US Attending Dr: Haresh Kaufman M.D. Ordering Physician: Katelyn Kaufman M.D. Date of Service: 02/11/24 Procedure(s): US abd omen complete Accession Number(s): [id number] cc: Katelyn Kaufman M.D. [address] [address] Patient Name: SHANIQUE CAMARGO MRN: [facility]:[id number] date: 1955 Sex: F Assigned Patient Location: US Current Patient Loca tion: LAB Accession/Order Numb er: [id number] Exam Date: 07:30 Report Date: 02/11/2024 10:52 [...] Signed By: 04/13/24 1228 DD/ 1052 TD/TT: Finishing Manager: Troponin I High Sensitivity Reviewed date:01/09/2024 01:25:50 PM Interpretation: Performing Lab: Notes/Report: [facility] , Troponin I High Sensitivity 5.9 4.0-51.3 pg/mL PERCENTILE OF cTnI DISTRIBUTION IN A REFERENCE POPULATION, NOTE: HIGH-SENSITIVITY TROPONIN ASSAY IS NOT INTENDED TO BE WITH OTHER DIAGNOSTIC AND CLINICAL INFORMATION. HAS BEEN CONFIRMED THE DECISION THRESHOLD FOR [place] CUT-OFF POINTS HAVE BEEN ESTABLISHED BASED ON THE FOURTH DIAGNOSIS. UNIVERSAL DEFINITION OF MYOCARDIAL INFARCTION. THE UPPER REFERENCE LIMIT (URL) OF TROPONIN, DEFINED THE 99TH 99TH PERCENTILE = 51.4 PG/ML USED IN ISOLATION BUT SHOULD BE INTERPRETED IN CONJUNCTION Performing Lab: see note ML - [facility] LB PROF 14(COMP METB) Reviewed date:01/09/2024 01:25:50 PM Interpretation: Performing Lab: Notes/Report: [facility] , Sodium 143 136-145 mmol/L Potassium [...] 1.1 Performing Lab: see note ML - [facility] LB LIPASE Reviewed date:01/09/2024 01:25:50 PM Interpretation: Performing Lab: Notes/Report: [facility] , Lipase 31.0 16.0-77.0 U/L Performing Lab: see note ML - [facility] LB LACTATE or LACTIC ACID Reviewed date:01/09/2024 01:25:50 PM Interpretation: Performing Lab: Notes/Report: [facility] , Lactate/Lactic Acid 0.6 0.4-2.0 mmol/L Performing Lab: see note ML - [facility] LB CBC AUTO DIFF Reviewed date:01/09/2024 01:25:50 PM Interpretation: Performing Lab: Notes/Report: [facility] , White Blood Count 7.4 4.0-11.0 [...] Performing Lab: see note ML - [facility] LB ECG 12 lead Reviewed date:12/12/2023 04:06:54 PM Interpretation: Performing Lab: Notes/Report: Source Facility: [facility]-[address] [place] [address] [place] [address] Electrocardiograph Report Signed Patient: SHANIQUE CAMARGO MR#: [id number] : 1955 Acct:[id number] Age/Sex: 67 / F ADM Date: 12/10/23 Loc: PST Attending Dr: Kamron Hayden D.O. Ordering Physician: Kala Asencio NP Date of Service: 12/10/23 Procedure(s): ECG 12 lead Accession Number(s): [id number] cc: [facility] Test Date: 2023-12-10 Pat Name: SHANIQUE CAMARGO Department: Room: - Gender: Female Family Practitioner: : 1955 Requested By: KATELYN KAUFMAN Order Number: [id number] Reading MD: RANDELL HERNANDEZ Measurements Intervals [place] Rate: 67 P: 35 MN: 144 QRS: 44 QRSD: 87 T: 30 QT: 371 QTc: 394 Interpretive Statements SINUS RHYTHM Compared to ECG 08/22/2020 11:34:46 Right-axis deviation no longer present Electronically Signed On 12-12-2023 12:39:01 EDT by RANDELL HERNANDEZ Dictated By: Randell Hernandez D.O. Signed By: 12/12/23 1239 DD/ 1421 TD/TT: Finishing Manager: [place] [address] Electrocardiograph Report Signed Patient: SUJIT CAMARGO MR#: [id number] : 1955 Acct:[id number] Age/Sex: 67 / F ADM Date: 12/10/23 Loc: [facility] Attending Dr: Kamron Hayden D.O. Ordering Physician: Kala Asencio NP Date of Service: 12/10/23 Procedure(s): ECG 12 lead Accession Number(s): [id number] cc: [facility] Test Date: 2023-12-10 Pat Name: SHANIQUE BARR Department: 49 Room: - Gender: Female Family Practitioner: : 1955 Requ ested By: KATELYN KAUFMAN Order Number: [id number] Reading MD: RANDELL HERNANDEZ Measurements Intervals [place] Rate: 67 P: 35 MN: 144 QRS: 44 QRSD: 87 T: 30 QT: 371 QTc: 394 Interpretive Statements SINUS RHYTHM Compared to ECG 08/22/2020 11:34:46 Right-axis deviation no longer present Electronically Della d On 12-12-2023 12:39:01 EDT by RANDELL HERNANDEZ Dictated By: Randell Hernandez D.O. Signed By: 12/12/23 1239 DD/ 1421 TD/TT: Finishing Manager: Campylobacter Culture Reviewed date:10/17/2023 09:23:42 PM Interpretation: Performing Lab: Notes/Report: [facility] , Campylobacter Culture See Below For Report No Campylobacter species isolated. Campylobacter Culture Performing Lab: see note [facility] LB Salmonella/Shigella Screen Reviewed date:10/17/2023 09:23:42 PM Interpretation: Performing Lab: Notes/Report: [facility] , Salmonella/Shigella Screen See Below For Report Salmonella/Shigella Screen Salmonella/Shigella Screen No Salmonella or Shigella recovered. Salmonella/Shigella Screen Performing Lab: see note [facility] LB E coli Shiga Toxin EIA Reviewed date:10/17/2023 09:23:42 PM Interpretation: Performing Lab: Notes/Report: [facility] , E coli Shiga Toxin EIA See Below For Report E coli Shiga Toxin EIA WILL FOLLOW E coli Shiga Toxin EIA Negative E coli Shiga Toxin EIA WILL FOLLOW E coli Shiga Toxin EIA Performed at: [facility] E coli Shiga Toxin EIA WILL FOLLOW E coli Shiga Toxin EIA [address], [place] [id number] E coli Shiga Toxin EIA WILL FOLLOW E coli Shiga Toxin EIA Supervisor Machine Workers: Jose Alejandro Benjamin PhD, Phone: [phone] E coli Shiga Toxin EIA WILL FOLLOW Performing Lab: see note SEE REPORT - [employer] Id information not found for 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 Difficile PCR Reviewed date:10/12/2023 07:29:51 PM Interpretation: Performing Lab: Notes/Report: [facility] , C. Difficile PCR NEGATIVE NEGATIVE Performing Lab: see note - [facility] LB CREATININE Reviewed date:09/23/2023 07:03:55 PM Interpretation: Performing Lab: Notes/Report: [facility] , Creatinine 0.66 0.55-1.02 mg/dL Estimated GFR ( Shireen >60 >=60 Estimated GFR (Non- Isela >60 >=60 Performing Lab: see note - [facility] LB US abdomen complete Reviewed date:12/02/2023 09:52:22 AM Interpretation: Performing Lab: Notes/Report: Source Facility: [facility], [place] [id number] Ultrasound Report Signed Patient: SHANIQUE CAMARGO MR#: [id number] : 1955 Acct:[id number] Age/Sex: 67 / F ADM Date: 12/02/23 Loc: US Attending Dr: Katelyn Kaufman M.D. Ordering Physician: Katelyn Kaufman M.D. Date of Service: 12/02/23 Procedure(s): US abdomen complete Accession Number(s): [id number] cc: Katelyn Kaufman M.D. [place] [address] Patient Name: SHANIQUE CAMARGO MRN: [facility]:[id number] date: 1955 Sex: F Assigned Patient Location: US Current Patient Location: US Accession/Order Number: [id number] Exam Date: 12/02/2023 07:46 Report Date: 12/02/2023 [...] M.D. Signed By: 12/02/23901 DD/ 8 TD/TT: Finishing Manager: [place] [address] Ultrasound Report Signed Patient: SUJIT CAMARGO MR#: [id number] : 1955 Acct:[id number] Age/Sex: 67 / F ADM Date: 12/02/23 Loc: US Attending Dr: Haresh Kaufman M.D. Ordering Physician: Katelyn Kaufman M.D. Date of Service: 12/02/23 Procedure(s): US abd omen complete Accession Number(s): [id number] cc: Katelyn Kaufman M.D. [place] [id number] Patient Name: SHANIQUE CAMARGO MRN: [id number] date: 1955 Sex: F Assigned Patient Location: US Current Patient Loca tion: US Accession/Order Numb er: [id number] Exam Date: 07:46 Report Date: 12/02/2023 08:59 [...] M.D. Signed By: 12/02/23901 DD/ 8 TD/TT: Finishing Manager: ROMULO (Urinalysis, Dipstix only - w/o micro) Reviewed [...] ESTERASE (FERNANDA) - NEG - NEG MG/DL UA DIP NONAUTO WO MICRO (810 02) - IN OFFICE Reviewed date:07/26/2024 09:09:48 PM Interpretation: Performing Lab: Notes/Report: COLOR yellow CLARITY cloudy GLUCOSE n BILIRUBIN n KETONE small SPECIFIC GRAVITY 1.015 BLOOD +++ PH 5 PROTEIN 30+ UROBILINOGEN n NITRITE + LEUKOCYTE ESTERASE ++ MR angio abdomen wo con Reviewed date:04/26/2024 09:04:53 PM Interpretation: Performing Lab: Notes/Report: Source Facility: [place] [address] [place] [address] Magnetic Resonance Report Signed Patient: SHANIQUE CAMARGO MR#: [id number] : 1955 Acct:[id number] Age/Sex: 68 / F ADM Date: 04/26/24 Loc: MRI Attending Dr: Katelyn Kaufman M.D. Ordering Physician: Katelyn Kaufman M.D. Date of Service: 04/26/24 Procedure(s): MR angio abdomen wo con Accession Number(s): [id number] cc: Katelyn Kaufman M.D. [place] [address] Patient Name: SHANIQUE CAMARGO MRN: [id number] date: 1955 Sex: F Assigned Patient Location: MRI Current Patient Location: MRI Accession/Order Number: [id number] Exam Date: 04/26/2024 15:43 Report Date: 04/26/2024 15:50 At the request of: KATELYN KAUFMAN MD Procedure: MR angio abdomen wo con MRA of the abdomen without IV contrast. Reason for exam: Chronic abdominal pain COMPARISON: CT abdomen and pelvis 01/07/2024. TECHNIQUE: Multisequence, multiplanar imaging of the abdomen was obtained. Additional iplc-ck-mjzbhj imaging of the aorta and its major [...] Glasgow Jr., D.O.04/26/2024 3:50 PM Dictation Location: [place] [address] Electronically authenticated by: [id number] Y Date: 04/26/2024 15:50 Dictated By: Yordy Glasgow M.D. Signed By: 04/26/241551 DD/ 49 TD/TT: Finishing Manager: [place] [address] Magnetic Resonance Report Signed Patient: SUJIT CAMARGO MR#: [id number] : 1955 Acct:[id number] Age/Sex: 68 / F ADM Date: 04/26/24 Loc: MRI Attending Dr: Haresh Kafuman M.D. Ordering Physician: Katelyn Kaufman M.D. Date of Service: 04/26/24 Procedure(s): MR ang io abdomen wo con Accession Number(s): [id number] cc: Katelyn Kaufman M.D. [place] [id number] Patient Name: SHANIQUE CAMARGO MRN: [id number]:[id number] date: 1955 Sex: F Assigned Patient Location: MRI Current Patient Loca tion: MRI Accession/Order Numb er: [id number] Exam Date: 04/26/2024 15:43 Report Date: 04/26/2024 [...] recommended. Impression dictated by: Yordy Glasgow Jr., DArpitaOArpita04/26/2024 3:50 PM Dictation Location: [place] [address] Electronically authenticated by: [id number] Y Date: 04/26/2024 15:50 Dictated By: Yordy Glasgow M.D. Signed By: 04/26/24 1552 DD/ 1550 TD/TT: Finishing Manager: LIPASE Reviewed date:03/06/2024 01:15:20 PM Interpretation: Performing Lab: Notes/Report: [facility] , Lipase 37.0 16.0-77.0 U/L Performing Lab: see note ML - [facility] LB AMYLASE Reviewed date:03/06/2024 01:15:20 PM Interpretation: Performing Lab: Notes/Report: [facility] , Amylase 46 25-115 U/L Performing Lab: see note ML - [facility] LB FL upper GI w air Reviewed date:11/09/2023 02:09:24 PM Interpretation: Performing Lab: Notes/Report: Source Facility: [facility]-[address] [place] [address] [place] [address] Fluoroscopy Report Signed Patient: SHANIQUE CAMARGO MR#: [id number] : 1955 Acct:[id number] Age/Sex: 67 / F ADM Date: 11/09/23 Loc: [place] Attending Dr: Katelyn Kaufman M.D. Ordering Physician: Katelyn Kaufman M.D. Date of Service: 11/09/23 Procedure(s): FL upper GI w air Accession Number(s): [id number] cc: Katelyn Kaufman M.D. The [place] [id number] Patient Name: SHANIQUE CAMARGO MRN: [id number]:[id number] date: 1955 Sex: F Assigned Patient Location: OR Current Patient Location: OR Accession/Order Number: [id number] Exam Date: 11/09/2023 08:03 Report Date: 11/09/2023 [...] M.D. Signed By: 11/09/23911 DD/ 8 TD/TT: Finishing Manager: [place] [address] Fluoroscopy Report Signed Patient: SUJIT CAMARGO MR#: [id number] : 1955 Acct:[id number] Age/Sex: 67 / F ADM Date: 11/09/23 Loc: [place] Attending Dr: Haresh Kaufman M.D. Ordering Physician: Katelyn Kaufman M.D. Date of Service: 11/09/23 Procedure(s): FL upp er GI w air Accession Number(s): [id number] cc: Katelyn Kaufman M.D. The [place] [address] [place] [address] Patient Name: SHANIQUE CAMARGO MRN: [facility]:[id number] date: 1955 Sex: F Assigned Patient Location: OR Current Patient Loca tion: FL Accession/Order Numb er: [id number] Exam Date: 11/09/2023 08:03 Report Date: 11/09/2023 [...] M.D. Signed By: 11/09/23911 DD/ 8 TD/TT: Finishing Manager: PROF Pabon(COMP METB) Reviewed date:10/12/2023 02:30:58 PM Interpretation: Performing Lab: Notes/Report: [facility] , Sodium 140 136-145 mmol/L Potassium [...] 1.3 Performing Lab: see note ML - [facility] LB LIPASE Reviewed date:10/12/2023 02:30:58 PM Interpretation: Performing Lab: Notes/Report: [facility] , Lipase 38.0 16.0-77.0 U/L Performing Lab: see note ML - [facility] LB CBC AUTO DIFF Reviewed date:10/12/2023 02:30:58 PM Interpretation: Performing Lab: Notes/Report: [facility] , White Blood Count 6.4 4.0-11.0 [...] 3/uL Performing Lab: see note ML - [facility] AMYLASE Reviewed date:10/12/2023 02:30:58 PM Interpretation: Performing Lab: Notes/Report: [facility] , Amylase 42 25-115 U/L Performing Lab: see note - [facility] LB XR KNEE RT 3V Reviewed date:08/10/2024 06:48:32 PM Interpretation: Performing Lab: Notes/Report: Source Facility: [place] [address] XRay Report Signed Patient: SHANIQUE CAMARGO MR#: [id number] : 1955 Acct:[id number] Age/Sex: 68 / F ADM Date: 08/10/24 Loc: ER Attending Dr: Ordering Physician: Nikki Paulino Date of Service: 08/10/24 Procedure(s): XR knee RT 3V Accession Number(s): [id number] cc: Katelyn Kaufman M.D.; Nikki Paulino [place] [address] Patient Name: SHANIQUE CAMARGO MRN: [id number] date: 1955 Sex: F Assigned Patient Location: ER Current Patient Location: ER Accession/Order Number: [id number] Exam Date: 08/10/2024 08:06 Report Date: 08/10/2024 08:08 At the request of: NIKKI PAULINO MD Procedure: XR knee RT 3V RIGHT KNEE - 3 views COMPARISON: None CLINICAL DATA: Right knee pain. Previous hemiarthroplasty. AP, lateral and internal oblique views were obtained. There is osteopenia. There is prior medial knee hemiarthroplasty. No acute fracture or dislocation is identified. There is marginal spurring at the lateral and patellofemoral joint compartments. There might be a trace amount joint fluid. No focal soft tissue swelling is noted. XR/XR knee RT 3V IMPRESSION: OSTEOPENIA, POSTOPERATIVE AND DEGENERATIVE CHANGES. NO ACUTE BONY FINDINGS. Impression dictated by: Xiomara Mckoy M.D. 08/10/2024 8:08 AM Dictation Location: [place] [address] Electronically authenticated by: [id number] Y Date: 08/10/2024 08:08 Dictated By: Xiomara Mckoy M.D. Signed By: 08/10/24810 DD/ 7 TD/TT: Finishing Manager: [place] [address] XRay Report Signed Patient: SUJIT CAMARGO MR#: [id number] : 1955 Acct:[id number] Age/Sex: 68 / F ADM Date: 08/10/24 Loc: ER Attending Dr: Ordering Physician: Nikki Paulino Date of Service: 08/10/24 Procedure(s): XR kne e RT 3V Accession Number(s): [id number] cc: Katelyn Kaufman M.D. ; Nikki Paulino [place] [id number] Patient Name: SHANIQUE CAMARGO MRN: [id number] date: 1955 Sex: F Assigned Patient Location: ER Current Patient Loca tion: ER Accession/Order Numb er: [id number] Exam Date: 08/10/2024 08:06 Report Date: 08/10/2024 08:08 At the request of: NIKKI PAULINO MD Procedure: XR knee RT 3V RIGHT KNEE - 3 views COMPARISON: None CLINICAL DATA: Right knee pain. Previous hemiarthroplasty. AP, lateral and inte rnal oblique views were obtained. There is osteopenia. There is prior media l knee hemiarthroplasty. No acute fracture or dislocation is identified. There is marginal spurring at the lateral and patellofemoral joint compartments. There might be a trace amount joint fluid. No focal soft tissue swelling is noted. X R/XR knee RT 3V IMPRESSION: OSTEOPENIA, POSTOPER ATIVE AND DEGENERATIVE CHANGES. NO ACUTE BONY FINDINGS. Impression dictated by: Xiomara Mckoy M.D. 08/10/2024 8:08 AM Dictation Location: [place] [address] Electronically authenticated by: [id number] Y Date: 08/10/2024 08:08 Dictated By: Xiomara Mckoy M.D. Signed By: 08/10/24 0811 DD/ 0808 TD/TT: Finishing Manager: XR shoulder RT min 2V Reviewed date:07/26/2024 09:09:48 PM Interpretation: Performing Lab: Notes/Report: Source Facility: [place] [address] XRay Report Signed Patient: SHANIQUE CAMARGO MR#: [id number] : 1955 Acct:[id number] Age/Sex: 68 / F ADM Date: 07/25/24 Loc: RAD Attending Dr: Katelyn Kaufman M.D. Ordering Physician: Katelyn Kaufman M.D. Date of Service: 07/25/24 Procedure(s): XR shoulder RT min 2V Accession Number(s): [id number] cc: Katelyn Kaufman M.D. [place] [address] Patient Name: SHANIQUE CAMARGO MRN: [id number] date: 1955 Sex: F Assigned Patient Location: [facility] Current Patient Location: [facility] Accession/Order Number: [id number] Exam Date: 07/25/2024 17:31 Report Date: 07/25/2024 17:31 At the request of: KATELYN KAUFMAN MD Procedure: XR shoulder RT min 2V 3 views right shoulder plain film HISTORY: Acute right shoulder pain COMPARISON: None ACUTE FINDINGS: None DEGENERATIVE CHANGE: Unremarkable SOFT TISSUE FINDINGS: Unremarkable JOINT EFFUSION: None POSTOP CHANGES: None BONY MINERALIZATION: Adequate XR/XR shoulder RT min 2V IMPRESSION: No acute findings. Impression dictated by: Dana Dhillon M.D. 07/25/2024 5:31 PM Dictation Location: [facility] Electronically authenticated by: [id number] Y Date: 07/25/2024 17:31 Dictated By: Dana Dhillon D.O. Signed By: 07/25/241733 DD/ 30 TD/TT: Finishing Manager: [place] [address] XRay Report Signed Patient: SUJIT CAMARGO MR#: [id number] : 1955 Acct:[id number] Age/Sex: 68 / F ADM Date: 07/25/24 Loc: RAD Attending Dr: Haresh Kaufman M.D. Ordering Physician: Katelyn Kaufman M.D. Date of Service: 07/25/24 Procedure(s): XR madelyn ulder RT min 2V Accession Number(s): [id number] cc: Katelyn Kaufman M.D. [place] [address] Patient Name: SHANIQUE CAMARGO MRN: [id number] date: 1955 Sex: F Assigned Patient Location: [facility] Current Patient Loca tion: RAD Accession/Order Numb er: [id number] Exam Date: 07/25/2024 17:31 Report Date: 07/25/2024 17:31 At the request of: KATELYN KAUFMAN MD Procedure: XR should er RT min 2V 3 views right should er plain film HISTORY: Acute right shoulder pain COMPARISON: None ACUTE FINDINGS: None DEGENERATIVE CHANGE: Unremarkable SOFT TISSUE FINDINGS : Unremarkable JOINT EFFUSION: None POSTOP CHANGES: None BONY MINERALIZATION: Adequate X R/XR shoulder RT min 2V IMPRESSION: No acute findings. Impression dictated by: Dana Dhillon M.D. 07/25/2024 5:31 PM Dictation Location: [facility] Electronically authenticated by: [id number] Y Date: 07/25/2024 17:31 Dictated By: Joe Dhillon D.O. Signed By: 07/25/241733 DD/ 30 TD/TT: Finishing Manager: [facility] hepatobiliary wo pharm Reviewed date:03/01/2024 06:55:03 PM Interpretation: Performing Lab: Notes/Report: Source Facility: [place] [address] [place] [address] Nuclear Medicine Report Signed Patient: SHANIQUE CAMARGO MR#: [id number] : 1955 Acct:[id number] Age/Sex: 68 / F ADM Date: 03/01/24 Loc: JESUS Attending Dr: Katelyn Kaufman M.D. Ordering Physician: Katelyn Kaufman M.D. Date of Service: 03/01/24 Procedure(s): JESUS hepatobiliary wo pharm Accession Number(s): [id number] cc: Katelyn Kaufman M.D. [place] [address] Patient Name: SHANIQUE CAMARGO MRN: [id number] date: 1955 Sex: F Assigned Patient Location: OR Current Patient Location: OR Accession/Order Number: [id number] Exam Date: 03/01/2024 06:40 Report Date: 03/01/2024 09:55 At the request of: KATELYN KAUFMAN Procedure: JESUS hepatobiliary wo pharm EXAMINATION: JESUS hepatobiliary wo pharm HISTORY: ABDOMINAL PAIN COMPARISON: [...] of common biliary ductal obstruction. OTHER: Negative. NM/[facility] hepatobiliary wo pharm IMPRESSION: No evidence of a biliary leak Electronically authenticated by: EDMOND CAAL Date: 03/01/2024 09:55 Dictated By: Edmond Caal M.D. Signed By: 03/01/2458 DD/ 4 TD/TT: Finishing Manager: [place] [address] Nuclear Medicine Report Signed Patient: SUJIT CAMARGO MR#: [id number] : 1955 Acct:[id number] Age/Sex: 68 / F ADM Date: 03/01/24 Loc: NM Attending Dr: Haresh Kaufman M.D. Ordering Physician: Katelyn Kaufman M.D. Date of Service: 03/01/24 Procedure(s): OR hepatobiliary wo pharm Accession Number(s): [id number] cc: Katelyn Kaufman M.D. [place] [address] Patient Name: SHANIQUE CAMARGO MRN: [id number] date: 1955 Sex: F Assigned Patient Location: OR Current Patient Loca tion: OR Accession/Order Numb er: [id number] Exam Date: 03/01/2024 06:40 Report Date: 03/01/2024 09:55 At the request of: KATELYN KAUFMAN Procedure: NM hepatobiliary wo pharm EXAMINATION: OR hepatobiliary wo pharm HISTORY: ABDOMINAL PAIN COMPARISON: [...] Dictated By: Humble Caal M.D. Signed By: 03/01/2458 DD/ 4 TD/TT: Finishing Manager: ROMULO BEYER W or MICROSCOPIC Reviewed date:01/09/2024 01:25:50 PM Interpretation: Performing Lab: Notes/Report: [facility] , Color Urine YELLOW YELLOW Clarity Urine CLEAR CLEAR Specific [place] Urine >=1.030 1.005-1.025 pH Urine 5.5 5.0-9.0 [...] NONE SEEN #/LPF Performing Lab: see note ML - [facility] FL cineradiography Reviewed date:11/09/2023 02:09:24 PM Interpretation: Performing Lab: Notes/Report: Source Facility: [place] [address] [place] [address] Fluoroscopy Report Signed Patient: SHANIQUE CAMARGO MR#: [id number] : 1955 Acct:[id number] Age/Sex: 67 / F ADM Date: 11/09/23 Loc: OR Attending Dr: Katelyn Kaufman M.D. Ordering Physician: Katelyn Kaufman M.D. Date of Service: 11/09/23 Procedure(s): FL cineradiography Accession Number(s): [id number] cc: Katelyn Kaufman M.D. [place] [address] Patient Name: SHANIQUE CAMARGO MRN: [id number] date: 1955 Sex: F Assigned Patient Location: OR Current Patient Location: OR Accession/Order Number: [id number] Exam Date: 11/09/2023 08:03 Report Date: 11/09/2023 [...] M.D. Signed By: 11/09/23911 DD/ 8 TD/TT: Finishing Manager: [place] [address] Fluoroscopy Report Signed Patient: SUJIT CAMARGO MR#: [id number] : 1955 Acct:[id number] Age/Sex: 67 / F ADM Date: 11/09/23 Loc: OR Attending Dr: Haresh Kaufman M.D. Ordering Physician: Katelyn Kaufman M.D. Date of Service: 11/09/23 Procedure(s): FL cineradiography Accession Number(s): [id number] cc: Katelyn Kaufman M.D. [place] [address] Patient Name: SHANIQUE CAMARGO MRN: [id number] date: 1955 Sex: F Assigned Patient Location: OR Current Patient Loca tion: OR Accession/Order Numb er: [id number] Exam Date: 11/09/2023 08:03 Report Date: 11/09/2023 [...] M.D. Signed By: 11/09/23911 DD/ 8 TD/TT: Finishing Manager: PROF Pabon(COMP METB) Reviewed date:03/06/2024 01:15:20 PM Interpretation: Performing Lab: Notes/Report: [facility] , Sodium 140 136-145 mmol/L Potassium 4.2 [...] 1.1 Performing Lab: see note ML - [facility] LB Reason For Referral Reason when is patient due for a colonoscopy Diagnosis 1 Screening for colon cancer (Z12.11) Referral Organization [facility] Referring Provider First Name Stanton Referring Provider Last Name Shae Referring Provider [facility] doris Referred Provider Jovan Bolden Referred Provider Specialty General Surg zulema Referral Priority Routine Diagnosis 1 Epigastric abdominal pain (R10.13) Diagnosis 2 Diverticulosis (K57. 90) Referral Organization [facility] Referring Provider First Name Stanton Referring Provider Last Name Dannyhuyen Referring Provider [facility] doris Referred Provider Jovan Bolden Referred Provider Specialty General Surg zulema Referral Priority Routine Diagnosis 1 GERD (gastroesophage al reflux disease) (K21.9) Referral Organization [facility] Referring Provider First Name Stanton Referring Provider Last Name huyen [facility] Jovan Bolden Referred Provider Specialty General Surg zulema Referral Priority Routine Diagnosis 1 Epigastric abdominal pain (R10.13) Referral Organization [facility] Referring Provider First Name Stanton Referring Provider Last Name huyen Referring Provider [facility] Referred Provider Kamron Hayden Referred Provider Specialty Surgery Referral Priority Routine Diagnosis 1 Upper abdominal pain (R10.10) Referral Organization [facility] Referring Provider First Name Stanton Referring Provider Last Name huyen [facility]erred Provider Jovan Bolden Referred Provider Specialty General Surg zulema Referral Priority Routine Diagnosis 1 Abdominal pain (R10. 9) Diagnosis 2 GERD (gastroesophage al reflux disease) (K21.9) Diagnosis 3 Abnormal gall bladde r diagnostic imaging (R93.2) Referral Organization [facility] Referring Provider First Name Stanton Referring Provider Last Name huyen Referring Provider [facility] Referred Provider Josseline Diggs Referred Provider Specialty Gastroentero logy Referral Priority Routine Diagnosis 1 Intestinal angina (K 55.1) Referral Organization [facility] Referring Provider First Name Stanton Referring Provider Last Name Dannyhuyen Referring Provider [facility] Referred Provider Specialty Gastroentero logy Referral Priority Routine Diagnosis 1 Bile duct leak (K83. 8) Referral Organization [facility] Referring Provider First Name Stanton Referring Provider Last Name huyen Referring Provider [facility] Referred Provider Fawad Mcintosh Referred Provider Specialty Gastroentero logy Referral Priority Routine Medications Medication SIG (Take, Route, Frequency, Duration) Notes Start Date End Date Status RABEprazole Sodium 20 MG 1 tablet after a meal Orally Once a day for 30 days 04/20/2024 Active Immunizations Vaccine Route Administration Date Status Comme nts SARS-COV-2 (COVID 19 Pfizer 30mcg/0.3mL) Unknown 09/24/2020 Administered Social History Tobacco Use: Social History Observation [...] Problem Status W/U Status Risk Notes Problem 46069013 Age-related osteoporosis without current pathological fracture (M81.0) Active confirmed Problem Abdominal pain (01688320) Abdominal pain (R10.9) Active confirmed Problem Gastroesophageal reflux disease (866567915) GERD (gastroesophageal reflux disease) (K21.9) Active confirmed Problem Epigastric pain (03899173) Epigastric abdominal pain (R10.13) Active confirmed Problem Osteoarthritis of knee (019226396) Knee osteoarthritis (M17.9) Active confirmed Problem Diverticular disease of colon (189080914) Diverticulosis (K57.90) Active confirmed Problem Acute sinusitis (24711623) Acute sinusitis (J01.90) Active confirmed Problem Acute bronchitis (60590126) Acute bronchitis (J20.9) Active confirmed Problem Sciatica (11558167) Sciatic leg pain (M54.30) Active confirmed Problem Tubular adenoma (595655964) Tubular adenoma (D36.9) Active confirmed Problem Upper abdominal pain (24177235) Upper abdominal pain (R10.10) Active confirmed Problem Intestinal angina (428973121) Intestinal angina (K55.1) Active confirmed Problem Bile duct leakage (disorder) (026978586) Bile duct leak (K83.8) Active confirmed Problem Osteoarthritis of knee (606745900) Knee osteoarthritis (M17.10) Active confirmed Vital Signs Temperature 98.2 degrees Fahrenheit 06/02/2024 Blood pressure diastolic 78 mm Hg 08/23/2024 Height 61 in 08/23/2024 Blood pressure systolic 112 mm Hg 08/23/2024 Weight 156 lbs 08/23/2024 BMI 29.47 kg/m2 08/23/2024 Procedures Procedure Date Ordered Date Performed Result Body Sit e Colonoscopy 03/29/2024 Normal Encounters Encounter Location Date Provider Diagnosis [facility] [address] [place] [address] 09/09/2023 Stanton Hoy Epigastric abdominal pain R10.13 [facility] [address] [place] [address] 09/21/2023 Stanton Hoy Gastroenteritis K52. 9 and Abdominal pain R10.9 [facility] [address] [place] [address] 10/11/2023 Stanton Hoy Gastroenteritis K52. 9 [facility] [address] [place] [address] 10/29/2023 Stanton Hoy GERD (gastroesophage al reflux disease) K21.9 [facility] [address] [place] [address] 11/26/2023 Stanton Hoy Abdominal pain R10.9 [facility] [address] [place] [address] 01/10/2024 Stanton Hoy Upper abdominal pain R10.10 [facility] [address] [place] [address] 01/19/2024 Stanton Hoy Knee osteoarthritis M17.10 and Knee pain, left M25.562 [facility] [address] [place] [address] 02/07/2024 Stanton Hoy Gastroenteritis K52. 9 [facility] [address] [place] [address] 02/28/2024 Stanton Hoy Abdominal pain R10.9 [facility] [address] [place] [address] 03/06/2024 Stanton Hoy Epigastric abdominal pain R10.13 [facility] [address] [place] [address] 04/05/2024 Stanton Hoy Acute non-recurrent sinusitis, unspecified location J01.90 and Nasal congestion R09.81 [facility] [address] [place] [address] 04/20/2024 Stanton Hoy GERD (gastroesophage al reflux disease) K21.9 and Intestinal angina K55.1 [facility] [address] [place] [address] 06/02/2024 Stanton Hoy Burning with urinati on R30.0 ; UTI (urinary tract infection), uncomplicated N39.0 and Dysuria R30.0 [facility] [address] [place] [address] 06/14/2024 Stanton Hoy UTI (urinary tract infection) N39.0 [facility] [address] [place] [address] 07/24/2024 Stanton Hoy Shoulder impingement M25.819 and Impingement of right shoulder M25.811 [facility] [address] [place] [address] 08/23/2024 Stanton Hoy Encounter for Medica re annual wellness exam Z00.00 [facility] [address] [place] [address] 08/18/2024 Stanton Hoy Knee osteoarthritis M17.9 [facility] [address] [place] [address] 09/10/2023 Stanton Hoy Unspecified abdomina l pain R10.9 [facility] [address] [place] [address] 09/17/2023 Stanton Hoy Epigastric abdominal pain R10.13 and Unspecified abdominal pain R10.9 [facility] [address] [place] [address] 09/19/2023 Stanton Hoy [facility] [address] [place] [address] 09/21/2023 Stanton Hoy Screening for colon cancer Z12.11 [facility] [address] [place] [address] 09/21/2023 Stanton Hoy [facility] [address] [place] [address] 09/21/2023 Stanton Hoy Encounter for diagno stic endoscopy Z01.818 [facility] [address] [place] [address] 09/24/2023 Stanton Hoy [facility] [address] [place] [address] 09/28/2023 Stanton Hoy Epigastric abdominal pain R10.13 [facility] [address] [place] [address] 10/12/2023 Stanton Hoy [facility] [address] [place] [address] 10/14/2023 Stanton Hoy [facility] [address] [place] [address] 10/17/2023 Stanton Hoy [facility] [address] [place] [address] 10/31/2023 Stanton Hoy [facility] [address] [facility] [place] [address] 11/01/2023 Stanton Hoy GERD (gastroesophage al reflux disease) K21.9 [facility] [address] [place] [address] 11/09/2023 Stanton Hoy [facility] [address] [place] [address] 12/02/2023 Stanton Hoy Epigastric abdominal pain R10.13 and Abnormal gall bladder diagnostic imaging R93.2 [facility] [address] [place] [address] 12/15/2023 Stanton Hoy [facility] [address] [place] [address] 02/02/2024 Stanton Hoy Upper abdominal pain R10.10 [facility] [address] [place] [address] 02/10/2024 Stanton Hoy [facility] [address] [place] [address] 02/11/2024 Stanton Hoy Upper abdominal pain R10.10 [facility] [address] [place] [address] 02/14/2024 Stanton Hoy Abdominal pain R10.9 and GERD (gastroesophageal reflux disease) K21.9 [facility] [address] [place] [address] 02/28/2024 Stanton huyen [facility] [address] [place] [address] 03/01/2024 Stanton Kaufman [facility] [address] [place] [address] 03/01/2024 Stanton Kaufman [facility] [address] [place] [address] 03/03/2024 Stanton [facility] [address] [place] [address] 03/06/2024 Stanton Kaufman [facility] [address] [place] [address] 03/10/2024 Stanton Kaufman [facility] [address] [place] [address] 04/16/2024 Stanton Kaufman [facility] [address] [place] [address] 04/20/2024 Stanton Kaufman Intestinal angina K5 5.1 ; Upper abdominal pain R10.10 and Bile duct leak K83.8 [facility] [address] [place] [address] 04/26/2024 Stanton Kaufman [facility] [address] [place] [address] 06/14/2024 Stanton Kaufman [facility] [address] [place] [address] 07/26/2024 Stanton Kaufman Assessments Encounter Date Diagnosis (ICD Code) Assessment Notes Treatment Notes Treatment Clinical Notes Section Notes 06/02/2024 Burning with urination (ICD-10 - R30.0) 04/05/2024 Acute non-recurrent sinusitis, unspecified location (ICD-10 - J01.90) Rest and drink more liquids, especially water. You may use a humidifier or vaporizer to help keep the drainage moist. Adny-wac-nvrzhhp Nasal Saline may help the stuffy and runny nose. Use Ibuprofen and or Tylenol as needed for fever, chills, body aches or pain. Children 5 years old should not be given htpz-qhs-irzscng cough and cold medications such as guaifenesin and dextromethorphan. If you're over age 5, you may try xsly-ecn-wgsnazd cold medications such as guaifenesin and dextromethorphan, [...] K21.9) 04/20/2024 Intestinal angina (ICD-10 - K55.1) 09/09/2023 Epigastric abdominal pain (ICD-10 - R10.13) [...] East back into eating by eating bland, vmrd-st-vlrdsh foods like crackers, toast, gelatin, bananas, rice and chicken. Try to avoid foods/substances including dairy products, caffeine, alcohol, nicotine and fatty or highly seasoned foods. Medications such as ibuprofen or tylenol can make your stomach more upset, so use sparingly if at all. Also avoid ypmd-nqb-zbiuzac anti-diarrheal medications because it can make it [...] East back into eating by eating bland, uhzv-sv-ntuwkx foods like crackers, toast, gelatin, bananas, rice and chicken. Try to avoid foods/substances including dairy products, caffeine, alcohol, nicotine and fatty or highly seasoned foods. Medications such as ibuprofen or tylenol can make your stomach more upset, so use sparingly if at all. Also avoid vdzg-kxk-oimyeds anti-diarrheal medications because it can make it [...] East back into eating by eating bland, ejwf-ei-kcwadj foods like crackers, toast, gelatin, bananas, rice and chicken. Try to avoid foods/substances including dairy products, caffeine, alcohol, nicotine and fatty or highly seasoned foods. Medications such as ibuprofen or tylenol can make your stomach more upset, so use sparingly if at all. Also avoid ikag-mnn-cmyqvkt anti-diarrheal medications because it can make it harder for your body to eliminate the virus. 02/28/2024 Abdominal pain (ICD-10 - R10.9) 03/06/2024 Epigastric abdominal pain (ICD-10 - R10.13) 06/14/2024 UTI (urinary tract infection) (ICD-10 - N39.0) 07/24/2024 Impingement of right shoulder (ICD-10 - M25.811) 07/24/2024 Shoulder impingement (ICD-10 - M25.819) 08/23/2024 Encounter for Medicare annual wellness exam (ICD-10 - Z00.00) patient presents to the office for a subsequent medicare wellness appointment. a depression screening/an xiety screening/ safety screening was completed without concerns, SLUMS memory test was completed and the patient scored a 30/30, vision test was completed and the patient scored 20/20, patient was happy a pleasant, vaccines were up to date and the patient was due for yearly labs which were ordered 08/18/2024 Knee osteoarthritis (ICD-10 - M17.9) 09/10/2023 Unspecified [...] until they are finished. You can use [id number] acetaminophen or ibuprofen if needed for pain. [...] NUC MED Hida with Ejection Fraction * COMPREHENSIVE METABOLIC PROFILE WITH GFR 08/23/2024 OCCULT BLOOD, FECAL, IMMUNOASSAY 025 C DIFF TOX PCR STOOL 10/11/2023 CBC W/AUTO DIFF 08/23/2024 GLYCOHEMOGLOBIN A1C 08/23/2024 VIT B12 AND FOLATE 06/23/2023 CT ABD and PELV W CON 09/21/2023 US ABD 11/26/2023 US ABD 02/02/2024 XR DEXA BONE DENSITY 06/02/2023 XR SHOULDER RT 2V or > 07/24/2024 THYROID PANEL (T4/TSH/FREE T3) 3 THYROID PANEL (T4/TSH/FREE T3) 5 Lipid Panel 08/23/2024 Vitamin D, 25-Hydroxy 06/23/2023 NUC MED Hida with Ejection Fraction * CMP (COMP MET MARTINEZ) w/eGFR CKD-EPI 2024 Insurance Providers Payer Name Payer Address Payer Phone Subscriber Number Group Number Insured Name Patient Relationship to Insured Coverage Start Date Coverage End Date [facility] [employer] [address] [address] [place] [phone] [id number] Shanique Camargo Self - patient is the insured 4 Medical (General) History Medical History History ICD Code Arthritis M19.90 Inguinal hernia K40.90 Diverticular disease K57.90 Surgical History Surgery Date(Month/Year) Hysterectomy 1988 Tonsillectomy 1964 Carpal Tunnel 2001 Right Knee Surgery 11/12/15 Left Knee Surgery 01/12/16 Hernia Repair EGD 11/24/2023 gallbladder removed 12/13/23 Colonoscopy, polyp x3- Dr Diggs 5 EGD 05/10/24
--- OUTSIDE RECORDS SUMMARY | 2024-08-29 07:45 | XMS_ITS | Patient Health Record ---
Author Organization [facility] Address [address] [place] [address] Care Team Providers Care Digester Name Role Phone Merrill Kaufman Primary Care Provider Jas Correa Unavailable [phone] Reason For Referral No Information Problems Problem Type SNOMED Code ICD Code Onset Dates Problem Status W/U Status Risk Notes Problem Sciatica (71207358) Sciatica (M54.30) Active confirmed Problem History of left knee replacement (985516939075889 4) History of left knee replacement (Z96.652) Active confirmed Plan Of Treatment Pending Test Test Name Order Date PT/OT - Eval and Treat 08/16/2023 Insurance Providers Payer Name Payer Address Payer Phone Subscriber Number Group Number Insured Name Patient Relationship to Insured Coverage Start Date Coverage End Date [facility] [address] [address] [place] [address] [id number] MARY JO ROBLES Self - patient is the insured
[2024-08-29 08:30] LABS: Hematocrit 45.0 % (36.0-48.0); Hemoglobin 14.5 g/dL (12.0-16.0); Immature Granulocytes Abs Auto 0.01 10^3/uL (0.00-0.03); Immature Granulocytes Pct Auto 0.2 % (0.0-0.5); Lymphocytes Absolute Auto 2.2 10^3/uL (1.2-3.8); Mean Corpuscular HGB Conc 32.2 g/dL (29.9-35.2); Mean Corpuscular Hemoglobin 29.8 pg (26.7-34.0); Mean Corpuscular Volume 92.4 fL (81.0-99.0); Platelet Count 287 10^3/uL (150-450); Red Blood Count 4.87 10^6/uL (4.20-5.40); White Blood Count 5.8 10^3/uL (4.0-11.0)
[2024-08-29 10:40] LABS: Alanine Aminotransferase 27 U/L (14-59); Albumin Globulin Ratio 1.0; Albumin Level 3.7 g/dL (3.4-5.0); Alkaline Phosphatase 76 U/L (46-116); Anion Gap 11.0; Aspartate Amino Transferase 20 U/L (15-37); Blood Urea Nitrogen 20.0 mg/dL (7.0-18.0); Calcium 8.8 mg/dL (8.5-10.1); Carbon Dioxide 30.6 mmol/L (21.0-32.0); Chloride 105 mmol/L (98-107); Cholesterol 194 mg/dL (<=200); Estimated GFR (African America >60 (>=60 mL/min/1.73m^2); Estimated GFR (Non-African Ame >60 (>=60 mL/min/1.73m^2); Free T3 2.85 pg/mL (2.18-3.98); Globulin 3.6 g/dL; Glucose 94 mg/dL (74-106); HDL Cholesterol 85 mg/dL (40-60); Potassium 4.6 mmol/L (3.5-5.1); Sodium 142 mmol/L (136-145); Thyroid Stimulating Hormone 1.117 uIU/mL (0.358-3.740); Total Protein 7.3 g/dL (6.4-8.2); Triglycerides 42 mg/dL (<=150); VLDL CHOLESTEROL 8.4 mg/dL
== END 2024-08-29 07:32 | disposition home or self-care (01) ==
LOC: LAB 07:43
PROVIDERS: PCP Family Medicine; Visit Provider Family Medicine
DX: Z00.00 Encounter for general adult medical examination without abnormal findings (principal); K52.9 Noninfective gastroenteritis and colitis, unspecified; R10.9 Unspecified abdominal pain; R53.83 Other fatigue; E78.5 Hyperlipidemia, unspecified; R73.09 Other abnormal glucose
CPT/HCPCS: 36415; 80053; 80061; 83036; 84436; 84443; 84481; 85025

== ENCOUNTER 2024-08-30 08:04 | Outpatient (REF) | payer MEDICARE, SELFPAY ==
--- OUTSIDE RECORDS SUMMARY | 2023-10-18 09:40 | XMS_ITS ---
Author Organization [facility] Address [address] [place] [address] Care Team Providers Care Relief Docking Master Name Role Phone Merrill Kaufman Primary Care Provider Jas Correa Unavailable [phone] REASON FOR VISIT left knee pain recheck Encounters Encounter Location Date Provider Diagnosis [facility] [address] [facility] [place] [address] 10/18/2023 Jas Kelly Plan Of Treatment No Information Progress Notes * CYRILRUPERT MARY JO LDOB:[birth year] (68 yo F)Acc No.[id number]:10/18/2023 Patient: MARY JO DOLAN Provider: Jacey Kelly DO :1955 A ge:67 Y S ex:Female Date:10/18/2023 [facility] Pcp:Merrill Kaufman Subjective: * Chief Complaints: * 1 . Left knee pain recheck. * Medical History: Objective: * Vitals: Assessment: Plan: * Treatment: Forms: * Images: * Electronic signature of Cheryl Kelly DO on 08/30/2024 at 08:05 AM EDT Sign off status: Pending * Provider: Jacey Kelly DO Date: 10/18/2023 Generated for Jason lehman/Brittany/eTransmitting on: 08/30/2024 08:05 AM EDT
--- OUTSIDE RECORDS SUMMARY | 2024-08-18 10:30 | XMS_ITS ---
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 Name Role Phone Shae Stanton Primary Care Provider Allergies Allergen (clinical drug ingredient) Drug/Non Drug Allergy documented on EMR Reaction Allergy Type Onset Date Status Levaquin severe muscle aches Drug Allergy Active Non-steroidal anti-inflammatory agent (FN) NSAIDs GI INTOLERANCE Drug Allergy Active sucralfate Sucralfate GI intolerance Drug Allergy Active REASON FOR VISIT Right Knee Pain Medications Medication SIG (Take, Route, Frequency, Duration) Notes Start Date End Date Status RABEprazole Sodium 20 MG 1 tablet after a meal Orally Once a day for 30 days 04/20/2024 Active predniSONE 5 MG 1 tablet with food o r milk Orally Once a day for 30 days 08/18/2024 Active Social History Tobacco Use: Social History Observation Description Date Details (start date - stop date) Never Smoker NA - NA Tobacco Use/Smoking Question Answer Notes Patient is a nonsmoker AUDIT-C (Standard) Question Answer Notes Did you have a drink containing alcohol in the p ast year? No Points 0 Interpretation Negative Vital Signs Weight 156.8 lbs 08/18/2024 Height 61 in 08/18/2024 Blood pressure systolic 120 mm Hg 08/19/19 25 Blood pressure diastolic 80 mm Hg 025 BMI 29.62 kg/m2 08/18/2024 Encounters Encounter Location Date Provider Diagnosis [facility] [address] [place] [address] 08/18/2024 Stanton Kaufman Knee osteoarthritis M17.9 Assessments Encounter Date Diagnosis (ICD Code) Assessment Notes Treatment Notes Treatment Clinical Notes Section Notes 08/18/2024 Knee osteoarthritis (ICD-10 - M17.9) Plan Of Treatment Medication Medication Name Sig Start Date Stop Date Notes predniSONE 5 MG 1 tablet with food o r milk Orally Once a day for 30 days 08/18/2024 Progress Notes * Shanique CAMARGO LDOB:[birth year] (68 yo F)Acc No.[id number]:08/18/2024 Progress Note Patient: Shanique DOLAN Provider: Jacey Kaufman ([facility])MD :1955 A ge:68 Y S ex:Female Date:08/18/2024 Address:[address] [place] [address] [place] , [phone] Check In:02:23 PM ESTCheck O ut:03:25 PM EST Subjective: * Chief Complaints: * R ight Knee Pain * HPI: G eneral: kne pain - worse wtih higher humidity and actoiviey cant takie nsaids. * Active Problem List J20.9 Acute bronchitis Modified On:01/28/2023U Status:confirmed J01.90 Acute sinusitis Modified On:01/06/2023U Status:confirmed M81.0 Age-related osteopor osis without current pathological fracture Modified On:06/02/2023U Status:confirmed M54.30 Sciatic leg pain Modified On:07/08/2023U Status:confirmed M17.9 Knee osteoarthritis Modified On:08/02/2023U Status:confirmed R10.13 Epigastric abdominal pain Modified On:09/09/2023U Status:confirmed K57.90 Diverticulosis Modified On:09/28/2023U Status:confirmed K21.9 GERD (gastroesophage al reflux disease) Modified On:10/29/2023U Status:confirmed R10.9 Abdominal pain Modified On:11/26/2023U Status:confirmed R10.10 Upper abdominal pain Modified On:01/10/2024/U Status:confirmed M17.10 Knee osteoarthritis Modified On:11/27/2024W/U Status:confirmed D36.9 Tubular adenoma Modified On:04/04/2024W/U Status:confirmed K55.1 Intestinal angina Modified On:04/20/2024W/U Status:confirmed K83.8 Bile duct leak Modified On:04/21/2024W/U Status:confirmed * Medical History: * Surgical History: H ysterectomy 1989Tonsillectomy 1964Carpal Tunnel 2002Right Knee Surgery 11/12/15Left Knee Surgery 01/12/16Hernia Repair EGD 11/24/2023gallbladder removed 12/13/23Colonoscopy, polyp x3- Dr Diggs 03/2024EGD 05/10/24 * Hospitalization/Major Diagno stic Procedure: D enies Past Hospitalization * Family History: F ather: , COPD. [...] Use/Smoking P atient is a n onsmoker D rug/Alcohol: A MARLINE-C (Standard) D id you have a drink containing alcohol in the past year? N o P oints 0 I nterpretation N egative * Medications: T akingRABEprazole Sodium 20 MG Tablet Delayed Release 1 tablet after a meal Orally Once a day Taking RABEprazole Sodium 20 MG Tablet Delayed Release 1 tablet after a meal Orally Once a day DiscontinuedOndansetron 4 MG Tablet Disintegrating 1 tablet on the tongue and allow to dissolve Orally Once a day , Notes to Pharmacist: PRNpredniSONE 20 MG Tablet 3 tablets Orally Once a day Pyridium(Phenazopyridine HCl) 200 MG Tablet 1 tablet after meals Orally Three times a day Medication List reviewed and reconciled with the patientDiscontinued Ondansetron 4 MG Tablet Disintegrating 1 tablet on the tongue and allow to dissolve Orally Once a day , Notes to Pharmacist: PRNDiscontinued predniSONE 20 MG Tablet 3 tablets Orally Once a day Discontinued Pyridium(Phenazopyridine HCl) 200 MG Tablet 1 tablet after meals Orally Three times a day Medication List reviewed and reconciled with the patient * Allergies: L evaquin: severe muscle aches - Side Effects - Criticality HighNSAIDs: GI INTOLERANCE - Allergy - Criticality HighSucralfate: GI intolerance - Allergy - Criticality Highno[Allergies Verified] Objective: * Vitals: W t:156.8lbs, Ht: 61 in, BP:120/80mm Hg, BMI:29.62Index, Ht-cm: 154.94 cm, Wt-k.12 kg. * Physical Examination: Ramos montgomery small effusions. Assessment: * Assessment: 1. K nee osteoarthritis - M17.9 (Primary) Plan: * Treatment: * Procedure Codes: * Preventive Medicine: Screenings/Counseling: B NM ACTION PLAN Above Normal BMI Follow-up D ietary management education, guidance, and counseling * * Sign off status: Completed Visit Status: C HK (Check Out) true * Provider: Jacey Kaufman ([facility])MD Date: 0 08/18/2024 Generated for Jason lehman/Brittany/eTshanicesmitting on: 0 08/30/2024 08:06 AM EDT History and Physical Notes * HPI (History of Present Illness) Category Sub-Category Detail Notes Category Not es General kne pain - worse wtih higher humidity and actoiviey cant takie nsaids Physical Examination Category Sub-Category Detail Notes Section Note s R knne wotih sm all effusions
--- OUTSIDE RECORDS SUMMARY | 2024-08-23 09:30 | XMS_ITS ---
Author Organization The [facility] in [place] Address [address] [place] [address] Care Team Providers Care Hotel Associate Name Role Phone Stanton Kaufman Primary Care Provider [phone] Allergies Allergen (clinical drug ingredient) Drug/Non Drug Allergy documented on EMR Reaction Allergy Type Onset Date Status Levaquin severe muscle aches Drug Allergy Active Non-steroidal anti-inflammatory agent (FN) NSAIDs GI INTOLERANCE Drug Allergy Active sucralfate Sucralfate GI intolerance Drug Allergy Active Results Component Value Reference Range Notes GLYCOHEMOGLOBIN A1C Reviewed date:08/29/2024 06:58:57 PM Interpretation: Performing Lab: Notes/Report: [facility] , Glycohemoglobin A1C 5.5 4.5-6.2 % ADA RECOMMENDED LIMIT 4.0 - 6.0 ADA THERAPEUTIC TARGET < 7.0 ACTION SUGGESTED > 7.0 Estimated Average Glucose 111 Performing Lab: see note ML - [facility] LB REASON FOR VISIT subsequent Medicare Wellness appointment [...] 08/23/2024 Encounters Encounter Location Date Provider Diagnosis [facility] [address] [place] [address] 08/23/2024 Stanton Kaufman Encounter for Medica annual wellness exam Z00.00 Assessments Encounter Date [...] FECAL, IMMUNOASSAY 025 CBC W/AUTO DIFF 08/23/2024 THYROID PANEL (T4/TSH/FREE T3) Lipid Panel 08/23/2024 Progress Notes * Shanique CAMARGO LDOB:[birth year] (68 yo F)Acc No.[id number]:08/23/2024 UNLOCKED PROGRESS NOTE Progress Note Patient: Shanique DOLAN Provider: Jacey Kaufman ([facility])MD :1955 A ge:68 Y S ex:Female Date:08/23/2024 Address:[address] [place] , [id number] Check In:01:20 PM ESTCheck O ut:01:56 PM EST Subjective: * Chief Complaints: * 1 . subsequent Medicare Wellness appointment. * HPI: Henok mancini Annual Wellness Visit: [facility]? Visual Acuity: N /A. Other Providers of Care: C are Team reviewed with patient: Y es, and updates made in [facility] Care Physical Activity: D o you [...] o you have a Durable Power of Hand Method Lasting Machine Operator? Y es W ould you like to [...] in a a tent, in an overnight snf, or temporarily in someone else's home??No A [...] Right Knee Surgery 11/12/15, Left Knee Surgery 11/20/16, Hernia Repair , EGD 11/24/2023, gallbladder removed [...] Wt-k.76 kg. Assessment: * Assessment: 1. E [place]ia for Medicare annual wellness exam - Z00.00 patient presents to the [facility] for a subsequent medicare wellness appointment. a [...] L AB: OCCULT BLOOD, FECAL, IMMUNOASSAY * Labs: * L ab: GLYCOHEMOGLOBIN A1C (Collection Date & Time - 08/29/2024 07:54 AM) * Procedure Codes: G 0439 ANNUAL WELLNESS, SUBSEQ * Preventive Medicine: Screenings/Counseling: B DC ACTION PLAN Above Normal BMI Follow-up D ietary management education, guidance, and counseling F ALL RISK SCREENING Fall Risk Assessment: N o falls in the past year Are you afraid of falling? N o * * Electronic signature of Stanton Kaufman MD, [id number] on 08/30/2024 at 08:06 AM EDT Sign off status: Pending Visit Status: Rose BENDER (Check Out) * Provider: Jacey Kaufman ([facility])MD Date: 08/23/2024 Generated for Darryli ng/Brittany/eTransmitting on: 08/30/2024 08:06 AM EDT History and Physical [...] dentures?: Excellent Medication List Follow-Up: During the four weeks, how much bodily pain do [...] Do you have a Durable Power of Hand Method Lasting Machine Operator? : Yes Would you like to discuss this topic tod ay?: Yes Other Providers of Care: Care Team carol nieves with patient:: Yes, and updates made in [facility] Care SDHI Agree to complete So [facility] Determinants of Health questionnaire: Yes Within the [...] in a a tent, in an overnight snf, or temporarily in someone else's home?: No [...]
--- OUTSIDE RECORDS SUMMARY | 2024-08-29 14:57 | XMS_ITS ---
Author Organization [facility] in [place] Address [address] [place] [address] Care Team Providers Care Triple Valve Tester Name Role Phone Stanton Kaufman Primary Care Provider Encounters Encounter Location Date Provider Diagnosis [facility] [address] [place] [address] 08/29/2024 Stanton Kaufman Plan Of Treatment No Information Progress Notes * Shanique CAMARGO LDOB:[birth year] (68 yo F)Acc No.[id number]:08/29/2024 UNLOCKED PROGRESS NOTE Patient: Shanique DOLAN :1955 A ge:68 Y S ex:Female Address:[address] [place], [address] * * Date:
--- OUTSIDE RECORDS SUMMARY | 2024-08-30 08:06 | XMS_ITS | Patient Health Record ---
Author Organization [facility] Address [address] [place] [address] Care Team Providers Care Bag Mender Name Role Phone Merrill Kaufman Primary Care Provider Jas Correa Unavailable [phone] Reason For Referral No Information Problems Problem Type SNOMED Code ICD Code Onset Dates Problem Status W/U Status Risk Notes Problem Sciatica (99527422) Sciatica (M54.30) Active confirmed Problem History of left knee replacement (906332861930187 4) History of left knee replacement (Z96.652) Active confirmed Plan Of Treatment Pending Test Test Name Order Date PT/OT - Eval and Treat 08/16/2023 Insurance Providers Payer Name Payer Address Payer Phone Subscriber Number Group Number Insured Name Patient Relationship to Insured Coverage Start Date Coverage End Date [facility] ARE MEDICARE [address] [address] [place] [address] [id number] MARY JO ROBLES Self - patient is the insured
--- OUTSIDE RECORDS SUMMARY | 2024-08-30 08:07 | XMS_ITS | Patient Health Record ---
Author Organization [facility] in [place] Address [address] [place] [address] Care Team Providers Care Sieve Grader Tender Name Role Phone Stanton Kaufman Primary Care [...] date:08/29/2024 06:58:57 PM Interpretation: Performing Lab: Notes/Report: [facility] , Glycohemoglobin A1C 5.5 4.5-6.2 % ADA RECOMMENDED LIMIT 4.0 - 6.0 ADA THERAPEUTIC TARGET < 7.0 ACTION SUGGESTED > 7.0 Estimated Average Glucose 111 Performing Lab: see note ML - [facility] LB AMYLASE Reviewed date:10/12/2023 02:30:58 PM Interpretation: Performing Lab: Notes/Report: [facility] , Amylase 42 25-115 U/L Performing Lab: see note ML - The [facility] LB CBC AUTO DIFF Reviewed date:10/12/2023 02:30:58 PM Interpretation: Performing Lab: Notes/Report: [facility] , White Blood Count 6.4 4.0-11.0 [...] Performing Lab: see note ML - The [facility] LB LIPASE Reviewed date:10/12/2023 02:30:58 PM Interpretation: Performing Lab: Notes/Report: [facility] , Lipase 38.0 16.0-77.0 U/L Performing Lab: see note ML - [facility] LB PROF 14(COMP METB) Reviewed date:10/12/2023 02:30:58 PM Interpretation: Performing Lab: Notes/Report: [facility] , Sodium 140 136-145 mmol/L Potassium [...] note ML - The [facility] [place] upper GI w air Reviewed date:11/09/2023 02:09:24 PM Interpretation: Performing Lab: Notes/Report: Source Facility: [place] [address] Fluoroscopy Report Signed Patient: SHANIQUE CAMARGO MR#: [id number] : 1955 Acct:[id number] Age/Sex: 67 / F ADM Date: 11/09/23 Loc: [place] Attending Dr: Katelyn Kaufman M.D. Ordering Physician: Katelyn Kaufman M.D. Date of Service: 11/09/23 Procedure(s): [place] upper GI w air Accession Number(s): [id number] cc: Katelyn Kaufman M.D. [place] [address] Patient Name: SHANIQUE CAMARGO MRN: [id number] date: 1955 Sex: F Assigned Patient Location: [place] Current Patient Location: [place] Accession/Order Number: [id number] Exam Date: 11/09/2023 08:03 Report Date: 11/09/2023 09:09 At the request of: KATELYN KAUFMAN Procedure: [place] upper GI w air PROCEDURE: [place] upper GI w air, [place] cineradiography COMPARISON: None. FLUORO DOSE: 1 minute [...] M.D. Signed By: 11/09/23911 DD/ 8 TD/TT: Hydraulic And Plumbing Installer: [place] [address] Fluoroscopy Report Signed Patient: SUJIT CAMARGO MR#: [id number] : 1955 Acct:[id number] Age/Sex: 67 / F ADM Date: 11/09/23 Loc: [place] Attending Dr: Haresh Kaufman M.D. Ordering Physician: Katelyn Kaufman M.D. Date of Service: 11/09/23 Procedure(s): [place] up er GI w air Accession Number(s): [id number] cc: Katelyn Kaufman M.D. [place] [address] Patient Name: SHANIQUE CAMARGO MRN: [id number]:[id number] date: 1955 Sex: F Assigned Patient Location: [place] Current Patient Loca tion: [place] Accession/Order Numb er: [id number] Exam Date: 11/09/2023 08:03 Report Date: 11/09/2023 [...] M.D. Signed By: 11/09/23911 DD/ 8 TD/TT: Hydraulic And Plumbing Installer: US abdomen complete Reviewed date:12/02/2023 09:52:22 AM Interpretation: Performing Lab: Notes/Report: Source Facility: [place] [address] Ultrasound Report Signed Patient: SHANIQUE CAMARGO MR#: [id number] : 1955 Acct:[id number] Age/Sex: 67 / F ADM Date: 12/02/23 Loc: US Attending Dr: Katelyn Kaufman M.D. Ordering Physician: Katelyn Kaufman M.D. Date of Service: 12/02/23 Procedure(s): US abdomen complete Accession Number(s): [id number] cc: Katelyn Kaufman M.D. [place] [address] Patient Name: SHANIQUE CAMARGO MRN: [id number]:[id number] date: 1955 Sex: F Assigned Patient Location: Current Patient Location: [place] Accession/Order Number: [id number] Exam Date: 12/02/2023 07:46 Report Date: 12/02/2023 [...] M.D. Signed By: 12/02/23901 DD/ 8 TD/TT: Hydraulic And Plumbing Installer: [place] [address] Ultrasound Report Signed Patient: SUJIT CAMARGO MR#: [id number] : 1955 Acct:[id number] Age/Sex: 67 / F ADM Date: 12/02/23 Loc: US Attending Dr: Haresh Kaufman M.D. Ordering Physician: Katelyn Kaufman M.D. Date of Service: 12/02/23 Procedure(s): US abd omen complete Accession Number(s): [id number] cc: Katelyn Kaufman M.D. [address] [address] Patient Name: SHANIQUE CAMARGO MRN: [id number]:[id number] date: 1955 Sex: F Assigned Patient Location: US Current Patient Loca tion: US Accession/Order Numb er: [id number] Exam Date: 07:46 Report Date: 12/02/2023 08:59 [...] M.D. Signed By: 12/02/23901 DD/ 8 TD/TT: Hydraulic And Plumbing Installer: CT abdomen pelvis w con Reviewed date:09/26/2023 03:58:23 PM Interpretation: Performing Lab: Notes/Report: Source Facility: [place] [address] CT Scan Report Signed Patient: SHANIQUE CAMARGO MR#: [id number] : 1955 Acct:[id number] Age/Sex: 67 / F ADM Date: 09/23/23 Loc: LAB Attending Dr: Katelyn Kaufman M.D. Ordering Physician: Katelyn Kaufman M.D. Date of Service: 09/23/23 Procedure(s): CT abdomen pelvis w con Accession Number(s): [id number] cc: Katelyn Kaufman M.D. [place] [address] Patient Name: SHANIQUE CAMARGO MRN: [facility]:[id number] date: 1955 Sex: F Assigned Patient Location: LAB Current Patient Location: Accession/Order Number: [id number] Exam Date: 09/23/2023 13:15 Report Date: 09/24/2023 [...] M.D. Signed By: 09/24/23517 DD/ 4 TD/TT: Hydraulic And Plumbing Installer: [place] [address] CT Scan Report Signed Patient: SUJIT CAMARGO MR#: [id number] : 1955 Acct:[id number] Age/Sex: 67 / F ADM Date: 09/23/23 Loc: LAB Attending Dr: Haresh Kaufman M.D. Ordering Physician: Katelyn Kaufman M.D. Date of Service: 09/23/23 Procedure(s): CT abd omen pelvis w con Accession Number(s): [id number] cc: Katelyn Kaufman M.D. [place] [id number] Patient Name: SHANIQUE CAMARGO MRN: [id number]:[id number] date: 1955 Sex: F Assigned Patient Location: LAB Current Patient Location: Accession/Order Danya er: [id number] Exam Date: 09/23/2023 13:15 Report Date: 09/24/2023 [...] M.D. Signed By: 09/24/23517 DD/ 4 TD/TT: Hydraulic And Plumbing Installer: XR KNEE RT 3V Reviewed date:08/10/2024 06:48:32 PM Interpretation: Performing Lab: Notes/Report: Source Facility: [place] [address] XRay Report Signed Patient: SHANIQUE CAMARGO MR#: [id number] : 1955 Acct:[id number] Age/Sex: 68 / F ADM Date: 08/10/24 Loc: ER Attending Dr: Ordering Physician: Nikki Paulino Date of Service: 08/10/24 Procedure(s): XR knee RT 3V Accession Number(s): [id number] cc: Katelyn Kaufman M.D.; Nikki Paulino [place] [address] Patient Name: SHANIQUE CAMARGO MRN: [id number]:[id number] date: 1955 Sex: F Assigned Patient Location: ER Current Patient Location: ER Accession/Order Number: [id number] Exam Date: 08/10/2024 08:06 Report Date: 08/10/2024 [...] Mckoy M.D. 08/10/2024 8:08 AM Dictation Location: [place] [address] Electronically authenticated by: [id number] Y Date: 08/10/2024 08:08 Dictated By: Xiomara Mckoy M.D. Signed By: 08/10/24810 DD/ 7 TD/TT: Hydraulic And Plumbing Installer: [place] [id number] XRay Report Signed Patient: SUJIT CAMARGO MR#: [id number] : 1955 Acct:[id number] Age/Sex: 68 / F ADM Date: 08/10/24 Loc: ER Attending Dr: Ordering Physician: Nikki Paulino Date of Service: 08/10/24 Procedure(s): XR kne e RT 3V Accession Number(s): [id number] cc: Katelyn Kaufman M.D. ; Nikki Paulino [place] [address] Patient Name: SHANIQUE CAMARGO MRN: [id number] date: 1955 Sex: F Assigned Patient Location: ER Current Patient Loca tion: ER Accession/Order Numb er: [id number] Exam Date: 08/10/2024 08:06 Report Date: 08/10/2024 [...] Mckoy M.D. 08/10/2024 8:08 AM Dictation Location: [place] [address] Electronically authenticated by: [id number] Y Date: 08/10/2024 08:08 Dictated By: Xiomara Mckoy M.D. Signed By: 08/10/24810 DD/ 7 TD/TT: Hydraulic And Plumbing Installer: LEXY T3 Reviewed date:08/29/2024 06:58:57 PM Interpretation: Performing Lab: Notes/Report: [facility] , Free T3 2.85 2.18-3.98 pg/mL Performing Lab: see note ML - The [facility] LB LIPID PROFILE Reviewed date:08/29/2024 06:58:57 PM Interpretation: Performing Lab: Notes/Report: [facility] , Triglycerides 42 <=150 mg/dL Cholesterol 194 <=200 mg/dL HDL Cholesterol 85 40-60 mg/dL > or =60 mg/dl - LOW CARDIOVASCULAR RISK <40 mg/dl - HIGH CARDIOVASCULAR RISK LDL Cholesterol Calculated 101.0 <100 mg/dl OPTIMAL 100-129 mg/dl NEAR OR ABOVE OPTIMAL 130-159 mg/dl BORDERLINE HIGH 160-189 mg/dl HIGH >190 mg/dl VERY HIGH VLDL CHOLESTEROL 8.4 Chol HDL Ratio 2.3 3.3 - 4.4 LOW RISK 4.4 - 7.1 AVERAGE RISK 7.1 - 11.0 MODERATE RISK >11.0 HIGH RISK Performing Lab: see note ML - [facility] LB PROF 14(COMP METB) Reviewed date:08/29/2024 06:58:57 PM Interpretation: Performing Lab: Notes/Report: [facility] , Sodium 142 136-145 mmol/L Potassium 4.6 3.5-5.1 mmol/L Chloride 105 98-107 mmol/L Carbon Dioxide 30.6 21.0-32.0 mmol/L Anion Gap 11.0 Glucose 94 74-106 mg/dL Blood Urea Nitrogen 20.0 7.0-18.0 mg/dL Creatinine 0.62 0.55-1.02 mg/dL Estimated GFR ( Shireen >60 >=60 mL/min/1.73m 2 Estimated GFR (Non- Isela >60 >=60 mL/min/1.73m 2 BUN Creatinine Ratio 32.3 Calcium 8.8 8.5-10.1 mg/dL Bilirubin Total 0.3 0.2-1.0 mg/dL Aspartate Amino Transferase 20 15-37 U/L Alanine Aminotransferase 27 14-59 U/L Alkaline Phosphatase 76 46-116 U/L Total Protein 7.3 6.4-8.2 g/dL Albumin Level 3.7 3.4-5.0 g/dL Globulin 3.6 Albumin Globulin Ratio 1.0 Performing Lab: see note ML - The [facility] LB T4 Reviewed date:08/29/2024 06:58:57 PM Interpretation: Performing Lab: Notes/Report: [facility] , T4 Thyroxine 6.50 4.80-13.90 ug/dL Performing Lab: see note ML - The [facility] LB TSH Reviewed date:08/29/2024 06:58:57 PM Interpretation: Performing Lab: Notes/Report: [facility] , Thyroid Stimulating Hormone 1.117 0.358-3.740 uIU/mL Performing Lab: see note ML - The [facility] LB CBC AUTO DIFF Reviewed date:08/29/2024 06:58:57 PM Interpretation: Performing Lab: Notes/Report: [facility] , White Blood Count 5.8 4.0-11.0 10 3/uL Red Blood Count 4.87 4.20-5.40 10 6/uL Hemoglobin 14.5 12.0-16.0 g/dL Hematocrit 45.0 36.0-48.0 % Mean Corpuscular Volume 92.4 81.0-99.0 fL Mean Corpuscular Hemoglobin 29.8 26.7-34.0 pg Mean Corpuscular HGB Conc 32.2 29.9-35.2 g/dL Red Cell Distribution Width 12.8 11.0-15.0 % Platelet Count 287 150-450 10 3/uL Mean Platelet Volume 10.9 9.5-13.5 fL Neutrophils Percent Auto 46.7 43.0-75.0 % Lymphocytes Percent Auto 37.5 20.5-60.0 % Monocytes Percent Auto 10.2 1.7-12.0 % Eosinophils Percent Auto 4.7 0.9-7.0 % Basophils Percent Auto 0.7 0.2-2.0 % Immature Granulocytes Pct Auto 0.2 0.0-0.5 % Neutrophils Absolute Auto 2.7 1.4-6.5 10 3/uL Lymphocytes Absolute Auto 2.2 1.2-3.8 10 3/uL Monocytes Absolute Auto 0.6 0.3-0.8 10 3/uL Eosinophils Absolute Auto 0.3 0.0-0.7 10 3/uL Basophils Absolute Auto 0.0 0.0-0.1 10 3/uL Immature Granulocytes Abs Auto 0.01 0.00-0.03 10 3/uL Performing Lab: see note ML - The [facility] LB XR shoulder RT min 2V Reviewed date:07/26/2024 09:09:48 PM Interpretation: Performing Lab: Notes/Report: Source Facility: [facility]-[address] [place] [address] [place] [address] XRay Report Signed Patient: SHANIQUE CAMARGO MR#: [id number] : 1955 Acct:[id number] Age/Sex: 68 / F ADM Date: 07/25/24 Loc: RAD Attending Dr: Katelyn Kaufman M.D. Ordering Physician: Katelyn Kaufman M.D. Date of Service: 07/25/24 Procedure(s): XR shoulder RT min 2V Accession Number(s): [id number] cc: Katelyn Kaufman M.D. [place] [address] Patient Name: SHANIQUE CAMARGO MRN: [id number] date: 1955 Sex: F Assigned Patient Location: [facility] Current Patient Location: [facility] Accession/Order Number: [id number] Exam Date: 07/25/2024 17:31 Report Date: 07/25/2024 [...] Dhillon M.D. 07/25/2024 5:31 PM Dictation Location: [place] [address] Electronically authenticated by: [id number] Y Date: 07/25/2024 17:31 Dictated By: Dana Dhillon D.O. Signed By: 07/25/24 173 DD/ 30 TD/TT: Hydraulic And Plumbing Installer: The [address] [address] XRay Report Signed Patient: SUJIT CAMARGO MR#: [id number] : 1955 Acct:[id number] Age/Sex: 68 / F ADM Date: 07/25/24 Loc: RAD Attending Dr: Haresh Kaufman M.D. Ordering Physician: Katelyn Kaufman M.D. Date of Service: 07/25/24 Procedure(s): XR madelyn ulder RT min 2V Accession Number(s): [id number] cc: Katelyn Kaufman M.D. [address] [address] Patient Name: SHANIQUE CAMARGO MRN: [facility]:[id number] date: 1955 Sex: F Assigned Patient Location: RAD Current Patient Loca tion: RAD Accession/Order Numb er: [id number] Exam Date: 07/25/2024 17:31 Report Date: 07/25/2024 [...] Dhillon M.D. 07/25/2024 5:31 PM Dictation Location: [place] [address] Electronically authenticated by: [id number] Y Date: 07/25/2024 17:31 Dictated By: Joe Dhillon D.O. Signed By: 07/25/24 1734 DD/ 173 TD/TT: Hydraulic And Plumbing Installer: PROF Pabon(COMP METB) Reviewed date:03/06/2024 01:15:20 PM Interpretation: Performing Lab: Notes/Report: [facility] , Sodium 140 136-145 mmol/L Potassium 4.2 [...] 1.1 Performing Lab: see note ML - [facility] LB CBC AUTO DIFF Reviewed date:03/06/2024 01:15:20 PM Interpretation: Performing Lab: Notes/Report: [facility] , White Blood Count 8.5 4.0-11.0 10 [...] Performing Lab: see note ML - The [facility] hepatobiliary wo pharm Reviewed date:03/01/2024 06:55:03 PM Interpretation: Performing Lab: Notes/Report: Source Facility: [place] [address] Nuclear Medicine Report Signed Patient: SHANIQUE CAMARGO MR#: [id number] : 1955 Acct:[id number] Age/Sex: 68 / F ADM Date: 03/01/24 Loc: [place] Attending Dr: Katelyn Kaufman M.D. Ordering Physician: Katelyn Kaufman M.D. Date of Service: 03/01/24 Procedure(s): [place] hepatobiliary wo pharm Accession Number(s): [id number] cc: Katelyn Kaufman M.D. [place] [address] Patient Name: SHANIQUE CAMARGO MRN: [id number] date: 1955 Sex: F Assigned Patient Location: [place] Current Patient Location: [place] Accession/Order Number: [id number] Exam Date: 03/01/2024 06:40 Report Date: 03/01/2024 09:55 At the request of: KATELYN KAUFMAN Procedure: [place] hepatobiliary wo pharm EXAMINATION: [place] hepatobiliary wo pharm HISTORY: ABDOMINAL PAIN COMPARISON: [...] of common biliary ductal obstruction. OTHER: Negative. [place] hepatobiliary wo pharm IMPRESSION: No evidence of a biliary leak Electronically authenticated by: EDMOND CAAL Date: 03/01/2024 09:55 Dictated By: Edmond Caal M.D. Signed By: 03/01/24957 DD/ 4 TD/TT: Hydraulic And Plumbing Installer: [place] [address] Nuclear Medicine Report Signed Patient: SUJIT CAMARGO MR#: [id number] : 1955 Acct:[id number] Age/Sex: 68 / F ADM Date: 03/01/24 Loc: [place] Attending Dr: Haresh Kaufman M.D. Ordering Physician: Katelyn Kaufman M.D. Date of Service: 03/01/24 Procedure(s): [place] hepatobiliary wo pharm Accession Number(s): [id number] cc: Katelyn Kaufman M.D. [place] [address] Patient Name: SHANIQUE CAMARGO MRN: [id number] date: 1955 Sex: F Assigned Patient Location: [place] Current Patient Loca tion: [place] Accession/Order Numb er: [id number] Exam Date: 03/01/2024 06:40 Report Date: 03/01/2024 09:55 At the request of: KATELYN KAUFMAN Procedure: [place] hepatobiliary wo pharm EXAMINATION: [place] hepatobiliary wo pharm HISTORY: ABDOMINAL PAIN COMPARISON: [...] M.D. Signed By: 03/01/24957 DD/ 4 TD/TT: Hydraulic And Plumbing Installer: US abdomen complete Reviewed date:04/16/2024 08:37:05 AM Interpretation: Performing Lab: Notes/Report: Source Facility: [place] [address] Ultrasound Report Signed Patient: SHANIQUE CAMARGO MR#: [id number] : 1955 Acct:[id number] Age/Sex: 68 / F ADM Date: 02/11/24 Loc: US Attending Dr: Katelyn Kaufman M.D. Ordering Physician: Katelyn Kaufman M.D. Date of Service: 02/11/24 Procedure(s): US abdomen complete Accession Number(s): [id number] cc: Katelyn Kaufman M.D. [place] [address] Patient Name: SHANIQUE CAMARGO MRN: [facility]:[id number] date: 1955 Sex: F Assigned Patient Location: US Current Patient Location: LAB Accession/Order Number: [id number] Exam Date: 02/11/2024 07:30 Report Date: 02/11/2024 [...] Signed By: 04/13/24 1228 DD/ 1052 TD/TT: Hydraulic And Plumbing Installer: [place] [address] Ultrasound Report Signed Patient: SUJIT CAMARGO MR#: [id number] : 1955 Acct:[id number] Age/Sex: 68 / F ADM Date: 02/11/24 Loc: US Attending Dr: Haresh Kaufman M.D. Ordering Physician: Katelyn Kaufman M.D. Date of Service: 02/11/24 Procedure(s): US abd omen complete Accession Number(s): [id number] cc: Katelyn Kaufman M.D. [place] [address] Patient Name: SHANIQUE CAMARGO MRN: [id number] date: 1955 Sex: F Assigned Patient Location: US Current Patient Loca tion: LAB Accession/Order Numb er: [id number] Exam Date: 07:30 Report Date: 02/11/2024 10:52 [...] Signed By: 04/13/24 1228 DD/ 1052 TD/TT: Hydraulic And Plumbing Installer: ECG 12 lead Reviewed date:12/12/2023 04:06:54 PM Interpretation: Performing Lab: Notes/Report: Source Facility: [place] [address] Electrocardiograph Report Signed Patient: SHANIQUE CMAARGO MR#: [id number] : 1955 Acct:[id number] Age/Sex: 67 / F ADM Date: 12/10/23 Loc: PST Attending Dr: Kamron Hayden D.O. Ordering Physician: Kala Asencio NP Date of Service: 12/10/23 Procedure(s): ECG 12 lead Accession Number(s): [id number] cc: [facility] Test Date: 2023-12-10 Pat Name: SHANIQUE CAMARGO Department: Room: - Gender: Female Pit Clerk: : 1955 Requested By: KATELYN KAUFMAN Order Number: [id number] Reading MD: RANDELL HERNANDEZ Measurements Intervals [place] Rate: 67 P: 35 NH: 144 QRS: 44 QRSD: 87 T: 30 QT: 371 QTc: 394 Interpretive Statements SINUS RHYTHM Compared to ECG 08/22/2020 11:34:46 Right-axis deviation no longer present Electronically Signed On 12-12-2023 12:39:01 EDT by RANDELL HERNANDEZ Dictated By: Randell Hernandez D.O. Signed By: 12/12/23 1239 DD/ 1421 TD/TT: Hydraulic And Plumbing Installer: [place] [address] Electrocardiograph Report Signed Patient: SUJIT CAMARGO MR#: [id number] : 1955 Acct:[id number] Age/Sex: 67 / F ADM Date: 12/10/23 Loc: PST Attending Dr: Kamron Hayden D.O. Ordering Physician: Kala Asencio NP Date of Service: 12/10/23 Procedure(s): ECG 12 lead Accession Number(s): [id number] cc: [facility] Test Date: 2023-12-10 Pat Name: SHANIQUE BARR Department: 49 Room: - Gender: Female Pit Clerk: : 1955 Requ ested By: KATELYN KAUFMAN Order Number: [id number] Reading MD: RANDELL HERNANDEZ Measurements Intervals [place] Rate: 67 P: 35 NH: 144 QRS: 44 QRSD: 87 T: 30 QT: 371 QTc: 394 Interpretive Statements SINUS RHYTHM Compared to ECG 08/22/2020 11:34:46 Right-axis deviation no longer present Electronically Della d On 12-12-2023 12:39:01 EDT by RANDELL HERNANDEZ Dictated By: Randell Hernandez D.O. Signed By: 12/12/23 1239 DD/ 1421 TD/TT: Hydraulic And Plumbing Installer: [place] cineradiography Reviewed date:11/09/2023 02:09:24 PM Interpretation: Performing Lab: Notes/Report: Source Facility: [place] [address] [place] [address] Fluoroscopy Report Signed Patient: SHANIQUE CAMARGO MR#: [id number] : 1955 Acct:[id number] Age/Sex: 67 / F ADM Date: 11/09/23 Loc: [place] Attending Dr: Katelyn Kaufman M.D. Ordering Physician: Katelyn Kaufman M.D. Date of Service: 11/09/23 Procedure(s): [place] cineradiography Accession Number(s): [id number] cc: Katelyn Kaufman M.D. The [place] [id number] Patient Name: SHANIQUE CAMARGO MRN: [id number] date: 1955 Sex: F Assigned Patient Location: [place] Current Patient Location: [place] Accession/Order Number: [id number] Exam Date: 11/09/2023 08:03 Report Date: 11/09/2023 [...] M.D. Signed By: 11/09/23911 DD/ 8 TD/TT: Hydraulic And Plumbing Installer: [place] [address] Fluoroscopy Report Signed Patient: SUJIT CAMARGO MR#: [id number] : 1955 Acct:[id number] Age/Sex: 67 / F ADM Date: 11/09/23 Loc: [place] Attending Dr: Haresh Kaufman M.D. Ordering Physician: Katelyn Kaufman M.D. Date of Service: 11/09/23 Procedure(s): [place] cineradiography Accession Number(s): [id number] cc: Katelyn Kaufman M.D. The [place] [address] Patient Name: SHANIQUE CAMARGO MRN: [id number] date: 1955 Sex: F Assigned Patient Location: [place] Current Patient Loca tion: [place] Accession/Order Numb er: [id number] Exam Date: 11/09/2023 08:03 Report Date: 11/09/2023 [...] M.D. Signed By: 11/09/23911 DD/ 8 TD/TT: Hydraulic And Plumbing Installer: ZAIN tomosynthesis screening B I Reviewed date:10/31/2023 08:04:56 PM Interpretation: Performing Lab: Notes/Report: Source Facility: [facility]-[address] [place] [address] [place] [address] Mammography Report Signed Patient: SHANIQUE CAMARGO MR#: [id number] : 1955 Acct:[id number] Age/Sex: 67 / F ADM Date: 10/28/23 Loc: MAMMO Attending Dr: Katelyn Kaufman M.D. Ordering Physician: Katelyn Kaufman M.D. Results: Date of Service: 10/28/23 Follow Up: Procedure(s): MM tomosynthesis screening BI Accession Number(s): [id number] cc: Katelyn Kaufman M.D. Patient Name: SHANIQUE CAMARGO MR#: [id number] : 1955 Exam Date: 10/28/2023 Ordering Doctor: [...] colon cancer at age 70. LOCATION: [facility] BREAST COMPOSITION: The breasts are almost [...] Signed By: 10/29/23 1603 DD/ 1601 TD/TT: Hydraulic And Plumbing Installer: [place] [address] Mammography Report Signed Patient: SUJIT CAMARGO MR#: [id number] : 1955 Acct:[id number] Age/Sex: 67 / F ADM Date: 10/28/23 Loc: MAMMO Attending Dr: Haresh Kaufman M.D. Ordering Physician: Katelyn Kaufman M.D. Results: Date of Service: 07/15 Follow Up: Procedure(s): MM tomosynthesis screening BI Accession Number(s): [id number] cc: Katelyn Kaufman M.D. Patient Name: SHANIQUE CAMARGO MR#: [id number] : 1955 Exam Date: 10/28/2023 Ordering Doctor: [...] colon cancer at age 70. LOCATION: [facility] BREAST COMPOSITION: The breasts are almost [...] Signed By: 10/29/23 1603 DD/ 1601 TD/TT: Hydraulic And Plumbing Installer: Campylobacter Culture Reviewed date:10/17/2023 09:23:42 PM Interpretation: Performing Lab: Notes/Report: [facility] , Campylobacter Culture See Below For Report Campylobacter Culture No Campylobacter species isolated. Performing Lab: see note LC - [facility] LB Salmonella/Shigella Screen Reviewed date:10/17/2023 09:23:42 PM Interpretation: Performing Lab: Notes/Report: [facility] , Salmonella/Shigella Screen See Below For Report Salmonella/Shigella Screen Salmonella/Shigella Screen No Salmonella or Shigella recovered. Salmonella/Shigella Screen Performing Lab: see note - [facility] LB E coli Shiga Toxin EIA Reviewed date:10/17/2023 09:23:42 PM Interpretation: Performing Lab: Notes/Report: [facility] , E coli Shiga Toxin EIA See Below For Report E coli Shiga Toxin EIA WILL FOLLOW E coli Shiga Toxin EIA Negative E coli Shiga Toxin EIA WILL FOLLOW E coli Shiga Toxin EIA Performed at: [facility] E coli Shiga Toxin EIA WILL FOLLOW E coli Shiga Toxin EIA [address] [place], [place] [id number] E coli Shiga Toxin EIA WILL FOLLOW E coli Shiga Toxin EIA Fire Apparatus Engineer: Jose Alejandro Benjamin PhD, Phone: [phone] E coli Shiga Toxin EIA WILL FOLLOW Performing Lab: see note - [facility] LB SEE REPORT - Head Baker Id information not found for OBX-specific print producer legend C. Difficile PCR Reviewed date:10/12/2023 07:29:51 PM Interpretation: Performing Lab: Notes/Report: [facility] , C. Difficile PCR NEGATIVE NEGATIVE Performing Lab: see note - [facility] LB CREATININE Reviewed date:09/23/2023 07:03:55 PM Interpretation: Performing Lab: Notes/Report: [facility] , Creatinine 0.66 0.55-1.02 mg/dL Estimated GFR ( Shireen >60 >=60 Estimated GFR (Non- Isela >60 >=60 Performing Lab: see note - [facility] LB US right upper quadrant Reviewed date:09/19/2023 11:16:06 AM Interpretation: Performing Lab: Notes/Report: Source Facility: [facility]-[address] [place] [address] [place] [address] Ultrasound Report Signed Patient: SHANIQUE CAMARGO MR#: [id number] : 1955 Acct:[id number] Age/Sex: 67 / F ADM Date: 09/17/23 Loc: US Attending Dr: Katelyn Kaufman M.D. Ordering Physician: Katelyn Kaufman M.D. Date of Service: 09/17/23 Procedure(s): US right upper quadrant Accession Number(s): [id number] cc: Katelyn Kaufman M.D. [place] [address] Patient Name: SHANIQUE CAMARGO MRN: [id number] date: 1955 Sex: F Assigned Patient Location: US Current Patient Location: US Accession/Order Number: [id number] Exam Date: 09/17/2023 10:20 Report Date: 09/17/2023 [...] Signed By: 09/17/23 1631 DD/ 1628 TD/TT: [employer] Installer: [place] [address] Ultrasound Report Signed Patient: SUJIT CAMARGO MR#: [id number] : 1955 Acct:[id number] Age/Sex: 67 / F ADM Date: 09/17/23 Loc: US Attending Dr: Haresh Kaufman M.D. Ordering Physician: Katelyn Kaufman M.D. Date of Service: 09/17/23 Procedure(s): US rig ht upper quadrant Accession Number(s): [id number] cc: Katelyn Kaufman M.D. [address] [address] Patient Name: SHANIQUE CAMARGO MRN: [id number] date: 1955 Sex: F Assigned Patient Location: US Current Patient Loca tion: US Accession/Order Numb er: [id number] Exam Date: 09/17/2023 10:20 Report Date: 09/17/2023 [...] Signed By: 09/17/23 1631 DD/ 1628 TD/TT: [employer] Installer: UA (Urinalysis, Dipstix only - w/o micro) [...] UROBILINOGEN n NITRITE + LEUKOCYTE ESTERASE ++ LIPASE Reviewed date:03/06/2024 01:15:20 PM Interpretation: Performing Lab: Notes/Report: [facility] , Lipase 37.0 16.0-77.0 U/L Performing Lab: see note - [facility] LB AMYLASE Reviewed date:03/06/2024 01:15:20 PM Interpretation: Performing Lab: Notes/Report: [facility] , Amylase 46 25-115 U/L Performing Lab: see note - [facility] LB CT abdomen pelvis w con Reviewed date:01/09/2024 01:25:50 PM Interpretation: Performing Lab: Notes/Report: Source Facility: [place] [address] CT Scan Report Signed Patient: SHANIQUE CAMARGO MR#: [id number] : 1955 Acct:[id number] Age/Sex: 68 / F ADM Date: 01/07/24 Loc: ER Attending Dr: Ordering Physician: Dana Mckeon Date of Service: 01/07/24 Procedure(s): CT abdomen pelvis w con Accession Number(s): [id number] cc: Katelyn Kaufman M.D. [place] [id number] Patient Name: SHANIQUE CAMARGO MRN: [id number] date: 1955 Sex: F Assigned Patient Location: ER Current Patient Location: ED.MAIN Accession/Order Number: [id number] Exam Date: 01/07/2024 08:15 Report Date: 01/07/2024 [...] M.D. Signed By: 01/07/2401 DD/ 0858 TD/TT: [employer] Installer: [place] [address] CT Scan Report Signed Patient: SUJIT CAMARGO MR#: [id number] : 1955 Acct:[id number] Age/Sex: 68 / F ADM Date: 01/07/24 Loc: ER Attending Dr: Ordering Physician: Dana Mckeon Date of Service: 01/07/24 Procedure(s): CT abd omen pelvis w con Accession Number(s): [id number] cc: Katelyn Kaufman M.D. [place] [address] [address] [place] [id number] Patient Name: SHANIQUE CAMARGO MRN: [id number] date: 1955 Sex: F Assigned Patient Location: ER Current Patient Loca tion: ED.MAIN Accession/Order Numb er: [id number] Exam Date: 08:15 Report Date: 01/07/2024 08:58 [...] M.D. Signed By: 01/07/24900 DD/ 7 TD/TT: [employer] Installer: Troponin I High Sensitivity Reviewed date:01/09/2024 01:25:50 PM Interpretation: Performing Lab: Notes/Report: [facility] , Troponin I High Sensitivity 5.9 4.0-51.3 pg/mL CUT-OFF POINTS HAVE BEEN ESTABLISHED BASED ON THE FOURTH UNIVERSAL DEFINITION OF MYOCARDIAL INFARCTION. THE UPPER REFERENCE LIMIT (URL) OF TROPONIN, DEFINED THE 99TH PERCENTILE OF cTnI DISTRIBUTION IN A REFERENCE POPULATION, HAS BEEN CONFIRMED THE DECISION THRESHOLD FOR CA DIAGNOSIS. 99TH PERCENTILE = 51.4 PG/ML NOTE: HIGH-SENSITIVITY TROPONIN ASSAY IS NOT INTENDED TO BE USED IN ISOLATION BUT SHOULD BE INTERPRETED IN CONJUNCTION WITH OTHER DIAGNOSTIC AND CLINICAL INFORMATION. Performing Lab: see note ML - The [facility] LB UA RANDOM W or MICROSCOPIC Reviewed date:01/09/2024 01:25:50 PM Interpretation: Performing Lab: Notes/Report: [facility] , Color Urine YELLOW YELLOW Clarity Urine CLEAR CLEAR Specific Garrison Urine >=1.030 1.005-1.025 pH Urine 5.5 5.0-9.0 [...] Performing Lab: see note ML - The [facility] LB PROF 14(COMP METB) Reviewed date:01/09/2024 01:25:50 PM Interpretation: Performing Lab: Notes/Report: [facility] , Sodium 143 136-145 mmol/L Potassium [...] 1.1 Performing Lab: see note ML - [facility] LB LIPASE Reviewed date:01/09/2024 01:25:50 PM Interpretation: Performing Lab: Notes/Report: [facility] , Lipase 31.0 16.0-77.0 U/L Performing Lab: see note ML - [facility] LB LACTATE or LACTIC ACID Reviewed date:01/09/2024 01:25:50 PM Interpretation: Performing Lab: Notes/Report: [facility] , Lactate/Lactic Acid 0.6 0.4-2.0 mmol/L Performing Lab: see note ML - [facility] LB CBC AUTO DIFF Reviewed date:01/09/2024 01:25:50 PM Interpretation: Performing Lab: Notes/Report: [facility] , White Blood Count 7.4 4.0-11.0 [...] 3/uL Performing Lab: see note ML - [facility] NM hepatobiliary w pharm Reviewed date:12/02/2023 07:16:07 PM Interpretation: Performing Lab: Notes/Report: Source Facility: [place] [address] [place] [address] Nuclear Medicine Report Signed with Erlinda Patient: SHANIQUE CAMARGO MR#: [id number] : 1955 Acct:[id number] Age/Sex: 67 / F ADM Date: 12/02/23 Loc: US Attending Dr: Katelyn Kaufman M.D. Ordering Physician: Katelyn Kaufman M.D. Date of Service: 12/02/23 Procedure(s): NM hepatobiliary w pharm Accession Number(s): [id number] cc: Katelyn Kaufman M.D. ADDENDUM [facility] [place] [address] Patient Name: SHANIQUE CAMARGO MRN: [id number] date: 1955 Sex: F Assigned Patient Location: US Current Patient Location: US Accession/Order Number: [id number] Exam Date: 12/02/2023 08:00 Report Date: 12/02/2023 [...] Addendum Cosigned By: DD/ /15/1502 TD/TT: / [place] [id number] Patient Name: SHANIQUE CAMARGO MRN: [facility]:[id number] date: 1955 Sex: F Assigned Patient Location: US Current Patient Location: US Accession/Order Number: [id number] Exam Date: 12/02/2023 08:00 Report Date: 12/02/2023 [...] minutes. (Normal EF > 38%). OTHER: Negative. [place] hepatobiliary w pharm IMPRESSION: 1. Abnormal gallbladder emptying suggestive of dyskinesia or ball-valve type obstruction. Electronically authenticated by: SUHAS HOLDEN Date: 12/02/2023 13:03 Dictated By: Suhas Holden M.D. Signed By: 12/02/23 1305 DD/ 1303 TD/TT: [employer] Installer: [place] [address] Nuclear Medicine Report Signed with Addenda Patient: SUJIT CAMARGO MR#: [id number] : 1955 Acct:[id number] Age/Sex: 67 / F ADM Date: 12/02/23 Loc: US Attending Dr: Haresh Kaufman M.D. Ordering Physician: Katelyn Kaufman M.D. Date of Service: 12/02/23 Procedure(s): NM hepatobiliary w pharm Accession Number(s): [id number] cc: Katelyn Kaufman M.D. ADDENDUM The [place] [id number] Patient Name: SHANIQUE CAMARGO MRN: [id number] date: 1955 Sex: F Assigned Patient Location: US Current Patient Loca tion: US Accession/Order Numb er: [id number] Exam Date: 08:00 Report Date: 12/02/2023 15:03 [...] By: <Electronically signed by Suhas Holden M.D.> 10/10/24 1511 Addendum Cosigned By: DD/ /15/1502 TD/TT: / [place] [address] Patient Name: SHANIQUE CAMARGO MRN: [id number] date: 1955 Sex: F Assigned Patient Location: US Current Patient Loca tion: US Accession/Order Numb er: [id number] Exam Date: 08:00 Report Date: 12/02/2023 13:03 At the request of: KATELYN KAUFMAN Procedure: NM hepatobiliary w pharm EXAMINATION: WI hepatobiliary w pharm HISTORY: ABDOMINAL P AIN [...] M.D. Signed By: 12/02/231304 DD/ 02 TD/TT: [employer] Installer: MR susan sesay Reviewed date:04/26/2024 09:04:53 PM Interpretation: Performing Lab: Notes/Report: Source Facility: [facility]-[address] [place] [address] [place] [address] Magnetic Resonance Report Signed Patient: SHANIQUE CAMARGO MR#: [id number] : 1955 Acct:[id number] Age/Sex: 68 / F ADM Date: 04/26/24 Loc: MRI Attending Dr: Katelyn Kaufman M.D. Ordering Physician: Katelyn Kaufman M.D. Date of Service: 04/26/24 Procedure(s): MR angio abdomen wo con Accession Number(s): [id number] cc: Katelyn Kaufman M.D. [place] [address] Patient Name: SHANIQUE CAMARGO MRN: [id number] date: 1955 Sex: F Assigned Patient Location: MRI Current Patient Location: MRI Accession/Order Number: [id number] Exam Date: 04/26/2024 15:43 Report Date: 04/26/2024 15:50 At the request of: KATELYN KAUFMAN MD Procedure: MR angio abdomen wo con MRA of the abdomen without IV contrast. Reason for exam: Chronic abdominal pain COMPARISON: CT abdomen and pelvis 01/07/2024. TECHNIQUE: Multisequence, multiplanar imaging of the abdomen was obtained. Additional wzmo-ep-tdcfkk imaging of the aorta and its major [...] Glasgow Jr., D.OArpita04/26/2024 3:50 PM Dictation Location: [place] [address] Electronically authenticated by: [id number] Y Date: 04/26/2024 15:50 Dictated By: Yordy Glasgow M.D. 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 Ordering Physician: Katelyn Kaufman M.D. Date of Service: 04/26/24 Procedure(s): MR ang io abdomen wo con Accession Number(s): [id number] cc: Katelyn Kaufman M.D. [place] [address] Patient Name: SHANIQUE CAMARGO MRN: [id number] date: 1955 Sex: F Assigned Patient Location: MRI Current Patient Loca tion: MRI Accession/Order Numb er: [id number] Exam Date: 04/26/2024 15:43 Report Date: 04/26/2024 [...] Glasgow Jr., D.OArpita04/26/2024 3:50 PM Dictation Location: [place] [address] Electronically authenticated by: [id number] Y Date: 04/26/2024 15:50 Dictated By: Yordy Glasgow M.D. Signed By: 04/26/24 155 DD/ 49 TD/TT: [employer] Installer: Reason For Referral Reason when is patient due for a colonoscopy Diagnosis 1 Screening for colon cancer (Z12.11) Referral Organization [facility] Referring Provider First Name Stanton Referring Provider Last Name Shae [facility]erred Provider Jovan Bolden Referred Provider Specialty General Surg zulema Referral Priority Routine Diagnosis 1 Epigastric abdominal pain (R10.13) Diagnosis 2 Diverticulosis (K57. 90) Referral Organization [facility] Referring Provider First Name Stanton Referring Provider Last Name Shae [facility] Referred Provider Jovan Bolden Referred Provider Specialty General Surg zulema Referral Priority Routine Diagnosis 1 GERD (gastroesophage al reflux disease) (K21.9) Referral Organization [facility] Referring Provider First Name Stanton Referring Provider Last Name Shae [facility] Referred Provider Jovan Bolden Referred Provider Specialty General Surg zulema Referral Priority Routine Diagnosis 1 Epigastric abdominal pain (R10.13) Referral Organization [facility] Referring Provider First Name Stanton Referring Provider Last Name Shae Referring Provider [facility] Referred Provider Kamron Hayden Referred Provider Specialty Surgery Referral Priority Routine Diagnosis 1 Upper abdominal pain (R10.10) Referral Organization [facility] Referring Provider First Name Stanton Referring Provider Last Name Shae [facility] Referred Provider Jovan Bolden Referred Provider Specialty General Surg zulema Referral Priority Routine Diagnosis 1 Abdominal pain (R10. 9) Diagnosis 2 GERD (gastroesophage al reflux disease) (K21.9) Diagnosis 3 Abnormal gall bladde r diagnostic imaging (R93.2) Referral Organization [facility] Referring Provider First Name Stanton Referring Provider Last Name Shae Referring Provider [facility] Referred Provider Josseline Diggs Referred Provider Specialty Gastroentero logy Referral Priority Routine Diagnosis 1 Intestinal angina (K 55.1) Referral Organization [facility] Referring Provider First Name Stanton Referring Provider Last Name huyen Referring Provider Speciality [facility] doris Referred Provider Specialty Gastroentero logy Referral Priority Routine Diagnosis 1 Bile duct leak (K83. 8) Referral Organization [facility] Referring Provider First Name Stanton Referring Provider Last Name Shae [facility] Referred Provider Fawad Mcintosh Referred Provider [...] Problem Status W/U Status Risk Notes Problem [id number] Age-related osteoporosis without current pathological fracture (M81.0) Active confirmed Problem Abdominal pain (47422370) Abdominal pain (R10.9) Active confirmed Problem Gastroesophageal reflux disease (470448933) GERD (gastroesophageal reflux disease) (K21.9) Active confirmed Problem Epigastric pain (26477000) Epigastric abdominal pain (R10.13) Active confirmed Problem Osteoarthritis of knee (955791414) Knee osteoarthritis (M17.9) Active confirmed Problem Diverticular disease of colon (236351304) Diverticulosis (K57.90) Active confirmed Problem Acute sinusitis (02893539) Acute sinusitis (J01.90) Active confirmed Problem Acute bronchitis (22538702) Acute bronchitis (J20.9) Active confirmed Problem Sciatica (99607480) Sciatic leg pain (M54.30) Active confirmed Problem Tubular adenoma (935837505) Tubular adenoma (D36.9) Active confirmed Problem Upper abdominal pain (49749701) Upper abdominal pain (R10.10) Active confirmed Problem Intestinal angina (075787209) Intestinal angina (K55.1) Active confirmed Problem Bile duct leakage (disorder) (482546409) Bile duct leak (K83.8) Active confirmed Problem Osteoarthritis of knee (485030144) Knee osteoarthritis (M17.10) Active confirmed Vital Signs Temperature 98.2 degrees Fahrenheit 06/02/2024 Blood pressure diastolic 78 mm Hg 08/23/2024 Height 61 in 08/23/2024 Blood pressure systolic 112 mm Hg 08/23/2024 Weight 156 lbs 08/23/2024 BMI 29.47 kg/m2 08/23/2024 Procedures Procedure Date Ordered Date Performed Result Body Sit e Colonoscopy 03/29/2024 Normal Encounters Encounter Location Date Provider Diagnosis [facility] [address] [place] [address] 04/20/2024 Stanton huyen Intestinal angina K5 5.1 ; Upper abdominal pain R10.10 and Bile duct leak K83.8 [facility] [address] [place] [address] 04/26/2024 Stanton [facility] [address] [place] [address] 06/14/2024 Stanton [facility] [address] [place] [address] 07/26/2024 Stanton [facility] [address] [place] [address] 08/29/2024 Stanton [facility] [address] [place] [address] 03/01/2024 Stanton [facility] [address] [place] [address] 03/01/2024 Stanton [facility] [address] [place] [address] 03/03/2024 Stanton [facility] [address] [place] [address] 03/06/2024 Stanton [facility] [address] [place] [address] 03/10/2024 Stanton [facility] [address] [place] [facility] [address] 04/16/2024 Stanton Hoy [facility] [address] [place] [facility] [address] 12/15/2023 Stanton Hoy [facility] [address] [place] [facility] [address] 02/02/2024 Stanton Hoy Upper abdominal pain R10.10 [facility] [address] [place] [place] [address] 02/10/2024 Stanton Hoy [facility] [address] [place] [facility] [place] [address] 02/11/2024 Stanton Hoy Upper abdominal pain R10.10 [facility] [address] [place] [place] [address] 02/14/2024 Stanton Hoy Abdominal pain R10.9 and GERD (gastroesophageal reflux disease) K21.9 [facility] [address] [place] [place] [address] 02/28/2024 Stanton Dannyy [facility] [address] [place] [facility] [place] [address] 10/14/2023 Stanton Dannyy [facility] [address] [place] [facility] [place] [address] 10/17/2023 Stanton Hoy [facility] [address] [place] [place] [address] 10/31/2023 Stanton Hoy [facility] [address] [facility] [place] [address] 11/01/2023 Stanton Hoy GERD (gastroesophage al reflux disease) K21.9 [facility] [address] [place] [facility] [place] [address] 11/09/2023 Stanton Hoy [facility] [address] [place] [facility] [place] [address] 12/02/2023 Stanton Hoy Epigastric abdominal pain R10.13 and Abnormal gall bladder diagnostic imaging R93.2 [facility] [address] [place] [facility] [place] [address] 09/21/2023 Stanton Hoy Screening for colon cancer Z12.11 [facility] [address] [place] [facility] [place] [address] 09/21/2023 Stanton Hoy [facility] [address] [place] [place] [address] 09/21/2023 Stanton Hoy Encounter for diagno stic endoscopy Z01.818 [facility] [address] [place] [place] [address] 09/24/2023 Stanton Hoy [facility] [address] [place] [facility] [place] [address] 09/28/2023 Stanton Hoy Epigastric abdominal pain R10.13 [facility] [address] [place] [place] [address] 10/12/2023 Stanton Hoy [facility] [address] [place] [place] [address] 09/10/2023 Stanton Hoy Unspecified abdomina l pain R10.9 [facility] [address] [place] [place] [address] 09/17/2023 Stanton Hoy Epigastric abdominal pain R10.13 and Unspecified abdominal pain R10.9 [facility] [address] [place] [place] [address] 09/19/2023 Stanton Hoy [facility] [address] [place] [place] [address] 04/20/2024 Stanton Hoy GERD (gastroesophage al reflux disease) K21.9 and Intestinal angina K55.1 [facility] [address] [place] [place] [address] 08/18/2024 Stanton Hoy Knee osteoarthritis M17.9 [facility] [address] [place] [place] [address] 08/23/2024 Stanton Hoy Encounter for Medica re annual wellness exam Z00.00 [facility] [address] [place] [place] [address] 06/14/2024 Stanton Hoy UTI (urinary tract infection) N39.0 [facility] [address] [place] [facility] [address] 09/09/2023 Stanton Hoy Epigastric abdominal pain R10.13 [facility] [address] [place] [address] 09/21/2023 Stanton Hoy Gastroenteritis K52. 9 and Abdominal pain R10.9 [facility] [address] [place] [place] [address] 10/11/2023 Stanton Hoy Gastroenteritis K52. 9 [facility] [address] [place] [place] [address] 04/05/2024 Stanton Hoy Acute non-recurrent sinusitis, unspecified location J01.90 and Nasal congestion R09.81 [facility] [address] [place] [address] 06/02/2024 Stanton Hoy Burning with urinati on R30.0 ; UTI (urinary tract infection), uncomplicated N39.0 and Dysuria R30.0 [facility] [address] [place] [facility] [place] [address] 07/24/2024 Stanton Hoy Shoulder impingement M25.819 and Impingement of right shoulder M25.811 [facility] [address] [place] [place] [address] 10/29/2023 Stanton Hoy GERD (gastroesophage al reflux disease) K21.9 [facility] [address] [place] [place] [address] 11/26/2023 Stanton Hoy Abdominal pain R10.9 [facility] [address] [place] [place] [address] 01/10/2024 Stanton Hoy Upper abdominal pain R10.10 [facility] [address] [place] [place] [address] 01/19/2024 Stanton Hoy Knee osteoarthritis M17.10 and Knee pain, left M25.562 [facility] [address] [place] [place] [address] 02/07/2024 Stanton Hoy Gastroenteritis K52. 9 [facility] [address] [place] [address] 02/28/2024 Stanton Hoy Abdominal pain R10.9 [facility] [address] [facility] [place] [address] 03/06/2024 Stanton Hoy Epigastric abdominal pain R10.13 Assessments Encounter Date Diagnosis (ICD Code) Assessment Notes Treatment Notes Treatment Clinical Notes Section Notes 04/20/2024 GERD (gastroesophageal reflux disease) (ICD-10 - K21.9) 04/20/2024 Intestinal angina (ICD-10 - K55.1) 06/02/2024 Burning with urination (ICD-10 - R30.0) 09/09/2023 Epigastric abdominal pain (ICD-10 - R10.13) 09/21/2023 Gastroenteritis (ICD-10 - K52.9) Get plenty of rest. Stay hydrated by sucking on ice chips or taking small sips of water. You can also try drinking clear soda, clear broths or noncaffeinated sports drinks. Stop eating solid foods for a few hours to let your stomach settle. East back into eating by eating bland, pfjp-ep-vxhtza foods like crackers, toast, gelatin, bananas, rice and chicken. Try to avoid foods/substances including dairy products, caffeine, alcohol, nicotine and fatty or highly seasoned foods. Medications such as ibuprofen or tylenol can make your stomach more upset, so use sparingly if at all. Also avoid zxoi-gzf-dsidbfa anti-diarrheal medications because it can make it harder for your body to eliminate the virus. 09/21/2023 Abdominal pain (ICD-10 - R10.9) 10/11/2023 Gastroenteritis (ICD-10 - K52.9) Get plenty of rest. Stay hydrated by sucking on ice chips or taking small sips of water. You can also try drinking clear soda, clear broths or noncaffeinated sports drinks. Stop eating solid foods for a few hours to let your stomach settle. East back into eating by eating bland, xjma-mt-aaqhdh foods like crackers, toast, gelatin, bananas, rice and chicken. Try to avoid foods/substances including dairy products, caffeine, alcohol, nicotine and fatty or highly seasoned foods. Medications such as ibuprofen or tylenol can make your stomach more upset, so use sparingly if at all. Also avoid ggmm-qta-mvdngyw anti-diarrheal medications because it can make it harder for your body to eliminate the virus. 10/29/2023 GERD (gastroesophageal reflux disease) (ICD-10 - K21.9) 11/26/2023 Abdominal pain (ICD-10 - R10.9) 01/10/2024 Upper abdominal pain (ICD-10 - R10.10) 01/19/2024 Knee osteoarthritis (ICD-10 - M17.10) 01/19/2024 Knee pain, left (ICD-10 - M25.562) 02/07/2024 Gastroenteritis (ICD-10 - K52.9) Get plenty of rest. Stay hydrated by sucking on ice chips or taking small sips of water. You can also try drinking clear soda, clear broths or noncaffeinated sports drinks. Stop eating solid foods for a few hours to let your stomach settle. East back into eating by eating bland, kokz-rp-yndlkq foods like crackers, toast, gelatin, bananas, rice and chicken. Try to avoid foods/substances including dairy products, caffeine, alcohol, nicotine and fatty or highly seasoned foods. Medications such as ibuprofen or tylenol can make your stomach more upset, so use sparingly if at all. Also avoid atob-kik-epkwyri anti-diarrheal medications because it can make it harder for your body to eliminate the virus. 02/28/2024 Abdominal pain (ICD-10 - R10.9) 03/06/2024 Epigastric abdominal pain (ICD-10 - R10.13) 04/05/2024 Acute non-recurrent sinusitis, unspecified location (ICD-10 - J01.90) Rest and drink more liquids, especially water. You may use a humidifier or vaporizer to help keep the drainage moist. Syeg-xxk-tiheqhh Nasal Saline may help the stuffy and runny nose. Use Ibuprofen and or Tylenol as needed for fever, chills, body aches or pain. Children 5 years old should not be given nppx-ogb-bbebqfq cough and cold medications such as guaifenesin and dextromethorphan. If you're over age 5, you may try xznh-ind-noftpjm cold medications such as guaifenesin and dextromethorphan, [...] symptoms do not improve within 3-5 days 06/14/2024 UTI (urinary tract infection) (ICD-10 - N39.0) 07/24/2024 Shoulder impingement (ICD-10 - M25.819) 07/24/2024 Impingement of right shoulder (ICD-10 - M25.811) 08/23/2024 Encounter for Medicare annual wellness exam [...] 09/17/2023 Epigastric abdominal pain (ICD-10 - R10.13) 09/17/2023 Unspecified abdominal pain (ICD-10 - R10.9) 09/21/2023 Screening for colon cancer (ICD-10 - [...] K21.9) 04/20/2024 Intestinal angina (ICD-10 - K55.1) 04/20/2024 Upper abdominal pain (ICD-10 - R10.10) 04/20/2024 Bile duct leak (ICD-10 - K83.8) [...] until they are finished. You can use jvtd-mkp-emcwggg acetaminophen or ibuprofen if needed for pain. [...] PCR STOOL 10/11/2023 CBC W/AUTO DIFF 08/23/2024 VIT B12 AND FOLATE 06/23/2023 CT [...] Insured Coverage Start Date Coverage End Date [employer] [facility] [employer] [address] [address] [place] [phone] [id number] Shanique Camargo Self - patient is the insured 4 Medical (General) History Medical History History ICD Code Arthritis M19.90 Inguinal hernia K40.90 Diverticular disease K57.90 Surgical History Surgery Date(Month/Year) EGD 05/10/24 Colonoscopy, polyp x3- Dr Diggs 5 gallbladder removed 12/13/23 Left Knee Surgery 01/12/16 Hysterectomy 1989 Tonsillectomy 1964 Carpal Tunnel 2002 Right Knee Surgery 11/12/15 Hernia Repair EGD 11/24/2023
--- OUTSIDE RECORDS SUMMARY | 2024-08-30 08:07 | XMS_ITS | Clinical Summary ---
Author Organization [employer] tem Address [id number] [address] [place] [address] Care Team Providers Care General Laborer Name Role Phone Kalee Burden DO, Charles [...] Devices Not on file [place] [address] [employer] Care Teams General Laborer Relationship Specialty Start Date End Date Wes Granda Jr., DO [facility] [place] [address] PCP - General Internal Medicine 09/23/16
== END 2024-08-30 08:05 | disposition home or self-care (01) ==
LOC: LAB 08:04
PROVIDERS: PCP Family Medicine; Visit Provider Family Medicine
DX: Z00.00 Encounter for general adult medical examination without abnormal findings (principal); K52.9 Noninfective gastroenteritis and colitis, unspecified; R10.9 Unspecified abdominal pain; R53.83 Other fatigue
CPT/HCPCS: G0328

== ENCOUNTER 2025-02-07 09:34 | Outpatient (OUT) | payer MEDICARE, SELFPAY ==
--- OUTSIDE RECORDS SUMMARY | 2023-10-18 08:40 | XMS_ITS ---
Author Organization [facility] Address [address] [place] [address] Care Team Providers Care Custodian Manager Name Role Phone Merrill Kaufman Primary Care Provider Jas Correa Unavailable [phone] REASON FOR VISIT left knee pain recheck Encounters Encounter Location Date Provider Diagnosis [facility] Office [address] [facility] [place] [address] 10/18/2023 Jas Kelly Plan Of Treatment No Information Progress Notes * CYRILRUPERT MARY JO LDOB:[birth year] (69 yo F)Acc No.[id number]:10/18/2023 Patient:?MARY JO ROBLES Paul :?MICHAEL OscarOB:1955???Age:67 Y ???Sex:FemaleDate:10/18/2023hone:[phone]:[address] [place], [id number]:Merrill Kaufman Subjective: * Chief Complaints: * 1 . Left knee pain recheck. * Medical History: Objective: * Vitals: Assessment: Plan: * Treatment: Forms: * Images: * Electronic signature of Jas Kelly DO on 02/07/2025 at 09:40 AM ESTSign off status: Pending * Provider: Jacey Kelly DO Date: 0 10/18/2023 Generated for Printing/Faxing/eTransmitting on:?02/07/2025 09:40 AM EST
--- OUTSIDE RECORDS SUMMARY | 2025-02-07 09:41 | XMS_ITS | Clinical Summary ---
Author Organization [facility] Address [address] [place] [address] Care Team Providers Care Director Fraud Name Role Phone Merrill Kaufman MD Primary Care Provider Allergies Active AllergyReactionsCriticalityNoted DateCommentsDicyclomineGI intolerance 05/01/2024 STOMACH PAINS FamotidineGI vaodaxmpvba46/10/2025 STOMACH PAINS HyoscyamineGI irctprkrylb11/10/2025 STOMACH ACHES UzqzyhojnmbcOahid52/14/2024 Severe muscle aches Nsaids (Non-Steroidal Anti-Inflammatory Drug)GI wtvsniaqngd62/14/2024 Metoclopramide VvxJplhg65/10/2025 INSOMNIA, CHEST DISCOMFORT SucralfateGI ggrmxafhgwi12/14/2024 Medications MedicationSigDispense QuantityRefillsLast FilledStart DateEnd DateStatus hyoscyamine 0.125 mg disintegrating tablet DISSOLVE ON THE TONGUE 1-2 TABLETS BY MOUTH EVERY 4 HOURS NEEDEDActive ondansetron ODT (Zofran-ODT) 4 mg disintegrating tablet Take 4 mg by mouth every 8 (eight) hours if needed.Active pantoprazole (ProtoNix) 40 mg EC tablet take 1 tablet by mouth twice daily for 30 daysActive RABEprazole (Aciphex) 20 mg EC tablet Take 1 tablet by mouth in the morning.5Active aspirin 81 mg EC tablet Take 81 mg by mouth in the morning.Active docusate sodium (Colace) 100 mg capsule Take 1 capsule by mouth in the morning.12/14/2023ctive polyethylene glycol (Glycolax) oral powder Take 17 g by mouth if needed.Active Social History Tobacco UseTypesPacks/DayYears UsedDateSmoking Tobacco: NeverSmokeless Tobacco: Never Tobacco Cessation:Counseling Given: Not Answered Alcohol UseStandard Drinks/WeekCommentsNever0 (1 standard drink = 0.6 oz pure alcohol)CommentsNoSex and Gender InformationValueDate RecordedSex Assigned at BirthNot on fileLegal YatQovaxh33/20/2025 7:50 AM ESTGender Identity Not on fileSexual OrientationNot on file Last Filed Vital Signs Vital SignReadingTime TakenCommentsBlood Oimdwtxt404/72005/10/2024 9:27 AM EDT Mulzx022705/10/2024 9:27 AM TXLAnetlbsjtrg70.1 ??C (97 ??F)05/10/2024 9:27 AM EDT Respiratory Czqc810505/10/2024 9:27 AM EDTOxygen Ywuizinjxm211%05/10/2024 9:27 AM EDTInhaled Oxygen Concentration--Blibey99.6 kg (151 lb 3.8 oz)05/10/2024 7:21 AM YEMDlgghb190.9 cm (5' 1 )05/10/2024 7:21 AM EDTBody Mass Index28.58005/10/2024 7:21 AM EDT Plan of Treatment Health MaintenanceDue DateLast DoneCommentsCT Fjacrvqdlhnm59/30/1954Colonoscopy 4Colorectal Cancer Rvkgjbsfc24/30/1954FIT-DNA1953FIT1955 FOBT1955Medicare Annual Wellness (AWV)12/21/19538364Yqoroftebyzey24/30/1954 Depression Isjvxrvld51/30/1966Adult Pcgbpmh3912/22/1975Pneumococcal Vaccine: 50+ Years (1 of 1 - PCV)12/22/2003Zoster Vaccines (1 of 2)12/22/2003Mammogram Fall Risk Ziqzybmcn57/30/2019COVID-19 Vaccine (3 - season), 09/24/2020Influenza Vaccine (#1)2024 03/10/2024, 01/07/2018HIB VaccinesAged OutNo longer eligible based on patient's age to complete this topicHPV VaccinesAged OutNo longer eligible based on patient's age to complete this topicIPV VaccinesAged OutNo longer eligible based on patient's age to complete this topicMeningococcal B VaccineAged OutNo longer eligible based on patient's age to complete this topicMeningococcal VaccineAged OutNo longer eligible based on patient's age to complete this topicRotavirus VaccinesAged OutNo longer eligible based on patient's age to complete this topic Insurance Care Teams Team MemberRelationshipSpecialtyStart DateEnd Merrill Kaufman MD [address] [facility] [address] [place] [address] [facility] - General05/10/24
--- OUTSIDE RECORDS SUMMARY | 2025-02-07 09:41 | XMS_ITS | Clinical Summary ---
Author Organization [employer] tem Address [id number] [address] [place] [address] Care Team Providers Care Land Surveyor Manager Name Role Phone Kalee Burden DO, Charles L Primary Care Provider Family History Medical HistoryRelationNameCommentsBreast cancerNeg Hx Social History Tobacco UseTypesPacks/DayYears UsedDateSmoking Tobacco: Never AssessedChildcare AnswerDate RhcbglktYyswdxxvhJqpsevv89/12/2019EmploymentAnswerDate Recorded GqgzsikhmmViijgwg29/12/2019Purpose - LifeAnswerDate RecordedPurpose and direction in zmfaMwdrezu81/11/2021CommentsUnknownSex and Gender InformationValueDate RecordedSex Assigned at BirthNot on fileLegal SexFemale 09/27/2014 11:29 AM EDTGender IdentityNot on fileSexual OrientationNot on file Plan of Treatment Not on file Medical Devices Not on file Insurance Care Teams Team MemberRelationshipSpecialtyStart DateEnd Date Wes Granda Jr., DO [facility] [place] [address] PCP - GeneralInternal Medicine09/23/16
--- OUTSIDE RECORDS SUMMARY | 2025-02-07 09:41 | XMS_ITS | Patient Health Record ---
Author Organization [facility] [place] Address [address] [place] [address] Care Team Providers Care Lead Recreation Assistant Name Role Phone Stanton Kaufman Primary Care Provider Allergies Allergen (clinical drug ingredient) Drug/Non Drug Allergy documented on EMR Reaction Allergy Type Onset Date Status Levaquinsevere muscle achesDrug AllergyActiveNon-steroidal anti-inflammatory agent (FN)NSAIDsGI INTOLERANCEDrug AllergyActivesucralfateSucralfateGI intoleranceDrug AllergyActive Results Component Value Reference Range Notes UA DIP NONAUTO WO MICRO (810 02) - IN OFFICE Reviewed date:07/26/2024 09:09:48 PM Interpretation: Performing Lab: Notes/Report: COLOR yellow CLARITYcloudyGLUCOSEnBILIRUBINnKETONEsmallSPECIFIC GRAVITY1.015BLOOD+++PH5 BENZICG15+UROBILINOGENnNITRITE+LEUKOCYTE ESTERASE++UA (Urinalysis, Dipstix only - w/o micro) Reviewed date:06/14/2024 11:40:26 AM Interpretation: Performing Lab: Notes/Report: COLORyellowYellow - Ellie -CLARITYclearClear - ClearGLUCOSE-0 - 133 MG/DLALBUMIN -NEG - NEG MG/DLBILIRUBIN-NEG - NEG MG/DLSPECIFIC GRAVITY1.0201.001 - 1.035 KETONES-NEG - NEG MG/DLBLOOD, UR-PH, UR55 - 9UROBILNOGEN-0.2 - 1 MG/DLNITRITE- NEG - NEGESTERASE (FERNANDA)-NEG - NEG MG/DLUS abdomen complete Reviewed date:04/16/2024 08:37:05 AM Interpretation: Performing Lab: Notes/Report: Source Facility: [place] [address] Ultrasound Report Signed Patient: SHANIQUE CAMARGO MR#: [id number] : 1955 Acct:[id number] Age/Sex: 68 / F ADM Date: 02/11/24 Loc: US Attending Dr: Katelyn Kaufman M.D. Ordering Physician: Katelyn Kaufman M.D. Date of Service: 02/11/24 Procedure(s): US abdomen complete Accession Number(s): [id number] cc: Katelyn Kaufman M.D. [place] [address] Patient Name: SHANIQUE CAMARGO MRN: [facility]:[id number] date: 1955 Sex: F Assigned Patient Location: US Current Patient Location: LAB Accession/Order Number: [id number] Exam Date: 02/11/2024 07:30 Report Date: 02/11/2024 [...] Signed By: 04/13/24 1228 DD/ 1052 TD/TT: Director Of Oncology:CBC AUTO DIFF Reviewed date:03/06/2024 01:15:20 PM Interpretation: Performing Lab: Notes/Report: [facility] ,White Blood Count8.54.0-11.0 10 3/uLRed Blood Count4.554.20-5.40 10 6/uL Vanohzotty36.712.0-16.0 g/zDKhcjkffgbd43.536.0-48.0 %Mean Corpuscular Eksscp83.4 81.0-99.0 fLMean Corpuscular Xutyyndlkn67.126.7-34.0 pgMean Corpuscular HGB Conc 32.229.9-35.2 g/dLRed Cell Distribution Width12.311.0-15.0 %Platelet Yzeci189 150-450 10 3/uLMean Platelet Khwnhm49.79.5-13.5 fLNeutrophils Percent Auto61.7 43.0-75.0 %Lymphocytes Percent Auto27.620.5-60.0 %Monocytes Percent Auto9.11.7- 12.0 %Eosinophils Percent Auto0.90.9-7.0 %Basophils Percent Auto0.50.2-2.0 % Immature Granulocytes Pct Auto0.20.0-0.5 %Neutrophils Absolute Auto5.21.4-6.5 10 3/uLLymphocytes Absolute Auto2.31.2-3.8 10 3/uLMonocytes Absolute Auto0.80.3-0.8 10 3/uLEosinophils Absolute Auto0.10.0-0.7 10 3/uLBasophils Absolute Auto0.00.0- 0.1 10 3/uLImmature Granulocytes Abs Auto0.020.00-0.03 10 3/uLPerforming Lab:see noteML - [facility] LBCBC AUTO DIFF Reviewed date:08/29/2024 06:58:57 PM Interpretation: Performing Lab: Notes/Report: [facility] ,White Blood Count5.84.0-11.0 10 3/uLRed Blood Count4.874.20-5.40 10 6/uL Xwppmpfnuf42.512.0-16.0 g/cXVyrrnbhdiq48.036.0-48.0 %Mean Corpuscular Zxjwwr43.4 81.0-99.0 fLMean Corpuscular Lsljohfzkv08.826.7-34.0 pgMean Corpuscular HGB Conc 32.229.9-35.2 g/dLRed Cell Distribution Width12.811.0-15.0 %Platelet Rwiit940 150-450 10 3/uLMean Platelet Mburrk98.99.5-13.5 fLNeutrophils Percent Auto46.7 43.0-75.0 %Lymphocytes Percent Auto37.520.5-60.0 %Monocytes Percent Auto10.21.7- 12.0 %Eosinophils Percent Auto4.70.9-7.0 %Basophils Percent Auto0.70.2-2.0 % Immature Granulocytes Pct Auto0.20.0-0.5 %Neutrophils Absolute Auto2.71.4-6.5 10 3/uLLymphocytes Absolute Auto2.21.2-3.8 10 3/uLMonocytes Absolute Auto0.60.3-0.8 10 3/uLEosinophils Absolute Auto0.30.0-0.7 10 3/uLBasophils Absolute Auto0.00.0- 0.1 10 3/uLImmature Granulocytes Abs Auto0.010.00-0.03 10 3/uLPerforming Lab:see noteML - [facility] LBXR KNEE RT 3V Reviewed date:08/10/2024 06:48:32 PM Interpretation: Performing Lab: Notes/Report: Source Facility: [facility]-[address] [place] [address] [place] [address] XRay Report Signed Patient: SHANIQUE CAMARGO MR#: [id number] : 1955 Acct:[id number] Age/Sex: 68 / F ADM Date: 08/10/24 Loc: ER Attending Dr: Ordering Physician: Nikki Paulino Date of Service: 08/10/24 Procedure(s): XR knee RT 3V Accession Number(s): [id number] cc: Katelyn Kaufman M.D.; Nikki Paulino [place] [address] Patient Name: SHANIQUE CAMARGO MRN: [facility] [employer] [employer] [employer]:[id number] date: 1955 Sex: F Assigned Patient Location: ER Current Patient Location: ER Accession/Order Number: [id number] Exam Date: 08/10/2024 08:06 Report Date: 08/10/2024 [...] Mckoy M.D. 08/10/2024 8:08 AM Dictation Location: [place] [address] Electronically authenticated by: [id number] Y Date: 08/10/2024 08:08 Dictated By: Xiomara Mckoy M.D. Signed By: 08/10/24 0811 DD/ 0808 TD/TT: Director Of Oncology:PROF Pabon(COMP METB) Reviewed date:03/06/2024 01:15:20 PM Interpretation: Performing Lab: Notes/Report: [facility] ,Lzbrgi502913-755 mmol/LPotassium4.23.5-5.1 mmol/ORgneijrh30323-371 mmol/LCarbon Tkpkalw77.321.0-32.0 mmol/LAnion Gap9.1Pjwqfpn2969-619 mg/dLBlood Urea Nitrogen 15.07.0-18.0 mg/dLCreatinine0.680.55-1.02 mg/dLEstimated GFR ( Shireen>60 >=60 mL/min/1.73m 2Estimated GFR (Non- Isela>60>=60 mL/min/1.73m 2BUN Creatinine Ratio22.0Mpsvzwq4.38.5-10.1 mg/dLBilirubin Total0.20.2-1.0 mg/dL Aspartate Amino Svqwdpnhfnh0825-10 U/LAlanine Vjzroeozjxwghxdn5732-84 U/L Alkaline Tzrqncxpapv0879-395 U/LTotal Protein7.06.4-8.2 g/dLAlbumin Level3.73.4- 5.0 g/dLGlobulin3.3Albumin Globulin Ratio1.1Performing Lab:see noteML - [facility] hepatobiliary wo pharm Reviewed date:03/01/2024 06:55:03 PM Interpretation: Performing Lab: Notes/Report: Source Facility: [place] [address] Nuclear Medicine Report Signed Patient: SHANIQUE CAMARGO MR#: [id number] : 1955 Acct:[id number] Age/Sex: 68 / F ADM Date: 03/01/24 Loc: [place] Attending Dr: Katelyn Kaufman M.D. Ordering Physician: Katelyn Kaufman M.D. Date of Service: 03/01/24 Procedure(s): LA hepatobiliary wo pharm Accession Number(s): [id number] cc: Katelyn Kaufman M.D. [place] [address] Patient Name: SHANIQUE CAMARGO MRN: [facility]:[id number] date: 1955 Sex: F Assigned Patient Location: [place] Current Patient Location: [place] Accession/Order Number: [id number] Exam Date: 03/01/2024 06:40 Report Date: 03/01/2024 09:55 At the request of: KATELYN KAUFMAN Procedure: LA hepatobiliary wo pharm EXAMINATION: LA hepatobiliary wo pharm HISTORY: ABDOMINAL PAIN COMPARISON: [...] of common biliary ductal obstruction. OTHER: Negative. NM/NM hepatobiliary wo pharm IMPRESSION: No evidence of a biliary leak Electronically authenticated by: EDMOND CAAL Date: 03/01/2024 09:55 Dictated By: Edmond Caal M.D. Signed By: 03/01/2458 DD/ 4 TD/TT: Director Of Oncology:MR angio abdomen wo con Reviewed date:04/26/2024 09:04:53 PM Interpretation: Performing Lab: Notes/Report: Source Facility: [place] [address] Magnetic Resonance Report Signed Patient: SHANIQUE CAMARGO MR#: [id number] : 1955 Acct:[id number] Age/Sex: 68 / F ADM Date: 04/26/24 Loc: MRI Attending Dr: Katelyn Kaufman M.D. Ordering Physician: Katelyn Kaufman M.D. Date of Service: 04/26/24 Procedure(s): MR angio abdomen wo con Accession Number(s): [id number] cc: Katelyn Kaufman M.D. [place] [address] Patient Name: SHANIQUE CAMARGO MRN: [id number] date: 1955 Sex: F Assigned Patient Location: MRI Current Patient Location: MRI Accession/Order Number: [id number] Exam Date: 04/26/2024 15:43 Report Date: 04/26/2024 15:50 At the request of: KATELYN KAUFMAN MD Procedure: MR angio abdomen wo con MRA of the abdomen without IV contrast. Reason for exam: Chronic abdominal pain COMPARISON: CT abdomen and pelvis 01/07/2024. TECHNIQUE: Multisequence, multiplanar imaging of the abdomen was obtained. Additional uyrg-cp-jbllyw imaging of the aorta and its major [...] Glasgow Jr., D.OArpita04/26/2024 3:50 PM Dictation Location: [place] [address] Electronically authenticated by: [id number] Y Date: 04/26/2024 15:50 Dictated By: Yordy Glasgow M.D. Signed By: 04/26/24 1552 DD/ 1550 TD/TT: Director Of Oncology:LIPASE Reviewed date:03/06/2024 01:15:20 PM Interpretation: Performing Lab: Notes/Report: [facility] ,Smroqb87.016.0-77.0 U/LPerforming Lab:see noteML - [facility] LB AMYLASE Reviewed date:03/06/2024 01:15:20 PM Interpretation: Performing Lab: Notes/Report: [facility] ,Yctmuzc6562-631 U/LPerforming Lab:see noteML - [facility] LBOccult Blood* Reviewed date:08/30/2024 06:21:32 PM Interpretation: Performing Lab: Notes/Report: [facility] ,Occult BloodNegativePerforming Lab:see noteML - [facility] LBTSH Reviewed date:08/29/2024 06:58:57 PM Interpretation: Performing Lab: Notes/Report: [facility] ,Thyroid Stimulating Hormone1.1170.358-3.740 uIU/mLPerforming Lab:see note - [facility] LBT4 Reviewed date:08/29/2024 06:58:57 PM Interpretation: Performing Lab: Notes/Report: [facility] ,T4 Thyroxine6.504.80-13.90 ug/dLPerforming Lab:see noteML - [facility] LBPROF 14(COMP METB) Reviewed date:08/29/2024 06:58:57 PM Interpretation: Performing Lab: Notes/Report: [facility] ,Djlaku466967-144 mmol/LPotassium4.63.5-5.1 mmol/UZqvrkwpg56096-963 mmol/LCarbon Iznbaku76.621.0-32.0 mmol/LAnion Gap11.7Tqxcvob9974-962 mg/dLBlood Urea Nitrogen 20.07.0-18.0 mg/dLCreatinine0.620.55-1.02 mg/dLEstimated GFR ( Shireen>60 >=60 mL/min/1.73m 2Estimated GFR (Non- Isela>60>=60 mL/min/1.73m 2BUN Creatinine Ratio32.7Imtxklg9.88.5-10.1 mg/dLBilirubin Total0.30.2-1.0 mg/dL Aspartate Amino Mlcjodosidt1100-35 U/LAlanine Clkxovlxvbtluikt8480-00 U/L Alkaline Mqkmpntvceb2560-389 U/LTotal Protein7.36.4-8.2 g/dLAlbumin Level3.73.4- 5.0 g/dLGlobulin3.6Albumin Globulin Ratio1.0Performing Lab:see noteML - [facility] LBLIPID PROFILE Reviewed date:08/29/2024 06:58:57 PM Interpretation: Performing Lab: Notes/Report: [facility] ,Caufusvkdyxpo06<=150 mg/bOZzdggogzswx427<=200 mg/dLHDL Vfpxxhkqaem9080-21 mg/dL <40 mg/dl - HIGH CARDIOVASCULAR RISK > or =60 mg/dl - LOW CARDIOVASCULAR RISK LDL Cholesterol Yiyfqehyay816.0 160-189 mg/dl HIGH <100 mg/dl OPTIMAL 100-129 mg/dl NEAR OR ABOVE OPTIMAL 130-159 mg/dl BORDERLINE HIGH >190 mg/dl VERY HIGH VLDL CHOLESTEROL8.4Chol HDL Ratio2.3 4.4 - 7.1 AVERAGE RISK >11.0 HIGH RISK 3.3 - 4.4 LOW RISK 7.1 - 11.0 MODERATE RISK Performing Lab:see noteML - [facility] LBFREE T3 Reviewed date:08/29/2024 06:58:57 PM Interpretation: Performing Lab: Notes/Report: [facility] Rizwan T32.852.18-3.98 pg/mLPerforming Lab:see noteML - [facility] LB XR shoulder RT min 2V Reviewed date:07/26/2024 09:09:48 PM Interpretation: Performing Lab: Notes/Report: Source Facility: [place] [address] XRay Report Signed Patient: SHANIQUE CAMARGO MR#: [id number] : 1955 Acct:[id number] Age/Sex: 68 / F ADM Date: 07/25/24 Loc: RAD Attending Dr: Katelyn Kaufman M.D. Ordering Physician: Katelyn Kaufman M.D. Date of Service: 07/25/24 Procedure(s): XR shoulder RT min 2V Accession Number(s): [id number] cc: Katelyn Kaufman M.D. [place] [address] Patient Name: SHANIQUE CAMARGO MRN: [id number] date: 1955 Sex: F Assigned Patient Location: [facility] Current Patient Location: [facility] Accession/Order Number: [id number] Exam Date: 07/25/2024 17:31 Report Date: 07/25/2024 [...] IMPRESSION: No acute findings. Impression dictated by: Terrence Dhillon M.D. 07/25/2024 5:31 PM Dictation Location: [place] [address] Electronically authenticated by: [id number] Y Date: 07/25/2024 17:31 Dictated By: Terrence Dhillon D.O. Signed By: 07/25/24 1734 DD/ 173 TD/TT: Director Of Oncology:GLYCOHEMOGLOBIN A1C Reviewed date:08/29/2024 06:58:57 PM Interpretation: Performing Lab: Notes/Report: [facility] ,Glycohemoglobin A1C5.54.5-6.2 % ACTION SUGGESTED ADA RECOMMENDED LIMIT 4.0 - 6.0 > 7.0 ADA THERAPEUTIC TARGET < 7.0 Estimated Average Kqstwsv424Zzrsywyspd Lab:see noteML - [facility] LB Reason For Referral Diagnosis 1 Upper abdominal pain (R10.10) Referral Organization [facility] Referring Provider First Name Stanton Referring Provider Last Name [facility] Referring Provider [facility] Referred Provider Jovan Bolden Referred Provider Specialty General Surg zulema Referral Priority Routine Diagnosis 1 Abdominal pain (R10. 9) Diagnosis 2 GERD (gastroesophage al reflux disease) (K21.9) Diagnosis 3 Abnormal gall bladde r diagnostic imaging (R93.2) Referral Organization [facility] Referring Provider First Name Stanton Referring Provider Last Name [facility] Referring Provider [facility] Referred Provider Josseline Diggs Referred Provider Specialty Gastroentero logy Referral Priority Routine Diagnosis 1 Intestinal angina (K 55.1) Referral Organization [facility] Referring Provider First Name Stanton Referring Provider Last Name [facility] Referring Provider [facility] Referred Provider Specialty Gastroentero logy Referral Priority Routine Diagnosis 1 Bile duct leak (K83. 8) Referral Organization [facility] Referring Provider First Name Stanton Referring Provider Last Name [facility] Referring Provider [facility] Referred Provider Fawad Mcintosh Referred Provider Specialty Gastroentero logy Referral Priority Routine Medications Medication SIG (Take, Route, Frequency, Duration) Notes Start Date End Date Status predniSONE 20 MG 2 tablets Orally Once a day; Du ration: 5 days 5ActiveRABEprazole Sodium 20 MG1 tablet after a meal Orally Once a day; Duration: 30 days5Active Immunizations Vaccine Route Administration Date Status Comme [...] alcohol in the p ast year? No Nigasf9OduopxjovtzvqcOiqtumyzTJZKP-E (Standard) Question Answer Notes Did you have a drink containing alcohol in the p ast year? No Axvfyf4MjbagmwbnbkexnQzhyhofq Problems Problem Type SNOMED Code ICD Code Onset Dates Problem Status W/U Status Risk Notes Problem Age-related osteoporosis (050086 002) Age-related osteoporosis without current pathological fracture (M81.0) ActiveconfirmedProblemAbdominal pain (13420327)Abdominal pain (R10.9)Active confirmedProblemGastroesophageal reflux disease (437607759)GERD (gastroesophageal reflux disease) (K21.9)ActiveconfirmedProblemEpigastric pain (74699856)Epigastric abdominal pain (R10.13)ActiveconfirmedProblemOsteoarthritis of knee (303590075)Knee osteoarthritis (M17.9)ActiveconfirmedProblemDiverticular disease of colon (445332679)Diverticulosis (K57.90)ActiveconfirmedProblemAcute sinusitis (55957997)Acute sinusitis (J01.90)ActiveconfirmedProblemAcute bronchitis (99073613)Acute bronchitis (J20.9)ActiveconfirmedProblemPain of left knee region (finding) (375960485280906)Knee pain, left (M25.562)Activeconfirmed ProblemSciatica (49038958)Sciatic leg pain (M54.30)ActiveconfirmedProblemTubular adenoma (933771452)Tubular adenoma (D36.9)ActiveconfirmedProblemUpper abdominal pain (00554727)Upper abdominal pain (R10.10)ActiveconfirmedProblemIntestinal angina (003120516)Intestinal angina (K55.1)ActiveconfirmedProblemBile duct leakage (disorder) (015620935)Bile duct leak (K83.8)ActiveconfirmedProblem Osteoarthritis of knee (690300979)Knee osteoarthritis (M17.10)Activeconfirmed Vital Signs Temperature 98.2 degrees Fahrenheit 06/02/2024 Blood pressure lbyjsyqpm09 mm Hg02/07/20256157Mjcdps84 in02/07/2025lood pressure mm Hg02/07/20257244Ownbpu712.2 lbs104/10/2024BMI28.94 kg/m202/07/2025 Procedures Procedure Date Ordered Date Performed Result Body Sit e Colonoscopy 03/29/2024 Normal Encounters Encounter Location Date Provider Diagnosis [place] [address] [place] [address] 08/18/2024 Stanton Hoy Knee osteoarthritis M17.[address] [address] 04/20/2024 Stanton Hoy GERD (gastroesophage al reflux disease) K21.9 and Intestinal angina K55.[address] [address] 06/02/2024 Stanton Hoy Burning with urinati on R30.0 ; UTI (urinary tract infection), uncomplicated N39.0 and Dysuria R30.0 [place] [address] [place] [address] 04/05/2024 Stanton Hoy Acute non-recurrent sinusitis, unspecified location J01.90 and Nasal congestion R09.[address] [address] 02/07/2025 Stanton Hoy Knee pain, left M25. 562 and Gastritis K29.[address] [address] 02/28/2024 Stanton Hoy Abdominal pain R10.[address] [address] 07/24/2024 Stanton Hoy Shoulder impingement M25.819 and Impingement of right shoulder M25.[address] [address] 06/14/2024 Stanton Hoy UTI (urinary tract infection) N39.[address] [address] 08/23/2024 Stanton Hoy Encounter for Medica re annual wellness exam Z00.00 [facility] [address] [place] [address] 03/06/2024 Stanton Kaufman Epigastric abdominal pain R10.13 [facility] [address] [place] [address] 02/10/2024 Stanton Hoy [facility] [place] [address] 02/11/2024oug [facility]Upper [facility] [place] [address]/23/2024oug HoyAbdominal pain R10.9 and GERD (gastroesophageal reflux disease) K21.9[facility] [address] [place] [address]/07/2024[facility] [facility] [place] [address]/09/2024[facility] [place] [address] 03/01/2024[facility] [place] [address]/11/2024[facility] [place] [address]/[facility] [facility] [place] [address]/[facility] [place] [address]/[facility] [place] [address] Stanton HoyIntestinal angina K55.1 ; Upper abdominal pain R10.10 and Bile duct leak K83.8[facility] [facility] [address] [place] [address] 04/26/2024[facility] [facility] [place] [address]/[facility] [facility] [place] [address]/05/2024[facility] [facility] [place] [address]/09/2024[facility] [place] [facility] [address]/[facility] [place] [address]/ Stanton Kaufman Assessments Encounter Date Diagnosis (ICD Code) Assessment Notes Treatment Notes Treatment Clinical Notes Section Notes 04/20/2024 GERD (gastroesophageal reflux di sease) (ICD-10 - K21.9) 04/20/2024Intestinal angina (ICD-10 - K55.1)5Burning with urination (ICD-10 - R30.0)5Abdominal pain (ICD-10 - R10.9)03/06/2024Epigastric abdominal pain (ICD-10 - R10.13)5Acute non-recurrent sinusitis, unspecified location (ICD-10 - J01.90)Rest and drink more liquids, especially water. You may use a humidifier or vaporizer to help keep the drainage moist. Nmyw-buf-kzxaqdh Nasal Saline may help the stuffy and runny nose. Use Ibuprofen and or Tylenol as needed for fever, chills, body aches or pain. Children 5 years old should not be given tsrd-obt-xxydytq cough and cold medications such as guaifenesin and dextromethorphan. If you're over age 5, you may try bjxz-lft-lmuohbs cold medications such as guaifenesin and dextromethorphan, or multi-symptom cold reliever such as Dayquil to help reduce the symptoms. Antibiotics have been prescribed. You should take these until completed and follow the directions. Antibiotics can sometimescause upset stomach, and in rare cases, serious allergic reactions or serious gastrointestinal problems. If you start having severe abdominal pain, severe vomiting, or bloody diarrhea, you should be reevaluated by your physician or urgent care immediately. Follow up with your Primary Care Provider or return to clinic if symptoms do not improve within 3-5 days06/14/2024UTI (urinary tract infection) (ICD-10 - N39.0) 07/24/2024Shoulder impingement (ICD-10 - M25.819)07/24/2024Impingement of right shoulder (ICD-10 - M25.811)08/23/2024[facility] annual wellness exam (ICD-10 - Z00.00)patient presents to the office for a subsequent medicare wellness appointment. a depression screening/anxiety screening/ safety screening was completed without concerns, SLUMS memory test was completed and the patient scored a 30/30, vision test was completed and the patient scored 20/20, patient was happy a pleasant, vaccines were up to date and the patient was due for yearly labs which were bajxfer6308/18/2024Knee osteoarthritis (ICD-10 - M17.9) 02/07/2025Knee pain, left (ICD-10 - M25.562)02/07/2025Gastritis (ICD-10 - K29.70)trial double dose - if not heloing caling back02/11/2024Upper abdominal pain (ICD-10 - R10.10)02/14/2024bdominal pain (ICD-10 - R10.9)02/14/2024GERD (gastroesophageal reflux disease) (ICD-10 - K21.9)04/20/2024Intestinal angina (ICD-10 - K55.1)04/20/2024Upper abdominal pain (ICD-10 - R10.10)5Bile duct leak (ICD-10 - K83.8)04/05/2024Nasal congestion (ICD-10 - R09.81)06/02/2024 UTI (urinary tract infection), uncomplicated (ICD-10 - N39.0)Drink plenty of water. Avoid drinks like coffee, alcohol and soft frinks, as these can irritate your bladder and aggravate your frequent or urgent need to urinate. Apply a warm heating pad to your abdomen to minimize bladder pressure or discomfort. You have been prescribed antibiotics for a urinarytract infection. Antibiotics may bother your stomach, so try taking them with a light meal (unless instructed otherwise by your pharmacist). It is important to take them until they are finished. You c an use kbac-pop-wcovevl acetaminophen or ibuprofen if needed for pain. You should follow up with your Primary Care Physician or return to clinic if not improving in the next 3-5 days.06/02/2024Dysuria (ICD-10 - R30.0) Plan Of Treatment Pending Test Test Name Order Date CMP (COMPLETE METABOLIC PANEL) 3 CULTURE, STOOL 10/11/2023 HEMOGLOBIN A1C (GLYCO) 09/18/2022 IRON, TOTAL 09/18/2022 LIPID PANEL (CHOL/TRIG/HDL/LDL) 09/19/19 23 CBC WITH DIFF (EXP 12/2024) 09/18/2022 CBC WITH DIFF (EXP 12/2024) 03/06/2024 XR Chest PA and Lateral (Routine [...] 11/26/2023 XR DEXA BONE DENSITY 06/02/2023 XR KNEE LT 3V 02/07/2025 XR SHOULDER RT 2V or > 07/24/2024 XR TIB_FIB LT 2V 02/07/2025 THYROID PANEL (T4/TSH/FREE T3) 3 THYROID PANEL (T4/TSH/FREE T3) 5 Lipid Panel 08/23/2024 Vitamin D, 25-Hydroxy 06/23/2023 NUC MED Hida with Ejection Fraction * CMP (COMP MET MARTINEZ) w/eGFR CKD-EPI 2024 Insurance Providers Payer Name Payer Address Payer Phone Subscriber Number Group Number Insured Name Patient Relationship to Insured Coverage Start Date Coverage End Date [employer] [address] [address] [place] [phone] [id number] Shanique [place] Self - patient is the insured 4 Medical (General) History Medical History History ICD Code Arthritis M19.90 Inguinal hernia K40.90 Diverticular disease K57.90 Surgical History Surgery Date(Month/Year) EGD 11/24/2023 EGD 05/10/24 Colonoscopy, polyp x3- Dr Diggs 5 Hernia Repair gallbladder bysjhgx49/21/24Carpal Qwsnva9257Szmvhxbaavlbd7488Fcgrzetuowyj6989 Left Knee Ghixlpu74/20/16Right Knee Surgery11/12/15
--- OUTSIDE RECORDS SUMMARY | 2025-02-07 09:41 | XMS_ITS | Clinical Summary ---
Author Organization [facility] Address [address] [place] [address] Care Team Providers Care Inspector Final Assembly Conveyor Line Name Role Phone Merrill Kaufman MD Primary Care Provider [phone] Allergies Active AllergyReactionsCriticalityNoted LrqmXlxftyycLsokkfytbiyhKoeia41/14/2024 NsaidsGI nllfnijhwpq48/14/2024SucralfateGI /14/2024 Medications MedicationSigDispense QuantityRefillsLast FilledStart DateEnd DateStatus hyoscyamine (Anaspaz) 0.[address] 0.125 mg under the tongue every 4 (four) hours if kvwazl0911/29/2023ctive pantoprazole (ProtoNix) 40 MG EC tablet Take 40 mg by mouth DailyActive ondansetron ODT (Zofran-ODT) 4 MG disintegrating tablet Take 4 mg by mouth every 8 (eight) hours if needed for nauseaActive Social History Tobacco UseTypesPacks/DayYears UsedDateSmoking Tobacco: Never Assessed CommentsUnknownSex and Gender InformationValueDate RecordedSex Assigned at Not on fileLegal FafLnqpcs79/15/2023 6:57 PM EDTGender IdentityNot on fileSexual OrientationNot on file Last Filed Vital Signs Vital SignReadingTime TakenCommentsBlood Cjaltyfa968/7411 12:51 PM EST Ipbwg077612/27/2023 12:51 PM ESTTemperature--Respiratory Nzia533702/25/2023 12:51 PM ESTOxygen Qszroytqph48%12/27/2023 12:51 PM ESTInhaled Oxygen Concentration-- Dadsbf20.5 kg (151 lb)12/27/2023 12:51 PM TDSFmjlkd560.5 cm (5' 2 )12/27/2023 12:51 PM ESTBody Mass Index27.6212/27/2023 12:51 PM EST Plan of Treatment Not on file Insurance Care Teams Team MemberRelationshipSpecialtyStart DateEnd Date Merrill Kaufman MD PCP - GeneralFamily Xcxretev57/14/24
--- OUTSIDE RECORDS SUMMARY | 2025-02-07 09:41 | XMS_ITS | Patient Health Record ---
Author Organization [facility] Address [address] [place] [address] Care Team Providers Care Remote Sensing Specialist Name Role Phone Merrill Kaufman Primary Care Provider Jas Correa Unavailable [phone] Reason For Referral No Information Problems Problem Type SNOMED Code ICD Code Onset Dates Problem Status W/U Status Risk Notes Problem History of left knee replacement (2863808863989420) History of left knee replacement (Z96.652) ActiveconfirmedProblemSciatica (18063715)Sciatica (M54.30)Activeconfirmed Plan Of Treatment Pending Test Test Name Order Date PT/OT - Eval and Treat 08/16/2023 Insurance Providers Payer Name Payer Address Payer Phone Subscriber Number Group Number Insured Name Patient Relationship to Insured Coverage Start Date Coverage End Date [employer] [address] [address] [place] [id number] MARY JO ROBLES Self - patient is the insured
--- NOTE | 2025-02-07 10:05 | XR_ITS ---
The [address] [address] Patient Name: MARY JO ROBLES MRN: [id number] date: 1955 Sex: F Assigned Patient Location: [facility] Current Patient Location: [facility] Accession/Order Number: [id number] Exam Date: 02/07/2025 09:55 Report Date: 02/07/2025 10:22 At the request of: KATELYN YOON MD Procedure: XR knee LT 3V LEFT KNEE - 3 views COMPARISON: 08/02/2023 CLINICAL DATA: Chronic left knee pain worsening after walking down stairs and knee gave out. Previous hemiarthroplasty. AP, lateral and internal oblique views were obtained. There is osteopenia. There are postoperative changes of medial hemiknee arthroplasty. As visualized, the hardware appears intact and unchanged from the comparison. There is no acute fracture or dislocation. Minor marginal spurring is seen. There is no sizable knee effusion or developing soft tissue abnormalities. XR/XR knee LT 3V IMPRESSION: OSTEOPENIA AND MINOR DEGENERATIVE CHANGE. STABLE MEDIAL HEMIKNEE ARTHROPLASTY. Impression dictated by: Xiomara Mckoy M.D. 02/07/2025 10:22 AM Dictation Location: [facility] Electronically authenticated by: [id number] Y Date: 02/07/2025 10:22
--- NOTE | 2025-02-07 10:05 | XR_ITS ---
The [address] [address] Patient Name: MARY JO ROBLES MRN: [id number] date: 1955 Sex: F Assigned Patient Location: [facility] Current Patient Location: [facility] Accession/Order Number: [id number] Exam Date: 02/07/2025 09:55 Report Date: 02/07/2025 10:24 At the request of: KATELYN YOON MD Procedure: XR tibia fibula LT 2V LEFT TIBIA AND FIBULA - 2 views CLINICAL HISTORY: Left Knee Pain. Previous hemiknee arthroplasty. COMPARISON: Left knee 08/10/2023 AP and lateral views of the left tibia and fibula were obtained. There is osteopenia. Medial knee replacement is again noted. There is no significant interval change in appearance from the prior. There is no developing fracture, dislocation or bony destruction. There are no focal soft tissue abnormalities. XR/XR tibia fibula LT 2V IMPRESSION: NO ACUTE FINDINGS. Impression dictated by: Xiomara Mckoy M.D. 02/07/2025 10:24 AM Dictation Location: [employer] Electronically authenticated by: [id number] Y Date: 02/07/2025 10:24
== END 2025-02-07 09:35 | disposition home or self-care (01) ==
LOC: RAD 09:38
PROVIDERS: PCP Family Medicine; Visit Provider Family Medicine
DX: M25.562 Pain in left knee (principal); M85.88 Other specified disorders of bone density and structure, other site
CPT/HCPCS: 73562; 73590

== ENCOUNTER 2025-02-19 14:06 | Outpatient (OUT) | payer MEDICARE, SELFPAY ==
--- OUTSIDE RECORDS SUMMARY | 2023-10-18 08:40 | XMS_ITS ---
Author Organization [facility] Address [address] [place] [address] Care Team Providers Care Erp Project Manager Name Role Phone Merrill Kaufman Primary Care Provider Jas Correa Unavailable [phone] REASON FOR VISIT left knee pain recheck Encounters Encounter Location Date Provider Diagnosis [facility] Office [address] [facility] [place] [address] 10/18/2023 Jas Kelly Plan Of Treatment No Information Progress Notes * CYRILRUPERT MARY JO LDOB:[birth year] (69 yo F)Acc No.[id number]:10/18/2023 Patient:?MARY JO ROBLES Paul :?MICHAEL OscarOB:1955???Age:67 Y ???Sex:FemaleDate:10/18/2023hone:[phone]:[address] [place], [id number]:Merrill Kaufman Subjective: * Chief Complaints: * 1 . Left knee pain recheck. * Medical History: Objective: * Vitals: Assessment: Plan: * Treatment: Forms: * Images: * Electronic signature of Jas Kelly DO on 02/19/2025 at 02:13 PM ESTSign off status: Pending * Provider: Jacey Kelly DO Date: 0 10/18/2023 Generated for Printing/Faxing/eTransmitting on:?02/19/2025 02:13 PM EST
--- OUTSIDE RECORDS SUMMARY | 2025-02-07 03:45 | XMS_ITS ---
Author Organization The [facility] in [place] Address [address] [place] [address] Care Team Providers Care Insurance Claim Approver Name Role Phone Stanton Yoon Primary Care Provider Allergies Allergen (clinical drug ingredient) Drug/Non Drug Allergy documented on EMR Reaction Allergy Type Onset Date Status Levaquinsevere muscle achesDrug AllergyActiveNon-steroidal anti-inflammatory agent (FN)NSAIDsGI INTOLERANCEDrug AllergyActivesucralfateSucralfateGI intoleranceDrug AllergyActive Results Component Value Reference Range Notes XR KNEE LT 3V Reviewed date:02/07/2025 04:56:10 PM Interpretation: Performing Lab: Notes/Report: Source Facility: [place] [address] [place] [address] XRay Report Signed Patient: SHANIQUE CAMARGO MR#: [id number] : 1955 Acct:[id number] Age/Sex: 69 / F ADM Date: 02/07/25 Loc: RAD Attending Dr: Katelyn Yoon M.D. Ordering Physician: Katelyn Yoon M.D. Date of Service: 02/07/25 Procedure(s): XR knee LT 3V Accession Number(s): [id number] cc: Katelyn Yoon M.D. [place] [address] Patient Name: SHANIQUE CAMARGO MRN: [facility]:[id number] date: 1955 Sex: F Assigned Patient Location: [facility] Current Patient Location: [facility] Accession/Order Number: [id number] Exam Date: 02/07/2025 09:55 Report Date: 02/07/2025 10:22 At the request of: KATELYN YOON MD Procedure: XR knee LT 3V LEFT KNEE - 3 views COMPARISON: 08/02/2023 CLINICAL DATA: Chronic left knee pain worsening after walking down stairs and knee gave out. Previous hemiarthroplasty. AP, lateral and internal oblique views were obtained. There is osteopenia. There are postoperative changes of medial hemiknee arthroplasty. As visualized, the hardware appears intact and unchanged from the comparison. There is no acute fracture or dislocation. Minor marginal spurring is seen. There is no sizable knee effusion or developing soft tissue abnormalities. XR/XR knee LT 3V IMPRESSION: OSTEOPENIA AND MINOR DEGENERATIVE CHANGE. STABLE MEDIAL HEMIKNEE ARTHROPLASTY. Impression dictated by: Xiomara Mckoy M.D. 02/07/2025 10:22 AM Dictation Location: [employer] Electronically authenticated by: [id number] Y Date: 02/07/2025 10:22 Dictated By: Xiomara Mckoy M.D. 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: REASON FOR VISIT left knee pain- felt good after knee replacement- was going down stairs one day and hasn't felt right since- now going down the side of the leg into the calf area Medications Medication SIG (Take, Route, Frequency, Duration) Notes Start Date End Date Status predniSONE 20 MG 2 tablets Orally Once a day; Du ration: 5 days 5ActiveRABEprazole Sodium 20 MG1 tablet after a meal Orally Once a day; Duration: 30 days5Active Social History Tobacco Use: Social History Observation Description Date Details (start date - stop date) Never Smoker NA - NA Tobacco Use/Smoking Question Answer Notes Patient is a nonsmoker Problems Problem Type SNOMED Code ICD Code Onset Dates Problem Status W/U Status Risk Notes Problem Pain of left knee re stacia (finding) ([id number]) Knee pain, left (M25.562) Activeconfirmed Vital Signs Weight 153.2 lbs 02/07/2025 Height 61 in 02/07/2025 Blood pressure systolic 120 mm Hg 02/08/20 25 Blood pressure diastolic 84 mm Hg 025 BMI 28.94 kg/m2 02/07/2025 Encounters Encounter Location Date Provider Diagnosis [facility] [address] [place] [address] 02/07/2025 Stanton Yoon Knee pain, left M25.562 and Gastritis K29.70 Assessments Encounter Date Diagnosis (ICD Code) Assessment Notes Treatment Notes Treatment Clinical Notes Section Notes 02/07/2025 Knee pain, left (ICD-10 - M25.56 2) 02/07/2025Gastritis (ICD-10 - K29.70)trial double dose - if not heloing caling back Plan Of Treatment Medication Medication Name Sig Start Date Stop Date Notes predniSONE 20 MG 2 tablets Orally Once a day; Duration : 5 days 02/07/2025 Treatment Notes Assessment Notes Gastritis trial double dose - if not heloing caling back Pending Test Test Name Order Date XR TIB_FIB LT 2V 02/07/2025 Progress Notes * Shanique CAMARGO LDOB:[birth year] (69 yo F)Acc No.[id number]:02/07/2025 Progress Note Patient: Shanique DOLAN :?Katelyn Yoon ([facility]), MDDOB:1955???Age: 69 Y???Sex:FemaleDate:02/07/2025Phone:[phone]:[address] [place], [id number] In:08:32 AM ESTCheck Out:09:14 AM EST Subjective: * Chief Complaints: * L eft knee pain- felt good after knee replacement- was going down stairs one day and hasn't felt right since- now going down the side of the leg into the calf area * HPI: ???General:? Left knee - about 6 weeks ago felt twist inthe knee - not swelled - and is below the knee and into the ankle not really getting wors e- but not better. * Active Problem List J20.9 Acute bronchitis Modified On:01/28/2023U Status:kfetldkxhJ94.90Acute sinusitis Modified On:01/06/2023U Status:vlggsqasdM49.0Age-related osteoporosis without current pathological fracture Modified On:06/02/2023U Status:wrmostrfcE51.30Sciatic leg pain Modified On:07/08/2023U Status:zknfngymwT67.9Knee osteoarthritis Modified On:08/02/2023U Status:wxwseipkdH47.13Epigastric abdominal pain Modified On:09/09/2023U Status:awoexnuldU26.90Diverticulosis Modified On:09/28/2023U Status:kbcrvtzurC83.9GERD (gastroesophageal reflux disease) Modified On:10/29/2023U Status:cntcckywkV41.9Abdominal pain Modified On:11/26/2023U Status:fkhnzhwnyM19.10Upper abdominal pain Modified On:01/10/2024U Status:vyhchnemgP55.10Knee osteoarthritis Modified On:01/19/2024U Status:tvymswpayG81.9Tubular adenoma Modified On:04/04/2024U Status:nyrjpldydP44.1Intestinal angina Modified On:04/20/2024U Status:nbcovxyatR97.8Bile duct leak Modified On:04/21/2024U Status:gkdrreknnQ46.562Knee pain, left Modified On:02/07/2025U Status:confirmed * Medical History: * Surgical History: H ysterectomy 1989Tonsillectomy 1964Carpal Tunnel 2001Right Knee Surgery 11/12/15Left Knee Surgery 01/12/16Hernia Repair EGD 11/24/2023gallbladder removed 12/13/23Colonoscopy, polyp x3- Dr Diggs 03/2024EGD 05/10/24 * Hospitalization/Major Diagno stic Procedure: D enies Past Hospitalization * Family History: F ather: , COPD. M other: , COPD, colon cancer, diagnosed with Cancer, Hypertension. B uliseser(s): alive. S ister(s): alive, COPD. S on(s): alive. D aughter(s): alive. 3 brother(s) , 4 sister(s) - healthy. 1 son(s) , 2 daughter(s) - healthy. . * Social History: ???Tobacco Use:?Tobacco Use/Smoking?Patient is a?nonsmoker * Medications: T akingRABEprazole Sodium 20 MG Tablet Delayed Release 1 tablet after a meal Orally Once a day Taking RABEprazole Sodium 20 MG Tablet Delayed Release 1 tablet after a meal Orally Once a day DiscontinuedDoxycycline Hyclate 100 MG Capsule 1 capsule Orally twice a day Medication List reviewed and reconciled with the patientDiscontinued Doxycycline Hyclate 100 MG Capsule 1 capsule Orally twice a day Medication List reviewed and reconciled with the patient * Allergies: L evaquin: severe muscle aches - Side Effects - Criticality HighNSAIDs: GI INTOLERANCE - Allergy - Criticality HighSucralfate: GI intolerance - Allergy - Criticality Highno[Allergies Verified] Objective: * Vitals: W t:153.2lbs, Ht: 61 in, BP:120/84mm Hg, BMI:28.94Index, Ht-cm: 154.94 cm, Wt-k.49 kg. * Examination: ???Lower Extremities: ???Left lower leg with superior porton lateral? - + POP no laxithy int he joint. Assessment: * Assessment: 1.?Knee pain, left - M25.562 (Primary)???2.?Gastritis - K29.70?? Plan: * Treatment: Start predniSONE Tablet, 20 MG, 2 tablets, Orally, Once a day, 5 days, 10 Tablet.?Imaging: XR TIB_FIB LT 2V* place marker over arewa of t endnerness ?Imaging: XR KNEE LT 3V (Performed Date - 02/07/2025)2.?Gastritis? Notes: trial double dose - if not heloing caling back?? * Procedure Codes: * Preventive Medicine: ??Screenings/Counseling:?BMI ACTION PLAN?Above Normal BMI Follow-up?Dietary management education, guidance, and counseling * * Sign off status: CompletedVisit Status:?CHK (Check Out) true * Provider: Jacey Yoon ([facility])MD Date: 1 04/10/2024 Generated for Printing/Faxing/eTransmitting on:?02/19/2025 02:13 PM EST History and Physical Notes * HPI (History of Present Illness) CategorySub-CategoryDetailNotesCategory NotesGeneral Left knee - about 6 weeks ago felt twist inthe knee - not swelled - and is below the knee and into the ankle not really getting wors e- but not better Examination CategorySub-CategoryDetailNotesCategory NotesLower ExtremitiesLeft lower leg with superior porton lateral - + POP no laxithy int he joint
--- OUTSIDE RECORDS SUMMARY | 2025-02-19 14:13 | XMS_ITS | Patient Health Record ---
Author Organization [facility] Address [address] [place] [address] Care Team Providers Care Resourcing Advisor Name Role Phone Merrill Kaufman Primary Care Provider Jas Correa Unavailable [phone] Reason For Referral No Information Problems Problem Type SNOMED Code ICD Code Onset Dates Problem Status W/U Status Risk Notes Problem Sciatica (04866790) Sciatica (M54.30) ActiveconfirmedProblemHistory of left knee replacement (7754192157722254)History of left knee replacement (Z96.652)Activeconfirmed Plan Of Treatment Pending Test Test Name Order Date PT/OT - Eval and Treat 08/16/2023 Insurance Providers Payer Name Payer Address Payer Phone Subscriber Number Group Number Insured Name Patient Relationship to Insured Coverage Start Date Coverage End Date [employer] [address] [address] [place] [address] [id number] [address] ROBLES Self - patient is the insured
--- OUTSIDE RECORDS SUMMARY | 2025-02-19 14:14 | XMS_ITS | Clinical Summary ---
Author Organization Agent Partner tem Address [id number] [address] [place] [address] Care Team Providers Care Case Manager Specialist Name Role Phone Kalee Burden DO, Charles L Primary Care Provider Family History Medical HistoryRelationNameCommentsBreast cancerNeg Hx Social History Tobacco UseTypesPacks/DayYears UsedDateSmoking Tobacco: Never AssessedChildcare AnswerDate XcnbomdtHajfptyxkPpzvvul61/12/2019EmploymentAnswerDate Recorded PlxgcyukdzAankdwh45/12/2019Purpose - LifeAnswerDate RecordedPurpose and direction in wifoWipynwy34/11/2021CommentsUnknownSex and Gender InformationValueDate RecordedSex Assigned at BirthNot on fileLegal SexFemale 09/27/2014 11:29 AM EDTGender IdentityNot on fileSexual OrientationNot on file Plan of Treatment Not on file Medical Devices Not on file Insurance Care Teams Team MemberRelationshipSpecialtyStart DateEnd Date Wes Granda Jr., DO [facility] [place] [address] PCP - GeneralInternal Medicine09/23/16
--- OUTSIDE RECORDS SUMMARY | 2025-02-19 14:14 | XMS_ITS | Patient Health Record ---
Author Organization [facility] in [place] Address [address] [place] [address] Care Team Providers Care Contractor Buyer Name Role Phone Stanton Kaufman Primary Care Provider Allergies Allergen (clinical drug ingredient) Drug/Non Drug Allergy documented on EMR Reaction Allergy Type Onset Date Status Levaquinsevere muscle achesDrug AllergyActiveNon-steroidal anti-inflammatory agent (FN)NSAIDsGI INTOLERANCEDrug AllergyActivesucralfateSucralfateGI intoleranceDrug AllergyActive Results Component Value Reference Range Notes AMYLASE Reviewed date:03/06/2024 01:15:20 PM Interpretation: Performing Lab: Notes/Report: [facility] , Amylase 46 25-115 U/L Performing Lab:see note - [facility] LBLIPASE Reviewed date:03/06/2024 01:15:20 PM Interpretation: Performing Lab: Notes/Report: [facility] ,Ohhaoe67.016.0-77.0 U/LPerforming Lab:see note - [facility] LBMR angio abdomen wo con Reviewed date:04/26/2024 09:04:53 PM Interpretation: Performing Lab: Notes/Report: Source Facility: [facility] [place] [address] The [place] [id number] Magnetic Resonance Report Signed Patient: SHANIQUE CAMARGO MR#: [id number] : 1955 Acct:[id number] Age/Sex: 68 / F ADM Date: 04/26/24 Loc: MRI Attending Dr: Katelyn Kaufman M.D. Ordering Physician: Katelyn Kaufman M.D. Date of Service: 04/26/24 Procedure(s): MR angio abdomen wo con Accession Number(s): [id number] cc: Katelyn Kaufman M.D. [address] [address] Patient Name: SHANIQUE CAMARGO MRN: [facility]:[id number] date: 1955 Sex: F Assigned Patient Location: MRI Current Patient Location: MRI Accession/Order Number: [id number] Exam Date: 04/26/2024 15:43 Report Date: 04/26/2024 15:50 At the request of: KATELYN KAUFMAN MD Procedure: MR angio abdomen wo con MRA of the abdomen without IV contrast. Reason for exam: Chronic abdominal pain COMPARISON: CT abdomen and pelvis 01/07/2024. TECHNIQUE: Multisequence, multiplanar imaging of the abdomen was obtained. Additional suhn-qe-psyhpl imaging of the aorta and its major [...] Glasgow Jr., D.O.04/26/2024 3:50 PM Dictation Location: [place] [address] Electronically authenticated by: [id number] Y Date: 04/26/2024 15:50 Dictated By: Yordy Glasgow M.D. Signed By: 04/26/24 1552 DD/ 1550 TD/TT: Cook Specialty:LEDY COLLADO LT 3V Reviewed date:02/07/2025 04:56:10 PM Interpretation: Performing Lab: Notes/Report: Source Facility: [address] [address] XRay Report Signed Patient: SHANIQUE CAMARGO MR#: [id number] : 1955 Acct:[id number] Age/Sex: 69 / F ADM Date: 02/07/25 Loc: [facility] Attending Dr: Katelyn Kaufman M.D. Ordering Physician: Katelyn Kaufman M.D. Date of Service: 02/07/25 Procedure(s): XR knee LT 3V Accession Number(s): [id number] cc: Katelyn Kaufman M.D. [place] [address] Patient Name: SHANIQUE CAMARGO MRN: [id number] date: 1955 Sex: F Assigned Patient Location: [facility] Current Patient Location: [facility] Accession/Order Number: [id number] Exam Date: 02/07/2025 09:55 Report Date: 02/07/2025 10:22 At the request of: KATELYN KAUFMAN MD Procedure: XR knee LT 3V LEFT [...] Mckoy M.D. 02/07/2025 10:22 AM Dictation Location: [place] [address] Electronically authenticated by: [id number] Y Date: 02/07/2025 10:22 Dictated By: Xiomara Mckoy M.D. 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: Cook Specialty:MACARIO ZARATE DIFF Reviewed date:03/06/2024 01:15:20 PM Interpretation: Performing Lab: Notes/Report: [facility] ,White Blood Count8.54.0-11.0 10 3/uLRed Blood Count4.554.20-5.40 10 6/uL Akbzqklisj31.712.0-16.0 g/mEFzlyqjyuzb96.536.0-48.0 %Mean Corpuscular Fzduqs88.4 81.0-99.0 fLMean Corpuscular Ffwhpuahkt68.126.7-34.0 pgMean Corpuscular HGB Conc 32.229.9-35.2 g/dLRed Cell Distribution Width12.311.0-15.0 %Platelet Ohxun872 150-450 10 3/uLMean Platelet Tivtez37.79.5-13.5 fLNeutrophils Percent Auto61.7 43.0-75.0 %Lymphocytes Percent Auto27.620.5-60.0 %Monocytes Percent Auto9.11.7- 12.0 %Eosinophils Percent Auto0.90.9-7.0 %Basophils Percent Auto0.50.2-2.0 % Immature Granulocytes Pct Auto0.20.0-0.5 %Neutrophils Absolute Auto5.21.4-6.5 10 3/uLLymphocytes Absolute Auto2.31.2-3.8 10 3/uLMonocytes Absolute Auto0.80.3-0.8 10 3/uLEosinophils Absolute Auto0.10.0-0.7 10 3/uLBasophils Absolute Auto0.00.0- 0.1 10 3/uLImmature Granulocytes Abs Auto0.020.00-0.03 10 3/uLPerforming Lab:see noteML - [facility] LBCBC AUTO DIFF Reviewed date:08/29/2024 06:58:57 PM Interpretation: Performing Lab: Notes/Report: [facility] ,White Blood Count5.84.0-11.0 10 3/uLRed Blood Count4.874.20-5.40 10 6/uL Tzpcsjctbw26.512.0-16.0 g/fSUmmzzkiufx02.036.0-48.0 %Mean Corpuscular Ysgwwe60.4 81.0-99.0 fLMean Corpuscular Scodacasue49.826.7-34.0 pgMean Corpuscular HGB Conc 32.229.9-35.2 g/dLRed Cell Distribution Width12.811.0-15.0 %Platelet Tnybz225 150-450 10 3/uLMean Platelet Hqivhm90.99.5-13.5 fLNeutrophils Percent Auto46.7 43.0-75.0 %Lymphocytes Percent Auto37.520.5-60.0 %Monocytes Percent Auto10.21.7- 12.0 %Eosinophils Percent Auto4.70.9-7.0 %Basophils Percent Auto0.70.2-2.0 % Immature Granulocytes Pct Auto0.20.0-0.5 %Neutrophils Absolute Auto2.71.4-6.5 10 3/uLLymphocytes Absolute Auto2.21.2-3.8 10 3/uLMonocytes Absolute Auto0.60.3-0.8 10 3/uLEosinophils Absolute Auto0.30.0-0.7 10 3/uLBasophils Absolute Auto0.00.0- 0.1 10 3/uLImmature Granulocytes Abs Auto0.010.00-0.03 10 3/uLPerforming Lab:see noteML - [facility] LBXR tibia fibula LT 2V Reviewed date:02/07/2025 04:56:10 PM Interpretation: Performing Lab: Notes/Report: Source Facility: [facility] [place] [address] [place] [address] XRay Report Signed Patient: SHANIQUE CAMARGO MR#: [id number] : 1955 Acct:[id number] Age/Sex: 69 / F ADM Date: 02/07/25 Loc: RAD Attending Dr: Katelyn Kaufman M.D. Ordering Physician: Katelyn Kaufman M.D. Date of Service: 02/07/25 Procedure(s): XR tibia fibula LT 2V Accession Number(s): [id number] cc: Katelyn Kaufman M.D. [place] [address] Patient Name: SHANIQUE CAMARGO MRN: [id number] date: 1955 Sex: F Assigned Patient Location: [facility] Current Patient Location: [facility] Accession/Order Number: [id number] Exam Date: 02/07/2025 09:55 Report Date: 02/07/2025 10:24 At the request of: KATELYN KAUFMAN MD Procedure: XR tibia fibula LT 2V LEFT TIBIA AND FIBULA - 2 views CLINICAL HISTORY: Left Knee Pain. Previous hemiknee arthroplasty. COMPARISON: Left knee 08/10/2023 AP and lateral views of the left tibia and fibula were obtained. There is osteopenia. Medial knee replacement is again noted. There is no significant interval change in appearance from the prior. There is no developing fracture, dislocation or bony destruction. There are no focal soft tissue abnormalities. XR/XR tibia fibula LT 2V IMPRESSION: NO ACUTE FINDINGS. Impression dictated by: Xiomara Mckoy M.D. 02/07/2025 10:24 AM Dictation Location: [place] [address] Electronically authenticated by: [id number] Y Date: 02/07/2025 10:24 Dictated By: Xiomara Mckoy M.D. Signed By: 02/07/25 1027 DD/ 1024 TD/TT: Cook Specialty:Occult Blood* Reviewed date:08/30/2024 06:21:32 PM Interpretation: Performing Lab: Notes/Report: [facility] ,Occult BloodNegativePerforming Lab:see noteML - [facility] LBTSH Reviewed date:08/29/2024 06:58:57 PM Interpretation: Performing Lab: Notes/Report: [facility] ,Thyroid Stimulating Hormone1.1170.358-3.740 uIU/mLPerforming Lab:see noteML - [facility] LBT4 Reviewed date:08/29/2024 06:58:57 PM Interpretation: Performing Lab: Notes/Report: [facility] ,T4 Thyroxine6.504.80-13.90 ug/dLPerforming Lab:see noteML - [facility] LBPROF 14(COMP METB) Reviewed date:08/29/2024 06:58:57 PM Interpretation: Performing Lab: Notes/Report: [facility] ,Jvbxdp444993-252 mmol/LPotassium4.63.5-5.1 mmol/FIihpgxcw78219-307 mmol/LCarbon Wbsgjpg22.621.0-32.0 mmol/LAnion Gap11.1Triykim7613-361 mg/dLBlood Urea Nitrogen 20.07.0-18.0 mg/dLCreatinine0.620.55-1.02 mg/dLEstimated GFR ( Shireen>60 >=60 mL/min/1.73m 2Estimated GFR (Non- Isela>60>=60 mL/min/1.73m 2BUN Creatinine Ratio32.9Djmepms4.88.5-10.1 mg/dLBilirubin Total0.30.2-1.0 mg/dL Aspartate Amino Tspzkhtaema2994-36 U/LAlanine Otkcqqesmawttxlr0231-03 U/L Alkaline Jgzhyicbnac8888-271 U/LTotal Protein7.36.4-8.2 g/dLAlbumin Level3.73.4- 5.0 g/dLGlobulin3.6Albumin Globulin Ratio1.0Performing Lab:see noteML - [facility] LBLIPID PROFILE Reviewed date:08/29/2024 06:58:57 PM Interpretation: Performing Lab: Notes/Report: [facility] ,Bsuoxowgqhjnt96<=150 mg/kCWqsmthgqafa646<=200 mg/dLHDL Bchrhbvuzfy2981-48 mg/dL <40 mg/dl - HIGH CARDIOVASCULAR RISK > or =60 mg/dl - LOW CARDIOVASCULAR RISK LDL Cholesterol Bgjbxzjyvy385.0 160-189 mg/dl HIGH <100 mg/dl OPTIMAL 100-129 mg/dl NEAR OR ABOVE OPTIMAL 130-159 mg/dl BORDERLINE HIGH >190 mg/dl VERY HIGH VLDL CHOLESTEROL8.4Chol HDL Ratio2.3 4.4 - 7.1 AVERAGE RISK >11.0 HIGH RISK 3.3 - 4.4 LOW RISK 7.1 - 11.0 MODERATE RISK Performing Lab:see noteML - [facility] LBFREE T3 Reviewed date:08/29/2024 06:58:57 PM Interpretation: Performing Lab: Notes/Report: [facility] ,Free T32.852.18-3.98 pg/mLPerforming Lab:see noteML - [facility] LB XR KNEE RT 3V Reviewed date:08/10/2024 06:48:32 PM Interpretation: Performing Lab: Notes/Report: Source Facility: [facility] [place] [address] XRay Report Signed Patient: SHANIQUE CAMARGO MR#: [id number] : 1955 Acct:[id number] Age/Sex: 68 / F ADM Date: 08/10/24 Loc: ER Attending Dr: Ordering Physician: Nikki Paulino Date of Service: 08/10/24 Procedure(s): XR knee RT 3V Accession Number(s): [id number] cc: Katelyn Kaufman M.D.; Nikki Paulino [place] [address] Patient Name: SHANIQUE CAMARGO MRN: [id number] date: 1955 Sex: F Assigned Patient Location: ER Current Patient Location: ER Accession/Order Number: [id number] Exam Date: 08/10/2024 08:06 Report Date: 08/10/2024 [...] Mckoy M.D. 08/10/2024 8:08 AM Dictation Location: [place] [address] Electronically authenticated by: [id number] Y Date: 08/10/2024 08:08 Dictated By: Xiomara Mckoy M.D. Signed By: 08/10/24810 DD/ 0808 TD/TT: Cook Specialty:XR shoulder RT min 2V Reviewed date:07/26/2024 09:09:48 PM Interpretation: Performing Lab: Notes/Report: Source Facility: [address] [address] XRay Report Signed Patient: SHANIQUE CAMARGO MR#: [id number] : 1955 Acct:[id number] Age/Sex: 68 / F ADM Date: 07/25/24 Loc: RAD Attending Dr: Katelyn Kaufman M.D. Ordering Physician: Katelyn Kaufman M.D. Date of Service: 07/25/24 Procedure(s): XR shoulder RT min 2V Accession Number(s): [id number] cc: Katelyn Kaufman M.D. [place] [address] Patient Name: SHANIQUE CAMARGO MRN: [id number] date: 1955 Sex: F Assigned Patient Location: [facility] Current Patient Location: [facility] Accession/Order Number: [id number] Exam Date: 07/25/2024 17:31 Report Date: 07/25/2024 [...] Dhillon M.D. 07/25/2024 5:31 PM Dictation Location: [place] [address] Electronically authenticated by: [id number] Y Date: 07/25/2024 17:31 Dictated By: Terrence Dhillon D.O. Signed By: 07/25/24 1734 DD/ 30 TD/TT: Cook Specialty:PROF Pabon(COMP METB) Reviewed date:03/06/2024 01:15:20 PM Interpretation: Performing Lab: Notes/Report: [facility] ,Trxsnb302081-562 mmol/LPotassium4.23.5-5.1 mmol/IRenhgbni25414-390 mmol/LCarbon Wcsjdzv86.321.0-32.0 mmol/LAnion Gap9.8Botjdad0938-408 mg/dLBlood Urea Nitrogen 15.07.0-18.0 mg/dLCreatinine0.680.55-1.02 mg/dLEstimated GFR ( Shireen>60 >=60 mL/min/1.73m 2Estimated GFR (Non- Isela>60>=60 mL/min/1.73m 2BUN Creatinine Ratio22.9Ccgbyew6.38.5-10.1 mg/dLBilirubin Total0.20.2-1.0 mg/dL Aspartate Amino Tmsbzjfkdbu4689-37 U/LAlanine Ssdndbixvhpnwfem9768-96 U/L Alkaline Gcviwbtngsx2368-020 U/LTotal Protein7.06.4-8.2 g/dLAlbumin Level3.73.4- 5.0 g/dLGlobulin3.3Albumin Globulin Ratio1.1Performing Lab:see noteML - [facility] hepatobiliary wo pharm Reviewed date:03/01/2024 06:55:03 PM Interpretation: Performing Lab: Notes/Report: Source Facility: [facility] [place] [address] Nuclear Medicine Report Signed Patient: SHANIQUE CAMARGO MR#: [id number] : 1955 Acct:[id number] Age/Sex: 68 / F ADM Date: 03/01/24 Loc: [place] Attending Dr: Katelyn Kaufman M.D. Ordering Physician: aKtelyn Kaufman M.D. Date of Service: 03/01/24 Procedure(s): JESUS hepatobiliary wo pharm Accession Number(s): [id number] cc: Katelyn Kaufman M.D. [place] [address] Patient Name: SHANIQUE CAMARGO MRN: [id number] date: 1955 Sex: F Assigned Patient Location: [place] Current Patient Location: [place] Accession/Order Number: [id number] Exam Date: 03/01/2024 06:40 Report Date: 03/01/2024 09:55 At the request of: KATELYN KAUFMAN Procedure: [place] hepatobiliary wo pharm EXAMINATION: [place] hepatobiliary wo pharm HISTORY: ABDOMINAL PAIN COMPARISON: [...] of common biliary ductal obstruction. OTHER: Negative. [place] hepatobiliary wo pharm IMPRESSION: No evidence of a biliary leak Electronically authenticated by: DEMOND CAAL Date: 03/01/2024 09:55 Dictated By: Edmond Caal M.D. Signed By: 03/01/24957 DD/ 4 TD/TT: Cook Specialty:GLYCOHEMOGLOBIN A1C Reviewed date:08/29/2024 06:58:57 PM Interpretation: Performing Lab: Notes/Report: [facility] ,Glycohemoglobin A1C5.54.5-6.2 % ACTION SUGGESTED ADA RECOMMENDED LIMIT 4.0 - 6.0 > 7.0 ADA THERAPEUTIC TARGET < 7.0 Estimated Average Amwrade989Mduaxmrdha Lab:see noteML - [facility] LB UA (Urinalysis, Dipstix only - w/o micro) Reviewed date:06/14/2024 11:40:26 AM Interpretation: Performing Lab: Notes/Report: COLORyellowYellow - Ellie -CLARITYclearClear - ClearGLUCOSE-0 - 133 MG/DLALBUMIN -NEG - NEG MG/DLBILIRUBIN-NEG - NEG MG/DLSPECIFIC GRAVITY1.0201.001 - 1.035 KETONES-NEG - NEG MG/DLBLOOD, UR-PH, UR55 - 9UROBILNOGEN-0.2 - 1 MG/DLNITRITE- NEG - NEGESTERASE (FERNANDA)-NEG - NEG MG/DLUA DIP NONAUTO WO MICRO (90749) - IN OFFICE Reviewed date:07/26/2024 09:09:48 PM Interpretation: Performing Lab: Notes/Report: COLORyellowCLARITYcloudyGLUCOSEnBILIRUBINnKETONEsmallSPECIFIC GRAVITY1.015BLOOD +++HB8QRXIZNR22+UROBILINOGENnNITRITE+LEUKOCYTE ESTERASE++ Reason For Referral Diagnosis 1 Intestinal angina (K 55.1) Referral Organization [facility] Referring Provider First Name Stanton Referring Provider Last Name [facility] Referring Provider [facility] Referred Provider Specialty Gastroentero logy Referral Priority Routine Diagnosis 1 Bile duct leak (K83. 8) Referral Organization [facility] Referring Provider First Name Stanton Referring Provider Last Name [facility] Referring Provider [facility] Referred Provider Fawad Mcintosh Referred Provider Specialty Gastroentero logy Referral Priority Routine Medications Medication SIG (Take, Route, Frequency, Duration) Notes Start Date End Date Status Voquezna 10 MG 1 tablet Orally Once a day; Duration: 30 days samples 5ActiveRABEprazole Sodium 20 MG1 tablet after a meal Orally twice a day; Duration: 30 days5Active Immunizations Vaccine [...] alcohol in the p ast year? No Tuzpjf5TfvlldueywshobVtovjcyf Problems Problem Type SNOMED Code ICD Code Onset Dates Problem Status W/U Status Risk Notes Problem Age-related osteoporosis (973059 002) Age-related osteoporosis without current pathological fracture (M81.0) ActiveconfirmedProblemAbdominal pain (07840314)Abdominal pain (R10.9)Active confirmedProblemGastroesophageal reflux disease (548614104)GERD (gastroesophageal reflux disease) (K21.9)ActiveconfirmedProblemEpigastric pain (30429696)Epigastric abdominal pain (R10.13)ActiveconfirmedProblemOsteoarthritis of knee (633888565)Knee osteoarthritis (M17.9)ActiveconfirmedProblemDiverticular disease of colon (329544490)Diverticulosis (K57.90)ActiveconfirmedProblemAcute sinusitis (18500656)Acute sinusitis (J01.90)ActiveconfirmedProblemAcute bronchitis (07004391)Acute bronchitis (J20.9)ActiveconfirmedProblemPain of left knee region (finding) (123122635439565)Knee pain, left (M25.562)Activeconfirmed ProblemSciatica (59280731)Sciatic leg pain (M54.30)ActiveconfirmedProblemTubular adenoma (970487663)Tubular adenoma (D36.9)ActiveconfirmedProblemGastroenteritis (92810258)Gastroenteritis (K52.9)ActiveconfirmedProblemUpper abdominal pain (13445644)Upper abdominal pain (R10.10)ActiveconfirmedProblemIntestinal angina (198710213)Intestinal angina (K55.1)ActiveconfirmedProblemBile duct leakage (disorder) (932015837)Bile duct leak (K83.8)ActiveconfirmedProblemOsteoarthritis of knee (756674752)Knee osteoarthritis (M17.10)Activeconfirmed Vital Signs Temperature 98.2 degrees Fahrenheit 06/02/2024 Blood pressure mbgdfubfx51 mm Hg02/19/20250876Ngohdj38 in02/19/2025lood pressure mm Hg02/19/20256041Lviinq392 lbs1MI29.09 kg/m202/19/2025 Procedures Procedure Date Ordered Date Performed Result Body Sit e Colonoscopy 03/29/2024 Normal Encounters Encounter Location Date Provider Diagnosis [facility] [address] [place] [address] 12/07/[address] [facility] [place] [address] 02/07/2025Doug [facility] [place] [address]/27/2025Doug HoyIntestinal angina K55.1 ; Upper abdominal pain R10.10 and Bile duct [facility]83.8[facility] [place] [place] [address]/06/2024Doug [facility] [facility] [place] [address]/Doug [facility] [place] [address]/05/2024Doug [facility] [facility] [place] [address]/09/2024 Stanton [facility] [place] [address]/Doug [facility] [facility] [place] [address]/09/2024Doug [facility] [facility] [place] [address]/09/2024Doug [facility] [facility] [place] [address]/11/2024Doug [facility] [facility] [place] [address]/ [facility] [facility] [place] [address] 03/10/2024Doug [facility] [facility] [place] [address]/Doug [facility] [facility] [place] [address]/07/2024Doug [facility] [facility] [place] [address]/Doug HoyGastroenteritis K52.9 and Abdominal pain R10.9BAd[facility] [facility] [place] [address]/Doug HoyGERD (gastroesophageal reflux disease) K21.9 and Intestinal angina K55.1BAd[facility] [place] [address]/Doug HoyKnee osteoarthritis M17.9B[address] [place] [address]/03/2024 Stanton Macedo for Medicare annual wellness exam Z00.[address] [address]/Doug HoyUTI (urinary tract infection) N39.[address] [place] [address]/01/2025Doug HoyAcute non-recurrent sinusitis, unspecified location J01.90 and Nasal congestion R09.[address] [address]/12/2024Doug HoyBurning with urination R30.0 ; UTI (urinary tract infection), uncomplicated N39.0 and Dysuria R30.[address] [place] [address]/03/2024Doug HoyShoulder impingement M25.819 and Impingement of right shoulder M25.811B[address] [place] [address]/Doug HoyKnee pain, left M25.562 and Gastritis K29.[address] [place] [address]/07/2024Doug HoyAbdominal pain R10.9B[address] [address]/Doug HoyEpigastric abdominal pain R10.13 Assessments Encounter Date Diagnosis (ICD Code) Assessment Notes Treatment Notes Treatment Clinical Notes Section Notes 04/20/2024 GERD (gastroesophageal reflux di sease) (ICD-10 - K21.9) 04/20/2024Intestinal angina (ICD-10 - K55.1)06/02/2024urning with urination (ICD-10 - R30.0)02/28/2024bdominal pain (ICD-10 - R10.9)03/06/2024Epigastric abdominal pain (ICD-10 - R10.13)5Acute non-recurrent sinusitis, unspecified location (ICD-10 - J01.90)Rest and drink more liquids, especially water. You may use a humidifier or vaporizer to help keep the drainage moist. Dvzf-xhx-hrbmdlb Nasal Saline may help the stuffy and runny nose. Use Ibuprofen and or Tylenol as needed for fever, chills, body aches or pain. Children 5 years old should not be given vjml-mdk-dmvmkao cough and cold medications such as guaifenesin and dextromethorphan. If you're over age 5, you may try wvol-wkw-maxfmkb cold medications such as guaifenesin and dextromethorphan, [...] - M25.819)07/24/2024Impingement of right shoulder (ICD-10 - M25.811)08/23/2024Encounter for Medicare annual wellness exam (ICD-10 - [...] was due for yearly labs which were sxrqytp3308/18/2024Knee osteoarthritis (ICD-10 - M17.9) 12/17/2025Knee pain, left (ICD-10 - M25.562)02/07/2025Gastritis (ICD-10 - K29.70)trial double dose - if not heloing caling back02/19/2025Gastroenteritis (ICD-10 - K52.9)Get plenty of rest. Stay hydrated by sucking on ice chips or taking small sips of water. You can also try drinking clear soda, clear broths or noncaffeinated sports drinks. Stop eating solid foods for a few hours to let your stomach settle. East back into eating by eating bland, dpdq-lq-gmaetq foods like crackers, toast, gelatin, bananas, rice and chicken. Try to avoid foods/substances including dairy products, caffeine, alcohol, nicotine and fatty or highly seasoned foods. Medications such as ibuprofen or tylenol can make your stomach more upset, so use sparingly if at all. Also avoid ydzh-vmw-xooijra anti-diarrheal medications because it can make it harder for your body to eliminate the virus.02/19/2025bdominal pain (ICD-10 - R10.9)04/20/2024 Intestinal angina (ICD-10 - K55.1)04/20/2024Upper abdominal pain (ICD-10 - R10.10)04/20/2024ile duct leak (ICD-10 - K83.8)04/05/2024Nasal congestion (ICD- 10 - R09.81)06/02/2024UTI (urinary tract infection), uncomplicated (ICD-10 - N39.0)Drink [...] until they are finished. You can use qsni-cwk-pfcakfs acetaminophen or ibuprofen if needed for pain. You should follow up with your Primary Care Physician or return to clinic if not improving in the next 3-5 days.06/02/2024 Dysuria (ICD-10 - R30.0) Plan Of Treatment [...] NUC MED [place] with Ejection Fraction * Urinalysis Microscopic 02/19/2025 COMPREHENSIVE METABOLIC PROFILE WITH GFR 08/23/2024 OCCULT BLOOD, FECAL, IMMUNOASSAY 025 C DIFF TOX PCR STOOL 10/11/2023 CBC W/AUTO DIFF 08/23/2024 AMYLASE 02/19/2025 CBC AUTO DIFF 02/19/2025 CULTURE URINE 02/19/2025 LIPASE 02/19/2025 PROF 14(COMP METB) 02/19/2025 VIT B12 AND FOLATE 06/23/2023 CT ABD and PELV W CON 09/21/2023 US ABD 11/26/2023 US ABD 02/02/2024 US ABD 02/19/2025 XR DEXA BONE DENSITY 06/02/2023 XR SHOULDER RT 2V or > 07/24/2024 XR TIB_FIB LT 2V 02/07/2025 THYROID PANEL (T4/TSH/FREE T3) 5 THYROID PANEL (T4/TSH/FREE T3) 3 Lipid Panel 08/23/2024 Vitamin D, 25-Hydroxy 06/23/2023 NUC MED Hida with Ejection Fraction * CMP (COMP MET MARTINEZ) w/eGFR CKD-EPI 2024 Insurance Providers Payer Name Payer Address Payer Phone Subscriber Number Group Number Insured Name Patient Relationship to Insured Coverage Start Date Coverage End Date [facility] [employer] [address] [address] [place] [phone] [id number] Raman Shanique Self - patient is the insured 4 Medical (General) History Medical History History ICD Code Arthritis M19.90 Inguinal hernia K40.90 Diverticular disease K57.90 Surgical History Surgery Date(Month/Year) EGD 05/10/24 Colonoscopy, polyp x3- Dr Diggs 5 gallbladder removed 12/13/23 EGD 11/24/2023 Hernia Repair Left Knee Wfhhtpd86/20/16Right Knee Surgery11/12/15Carpal Bvawrg0671Unsnbxbldtqko 7149Voxhjjaqvzyx0802
--- OUTSIDE RECORDS SUMMARY | 2025-02-19 14:14 | XMS_ITS | Clinical Summary ---
Author Organization [facility] Address [address] [place] [address] Care Team Providers Care Speech Therapist Technician Name Role Phone Merrill Kaufman MD Primary Care Provider [phone] Allergies Active AllergyReactionsCriticalityNoted DateCommentsDicyclomineGI intolerance 05/01/2024 STOMACH PAINS FamotidineGI mnlyztxsvyn70/10/2025 STOMACH PAINS HyoscyamineGI gkvsxfndulv69/10/2025 STOMACH ACHES WqwmvddlfxyoClwir68/14/2024 Severe muscle aches Nsaids (Non-Steroidal Anti-Inflammatory Drug)GI eygnqhdsooo49/14/2024 Metoclopramide VrcWaojt81/10/2025 INSOMNIA, CHEST DISCOMFORT SucralfateGI pqdzajdlext66/14/2024 Medications MedicationSigDispense QuantityRefillsLast FilledStart DateEnd DateStatus hyoscyamine [...] InformationValueDate RecordedSex Assigned at BirthNot on fileLegal KwdHsbegc85/20/2025 7:50 AM ESTGender Identity Not on fileSexual OrientationNot on file Last Filed Vital Signs Vital SignReadingTime TakenCommentsBlood Atlvgnto069/72005/10/2024 9:27 AM EDT Mimtf753205/10/2024 9:27 AM UNCRopxvfmgbou26.1 ??C (97 ??F)05/10/2024 9:27 AM EDT Respiratory Ewea047805/10/2024 9:27 AM EDTOxygen Tyoqorzhrv060%05/10/2024 9:27 AM EDTInhaled Oxygen Concentration--Hrfcsq26.6 kg (151 lb 3.8 oz)05/10/2024 7:21 AM IXPMbzsys793.9 cm (5' 1 )05/10/2024 7:21 AM EDTBody Mass Index28.58005/10/2024 7:21 AM EDT Plan of Treatment Health MaintenanceDue DateLast DoneCommentsCT Xphchaknrywc45/30/1954Colonoscopy 4Colorectal Cancer Myjqpnykc10/30/1954FIT-DNA1953FIT1953 FOBT1953Medicare Annual Wellness (AWV)12/21/19532691Dkgzcvbwnpjkz37/30/1954 Depression Soakysyxn08/30/1966Adult Ktlkjve5812/22/1975Pneumococcal Vaccine: 50+ Years (1 of 1 - PCV)12/22/2003Zoster Vaccines (1 of 2)12/22/2003Mammogram Fall Risk Lhedlftro03/30/2019COVID-19 Vaccine (3 - season), 09/24/2020Influenza Vaccine (#1)2024 [...] MemberRelationshipSpecialtyStart DateEnd Merrill Kaufman MD [address] [facility] [address] [address] [facility] - General05/10/24
--- OUTSIDE RECORDS SUMMARY | 2025-02-19 14:14 | XMS_ITS | Clinical Summary ---
Author Organization [facility] Address [address] [place] [address] Care Team Providers Care Patient Placement Coordinator Name Role Phone Merrill Kaufman MD Primary Care Provider [phone] Allergies Active AllergyReactionsCriticalityNoted QgmgKtobdcjaCtdbqxzeoowxHrmzi59/14/2024 NsaidsGI mbrnnenqjkd57/14/2024SucralfateGI /14/2024 Medications MedicationSigDispense QuantityRefillsLast FilledStart DateEnd DateStatus hyoscyamine (Anaspaz) 0.[address] 0.125 mg under the tongue every 4 (four) hours if rzccvq6811/29/2023ctive pantoprazole (ProtoNix) 40 MG EC tablet Take 40 mg by mouth DailyActive ondansetron ODT (Zofran-ODT) 4 MG disintegrating tablet Take 4 mg by mouth every 8 (eight) hours if needed for nauseaActive Social History Tobacco UseTypesPacks/DayYears UsedDateSmoking Tobacco: Never Assessed CommentsUnknownSex and Gender InformationValueDate RecordedSex Assigned at Not on fileLegal MekRowvzo71/15/2023 6:57 PM EDTGender IdentityNot on fileSexual OrientationNot on file Last Filed Vital Signs Vital SignReadingTime TakenCommentsBlood Qsznonrf619/7411 12:51 PM EST Pkdzf812512/27/2023 12:51 PM ESTTemperature--Respiratory Pujx551102/25/2023 12:51 PM ESTOxygen Wsntlcuidv58%12/27/2023 12:51 PM ESTInhaled Oxygen Concentration-- Nvdqby69.5 kg (151 lb)12/27/2023 12:51 PM NLSTuhnmt381.5 cm (5' 2 )12/27/2023 12:51 PM ESTBody Mass Index27.6212/27/2023 12:51 PM EST Plan of Treatment Not on file Insurance Care Teams Team MemberRelationshipSpecialtyStart DateEnd Date Merrill Kaufman MD PCP - GeneralFamily Hayllrgl41/14/24
[2025-02-19 14:39] LABS: Hematocrit 44.6 % (36.0-48.0); Hemoglobin 14.1 g/dL (12.0-16.0); Immature Granulocytes Abs Auto 0.02 10^3/uL (0.00-0.03); Immature Granulocytes Pct Auto 0.2 % (0.0-0.5); Lymphocytes Absolute Auto 3.1 10^3/uL (1.2-3.8); Mean Corpuscular HGB Conc 31.6 g/dL (29.9-35.2); Mean Corpuscular Hemoglobin 29.6 pg (26.7-34.0); Mean Corpuscular Volume 93.5 fL (81.0-99.0); Platelet Count 297 10^3/uL (150-450); Red Blood Count 4.77 10^6/uL (4.20-5.40); White Blood Count 8.5 10^3/uL (4.0-11.0)
[2025-02-19 15:01] LABS: Glucose Urine UA NEGATIVE (NEGATIVE)
[2025-02-19 15:16] LABS: Cast Seen? NONE SEEN #/LPF (NONE SEEN); Crystals Seen? None Seen #/HPF (None Seen); Urine Culture Indicated NO
[2025-02-19 15:35] LABS: Alanine Aminotransferase 33 U/L (14-59); Albumin Globulin Ratio 1.0; Albumin Level 3.7 g/dL (3.4-5.0); Alkaline Phosphatase 77 U/L (46-116); Amylase 56 U/L (25-115); Anion Gap 11.3; Aspartate Amino Transferase 22 U/L (15-37); Blood Urea Nitrogen 20.0 mg/dL (7.0-18.0); Calcium 9.1 mg/dL (8.5-10.1); Carbon Dioxide 33.6 mmol/L (21.0-32.0); Chloride 103 mmol/L (98-107); Estimated GFR (African America >60 (>=60 mL/min/1.73m^2); Estimated GFR (Non-African Ame >60 (>=60 mL/min/1.73m^2); Globulin 3.6 g/dL; Glucose 92 mg/dL (74-106); Lipase 48.0 U/L (16.0-77.0); Potassium 3.9 mmol/L (3.5-5.1); Sodium 144 mmol/L (136-145); Total Protein 7.3 g/dL (6.4-8.2)
== END 2025-02-19 14:07 | disposition home or self-care (01) ==
LOC: LAB 14:09
PROVIDERS: PCP Family Medicine; Visit Provider Family Medicine
DX: R10.9 Unspecified abdominal pain (principal)
CPT/HCPCS: 36415; 80053; 81001; 82150; 83690; 85025; 87086

== ENCOUNTER 2025-02-20 07:48 | Outpatient (OUT) | payer MEDICARE, SELFPAY ==
--- OUTSIDE RECORDS SUMMARY | 2023-10-18 08:40 | XMS_ITS ---
Author Organization [facility] Address [address] [place] [address] Care Team Providers Care Cargo And Ramp Services Manager Name Role Phone Merrill Kaufman Primary Care Provider Jas Correa Unavailable [phone] REASON FOR VISIT left knee pain recheck Encounters Encounter Location Date Provider Diagnosis [facility] Office [address] [facility] [facility] [address] [facility] [place] [address] 10/18/2023 Jas Kelly Plan Of Treatment No Information Progress Notes * CYRILRUPERT MARY JO LDOB:[birth year] (69 yo F)Acc No.[id number]:10/18/2023 Patient:?MARY JO ROBLES :?MICHAEL OscarOB:1955???Age:67 Y ???Sex:FemaleDate:10/18/2023hone:[phone]:[address] [place], [place]-[id number]:Merrill Kaufman Subjective: * Chief Complaints: * 1 . Left knee pain recheck. * Medical History: Objective: * Vitals: Assessment: Plan: * Treatment: Forms: * Images: * Electronic signature of Jas Kelly DO on 02/20/2025 at 07:50 AM ESTSign off status: Pending * Provider: Jacey Kelly DO Date: 0 10/18/2023 Generated for Printing/Faxing/eTransmitting on:?02/20/2025 07:50 AM EST
--- OUTSIDE RECORDS SUMMARY | 2025-02-07 03:45 | XMS_ITS ---
Author Organization The [facility] in [place] Address [address] [place] [address] Care Team Providers Care Hybrid Corn Breeder Name Role Phone Stanton Yoon Primary Care Provider Allergies Allergen (clinical drug ingredient) Drug/Non Drug Allergy documented on EMR Reaction Allergy Type Onset Date Status Levaquinsevere muscle achesDrug AllergyActiveNon-steroidal anti-inflammatory agent (FN)NSAIDsGI INTOLERANCEDrug AllergyActivesucralfateSucralfateGI intoleranceDrug AllergyActive Results Component Value Reference Range Notes XR KNEE LT 3V Reviewed date:02/07/2025 04:56:10 PM Interpretation: Performing Lab: Notes/Report: Source Facility: [place] [address] [place] [address] XRay Report Signed Patient: SHANIQUE CAMARGO MR#: [id number] : 1955 Acct:[id number] Age/Sex: 69 / F ADM Date: 02/07/25 Loc: RAD Attending Dr: Katelyn Yoon M.D. Ordering Physician: Katelyn Yoon M.D. Date of Service: 02/07/25 Procedure(s): XR knee LT 3V Accession Number(s): [id number] cc: Katelyn Yoon M.D. [place] [address] Patient Name: SHANIQUE CAMARGO MRN: [facility]:[id number] date: 1955 Sex: F Assigned Patient Location: [facility] Current Patient Location: [facility] Accession/Order Number: [id number] Exam Date: 02/07/2025 09:55 Report Date: 02/07/2025 [...] Mckoy M.D. 02/07/2025 10:22 AM Dictation Location: [employer] Electronically authenticated by: [id number] Y Date: 02/07/2025 10:22 Dictated By: Xiomara Mckoy M.D. 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Katelyn Yoon ([facility]), MDDOB:1955???Age: 69 Y???Sex:FemaleDate:02/07/2025Phone:[phone]:[address], [id number] In:08:32 AM ESTCheck Out:09:14 AM EST Subjective: [...] Problem List J20.9 Acute bronchitis Modified On:01/28/2023U Status:zskhaeoehB28.90Acute sinusitis Modified On:01/06/2023U Status:sowtizqmcG55.0Age-related osteoporosis without current pathological fracture Modified On:06/02/2023U Status:vlfhxlaxxU71.30Sciatic leg pain Modified On:07/08/2023U Status:ahruxsvezL72.9Knee osteoarthritis Modified On:08/02/2023U Status:sgdwxonfqI28.13Epigastric abdominal pain Modified On:09/09/2023U Status:skpahevfzS00.90Diverticulosis Modified On:09/28/2023U Status:vtmymgfqgJ94.9GERD (gastroesophageal reflux disease) Modified On:10/29/2023U Status:txuaapjlbZ65.9Abdominal pain Modified On:11/26/2023U Status:jldffsdxwF02.10Upper abdominal pain Modified On:01/10/2024U Status:dnkuvujrsU05.10Knee osteoarthritis Modified On:01/19/2024U Status:xzpqvjqgpT59.9Tubular adenoma Modified On:04/04/2024U Status:qtjyueszoX53.1Intestinal angina Modified On:04/20/2024U Status:ewajfalmhX27.8Bile duct leak Modified On:04/21/2024U Status:ufconhwylR20.562Knee pain, left Modified On:02/07/2025U Status:confirmed * Medical [...] (Check Out) true * Provider: Jacey Yoon ([facility])MD Date: 1 04/10/2024 Generated for Printing/Faxing/eTransmitting on:?02/20/2025 07:50 AM EST History and Physical Notes * HPI [...]
--- OUTSIDE RECORDS SUMMARY | 2025-02-19 08:45 | XMS_ITS ---
Author Organization The [facility] [place] Address [address] [place] [address] Care Team Providers Care Night Court Magistrate Name Role Phone Stanton Kaufman Primary Care Provider [phone] Allergies Allergen (clinical drug ingredient) Drug/Non Drug Allergy documented on EMR Reaction Allergy Type Onset Date Status Levaquinsevere muscle achesDrug AllergyActiveNon-steroidal anti-inflammatory agent (FN)NSAIDsGI INTOLERANCEDrug AllergyActivesucralfateSucralfateGI intoleranceDrug AllergyActive Results Component Value Reference Range Notes AMYLASE Reviewed date:02/19/2025 06:16:49 PM Interpretation: Performing Lab: Notes/Report: The [facility] , Amylase 56 25-115 U/L Performing Lab:see noteML - [facility] LBCBC AUTO DIFF Reviewed date:02/19/2025 06:16:49 PM Interpretation: Performing Lab: Notes/Report: [facility] ,White Blood Count8.54.0-11.0 10 3/uLRed Blood Count4.774.20-5.40 10 6/uL Cuoxdrxkub63.112.0-16.0 g/rVGywhsqamao96.636.0-48.0 %Mean Corpuscular Mhywlc90.5 81.0-99.0 fLMean Corpuscular Qaccnqucgd90.626.7-34.0 pgMean Corpuscular HGB Conc 31.629.9-35.2 g/dLRed Cell Distribution Width12.611.0-15.0 %Platelet Saaed663 150-450 10 3/uLMean Platelet Mbfpmf61.59.5-13.5 fLNeutrophils Percent Auto48.6 43.0-75.0 %Lymphocytes Percent Auto35.920.5-60.0 %Monocytes Percent Auto11.51.7- 12.0 %Eosinophils Percent Auto3.30.9-7.0 %Basophils Percent Auto0.50.2-2.0 % Immature Granulocytes Pct Auto0.20.0-0.5 %Neutrophils Absolute Auto4.21.4-6.5 10 3/uLLymphocytes Absolute Auto3.11.2-3.8 10 3/uLMonocytes Absolute Auto1.00.3-0.8 10 3/uLEosinophils Absolute Auto0.30.0-0.7 10 3/uLBasophils Absolute Auto0.00.0- 0.1 10 3/uLImmature Granulocytes Abs Auto0.020.00-0.03 10 3/uLPerforming Lab:see noteML - [facility] LBLIPASE Reviewed date:02/19/2025 06:16:49 PM Interpretation: Performing Lab: Notes/Report: The [facility] ,Cfjxej78.016.0-77.0 U/LPerforming Lab:see noteML - [facility] LBPROF 14(COMP METB) Reviewed date:02/19/2025 06:16:49 PM Interpretation: Performing Lab: Notes/Report: The [facility] ,Kzmpmg938758-213 mmol/LPotassium3.93.5-5.1 mmol/GCttzyhjs34139-690 mmol/LCarbon Ncdvlzj49.621.0-32.0 mmol/LAnion Gap11.3Ezkvqqh8364-139 mg/dLBlood Urea Nitrogen 20.07.0-18.0 mg/dLCreatinine0.660.55-1.02 mg/dLEstimated GFR ( Shireen>60 >=60 mL/min/1.73m 2Estimated GFR (Non- Isela>60>=60 mL/min/1.73m 2BUN Creatinine Ratio30.7Tpbbdki1.18.5-10.1 mg/dLBilirubin Total0.30.2-1.0 mg/dL Aspartate Amino Mtuanuucfot4897-96 U/LAlanine Sdndtwskkcakrchr0120-23 U/L Alkaline Ynsjwnmsqln1981-012 U/LTotal Protein7.36.4-8.2 g/dLAlbumin Level3.73.4- 5.0 g/dLGlobulin3.6Albumin Globulin Ratio1.0Performing Lab:see noteML - [facility] REASON FOR VISIT stomach issues-ongoing, lower abdominal pains after eating, indigestion Medications Medication SIG (Take, Route, Frequency, Duration) Notes Start Date End Date Status Voquezna 10 MG 1 tablet Orally Once a day; Duration: 30 days samples 02/19/2025tiveRABEprazole Sodium 20 MG1 tablet after a meal Orally twice a day; Duration: 30 days5Active Social History Tobacco Use: Social History Observation Description Date Details (start date - stop date) Never Smoker NA - NA Tobacco Use/Smoking Question Answer Notes Patient is a nonsmoker AUDIT-C (Standard) Question Answer Notes Did you have a drink containing alcohol in the p ast year? No Sqaono8StzvhnmwhaheoiOpgvyqoj Problems Problem Type SNOMED Code ICD Code Onset Dates Problem Status W/U Status Risk Notes Problem Gastroenteritis (17262559) Gastroenteriti s (K52.9) Activeconfirmed Vital Signs Weight 154 lbs 02/19/2025 Height 61 in 02/19/2025 Blood pressure systolic 124 mm Hg 02/20/20 25 Blood pressure diastolic 80 mm Hg 025 BMI 29.09 kg/m2 02/19/2025 Encounters Encounter Location Date Provider Diagnosis [facility] [address] [place] [address] 02/19/2025 Stanton Hoy Gastroenteritis K52. 9 and Abdominal pain R10.9 Assessments Encounter Date Diagnosis (ICD Code) Assessment Notes Treatment Notes Treatment Clinical Notes Section Notes 02/19/2025 Gastroenteritis (ICD-10 - K52.9) Get plenty of rest. Stay hydrated by sucking on ice chips or taking small sips of water. You can also try drinking clear soda, clear broths or noncaffeinated sports drinks. Stop eating solid foods for a few hours to let your stomach settle. East back into eating by eating bland, mcgq-qz-mbkzxp foods like crackers, toast, gelatin, bananas, rice and chicken. Try to avoid foods/substances including dairy products, caffeine, alcohol, nicotine and fatty or highly seasoned foods. Medications such as ibuprofen or tylenol can make your stomach more upset, so use sparingly if at all. Also avoid yvis-rkk-ycsardm anti-diarrheal medications because it can make it harder for your body to eliminate the virus.02/19/2025bdominal pain (ICD-10 - R10.9) Plan Of Treatment Medication Medication Name Sig Start Date Stop Date Notes Voquezna 10 MG 1 tablet Orally Once a day; Duration: 3 0 days 02/19/2025 Treatment Notes Assessment Notes Gastroenteritis Get plenty of rest. Stay hydrated by sucking on ice chips or taking small sips of water. You can also try drinking clear soda, clear broths or noncaffeinated sports drinks. Stop eating solid foods for a few hours to let your stomach settle. East back into eating by eating bland, yqyi-lx-tngglo foods like crackers, toast, gelatin, bananas, rice and chicken. Try to avoid foods/substances including dairy products, caffeine, alcohol, nicotine and fatty or highly seasoned foods. Medications such as ibuprofen or tylenol can make your stomach more upset, so use sparingly if at all. Also avoid hswf-esz-dzzkmfb anti-diarrheal medications because it can make it harder for your body to eliminate the virus. Pending Test Test Name Order Date Urinalysis Microscopic 02/19/2025 CULTURE URINE 02/19/2025 US ABD 02/19/2025 Progress Notes * Shanique CAMARGO LDOB:[birth year] (69 yo F)Acc No.[id number]:02/19/2025 UNLOCKED PROGRESS NOTE Progress Note Patient: Shanique DOLAN :?Merrill HenokArpita Kaufman ([facility]), MDDOB:1955???Age: 69 Y???Sex:FemaleDate:02/19/2025Phone:[phone]:[address] [place], [id number] In:01:34 PM ESTCheck Out:01:59 PM EST Subjective: * Chief Complaints: * 1 . Stomach issues-ongoing, lower abdominal pains after eating, indigestion. * HPI: ???General:? abd pain - loose stol p no diarrhea -no fevers. ???Gastroenteritis:?The patient complains of?symptoms of the stomach flu.?The symptoms have been present for?1-2 days.?The symptoms are?moderate.?The patient?has not been exposed to sick contacts.?Symptomatic treatment has included?OTC medication.?Associated symptoms include?abdominal pain, diarrhea, stomach cramps, nausea, vomiting, chills, fever.? * ROS: ???General/Constitutional:?Recent Weight Gain?denies.?Skin:?Rash?denies.?Cardiovascular:?Edema?denies.?Palpitations?denies.?Gastrointestinal:?Comments?See HPI for details.? * Medical History: A rthritis, Inguinal hernia, Diverticular disease. * Surgical History: H ysterectomy 1988, Tonsillectomy 1963, Carpal Tunnel 2001, Right Knee Surgery 11/12/15, Left Knee Surgery 01/12/16, Hernia Repair , EGD 11/24/2023, gallbladder removed 12/13/23, Colonoscopy, polyp x3- Dr Diggs 03/2024, EGD 05/10/24. * Family History: F ather: , COPD. M other: , COPD, colon cancer, diagnosed with Cancer, Hypertension. B rother(s): alive. S ister(s): alive, COPD. S on(s): alive. D iza(s): alive. 3 brother(s) , 4 sister(s) - healthy. 1 son(s) , 2 daughter(s) - healthy. . * Social History: ???Tobacco Use:?Tobacco Use/Smoking?Patient is a?nonsmoker ???Drug/Alcohol:?AUDIT-C (Standard)?Did you have a drink containing alcohol in the past year??No ?Points?0 ?Interpretation?Negative * Medications: T stefan RABEprazole Sodium 20 MG Tablet Delayed Release 1 tablet after a meal Orally twice a day , Medication List reviewed and reconciled with the patient * Allergies: L evaquin: severe muscle aches - Side Effects - Criticality High, NSAIDs: GI INTOLERANCE - Allergy - Criticality High, Sucralfate: GI intolerance - Allergy - Criticality High. Objective: * Vitals: W t:154lbs, Ht: 61 in, BP:124/80mm Hg, BMI:29.09Index, Ht-cm: 154.94 cm, Wt-k.85 kg. * Examination: ???General Examination: ?GENERAL APPEARANCE:? well developed, well nourished, in noacute distress.?ENT:? Normocephalic , Atraumatic.?EYES:? pupils equal, round, reactive to light and accomodations, sclera non-icteric.?EARS:? normal.?ORAL CAVITY:? mucosa moist.?THROAT:? clear.?LUNGS:? clear to auscultation bilaterally.?CARDIO:? regular rate and rhythm, S1, S2 normal, no murmurs.?ABDOMEN:?Diffuse abd tendernss.?SKIN:? warm and dry, no suspicious lesions.?EXTREMITIES:? no clubbing, cyanosis, or edema.?NEUROLOGIC:? nonfocal, motor strength of upper/lower extremities intact , sensory exam intact.?NECK/THYROID:? neck supple, full range of motion, no cervical lymphadenopathy.? Assessment: * Assessment: 1.?Gastroenteritis - K52.9 (Primary)???2.?Abdominal pain - R10.9? ? Plan: * Treatment: Start Voquezna Tablet, 10 MG, 1 tablet, Orally, Once a day samples, 30 days, 30 Tablet.?Imaging: US ABD Notes: Get plenty of rest. Stay hydrated by sucking on ice chips or taking small sips of water. Youcan also try drinking clear soda, clear broths or noncaffeinated sports drinks. Stop eating solid foods for a few hours to let your stomach settle. East back into eating by eating bland, uvgs-tq-slxldl foods like crackers, toast, gelatin, bananas, rice and chicken. Try to avoid foods/substances including dairy products, caffeine, alcohol, nicotine and fatty or highly seasoned foods. Medications such as ibuprofen or tylenol can make your stomach more upset, so use sparingly if at all. Also ntasmgcmm-avl-vynuegx anti- diarrheal medications because it can make it harder for your body to eliminate the virus.??2.?Abdominal pain?LAB: Urinalysis Microscopic ?LAB: CULTURE URINE ?LAB: AMYLASE (Collection Date & Time - 02/19/2025 02:23 PM) ?LAB: CBC AUTO DIFF (Collection Date & Time - 02/19/2025 02:23 PM) ?LAB: LIPASE (Collection Date & Time - 02/19/2025 02:23 PM) ?LAB: PROF 14(COMP METB) (Collection Date & Time - 02/19/2025 02:23 PM) * Labs: * L ab: PROF 14(COMP METB) (Collection Date & Time - 02/19/2025 02:23 PM) ?Lab: AMYLASE (Collection Date & Time - 02/19/2025 02:23 PM)?Lab: LIPASE (Collection Date & Time - 02/19/2025 02:23 PM)?Lab: CBC AUTO DIFF (Collection Date & Time - 02/19/2025 02:23 PM) * Preventive Medicine: ??Screenings/Counseling:?BMI ACTION PLAN?Above Normal BMI Follow-up?Dietary management education, guidance, and counseling ?FALL RISK SCREENING?Fall Risk Assessment:?No falls in the past year * * Electronic signature of Stanton Kaufman MD, [id number] on 02/20/2025 at 07:50 AM EST Sign off status: PendingVisit Status:?CHK (Check Out) * Provider: Jacey Kaufman ([facility])MD Date: 1 Generated for Printing/Faxing/eTransmitting on:?02/20/2025 07:50 AM EST History and Physical Notes * HPI (History of Present Illness) CategorySub-CategoryDetailNotesCategory NotesGeneralabd pain - loose stol p no diarrhea -no feversGastroenteritisThe patient complains ofsymptoms of the stomach fluThe symptoms have been present for1-2 daysThe symptoms aremoderateThe patienthas not been exposed to sick contactsSymptomatic treatment has included OTC medicationAssociated symptoms includeabdominal pain, diarrhea, stomach cramps, nausea, vomiting, chills, fever Examination CategorySub-CategoryDetailNotesCategory NotesGeneral ExaminationGENERAL APPEARANCE:well developed, well nourished, in no acute distressENT:Normocephalic , AtraumaticEYES:pupils equal, round, reactive to light and accomodations, sclera non-ictericEARS:normalTHROAT:clearCARDIO:regular rate and rhythm, S1, S2 normal, no murmursLUNGS:clear to auscultation bilaterallyABDOMEN:Diffuse abd tendernssNEUROLOGIC:nonfocal, motor strength of upper/lower extremities intact , sensory exam intactSKIN:warm and dry, no suspicious lesionsEXTREMITIES:no clubbing, cyanosis, or edemaORAL CAVITY:mucosa moistNECK/THYROID:neck supple, full range of motion, no cervical lymphadenopathy
--- OUTSIDE RECORDS SUMMARY | 2025-02-20 07:50 | XMS_ITS | Patient Health Record ---
Author Organization [facility] Address [address] [place] [address] Care Team Providers Care Grain Mill Worker Name Role Phone Merrill Kaufman Primary Care Provider Jas Correa Unavailable [phone] Reason For Referral No Information Problems Problem Type SNOMED Code ICD Code Onset Dates Problem Status W/U Status Risk Notes Problem Sciatica (13534911) Sciatica (M54.30) ActiveconfirmedProblemHistory of left knee replacement (6795021583589219)History of left knee replacement (Z96.652)Activeconfirmed Plan Of Treatment Pending Test Test Name Order Date PT/OT - Eval and Treat 08/16/2023 Insurance Providers Payer Name Payer Address Payer Phone Subscriber Number Group Number Insured Name Patient Relationship to Insured Coverage Start Date Coverage End Date [employer] MEDICARE [address] [address] [place] [address] [id number] MARY JO ROBLES Self - patient is the insured
--- OUTSIDE RECORDS SUMMARY | 2025-02-20 07:51 | XMS_ITS | Clinical Summary ---
Author Organization [facility] Address [address] [place] [address] Care Team Providers Care Limerock Tower Loader Name Role Phone Merrill Kaufman MD Primary Care Provider [phone] Allergies Active AllergyReactionsCriticalityNoted DateCommentsDicyclomineGI intolerance 05/01/2024 STOMACH PAINS FamotidineGI /10/2025 STOMACH PAINS HyoscyamineGI cznehjhcowv96/10/2025 STOMACH ACHES VtnatxzqtxdfEfdhx55/14/2024 Severe muscle aches Nsaids (Non-Steroidal Anti-Inflammatory Drug)GI bodwtmkuboh00/14/2024 Metoclopramide GriAooqg48/10/2025 INSOMNIA, CHEST DISCOMFORT SucralfateGI vjknimhbwje35/14/2024 Medications MedicationSigDispense QuantityRefillsLast FilledStart DateEnd DateStatus hyoscyamine [...] InformationValueDate RecordedSex Assigned at BirthNot on fileLegal SwmHmurnp96/20/2025 7:50 AM ESTGender Identity Not on fileSexual OrientationNot on file Last Filed Vital Signs Vital SignReadingTime TakenCommentsBlood Bwhtzeau451/72005/10/2024 9:27 AM EDT Tyyvj265205/10/2024 9:27 AM XQBMptpvhpsglg60.1 ??C (97 ??F)05/10/2024 9:27 AM EDT Respiratory Xljl406305/10/2024 9:27 AM EDTOxygen Gfhdmeakcd396%05/10/2024 9:27 AM EDTInhaled Oxygen Concentration--Wkwqni48.6 kg (151 lb 3.8 oz)05/10/2024 7:21 AM OXCYhdiax082.9 cm (5' 1 )05/10/2024 7:21 AM EDTBody Mass Index28.58005/10/2024 7:21 AM EDT Plan of Treatment Health MaintenanceDue DateLast DoneCommentsCT Ppcxaaxhtqfq54/30/1954Colonoscopy 4Colorectal Cancer Yfzkhrjzw65/30/1954FIT-DNA1953FIT1953 FOBT1953Medicare Annual Wellness (AWV)12/21/19536988Tkugyhgmzzvyv62/30/1954 Depression Insaacvmy16/30/1966Adult Xdyplfv6612/22/1975Pneumococcal Vaccine: 50+ Years (1 of 1 - PCV)12/22/2003Zoster Vaccines (1 of 2)12/22/2003Mammogram Fall Risk Zupaeqjjf92/30/2019COVID-19 Vaccine (3 - season), 09/24/2020Influenza Vaccine (#1)2024 [...] MemberRelationshipSpecialtyStart DateEnd Merrill Kaufman MD [address] [address] [facility] - General05/10/24
--- OUTSIDE RECORDS SUMMARY | 2025-02-20 07:51 | XMS_ITS | CCD ---
Author Organization [facility] CliniSyky Care Team Providers Care Enamel Finisher Name Role Phone ALEJANDRO, DR ALLEY Beasley [...] Physician Katelyn Kaufman MD Primary Care Provider [phone] Jatin Hayden Attending Provider Jatin Hayden Admitting Unavailable Jatin Hayden Attending Unavailable Jas Kelly Admitting Unavailable Jas Kelly Attending Unavailable Katelyn Kaufman Primary Care Unavailable JATIN HAYDEN Attending Unavailable KATELYN KAUFMAN Referring Unavailable JATIN HAYDEN Attending Unavailable Satinder Gamino Attending Unavaila Josseline Cutler Attending Unavailable Josseline Diggs Attending Unavailable Hayes BOLDEN Attending Unavailable Katelyn Kaufman Referring Unavailable Hayes BOLDEN Attending Unavailable Josseline Diggs Admitting Unavailable Josseline Diggs Attending Unavailable Josseline Diggs Referring Unavailable KATELYN KAUFMAN Referring Unavailable FAWAD PACHECO Attending Unavailable FAWAD PACHECO Admitting Unavailable Doroteo Ortiz Jr, V Attending UnavailRyan Rangel Jrolph Kristel Referring UnavailKatelyn Ray Primary Care Unavailable Angel Ulrich MD, Doroteo Unavailable Unavailab le Allergies Allergy ClassificationReported Allergen(s)Allergy TypeDate of OnsetReaction(s) Facility (11 sources)levoFLOXacin; Translations: [levofloxacin]Drug Dkcwjny23-12-3474 Muscle pain (finding), [facility] [place] (9 sources)Non-steroidal anti-inflammatory agent; Translations: [NSAIDs] Propensity to adverse kfueleacu73-98-5841TS intoleranceNOCA Healthcare (7 sources)Sucralfate; Translations: [sucralfate]Drug Bzxzcji56-37-3040VB intoleranceNOCA Healthcare (5 sources)Dicyclomine; Translations: [dicyclomine]Drug Gfxwlhg76-92-4452 Abdominal pain (finding)[facility] (5 sources)Famotidine; Translations: [famotidine]Drug Cdmtwfc89-45-9413Nzgwzwmhb pain (finding)[facility] (5 sources)Hyoscyamine; Translations: [L-hyoscyamine]Drug Sylqjdq21-01-9678 Abdominal pain (finding)[facility] (4 sources)Metoclopramide; Translations: [metoclopramide]Drug AllergyDyssomnia (disorder), Chest pain (finding)[facility] (3 sources)Sucralfate; Translations: [sucralfate]Drug Ujkmmta74-60-0751 Constipation (disorder)[facility] (1 source)Metoclopramide; Translations: [METOCLOPRAMIDE HCL]Drug Allergy 95-38-5547GkbmwthomePomerene Hospital Repository (1 source)NSAIDs; Translations: [NSAIDS (NON-STEROIDAL ANTI-INFLAMMATORY DRUG)] Propensity to adverse reactions to drug (disorder)39-25-0090WpxdiwqmxfPomerene Hospital Repository Medications Current Medications MedicationDrug Class(es)DatesSig (Normalized)Sig (Original)cefdinir (1 source)Cephalosporin AntibacterialStart: 91-47-7679qatkhovj See Instructions, unsure of dosage, takes 1 by mouth BID Oral, Refills(s) 0 Start Date: 04/12/24 Status: Ordereddexlansoprazole 30 mg delayed release oral capsule (2 sources)Proton Pump InhibitorStart: 20-16-0129blbr 1 capsule by mouth once dailyDexilant 30 mg oral delayed release capsule 30 mg = 1 cap(s), Oral, Daily, # 30 cap(s), Refills(s) 0, Pharmacy: [facility], 157.4, cm, 03/22/24 12:37:00 EST, Height/Length Dosing, 70.1, kg, 03/22/24 12:37:00 EST, Weight Dosing Start Date: 03/22/24 Status: Orderedhyoscyamine sulfate 0.125 mg oral tablet (8 sources)Start: 24-81-4854cdqn 1 tablet by mouth every four hourshyoscyamine 0.125 mg oral Tab = 1 tab(s), Oral, q4hr, Refills(s) 0 Start Date: 03/22/24 Status: OrderedStart: 38-60-1265qfqa 1 tablet under the tongue every four hours as neededhyoscyamine (Anaspaz) 0.[address] 0.125 mg under the tongue every 4 (four)hours if needed 11/29/2023 ActiveStart: 68-12-2312gltu 1 tablet by mouth every four hours as needed for painhyoscyamine 0.125 mg oral Tab 0.125 mg = 1 tab(s), Oral, q4hr, PRN abdominal pain, Refills(s) 0 Start Date: 11/03/23 Status: Orderedondansetron 4 mg disintegrating oral tablet (8 sources)Serotonin-3 Receptor AntagonistStart: 18-27-6444pclz 1 tablet by mouth three times daily as needed for nauseaondansetron 4 mg Dis Tab 4 mg = 1 tab(s), Oral, TID, PRN Nausea/Vomiting, Refills(s) 0 Start Date: 11/03/23 Status: Orderedtake 1 tablet by mouth every eight hours as needed for nauseaondansetron ODT (Zofran-ODT) 4 MG disintegrating tablet Take 4 mg by mouth every 8 (eight) hours ifneeded for nausea Activepantoprazole 40 mg delayed release oral tablet (9 sources)Proton Pump InhibitorStart: 29-62-6551Fyilkcgx 40 mg Tab-DR = 1 tab(s), Oral, Daily, Refills(s) 0, Control of stomach acid Start Date: 03/22/24 Status: OrderedStart: 04-89-1516okdm 1 tablet by mouth once dailyProtonix 40 mg Tab-DR 40 mg = 1 tab(s), Oral, Daily, Refills(s) 0 Start Date: 11/03/23 Status: OrderedMiralax (1 source)Osmotic LaxativeStart: 11-50-8449SawxHlm 1 packet(s), Oral, Daily, Refill(s) 0 Start Date: 04/12/24 Status: Ordered Problems Active Problems Problem ClassificationProblemDateDocumented DateEpisodic/ChronicAbdominal pain (20 sources)Left lower quadrant pain; Translations: [Periumbilical pain]Onset: 53-29-0678KieozpusUllbens tract disease (2 sources)Disease of biliary tract, unspecified; Translations: [Disease of biliary tract, unspecified]Onset: 14-59-8819GhshtfkIwkxojc tract disease (2 sources)Biliary dyskinesia; Translations: [Other specified diseases of gallbladder]35-32-6195DzudcilgZdymzknlptauww and diverticulitis (4 sources)Diverticulosis of sigmoid urxri32-80-3992YsnxaklMwmwbkuilq disorders (7 sources)Gastroesophageal reflux disease without esophagitis; Translations: [Gastro-esophageal reflux disease without esophagitis]Onset: 72-55-3849Dtokbug Gastrointestinal hemorrhage (5 sources)Hemorrhage of rectum and anus; Translations: [Hemorrhage of anus and rectum]Onset: 47-52-9132SdhxwhowWsukauyjssqaaj (10 sources)Unilateral primary osteoarthritis, right knee; Translations: [Primary osteoarthritis of right knee]ChronicOsteoporosis (4 sources)Ylmfptrazogb01-46-8743CcshdrvHywmw and unspecified benign neoplasm (4 sources)Lipoma of jbph69-83-0107JogrciwkAilxr connective tissue disease (4 sources)Presence of left artificial knee joint; Translations: [History of arthroplasty of left knee]ChronicOther connective tissue disease (4 sources)Presence of right artificial knee joint; Translations: [History of arthroplasty of right knee]ChronicOther connective tissue disease (2 sources)Presence of artificial knee joint, bilateralChronicOther gastrointestinal disorders (5 sources)Irritable bowel syndrome characterized by constipation; Translations: [Irritable bowel syndrome with constipation]Onset: 94-67-2397VmysotcZimxi gastrointestinal disorders (5 sources)Burping; Translations: [Eructation]Onset: 02-42-8278QmcxjaxhKjqdv gastrointestinal disorders (2 sources)Digestive system finding; Translations: [Other specified symptoms and signs involving the digestivesystem and abdomen]Onset: 68-08-8448MxsmuauyLwvtp gastrointestinal disorders (3 sources)Defecation pbsescuzu37-01-5952PncojgamJtpud nutritional; endocrine; and metabolic disorders (1 source)Obesity, unspecified; Translations: [OBESITY UNSPECIFIED]Onset: 64-69-2892LcjyiwvYcuae nutritional; endocrine; and metabolic disorders (1 source)Body mass index (BMI) 31.0-31.9, adult; Translations: [BODY MASS INDEX BMI 31.0-31.9 ADULT]Onset: 36-96-8098NklvtflNbtve nutritional; endocrine; and metabolic disorders (4 sources)Mvpgctgkxk26-87-2675SfktwxcxHkqkv nutritional; endocrine; and metabolic disorders (4 sources)Overweight in adulthood with body mass index of 25 or more but less than 3409-99-7829LutafgczAnqzs screening for suspected conditions (not mental disorders or infectious disease) (4 sources)Encounter for screening mammogram for malignant neoplasm of breast; Translations: [ENC SCR MAMMO MALIG NEOPLASM BREAST]Onset: 37-41-3282Hwnqbkzw Peripheral and visceral atherosclerosis (2 sources)Chronic vascular disorders of intestine; Translations: [Chronic vascular disorders of intestine]Onset: 65-97-1006PfyctawEzdhxhda codes; unclassified (1 source)Family history of malignant neoplasm of digestive organs; Translations: [FAM HX MALIG NEOPLASM DIGESTIV ORGN]Onset: 23-67-6337Bwedtbhm Residual codes; unclassified (2 sources)Family history of malignant neoplasm of digestive organ; Translations: [Family history of malignantneoplasm of digestive organs]Onset: 01-50-6422QlbzysrfYuybiyzf codes; unclassified (1 source)FH: Gastrointestinal disease; Translations: [Family history of other diseases of the digestive system]Onset: 04-33-2110HivdmmjkTmltqijj codes; unclassified (2 sources)Acquired absence of organ; Translations: [Acquired absence of other specified parts of digestive tract]Onset: 45-13-1821HujixotyFplzyzxs codes; unclassified (3 sources)Family history of cancer of yguwg30-24-2163OrwgvadyTsssgvgwdjjj (1 source)PERSONAL HISTORY OF COVID-19; Translations: [PERSONAL HISTORY OF COVID-19]Onset: 11-35-4540Wxwllupwjayg (1 source)CONTACT W/AND (SUSP) EXPOS COVID-19; Translations: [CONTACT W/AND (SUSP) EXPOS COVID-19]Onset: 32-53-5035Jswaeatlanaf (4 sources)Irreducible left inguinal rddbom15-39-1855Njfajjvmjclt (4 sources)Left femoral eghdhr12-14-4072Ufywior tract infections (4 sources)Acute etvvsucs13-82-9548Yuqfslcg Past or Other Problems Problem ClassificationProblemDateDocumented DateEpisodic/ChronicAbdominal hernia (5 sources)Unilateral inguinal hernia, without obstruction or gangrene, not specified as recurrent; Translations: [Unilateral femoral hernia, with obstruction, without gangrene, not specified as recurrent]Onset: 09-04-2020 EpisodicE Codes: Natural/environment (1 source)Bitten by dog, initial encounter; Translations: [BITTEN BY DOG INITIAL ENCOUNTER]Onset: 44-18-8288DrdhhtaiAqbdqvmltmuzv and screening for infectious disease (1 source)Encounter for immunization; Translations: [ENCOUNTER FOR IMMUNIZATION] Onset: 58-48-6663TdgroomlDsyg wounds of extremities (4 sources)Open bite of left hand, initial encounter; Translations: [OPEN BITE LEFT HAND INITIAL ENC]Onset: 35-79-5970GprrbrwwSvym wounds of extremities (1 source)Open bite of right hand, initial encounter; Translations: [OPEN BITE RIGHT HAND INITIAL ENC]Onset: 32-35-3779AsldmmodJxhzb connective tissue disease (4 sources)Pain in right finger(s); Translations: [PAIN IN RIGHT FINGERS]Onset: 72-47-6848IbumkmqwRvfgw gastrointestinal disorders (1 source)Other intra-abdominal and pelvic swelling, mass and lump; Translations: [OTH INTRA-ABD PELV SWELL MASS LUMP]Onset: 25-73-0300Ojwsibkw Spondylosis; intervertebral disc disorders; other back problems (1 source)Sciatica, left side; Translations: [Sciatica, left side]Onset: 27-51-5876WxcrvswbEqwehdafyqf injury; contusion (5 sources)Other superficial bite of left forearm, initial encounter; Translations: [Other superficial bite ofright forearm, initial encounter]Onset: 56-13-2397IlanhzdqIautcnfidlch (4 sources)Patient encounter kudnlm53-20-9941Psbwxkmwtxtr (4 sources)Severe acute respiratory syndrome coronavirus 2 cylbjlsq08-60-0121 Unclassified (3 sources)Family history of awctwdqaathnvxs09-24-0486 Results Test NameValueInterpretationReference RangeFacilityHISTOLOGY - TISSUE EXAMon 26-85-6435MWM AP ASR DISCLAIMERThe interpretation of this case included the use of immunohistochemistry or special stains. These tests have not been cleared or approved by the U.S. Food and Drug Administration. The FDA has determined that such clearance or approval is not necessary. These tests are used for clinical purposes andshould not be regarded as investigational or for research. This laboratory is certified to perform high complexity testing under the Clinical Laboratory Improvement Amendments of 1998.[facility] HospitalComment on above:Performed By: #### [id number] #### [facility] ([facility]) [address] [place], [place] [address]IKS AP CASE REPORTNormalUniversCleveland Clinic Foundation Comment on above:Result Comment: Surgical Pathology Case: [id number] Authorizing Provider: Fawad Pacheco MD Collected: 05/10/2024 0827 Ordering Location: Shefali Bolaños Received: 05/10/2024 1153 [facility] Pathologist: Elena Oakley MD Specimens: A) - Small Intestine, Duodenum, r/o duodenal B) - Gastric, r/o h. pyloriPerformed By: #### [id number] #### [facility] ([facility]) [address] [place], [place] [address]KMN AP CLINICAL INFORMATIONOrder DiagnosesNormalUniOhioHealth Nelsonville Health CenterComment on above:Result Comment: K83.9 - Bile leak [ICD-10-CM] R10.11 - RUQ abdominal pain [ICD-10-CM] K55.1 - Intestinal angina [ICD-10-CM]Performed By: #### [id number] #### [facility] ([facility]) [address] [place], [place] [address]ART AP GROSS DESCRIPTIONNormalUniOhioHealth Nelsonville Health CenterComment on above:Result Comment: A. Small Intestine, Duodenum. The specimen is received in formalin labeled Shanique Canter and duodenum tissue. It consists of 6 pieces of her-pink irregular mucosal tissue ranging from 0.2 cm to 0.4 cm in greatest dimension. Thespecimen is submitted in toto in 1 cassette. Candis Mckenna, Pathologists' Air Value Tester student Abdirahman Chambers, Pathologists' Air Value Tester B. Gastric. The specimen is received in formalin labeled Shanique Canter and gastric tissue. It consists of 7 pieces of her-pink irregular mucosal tissue ranging from 0.2 cm to 0.5 cm in greatest dimension. The specimen is submitted in toto in 1 cassette. Candis Mckenna, Pathologists' Air Value Tester student Abdirahman Chambers, Pathologists' AssistantPerformed By: #### [id number] #### [facility] ([facility]) [address] [place], [place] [address]SJR AP MICROSCOPIC DESCRIPTIONMicroscopic examination performed. [facility] HospitalComment on above:Performed By: #### [id number] #### [facility] ([facility]) [address] [place], [place] [address]CRH AP REPORT FINAL DIAGNOSIS NARRATIVENormalUniversity of Adventhealth Rollins BrookComment on above:Result Comment: A. Small bowel, duodenum, biopsy: - Duodenal mucosa with features suggestive of peptic injury. - No features of celiac disease noted. B. Stomach, biopsy: - Chronic gastritis with reactive changes. - Immunostain for Helicobacter pylori is negative. - No evidence of intestinal metaplasia or dysplasia. Performed By: #### [id number] #### [facility] ([facility]) [address] [place], [place] [address]ARze 88-13-9545LJZasgspz Of Present Illness Shanique Camargo is a [...] and endoscopic ultrasound to assess the pancreaticobiliary system.NormalUnPomerene HospitalPOCT GLUCOSE METER UNSOLICITED RESULTSon 77-73-2874Fnvvers [Mass/Vol]101 mg/kTSxpmir95-261IkcssotsgyPomerene HospitalComment on above:Order Comment: Waived Testing in the ED is performed under the ED CLIA certificate #[id number].Result Comment: [email or web address] Performed By: #### [id number] #### [facility] ([facility]) [address] [place], [place] [address]Cixm for Procedureon 47-67-8725Gyie for [id number] Shanique Camargo 1955 F Date Provider Department Center 05/01/2024 FAWAD [facility] No family history on fileNormalUniversity of Adventhealth Rollins BrookAmbulatory Visit Summaryon 61-25-1189Swwfnojdwx Visit SummaryAmbulatory Visit Summary SHANIQUE CAMARGO :1955 Visit Date:04/12/2024 Ambulatory Visit Instructions Your Diagnosis Abdominal pain GERD (gastroesophageal reflux disease) Family history of colon cancer Irritable bowel syndrome with constipation Belching Straining during bowel movements Bleeding per rectum S/P cholecystectomy Your Care Team Attending Physician - Dontae DA SILVA, Josseline Lorenzo Primary Care Physician - Katelyn Kaufman MD [...] takes 1 by mouth BID Oral Contact prescribingphysician if questions or concerns Unchanged pantoprazole (Protonix [...] you for choosing us for your care. [facility] HospitalGastroenterology Office/Clinic Noteon 34-80-7305Ecyhwbtvvnzdqacv Office/Clinic NoteGastroenterology Office/Clinic Note Chief Complaint follow up to [...] having the bleeding, she did not know ifthere was anything else. Still having abdominal pain. [...] Daily, # 30 cap(s), Refills(s) 0, Pharmacy: [facility], 157.4, cm, 03/22/24 12:37:00 EST, Height/Length [...] POLYPECTOMY: ??? TUBULAR ADENOMA. EGD w/ Dr Bolden 11/24/23 Normal EGD. NM hepatobiliary wo pharm [...] Neutrophils Percent Auto: 61.7 (more content not included)...[facility] HospitalComment on above: Result Comment: Electronically Signed By: Dontae DA SILVA, Josseline Lorenzo\.br\Date and Time Signed: 04/12/2512:50 ESTRjanae 22-96-0159SvntwdamtHexwgzwls From: Juliet Vang MA To: [facility] - Reminders/Recalls; Sent: 04/11/2024 10:38:54 EST Show up: 02/22/2027 10:38:00 EST Subject: Ambulatory Reminder Due Date/Time: 03/29/2027 10:38:00 EST Reminder/Recall Colon recall [address] Diggs 03/29/24NoWVUMedicine Barnesville Hospitalurgical Pathology Reporton 04-03-2024 [address] [address]- Surgical Pathology Report Collected Date/Time: 03/29/2024 10:22 EST Pathologist: Zechariah DA SILVA PhD, Vee Miller Received Date/Time: 03/29/2024 11:53 EST Josseline Diggs MD, MD, Mohamad A. 07 Surgical Pathology Report - 04/03/2024 10:03 EST [...] Entire specimen submitted in one cassette. () [facility] Microscopic Description Microscopic examination performed unless gross only specified. This report was transcribed using voice recognition technology and might contain unintended computerized attending anesthesiologist errors.[facility] HospitalComment on above:Performed By: #### [id number] #### [facility] [address] [place] [address]Bvak OR Intraoperative Recordon [id number] OR Intraoperative RecordMain OR Intraoperative Record IntraOp Document Type FT Summary Primary Physician: Josseline Diggs MD Finalized Date/Time: 03/30/24 11:33:38 Pt. Name: CYRILRUPERTSHANIQUE D.O.B./Sex: 1955 Female Med Rec #: [id number] Physician: Josseline Diggs MD Financial #: [id number] Pt. Type: O Room/Bed: / Admit/Disch: 03/29/24 [...] Entry 2 Entry 3 Case Attendee Jer HEAVY EQUIPMENT SERVICE MANAGER, Josue Shabazz, Laura Guevara HEALTHCARE INTERPRETER, Suma Whiting Role Performed HEAVY EQUIPMENT SERVICE MANAGER Scrub - Primary Staff - Other Time [...] RN, Kala Role Performed Surgeon - Primary Diving Supervisor - Primary Time In 03/29/24 10:12:00 03/29/24 10:12:00 Time Out 03/29/24 10:33:00 03/29/24 10:33:00 Procedure COLONOSCOPY(.) COLONOSCOPY(.) Comments Last Modified By: Jules RN, Kala Vicente RN, Kala 03/29/24 10:33:44 03/29/24 10:33:44 Perioperative Protocols FT [...] Randle CRNA, Given Participants Laura Shabazz, Paola HEALTHCARE INTERPRETER, Dontae Hong MD, Josseline Lorenzo, Kala Vicente [...] and tissue Entry 1 Skin Integrity Intact, Mescal, Warm, & Skin Abnormality No Dry Outcomes Met? Yes Last Modified By: Kala Vicente RN 03/29/24 10:17:53 Post-Care Text: The patient is free from signs and symptoms of injury caused by extraneous objects Patient Positioning FT Pre-Care Text: Identifies physical alterations that require additional precautions for procedure-specific positioning, verifies presence of prosthetics or corrective devices, positions the pat (more content not included)...[facility] HospitalDischarge Instructions on 08-76-6354Vvzapgghf InstructionsDischarge Instructions SHANIQUE CAMARGO :1955 Visit Date:03/29/2024 Inpatient [...] Follow-Up Appointments Wednesday 1:30 PM EST With: Josseline Diggs MD Where: [facility] [address] [address]- New Follow Up Appointments after Discharge Follow Up with Dontae DA SILVA, Josseline Lorenzo, [facility], [facility] When: Comments: office will call for follow up Where: [address], [address] [place] [phone] Medications What How Much When Why Instructions [...] on [facility] Your doctor may also give you [...] doctor tells you ot (more content not included)...NormalTwin City HospitalComment on above:Result Comment: Electronically Signed By: Donavon GARCIA, Roxie\.br\Date and Time Signed: 03/29/24 10:51 ESTH&P Updateon 03-29-2024H&P UpdateH&P Update Patient: SHANIQUE CAMARGO Age: 68 years [...] 09:46) Heart Rate Monitored 83 bpm (MAR 29:46) SBP 134 mmHg (MAR 29:46) DBP H 90 mmHg (MAR 29:46) Weight 70.1 kg (MAR 29 09:46) General: in Nad Abdomen: Soft, NTND Impression and Plan Diagnosis: Rectal bleeding -colonoscopyNormalTwin City HospitalMain OR PACU II Recordon 03-29-2024 Main OR PACU II RecordMain OR PACU II Record PACU Phase II Document Type FT Summary Primary Physician: Josseline Diggs MD Finalized Date/Time: 03/29/24 11:20:01 Pt. Name: SHANIQUE CAMARGO /Sex: 1955 Female Med Rec #: [id number] Physician: Josseline Diggs MD Financial #: [id number] Pt. Type: O Room/Bed: / Admit/Disch: 03/29/24 [...] and monitors body temperature Evaluates postoperative respiratory statusEvaluates postoperative cardiac status Evaluates postoperative neurological status [...] individualized perioperative plan of care The patient's rightto privacy is maintained The patient's value system, [...] with or improved from baseline levels established preoperativelyThe patient's cardiovascular status is consistent with or improved from baseline levels established preoperatively The patient's neurological status is consistent with or improved from baseline levels established preoperatively The patient demonstrates and/or reports adequate pain control throughout the perioperative period The patient received appropriate medication(s), safely administered during the perioperativeperiod Finalized By: Roxie Raphael RN Document Signatures Signed By: Roxie Raphael RN 03/29/24 11:20NormalTwin City HospitalMain OR Preoperative Recordon 50-80-4159Xtgx OR Preoperative RecordMain OR Preoperative Record Holding Area Document Type FT Summary Primary Physician: Josseline Diggs MD Finalized Date/Time: 03/29/24 09:50:24 Pt. Name: SHANIQUE CAMARGO Paul Ac/Sex: 1955 Female Med Rec #: [id number] Physician: Josseline Diggs MD Financial #: [id number] Pt. Type: O Room/Bed: / Admit/Disch: 03/29/24 [...] or her perioperative plan of care The patient'sright to privacy is maintained Surgery Checklist FT [...] Signatures Signed By: Brianna Moyer RN 03/29/24 09:50NoParkview HealthOperative Reporton [id number] ReportOperative Report Patient: SHANIQUE CAMARGO Age: 68 years Sex: Female : 1955 Associated Diagnoses: None Author: Josseline Diggs MD Pre-Procedure Procedure Date 03/29/2024 10:34:00 . Procedure Type: Colonoscopy with removal of tumor(s), polyp(s), or other lesion(s) by cold snare technique. Procedure provider Performed by Josseline Diggs MD. Current history and physical Documented on chart. Gallbladder ([id number]) on 12/14/2023 at 67 Years. Comments: 03/22/2024 12:33 Carin Toro EGD - esophagogastroduodenoscopy ([id number]) on 11/24/2023 at 67 Years. Repair of left inguinal hernia ([id number]) on 09/04/2020 at 64 Years. Colonoscopy and biopsy of colon ([id number]) on 04/21/2019 at 63 Years. Comments: 04/26/2019 13:24 Polo Wolf Hyperplastic polyp Colonoscopy normal ([id number]) on 02/23/2004 at 48 Years. Total abdominal hysterectomy ([id number]). Bilateral replacement of knee joints ([id number]). Release of carpal tunnel for median nerve decompression (55847236). Tonsillectomy, primary or secondary; younger than age 12 (12989).. Past Medical History Resolved Encounter for screening colonoscopy ([id number]): Resolved. Cystitis, acute (874015523): Resolved. COVID-19 virus detected (6569149184): Resolved. FH: cholecystectomy (0574667754): Resolved.. Family History Primary malignant neoplasm of colon Mother Hypertension Mother COPD Father Mother . Procedure History Gallbladder ([id number]) on 12/14/2023 at 67 Years. Comments: 03/22/2024 12:33 EST - Carin Knight A removal EGD - esophagogastroduodenoscopy ([id number]) on 11/24/2023 at 67 Years. Repair of left inguinal hernia ([id number]) on 09/04/2020 at 64 Years. Colonoscopy and biopsy of colon ([id number]) on 04/21/2019 at 63 Years. Comments: 04/26/2019 13:24 EST - Polo Rivera Hyperplastic polyp Colonoscopy normal ([id number]) on 02/23/2004 at 48 Years. Total abdominal hysterectomy ([id number]). Bilateral replacement of knee joints (4981056419). Release of carpal tunnel for median nerve decompression (70906359). Tonsillectomy, primary or secondary; younger than age 12 (49460).. Colorectal neoplasm risk assessment Average risk. Informed [...] Oral, Daily, # 30 cap(s), Refills(s)0, Pharmacy: [facility], 157.4, cm, 03/22/24 12:37:00 EST, Height/Length [...] the left lateral decubitus position. Endoscope type usedwas an adult-size. The endoscope was lubricated then introduced through the anus. The scope was advanced to the terminal ileum. No difficulties encountered during the procedure. The bowel preparationquality was good and was adequate (see polyps [...] 7. Normal Terminal ileum Images Procedure images: Rec1_hd_video_2024__T10_43_32_503.jpg Rec1_hd_video_2024__T10_42_05_309.jpg Rec1_hd_video_2024__05T10_39_42_771.jpg Rec1_hd_video__T10_37_53_361.jpg Rec1_hd_video_2024__05T10_38_59_368.jpg Rec1_hd_video__T10_36_35_151.jpg Rec1_hd_video_2024__05T10_35_35_946.jpg (Inserted (more content not included)...[facility] HospitalComment on above:Result Comment: Electronically Signed By: Dontae DA SILVA, Josseline Lorenzo\.br\Date and Time Signed: 03/29/2509:36 ESTOther Comment: Missing Attachment - attachment storage system not supported [id number] Can be viewed in source system Missing Attachment - attachment storage system not supported [id number] Can be viewed in source systemMissing Attachment - attachment storage system not supported [id number] Can be viewed in source systemMissing Attachment - attachment storage system not supported [id number] Can be viewed in source systemMissing Attachment - attachment storage system not supported [id number] Can be viewed in source systemMissing Attachment - attachment storage system not supported 6449425 Can be viewed in source systemMissing Attachment - attachment storage system not supported 4966038 Can be viewed in source systemMissing Attachment - attachment storage system not supported 2413840 Can be viewed in source system Missing Attachment - attachment storage system not supported 7980210 Can be viewed in source systemMissing Attachment - attachment storage system not supported 1130566 Can be viewed in source systemAmbulatory Visit Summaryon 49-82-3741Eglhxlmkei Visit SummaryAmbulatory Visit Summary SHANIQUE CAMARGO :1955 Visit Date:03/22/2024 [...] With: Dontae DA SILVA, Josseline Lorenzo Where: [facility] [address] [facility] [address] [place] [address]- Medications What How Much When Why Instructions New dexlansoprazole (Dexilant 30 mg oral delayed release capsule) 1 Capsules By Mouth Every day Abdominal pain GERD (gastroesophageal reflux disease) Family history of colon cancer Irritable bowel syndrome with constipation Belching Pickup at [facility] Unchanged hyoscyamine (hyoscyamine 0.125 mg oral [...] physician if questions or concerns Pharmacy Information [facility]: [address] [place], [place] [id number] [phone] Allergies Reglan (Sleep disturbance, Chest pain) dicyclomine [...] you for choosing us for your care. [facility] HospitalGastroenterology Office/Clinic Noteon 24-99-7411Ugxwzqcrlpzgvbtd Office/Clinic NoteGastroenterology Office/Clinic Note Chief Complaint Patient c/o change [...] states that when she asked about repeat colonoscopy,she was advised to recheck in 10 years. [...] HEENT: atraumatic normocephalic Cardiovascular: (more content not included)...[facility] Comment on above:Result Comment: Electronically Signed By: Dontae DA SILVA, Josseline Lorenzo\.br\Date and Time Signed: 03/22/2512:09 ESTLon 26-13-9073IEwzyfafl: [id number] Received: 12/16/23 Status: LUIS Mitchell Num: [id number] Spec Type: Surgical Subm Dr: Jatin Hayden DO Tissues: A Gallbladder (GB) Procedures: HE, Gross/Micro L3 Age/ Patient Sex Location Account Attending Physician RamanShanique Paul 67/F LABELL [id number] Jatin Hayden DO SPEC NUM: [id number] RECD: 12/16/23 STATUS: LUIS MITCHELL NUM: [id number] ROSENDO: 12/14/[address]: Jatin Hayden DO ENTERED: 12/16/[address] [facility] DR: Javed,Lab SPEC TYPE: Surgical DEPT: KATY SHETTY ENTERED BY: [id number] RECV BY: [id number] ORDERED: HE, Gross/Micro L3 ORDERED: HE, Gross/Micro [...] The mucosal surface is green and velvety. Senior Hardware Design Engineer sections are submitted in cassette A1. Microscopic Description Microscopic examination is performed. Specimen: [id number] Received: 12/16/23 Status: LUIS Mitchell Num: [id number] Spec Type: Surgical Subm Dr: Jatin Hayden DO Tissues: A Gallbladder (GB) Procedures: Debo SALGUERO/Crystal L3 Patient: Shanique Camargo [id number] (Continued) Specimen: [id number] Received: 12/16/23 (Continued) Signed (signature on file) Nghia Ramirez MD 12/21/23 1056 Specimen: [id number] Received: 12/16/23 Status: LUIS Mitchell Num: [id number] Spec Type: Surgical Subm Dr: Jatin Hayden DO Tissues: A Gallbladder (GB) Procedures: Debo SALGUERO/Crystal L3 Patient: Shanique Camargo [id number] (Continued) Specimen: [id number] Received: 12/16/23 (Continued) CPT Codes 85071 Specimen: [id number] Received: 12/16/23 Status: LUIS Mitchell Num: [id number] Spec Type: Surgical Subm Dr: Jatin Hayden DO Tissues: A Gallbladder (GB) Procedures: NICO, Debo/Crystal L3 Patient: Shanique Camargo [id number] (Continued) Signed (signature on file) Nghia Ramirez MD 12/21/23 1056Normal [facility] Physician GroupAmbulatory Visit Summaryon 63-22-1326Zgkudcpwdf Visit SummaryAmbulatory Visit Summary SHANIQUE CAMARGO :1955 Visit Date:11/16/2023 [...] you for choosing us for your care. [facility] HospitalMG MAMM SCREEN 3D TERA CADon 49-28-5551VY MAMM SCREEN 3D TERA CADPatient: SHANIQUE CAMARGO Exam Date: 07/04/2021 : 1955 Gender:F Ordering : DR KATELYN KAUFMAN . Admission #: [id number] Family : Order #: [id number] CLICK HERE TO VIEW EXAM RADIOLOGY REPORT [...] colon cancer at age 70. LOCATION: [facility] BREAST COMPOSITION: Almost entirely [...] by: Edmond Caal MD on 07/04/2021 at 15:03[facility] Covid-19 PCR (CVDTBH)on 06-10-0562SYHS-CoV-2 (COVID-19) RNA JESSENIA+probe Ql (Unsp spec)Not detectedNormalNOT DETECTEDThe [facility] CenterComment on above:Result Comment: This test is not yet approved or cleared by the [place] FDA. When there are no FDA-approved or cleared tests available, and other criteria are met, FDA can make tests available under an emergency access mechanism called an Emergency Use Authorization (EUA). The EUA for this test is supported by the Field Staff Manager of Health and Human Service's (HHS's) declaration [...] of clinical signs and symptoms consistent with SARS-CoV-2.Performed By: #### CVDTBH #### [facility] [address] [place] [address] Josef Salgado 87-12-0895Cgkjqeoytai peptide B (Bld) [Mass/Vol]168.0 pg/mL Normal<=900.0The [facility] CenterComment on above:Performed By: #### BNP, CMP #### [facility] [address] [place] [address] Josef IbarraenCBC AUTO DIFFon 51-91-0382ZTTB #0.0 103/ulNormal0.0-0.1The [facility] HospitalComment on above:Performed By: #### CBC ####[facility] H[address] [place] [address]Olaohe KarenBasophils/100 WBC (Bld)0.6 %Normal0.2-2.0The [facility] CenterComment on above:Performed By: #### CBC ####[facility] Apfzmndc[address] [place], [place] [address]Gerken KarenEO #0.1 103/ulNormal0.0-0.7The [facility] CenterComment on above:Performed By: #### CBC ####[facility] Enndlwto[address] [place], [place] [address]Gerken KarenEosinophils/100 WBC (Bld)0.9 %Normal 0.9-7.0The [facility] CenterComment on above:Performed By: #### CBC ####[facility] F[address]meit[address] [place], [place] [address]Gerken Xiomara Erythrocyte distribution width (RBC) [Ratio]12.7 %Hhzeag45.0-15.0The [facility] CenterComment on above:Performed By: #### CBC ####[facility] Kuoc[address] [place], [place] [address]Gerken KarenHematocrit (Bld) [Volume fraction]40.3 %Aksnll05.0-48.0The [facility] CenterComment on above: Performed By: #### CBC ####[facility] Isbrboesai[address] [place], [place] [address]Gerken KarenHemoglobin (Bld) [Mass/Vol]12.9 g/dLNormal 12.0-16.0The [facility] CenterComment on above:Performed By: #### CBC ####[facility] Upctljvppx[address] [place], [place] [address]Gerken KarenIG #0.01 10e3/ulNormal0.00-0.03The [facility] CenterComment on above: Performed By: #### CBC ####[facility] Fuebayauhq[address] [place], [place] [address]Gerken KarenIG %0.1 %Normal0.0-0.5The [facility] CenterComment on above:Performed By: #### CBC ####[facility] I[address] [place], [place] [address]enMARGARETVILLE MEMORIAL HOSPITALH #2.4 103/ul Normal1.2-3.8The [facility] CenterComment on above:Performed By: #### CBC ####[facility] U[address] [place] [address] KarenLymphocytes/100 WBC (Bld)34.5 %Wmafhz10.5-60.0The [facility] CenterComment on above:Performed By: #### CBC ####[facility] [address] [place] [address] KarenMANUAL DIFF REQNONormalThe [facility] CenterComment on above:Performed By: #### CBC ####[facility] G[address] [place] [address] (RBC) [Entitic mass]30.0 ycHflwxv04.7-34.0The [facility] CenterComment on above: Performed By: #### CBC ####[facility] Rvzrsr[address] [place] [address] (RBC) [Mass/Vol]32.0 g/dLNormal 29.9-35.2The [facility] CenterComtrinity [facility] on above:Performed By: #### CBC ####[facility] L[address] [place] [address] (RBC) [Entitic vol]93.7 mIKlaruq43.0-99.0The [facility] CenterComment on above:Performed By: #### CBC ####[facility] S[address] [place] [address] KarenWESTERN MISSOURI MEDICAL CENTERO #0.7 103/ulNormal0.3-0.8The [facility] CenterComment on above:Performed By: #### CBC ####[facility] Sm[address] [place] [address] KarenMonocytes/100 WBC (Bld)9.3 %Normal1.7-12.0The [facility] CenterComment on above:Performed By: #### CBC ####[facility] Ujnapqubef[address] BeverlyUT #3.8 103/ulNormal1.4-6.5The [facility] CenterComment on above:Performed By: #### CBC ####[facility] G[address]zcolrere[address] KarenNeutrophils/100 WBC (Bld)54.6 %Normal 43.0-75.0The [facility] CenterComment on above:Performed By: #### CBC ####[facility] Gu[address]nx[address] KarenPlatelet mean volume (Bld) [Entitic vol]11.0 fLNormal9.5-13.5The [facility] CenterComment on above:Performed By: #### CBC ####[facility] Ulhtimsrsv[address] BezxkRTA891 103/ul Hgywvg211-316Env [facility] CenterComment on above:Performed By: #### CBC ####[facility] Jeyrujusve[address] KarenRBC4.30 106/ulNormal4.20-5.40The [facility] CenterComtrinity health [facility] on above: Performed By: #### CBC ####[facility] Ibq[address] [place] [address] KarenWBC7.0 103/ulNormal4.0-11.0The [facility] CenterComtr[facility] health [facility] on above:Performed By: #### CBC ####[facility] [address] [place] [address] KarenD-DIMERon 42-20-5879U-DIMER0.25 mg/L FEUNormal0.19-0.50The [facility] on above:Performed By: #### DDIM #### [facility] [address] KarenD-DIMER COMMENTSSEE BELOWNormalThe [facility] CenterComment on above:Result Comment: Increases in D-Dimer concentration observed with thromboembolic events [...] stress, and generalized hospitalization. Performed By: #### DDIM #### [facility] [address] [place] [address] Josef KarenPROF 14(COMP METB)on 00-67-5395Kgfbopv [Mass/Vol]3.8 g/dLNormal 3.5-5.0[address] HospitalComment on above:Performed By: #### BNP, CMP #### [facility] [address] [place] [address] Josef KarenAlbumin/Globulin [Mass ratio]1.2 {ratio}NormalWilson [address] Hospital Comment on above:Performed By: #### BNP, CMP #### [facility] [address] [place] [address] Josef KarenALP [Catalytic activity/Vol]81 U/KJqftag77-849WycWilson Street Hospital Comment on above:Performed By: #### BNP, CMP #### [facility] [address] [place] [address] Josef KarenALT [Catalytic activity/Vol]22 U/LNormal9-52The [facility] Comment on above:Performed By: #### BNP, CMP #### [facility] [address] [place] [address] Josef KarenAnion gap [Moles/Vol]11.9 mmol/LNormalWilson Street HospitalComment on above:Performed By: #### BNP, CMP #### [facility] [address] [place] [address] Josef KarenAST [Catalytic activity/Vol]18 U/VCovhqh66-52WbfWilson Street Hospital Comment on above:Performed By: #### BNP, CMP #### [facility] [address] [place] [address] Josef KarenBilirubin [Mass/Vol]0.4 mg/dLNormal0.2-1.3The [facility] Comment on above:Performed By: #### BNP, CMP #### [facility] [address] [place] [address] Josef KarenCalcium [Mass/Vol]8.7 mg/dLNormal8.4-10.2The [facility] Comment on above:Performed By: #### BNP, CMP #### [facility] [address] [place] [address] Josef KarenChloride [Moles/Vol]104 mmol/YWgucpv55-810Fkw [facility] Comment on above:Performed By: #### BNP, CMP #### [facility] [address] [place] [address] Josef KarenCO2 [Moles/Vol]29.1 mmol/XXmiorz92.0-30.0[facility] Comment on above:Performed By: #### BNP, CMP #### [facility] [address] [place] [address] Josef KarenCreatinine [Mass/Vol]0.59 mg/dLNormal0.52-1.04[facility] Comment on above:Performed By: #### BNP, CMP #### [facility] [address] [place] [address] Josef KarenEGFR-AF STATELESS>60Normal>=60The [facility] CenterComment on above: Performed By: #### BNP, CMP #### [facility] [address] [place] [address] Josef KarenEGFR-NON AF STATELESS>60Normal>=60The [facility] CenterComment on above:Performed By: #### BNP, CMP #### [facility] [address] [place] [address] Josef KarenGlobulin (S) [Mass/Vol]3.3 g/dLNormalThe [facility] CenterComment on above:Performed By: #### BNP, CMP #### [facility] [address] [place] [address] Josef KarenGlucose [Mass/Vol]72 mg/dLCritically ddd04-319Igf [facility] Comment on above:Performed By: #### BNP, CMP #### [facility] [address] [place] [address] Josef KarenPotassium [Moles/Vol]4.0 mmol/LNormal3.4-5.0[facility] Comment on above:Performed By: #### BNP, CMP #### [facility] [address] [place] [address] Josef KarenProtein [Mass/Vol]7.1 g/dLNormal6.1-8.2The [facility] CenterComment on above:Performed By: #### BNP, CMP #### [facility] [address] [place] [address] Josef KarenSodium [Moles/Vol]141 mmol/MPoszip157-740Ezb [facility] Comment on above:Performed By: #### BNP, CMP #### [facility] [address] [place] [address] Josef KarenUrea nitrogen [Mass/Vol]20.0 mg/dLCritically high7.0-17.0The [facility] CenterComment on above:Performed By: #### BNP, CMP #### [facility] [address] [place] [address] Josef KarenUrea nitrogen/Creatinine [Mass ratio]33.9 mg/mgNormalThe [facility] CenterComment on above:Performed By: #### BNP, CMP #### [facility] [address] [place] [address] Josef KarenCREATININEon 35-00-3170Qxanimoqtv [Mass/Vol]0.63 mg/dLNormal 0.52-1.04The [facility] CenterComment on above:Performed By: #### CREA #### [facility] [address] [place] [address] Josef KarenEGFR-AF STATELESS>60Normal>=60The [facility] CenterComment on above: Performed By: #### CREA #### [facility] [address] [place], [place] [address] Josef IbarraenEGFR-NON AF STATELESS>60Normal>=60[address] HospitalComment on above:Performed By: #### FUENTES #### [facility] [address] [place], [place] [address] Josef IbarraenCT PELVIS W CONon 29-42-3462RF PELVIS W CONEXAMINATION: CT PELVIS W CON HISTORY: Left lower [...] Electronically authenticated by: ALLEY ALLEN Date: 2020-07-25 14:11[facility] Vital Signs Date TimeVital SignValuePerforming YwvoymfqzJzwemqml73-49-7096 13:28-0500Blood Pressure RachelMomaine Diggs 813-1545Lgpjvf-FhgifSt. [facility] Hospital02-19-2025 13:28-0500Diastolic blood wjevjdnt56 mm[Hg]Josseline Diggs 047-0723Bpudnl-LgredSt. John Of God Hospital02-19-2025 13:28-0500Heart rate80 /minJosseline Diggs 616-9423Bgofxx-UrvbqSt. [facility] Of [facility] Hospital02-19-2025 13:28-0500Respiratory rate14 /minMohamad Mouchli 743-9271Zxdcnp-Riohr[address] [place], [place] 8800702-19-2025 13:28-0500Systolic blood mm[Hg]Mohamad Mouchli 864-2741Qfiwpf-Dvevj[address] [place], [place] 8800702-05-2025 11:05-0500Diastolic blood adhzhabm40 mm[Hg]Mohamad Mouchli [address] [place], [place] 238[address]2-05-2025 11:05-0500Heart rate80 /minMohamad Mouchli [address] [place], [place] 238[address]2-05-2025 11:05-0500 Respiratory rate18 /minMohamad Mouchli [facility]02-05-2025 11:05-6329AsT8% (BldA) [Mass fraction]94 %Mohamad Mouchli [facility]02-05-2025 11:05-0500 Systolic blood refewsqd645 mm[Hg]Mohamad Mouchli [facility]02-05-2025 10:50-0500 Diastolic blood pfpibjgn89 mm[Hg]Mohamad Mouchli [facility]02-05-2025 10:50-0500Heart rate65 /minMohamad Mouchli [facility]02-05-2025 10:50-0500 Respiratory rate20 /minMohamad Mouchli [facility]02-05-2025 10:50-7333FgB4% (BldA) [Mass fraction]96 %Mohamad Mouchli [facility]02-05-2025 10:50-0500 Systolic blood gyfmlwyd973 mm[Hg]Mohabbeyd Mouchli [address] [place], [place] 238[address]2-05-2025 10:40-0500 Diastolic blood ortlgzny36 mm[Hg]Mohamad Mouchli [address] [place], [place] 238[address]2-05-2025 10:40-0500Heart rate64 /minMohamad Mouchli [address] [place], [place] 238[address]2-05-2025 10:40-0500 Respiratory rate20 /minMohamad Mouchli [address] [place], [place] 238[address]2-05-2025 10:40-9487InV9% (BldA) [Mass fraction]97 %Mohamad Jeffuchli [address] [place], [place] 238[address]2-05-2025 10:40-0500 Systolic blood maijaeeh099 mm[Hg]Mohamad Mouchli [address] [place], [place] 238[address]2-05-2025 10:36-0500Body nevgsvygvtv50.88 [degF]Mohamad Mouchli [address] [place], [place] 238[address]2-05-2025 09:46-0500Blood Pressure LocationMohamad Mouchli [address] [place], [place] 238[address]2-05-2025 09:46-0500Body qlogbkbypun54.52 [degF]Mohamad Mouchli [address] [place], [place] 238[address]2-05-2025 09:46-0500 Respiratory rate16 /minMohamad Mouchli [address] [place], [place] 2383801-29-2025 12:43-0500Blood Pressure LocationMohamad Mouchli 742-6070Wsguep-NtnzxL[facility]ive Fccsly20-85-3996 12:43-0500Diastolic blood xpwfgmqe96 mm[Hg]Mohamad Mouchli 712-0184Dfyojc-SqyglSt. John Of God Hospital01-29-2025 12:43-0500Heart rate81 /minJosseline Diggs 646-5677Gyapoj-IgypfSt. John Of God Hospital01-29-2025 12:43-0500Systolic blood chawskkf621 mm[Hg]Josseline Diggs 187-2442Botkos-OwtssSt. John Of God Hospital11-04-2024 12:51-0500Body ohgbtm098.5 cmJatin Hayden DO Work Phone: 1([phone] [place], [place] [address]64[address]11-04-2024 12:51-0500Body mass index (BMI) [Ratio]27.62 kg/m2Jatin Vogelett DO Work Phone: 1(273)[address] [place], [place] [address]64[address]11-04-2024 12:51-0500Body atxrbw55.49 kgKyopal Hayden DO Work Phone: 1(187)[address] [place], [place] [address]64[address]11-04-2024 12:51-0500Diastolic blood vtzwvvxu16 mm[Hg]Jatin Hayden DO Work Phone: 1(141)[address] [place], [place] [address]64[address]11-04-2024 12:51-0500Heart rate83 /min Jatin Hayden DO Work Phone: 1(327)[address] [place] [address]-04-2024 12:51-0500Respiratory rate12 /minJatin Hayden DO Work Phone: 1(781)[address] [place] [address]-04-2024 12:51-6983MrE2% (BldA) [Mass fraction]96 %Jatin Nolberto DO Work Phone: 1(536)[facility] [place], [place] [address]Pmffcmuanw91-25-6687 12:51-0500Systolic blood mpgmgvuc170 mm[Hg]Jatin Nolberto DO Work Phone: 1(858)[address] [place], [place] [address]64[address]10-14-2024 10:57-0400Body .4 cmJatin Nolberto DO Work Phone: 1(804)[address] [place] [address]-14-2024 10:57-0400Body mass index (BMI) [Ratio]29.88 kg/m2Jatin Hayden DO Work Phone: [facility]Bar[facility] RoadOycwhrgwzs90-15-7984 10:57-0400Body coxouo31.4 kg Jatin Hayden DO Work Phone: NOFreeman Cancer InstituteItwbbrkfkh84-15-7704 10:57-0400Diastolic blood sbywyqxt76 mm[Hg]Jatin Hayden DO Work Phone: NOFreeman Cancer InstituteEbbeiuyqex65-69-5122 10:57-0400Systolic blood mjjogtev424 mm[Hg]Jatin Hayden DO Work Phone: [facility]–Bar[facility] RoadNoauswhgex63-20-7760 15:08-0400Blood Pressure LocationMichael NILL 831-1905Ueeqhi-Ixmnf General Surgery Dmgadbrl02-55-8449 15:08-0400Diastolic blood okcjgjsd75 mm[Hg]Hayes NILL 919-8135Kigmjg-Znjoz General Surgery Afaeopea11-49-4104 15:08-0400Heart rate70 /minMichael NILL 232-0767Wsdlfr-Mhjep General Surgery Ccnywceh08-47-0744 15:08-0400Respiratory rate16 /minMichael NILL 179-7818Tauvil-Ckotg General Surgery Koehslrt60-46-4867 15:08-0400Systolic blood ctsbfqfo684 mm[Hg]Hayes NILL 658-5435Mabyht-AoyjlSamaritan Hospital Encounters Encounter DateEncounter TypeCare ProviderFacilityStart: 12-12-2024 End: 51-85-6694Fhpvkcyei identifierAdolph Kristel Ortiz Jr Work Phone: JIS WellingtonStart: 29-70-8840cuhetyknuzTbaevn Kristel Ortiz JrJIS OrthopedicsStart: 05-10-2024 End: 53-47-9050tzneyqfvfcVIIDDKN [facility] Hospitaltart: 04-12-2024 End: 58-09-1062qkljhiyzqeGnfoepn A. MouchliFacility:Mer[facility] DHStart: 04-12-2024 End: 00-09-0086Ymchbmf encounter procedureMomaine Diggs 296-4690Lenvbr-AcvrbLakehealth [facility] Start: 03-29-2024 End: 18-61-5945romykwgrljHldbujf A. MouchliFacility:FTMCStart: 03-29-2024 End: 40-26-9747Jcguydy encounter procedureMomaine Diggs [facility] Start: 03-22-2024 End: 82-79-8577ebhrqnsmxeLihagiw A. MouchliFacility:[facility] DHStart: 03-22-2024 End: 62-40-1292Ljccawe encounter procedureJosseline Diggs [phone]-NfepiLakehealth [facility]wood [facility] Center [facility] Start: 52-14-2123jwoiosphmvRbxugcii Talal Sarmini Facility:[facility] DHStart: 11-60-2330usbwrbrthsPvucdbwe Sarmini Facility:[facility] DHStart: 12-27-2023 End: 12-60-7565Qmssjn flowsheetKyle Nolberto DO Work Phone: [facility] BW GENSStart: 12-27-2023 End: 22-34-4921Jeeskb flowsheetKyle Nolberto DO Work Phone: [facility] BW GENSStart: 12-27-2023 End: 98-47-5709Opzbsk follow up visit related to original pxKyle Nolberto DO Work Phone: [facility] BW GENSComment on above:Status post cholecystectomy (Primary Dx)Start: 12-27-2023 End: 86-08-9910oxskrtniosTVCW NOLBERTONot AvailableStart: 12-14-2023 End: 98-58-0381bszgolavlySirw [facility]olbertoL[facility] Work Phone: Start: 12-14-2023 End: 83-60-2743Pwpanwnz ReferredDO Jatin Hayden Work Phone: [facility]-LAB Path Spec [facility] HospStart: 12-06-2023 End: 05-77-4933Imhwov flowsheetaJtin Hayden DO Work Phone: [phone] BWM GENSStart: 12-06-2023 End: 47-39-4720Unozog flowsheetJatin Hayden DO Work Phone: [facility] BWM GENSStart: 12-06-2023 End: 61-14-8548Fwppnj outpatient new 45 minutesKyopal Hayden DO Work Phone: [facility] BWM GENSComment on above:Biliary dyskinesia (Primary Dx)Start: 12-06-2023 End: 64-66-7149riajwfxxalTUMT NOLBERTONot AvailableStart: 11-24-2023 End: 58-67-1256iwsdcfeusyXgcsyqd R NILLFacility:CD:[id number]: 11-16-2023 End: 08-56-0302atskhhllmjKcabuza R NILLFacility:GS BellevueStart: 11-16-2023 End: 74-49-5081Vooctln encounter procedureMichael R NILL 100-6395Oaujeh-Hzwfs General Surgery Javed Start: 09-14-2023 End: 67-97-3293qnfgtwnnvhEK Katelyn M Hoy Work Phone: [facility] Work Phone: Start: 09-14-2023 End: 99-87-8134Tutjjdnbfr RecurringMD Katelyn Hoy Work Phone: [facility]-Physical Therapy [place] CreekStart: 07-04-2021 End: 13-14-7456vlajwididaYV KATELYN HOYFacility:I8Jwsdx: 06-18-2021 End: 10-78-7992Ghewag outpatient new 30 minutesAdolph V Angel Ulrich Work Phone: JIS WellingtonStart: 03-10-2021 End: 41-24-3627fcieuwypjuNQ KATELYN HOMitaFacility:J5Lzojo: 97-13-2135Rbpgtibes for preprocedural laboratory examinationDR HAYES AUDInico Combs HospitalStart: 09-04-2020 End: 78-62-7638asvkfrjzwdEU MICHAEL NILLFacility:G6Kkyzm: 08-31-2020 End: 85-18-4745hymuawzwoyZW MICHAEL NILLFacility:F6Ieeet: 08-31-2020 End: 53-73-9891Ifyumjtti for preprocedural laboratory examinationDR HAYES BOLDEN Facility:O1Qcmrb: 97-40-6140Urjzwnmqd for preprocedural cardiovascular examinationDR HAYES [facility] HospitalStart: 08-22-2020 End: 55-84-4951gynedrsljaNG MICHAEL NILLFacility:D4Irwzu: 07-25-2020 End: 63-70-4824aaanvucfqdBD MICHAEL NILLFacility:Y1Mpjjj: 07-12-2020 End: 16-31-1923leixtezshxWV STEVEN R ZIEBERFacility:H1 Procedures DateProcedureProcedure DetailPerforming ClinicianStart: 06-17-0823Waeepikqxcf Josseline Diggs Comment on above:divertiulosis t/o colon, polyps x3, and large IHStart: 15-40-4691Uytihyulvdm structure (body structure)Josseline Diggs Comment on above:removalStart: 11-24-2023 EsophagogastroduodenoscopyJosseline Diggs Start: 06-18-2021 End: 66-72-7664Sytdlbyzlc examination knee 3 viewsAdolph Angel Ulrich MDStart: 05-37-7058Bzgbwt of left inguinal herniaMichael NILL Start: 62-62-9112Ctjbxqdkhuw and biopsy of colonMichael NILL Comment on above:Hyperplastic polypStart: 09-23-2016 MammographyKyopal Hayden DO Work Phone: start: 80-43-7349Iofoqqebnyq normal (finding)Hayes NILL Bilateral replacement of knee jointsMichael NILL Decompression of median nerveMichael NILL History of cholecystectomyStatus post cholecystectomy Jatin Hayden DO Work Phone: History of cholecystectomyS/P cholecystectomyMohamad Mouchli Tonsillectomy primary/secondaryMichael NILL Total abdominal hysterectomyMichael NILL Plan of Treatment DateCare ActivityDetailAuthorStart: 56-26-9768Oesynu, ShaniqueOrthoAllimarybeth [facility] Work Phone: Start: 12-27-2023 End: 76-97-6557Mwlztii encounter bkuroymgv75/04/2024 1:00 PM EST Office Visit [facility] BWH[facility] [address] [facility] [address] [place] [address] Jatin Hayden DO [address] [place] [address] ArrivedNOMS BWM GENSComment on above: ArrivedStart: 12-06-2023 End: 26-19-6321Thzxtsv encounter ackscybti66/14/2024 11:00 AM EDT Office Visit [facility] GENS [address] [facility] [address] [place] [address] Jatin Hayden DO [address] [place] [address] [facility]rivedLAYTON [facility]ITAL GENSComment on above: ArrivedStart: 16-82-0955Dtlyidirg vaccinationInfluenza Vaccine (#1)[facility] HealthcareStart: 68-88-5576Prfzwwgolmuv Vaccine: 65+ Years (1 of 1 - PCV) Pneumococcal Vaccine: 65+ Years (1 of 1 - PCV)[facility] HealthcareStart: 09-23-2017 Screening for malignant neoplasm of breastMammogramNOCA HealthcareStart: 94-08-3734Tcgvupknq for malignant neoplasm of colonNOCA Healthcare Immunizations Immunization DateImmunizationNotesCare UabwkjyqOeqcsjxz74-48-5482xxapvprko virus vaccine, unspecified formulationMohamad Mouchli 361-1712Rfdfdq-YjnbpL[facility]health [facility] Dig[facility]ive Knxeme44-30-9643 SARS-CoV-2 (COVID-19) mRNA BNT-162b2 vaxMohamad Mouchli 148-8078Tulqfs-KbvycLakehealth [facility]wood [facility] Digestive Nqzoqv21-52-7313 SARS-CoV-2 (COVID-19) mRNA BNT-162g0 vaxMohamad Mouchli 143-5379Qoutkk-OgjihLakehealth Beachwood [facility] Center Digestive Wcsuzz96-25-3715 influenza virus vaccine, unspecified formulationKyopal Hayden DO Work Phone: [phone]-UuwoaLakehealth Beachwood Medical Center Digestive HealthNEGATED: Highlighted row has not occurred!50-76-3219qnjufpkxo virus vaccine, live, attenuated, for intranasal useMichael NILL [phone]-Dtsjs General Surgery [place] Payers DatePayer CategoryPayerPolicy [id number]-duv [id number] (Managed Care)[employer] MEDICARE [id number] Health [id number] 1960Medicare [id number] [id number] 2.160.1.956736.3.579.[id number] 2.0.1.172523.3.579.2.76388-10-8544Ouzfiif2999955 2.16840.1.304104.3.579.2.65481-61-8461Xpiijmy9061671 2.16840.1.947948.3.579.2.50900-23-8572Somkxqx2601046 2.16840.1.985891.3.579.2.82883-66-3379Gxxvdyk2973003 2.0.1.674839.3.579.2.10872-85-6276Ynidzpz6166945 2.16840.1.556268.3.579.[id number] 2.16840.1.059896.3.579.2.229128-43-6664Ghtrhhy7106248 2.16840.1.181748.3.579.2.417511-94-4114Brvcavy12169920 2.16840.1.508660.3.579.2.47370-28-4872Rjemjpm29696609 2.16.840.1.758471.3.579.2.55690-11-0544Jbfgtwv10426102 2.16.840.1.132154.3.579.2.32555-52-0205Uhfbipo62119710 2.16.840.1.172007.3.579.2.21230-63-5353Xcgbeuz49017969 2.16.840.1.062477.3.579.2.36213-55-3481Owpyewi74747486 2.16.840.1.831318.3.579.2.65592-17-6829Eukpdcn9651616 2.16.840.1.545937.3.57[id number] 2.16.840.1.391694.3.579.2.153Hpghtpb31827893 2.16.840.1.375468.3.579.2.531 Social History DateTypeDetailFacilityTobacco smoking status NHISUnknown if ever smokedSt. John Of God Hospital Work Phone: Start: 59-41-5382Mek Assigned At BirthFePomerene Hospitaltart: 11-16-2023 End: 89-67-7667Ymvdsoq smoking statusNever smoked tobacco (finding)[facility] Surgery BellevueTobacco smoking statusNeverDelaware County Hospital General Surgery BellevueSex Assigned At BirthFeOhioHealth Mansfield Hospitaltart: 93-05-4075Rxasqdp smoking status NHISTobacco smoking consumption unknownNOCA HealthcareStart: 61-98-3880Sua assigned at birthNot on fileNOCA HealthcareStart: 73-31-3088Nfblhsc intakeAlcohol Use DetailsOrthoAlliance of IllinoisStart: 44-50-7020Aobdrs OrientationChoose not to discloseOrthoAlNorth [facility] State Hospital Functional Status LkkcFcwuzubjdqNawjtdXsjrbmgr06-17-7233Vzlzqbmysf StatusN/[facility] Dig[facility]ive Oygxna49-19-6745Tdmmjguear StatusN/[facility]01-29-2025Functional StatusN/[facility] Health 22-41-3517Ydcumaeqam StatusN/[facility] General Surgery Javed Clinical Notes 07-12-2020 to 05-10-2024 Note Date & YaerWkxhIjfofoyl91-44-4089 NotePatient: Shanique Canter Procedure Summary Date: 05/10/24 Room / Location: [facility] Anesthesia Start: 809 Anesthesia Stop: 858 [...] PACU per anesthesia protocol. No notable events documented.[facility]03-19-2025 Note Patient: Shanique Canter Procedure Summary Date: 05/10/24 Room / Location: [facility] Anesthesia Start: 809 Anesthesia Stop: Procedure: EUS (UPPER) W/ EGD Diagnosis: Bile leak RUQ abdominal pain Intestinal angina Scheduled Providers: Fawad Pacheco MD; Christopher Álvarez MD; MAGALI Bernal Responsible Provider: Christopher Álvarez MD Anesthesia Type: MAC ASA Status: 2 Anesthesia Post Transport Note Transport to: Shefali PACU O2 Route: room air Patient Monitor: direct observation Transport: uneventful Patient condition is: stableThe [facility]03-[facility] Note Patient: Shanique Camargo Procedure Information Date/Time: 05/10/24 0845 Scheduled providers: Fawad Pacheco MD; Christopher Álvarez MD; MAGALI Bernal Procedure: EUS (UPPER) W/ EGD Location: [facility] In[facility] Relevant Problems Anesthesia (within normal limits) [...] patient. Plan discussed with CAA. Additional Equipment RequestsThe [facility]02-[facility]-2025 Evaluation + Plan noteExtracted from:Title:NAA Post-operative Note---General JoizaAuthor:Hayes Johnson MDDate:03/29/24 Plan Transfer/Discharge: Transfer/Discharge Discharge when meets criteria ( From PACU to floor ). Extracted from:Title:ANES Pre-operative Note - EndoAuthor:Hayes Johnson MD Date:03/29/24 Plan [place] [employer] Anesthesiologists (ASA) physical status classification: Class II. Anesthetic Preoperative Plan: Anesthesia General, and -TIVA. Future Appointments Appointment Date:04/10/2024 01:30:00 PM Scheduled Provider:Josseline Diggs MD Location:[facility] App[facility]ment Type:[facility] Follow Up [facility] [phone] Hospital Discharge instructions Patient Education 03/29/2024 10:50:36 [...] unsweetened, w/added ascorbic acid 1 cup 0.5 [place] 1 cup 0.7 Vegetables Cooked Green beans 1 cup 4.0 Carrots 1/2 cup sliced 2.3 Peas 1 cup 8.8 Potato (baked, with skin) 1 medium potato 3.8 Raw [place] (with peel) 1 cucumber 1.5 Lettuce 1 [...] 8.7 Peanuts 1/2 cup 7.9 Chart from [facility] 2013. SEEK IMMEDIATE MEDICAL CARE IF: [...] Nutrient Database for Standard Reference. Available at http://www.VOSS.usda.gov/fnic/foodcomp/search/. Information adapted from: ExitCare Patient Information 2009 [employer]. [employer] 2012 http://www.Splyst/contents/jslwnbkirgok-gulgvgk-jaunip-the-basics 03/29/2024 10:50:33 Colon Polyps Colon Polyps Colon [...] hard liquor (44 mL). General instructions Take rllc-hmy-sdccmaa and prescription medicines only as told by [...] provider. Document Revised: 05/29/2020 Document Reviewed: 05/29/2020 [employer] Patient Education 2023 [employer]. Follow Up Care 03/22/2024 15:25:39 With:Dontae DA SILVA, FERMIN Adams, [facility] Address: [address] [place] [address], [address] [place] [phone] When: Unknown Comments:office will call for follow up [facility] 02-05-2025 NoteProgress Note-Physician Patient: SHANIQUE CAMARGO Age: 68 years Sex: Female : 1955 Associated Diagnoses: None Author: Hayes Johnson MD Postoperative Information Postoperative disposition: Postoperative disposition: To PACU. Optimetrix number: Optimetrix number [id number]. Anesthetic utilized: General. Health Status Allergies: Allergic [...] meets criteria ( From PACU to floor ).[facility]Comment [facility]:Result Comment: Electronically Signed By: Alex DA SILVA, Hayes Anton\.br\Date and Time Signed: 03/29/2509:50 LAD08-16-6908 NotePatient Education - Text Colonoscopy Care After Surgery Please read the instructions outlined below and refer to this sheet in the next few weeks. These discharge instructions provide you with general information on caring for yourself after you leave thehospital. Your doctor may also give you specific [...] unsweetened, w/added ascorbic acid 1 cup 0.5 [place] 1 cup 0.7 Vegetables Cooked Green beans 1 cup 4.0 Carrots 1/2 cup sliced 2.3 Peas 1 cup 8.8 Potato (baked, with skin) 1 medium potato 3.8 Raw [place] (with peel) 1 cucumber 1.5 Lettuce 1 [...] 8.7 Peanuts 1/2 cup 7.9 Chart from [facility] 2 (more content not included)...[facility] 03-29-2024 NoteProgress Note-Physician Patient: SHANIQUE CAMARGO Age: [...] Oral, Daily, # 30 cap(s), Refills(s)0, Pharmacy: [facility], 157.4, cm, 03/22/24 12:37:00 EST, Height/Length [...] All Problems Abdominal pain / SNOMED CT 22239948 / Confirmed Belching / SNOMED CT 787423617 / Confirmed Bleeding per rectum / SNOMED CT 112574168 / Confirmed BMI 28.0-28.9,adult / SNOMED CT 4105218543 / Confirmed Epigastric pain / SNOMED CT 729538475 / Confirmed Family history of colon cancer / SNOMED CT 579578465 / Confirmed Femoral hernia of left side / SNOMED CT 0146232932 / Confirmed GERD (gastroesophageal reflux disease) / SNOMED CT 780781993 / Confirmed Irreducible left inguinal hernia / SNOMED CT 4956362228 / Confirmed Irritable bowel syndrome with constipation / SNOMED CT 5440922328 / Confirmed Lipoma of skin / SNOMED CT 905916908 / Confirmed Osteoporosis / SNOMED CT 908030970 / Confirmed Overweight / SNOMED CT 590005656 / Confirmed Periumbilical pain / SNOMED CT 3379674188 / Confirmed S/P cholecystectomy / SNOMED CT 3151969397 / Confirmed Sigmoid diverticulosis / SNOMED CT 2751987895 / Confirmed Straining during bowel movements / SNOMED CT 28097792 / Confirmed Resolved: COVID-19 virus detected / SNOMED CT 7980745943 Resolved: Cystitis, acute / SNOMED CT 732285784 Resolved: Encounter for screening colonoscopy / SNOMED CT 615182228 Resolved: FH: cholecystectomy / SNOMED CT 0316198921 Canceled: Diverticular disease / SNOMED CT 7086678226 Canceled: Left inguinal hernia / SNOMED CT 640444537 Canceled: Mass of left inguinal region / SNOMED CT 3946776780, Active Problems (17) Abdominal pain Belching Bleeding per rectum BMI 28.0-28.9,adult Epigastric pain Family history of colon cancer Femoral hernia of left side GERD (gastroesophageal reflux disease) Irreducible left inguinal hernia Irritable bowel syndrome with constipation Lipoma of skin Osteoporosis Overweight Periumbilical pain S/P cholecystectomy Sigmoid diverticulosis Straining during bowel movements Histories Past Medical History: Resolved Encounter for screening colonoscopy (496569472): Resolved. Cystitis, acute (633465429): Resolved. COVID-19 virus detected (2842802243): Resolved. FH: cholecystectomy (2294029119): Resolved. Procedure history: Gallbladder (58349682) on 12/14/2023 at 67 Years. Comments: 03/22/2024 12:33 EST - Carin Knight A removal EGD - esophagogastroduodenoscopy (5632259913) on 11/24/2023 at 67 Years. Repair of left inguinal hernia (0092678195) on 09/04/2020 at 64 Years. Colonoscopy and biopsy of colon (8762667177) on 04/21/2019 at 63 Years. Comments: 04/26/2019 13:2 (more content not included)...[facility] HospitalComment on above:Result Comment: Electronically Signed By: Alex DA SILVA, Hayes Anton\.br\Date and Time Signed: 03/29/2508:54 [id number] History of Present illness Narrative* Jatin Hayden DO - 12/27/2023 1:00 PM EST General [...] ow up as needed. Thank you, Reese Hayden DO documented in this encounterSaint Luke's North Hospital–Barry RoadCoyqvljazn33-52-3267 History of Present illness Narrative* Jatin Hayden DO - 12/06/2023 11:00 AM EDT General [...] you, Reese Hayden DO documented in this encounterSaint Luke's North Hospital–Barry RoadPjnjdlildv05-24-0354 NoteGeneral Surgery Office/Clinic Note Chief Complaint consultation [...] mg Dis Tab, 4 (more content not included)...[facility] HospitalComment on above:Result Comment: Electronically Signed By: CASEY DA SILVA, Hayes Goodwin\Date and Time Signed: 11/16/23 15:49 [id number] NotePROCEDURE: XR HAND RT MIN 3V COMPARISON: 07/12/2020 hand HISTORY: Pain in right thumb FINDINGS: BONES:No acute fracture or dislocation. 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 No visible soft tissue swelling. EFFUSION:None visible. OTHER: Negative. IMPRESSION: Degenerative changes, no acute abnormality Electronically authenticated by: EDMOND CAAL Date: 2021-03-10 13:48[facility]07-14-2021 NoteOPERATIVE NOTE OPERATION DATE: 09-04-20 ANESTHETIC:General [...] Approved by: DR HAYES BOLDEN . 09/06/2020 08:06:00[facility]05-21-2021 NotePROCEDURE: XR HAND TERA MIN 3V [...] Electronically authenticated by: ALLEY ALLEN Date: 2020-07-12 13:58[facility] HospitalConsult note* Clinical Note Date No Information [facility] Work Phone: Discharge summary* Clinical Note Date No Information [facility] Work Phone: Evaluation + Plan note No data available for this section [facility] [place] Evaluation + Plan note Future Appointments Appointment Date:03/29/2024 10:30:00 AM Scheduled Provider: Location:[facility] Appointment Type:Surgery FT Appointment Date:04/10/2024 01:30:00 PM Scheduled Provider:Josseline Diggs MD Location:[facility]ment Type:[facility] Follow Up [facility] Evaluation + Plan noteLakehealth [facility] Evaluation noteNo assessment information available [facility] Work Phone: Evaluation note* Diagnosis Biliary dyskinesia- Primary Other specified disorder of gallbladder documented in this encounter [facility]* Diagnosis Status post cholecystectomy- Primary Other acquired absence of organ documented in this encounter [facility]* Type Assessment Date No Information [facility] Work Phone: History and physical note* Clinical Note Date No Information [facility] Work Phone: History of Present illness Narrative* Encounter Date Complaint History Of Prese nt Illness No Information [facility] Work Phone: Hospital Discharge instructions No data available for this section [facility] Instructions* Date Instruction Additional Infor mation No Information [facility] Work Phone: Progress note No data available for this section [facility] Progress note* Clinical Note Date No Information [facility] Work Phone: Reason for referral (narrative) , RUQ pain after cholecystectomy- Dr Gee- EUS Referred by: Dontae DA SILVA, Josseline Lorenzo [facility] Reason for referral (narrative)* Reason For Referral No Information [facility] Work Phone: Summary Purpose Family History Family Member Type Diagnosis Age At Onset No Information Advance Directives Advance Directive Response Recorded Date/ Time Advance Directives No December 7:43pm Directive Yes / No Effective Date File Name No Information Chief Complaint and Reason for Visit Chief Complaint Sciatica Chief Complaint Unknown Additional Source Comments INFORMATION SOURCE (unrecogn ized section and content) DATE CREATED AUTHOR 07/12/2021 [facility] DATE CREATED AUTHOR AUTHOR'S ORGANIZ ATION 12/22/2023 [facility] DATE CREATED AUTHOR AUTHOR'S ORGANIZ ATION 12/28/2023 [facility] DATE CREATED AUTHOR AUTHOR'S ORGANIZ ATION 04/04/2024 [facility] DATE CREATED AUTHOR AUTHOR'S ORGANIZ ATION 04/05/2024 [facility] DATE CREATED AUTHOR AUTHOR'S ORGANIZ ATION 04/14/2024 [facility] DATE CREATED AUTHOR AUTHOR'S ORGANIZ ATION 05/16/2024 [facility] DATE CREATED AUTHOR AUTHOR'S ORGANIZ ATION 12/13/2024 [facility] Care Teams (unrecognized sec tion and content) Team Status: Active Member Role Status Dates Katelyn Kaufman MD Primary Care Provider Active Team Status: Inactive Member Role Status Dates Katelyn Kaufman MD Primary Care Provider Active Start: September 14, 2023 End: September 13cathi Kelly , Attending ProviderActiveStart: September 14, 2023 End: September 14, 2023Team MemberRelationshipSpecialtyStart DateEnd Date Katelyn Kaufman MD [address] [facility] [place] [address] PCP - [facility] Qqucdyrq28/14/24Team MemberRelationshipSpecialtyStart Date End Date Katelyn Kaufman MD [address] [place] [address] PCP - [facility]12/06/23 Team Status: Inactive Member Role Status Dates Jatin Hayden DO Attending Provider Active Star t: December 14, 2023 End: December 14, 2023Team MemberRelationshipSpecialtyStart DateEnd Date Katelyn Kaufman MD [address] [facility] [place] [address] PCP - [facility] Mpawtjco56/14/24 Name Effective Dates (start - stop) Status Members No Information Goals (unrecognized section and content) Health Concern Goal Type Priority Status No Information Reason for Visit (unrecogniz ed section and content) ReasonCommentsAbdominal PainPatient presents with abdominal pain and flank pain. Since August. Nausea Acidic and greasy foods upset stomach. Patient had abdominal ultrasound and hida scan.ReasonCommentsPost-opPt presents 2 weeks post op cholecystectomy on 12/13. She states that she is doing well, denies anyconcerns. FOR RECORDS PERTAINING TO PATIENTS WHO ARE [...] BE BASED ON THE PRIMARY CLINICAL RECORDS. [facility]. provides no warranty or guarantee of the accuracy or completeness of information in this document.
--- OUTSIDE RECORDS SUMMARY | 2025-02-20 07:51 | XMS_ITS | Clinical Summary ---
Author Organization [facility] Address [address] [place] [address] Care Team Providers Care Stained Glass Joiner Name Role Phone Merrill Kaufman MD Primary Care Provider [phone] Allergies Active AllergyReactionsCriticalityNoted UannTondjpppJcinhtyemgwqBowii57/14/2024 NsaidsGI eontntnojhi06/14/2024SucralfateGI /14/2024 Medications MedicationSigDispense QuantityRefillsLast FilledStart DateEnd DateStatus hyoscyamine (Anaspaz) 0.[address] 0.125 mg under the tongue every 4 (four) hours if fsfvar4911/29/2023ctive pantoprazole (ProtoNix) 40 MG EC tablet Take 40 mg by mouth DailyActive ondansetron ODT (Zofran-ODT) 4 MG disintegrating tablet Take 4 mg by mouth every 8 (eight) hours if needed for nauseaActive Social History Tobacco UseTypesPacks/DayYears UsedDateSmoking Tobacco: Never Assessed CommentsUnknownSex and Gender InformationValueDate RecordedSex Assigned at Not on fileLegal MqjLtfqta70/15/2023 6:57 PM EDTGender IdentityNot on fileSexual OrientationNot on file Last Filed Vital Signs Vital SignReadingTime TakenCommentsBlood Bbxgtwoj238/7411 12:51 PM EST Jvwry103012/27/2023 12:51 PM ESTTemperature--Respiratory Fzer033802/25/2023 12:51 PM ESTOxygen Gungqeigbp90%12/27/2023 12:51 PM ESTInhaled Oxygen Concentration-- Zepsxe97.5 kg (151 lb)12/27/2023 12:51 PM ZACPrcsrq270.5 cm (5' 2 )12/27/2023 12:51 PM ESTBody Mass Index27.6212/27/2023 12:51 PM EST Plan of Treatment Not on file Insurance Care Teams Team MemberRelationshipSpecialtyStart DateEnd Date Merrill Kaufman MD PCP - GeneralFamily Douyfzmd18/14/24
--- OUTSIDE RECORDS SUMMARY | 2025-02-20 07:51 | XMS_ITS | Patient Health Record ---
Author Organization [facility] in Industry Address [address] [place] [address] Care Team Providers Care Certification Technician Name Role Phone Stanton Yoon Primary Care Provider Allergies Allergen (clinical drug ingredient) Drug/Non Drug Allergy documented on EMR Reaction Allergy Type Onset Date Status Levaquinsevere muscle achesDrug AllergyActiveNon-steroidal anti-inflammatory agent (FN)NSAIDsGI INTOLERANCEDrug AllergyActivesucralfateSucralfateGI intoleranceDrug AllergyActive Results Component Value Reference Range Notes AMYLASE Reviewed date:02/19/2025 06:16:49 PM Interpretation: Performing Lab: Notes/Report: [facility] , Amylase 56 25-115 U/L Performing Lab:see noteML - [facility] LBCBC AUTO DIFF Reviewed date:02/19/2025 06:16:49 PM Interpretation: Performing Lab: Notes/Report: [facility] ,White Blood Count8.54.0-11.0 10 3/uLRed Blood Count4.774.20-5.40 10 6/uL Hutowcfcgs30.112.0-16.0 g/nWQyltzgkjcv92.636.0-48.0 %Mean Corpuscular Nqdrrj59.5 81.0-99.0 fLMean Corpuscular Egldbfiswf09.626.7-34.0 pgMean Corpuscular HGB Conc 31.629.9-35.2 g/dLRed Cell Distribution Width12.611.0-15.0 %Platelet Kczdk507 150-450 10 3/uLMean Platelet Qhjekr38.59.5-13.5 fLNeutrophils Percent Auto48.6 43.0-75.0 %Lymphocytes Percent Auto35.920.5-60.0 %Monocytes Percent Auto11.51.7- 12.0 %Eosinophils Percent Auto3.30.9-7.0 %Basophils Percent Auto0.50.2-2.0 % Immature Granulocytes Pct Auto0.20.0-0.5 %Neutrophils Absolute Auto4.21.4-6.5 10 3/uLLymphocytes Absolute Auto3.11.2-3.8 10 3/uLMonocytes Absolute Auto1.00.3-0.8 10 3/uLEosinophils Absolute Auto0.30.0-0.7 10 3/uLBasophils Absolute Auto0.00.0- 0.1 10 3/uLImmature Granulocytes Abs Auto0.020.00-0.03 10 3/uLPerforming Lab:see noteML - [facility] LBLIPASE Reviewed date:02/19/2025 06:16:49 PM Interpretation: Performing Lab: Notes/Report: [facility] ,Ggeqmf14.016.0-77.0 U/LPerforming Lab:see noteML - [facility] LBPROF 14(COMP METB) Reviewed date:02/19/2025 06:16:49 PM Interpretation: Performing Lab: Notes/Report: [facility] ,Crvqvv262864-185 mmol/LPotassium3.93.5-5.1 mmol/RBspxvlso48548-115 mmol/LCarbon Vvzdwlq35.621.0-32.0 mmol/LAnion Gap11.5Itqqudm5516-547 mg/dLBlood Urea Nitrogen 20.07.0-18.0 mg/dLCreatinine0.660.55-1.02 mg/dLEstimated GFR ( Shireen>60 >=60 mL/min/1.73m 2Estimated GFR (Non- Isela>60>=60 mL/min/1.73m 2BUN Creatinine Ratio30.6Zlaqtuh5.18.5-10.1 mg/dLBilirubin Total0.30.2-1.0 mg/dL Aspartate Amino Rfzblxctukg2651-31 U/LAlanine Fhakivmhxyvooorb2250-88 U/L Alkaline Chzrjhayrke1814-873 U/LTotal Protein7.36.4-8.2 g/dLAlbumin Level3.73.4- 5.0 g/dLGlobulin3.6Albumin Globulin Ratio1.0Performing Lab:see noteML - [facility] LBXR KNEE LT 3V Reviewed date:02/07/2025 04:56:10 PM Interpretation: Performing Lab: Notes/Report: Source Facility: [facility]-[address] [place] [address] [place] [address] XRay Report Signed Patient: SHANIQUE CAMARGO MR#: [id number] : 1955 Acct:[id number] Age/Sex: 69 / F ADM Date: 02/07/25 Loc: TIFFANIE Attending Dr: Katelyn Yoon M.D. Ordering Physician: Katelyn Yoon M.D. Date of Service: 02/07/25 Procedure(s): XR knee LT 3V Accession Number(s): [id number] cc: Katelyn Yoon M.D. [place] [address] Patient Name: SHANIQUE CAMARGO MRN: [id number] date: 1955 Sex: F Assigned Patient Location: [facility] Current Patient Location: [facility] Accession/Order Number: [id number] Exam Date: 02/07/2025 09:55 Report Date: 02/07/2025 [...] Mckoy M.D. 02/07/2025 10:22 AM Dictation Location: [place] [address] Electronically authenticated by: [id number] Y Date: 02/07/2025 10:22 Dictated By: Xiomara Mckoy M.D. 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: Skidway Worker:LEXY T3 Reviewed date:08/29/2024 06:58:57 PM Interpretation: Performing Lab: Notes/Report: [facility] ,Free T32.852.18-3.98 pg/mLPerforming Lab:see noteML - [facility] LB LIPID PROFILE Reviewed date:08/29/2024 06:58:57 PM Interpretation: Performing Lab: Notes/Report: [facility] ,Ojugfbtizqrqx71<=150 mg/lMLvgitrodiem158<=200 mg/dLHDL Amgntneobtq1129-79 mg/dL > or =60 mg/dl - LOW CARDIOVASCULAR RISK <40 mg/dl - HIGH CARDIOVASCULAR RISK LDL Cholesterol Pyiqdvwdow310.0 <100 mg/dl OPTIMAL 100-129 mg/dl NEAR OR ABOVE OPTIMAL 130-159 mg/dl BORDERLINE HIGH 160-189 mg/dl HIGH >190 mg/dl VERY HIGH VLDL CHOLESTEROL8.4Chol HDL Ratio2.3 3.3 - 4.4 LOW RISK 4.4 - 7.1 AVERAGE RISK 7.1 - 11.0 MODERATE RISK >11.0 HIGH RISK Performing Lab:see noteML - [facility] LBPROF 14(COMP METB) Reviewed date:08/29/2024 06:58:57 PM Interpretation: Performing Lab: Notes/Report: [facility] ,Svgpwo841980-068 mmol/LPotassium4.63.5-5.1 mmol/OIkyqfvld79479-150 mmol/LCarbon Bkkuyqr60.621.0-32.0 mmol/LAnion Gap11.0Jabwsxz6212-376 mg/dLBlood Urea Nitrogen 20.07.0-18.0 mg/dLCreatinine0.620.55-1.02 mg/dLEstimated GFR ( Shireen>60 >=60 mL/min/1.73m 2Estimated GFR (Non- Isela>60>=60 mL/min/1.73m 2BUN Creatinine Ratio32.6Hmcupjk4.88.5-10.1 mg/dLBilirubin Total0.30.2-1.0 mg/dL Aspartate Amino Pjmnmraprpx9480-73 U/LAlanine Pjtorcyspspzqdwj3761-73 U/L Alkaline Cgtzcculjlv8888-722 U/LTotal Protein7.36.4-8.2 g/dLAlbumin Level3.73.4- 5.0 g/dLGlobulin3.6Albumin Globulin Ratio1.0Performing Lab:see noteML - [facility] LBT4 Reviewed date:08/29/2024 06:58:57 PM Interpretation: Performing Lab: Notes/Report: [facility] ,T4 Thyroxine6.504.80-13.90 ug/dLPerforming Lab:see noteML - [facility] LBTSH Reviewed date:08/29/2024 06:58:57 PM Interpretation: Performing Lab: Notes/Report: [facility] ,Thyroid Stimulating Hormone1.1170.358-3.740 uIU/mLPerforming Lab:see noteML - [facility] LBXR tibia fibula LT 2V Reviewed date:02/07/2025 04:56:10 PM Interpretation: Performing Lab: Notes/Report: Source Facility: [place] [address] [place] [address] XRay Report Signed Patient: SHANIQUE CAMARGO MR#: [id number] : 1955 Acct:[id number] Age/Sex: 69 / F ADM Date: 02/07/25 Loc: RAD Attending Dr: Katelyn Yoon M.D. Ordering Physician: Katelyn Yoon M.D. Date of Service: 02/07/25 Procedure(s): XR tibia fibula LT 2V Accession Number(s): [id number] cc: Katelyn Yoon M.D. [place] [address] Patient Name: SHANIQUE CAMARGO MRN: [facility]:[id number] date: 1955 Sex: F Assigned Patient Location: [facility] Current Patient Location: [facility] Accession/Order Number: [id number] Exam Date: 02/07/2025 09:55 Report Date: 02/07/2025 10:24 At the request of: KATELYN YOON MD Procedure: XR tibia fibula LT 2V [...] Mckoy M.D. 02/07/2025 10:24 AM Dictation Location: [place] [address] Electronically authenticated by: [id number] Y Date: 02/07/2025 10:24 Dictated By: Xiomara Mckoy M.D. Signed By: 02/07/25 1027 DD/ 1024 TD/TT: Skidway Worker:ROMULO RANDOM W or MICROSCOPIC Reviewed date:02/19/2025 06:16:49 PM Interpretation: Performing Lab: Notes/Report: [facility] ,Color UrineLT. YELLOWYELLOWClarity UrineCLEARCLEARSpecific [place] Urine1.015 1.005-1.025pH Urine5.55.0-9.0Protein UrineNEGATIVENEG/TRACE mg/dLGlucose Urine UANEGATIVENEGATIVE mg/dLBilirubin UrineNEGATIVENEGATIVEKetones UrineNEGATIVE NEGATIVE mg/dLBlood UrineNEGATIVENEGATIVENitrite UrineNEGATIVENEGATIVE Urobilinogen Urine0.20.2-1.0 EU/dLLeukocyte Esterase UrineTRACENEGATIVEWBC Urine 0-2NONE SEEN #/HPFRBC Urine0-20-2 #/HPFBacteria UrineTRACENONE SEEN #/HPFMucus UrineNONE SEENNONE SEENSquamous Epithelial Cell UrineRARENONE/RARE #/LPF Transitional Epi Cells UrineRARENONE SEEN #/LPFCrystals Seen?None SeenNone Seen #/HPFCast Seen?NONE SEENNONE SEEN #/LPFUrine Culture IndicatedNOPerforming Lab: see noteML - [facility] LBCBC AUTO DIFF Reviewed date:08/29/2024 06:58:57 PM Interpretation: Performing Lab: Notes/Report: [facility] ,White Blood Count5.84.0-11.0 10 3/uLRed Blood Count4.874.20-5.40 10 6/uL Onuovhagth63.512.0-16.0 g/eHLhexeyfydh04.036.0-48.0 %Mean Corpuscular Rihcdw70.4 81.0-99.0 fLMean Corpuscular Irioyigrxh98.826.7-34.0 pgMean Corpuscular HGB Conc 32.229.9-35.2 g/dLRed Cell Distribution Width12.811.0-15.0 %Platelet Tegmm164 150-450 10 3/uLMean Platelet Ixugsv41.99.5-13.5 fLNeutrophils Percent Auto46.7 43.0-75.0 %Lymphocytes Percent Auto37.520.5-60.0 %Monocytes Percent Auto10.21.7- 12.0 %Eosinophils Percent Auto4.70.9-7.0 %Basophils Percent Auto0.70.2-2.0 % Immature Granulocytes Pct Auto0.20.0-0.5 %Neutrophils Absolute Auto2.71.4-6.5 10 3/uLLymphocytes Absolute Auto2.21.2-3.8 10 3/uLMonocytes Absolute Auto0.60.3-0.8 10 3/uLEosinophils Absolute Auto0.30.0-0.7 10 3/uLBasophils Absolute Auto0.00.0- 0.1 10 3/uLImmature Granulocytes Abs Auto0.010.00-0.03 10 3/uLPerforming Lab:see noteML - [facility] LBXR KNEE RT 3V Reviewed date:08/10/2024 06:48:32 PM Interpretation: Performing Lab: Notes/Report: Source Facility: [facility]-[address] [place] [address] [address] XRay Report Signed Patient: SHANIQUE CAMARGO MR#: [id number] : 1955 Acct:[id number] Age/Sex: 68 / F ADM Date: 08/10/24 Loc: ER Attending Dr: Ordering Physician: Nikki Paulino Date of Service: 08/10/24 Procedure(s): XR knee RT 3V Accession Number(s): [id number] cc: Katelyn Yoon M.D.; Nikki Paulino [place] [address] Patient Name: SHANIQUE CAMARGO MRN: [id number] date: 1955 Sex: F Assigned Patient Location: ER Current Patient Location: ER Accession/Order Number: [id number] Exam Date: 08/10/2024 08:06 Report Date: 08/10/2024 [...] Mckoy M.D. 08/10/2024 8:08 AM Dictation Location: [place] [address] Electronically authenticated by: [id number] Y Date: 08/10/2024 08:08 Dictated By: Xiomara Mckoy M.D. Signed By: 08/10/24 0811 DD/ TD/TT: Skidway Worker:XR shoulder RT min 2V Reviewed date:07/26/2024 09:09:48 PM Interpretation: Performing Lab: Notes/Report: Source Facility: [place] [id number] XRay Report Signed Patient: SHANIQUE CAMARGO MR#: [id number] : 1955 Acct:[id number] Age/Sex: 68 / F ADM Date: 07/25/24 Loc: RAD Attending Dr: Katelyn Yoon M.D. Ordering Physician: Katelyn Yoon M.D. Date of Service: 07/25/24 Procedure(s): XR shoulder RT min 2V Accession Number(s): [id number] cc: Katelyn Yoon M.D. [place] [address] Patient Name: SHANIQUE CAMARGO MRN: [id number] date: 1955 Sex: F Assigned Patient Location: [facility] Current Patient Location: [facility] Accession/Order Number: [id number] Exam Date: 07/25/2024 17:31 Report Date: 07/25/2024 17:31 At the request of: KATELYN YOON MD Procedure: XR shoulder RT min 2V 3 views right shoulder plain film HISTORY: Acute right shoulder pain COMPARISON: None ACUTE FINDINGS: None DEGENERATIVE CHANGE: Unremarkable SOFT TISSUE FINDINGS: Unremarkable JOINT EFFUSION: None POSTOP CHANGES: None BONY MINERALIZATION: Adequate XR/XR shoulder RT min 2V IMPRESSION: No acute findings. Impression dictated by: Terrence Dhillon M.D. 07/25/2024 5:31 PM Dictation Location: [place] [address] Electronically authenticated by: [id number] Y Date: 07/25/2024 17:31 Dictated By: Terrence Dhillon D.O. Signed By: 07/25/24 1734 DD/ 173 TD/TT: Skidway Worker:PROF [place](COMP METB) Reviewed date:03/06/2024 01:15:20 PM Interpretation: Performing Lab: Notes/Report: [facility] ,Fwkxyc133362-038 mmol/LPotassium4.23.5-5.1 mmol/XKvbhcqno60946-108 mmol/LCarbon Bifhnzs46.321.0-32.0 mmol/LAnion Gap9.2Dlvgzhn8312-220 mg/dLBlood Urea Nitrogen 15.07.0-18.0 mg/dLCreatinine0.680.55-1.02 mg/dLEstimated GFR ( Shireen>60 >=60 mL/min/1.73m 2Estimated GFR (Non- Isela>60>=60 mL/min/1.73m 2BUN Creatinine Ratio22.1Ogafkwr4.38.5-10.1 mg/dLBilirubin Total0.20.2-1.0 mg/dL Aspartate Amino Doyhmludolb4259-72 U/LAlanine Emlnlgpgwdtucsex7095-75 U/L Alkaline Tcdfzpyxtxg9016-851 U/LTotal Protein7.06.4-8.2 g/dLAlbumin Level3.73.4- 5.0 g/dLGlobulin3.3Albumin Globulin Ratio1.1Performing Lab:see noteML - [facility] LBCBC AUTO DIFF Reviewed date:03/06/2024 01:15:20 PM Interpretation: Performing Lab: Notes/Report: [facility] ,White Blood Count8.54.0-11.0 10 3/uLRed Blood Count4.554.20-5.40 10 6/uL Liswymharj22.712.0-16.0 g/kYRwtupkalof46.536.0-48.0 %Mean Corpuscular Ktbujt70.4 81.0-99.0 fLMean Corpuscular Wazoqrxyuj88.126.7-34.0 pgMean Corpuscular HGB Conc 32.229.9-35.2 g/dLRed Cell Distribution Width12.311.0-15.0 %Platelet Lbylh869 150-450 10 3/uLMean Platelet Szktvn44.79.5-13.5 fLNeutrophils Percent Auto61.7 43.0-75.0 %Lymphocytes Percent Auto27.620.5-60.0 %Monocytes Percent Auto9.11.7- 12.0 %Eosinophils Percent Auto0.90.9-7.0 %Basophils Percent Auto0.50.2-2.0 % Immature Granulocytes Pct Auto0.20.0-0.5 %Neutrophils Absolute Auto5.21.4-6.5 10 3/uLLymphocytes Absolute Auto2.31.2-3.8 10 3/uLMonocytes Absolute Auto0.80.3-0.8 10 3/uLEosinophils Absolute Auto0.10.0-0.7 10 3/uLBasophils Absolute Auto0.00.0- 0.1 10 3/uLImmature Granulocytes Abs Auto0.020.00-0.03 10 3/uLPerforming Lab:see noteML - [facility] hepatobiliary wo pharm Reviewed date:03/01/2024 06:55:03 PM Interpretation: Performing Lab: Notes/Report: Source Facility: [place] [address] Nuclear Medicine Report Signed Patient: SHANIQUE CAMARGO MR#: [id number] : 1955 Acct:[id number] Age/Sex: 68 / F ADM Date: 03/01/24 Loc: [place] Attending Dr: Katelyn Yoon M.D. Ordering Physician: Katelyn Yoon M.D. Date of Service: 03/01/24 Procedure(s): [place] hepatobiliary wo pharm Accession Number(s): [id number] cc: Katelyn Yoon M.D. [place] [address] Patient Name: SHANIQUE CAMARGO MRN: [id number] date: 1955 Sex: F Assigned Patient Location: [place] Current Patient Location: [place] Accession/Order Number: [id number] Exam Date: 03/01/2024 06:40 Report Date: 03/01/2024 09:55 At the request of: KATELYN YOON Procedure: MN hepatobiliary wo pharm EXAMINATION: [place] hepatobiliary wo pharm HISTORY: ABDOMINAL PAIN COMPARISON: [...] of common biliary ductal obstruction. OTHER: Negative. MN/MN hepatobiliary wo pharm IMPRESSION: No evidence of a biliary leak Electronically authenticated by: EDMOND CAAL Date: 03/01/2024 09:55 Dictated By: Edmond Caal M.D. Signed By: 03/01/24957 DD/ 4 TD/TT: Skidway Worker:GLYCOHEMOGLOBIN A1C Reviewed date:08/29/2024 06:58:57 PM Interpretation: Performing Lab: Notes/Report: [facility] ,Glycohemoglobin A1C5.54.5-6.2 % ADA RECOMMENDED LIMIT 4.0 - 6.0 ADA THERAPEUTIC TARGET < 7.0 ACTION SUGGESTED > 7.0 Estimated Average Gryvxvk578Fydphbhrfr Lab:see noteML - [facility] LB UA (Urinalysis, Dipstix only - w/o micro) Reviewed date:06/14/2024 11:40:26 AM Interpretation: Performing Lab: Notes/Report: COLORyellowYellow - Ellei -CLARITYclearClear - ClearGLUCOSE-0 - 133 MG/DLALBUMIN -NEG - NEG MG/DLBILIRUBIN-NEG - NEG MG/DLSPECIFIC GRAVITY1.0201.001 - 1.035 KETONES-NEG - NEG MG/DLBLOOD, UR-PH, UR55 - 9UROBILNOGEN-0.2 - 1 MG/DLNITRITE- NEG - NEGESTERASE (FERNANDA)-NEG - NEG MG/DLUA DIP NONAUTO WO MICRO (91975) - IN OFFICE Reviewed date:07/26/2024 09:09:48 PM Interpretation: Performing Lab: Notes/Report: COLORyellowCLARITYcloudyGLUCOSEnBILIRUBINnKETONEsmallSPECIFIC GRAVITY1.015BLOOD +++TU2LNQUSJM04+UROBILINOGENnNITRITE+LEUKOCYTE ESTERASE++MR angio abdomen wo con Reviewed date:04/26/2024 09:04:53 PM Interpretation: Performing Lab: Notes/Report: Source Facility: [facility]-[address] [place] [address] [place] [address] Magnetic Resonance Report Signed Patient: SHANIQUE CAMARGO MR#: [id number] : 1955 Acct:[id number] Age/Sex: 68 / F ADM Date: 04/26/24 Loc: MRI Attending Dr: Katelyn Yoon M.D. Ordering Physician: Katelyn Yoon M.D. Date of Service: 04/26/24 Procedure(s): MR angio abdomen wo con Accession Number(s): [id number] cc: Katelyn Yoon M.D. The [address] [address] Patient Name: SHANIQUE CAMARGO MRN: [facility]:[id number] date: 1955 Sex: F Assigned Patient Location: MRI Current Patient Location: MRI Accession/Order Number: [id number] Exam Date: 04/26/2024 15:43 Report Date: 04/26/2024 15:50 At the request of: KATELYN YOON MD Procedure: MR angio abdomen wo con MRA of the abdomen without IV contrast. Reason for exam: Chronic abdominal pain COMPARISON: CT abdomen and pelvis 01/07/2024. TECHNIQUE: Multisequence, multiplanar imaging of the abdomen was obtained. Additional zane-eq-adpaii imaging of the aorta and its major [...] Glasgow Jr., D.O.04/26/2024 3:50 PM Dictation Location: [place] [address] Electronically authenticated by: [id number] Y Date: 04/26/2024 15:50 Dictated By: Yordy Glasgow M.D. Signed By: 04/26/24 1552 DD/ 1550 TD/TT: Skidway Worker:LIPASE Reviewed date:03/06/2024 01:15:20 PM Interpretation: Performing Lab: Notes/Report: [facility] ,Ldikqt31.016.0-77.0 U/LPerforming Lab:see note - [facility] LB AMYLASE Reviewed date:03/06/2024 01:15:20 PM Interpretation: Performing Lab: Notes/Report: [facility] ,Vwlvzch1419-823 U/LPerforming Lab:see note - [facility] LBOccult Blood* Reviewed date:08/30/2024 06:21:32 PM Interpretation: Performing Lab: Notes/Report: [facility] ,Occult BloodNegativePerforming Lab:see note - [facility] LB Reason For Referral Diagnosis 1 Intestinal angina (K 55.1) Referral Organization [facility] Referring Provider First Name Stanton Referring Provider Last Name [facility] Referring Provider [facility] Referred Provider Specialty Gastroentero logy Referral Priority Routine Diagnosis 1 Bile duct leak (K83. 8) Referral Organization [facility] Referring Provider First Name Stanton Referring Provider Last Name [facility] Referring Provider [facility] Referred Provider Fawad Mcintosh Referred Provider Specialty [...] alcohol in the p ast year? No Yeobad6WnbieohblhmjebNyaftsmiYCXWP-I (Standard) Question Answer Notes Did you have a drink containing alcohol in the p ast year? No Ghneza2VyeyzxeqdcbfomHcpofiee Problems Problem Type SNOMED Code ICD Code Onset Dates Problem Status W/U Status Risk Notes Problem Age-related osteoporosis (888105 002) Age-related osteoporosis without current pathological fracture (M81.0) ActiveconfirmedProblemAbdominal pain (33916469)Abdominal pain (R10.9)Active confirmedProblemGastroesophageal reflux disease (873560459)GERD (gastroesophageal reflux disease) (K21.9)ActiveconfirmedProblemEpigastric pain (34778152)Epigastric abdominal pain (R10.13)ActiveconfirmedProblemOsteoarthritis of knee (145355363)Knee osteoarthritis (M17.9)ActiveconfirmedProblemDiverticular disease of colon (909989981)Diverticulosis (K57.90)ActiveconfirmedProblemAcute sinusitis (16700376)Acute sinusitis (J01.90)ActiveconfirmedProblemAcute bronchitis (74068159)Acute bronchitis (J20.9)ActiveconfirmedProblemPain of left knee region (finding) (521291726950181)Knee pain, left (M25.562)Activeconfirmed ProblemSciatica (01494858)Sciatic leg pain (M54.30)ActiveconfirmedProblemTubular adenoma (620372276)Tubular adenoma (D36.9)ActiveconfirmedProblemGastroenteritis (48713444)Gastroenteritis (K52.9)ActiveconfirmedProblemUpper abdominal pain (41562366)Upper abdominal pain (R10.10)ActiveconfirmedProblemIntestinal angina (820949961)Intestinal angina (K55.1)ActiveconfirmedProblemBile duct leakage (disorder) (971628511)Bile duct leak (K83.8)ActiveconfirmedProblemOsteoarthritis of knee (855029567)Knee osteoarthritis (M17.10)Activeconfirmed Vital Signs Temperature 98.2 degrees Fahrenheit 06/02/2024 Blood pressure juhhvpctp37 mm Hg02/19/20255232Uubjjv70 in02/19/2025lood pressure mm Hg02/19/20259710Owlddm443 lbs1MI29.09 kg/m202/19/2025 Procedures Procedure Date Ordered Date Performed Result Body Sit e Colonoscopy 03/29/2024 Normal Encounters Encounter Location Date Provider Diagnosis [facility] [address] [place] [address] 02/28/2024 Stanton Hoy Abdominal pain R10.9 [place] [address] [place] [address] 03/06/2024 Stanton Hoy Epigastric abdominal pain R10.13 [place] [address] [place] [address] 04/05/2024 Stanton Hoy Acute non-recurrent sinusitis, unspecified location J01.90 and Nasal congestion R09.[address] [address] 04/20/2024 Stanton Hoy GERD (gastroesophage al reflux disease) K21.9 and Intestinal angina K55.[address] [address] 06/02/2024 Stanton Hoy Burning with urinati on R30.0 ; UTI (urinary tract infection), uncomplicated N39.0 and Dysuria R30.[address] [address] 06/14/2024 Stanton Hoy UTI (urinary tract infection) N39.[address] [address] 07/24/2024 Stanton Hoy Shoulder impingement M25.819 and Impingement of right shoulder M25.[address] [address] 08/23/2024 Stanton Hoy Encounter for Medica re annual wellness exam Z00.[address] [address] 08/18/2024 Stanton Hoy Knee osteoarthritis M17.[address] [address] 02/07/2025 Stanton Hoy Knee pain, left M25. 562 and Gastritis K29.[address] [address] 02/19/2025 Stanton Hoy Gastroenteritis K52. 9 and Abdominal pain R10.[address] [address] 02/28/2024 Stanton huyen [facility] [place] [address] 03/01/2024[facility] [place] [address]/09/2024[facility] [place] [address]/11/2024[facility] [place] [address]/Doug [facility] [place] [address]/[facility] [place] [address]/ [facility] [place] [address]/Doug HoyIntestinal angina K55.1 ; Upper abdominal pain R10.10 and [facility]ile duct leak K83.8[facility] [place] [address]/06/2024Doug [facility] [place] [address]/[facility] [place] [address]/05/2024[facility] [place] [address]/09/2024 Stanton [facility] [place] [address]/Doug [facility] [place] [address]/[facility] [place] [address]/[facility] [place] [address]/Dopaulo Yoon Assessments Encounter Date Diagnosis (ICD Code) Assessment Notes Treatment Notes Treatment Clinical Notes Section Notes 03/06/2024 Epigastric abdominal pain (ICD-1 0 - R10.13) 5Acute non-recurrent sinusitis, unspecified location (ICD-10 - J01.90) Rest and drink more liquids, especially water. You may use a humidifier or vaporizer to help keep the drainage moist. Kfsd-scn-cllcpto Nasal Saline may help the stuffy and runny nose. Use Ibuprofen and or Tylenol as needed for fever, chills, body aches or pain. Children 5 years old should not be given dddm-rik-rjjcdwh cough and cold medications such as guaifenesin and dextromethorphan. If you're over age 5, you may try yirf-kmp-dauehbx cold medications such as guaifenesin and dextromethorphan, or multi-symptom cold reliever such as Dayquil to help reduce the symptoms. Antibiotics have been pre scribed. You should take these until completed and follow the directions. Antibiotics can sometimescause upset stomach, and in rare cases, serious allergic reactions or serious gastrointestinal problems. If you start having severe abdominal pain, severe vomiting, or bloody diarrhea, you should be r eevaluated by your physician or urgent care immediately. Follow up with your Primary Care Provider or return to clinic if symptoms do not improve within 3-5 days04/20/2024GERD (gastroesophageal reflux disease) (ICD-10 - K21.9)04/20/2024 Intestinal angina (ICD-10 - K55.1)06/02/2024urning with urination (ICD-10 - R30.0)02/28/2024bdominal pain (ICD-10 - R10.9)06/14/2024UTI (urinary tract infection) (ICD-10 - N39.0)07/24/2024Impingement of right shoulder (ICD-10 - M25.811)07/24/2024Shoulder impingement (ICD-10 - M25.819)08/23/2024Encounter for Medicare annual wellness exam (ICD-10 - [...] was due for yearly labs which were dvsjthy0608/18/2024Knee osteoarthritis (ICD-10 - M17.9)02/07/2025Gastritis (ICD-10 - K29.70)trial double dose - if not heloing caling back02/07/2025Knee pain, left (ICD-10 - M25.562) 02/19/2025bdominal pain (ICD-10 - R10.9)02/19/2025Gastroenteritis (ICD-10 - K52.9)Get plenty of rest. Stay hydrated by sucking on ice chips or taking small sips of water. You can also try drinking clear soda, clear broths or noncaffeinated sports drinks. Stop eating solid foods for a few hours to let your stomach settle. East back into eating by eating bland, bwzc-gr-dnfhlx foods like crackers, toast, gelatin, bananas, rice and chicken. Try to avoid foods/substances including dairy products, caffeine, alcohol, nicotine and fatty or highly seasoned foods. Medications such as ibuprofen or tylenol can make your stomach more upset, so use sparingly if at all. Also avoid ifug-qvf-rjmiaga anti-diarrheal medications because it can make it harder for your body to eliminate the virus.04/20/2024Upper abdominal pain (ICD-10 - R10.10)04/20/2024 Intestinal angina (ICD-10 - K55.1)04/20/2024ile duct leak (ICD-10 - K83.8) 06/02/2024UTI (urinary tract infection), uncomplicated (ICD-10 - N39.0)Drink [...] until they are finished. You can use bvia-qnn-bjgvvwu acetaminophen or ibuprofen if needed for pain. You should follow up with your Primary Care Physician or return to clinic if not improving in the next 3-5 days.04/05/2024Nasal congestion (ICD-10 - R09.81)06/02/2024Dysuria (ICD-10 - R30.0) Plan Of Treatment Pending [...] PCR STOOL 10/11/2023 CBC W/AUTO DIFF 08/23/2024 CULTURE URINE 02/19/2025 VIT B12 AND FOLATE 06/23/2023 CT ABD and PELV W CON 09/21/2023 US ABD 02/02/2024 US ABD 02/19/2025 US ABD 11/26/2023 XR DEXA BONE DENSITY [...] Coverage End Date [employer] [place] [address] [address] [place] [address] [id number] Raman Shanique Self - patient is the insured 4 Medical (General) History Medical History History ICD Code Arthritis M19.90 Inguinal hernia K40.90 Diverticular disease K57.90 Surgical History Surgery Date(Month/Year) Colonoscopy, polyp x3- Dr Diggs 5 gallbladder removed 12/13/23 EGD 11/24/2023 EGD 05/10/24 Hysterectomy 1989 Tonsillectomy 1964 Carpal Tunnel 2001 Right Knee Surgery 11/12/15 Left Knee Surgery 01/12/16 Hernia Repair
--- NOTE | 2025-02-20 07:52 | US_ITS ---
The [address] [address] Patient Name: MARY JO ROBLES MRN: [id number] date: 1955 Sex: F Assigned Patient Location: Current Patient Location: Accession/Order Number: [id number] Exam Date: 02/20/2025 08:00 Report Date: 02/20/2025 11:10 At the request of: KATELYN YOON MD Procedure: US abdomen complete COMPLETE ABDOMINAL ULTRASOUND CLINICAL HISTORY: Low abdominal pain after eating. Prior cholecystectomy. COMPARISON: 02/11/2024 The gallbladder is surgically absent. No intra- or extrahepatic biliary dilatation is evident. The common duct measures 2 - 3 mm. The liver is normal in echogenicity. No intrahepatic masses are seen. There is appropriate hepatopetal flow within the main portal vein. The pancreas shows no significant sonographic abnormality. The spleen is normal in size measuring 9.4 cm in craniocaudal dimension. Echogenic foci within the spleen suggest granulomas. The right kidney measures 9.1 cm and the left 10.2 cm in craniocaudal dimension. No shadowing calculi, renal mass lesions or hydronephrosis are seen. There is no aortic aneurysm. The IVC is patent. No ascites is noted. US/US abdomen complete IMPRESSION: SPLENIC GRANULOMAS. OTHERWISE NEGATIVE ULTRASOUND OF THE ABDOMEN. Impression dictated by: Xiomara Mckoy M.D. 02/20/2025 11:10 AM Dictation Location: [place] [address] Electronically authenticated by: [id number] Y Date: 02/20/2025 11:10
== END 2025-02-20 07:49 | disposition home or self-care (01) ==
LOC: US 07:48
PROVIDERS: PCP Family Medicine; Visit Provider Family Medicine
DX: K52.9 Noninfective gastroenteritis and colitis, unspecified (principal)
CPT/HCPCS: 76700

== ENCOUNTER 2025-02-21 14:36 | Outpatient (OUT) | payer MEDICARE, SELFPAY ==
--- OUTSIDE RECORDS SUMMARY | 2023-10-18 08:40 | XMS_ITS ---
Author Organization [facility] Address [address] [place] [address] Care Team Providers Care Research Psychologist Name Role Phone Merrill Kaufman Primary Care Provider Jas Correa Unavailable [phone] REASON FOR VISIT left knee pain recheck Encounters Encounter Location Date Provider Diagnosis [facility] Office [address] [facility] [place] [address] 10/18/2023 Jas Kelly Plan Of Treatment No Information Progress Notes * CYRILRUPERT MARY JO LDOB:[birth year] (69 yo F)Acc No.[id number]:10/18/2023 Patient:?MARY JO ROBLES Paul :?MICHAEL OscarOB:1955???Age:67 Y ???Sex:FemaleDate:10/18/2023hone:[phone]:[address] [place], [id number]:Merrill Kaufman Subjective: * Chief Complaints: * 1 . Left knee pain recheck. * Medical History: Objective: * Vitals: Assessment: Plan: * Treatment: Forms: * Images: * Electronic signature of Jas Kelly DO on 02/21/2025 at 02:42 PM ESTSign off status: Pending * Provider: Jaecy Kelly DO Date: 0 10/18/2023 Generated for Printing/Faxing/eTransmitting on:?02/21/2025 02:42 PM EST
--- OUTSIDE RECORDS SUMMARY | 2025-02-07 03:45 | XMS_ITS ---
Author Organization The [facility] in [place] Address [address] [place] [address] Care Team Providers Care Community Health Program Coordinator Name Role Phone Stanton Yoon Primary Care Provider [phone] Allergies Allergen (clinical drug ingredient) Drug/Non Drug Allergy documented on EMR Reaction Allergy Type Onset Date Status Levaquinsevere muscle achesDrug AllergyActiveNon-steroidal anti-inflammatory agent (FN)NSAIDsGI INTOLERANCEDrug AllergyActivesucralfateSucralfateGI intoleranceDrug AllergyActive Results Component Value Reference Range Notes XR KNEE LT 3V Reviewed date:02/07/2025 04:56:10 PM Interpretation: Performing Lab: Notes/Report: Source Facility: [place] [address] [place] [address] XRay Report Signed Patient: SHANIQUE CAMARGO MR#: [id number] : 1955 Acct:[id number] Age/Sex: 69 / F ADM Date: 02/07/25 Loc: RAD Attending Dr: Katelyn Yoon M.D. Ordering Physician: Katelyn Yoon M.D. Date of Service: 02/07/25 Procedure(s): XR knee LT 3V Accession Number(s): [id number] cc: Katelyn Yoon M.D. [place] [address] Patient Name: SHANIQUE CAMARGO MRN: [facility]:[id number] date: 1955 Sex: F Assigned Patient Location: [facility] Current Patient Location: [facility] Accession/Order Number: [id number] Exam Date: 02/07/2025 09:55 Report Date: 02/07/2025 [...] Mckoy M.D. 02/07/2025 10:22 AM Dictation Location: [employer] Electronically authenticated by: [id number] Y Date: 02/07/2025 10:22 Dictated By: Xiomara Mckoy M.D. 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: REASON FOR VISIT left knee pain- felt [...] Pain of left knee re stacia (finding) ([id number]) Knee pain, left (M25.562) Activeconfirmed Vital Signs Weight 153.2 lbs 02/07/2025 Height 61 in 02/07/2025 Blood pressure systolic 120 mm Hg 02/08/20 25 Blood pressure diastolic 84 mm Hg 025 BMI 28.94 kg/m2 02/07/2025 Encounters Encounter Location Date Provider Diagnosis [facility] [address] [place] [address] 02/07/2025 Stanton Yoon Knee pain, left M25.562 [...] Shanique CAMARGO LDOB:[birth year] (69 yo F)Acc No.[id number]:02/07/2025 Progress Note Patient: Shanique DOLAN :?Katelyn Yoon ([facility]), MDDOB:1955???Age: 69 Y???Sex:FemaleDate:02/07/2025Phone:[phone]:[address], [id number] In:08:32 AM ESTCheck Out:09:14 AM EST Subjective: [...] Problem List J20.9 Acute bronchitis Modified On:01/28/2023U Status:zkosoiemxP27.90Acute sinusitis Modified On:01/06/2023U Status:qvxottqegA40.0Age-related osteoporosis without current pathological fracture Modified On:06/02/2023U Status:vyxdtaxvtM15.30Sciatic leg pain Modified On:07/08/2023U Status:mveummgbrB04.9Knee osteoarthritis Modified On:08/02/2023U Status:awdldurxqM36.13Epigastric abdominal pain Modified On:09/09/2023U Status:odzjrvqmvS38.90Diverticulosis Modified On:09/28/2023U Status:ppewemgvzN45.9GERD (gastroesophageal reflux disease) Modified On:10/29/2023U Status:uevmzrnasA70.9Abdominal pain Modified On:11/26/2023U Status:kspqfkfnbO00.10Upper abdominal pain Modified On:01/10/2024U Status:geigdpymtY00.10Knee osteoarthritis Modified On:01/19/2024U Status:srfbirzehC23.9Tubular adenoma Modified On:04/04/2024U Status:scpvznrwsP83.1Intestinal angina Modified On:04/20/2024U Status:cbayqfmsiL49.8Bile duct leak Modified On:04/21/2024U Status:dodvjdtdzD39.562Knee pain, left Modified On:02/07/2025U Status:confirmed * Medical [...] (Check Out) true * Provider: Jacey Yoon ([facility])MD Date: 1 04/10/2024 Generated for Printing/Faxing/eTransmitting on:?02/21/2025 02:43 PM EST History and Physical Notes * [...]
--- OUTSIDE RECORDS SUMMARY | 2025-02-19 08:45 | XMS_ITS ---
Author Organization [facility] [place] Address [address] [place] [address] Care Team Providers Care Oxygen Furnace Operator Name Role Phone Stanton Kaufman Primary Care Provider [phone] Allergies Allergen (clinical drug ingredient) Drug/Non Drug Allergy documented on EMR Reaction Allergy Type Onset Date Status Levaquinsevere muscle achesDrug AllergyActiveNon-steroidal anti-inflammatory agent (FN)NSAIDsGI INTOLERANCEDrug AllergyActivesucralfateSucralfateGI intoleranceDrug AllergyActive Results Component Value Reference Range Notes AMYLASE Reviewed date:02/19/2025 06:16:49 PM Interpretation: Performing Lab: Notes/Report: [facility] , Amylase 56 25-115 U/L Performing Lab:see noteML - [facility] LBCBC AUTO DIFF Reviewed date:02/19/2025 06:16:49 PM Interpretation: Performing Lab: Notes/Report: [facility] ,White Blood Count8.54.0-11.0 10 3/uLRed Blood Count4.774.20-5.40 10 6/uL Cnbmjicpvm51.112.0-16.0 g/aVNtbjdyhthn59.636.0-48.0 %Mean Corpuscular Wibmgq41.5 81.0-99.0 fLMean Corpuscular Kdhwjqkjqn40.626.7-34.0 pgMean Corpuscular HGB Conc 31.629.9-35.2 g/dLRed Cell Distribution Width12.611.0-15.0 %Platelet Uvbbu517 150-450 10 3/uLMean Platelet Epfqki44.59.5-13.5 fLNeutrophils Percent Auto48.6 43.0-75.0 %Lymphocytes Percent Auto35.920.5-60.0 %Monocytes Percent Auto11.51.7- 12.0 %Eosinophils Percent Auto3.30.9-7.0 %Basophils Percent Auto0.50.2-2.0 % Immature Granulocytes Pct Auto0.20.0-0.5 %Neutrophils Absolute Auto4.21.4-6.5 10 3/uLLymphocytes Absolute Auto3.11.2-3.8 10 3/uLMonocytes Absolute Auto1.00.3-0.8 10 3/uLEosinophils Absolute Auto0.30.0-0.7 10 3/uLBasophils Absolute Auto0.00.0- 0.1 10 3/uLImmature Granulocytes Abs Auto0.020.00-0.03 10 3/uLPerforming Lab:see noteML - [facility] LBLIPASE Reviewed date:02/19/2025 06:16:49 PM Interpretation: Performing Lab: Notes/Report: [facility] ,Lviurf66.016.0-77.0 U/LPerforming Lab:see noteML - [facility] LBPROF 14(COMP METB) Reviewed date:02/19/2025 06:16:49 PM Interpretation: Performing Lab: Notes/Report: [facility] ,Ntwrog639175-324 mmol/LPotassium3.93.5-5.1 mmol/SYriquuff14812-084 mmol/LCarbon Dwxwgui57.621.0-32.0 mmol/LAnion Gap11.5Zjojsvd3253-256 mg/dLBlood Urea Nitrogen 20.07.0-18.0 mg/dLCreatinine0.660.55-1.02 mg/dLEstimated GFR ( Shireen>60 >=60 mL/min/1.73m 2Estimated GFR (Non- Isela>60>=60 mL/min/1.73m 2BUN Creatinine Ratio30.7Hwybytw8.18.5-10.1 mg/dLBilirubin Total0.30.2-1.0 mg/dL Aspartate Amino Mgkrqicmsgc2842-13 U/LAlanine Zgcvrctaqayttdeu8252-09 U/L Alkaline Ccrghdpnhhu6033-953 U/LTotal Protein7.36.4-8.2 g/dLAlbumin Level3.73.4- 5.0 g/dLGlobulin3.6Albumin Globulin Ratio1.0Performing Lab:see noteML - [facility] REASON FOR VISIT stomach issues-ongoing, lower abdominal [...] alcohol in the p ast year? No Iyxfob6GxhhoeyagcnwveGgogdzzi Problems Problem Type SNOMED Code ICD Code Onset Dates Problem Status W/U Status Risk Notes Problem Gastroenteritis (20674825) Gastroenteriti s (K52.9) Activeconfirmed Vital Signs Weight 154 lbs 02/19/2025 Height 61 in 02/19/2025 Blood pressure systolic 124 mm Hg 02/20/20 25 Blood pressure diastolic 80 mm Hg 025 BMI 29.09 kg/m2 02/19/2025 Encounters Encounter Location Date Provider [facility] [address] [place] [address] 02/19/2025 Stanton Hoy Gastroenteritis K52. 9 Assessments Encounter Date Diagnosis (ICD Code) Assessment [...] East back into eating by eating bland, ypjo-ty-btylkh foods like crackers, toast, gelatin, bananas, rice and chicken. Try to avoid foods/substances including dairy products, caffeine, alcohol, nicotine and fatty or highly seasoned foods. Medications such as ibuprofen or tylenol can make your stomach more upset, so use sparingly if at all. Also avoid zkpc-bqu-fzzbdql anti-diarrheal medications because it can make it harder for your body to eliminate the virus. Plan Of Treatment Medication Medication Name Sig [...] East back into eating by eating bland, lhpe-hg-doqeky foods like crackers, toast, gelatin, bananas, rice and chicken. Try to avoid foods/substances including dairy products, caffeine, alcohol, nicotine and fatty or highly seasoned foods. Medications such as ibuprofen or tylenol can make your stomach more upset, so use sparingly if at all. Also avoid abkz-cxj-yxajpde anti-diarrheal medications because it can make it harder for your body to eliminate the virus. Pending Test Test Name Order Date Urinalysis Microscopic 02/19/2025 CULTURE URINE 02/19/2025 US ABD 02/19/2025 Progress Notes * Shanique CAMARGO LDOB:[birth year] (69 yo F)Acc No.[id number]:02/19/2025 Progress Note Patient: Shanique DOLAN :?Merrill Kaufman ([facility]), MDDOB:1955???Age: 69 Y???Sex:FemaleDate:02/19/2025Phone:[phone]:[address], [place], [place]Sriyq In:01:34 PM ESTCheck Out:01:59 PM EST Subjective: * Chief Complaints: * S tomach issues-ongoing, lower abdominal pains after eating, indigestion * HPI: ???General:? abd pain - loose stol p no diarrhea -no fevers. ???Gastroenteritis:?The patient complains of?symptoms of the stomach flu.?The symptoms have been present for?1-2 days.?The symptoms are?moderate.?The patient?has not been exposed to sick contacts.?Symptomatic treatment has included?OTC medication.?Associated symptoms include?abdominal pain, diarrhea, stomach cramps, nausea, vomiting, chills, fever.? * ROS: ???General/Constitutional:?Recent Weight Gain?denies.?Skin:?Rash?denies.?Cardiovascular:?Edema?denies.?Palpitations?denies.?Gastrointestinal:?Comments?See HPI for details.? * Active Problem List J20.9 Acute bronchitis Modified On:01/28/2023U Status:inqebzgjiE84.90Acute sinusitis Modified On:01/06/2023 Status:pfnquvrwjS07.0Age-related osteoporosis without current pathological fracture Modified On:06/02/2023 Status:irwyibrjeK23.30Sciatic leg pain Modified On:07/08/2023U Status:wshyycyssB95.9Knee osteoarthritis Modified On:08/02/2023U Status:rrsbmgybbA83.13Epigastric abdominal pain Modified On:09/09/2023U Status:grwigpoyuD00.90Diverticulosis Modified On:09/28/2023U Status:hijlpzqpgV81.9GERD (gastroesophageal reflux disease) Modified On:10/29/2023U Status:uemczintlY77.9Abdominal pain Modified On:11/26/2023U Status:sdisqgprrP91.10Upper abdominal pain Modified On:01/10/2024U Status:ibccqckrtR61.10Knee osteoarthritis Modified On:01/19/2024U Status:wpukqgqwvP64.9Tubular adenoma Modified On:02/11/2025W/U Status:vaumincfmP43.1Intestinal angina Modified On:04/20/2024W/U Status:kftfwmkgoW14.8Bile duct leak Modified On:04/21/2024W/U Status:hgebkdzhwE46.562Knee pain, left Modified On:02/07/2025W/U Status:keclnwuuzX64.9Gastroenteritis Modified On:02/19/2025/U Status:confirmed * Medical History: * Surgical History: H ysterectomy 1989Tonsillectomy 1964Carpal Tunnel 2002Right Knee Surgery 11/12/15Left Knee Surgery 01/12/16Hernia Repair EGD 11/24/2023gallbladder removed 12/13/23Colonoscopy, polyp x3- Dr Diggs 03/2024EGD 05/10/24 * Hospitalization/Major Diagno stic Procedure: N o Hospitalization History. * Family History: F ather: , COPD. [...] past year??No ?Points?0 ?Interpretation?Negative * Medications: T akingRABEprazole Sodium 20 MG Tablet Delayed Release 1 tablet after a meal Orally twice a day Medication List reviewed and reconciled with the patientTaking RABEprazole Sodium 20 MG Tablet Delayed Release 1 tablet after a meal Orally twice a day Medication List reviewed and reconciled with the patient * Allergies: L evaquin: severe muscle aches - Side Effects - Criticality HighNSAIDs: GI INTOLERANCE - Allergy - Criticality HighSucralfate: GI intolerance - Allergy - Criticality Highno[Allergies Verified] Objective: * Vitals: W t:154lbs, Ht: 61 [...] lymphadenopathy.? Assessment: * Assessment: 1.?Gastroenteritis - K52.9 (Primary)??? Plan: * Treatment: Start Voquezna Tablet, 10 [...] East back into eating by eating bland, wqbr-ne-dajhkv foods like crackers, toast, gelatin, bananas, rice and chicken. Try to avoid foods/substances including dairy products, caffeine, alcohol, nicotine and fatty or highly seasoned foods. Medications such as ibuprofen or tylenol can make your stomach more upset, so use sparingly if at all. Also vjpfhpywv-wuq-oapciab anti- diarrheal medications because it can make it harder for your body to eliminate the virus.??2.?Others?LAB: Urinalysis Microscopic ?LAB: CULTURE URINE ?LAB: AMYLASE [...] & Time - 02/19/2025 02:23 PM) * Procedure Codes: * Preventive Medicine: ??Screenings/Counseling:?BMI ACTION PLAN?Above Normal BMI Follow-up?Dietary management education, guidance, and counseling ?FALL RISK SCREENING?Fall Risk Assessment:?No falls in the past year * * Sign off status: CompletedVisit Status:?CHK (Check Out) true * Provider: Jacey Kaufman (TTC)MD Date: 1 Generated for Printing/Faxing/eTransmitting on:?02/21/2025 02:43 PM EST [...]
--- OUTSIDE RECORDS SUMMARY | 2025-02-20 09:09 | XMS_ITS ---
Author Organization [facility] in [place] Address [address] [place] [address] Care Team Providers Care Wiring Technician Name Role Phone Stanton Kaufman Primary Care Provider REASON FOR VISIT US Encounters Encounter Location Date Provider Diagnosis [facility] [address] [place] [address] 02/20/2025 Stanton Kaufman Screening for tuberculosis Z11.1 Assessments Encounter Date Diagnosis (ICD Code) Assessment Notes Treatment Notes Treatment Clinical Notes Section Notes 02/20/2025 Screening for tuberculosis (ICD- 10 - Z11.1) Plan Of Treatment Pending Test Test Name Order Date QUANTIFERON TB GOLD PLUS 02/20/2025 XR CHEST 2 V 02/20/2025 Progress Notes * Shanique CAMARGO LDOB:[birth year] (69 yo F)Acc No.[id number]:02/20/2025 Patient:?Shanique CAMARGO :1955???Age:69 Y???Sex:FemalePhone:[phone] Address[facility] [place], [address] Subjective: * Chief Complaints: * U S * Medical History: * Surgical History: * Hospitalization/Major Diagno stic Procedure: * Medications: Objective: * Vitals: * Physical Examination: ??? Assessment: * Assessment: 1.?Screening for tuberculosis - Z11.1 (Primary)??? Plan: * Treatment: ?LAB: QUANTIFERON TB GOLD PLUS ?Imaging: XR CHEST 2 V * Procedure Codes: * true * Date:?Generated for Printing/Faxing/eTransmitting on:?02/21/2025 02:43 PM EST
--- OUTSIDE RECORDS SUMMARY | 2025-02-21 14:41 | XMS_ITS | CCD ---
Author Organization [facility] CliniSyut Care Team Providers Care Design Supervisor Name Role Phone ALEJANDRO, DR ALLEY Beasley [...] Unavailable MD Katelyn Kaufman Primary Care Provider [phone] DO Jas Kelly Attending Provider Katelyn Kaufman Primary Care Physician [phone] Katelyn Kaufman MD Primary Care Provider [phone] DO Jatin Hayden Attending Provider Jatin [...] of OnsetReaction(s) Facility (11 sources)levoFLOXacin; Translations: [levofloxacin]Drug Yuwdjsm36-48-0733 Muscle pain (finding), [facility] [place] (9 sources)Non-steroidal anti-inflammatory agent; Translations: [NSAIDs] Propensity to adverse -48-1797TW intoleranceNONH Healthcare (7 sources)Sucralfate; Translations: [sucralfate]Drug Lbgvnte32-29-1443VW intoleranceNONH Healthcare (5 sources)Dicyclomine; Translations: [dicyclomine]Drug Nxprdiz03-76-6765 Abdominal pain (finding)[facility] (5 sources)Famotidine; Translations: [famotidine]Drug Wnenimk31-54-0346Zxldugude pain (finding)[facility] (5 sources)Hyoscyamine; Translations: [L-hyoscyamine]Drug Assvosw05-15-7673 Abdominal pain (finding)[facility] (4 sources)Metoclopramide; Translations: [metoclopramide]Drug AllergyDyssomnia (disorder), Chest pain (finding)[facility] (3 sources)Sucralfate; Translations: [sucralfate]Drug Zxrwwyj04-57-6309 Constipation (disorder)[facility] (1 source)Metoclopramide; Translations: [METOCLOPRAMIDE HCL]Drug Allergy 77-76-1819AdsgaszfovTuscarawas Hospital Repository (1 source)NSAIDs; Translations: [NSAIDS (NON-STEROIDAL ANTI-INFLAMMATORY DRUG)] Propensity to adverse reactions to drug (disorder)95-42-6451JbplqecklbTuscarawas Hospital Repository Medications Current Medications MedicationDrug Class(es)DatesSig (Normalized)Sig (Original)cefdinir (1 source)Cephalosporin AntibacterialStart: 24-77-2262fnkkipct See Instructions, unsure of dosage, takes 1 by mouth BID Oral, Refills(s) 0 Start Date: 04/12/24 Status: Ordereddexlansoprazole 30 mg delayed release oral capsule (2 sources)Proton Pump InhibitorStart: 40-20-0766pxfs 1 capsule by mouth once dailyDexilant 30 mg oral delayed release capsule 30 mg = 1 cap(s), Oral, Daily, # 30 cap(s), Refills(s) 0, Pharmacy: [facility], 157.4, cm, 03/22/24 12:37:00 EST, Height/Length Dosing, 70.1, kg, 03/22/24 12:37:00 EST, Weight Dosing Start Date: 03/22/24 Status: Orderedhyoscyamine sulfate 0.125 mg oral tablet (8 sources)Start: 66-41-8055otjx 1 tablet by mouth every four hourshyoscyamine 0.125 mg oral Tab = 1 tab(s), Oral, q4hr, Refills(s) 0 Start Date: 03/22/24 Status: OrderedStart: 77-04-3104rdmt 1 tablet under the tongue every four hours as neededhyoscyamine (Anaspaz) 0.[address] 0.125 mg under the tongue every 4 (four)hours if needed 11/29/2023 ActiveStart: 99-44-4994kucw 1 tablet by mouth every four hours as needed for painhyoscyamine 0.125 mg oral Tab 0.125 mg = 1 tab(s), Oral, q4hr, PRN abdominal pain, Refills(s) 0 Start Date: 11/03/23 Status: Orderedondansetron 4 mg disintegrating oral tablet (8 sources)Serotonin-3 Receptor AntagonistStart: 30-11-2912beoq 1 tablet by mouth three times daily [...] release oral tablet (9 sources)Proton Pump InhibitorStart: 97-15-4823Dasxntrh 40 mg Tab-DR = 1 tab(s), Oral, Daily, Refills(s) 0, Control of stomach acid Start Date: 03/22/24 Status: OrderedStart: 60-45-8488qbeb 1 tablet by mouth once dailyProtonix 40 mg Tab-DR 40 mg = 1 tab(s), Oral, Daily, Refills(s) 0 Start Date: 11/03/23 Status: OrderedMiralax (1 source)Osmotic LaxativeStart: 68-40-1632XmzpCze 1 packet(s), Oral, Daily, Refill(s) 0 Start Date: 04/12/24 Status: Ordered Problems Active Problems Problem ClassificationProblemDateDocumented DateEpisodic/ChronicAbdominal pain (20 sources)Left lower quadrant pain; Translations: [Periumbilical pain]Onset: 47-21-8887RhcjthntHfimvxg tract disease (2 sources)Disease of biliary tract, unspecified; Translations: [Disease of biliary tract, unspecified]Onset: 66-20-6142SeiudmoAvwdppc tract disease (2 sources)Biliary dyskinesia; Translations: [Other specified diseases of gallbladder]72-96-3538XsyuwjfyZfvtvituyftamn and diverticulitis (4 sources)Diverticulosis of sigmoid yprmk01-06-6599MhaeryyUjmncxxdei disorders (7 sources)Gastroesophageal reflux disease without esophagitis; Translations: [Gastro-esophageal reflux disease without esophagitis]Onset: 64-73-4272Ejfukxf Gastrointestinal hemorrhage (5 sources)Hemorrhage of rectum and anus; Translations: [Hemorrhage of anus and rectum]Onset: 11-25-8741HpmzvwneDnupdhwucjyocj (10 sources)Unilateral primary osteoarthritis, right knee; Translations: [Primary osteoarthritis of right knee]ChronicOsteoporosis (4 sources)Qdteqybleqsr32-76-9407OsgmlutQerpn and unspecified benign neoplasm (4 sources)Lipoma of brgh80-65-2386BybzuwqxIxpzb connective tissue disease (4 sources)Presence of left artificial knee joint; Translations: [History of arthroplasty of left knee]ChronicOther connective tissue disease (4 sources)Presence of right artificial knee joint; Translations: [History of arthroplasty of right knee]ChronicOther connective tissue disease (2 sources)Presence of artificial knee joint, bilateralChronicOther gastrointestinal disorders (5 sources)Irritable bowel syndrome characterized by constipation; Translations: [Irritable bowel syndrome with constipation]Onset: 63-41-1622RlakjkmHyktq gastrointestinal disorders (5 sources)Burping; Translations: [Eructation]Onset: 55-04-8914KuayyofcVnhvp gastrointestinal disorders (2 sources)Digestive system finding; Translations: [Other specified symptoms and signs involving the digestivesystem and abdomen]Onset: 81-90-1403NclubyiuEyrmg gastrointestinal disorders (3 sources)Defecation zfsbqamgq48-52-9485ImlccywoKehqh nutritional; endocrine; and metabolic disorders (1 source)Obesity, unspecified; Translations: [OBESITY UNSPECIFIED]Onset: 93-60-5489ApwactzAefqj nutritional; endocrine; and metabolic disorders (1 source)Body mass index (BMI) 31.0-31.9, adult; Translations: [BODY MASS INDEX BMI 31.0-31.9 ADULT]Onset: 41-49-3292RdtcrqoXshbs nutritional; endocrine; and metabolic disorders (4 sources)Lrtlbbwtzs48-15-4219JgkdyqzbFxomc nutritional; endocrine; and metabolic disorders (4 sources)Overweight in adulthood with body mass index of 25 or more but less than 6887-76-9182PvsafdwuAvurx screening for suspected conditions (not mental disorders or infectious disease) (4 sources)Encounter for screening mammogram for malignant neoplasm of breast; Translations: [ENC SCR MAMMO MALIG NEOPLASM BREAST]Onset: 87-94-8391Kanmutfu Peripheral and visceral atherosclerosis (2 sources)Chronic vascular disorders of intestine; Translations: [Chronic vascular disorders of intestine]Onset: 08-17-9668UlvmepxKtiwrzpg codes; unclassified (1 source)Family history of malignant neoplasm of digestive organs; Translations: [FAM HX MALIG NEOPLASM DIGESTIV ORGN]Onset: 38-84-7558Rolijfjn Residual codes; unclassified (2 sources)Family history of malignant neoplasm of digestive organ; Translations: [Family history of malignantneoplasm of digestive organs]Onset: 13-49-3973FvmtoklbYliszspx codes; unclassified (1 source)FH: Gastrointestinal disease; Translations: [Family history of other diseases of the digestive system]Onset: 25-51-0227VtuoedcbPjvlsrzz codes; unclassified (2 sources)Acquired absence of organ; Translations: [Acquired absence of other specified parts of digestive tract]Onset: 07-83-1746UtacdpwfLmbqqwsn codes; unclassified (3 sources)Family history of cancer of -07-8172XdnmcnprDtczgbrfwsls (1 source)PERSONAL HISTORY OF COVID-19; Translations: [PERSONAL HISTORY OF COVID-19]Onset: 00-58-3525Vmjjchqvcvso (1 source)CONTACT W/AND (SUSP) EXPOS COVID-19; Translations: [CONTACT W/AND (SUSP) EXPOS COVID-19]Onset: 58-93-8081Rvbhqlgfjyyo (4 sources)Irreducible left inguinal -64-9958Duzrhkhlxiop (4 sources)Left femoral jcckis06-58-5700Kyuonxs tract infections (4 sources)Acute msxyxzam33-62-5259Aznolxex Past or Other Problems Problem ClassificationProblemDateDocumented DateEpisodic/ChronicAbdominal hernia (5 sources)Unilateral inguinal hernia, without obstruction or gangrene, not specified as recurrent; Translations: [Unilateral femoral hernia, with obstruction, without gangrene, not specified as recurrent]Onset: 09-04-2020 EpisodicE Codes: Natural/environment (1 source)Bitten by dog, initial encounter; Translations: [BITTEN BY DOG INITIAL ENCOUNTER]Onset: 14-65-5542LstphhpkEplqshqnsafvb and screening for infectious disease (1 source)Encounter for immunization; Translations: [ENCOUNTER FOR IMMUNIZATION] Onset: 55-05-2970QnabjmwgZkqu wounds of extremities (4 sources)Open bite of left hand, initial encounter; Translations: [OPEN BITE LEFT HAND INITIAL ENC]Onset: 72-68-6510EenubhblOmwk wounds of extremities (1 source)Open bite of right hand, initial encounter; Translations: [OPEN BITE RIGHT HAND INITIAL ENC]Onset: 06-88-8605ZkggpxyqTahlh connective tissue disease (4 sources)Pain in right finger(s); Translations: [PAIN IN RIGHT FINGERS]Onset: 58-90-6534GhauwtxtQstez gastrointestinal disorders (1 source)Other intra-abdominal and pelvic swelling, mass and lump; Translations: [OTH INTRA-ABD PELV SWELL MASS LUMP]Onset: 04-93-9356Btxnzqvv Spondylosis; intervertebral disc disorders; other back problems (1 source)Sciatica, left side; Translations: [Sciatica, left side]Onset: 19-71-0479XgiqfaomOcxsdjlrvff injury; contusion (5 sources)Other superficial bite of left forearm, initial encounter; Translations: [Other superficial bite ofright forearm, initial encounter]Onset: 38-51-9168MjavdelxFfhugnolkgzu (4 sources)Patient encounter -63-2042Neyvhotuxepu (4 sources)Severe acute respiratory syndrome coronavirus 2 pkgkpofr48-25-2348 Unclassified (3 sources)Family history of yhbjpzvqwqcsqpa88-90-4945 Results Test NameValueInterpretationReference RangeFacilityHISTOLOGY - TISSUE EXAMon 15-49-7905AHF AP ASR DISCLAIMERThe interpretation of this case [...] under the Clinical Laboratory Improvement Amendments of 1998.[facility] HospitalComment on above:Performed By: #### [id number] #### [facility] (BEAKER) [address] [place], [place] [address]YCT AP CASE REPORTNormalUniversKindred Hospital Lima Comment on above:Result Comment: Surgical Pathology Case: [id number] Authorizing Provider: Fawad Pacheco MD Collected: 05/10/2024 0827 Ordering Location: Shef[facility] Bolaños Received: 05/10/2024 1153 [facility] Pathologist: Elena Oakley MD Specimens: A) - Small Intestine, Duodenum, r/o duodenal B) - Gastric, r/o h. pyloriPerformed By: #### [id number] #### [facility] ([facility]) [address] [place], [place] [address]IBS AP CLINICAL INFORMATIONOrder DiagnosesNormalUniParkview Health Bryan HospitalComment on above:Result Comment: K83.9 - Bile leak [ICD-10-CM] R10.11 - RUQ abdominal pain [ICD-10-CM] K55.1 - Intestinal angina [ICD-10-CM]Performed By: #### [id number] #### [facility] ([facility]) [address] [place], [place] [address]DQN AP GROSS DESCRIPTIONNormalUniParkview Health Bryan HospitalComment on above:Result Comment: A. Small Intestine, Duodenum. The specimen is received in formalin labeled Shanique Canter and duodenum tissue. It consists of 6 pieces of her-pink irregular mucosal tissue ranging from 0.2 cm to 0.4 cm in greatest dimension. Thespecimen is submitted in toto in 1 cassette. Candis Mckenna, Pathologists' Farmworker Dairy student Abdirahman Chambers, Pathologists' Farmworker Dairy B. Gastric. The specimen is received in formalin labeled Shanique Canter and gastric tissue. It consists of 7 pieces of her-pink irregular mucosal tissue ranging from 0.2 cm to 0.5 cm in greatest dimension. The specimen is submitted in toto in 1 cassette. Candis Mckenna, Pathologists' Farmworker Dairy student Abdirahman Chambers, Pathologists' AssistantPerformed By: #### [id number] #### [facility] ([facility] [address] [place], [place] [address]ZAF AP MICROSCOPIC DESCRIPTIONMicroscopic examination performed. [facility] HospitalComment on above:Performed By: #### [id number] #### [facility] ([facility]ER) [address] [place], [place] [address]FAF AP REPORT FINAL DIAGNOSIS NARRATIVENormalUniversity of Nexus Children'S Hospital HoustonComment on above:Result Comment: A. Small bowel, duodenum, biopsy: - Duodenal mucosa with features suggestive of peptic injury. - No features of celiac disease noted. B. Stomach, biopsy: - Chronic gastritis with reactive changes. - Immunostain for Helicobacter pylori is negative. - No evidence of intestinal metaplasia or dysplasia. Performed By: #### [id number] #### [facility] (BEAKER) [address] [place], [place] [address]UPbq 23-25-8102AWYyamouj Of Present Illness Shanique Camargo is a [...] and endoscopic ultrasound to assess the pancreaticobiliary system.NormalUnTuscarawas HospitalPOCT GLUCOSE METER UNSOLICITED RESULTSon 36-63-6163Wnftpcx [Mass/Vol]101 mg/zYDumidz08-432LevhdexxtwTuscarawas HospitalComment on above:Order Comment: Waived Testing in the ED is performed under the ED CLIA certificate #[id number].Result Comment: [email or web address] Performed By: #### [id number] #### [facility] (BE[facility]ER) [address] [place], [place] [address]Aifx for Procedureon 52-07-6881Iydp for [id number] Shanique Camargo 1955 F Date Provider Department Center 05/01/2024 [facility] No family history on fileNormalUniversity of Nexus Children'S Hospital HoustonAmbulatory Visit Summaryon 89-02-2395Wrggzavkaa Visit SummaryAmbulatory Visit Summary SHANIQUE CAMARGO :1955 [...] you for choosing us for your care. [facility] SouthGastroenterology Office/Clinic Noteon 94-15-9196Izuapviimmfhqstx Office/Clinic NoteGastroenterology Office/Clinic Note Chief Complaint follow [...] Daily, # 30 cap(s), Refills(s) 0, Pharmacy: [facility], 157.4, cm, 03/22/24 12:37:00 EST, Height/Length [...] Neutrophils Percent Auto: 61.7 (more content not included)...[facility] SouthComment on above: Result Comment: Electronically Signed By: Dontae DA SILVA, Josseline Lorenzo\.br\Date and Time Signed: 04/12/2512:50 ESTRjanae 75-20-0788OlbpbywrcYcaojhyvl From: Juliet Vang MA To: [facility] - Reminders/Recalls; Sent: 04/11/2024 10:38:54 EST Show up: 02/22/2027 10:38:00 EST Subject: Ambulatory Reminder Due Date/Time: 03/29/2027 10:38:00 EST Reminder/Recall Colon recall [address] Diggs 03/29/24NoOhio [facility] Hospitalurgical Pathology Reporton 04-03-2024 [address] [address]- Surgical Pathology Report Collected Date/Time: 03/29/2024 10:22 [...] Entire specimen submitted in one cassette. () [facility] Microscopic Description Microscopic examination performed unless gross only specified. This report was transcribed using voice recognition technology and might contain unintended computerized carton wrapper errors.[facility] SouthComment on above:Performed By: #### [id number] #### [facility] [address] [place] [address]Xzvb OR Intraoperative Recordon 61-34-9223Lnmn OR Intraoperative RecordMain OR Intraoperative Record IntraOp Document Type FT Summary Primary Physician: Josseline Diggs MD Finalized Date/Time: 03/30/24 11:33:38 Pt. Name: CYRILRUPERTSHANIQUE D.O.B./Sex: 1955 Female Med Rec #: [id number] Physician: Josseline Diggs MD Financial #: [id number] Pt. Type: O Room/Bed: / Admit/Disch: 03/29/24 [...] Entry 2 Entry 3 Case Attendee Jer ACOUSTICAL MATERIAL WORKER, Josue Shabazz, Laura Guevara GENERAL ENGINEER, Suma Whiting Role Performed ACOUSTICAL MATERIAL WORKER Scrub - Primary Staff - Other Time [...] RN, Kala Role Performed Surgeon - Primary Oil Burner Mechanic - Primary Time In 03/29/24 10:12:00 03/29/24 [...] Randle CRNA, Given Participants Laura Shabazz, Paola GENERAL ENGINEER, Dontae Hong MD, Josseline Lorenzo, Kala Vicente [...] and tissue Entry 1 Skin Integrity Intact, Shelton, Warm, & Skin Abnormality No Dry Outcomes Met? Yes Last Modified By: Kala Vicente RN 03/29/24 10:17:53 Post-Care Text: The patient is free from signs and symptoms of injury caused by extraneous objects Patient Positioning FT Pre-Care Text: Identifies physical alterations that require additional precautions for procedure-specific positioning, verifies presence of prosthetics or corrective devices, positions the pat (more content not included)...[facility] SouthDischarge Instructions on 37-41-0769Eiwlgmpfj InstructionsDischarge Instructions SHANIQUE CAMARGO :1955 Visit Date:03/29/2024 [...] PM EST With: Josseline Diggs MD Where: [facility] [address] [address]- New Follow Up Appointments after Discharge Follow Up with Dontae DA SILVA, Josseline Lorenzo, [facility] When: Comments: office will call for follow up Where: [address], [address] [place] [phone] Medications What How Much When Why Instructions [...] on caring for yourself [facility]. Your doctor may also give you specific [...] doctor tells you ot (more content not included)...NormalVan Wert County HospitalComment on above:Result Comment: Electronically Signed By: [...] NTND Impression and Plan Diagnosis: Rectal bleeding -colonoscopyNormalVan Wert County HospitalMain OR PACU II Recordon 03-29-2024 Main OR PACU II RecordMain OR PACU II Record PACU Phase II Document Type FT Summary Primary Physician: Josseline Diggs MD Finalized Date/Time: 03/29/24 11:20:01 Pt. Name: SHANIQUE CAMARGO /Sex: 1955 Female Med Rec #: [id number] Physician: Josseline Diggs MD Financial #: [id number] Pt. Type: O Room/Bed: / Admit/Disch: 03/29/24 [...] Signatures Signed By: Roxie Raphael RN 03/29/24 11:20NormalVan Wert County HospitalMain OR Preoperative Recordon 83-30-8272Axnx OR Preoperative RecordMain OR Preoperative Record Holding Area Document Type FT Summary Primary Physician: Josseline Diggs MD Finalized Date/Time: 03/29/24 09:50:24 Pt. Name: SHANIQUE CAMARGO Paul Ac/Sex: 1955 Female Med Rec #: [id number] Physician: Josseline Diggs MD Financial #: [id number] Pt. Type: O Room/Bed: / Admit/Disch: 03/29/24 [...] Signatures Signed By: Brianna Moyer RN 03/29/24 09:50NoACMC Healthcare SystemOperative Reporton 07-08-3290Tpyyxokak ReportOperative Report Patient: SHANIQUE CAMARGO Age: 68 years Sex: Female : 1955 Associated Diagnoses: None Author: Josseline Diggs MD Pre-Procedure Procedure Date 03/29/2024 10:34:00 . Procedure Type: Colonoscopy with removal of tumor(s), polyp(s), or other lesion(s) by cold snare technique. Procedure provider Performed by Josseline Diggs MD. Current history and physical Documented on chart. Gallbladder (01352098) on 12/14/2023 at 67 Years. Comments: 03/22/2024 12:33 Carin Toro EGD - esophagogastroduodenoscopy (6000831678) on 11/24/2023 at 67 Years. Repair of left inguinal hernia (3927118345) on 09/04/2020 at 64 Years. Colonoscopy and biopsy of colon (1541800734) on 04/21/2019 at 63 Years. Comments: 04/26/2019 13:24 Polo Wolf Hyperplastic polyp Colonoscopy normal (929406640) on 02/23/2004 at 48 Years. Total abdominal hysterectomy (719437926). Bilateral replacement of knee joints (0828731134). Release of carpal tunnel for median nerve decompression (00449499). Tonsillectomy, primary or secondary; younger than age 12 (37111).. Past Medical History Resolved Encounter for screening colonoscopy (179332318): Resolved. Cystitis, acute (424035433): Resolved. COVID-19 virus detected (1729447915): Resolved. FH: cholecystectomy (4753317757): Resolved.. Family History Primary malignant neoplasm of colon Mother Hypertension Mother COPD Father Mother . Procedure History Gallbladder (39246603) on 12/14/2023 at 67 Years. Comments: 03/22/2024 12:33 EST - Carin Knight A removal EGD - esophagogastroduodenoscopy (1126689150) on 11/24/2023 at 67 Years. Repair of left inguinal hernia (1357741932) on 09/04/2020 at 64 Years. Colonoscopy and biopsy of colon (3594223783) on 04/21/2019 at 63 Years. Comments: 04/26/2019 13:24 EST - Polo Rivera Hyperplastic polyp Colonoscopy normal (361933369) on 02/23/2004 at 48 Years. Total abdominal hysterectomy (098548557). Bilateral replacement of knee joints (9688303991). Release of carpal tunnel for median nerve decompression (89153498). Tonsillectomy, primary or secondary; younger than age 12 (26107).. Colorectal neoplasm risk assessment Average risk. Informed [...] Oral, Daily, # 30 cap(s), Refills(s)0, Pharmacy: [facility], 157.4, cm, 03/22/24 12:37:00 EST, Height/Length [...] Rec1_hd_video_2024__[id number].jpg Rec1_hd_video__T10_36_35_151.jpg Rec1_hd_video_2024__05T10_35_35_946.jpg (Inserted (more content not included)...[facility] SouthComment on above:Result Comment: Electronically Signed By: Dontae DA SILVA, Josseline Lorenzo\.br\Date and Time Signed: 03/29/2509:36 ESTOther Comment: Missing Attachment - attachment storage system not supported [id number] Can be viewed in source system Missing Attachment - attachment storage system not supported [id number] Can be viewed in source systemMissing Attachment - attachment storage system not supported [id number] Can be viewed in source systemMissing Attachment - attachment storage system not supported [id number] Can be viewed in source systemMissing Attachment - attachment storage system not supported [id number] Can be viewed in source systemMissing Attachment - attachment storage system not supported [id number] Can be viewed in source systemMissing Attachment - attachment storage system not supported [id number] Can be viewed in source systemMissing Attachment - attachment storage system not supported 4699389 Can be viewed in source system Missing Attachment - attachment storage system not supported 1255668 Can be viewed in source systemMissing Attachment - attachment storage system not supported 7794934 Can be viewed in source systemAmbulatory Visit Summaryon 48-81-0289Gbpexmnfqq Visit SummaryAmbulatory Visit Summary SHANIQUE CAMARGO :1955 [...] With: Dontae DA SILVA, Josseline Lorenzo Where: [facility] [address] [facility] [address] [place] [address]- Medications What How Much When Why Instructions New dexlansoprazole (Dexilant 30 mg oral delayed release capsule) 1 Capsules By Mouth Every day Abdominal pain GERD (gastroesophageal reflux disease) Family history of colon cancer Irritable bowel syndrome with constipation Belching Pickup at [facility] Unchanged hyoscyamine (hyoscyamine 0.125 mg oral [...] physician if questions or concerns Pharmacy Information [facility]: [address] [place], [place] [id number] [phone] Allergies Reglan (Sleep disturbance, Chest pain) dicyclomine [...] you for choosing us for your care. [facility] SouthGastroenterology Office/Clinic Noteon 20-40-5893Zecdnnrcqrxdfijn Office/Clinic NoteGastroenterology Office/Clinic Note Chief Complaint Patient [...] HEENT: atraumatic normocephalic Cardiovascular: (more content not included)...[facility] Comment on above:Result Comment: Electronically Signed By: Dontae DA SILVA, Josseline Lorenzo\.br\Date and Time Signed: 03/22/2512:09 ESTLon 64-49-0104NYanysjui: [id number] Received: 12/16/23 Status: LUIS Mitchell Num: [id number] Spec Type: Surgical Subm Dr: Jatin Hayden DO Tissues: A Gallbladder (GB) Procedures: HE, Gross/Micro L3 Age/ Patient Sex Location Account Attending Physician RamanShanique Paul 67/F LABELL [id number] Jatin Hayden DO SPEC NUM: [id number] RECD: 12/16/23 STATUS: LUIS MITCHELL NUM: [id number] ROSENDO: 12/14/23 SUBM DR: Jatin Hayden DO ENTERED: 12/16/23 [facility] DR: Javed,Lab SPEC TYPE: Surgical DEPT: KATY SHETTY ENTERED BY: [id number] RECV BY: [id number] ORDERED: HE, Gross/Micro L3 ORDERED: HE, Gross/Micro [...] The mucosal surface is green and velvety. Pattern Puncher sections are submitted in cassette A1. Microscopic Description Microscopic examination is performed. Specimen: [id number] Received: 12/16/23 Status: LUIS Mitchell Num: [id number] Spec Type: Surgical Subm Dr: Jatin Hayden DO Tissues: A Gallbladder (GB) Procedures: Debo SALGUERO/Crystal L3 Patient: Shanique Camargo [id number] (Continued) Specimen: [id number] Received: 12/16/23 (Continued) Signed (signature on file) Nghia Ramirez MD 12/21/23 1056 Specimen: [id number] Received: 12/16/23 Status: LUIS Mitchell Num: [id number] Spec Type: Surgical Subm Dr: Jatin Hayden DO Tissues: A Gallbladder (GB) Procedures: Debo SALGUERO/Crystal L3 Patient: Shanique Camargo [id number] (Continued) Specimen: [id number] Received: 12/16/23 (Continued) CPT Codes 16372 Specimen: [id number] Received: 12/16/23 Status: LUIS Mitchell Num: [id number] Spec Type: Surgical Subm Dr: Jatin Hayden DO Tissues: A Gallbladder (GB) Procedures: NICO, Debo/Crystal L3 Patient: Shanique Camargo [id number] (Continued) Signed (signature on file) Nhgia Ramirez MD 12/21/23 1056Normal [facility] Physician GroupAmbulatory Visit Summaryon 08-29-5489Fnbhjbaiez Visit SummaryAmbulatory Visit Summary SHANIQUE CAMARGO :1955 [...] you for choosing us for your care. [facility]MG MAMM SCREEN 3D TERA CADon 33-00-2933LP MAMM SCREEN 3D TERA CADPatient: SHANIQUE CAMARGO Exam Date: 07/04/2021 : 1955 Gender:F Ordering : DR KATELYN KAUFMAN . Admission #: [id number] Family : Order #: [id number] CLICK HERE TO VIEW EXAM RADIOLOGY REPORT [...] cancer at age 70. LOCATION: [facility] BREAST COMPOSITION: Almost entirely fatty. [...] by: Edmond Caal MD on 07/04/2021 at 15:03[facility] Covid-19 PCR (CVDTBH)on 78-51-9454LZEY-CoV-2 (COVID-19) RNA JESSENIA+probe Ql (Unsp spec)Not detectedNormalNOT DETECTEDThe [facility] HospitalComment on above:Result Comment: This test is not yet approved or cleared by the [place] FDA. When there are no FDA-approved or cleared tests available, and other criteria are met, FDA can make tests available under an emergency access mechanism called an Emergency Use Authorization (EUA). The EUA for this test is supported by the [employer] of Health and Human Service's (HHS's) declaration [...] consistent with SARS-CoV-2.Performed By: #### CVDTBH #### [facility] [address] [place] [address] Josef Salgado 09-12-9504Edasyxxofum peptide B (Bld) [Mass/Vol]168.0 pg/mL Normal<=900.0The [facility] HospitalComment on above:Performed By: #### BNP, CMP #### [facility] [address] [place] [address] Josef IbarraenCBC AUTO DIFFon 73-96-0141XBVH #0.0 103/ulNormal0.0-0.1The [facility] Falls HospitalComment on above:Performed By: #### CBC ####[facility] [address] [place] [address] 53[address]Nbmsxv KarenBasophils/100 WBC (Bld)0.6 %Normal0.2-2.0The [facility] HospitalComment on above:Performed By: #### CBC ####[facility] Elt[address] [place], [place] [address]Gerken KarenEO #0.1 103/ulNormal0.0-0.7The [facility] HospitalComment on above:Performed By: #### CBC ####[facility] Nxgnuhtsxi[address] [place], [place] [address]Gerken KarenEosinophils/100 WBC (Bld)0.9 %Normal 0.9-7.0The [facility] HospitalComment on above:Performed By: #### CBC ####[facility] Nhitil[address] [place], [place] [address]Gerken Xiomaar Erythrocyte distribution width (RBC) [Ratio]12.7 %Hwjdnx18.0-15.0The [facility] HospitalComment on above:Performed By: #### CBC ####[facility] J[address] [place], [place] [address]Gerken KarenHematocrit (Bld) [Volume fraction]40.3 %Ylmaib58.0-48.0The [facility] HospitalComment on above: Performed By: #### CBC ####[facility] Q[address] [place], [place] [address]Gerken KarenHemoglobin (Bld) [Mass/Vol]12.9 g/dLNormal 12.0-16.0The [facility] HospitalComment on above:Performed By: #### CBC ####[facility] Rzedljunev[address] [place], [place] [address]Gerken KarenIG #0.01 10e3/ulNormal0.00-0.03The [facility] HospitalComment on above: Performed By: #### CBC ####[facility] Aobjbauvkx[address] [place], [place] [address]Gerken KarenIG %0.1 %Normal0.0-0.5The [facility] HospitalComment on above:Performed By: #### CBC ####[facility] Renpqrroqj[address] [place], [place] [address]enBERTRAND CHAFFEE HOSPITALH #2.4 103/ul Normal1.2-3.8The [facility] HospitalComment on above:Performed By: #### CBC ####[facility] F[address] [place] [address] KarenLymphocytes/100 WBC (Bld)34.5 %Mjctqr43.5-60.0The [facility] HospitalComment on above:Performed By: #### CBC ####[facility] Fohyqyijqx[address] [place] [address] KarenMANUAL DIFF REQNONormalThe [facility] HospitalComment on above:Performed By: #### CBC ####[facility] Vdrt[address]gbm[address] [place] [address] (RBC) [Entitic mass]30.0 vtRaecks65.7-34.0The [facility] HospitalComment on above: Performed By: #### CBC ####[facility] Usxwuycf[address] [place] [address] (RBC) [Mass/Vol]32.0 g/dLNormal 29.9-35.2The [facility] HospitalComformerly [facility] on above:Performed By: #### CBC ####[facility] Jqfzkfcetc[address] [place] [address] (RBC) [Entitic vol]93.7 pZJeqcym41.0-99.0The [facility] HospitalComment on above:Performed By: #### CBC ####[facility] Lttpe[address] [place] [address] KarenFREEMAN HEALTH SYSTEMO #0.7 103/ulNormal0.3-0.8The [facility] HospitalComment on above:Performed By: #### CBC ####[facility] Jykrefesey[address] [place] [address] KarenMonocytes/100 WBC (Bld)9.3 %Normal1.7-12.0The [facility] HospitalComment on above:Performed By: #### CBC ####[facility] Tndexdmzdf[address] BeverlyUT #3.8 103/ulNormal1.4-6.5The [facility] HospitalComment on above:Performed By: #### CBC ####[facility] Bfqgguaxsd[address] KarenNeutrophils/100 WBC (Bld)54.6 %Normal 43.0-75.0The [facility] HospitalComment on above:Performed By: #### CBC ####[facility] Fmyjpbwvwe[address] KarenPlatelet mean volume (Bld) [Entitic vol]11.0 fLNormal9.5-13.5The [facility] HospitalComment on above:Performed By: #### CBC ####[facility] Pvnmnndcrm[address]0 [address] QssjgIRJ404 103/ul Mmcrnv952-481Aji [facility] HospitalComment on above:Performed By: #### CBC ####[facility] Qqkshfqoae6028 [address] KarenRBC4.30 106/ulNormal4.20-5.40The [facility] HospitalComformerly [facility] on above: Performed By: #### CBC ####[facility] Uc[address] [place] [address] KarenWBC7.0 103/ulNormal4.0-11.0The [facility] HospitalComformerly [facility] on above:Performed By: #### CBC ####[facility] R[address] [place] [address] KarenD-DIMERon 20-26-8573C-DIMER0.25 mg/L FEUNormal0.19-0.50The [facility] on above:Performed By: #### DDIM #### [facility] [address] KarenD-DIMER COMMENTSSEE BELOWNormalThe [facility] HospitalComment on above:Result Comment: Increases in D-Dimer concentration [...] generalized hospitalization. Performed By: #### DDIM #### [facility] [address] [place] [address] Josef KarenPROF 14(COMP METB)on 39-88-3205Vcimpjc [Mass/Vol]3.8 g/dLNormal 3.5-5.0[facility] Samaritan HospitalComment on above:Performed By: #### BNP, CMP #### [facility] [address] [place] [address] Josef KarenAlbumin/Globulin [Mass ratio]1.2 {ratio}NormalGood Samaritan Hospital Comment on above:Performed By: #### BNP, CMP #### [facility] [address] [place] [address] Josef KarenALP [Catalytic activity/Vol]81 U/VPjnapa80-063SguGood Samaritan Hospital Comment on above:Performed By: #### BNP, CMP #### [facility] [address] [place] [address] Josef KarenALT [Catalytic activity/Vol]22 U/LNormal9-52The [facility] Comment on above:Performed By: #### BNP, CMP #### [facility] [address] [place] [address] Josef KarenAnion gap [Moles/Vol]11.9 mmol/LNormalGood Samaritan HospitalComment on above:Performed By: #### BNP, CMP #### [facility] [address] [place] [address] Josef KarenAST [Catalytic activity/Vol]18 U/LCancgm57-50EucGood Samaritan Hospital Comment on above:Performed By: #### BNP, CMP #### [facility] [address] [place] [address] Josef KarenBilirubin [Mass/Vol]0.4 mg/dLNormal0.2-1.3The [facility] Comment on above:Performed By: #### BNP, CMP #### [facility] [address] [place] [address] Josef KarenCalcium [Mass/Vol]8.7 mg/dLNormal8.4-10.2The [facility] Comment on above:Performed By: #### BNP, CMP #### [facility] [address] [place] [address] Josef KarenChloride [Moles/Vol]104 mmol/TIgusoz45-156Pow [facility] Comment on above:Performed By: #### BNP, CMP #### [facility] [address] [place] [address] Josef KarenCO2 [Moles/Vol]29.1 mmol/UIfkyqo35.0-30.0The [facility] Comment on above:Performed By: #### BNP, CMP #### [facility] [address] [place] [address] Josef KarenCreatinine [Mass/Vol]0.59 mg/dLNormal0.52-1.04The [facility] Comment on above:Performed By: #### BNP, CMP #### [facility] [address] [place] [address] Josef KarenEGFR-AF MONEGASQUE>60Normal>=60The [facility] HospitalComment on above: Performed By: #### BNP, CMP #### [facility] [address] [place] [address] Josef KarenEGFR-NON AF MONEGASQUE>60Normal>=60The [facility] HospitalComment on above:Performed By: #### BNP, CMP #### [facility] [address] [place] [address] Josef KarenGlobulin (S) [Mass/Vol]3.3 g/dLNormalThe [facility] HospitalComment on above:Performed By: #### BNP, CMP #### [facility] [address] [place] [address] Josef KarenGlucose [Mass/Vol]72 mg/dLCritically lfr56-800Pkp [facility] Comment on above:Performed By: #### BNP, CMP #### [facility] [address] [place] [address] Josef KarenPotassium [Moles/Vol]4.0 mmol/LNormal3.4-5.0The [facility] Comment on above:Performed By: #### BNP, CMP #### [facility] [address] [place] [address] Josef KarenProtein [Mass/Vol]7.1 g/dLNormal6.1-8.2The [facility] HospitalComment on above:Performed By: #### BNP, CMP #### [facility] [address] [place] [address] Josef KarenSodium [Moles/Vol]141 mmol/XYsfkxt509-486Hpq [facility] Comment on above:Performed By: #### BNP, CMP #### [facility] [address] [place] [address] Josef KarenUrea nitrogen [Mass/Vol]20.0 mg/dLCritically high7.0-17.0The [facility] HospitalComment on above:Performed By: #### BNP, CMP #### [facility] [address] [place] [address] Josef KarenUrea nitrogen/Creatinine [Mass ratio]33.9 mg/mgNormalThe [facility] HospitalComment on above:Performed By: #### BNP, CMP #### [facility] [address] [place] [address] Josef KarenCREATININEon 92-93-1090Hbdxwmjxbe [Mass/Vol]0.63 mg/dLNormal 0.52-1.04The [facility] HospitalComment on above:Performed By: #### CREA #### [facility] [address] [place] [address] Josef KarenEGFR-AF MONEGASQUE>60Normal>=60The [facility] HospitalComment on above: Performed By: #### CREA #### [facility] [address] [place], [place] [address] Josef IbarraenEGFR-NON AF MONEGASQUE>60Normal>=60[facility] Samaritan HospitalComment on above:Performed By: #### FUENTES #### [facility] [address] [place], [place] [address] Josef IbarraenCT PELVIS W CONon 53-45-7073HX PELVIS W CONEXAMINATION: CT PELVIS W CON [...] Electronically authenticated by: ALLEY ALLEN Date: 2020-07-25 14:11[facility] Vital Signs Date TimeVital SignValuePerforming JgexkbajePiydcalh15-55-9050 13:28-0500Blood Pressure RachelMomaine Diggs 280-1167Spqpjg-XhuoiCincinnati Shriners Hospital02-19-2025 13:28-0500Diastolic blood fydmptmc44 mm[Hg]Josseline Diggs 805-8195Ohotzx-KlnrxCincinnati Shriners Hospital02-19-2025 13:28-0500Heart rate80 /minJosseline Diggs 100-4807Wxeree-AjcooCincinnati Shriners Hospital02-19-2025 13:28-0500Respiratory rate14 /minMohamad Mouchli 180-7665Jzcpvw-Yvcze[address] [place], [place] 58[address]-19-2025 13:28-0500Systolic blood wxxivmel079 mm[Hg]Mohamad Mouchli 367-8926Wqrkdw-Zybvq[address] [place], [place] 5850[address]-05-2025 11:05-0500Diastolic blood kkkgwejc48 mm[Hg]Mohamad Mouchli [address] [place], [place] 1272102-05-2025 11:05-0500Heart rate80 /minMohamad Mouchli [address] [place], [place] 1272102-05-2025 11:05-0500 Respiratory rate18 /minMohamad Mouchli [facility]02-05-2025 11:05-2053IxN4% (BldA) [Mass fraction]94 %Mohamad Mouchli [facility]02-05-2025 11:05-0500 Systolic blood vbwemboq038 mm[Hg]Mohamad Mouchli [facility]02-05-2025 10:50-0500 Diastolic blood prckawax90 mm[Hg]Mohamad Mouchli [facility]02-05-2025 10:50-0500Heart rate65 /minMohamad Mouchli [facility]02-05-2025 10:50-0500 Respiratory rate20 /minMohamad Mouchli [facility]02-05-2025 10:50-0440YuK4% (BldA) [Mass fraction]96 %Mohamad Mouchli [facility]02-05-2025 10:50-0500 Systolic blood mm[Hg]Mohabbeyd Mouchli [address] [place], [place] 12[address]102-05-2025 10:40-0500 Diastolic blood yxkmujxl98 mm[Hg]Mohamad Mouchli [address] [place], [place] 1272102-05-2025 10:40-0500Heart rate64 /minMohamad Mouchli [address] [place], [place] 1272[address]-05-2025 10:40-0500 Respiratory rate20 /minMohamad Mouchli [address] [place], [place] 1272102-05-2025 10:40-1288CsS0% (BldA) [Mass fraction]97 %Mohamad Jeffuchli [address] [place], [place] 1272102-05-2025 10:40-0500 Systolic blood qlcqaise772 mm[Hg]Mohamad Mouchli [address] [place], [place] 1272[address]-05-2025 10:36-0500Body oiskxbstocj55.88 [degF]Mohamad Mouchli [address] [place], [place] 12[address]-05-2025 09:46-0500Blood Pressure LocationMohamad Mouchli [address] [place], [place] 1272102-05-2025 09:46-0500Body ictjfoznzlr25.52 [degF]Mohamad Mouchli [address] [place], [place] 12[address]-05-2025 09:46-0500 Respiratory rate16 /minMohamad Mouchli [address] [place], [place] 127[address]01-29-2025 12:43-0500Blood Pressure LocationMohamad Mouchli 300-4619Qlzhum-IfiagBrecksville [facility] Ghqkfi82-43-1228 12:43-0500Diastolic blood fzcajtse45 mm[Hg]Mohamad Mouchli 979-0188Atqupf-UhxdiCincinnati Shriners Hospital01-29-2025 12:43-0500Heart rate81 /minJosseline Diggs 285-1191Gsvbug-UtgmyCincinnati Shriners Hospital01-29-2025 12:43-0500Systolic blood onokofmx722 mm[Hg]Josseline Diggs 974-6516Oyclnn-TgaguCincinnati Shriners Hospital11-04-2024 12:51-0500Body .5 cmJatin Hayden DO Work Phone: [phone] [place], [place] 3575511-04-2024 12:51-0500Body mass index (BMI) [Ratio]27.62 kg/m2Jatin Vogelett DO Work Phone: [phone] [place], [place] 3575511-04-2024 12:51-0500Body ezkmzd91.49 kgKyopal Hayden DO Work Phone: [phone] [place], [place] 3575511-04-2024 12:51-0500Diastolic blood ksaxxvmt09 mm[Hg]Jatin Hayden DO Work Phone: [phone] [place], [place] 35[address]11-04-2024 12:51-0500Heart rate83 /min Jatin Hayden DO Work Phone: [phone] [place] [address]-04-2024 12:51-0500Respiratory rate12 /minJatin Hayden DO Work Phone: [phone] [place] [address]-04-2024 12:51-5805BnK4% (BldA) [Mass fraction]96 %Jatin Nolberto DO Work Phone: [phone] [place], [place] [address]Fmjgfuejmc70-14-0016 12:51-0500Systolic blood mm[Hg]Jatin Nolberto DO Work Phone: [phone] [place], [place] 3575510-14-2024 10:57-0400Body kyktfv764.4 cmJatin Nolberto DO Work Phone: [phone] [place] [address]-14-2024 10:57-0400Body mass index (BMI) [Ratio]29.88 kg/m2Jatin Hayden DO Work Phone: [facility] CenterOcezgjbrzg62-15-0302 10:57-0400Body lkboyl37.4 kg Jatin Hayden DO Work Phone: [facility]OLiber[facility] HospitalBvibcbiufg18-51-2810 10:57-0400Diastolic blood hwhojdze87 mm[Hg]Jatin Hayden DO Work Phone: [facility]OLiberty HospitalXmakolceas70-96-1731 10:57-0400Systolic blood ygjbxwbx643 mm[Hg]Jatin Hayden DO Work Phone: [facility] CenterDljkjlnqzo62-24-6834 15:08-0400Blood Pressure LocationMichael NILL 175-8443Rejdxx-Xksww General Surgery Bquwfghi50-41-8808 15:08-0400Diastolic blood mksejuxv88 mm[Hg]Hayes NILL 823-5885Iusneb-Sjxnw General Surgery Qdpprpib80-06-1917 15:08-0400Heart rate70 /minMichael NILL 953-9552Lamjpy-Nftbm General Surgery Bcvbpknq72-15-3106 15:08-0400Respiratory rate16 /minMichael NILL 404-5164Uqhzrd-Rhnce General Surgery Sopdngtq67-81-6681 15:08-0400Systolic blood hsaizvlz134 mm[Hg]Hayes NILL 333-4126Ovbibd-JshbaDayton Children'S Hospital Encounters Encounter DateEncounter TypeCare ProviderFacilityStart: 12-12-2024 End: 75-83-5718Rrxlryoqs identifierAdolph Kristel Ortiz Jr Work Phone: JIS Indian LakeStart: 72-69-3915ydjpswhkufAgignl Kristel Ortiz JrJIS OrthopedicsStart: 05-10-2024 End: 33-35-0192tigjcdbrloWSCLPAC [facility] Systemtart: 04-12-2024 End: 26-07-0349ggcjlfxpfuBzpobni A. MouchliFacility:Merly DHStart: 04-12-2024 End: 36-72-0042Irvsidg encounter procedureMomaine Diggs 384-6889Fnrsgi-YqtnzBrecksville [facility] Start: 03-29-2024 End: 06-44-8599rtfybeylniPxblrzv A. MouchliFacility:FTMCStart: 03-29-2024 End: 96-80-0441Klszawz encounter procedureMomaine Diggs [facility] Start: 03-22-2024 End: 24-65-0511zrwtuxpaucIiihmdo A. MouchliFacility:Mer[facility] DHStart: 03-22-2024 End: 61-93-4538Qlwomis encounter procedureJosseline Diggs 000-6565Hjadtd-BvinyBrecksville Va [facility] Start: 57-99-4633kkgzzshcdsAuiseoop Talal Sarmini Facility:Mer[facility] DHStart: 53-34-9103tppgooseikFnjtqwni Sarmini Facility:Mer[facility] DHStart: 12-27-2023 End: 65-40-3477Zsgijx flowsheetKyle Nolberto DO Work Phone: [facility] BW GENSStart: 12-27-2023 End: 74-10-6165Dkmhwb flowsheetKyle Nolberto DO Work Phone: [facility] BW GENSStart: 12-27-2023 End: 24-62-9746Hnkcgl follow up visit related to original pxKyle Nolberto DO Work Phone: [facility] BW GENSComment on above:Status post cholecystectomy (Primary Dx)Start: 12-27-2023 End: 12-98-0052kvtamicjpoUFSK NOLBERTONot AvailableStart: 12-14-2023 End: 66-83-5209wxndiawgswZjyt NolbertoCorey Hospital Ctr Work Phone: Start: 12-14-2023 End: 26-24-0408Rraputkg ReferredDO Jatin Hayden Work Phone: [facility]-LAB Path Spec [place] HospStart: 12-06-2023 End: 93-65-0106Sghrmy flowsheetJatin Hayden DO Work Phone: [phone] BWM GENSStart: 12-06-2023 End: 93-03-4893Pyrary flowsheetJatin Hayden DO Work Phone: [facility] BWM GENSStart: 12-06-2023 End: 80-12-6508Cykpad outpatient new 45 minutesKyopal Hayden DO Work Phone: [facility] BWM GENSComment on above:Biliary dyskinesia (Primary Dx)Start: 12-06-2023 End: 54-36-4662cmilccmvkkILVQ NOLBERTONot AvailableStart: 11-24-2023 End: 77-62-0583updpuwvuyeDengdst R NILLFacility:CD:[id number]: 11-16-2023 End: 84-09-1998uhnyrnpqevOuwogvi R NILLFacility:GS BellevueStart: 11-16-2023 End: 27-51-9861Andowwx encounter procedureMichael R NILL [phone]-Amevk General Surgery Javed Start: 09-14-2023 End: 65-84-6608kzcpektezjVV Katelyn M Hoy Work Phone: [facility] Work Phone: Start: 09-14-2023 End: 54-59-7493Ywxcjtoigx RecurringMD Katelyn Hoy Work Phone: [facility]-Physical Therapy [place] CreekStart: 07-04-2021 End: 12-10-2379fpagmqfiuhTM KATELYN HOYFacility:S7Edrki: 06-18-2021 End: 55-52-0212Ydkcpv outpatient new 30 minutesAdolph V Angel Ulrich Work Phone: J[facility] [place] LakeStart: 03-10-2021 End: 45-88-0321krfgpgexmyZM KATELYN HOMitaFacility:W8Msnim: 33-19-6015Qwadibdcz for preprocedural laboratory examinationDR HAYES AUDInico Combs HospitalStart: 09-04-2020 End: 95-86-6917tcyqrctcdgEA MICHAEL NILLFacility:X7Utqio: 08-31-2020 End: 16-03-8054ofphfjnixhWR MICHAEL NILLFacility:Y1Ewcxk: 08-31-2020 End: 70-31-8932Ojakpbbrh for preprocedural laboratory examinationDR HAYES BOLDEN Facility:E6Umhae: 09-86-5674Syrwktlid for preprocedural cardiovascular examinationDR HAYES James [facility] HospitalStart: 08-22-2020 End: 32-95-6622hwrqgpolpeLH MICHAEL NILLFacility:Q3Gvsut: 07-25-2020 End: 11-68-4157cmkesuxtmkNC MICHAEL NILLFacility:H0Evmls: 07-12-2020 End: 01-36-9599hwharyytgfEZ STEVEN R ZIEBERFacility:H1 Procedures DateProcedureProcedure DetailPerforming ClinicianStart: 74-65-7830Wpzgvfqvdqn Josseline Diggs Comment on above:divertiulosis t/o colon, polyps x3, and large IHStart: 87-08-5952Uslmwqdbjkj structure (body structure)Josseline Diggs Comment on above:removalStart: 11-24-2023 EsophagogastroduodenoscopyJosseline Diggs Start: 06-18-2021 End: 10-28-8900Qiplvgkloo examination knee 3 viewsAdolph Angel Ulrich MDStart: 72-13-9885Kncgcx of left inguinal herniaMichael NILL Start: 34-93-7124Pwbnlrarqsa and biopsy of colonMichael NILL Comment on above:Hyperplastic polypStart: 09-23-2016 MammographyKyopal Hayden DO Work Phone: start: 05-01-1524Velhfgdwyjp normal (finding)Hayes NILL Bilateral replacement of knee jointsMichael NILL Decompression of median nerveMichael NILL History of cholecystectomyStatus post cholecystectomy Jatin Hayden DO Work Phone: History of cholecystectomyS/P cholecystectomyMohamad Mouchli Tonsillectomy primary/secondaryMichael NILL Total abdominal hysterectomyMichael NILL Plan of Treatment DateCare ActivityDetailAuthorStart: 86-91-1073Atxakd, ShaniqueOrthoAllimarybeth [facility] Work Phone: Start: 12-27-2023 End: 35-26-0948Vfapwbc encounter orgrwyixd71/04/2024 1:00 PM EST Office Visit [facility] [address] [facility] [address] [place] [address] Jatin Hayden DO [address] [place] [address] ArrivedNOMS BWM GENSComment on above: ArrivedStart: 12-06-2023 End: 33-33-0897Pcgvfjo encounter ztthwxzea54/14/2024 11:00 AM EDT Office Visit [facility] [address] [facility] [address] [place] [address] Jatin Hayden DO [address] [place] [address] ArrivedMOUNTAIN WEST MEDICAL [facility]ENTER GENSComment on above: ArrivedStart: 50-54-6513Qisofwppz vaccinationInfluenza Vaccine (#1)[facility] HealthcareStart: 92-94-4005Yvnhfnoqzgtk Vaccine: 65+ Years (1 of 1 - PCV) Pneumococcal Vaccine: 65+ Years (1 of 1 - PCV)[facility] HealthcareStart: 09-23-2017 Screening for malignant neoplasm of breastMammogramNONH HealthcareStart: 37-97-4528Rqwooxznl for malignant neoplasm of colonNONH Healthcare Immunizations Immunization DateImmunizationNotesCare IzctvnjkYlrwuejx91-59-8747kjqzepgah virus vaccine, unspecified formulationMohamad Mouchli [phone]-GvvtkBrecksville [facility] Epjpub28-41-9691 SARS-CoV-2 (COVID-19) mRNA BNT-162b2 vaxMohamad Mouchli [phone]-CwcapBrecksville [facility] Zzqlan72-91-0184 SARS-CoV-2 (COVID-19) mRNA BNT-162u0 vaxMohamad Mouchli [phone]-VaoybBrecksville Va [facility] Gdjxln59-84-7660 influenza virus vaccine, unspecified formulationKyopal Hayden DO Work Phone: [phone]-JvicnBrecksville Va [facility] Digest[facility] HealthNEGATED: Highlighted row has not occurred!21-58-3753jacexyaqr virus vaccine, live, attenuated, for intranasal useMichael NILL [phone]-Upirt [facility] [place] Payers DatePayer CategoryPayerPolicy [id number]-[id number] [id number] (Managed Care)[employer] MEDICARE [id number] Health [id number] 1962Medicare [id number] [id number] 2.160.1.782248.3.57[id number] 2.0.1.975219.3.57[id number] 2.16840.1.175806.3.579.2.41168-18-2516Gfooqcq7215050 2.16840.1.930572.3.57[id number] 2.16840.1.312969.3.579.[id number] 2.0.1.846476.3.579.2.25372-57-8595Ieimhyf0686786 2.16840.1.987660.3.579.2.40128-39-2087Zeyyzgk4672156 2.16840.1.905237.3.579.2.288306-79-4112Ltrzxjw9328655 2.16840.1.713316.3.579.2.1[id number] 2.16840.1.937762.3.579.2.31532-36-6321Rjofxoq31967139 2.16.840.1.267709.3.579.2.[id number] 2.16.840.1.455228.3.579.[id number] 2.16.840.1.280996.3.579.2.[id number] 2.16.840.1.360757.3.579.[id number] 2.16.840.1.315847.3.579.2.96976-67-7215Belvbgi8903433 2.16.840.1.835857.3.57[id number] 2.16.840.1.760308.3.579.2.670Izmtbjo21581694 2.16.840.1.934424.3.579.2.531 Social History DateTypeDetailFacilityTobacco smoking status NHISUnknown if ever smokedTrihealth Mccull[facility] Work Phone: Start: 65-55-2698Bew Assigned At BirthFeSt. Mary's [facility], [place] Campustart: 11-16-2023 End: 85-82-4866Ouyohvi smoking statusNever smoked tobacco (finding)[facility] BellevueTobacco smoking statusNeverPremier Health Atrium Medical Center General Surgery BellevueSex Assigned At BirthFeBlanchard Valley Health System Blanchard Valley Hospitaltart: 44-42-4356Ssqzcrc smoking status NHISTobacco smoking consumption unknownNONH HealthcareStart: 37-99-2201Uce assigned at birthNot on fileNONH HealthcareStart: 22-79-1153Berllpi intakeAlcohol Use DetailsOrthoAlliance of NebraskaStart: 63-21-0522Xllrun OrientationChoose not to discloseOrthoAlRegency Meridian Functional Status BbkwJnawwxfkgxCjdessToukueqv47-72-9799Adcoutqest StatusN/[facility] Siadjx62-90-9997Svmgambwlg StatusN/[facility]01-29-2025Functional StatusN/[facility] Health 34-66-2011Iqavellajw StatusN/[facility] Surgery Javed Clinical Notes 07-12-2020 to 05-10-2024 Note Date & RdlqFxonJpcpzguc48-51-6796 NotePatient: Shanique Canter Procedure Summary Date: 05/10/24 Room / Location: [facility] Endoscopy Anesthesia Start: 809 Anesthesia Stop: 858 [...] PACU per anesthesia protocol. No notable events documented.[facility]03-19-2025 Note Patient: Shanique Canter Procedure Summary Date: 05/10/24 Room / Location: [facility] Endoscopy Anesthesia Start: 809 Anesthesia Stop: Procedure: EUS (UPPER) W/ EGD Diagnosis: Bile leak RUQ abdominal pain Intestinal angina Scheduled Providers: Fawad Pacheco MD; Christopher Álvarez MD; MAGALI Bernal Responsible Provider: Christopher Álvarez MD Anesthesia Type: MAC ASA Status: 2 Anesthesia Post Transport Note Transport to: Shefali PACU O2 Route: room air Patient Monitor: direct observation Transport: uneventful Patient condition is: stableMercy Health Springfield Regional [facility] Center03-19-2025 Note Patient: Shanique Camargo Procedure Information Date/Time: 05/10/24 0845 Scheduled providers: Fawad Pacheco MD; Christopher Álvarez MD; MAGALI Bernal Procedure: EUS (UPPER) W/ EGD Location: [facility] Invasive Surgery [place] Endoscopy Relevant Problems Anesthesia (within normal limits) [...] patient. Plan discussed with CAA. Additional Equipment RequestsMercy Health Springfield Regional Medical Center02-05-2025 Evaluation + Plan noteExtracted from:Title:NAA Post-operative Note---General JoizaAuthor:Hayes Johnson MDDate:03/29/24 Plan Transfer/Discharge: Transfer/Discharge Discharge when meets criteria ( From PACU to floor ). Extracted from:Title:ANES Pre-operative Note - EndoAuthor:Hayes Johnson MD Date:03/29/24 Plan [place] Society of Anesthesiologists (ASA) physical status classification: Class II. Anesthetic Preoperative Plan: Anesthesia General, and -TIVA. Future Appointments Appointment Date:04/10/2024 01:30:00 PM Scheduled Provider:Josseline Diggs MD Location:[facility] Digestive Health Appointment Type:[facility] Follow Up [facility] [id number] Hospital Discharge instructions Patient Education 03/29/2024 10:50:36 [...] unsweetened, w/added ascorbic acid 1 cup 0.5 Perley 1 cup 0.7 Vegetables Cooked Green beans 1 cup 4.0 Carrots 1/2 cup sliced 2.3 Peas 1 cup 8.8 Potato (baked, with skin) 1 medium potato 3.8 Raw [place] (with peel) 1 cucumber 1.5 Lettuce 1 [...] 8.7 Peanuts 1/2 cup 7.9 Chart from [facility] 2013. SEEK IMMEDIATE MEDICAL CARE IF: You [...] Nutrient Database for Standard Reference. Available at http://www.Fleck.usda.gov/fnic/foodcomp/search/. Information adapted from: ExitCare Patient Information 2009 InHiro. VarVee 2012 http://www.[employer]/contents/wolqizsuixbd-fkbzvux-svpmlu-the-basics 03/29/2024 10:50:33 Colon Polyps Colon Polyps Colon [...] hard liquor (44 mL). General instructions Take xniw-sph-kfwyvva and prescription medicines only as told by [...] provider. Document Revised: 05/29/2020 Document Reviewed: 05/29/2020 [employer] Patient Education 2023 Pango. Follow Up Care 03/22/2024 15:25:39 With:Dontae DA SILVA, FERMIN Adams, [facility] Address: [address] [place] [address], [address] [place] [address]- [phone] When: Unknown Comments:office will call for follow up [facility] 02-05-2025 NoteProgress Note-Physician Patient: SHANIQUE CAMARGO Age: 68 years Sex: Female : 1955 Associated Diagnoses: None Author: Hayes Johnson MD Postoperative Information Postoperative disposition: Postoperative disposition: To PACU. Optimetrix number: Optimetrix number [id number]. Anesthetic utilized: General. Health Status Allergies: Allergic [...] meets criteria ( From PACU to floor ).[facility]Comment on above:Result Comment: Electronically Signed By: Alex DA SILVA, Hayes Anton\.br\Date and Time Signed: 03/29/2509:50 [id number] NotePatient Education - Text Colonoscopy Care After [...] unsweetened, w/added ascorbic acid 1 cup 0.5 Perley 1 cup 0.7 Vegetables Cooked Green beans 1 cup 4.0 Carrots 1/2 cup sliced 2.3 Peas 1 cup 8.8 Potato (baked, with skin) 1 medium potato 3.8 Raw [place] (with peel) 1 cucumber 1.5 Lettuce 1 [...] 8.7 Peanuts 1/2 cup 7.9 Chart from [facility] 2 (more content not included)...[facility] 03-29-2024 NoteProgress Note-Physician Patient: SHANIQUE CAMARGO [...] Oral, Daily, # 30 cap(s), Refills(s)0, Pharmacy: [facility], 157.4, cm, 03/22/24 12:37:00 EST, Height/Length [...] All Problems Abdominal pain / SNOMED CT 87102199 / Confirmed Belching / SNOMED CT 974662303 / Confirmed Bleeding per rectum / SNOMED CT 692613436 / Confirmed BMI 28.0-28.9,adult / SNOMED CT 4160423614 / Confirmed Epigastric pain / SNOMED CT 886389005 / Confirmed Family history of colon cancer / SNOMED CT 976533381 / Confirmed Femoral hernia of left side / SNOMED CT 7604063264 / Confirmed GERD (gastroesophageal reflux disease) / SNOMED CT 034367514 / Confirmed Irreducible left inguinal hernia / SNOMED CT 1896918269 / Confirmed Irritable bowel syndrome with constipation / SNOMED CT 9212446061 / Confirmed Lipoma of skin / SNOMED CT 357814112 / Confirmed Osteoporosis / SNOMED CT 584857651 / Confirmed Overweight / SNOMED CT 592275086 / Confirmed Periumbilical pain / SNOMED CT 0777976619 / Confirmed S/P cholecystectomy / SNOMED CT 6761988751 / Confirmed Sigmoid diverticulosis / SNOMED CT 6162218490 / Confirmed Straining during bowel movements / SNOMED CT 73417863 / Confirmed Resolved: COVID-19 virus detected / SNOMED CT 8997478626 Resolved: Cystitis, acute / SNOMED CT 565249744 Resolved: Encounter for screening colonoscopy / SNOMED CT 210460277 Resolved: FH: cholecystectomy / SNOMED CT 8484832666 Canceled: Diverticular disease / SNOMED CT 7752385133 Canceled: Left inguinal hernia / SNOMED CT 414181310 Canceled: Mass of left inguinal region / SNOMED CT 9258588708, Active Problems (17) Abdominal pain Belching Bleeding per rectum BMI 28.0-28.9,adult Epigastric pain Family history of colon cancer Femoral hernia of left side GERD (gastroesophageal reflux disease) Irreducible left inguinal hernia Irritable bowel syndrome with constipation Lipoma of skin Osteoporosis Overweight Periumbilical pain S/P cholecystectomy Sigmoid diverticulosis Straining during bowel movements Histories Past Medical History: Resolved Encounter for screening colonoscopy (995224930): Resolved. Cystitis, acute (555763138): Resolved. COVID-19 virus detected (9495923634): Resolved. FH: cholecystectomy (2849349706): Resolved. Procedure history: Gallbladder (34854238) on 12/14/2023 at 67 Years. Comments: 03/22/2024 12:33 EST - Carin Knight A removal EGD - esophagogastroduodenoscopy (2262206450) on 11/24/2023 at 67 Years. Repair of left inguinal hernia (2740129564) on 09/04/2020 at 64 Years. Colonoscopy and biopsy of colon (0807726931) on 04/21/2019 at 63 Years. Comments: 04/26/2019 13:2 (more content not included)...[facility] HospitalComment on above:Result Comment: Electronically Signed By: Alex DA SILVA, Hayes Anton\.br\Date and Time Signed: 03/29/2508:54 [id number] History of Present illness Narrative* Jatin Hayden [...] you, Reese Hayden DO documented in this encounterLafayette Regional Health CenterDwdtltetlu33-52-3676 History of Present illness Narrative* Jatin Hayden [...] you, Reese Hayden DO documented in this encounterLafayette Regional Health CenterCbfoizyzgg17-32-5294 NoteGeneral Surgery Office/Clinic Note Chief Complaint consultation [...] mg Dis Tab, 4 (more content not included)...[facility] HospitalComment on above:Result Comment: Electronically Signed By: CASEY DA SILVA, Hayes Goodwin\Date and Time Signed: 11/16/23 15:49 [id number] NotePROCEDURE: XR HAND RT MIN 3V COMPARISON: 07/12/2020 hand HISTORY: Pain in right thumb FINDINGS: BONES:No acute fracture or dislocation. 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 No visible soft tissue swelling. EFFUSION:None visible. OTHER: Negative. IMPRESSION: Degenerative changes, no acute abnormality Electronically authenticated by: EDMOND CAAL Date: 2021-03-10 13:48[facility]07-14-2021 NoteOPERATIVE NOTE OPERATION DATE: 09-04-20 ANESTHETIC:General [...] Recovery Room in good condition. cc:Dr. Kaufman. [facility] Signed and Approved by: DR HAYES BOLDEN . 09/06/2020 08:06:00[facility]05-21-2021 NotePROCEDURE: XR HAND TERA MIN 3V [...] Electronically authenticated by: ALLEY ALLEN Date: 2020-07-12 13:58[facility] HospitalConsult note* Clinical Note Date No Information [facility] Work Phone: Discharge summary* Clinical Note Date No Information [facility] Work Phone: Evaluation + Plan note No data available for this section [facility] [place] Evaluation + Plan note Future Appointments Appointment Date:03/29/2024 10:30:00 AM Scheduled Provider: Location:[facility] Appointment Type:Surgery FT Appointment Date:04/10/2024 01:30:00 PM Scheduled Provider:Josseline Diggs MD Location:[facility] Digestive Health Appointment Type:[facility] Follow Up [facility] Evaluation + Plan noteBrecksville [facility] Evaluation noteNo assessment information available [facility] Work Phone: Evaluation note* Diagnosis Biliary dyskinesia- Primary Other specified disorder of gallbladder documented in this encounter [facility] HealthcareEvaluation [facility]* Diagnosis Status post cholecystectomy- Primary Other acquired absence of organ documented in this encounter [facility]* Type Assessment Date No Information [facility] Work Phone: History and physical note* Clinical Note Date No Information [facility] [employer] Work Phone: History of Present illness Narrative* Encounter Date Complaint History Of Prese nt Illness No Information [facility] [employer] Work Phone: Hospital Discharge instructions No data available for this section [facility] Instructions* Date Instruction Additional Infor mation No Information [facility] [employer] Work Phone: Progress note No data available for this section [facility] Progress note* Clinical Note Date No Information [facility] [employer] Work Phone: Reason for referral (narrative) , RUQ pain after cholecystectomy- Dr Gee- EUS Referred by: Dontae DA SILVA, Josseline Lorenzo [facility] Reason for referral (narrative)* Reason For Referral No Information [facility] [employer] Work Phone: Summary Purpose Family History Family [...] and content) DATE CREATED AUTHOR 07/12/2021 [facility] DATE CREATED AUTHOR AUTHOR'S ORGANIZ ATION 12/22/2023 [facility] DATE CREATED AUTHOR AUTHOR'S ORGANIZ ATION 12/28/2023 [facility] DATE CREATED AUTHOR AUTHOR'S ORGANIZ ATION 04/04/2024 [facility] DATE CREATED AUTHOR AUTHOR'S ORGANIZ ATION 04/05/2024 [facility] DATE CREATED AUTHOR AUTHOR'S ORGANIZ ATION 04/14/2024 [facility] DATE CREATED AUTHOR AUTHOR'S ORGANIZ ATION 05/16/2024 [facility] DATE CREATED AUTHOR AUTHOR'S ORGANIZ ATION 12/13/2024 [...] DateEnd Date Katelyn Kaufman MD [address] [place] [address] PCP - [facility] Fjzmolqg53/14/24Team MemberRelationshipSpecialtyStart Date End Date Katelyn Kaufman MD [address] [place] [address] PCP - [facility]12/06/23 Team Status: Inactive Member Role Status Dates Jatin Hayden DO Attending Provider Active Star t: December 14, 2023 End: December 14, 2023Team MemberRelationshipSpecialtyStart DateEnd Date Katelyn Kaufman MD [address] [place] [facility] [place] [address] PCP - [facility] Yqpebqom05/14/24 Name Effective Dates (start - stop) Status [...] BE BASED ON THE PRIMARY CLINICAL RECORDS. [facility]. provides no warranty or guarantee of the accuracy or completeness of information in this document.
--- OUTSIDE RECORDS SUMMARY | 2025-02-21 14:43 | XMS_ITS | Patient Health Record ---
Author Organization [facility] Address [address] [place] [address] Care Team Providers Care Interventionist Name Role Phone Merrill Kaufman Primary Care Provider Jas Correa Unavailable [phone] Reason For Referral No Information Problems Problem Type SNOMED Code ICD Code Onset Dates Problem Status W/U Status Risk Notes Problem Sciatica (10900257) Sciatica (M54.30) ActiveconfirmedProblemHistory of left knee replacement (7129420186119553)History of left knee replacement (Z96.652)Activeconfirmed Plan Of Treatment Pending Test Test Name Order Date PT/OT - Eval and Treat 08/16/2023 Insurance Providers Payer Name Payer Address Payer Phone Subscriber Number Group Number Insured Name Patient Relationship to Insured Coverage Start Date Coverage End Date [employer] MEDICARE [address] [address] [place] [address] [id number] MARY JO ROBLES Self - patient is the insured
--- OUTSIDE RECORDS SUMMARY | 2025-02-21 14:44 | XMS_ITS | Clinical Summary ---
Author Organization [employer] Address [facility] [address] [place] [address] Care Team Providers Care Inventory Administrator Name Role Phone Kalee Burden DO, Charles L Primary Care Provider Family History Medical HistoryRelationNameCommentsBreast cancerNeg Hx Social History Tobacco UseTypesPacks/DayYears UsedDateSmoking Tobacco: Never AssessedChildcare AnswerDate MqjihspgMjtogzfixTqvhzqs56/12/2019EmploymentAnswerDate Recorded DeormzjkszNgeaggc00/12/2019Purpose - LifeAnswerDate RecordedPurpose and direction in hhdkGezqccq28/11/2021CommentsUnknownSex and Gender InformationValueDate RecordedSex Assigned at BirthNot on fileLegal SexFemale 09/27/2014 11:29 AM EDTGender IdentityNot on fileSexual OrientationNot on file Plan of Treatment Not on file Medical Devices Not on file Insurance Care Teams Team MemberRelationshipSpecialtyStart DateEnd Date Wes Granda Jr., DO [facility] [place] [address] PCP - GeneralInternal Medicine09/23/16
--- OUTSIDE RECORDS SUMMARY | 2025-02-21 14:44 | XMS_ITS | Patient Health Record ---
Author Organization The [facility] in [place] Address [address] [place] [address] Care Team Providers Care Petroleum Engineer Name Role Phone Stanton Yoon Primary Care Provider [phone] Allergies Allergen (clinical drug ingredient) Drug/Non Drug Allergy documented on EMR Reaction Allergy Type Onset Date Status Levaquinsevere muscle achesDrug AllergyActiveNon-steroidal anti-inflammatory agent (FN)NSAIDsGI INTOLERANCEDrug AllergyActivesucralfateSucralfateGI intoleranceDrug AllergyActive Results Component Value Reference Range Notes UA (Urinalysis, Dipstix only - w/o micro) Reviewed date:06/14/2024 11:40:26 AM Interpretation: Performing Lab: Notes/Report: COLOR yellow Yellow - Ellie - CLARITYclearClear - ClearGLUCOSE-0 - 133 MG/DLALBUMIN-NEG - NEG MG/DLBILIRUBIN- NEG - NEG MG/DLSPECIFIC GRAVITY1.0201.001 - 1.035KETONES-NEG - NEG MG/DLBLOOD, UR-PH, UR55 - 9UROBILNOGEN-0.2 - 1 MG/DLNITRITE-NEG - NEGESTERASE (FERNANDA)-NEG - NEG MG/DLXR KNEE LT 3V Reviewed date:02/07/2025 04:56:10 PM Interpretation: Performing Lab: Notes/Report: Source Facility: [facility]-[address] [place] [address] [place] [address] XRay Report Signed Patient: SHANIQUE CAMARGO MR#: [id number] : 1955 Acct:[id number] Age/Sex: 69 / F ADM Date: 02/07/25 Loc: RAD Attending Dr: Katelyn Yoon M.D. Ordering Physician: Katelyn Yoon M.D. Date of Service: 02/07/25 Procedure(s): XR knee LT 3V Accession Number(s): [id number] cc: Katelyn Yoon M.D. [place] [address] Patient Name: SHANIQUE CAMARGO MRN: [id number] date: 1955 Sex: F Assigned Patient Location: [facility] Current Patient Location: [facility] Accession/Order Number: [id number] Exam Date: 02/07/2025 09:55 Report Date: 02/07/2025 [...] Mckoy M.D. 02/07/2025 10:22 AM Dictation Location: [place] [address] Electronically authenticated by: [id number] Y Date: 02/07/2025 10:22 Dictated By: Xiomara Mckoy M.D. 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: Tank Builder:AMYLASE Reviewed date:02/19/2025 06:16:49 PM Interpretation: Performing Lab: Notes/Report: [facility] ,Twhithi4303-152 U/LPerforming Lab:see noteML - [facility] LBCBC AUTO DIFF Reviewed date:02/19/2025 06:16:49 PM Interpretation: Performing Lab: Notes/Report: [facility] ,White Blood Count8.54.0-11.0 10 3/uLRed Blood Count4.774.20-5.40 10 6/uL Kiqnmuldpk85.112.0-16.0 g/zLSvimnbnqbp19.636.0-48.0 %Mean Corpuscular Vsnysd45.5 81.0-99.0 fLMean Corpuscular Uptgvdnyfp07.626.7-34.0 pgMean Corpuscular HGB Conc 31.629.9-35.2 g/dLRed Cell Distribution Width12.611.0-15.0 %Platelet Nraus348 150-450 10 3/uLMean Platelet Hxfvnc30.59.5-13.5 fLNeutrophils Percent Auto48.6 43.0-75.0 %Lymphocytes Percent Auto35.920.5-60.0 %Monocytes Percent Auto11.51.7- 12.0 %Eosinophils Percent Auto3.30.9-7.0 %Basophils Percent Auto0.50.2-2.0 % Immature Granulocytes Pct Auto0.20.0-0.5 %Neutrophils Absolute Auto4.21.4-6.5 10 3/uLLymphocytes Absolute Auto3.11.2-3.8 10 3/uLMonocytes Absolute Auto1.00.3-0.8 10 3/uLEosinophils Absolute Auto0.30.0-0.7 10 3/uLBasophils Absolute Auto0.00.0- 0.1 10 3/uLImmature Granulocytes Abs Auto0.020.00-0.03 10 3/uLPerforming Lab:see noteML - [facility] LBLIPASE Reviewed date:02/19/2025 06:16:49 PM Interpretation: Performing Lab: Notes/Report: [facility] ,Zlegxk79.016.0-77.0 U/LPerforming Lab:see noteML - [facility] LBPROF 14(COMP METB) Reviewed date:02/19/2025 06:16:49 PM Interpretation: Performing Lab: Notes/Report: [facility] ,Fhmjui930504-587 mmol/LPotassium3.93.5-5.1 mmol/JKmivmxlp10949-802 mmol/LCarbon Mfocqbc14.621.0-32.0 mmol/LAnion Gap11.4Liqfcpf7069-723 mg/dLBlood Urea Nitrogen 20.07.0-18.0 mg/dLCreatinine0.660.55-1.02 mg/dLEstimated GFR ( Shireen>60 >=60 mL/min/1.73m 2Estimated GFR (Non- Isela>60>=60 mL/min/1.73m 2BUN Creatinine Ratio30.2Jfkztxk1.18.5-10.1 mg/dLBilirubin Total0.30.2-1.0 mg/dL Aspartate Amino Dfclafhwcbx5360-40 U/LAlanine Lsrakfafzjqdswav9945-31 U/L Alkaline Aospoiysdfx5032-102 U/LTotal Protein7.36.4-8.2 g/dLAlbumin Level3.73.4- 5.0 g/dLGlobulin3.6Albumin Globulin Ratio1.0Performing Lab:see noteML - [facility] hepatobiliary wo pharm Reviewed date:03/01/2024 06:55:03 PM Interpretation: Performing Lab: Notes/Report: Source Facility: [place] [address] Nuclear Medicine Report Signed Patient: SHANIQUE CAMARGO MR#: [id number] : 1955 Acct:[id number] Age/Sex: 68 / F ADM Date: 03/01/24 Loc: [place] Attending Dr: Katelyn Yoon M.D. Ordering Physician: Katelyn Yoon M.D. Date of Service: 03/01/24 Procedure(s): JESUS hepatobiliary wo pharm Accession Number(s): [id number] cc: Katelyn Yoon M.D. [place] [address] Patient Name: SHANIQUE CAMARGO MRN: [id number] date: 1955 Sex: F Assigned Patient Location: [place] Current Patient Location: [place] Accession/Order Number: [id number] Exam Date: 03/01/2024 06:40 Report Date: 03/01/2024 09:55 At the request of: KATELYN YOON Procedure: NM hepatobiliary wo pharm EXAMINATION: NM [...] M.D. Signed By: 03/01/2458 DD/ 4 TD/TT: Tank Builder:XR tibia fibula LT 2V Reviewed date:02/07/2025 04:56:10 PM Interpretation: Performing Lab: Notes/Report: Source Facility: [place] [address] XRay Report Signed Patient: SHANIQUE CAMARGO MR#: [id number] : 1955 Acct:[id number] Age/Sex: 69 / F ADM Date: 02/07/25 Loc: RAD Attending Dr: Katelyn Yoon M.D. Ordering Physician: Katelyn Yoon M.D. Date of Service: 02/07/25 Procedure(s): XR tibia fibula LT 2V Accession Number(s): [id number] cc: Katelyn Yoon M.D. [place] [address] Patient Name: SHANIQUE CAMARGO MRN: [id number] date: 1955 Sex: F Assigned Patient Location: [facility] Current Patient Location: [facility] Accession/Order Number: [id number] Exam Date: 02/07/2025 09:55 Report Date: 02/07/2025 [...] Mckoy M.D. 02/07/2025 10:24 AM Dictation Location: [place] [address] Electronically authenticated by: [id number] Y Date: 02/07/2025 10:24 Dictated By: Xiomara Mckoy M.D. Signed By: 02/07/25 1027 DD/ 1024 TD/TT: Tank Builder:ROMULO RANDOM W or MICROSCOPIC Reviewed date:02/19/2025 06:16:49 PM Interpretation: Performing Lab: Notes/Report: [facility] ,Color UrineLT. YELLOWYELLOWClarity UrineCLEARCLEARSpecific [place] Urine1.015 1.005-1.025pH Urine5.55.0-9.0Protein UrineNEGATIVENEG/TRACE mg/dLGlucose Urine UANEGATIVENEGATIVE mg/dLBilirubin UrineNEGATIVENEGATIVEKetones UrineNEGATIVE NEGATIVE mg/dLBlood UrineNEGATIVENEGATIVENitrite UrineNEGATIVENEGATIVE Urobilinogen Urine0.20.2-1.0 EU/dLLeukocyte Esterase UrineTRACENEGATIVEWBC Urine 0-2NONE SEEN #/HPFRBC Urine0-20-2 #/HPFBacteria UrineTRACENONE SEEN #/HPFMucus UrineNONE SEENNONE SEENSquamous Epithelial Cell UrineRARENONE/RARE #/LPF Transitional Epi Cells UrineRARENONE SEEN #/LPFCrystals Seen?None SeenNone Seen #/HPFCast Seen?NONE SEENNONE SEEN #/LPFUrine Culture IndicatedNOPerforming Lab: see noteML - [facility] LBUS abdomen complete Reviewed date:02/20/2025 02:10:11 PM Interpretation: Performing Lab: Notes/Report: Source Facility: [place] [address] Ultrasound Report Signed Patient: SHANIQUE CAMARGO MR#: [id number] : 1955 Acct:[id number] Age/Sex: 69 / F ADM Date: 02/20/25 Loc: [place] Attending Dr: Katelyn Yoon M.D. Ordering Physician: Katelyn Yoon M.D. Date of Service: 02/20/25 Procedure(s): US abdomen complete Accession Number(s): [id number] cc: Katelyn Yoon M.D. [place] [address] Patient Name: SHANIQUE CAMARGO MRN: [id number] date: 1955 Sex: F Assigned Patient Location: [place] Current Patient Location: [place] Accession/Order Number: [id number] Exam Date: 02/20/2025 08:00 Report Date: 02/20/2025 11:10 At the request of: KATELYN YOON MD Procedure: US abdomen complete COMPLETE ABDOMINAL ULTRASOUND CLINICAL HISTORY: Low abdominal pain after eating. Prior cholecystectomy. COMPARISON: 02/11/2024 The gallbladder is surgically absent. No intra- or extrahepatic biliary dilatation is evident. The common duct measures 2 - 3 mm. The liver is normal in echogenicity. No intrahepatic masses are seen. There is appropriate hepatopetal flow within the main portal vein. The pancreas shows no significant sonographic abnormality. The spleen is normal in size measuring 9.4 cm in craniocaudal dimension. Echogenic foci within the spleen suggest granulomas. The right kidney measures 9.1 cm and the left 10.2 cm in craniocaudal dimension. No shadowing calculi, renal mass lesions or hydronephrosis are seen. There is no aortic aneurysm. The IVC is patent. No ascites is noted. US/US abdomen complete IMPRESSION: SPLENIC GRANULOMAS. OTHERWISE NEGATIVE ULTRASOUND OF THE ABDOMEN. Impression dictated by: Xiomara Mckoy M.D. 02/20/2025 11:10 AM Dictation Location: [place] [address] Electronically authenticated by: [id number] Y Date: 02/20/2025 11:10 Dictated By: Xiomara Mckoy M.D. Signed By: 02/20/25 1113 DD/ 1110 TD/TT: Tank Builder:Occult Blood* Reviewed date:08/30/2024 06:21:32 PM Interpretation: Performing Lab: Notes/Report: [facility] ,Occult BloodNegativePerforming Lab:see noteML - [facility] LBTSH Reviewed date:08/29/2024 06:58:57 PM Interpretation: Performing Lab: Notes/Report: [facility] ,Thyroid Stimulating Hormone1.1170.358-3.740 uIU/mLPerforming Lab:see noteML - [facility] LBT4 Reviewed date:08/29/2024 06:58:57 PM Interpretation: Performing Lab: Notes/Report: [facility] ,T4 Thyroxine6.504.80-13.90 ug/dLPerforming Lab:see noteML - [facility] LBPROF 14(COMP METB) Reviewed date:08/29/2024 06:58:57 PM Interpretation: Performing Lab: Notes/Report: [facility] ,Yoxoqc494313-372 mmol/LPotassium4.63.5-5.1 mmol/SRwomoyen66330-728 mmol/LCarbon Sdnwdqu71.621.0-32.0 mmol/LAnion Gap11.0Yiulcvh0119-161 mg/dLBlood Urea Nitrogen 20.07.0-18.0 mg/dLCreatinine0.620.55-1.02 mg/dLEstimated GFR ( Shireen>60 >=60 mL/min/1.73m 2Estimated GFR (Non- Isela>60>=60 mL/min/1.73m 2BUN Creatinine Ratio32.3Deccjrn0.88.5-10.1 mg/dLBilirubin Total0.30.2-1.0 mg/dL Aspartate Amino Xrkvqlyvshu5676-76 U/LAlanine Kesxsudvyexvjyya7460-81 U/L Alkaline Nkvxmplwjtk1748-730 U/LTotal Protein7.36.4-8.2 g/dLAlbumin Level3.73.4- 5.0 g/dLGlobulin3.6Albumin Globulin Ratio1.0Performing Lab:see noteML - [facility] LBLIPID PROFILE Reviewed date:08/29/2024 06:58:57 PM Interpretation: Performing Lab: Notes/Report: [facility] ,Oixneerrvcney07<=150 mg/bAQhlpzilknqk548<=200 mg/dLHDL Nveroezmkau8389-40 mg/dL > or =60 mg/dl - LOW CARDIOVASCULAR RISK <40 mg/dl - HIGH CARDIOVASCULAR RISK LDL Cholesterol Oybyvvfljg105.0 <100 mg/dl OPTIMAL 100-129 mg/dl NEAR OR ABOVE OPTIMAL 130-159 mg/dl BORDERLINE HIGH 160-189 mg/dl HIGH >190 mg/dl VERY HIGH VLDL CHOLESTEROL8.4Chol HDL Ratio2.3 3.3 - 4.4 LOW RISK 4.4 - 7.1 AVERAGE RISK 7.1 - 11.0 MODERATE RISK >11.0 HIGH RISK Performing Lab:see noteML - [facility] LBFREE T3 Reviewed date:08/29/2024 06:58:57 PM Interpretation: Performing Lab: Notes/Report: [facility] ,Free T32.852.18-3.98 pg/mLPerforming Lab:see noteML - [facility] LB CBC AUTO DIFF Reviewed date:08/29/2024 06:58:57 PM Interpretation: Performing Lab: Notes/Report: [facility] ,White Blood Count5.84.0-11.0 10 3/uLRed Blood Count4.874.20-5.40 10 6/uL Ropvssnklp49.512.0-16.0 g/aYKwbaynumjw40.036.0-48.0 %Mean Corpuscular Xoilkh89.4 81.0-99.0 fLMean Corpuscular Ioldlznyjk37.826.7-34.0 pgMean Corpuscular HGB Conc 32.229.9-35.2 g/dLRed Cell Distribution Width12.811.0-15.0 %Platelet Okdmu562 150-450 10 3/uLMean Platelet Kldulc19.99.5-13.5 fLNeutrophils Percent Auto46.7 43.0-75.0 %Lymphocytes Percent Auto37.520.5-60.0 %Monocytes Percent Auto10.21.7- 12.0 %Eosinophils Percent Auto4.70.9-7.0 %Basophils Percent Auto0.70.2-2.0 % Immature Granulocytes Pct Auto0.20.0-0.5 %Neutrophils Absolute Auto2.71.4-6.5 10 3/uLLymphocytes Absolute Auto2.21.2-3.8 10 3/uLMonocytes Absolute Auto0.60.3-0.8 10 3/uLEosinophils Absolute Auto0.30.0-0.7 10 3/uLBasophils Absolute Auto0.00.0- 0.1 10 3/uLImmature Granulocytes Abs Auto0.010.00-0.03 10 3/uLPerforming Lab:see noteML - [facility] LBXR KNEE RT 3V Reviewed date:08/10/2024 06:48:32 PM Interpretation: Performing Lab: Notes/Report: Source Facility: [place] [address] XRay Report Signed Patient: SHANIQUE CAMARGO MR#: [id number] : 1955 Acct:[id number] Age/Sex: 68 / F ADM Date: 08/10/24 Loc: ER Attending Dr: Ordering Physician: Nikki Paulino Date of Service: 08/10/24 Procedure(s): XR knee RT 3V Accession Number(s): [id number] cc: Katelyn Yoon M.D.; Nikki Paulino [place] [address] Patient Name: SHANIQUE CAMARGO MRN: [id number] date: 1955 Sex: F Assigned Patient Location: ER Current Patient Location: ER Accession/Order Number: [id number] Exam Date: 08/10/2024 08:06 Report Date: 08/10/2024 [...] Mckoy M.D. 08/10/2024 8:08 AM Dictation Location: [place] [address] Electronically authenticated by: [id number] Y Date: 08/10/2024 08:08 Dictated By: Xiomara Mckoy M.D. Signed By: 08/10/24810 DD/ 7 TD/TT: Tank Builder:XR shoulder RT min 2V Reviewed date:07/26/2024 09:09:48 PM Interpretation: Performing Lab: Notes/Report: Source Facility: [place] [address] XRay Report Signed Patient: SHANIQUE CAMARGO MR#: [id number] : 1955 Acct:[id number] Age/Sex: 68 / F ADM Date: 07/25/24 Loc: [facility] Attending Dr: Katelyn Yoon M.D. Ordering Physician: Katelyn Yoon M.D. Date of Service: 07/25/24 Procedure(s): XR shoulder RT min 2V Accession Number(s): [id number] cc: Katelyn Yoon M.D. [place] [address] Patient Name: SHANIQUE CAMARGO MRN: [id number] date: 1955 Sex: F Assigned Patient Location: [facility] Current Patient Location: [facility] Accession/Order Number: [id number] Exam Date: 07/25/2024 17:31 Report Date: 07/25/2024 [...] Dhillon M.D. 07/25/2024 5:31 PM Dictation Location: [place] [address] Electronically authenticated by: [id number] Y Date: 07/25/2024 17:31 Dictated By: Terrence Dhillon D.O. Signed By: 07/25/241733 DD/ 30 TD/TT: Tank Builder:PROF Pabon(COMP METB) Reviewed date:03/06/2024 01:15:20 PM Interpretation: Performing Lab: Notes/Report: [facility] ,Duhnvi823135-081 mmol/LPotassium4.23.5-5.1 mmol/RKfidixsu52864-293 mmol/LCarbon Jhlqych99.321.0-32.0 mmol/LAnion Gap9.3Vtyliwe1854-098 mg/dLBlood Urea Nitrogen 15.07.0-18.0 mg/dLCreatinine0.680.55-1.02 mg/dLEstimated GFR ( Shireen>60 >=60 mL/min/1.73m 2Estimated GFR (Non- Isela>60>=60 mL/min/1.73m 2BUN Creatinine Ratio22.4Rovhcek5.38.5-10.1 mg/dLBilirubin Total0.20.2-1.0 mg/dL Aspartate Amino Onscadnpdkn6769-22 U/LAlanine Vfpkwlefjbrdspwu9786-94 U/L Alkaline Lgqkoyldiql2775-282 U/LTotal Protein7.06.4-8.2 g/dLAlbumin Level3.73.4- 5.0 g/dLGlobulin3.3Albumin Globulin Ratio1.1Performing Lab:see noteML - [facility] LBCBC AUTO DIFF Reviewed date:03/06/2024 01:15:20 PM Interpretation: Performing Lab: Notes/Report: [facility] ,White Blood Count8.54.0-11.0 10 3/uLRed Blood Count4.554.20-5.40 10 6/uL Lpvzejizqq93.712.0-16.0 g/dPGfvdyzcjmp47.536.0-48.0 %Mean Corpuscular Babmjz30.4 81.0-99.0 fLMean Corpuscular Ketaezxvck81.126.7-34.0 pgMean Corpuscular HGB Conc 32.229.9-35.2 g/dLRed Cell Distribution Width12.311.0-15.0 %Platelet Oijzc202 150-450 10 3/uLMean Platelet Lxdkyp78.79.5-13.5 fLNeutrophils Percent Auto61.7 43.0-75.0 %Lymphocytes Percent Auto27.620.5-60.0 %Monocytes Percent Auto9.11.7- 12.0 %Eosinophils Percent Auto0.90.9-7.0 %Basophils Percent Auto0.50.2-2.0 % Immature Granulocytes Pct Auto0.20.0-0.5 %Neutrophils Absolute Auto5.21.4-6.5 10 3/uLLymphocytes Absolute Auto2.31.2-3.8 10 3/uLMonocytes Absolute Auto0.80.3-0.8 10 3/uLEosinophils Absolute Auto0.10.0-0.7 10 3/uLBasophils Absolute Auto0.00.0- 0.1 10 3/uLImmature Granulocytes Abs Auto0.020.00-0.03 10 3/uLPerforming Lab:see noteML - [facility] LBGLYCOHEMOGLOBIN A1C Reviewed date:08/29/2024 06:58:57 PM Interpretation: Performing Lab: Notes/Report: [facility] ,Glycohemoglobin A1C5.54.5-6.2 % ADA RECOMMENDED LIMIT 4.0 - 6.0 ADA THERAPEUTIC TARGET < 7.0 ACTION SUGGESTED > 7.0 Estimated Average Tbpkoyg015Stqpulkfcc Lab:see noteML - [facility] LB UA DIP NONAUTO WO MICRO (53487) - IN OFFICE Reviewed date:07/26/2024 09:09:48 PM Interpretation: Performing Lab: Notes/Report: COLORyellowCLARITYcloudyGLUCOSEnBILIRUBINnKETONEsmallSPECIFIC GRAVITY1.015BLOOD +++VE6JUYUDVU29+UROBILINOGENnNITRITE+LEUKOCYTE ESTERASE++MR angio abdomen wo con Reviewed date:04/26/2024 09:04:53 PM Interpretation: Performing Lab: Notes/Report: Source Facility: [place] [address] Magnetic Resonance Report Signed Patient: SHANIQUE CAMARGO MR#: [id number] : 1955 Acct:[id number] Age/Sex: 68 / F ADM Date: 04/26/24 Loc: MRI Attending Dr: Katelyn Yoon M.D. Ordering Physician: Katelyn Yoon M.D. Date of Service: 04/26/24 Procedure(s): MR angio abdomen wo con Accession Number(s): [id number] cc: Katelyn Yoon M.D. [place] [address] Patient Name: SHANIQUE CAMARGO MRN: [facility]:[id number] date: 1955 Sex: F Assigned Patient Location: MRI Current Patient Location: MRI Accession/Order Number: [id number] Exam Date: 04/26/2024 15:43 Report Date: 04/26/2024 15:50 At the request of: KATELYN YOON MD Procedure: MR angio abdomen wo con MRA of the abdomen without IV contrast. Reason for exam: Chronic abdominal pain COMPARISON: CT abdomen and pelvis 01/07/2024. TECHNIQUE: Multisequence, multiplanar imaging of the abdomen was obtained. Additional xyqs-ns-uadhqj imaging of the aorta and its major [...] Glasgow Jr., D.O.04/26/2024 3:50 PM Dictation Location: [place] [address] Electronically authenticated by: [id number] Y Date: 04/26/2024 15:50 Dictated By: Yordy Glasgow M.D. Signed By: 04/26/24 1552 DD/ 1550 TD/TT: Tank Builder:LIPASE Reviewed date:03/06/2024 01:15:20 PM Interpretation: Performing Lab: Notes/Report: [facility] ,Asyljp16.016.0-77.0 U/LPerforming Lab:see noteML - [facility] LB AMYLASE Reviewed date:03/06/2024 01:15:20 PM Interpretation: Performing Lab: Notes/Report: [facility] ,Xtealot9061-271 U/LPerforming Lab:see noteML - [facility] LB Reason For Referral Diagnosis 1 Intestinal angina (K 55.1) Referral Organization [facility] Referring Provider First Name Stanton Referring Provider Last Name [facility] Referring Provider [facility] Referred Provider Specialty Gastroentero logy Referral Priority Routine Diagnosis 1 Bile duct leak (K83. 8) Referral Organization [facility] Referring Provider First Name Stanton Referring Provider Last Name [facility] Referring Provider [facility] Referred Provider Fawad Mcintosh Referred Provider Specialty Gastroentero logy Referral Priority Routine Medications Medication SIG (Take, Route, Frequency, Duration) Notes Start Date End Date Status Macrobid 100 MG 1 capsule with food Orally twice a day; Duration: 10 days 5ActiveVoquezna 10 MG 1 tablet Orally Once a [...] alcohol in the p ast year? No Gckrip6WrjvluylkughkuBrtlvdocNODPW-I (Standard) Question Answer Notes Did you have a drink containing alcohol in the p ast year? No Nzdnzb8EntcqclbclrenbZikmclst Problems Problem Type SNOMED Code ICD Code Onset Dates Problem Status W/U Status Risk Notes Problem Age-related osteoporosis (349095 002) Age-related osteoporosis without current pathological fracture (M81.0) ActiveconfirmedProblemAbdominal pain (16855587)Abdominal pain (R10.9)Active confirmedProblemGastroesophageal reflux disease (801348010)GERD (gastroesophageal reflux disease) (K21.9)ActiveconfirmedProblemEpigastric pain (82088974)Epigastric abdominal pain (R10.13)ActiveconfirmedProblemOsteoarthritis of knee (479701528)Knee osteoarthritis (M17.9)ActiveconfirmedProblemDiverticular disease of colon (590348521)Diverticulosis (K57.90)ActiveconfirmedProblemAcute sinusitis (67254962)Acute sinusitis (J01.90)ActiveconfirmedProblemAcute bronchitis (15380838)Acute bronchitis (J20.9)ActiveconfirmedProblemPain of left knee region (finding) (923706999774167)Knee pain, left (M25.562)Activeconfirmed ProblemSciatica (51254653)Sciatic leg pain (M54.30)ActiveconfirmedProblemTubular adenoma (998680064)Tubular adenoma (D36.9)ActiveconfirmedProblemGastroenteritis (60575569)Gastroenteritis (K52.9)ActiveconfirmedProblemUpper abdominal pain (43506924)Upper abdominal pain (R10.10)ActiveconfirmedProblemIntestinal angina (652179448)Intestinal angina (K55.1)ActiveconfirmedProblemBile duct leakage (disorder) (959822575)Bile duct leak (K83.8)ActiveconfirmedProblemOsteoarthritis of knee (116340133)Knee osteoarthritis (M17.10)Activeconfirmed Vital Signs Temperature 98.2 degrees Fahrenheit 06/02/2024 Blood pressure algkqenie06 mm Hg02/19/20255488Miaqhe05 in02/19/2025lood pressure jpleyrah215 mm Hg02/19/20257820Edhuiq531 lbs1MI29.09 kg/m202/19/2025 Procedures Procedure Date Ordered Date Performed Result Body Sit e Colonoscopy 03/29/2024 Normal Encounters Encounter Location Date Provider Diagnosis [facility] [address] [address] 12/07/2024 Stanton y [facility] [place] [address] 02/07/2025[facility] [address]/[facility] [address]/30/2025Doug HoyScreening for tuberculosis Z11.1 [facility] [address] 04/20/2024Doug HoyIntestinal angina K55.1 ; Upper abdominal pain R10.10 and Bile duct [facility]83.[facility] [facility] [address] [address]/06/2024[facility] [address]/[facility] [address]/05/2024[facility] [place] [address]/09/2024[facility] [facility] [address] [facility] [address] [facility] [address]/09/2024[facility] [facility] [address] [facility] [address]/09/2024[facility] [facility] [place] [address]/11/2024[facility] [place] [facility] [place] [address]/[facility] [facility] [place] [address]/ [facility] [facility] [place] [address]/[facility] [facility] [place] [address]/07/2024[facility] [facility] [place] [address]/Doug HoyGERD (gastroesophageal reflux disease) K21.9 and Intestinal angina K55.1B[facility] [address] [facility] [place] [address]/Doug HoyKnee osteoarthritis M17.9B[facility] [facility] [address]/Doug HoyGastroenteritis K52.9B[facility] [facility] [address]/03/2024Doug Hoy Encounter for Medicare annual wellness exam Z00.00[facility] [facility] [place] [address]/Doug HoyUTI (urinary tract infection) N39.0[facility] [facility] [place] [address]/01/2025Doug HoyAcute non-recurrent sinusitis, unspecified location J01.90 and Nasal congestion R09.81[facility] [facility] [place] [address]/12/2024Doug HoyBurning with urination R30.0 ; UTI (urinary tract infection), uncomplicated N39.0 and Dysuria R30.0[facility] [place] [facility] [place] [address]/03/2024Doug HoyShoulder impingement M25.819 and Impingement of right shoulder M25.811B[facility] [place] [facility] [place] [address]/Doug HoyKnee pain, left M25.562 and Gastritis K29.70[facility] [place] [facility] [place] [address]/07/2024Doug HoyAbdominal pain R10.9B[facility] [address] [place] [facility] [place] [address]/Doug HoyEpigastric abdominal pain R10.13 Assessments Encounter Date Diagnosis (ICD Code) Assessment Notes Treatment Notes Treatment Clinical Notes Section Notes 04/20/2024 GERD (gastroesophageal reflux di sease) (ICD-10 - K21.9) 04/20/2024Intestinal angina (ICD-10 - K55.1)5Burning with urination (ICD-10 - R30.0)02/20/2025Screening for tuberculosis (ICD-10 - Z11.1)02/28/2024 Abdominal pain (ICD-10 - R10.9)03/06/2024Epigastric abdominal pain (ICD-10 - R10.13)5Acute non-recurrent sinusitis, unspecified location (ICD-10 - J01.90)Rest and drink more liquids, especially water. You may use a humidifier or vaporizer to help keep the drainage moist. Ndln-yxv-bplfslu Nasal Saline may help the stuffy and runny nose. Use Ibuprofen and or Tylenol as needed for fever, chills, body aches or pain. Children 5 years old should not be given tswi-vft-meaebhx cough and cold medications such as guaifenesin and dextromethorphan. If you're over age 5, you may try tefv-ovl-qgbbxpx cold medications such as guaifenesin and dextromethorphan, [...] 3-5 days06/14/2024UTI (urinary tract infection) (ICD-10 - N39.0)07/24/2024Shoulder impingement (ICD-10 - M25.819)07/24/2024Impingement of right shoulder [...] was due for yearly labs which were orde red08/18/2024Knee osteoarthritis (ICD-10 - M17.9)02/07/2025Knee pain, left (ICD- 10 - M25.562)02/07/2025Gastritis (ICD-10 - K29.70)trial double dose - if not heloing caling back02/19/2025Gastroenteritis (ICD-10 - K52.9)Get plenty of rest. Stay hydrated by sucking on ice chips or taking small sips of water. You can als o try drinking clear soda, clear broths or noncaffeinated sports drinks. Stop eating solid foods for a few hours to let your stomach settle. East back into eating by eating bland, jvog-he-mfkyvm foods like crackers, toast, gelatin, bananas, rice and chicken. Try to avoid foods/substances including dairy products, caffeine, alcohol, nicotine and fatty or highly seasoned foods. Medications such as ibuprofen or tylenol can make your stomach more upset, so use sparingly if at all. Also avoid lwwd-koj-yqjoafc anti-diarrheal medications because it can make it harder for your body to eliminate the virus.04/20/2024 Intestinal angina (ICD-10 - K55.1)04/20/2024Upper abdominal pain [...] until they are finished. You can use bsgu-cea-espwbeg acetaminophen or ibuprofen if needed for pain. [...] CBC W/AUTO DIFF 08/23/2024 CULTURE URINE 02/19/2025 QUANTIFERON TB GOLD PLUS 02/20/2025 VIT B12 AND FOLATE 06/23/2023 CT ABD and PELV W CON 09/21/2023 US ABD 11/26/2023 US ABD 02/02/2024 US ABD 02/19/2025 XR CHEST 2 V 02/20/2025 XR DEXA BONE DENSITY 06/02/2023 XR SHOULDER [...] Insured Coverage Start Date Coverage End Date [facility] [employer] [address] [address] [place] [address] [phone] [id number] Shanique Camargo Self - patient is the insured 4 Medical (General) History Medical History History ICD Code Arthritis M19.90 Inguinal hernia K40.90 Diverticular disease K57.90 Surgical History Surgery Date(Month/Year) Colonoscopy, polyp x3- Dr Diggs 5 gallbladder removed 12/13/23 Hernia Repair Left Knee Vclprbg72/20/16Right Knee Surgery11/12/15Carpal Tqfudw4320Ytmyhltxfudda 3401Keqehdonaifq0991MSJ78/19/46LSP72
--- OUTSIDE RECORDS SUMMARY | 2025-02-21 14:44 | XMS_ITS | Clinical Summary ---
Author Organization [facility] Address [address] [place] [address] Care Team Providers Care Travel Manager Name Role Phone Merrill Kaufman MD Primary Care Provider [phone] Allergies Active AllergyReactionsCriticalityNoted CmdpWkgpjumaGfmllskpimkrUzwez09/14/2024 NsaidsGI jvptqmuvsjl61/14/2024SucralfateGI fftrxodjqfr71/14/2024 Medications MedicationSigDispense QuantityRefillsLast FilledStart DateEnd DateStatus hyoscyamine (Anaspaz) 0.[address] 0.125 mg under the tongue every 4 (four) hours if spdtkv9411/29/2023ctive pantoprazole (ProtoNix) 40 MG EC tablet Take 40 mg by mouth DailyActive ondansetron ODT (Zofran-ODT) 4 MG disintegrating tablet Take 4 mg by mouth every 8 (eight) hours if needed for nauseaActive Social History Tobacco UseTypesPacks/DayYears UsedDateSmoking Tobacco: Never Assessed CommentsUnknownSex and Gender InformationValueDate RecordedSex Assigned at Not on fileLegal XnxNdfbaz19/15/2023 6:57 PM EDTGender IdentityNot on fileSexual OrientationNot on file Last Filed Vital Signs Vital SignReadingTime TakenCommentsBlood Jowwcetm470/7411 12:51 PM EST Rsxmu085412/27/2023 12:51 PM ESTTemperature--Respiratory Zqzz116102/25/2023 12:51 PM ESTOxygen Ftyunoahyk55%12/27/2023 12:51 PM ESTInhaled Oxygen Concentration-- Mtcefv50.5 kg (151 lb)12/27/2023 12:51 PM TCMFqpeay663.5 cm (5' 2 )12/27/2023 12:51 PM ESTBody Mass Index27.6212/27/2023 12:51 PM EST Plan of Treatment Not on file Insurance Care Teams Team MemberRelationshipSpecialtyStart DateEnd Date Merrill Kaufman MD PCP - GeneralFamily Onfuermq55/14/24
--- OUTSIDE RECORDS SUMMARY | 2025-02-21 14:44 | XMS_ITS | Clinical Summary ---
Author Organization [facility] Address [address] [place] [address] Care Team Providers Care Shingle Inspector Name Role Phone Merrill Kaufman MD Primary Care Provider [phone] Allergies Active AllergyReactionsCriticalityNoted DateCommentsDicyclomineGI intolerance 05/01/2024 STOMACH PAINS FamotidineGI mjepgwchpuv53/10/2025 STOMACH PAINS HyoscyamineGI rliujyeqsvl24/10/2025 STOMACH ACHES VarkuegfbgpaSsdte80/14/2024 Severe muscle aches Nsaids (Non-Steroidal Anti-Inflammatory Drug)GI tmmrzenpsmn18/14/2024 Metoclopramide CwrLzwta05/10/2025 INSOMNIA, CHEST DISCOMFORT SucralfateGI ytegmeaolcw26/14/2024 Medications MedicationSigDispense QuantityRefillsLast FilledStart DateEnd DateStatus hyoscyamine [...] InformationValueDate RecordedSex Assigned at BirthNot on fileLegal DniOirzjk52/20/2025 7:50 AM ESTGender Identity Not on fileSexual OrientationNot on file Last Filed Vital Signs Vital SignReadingTime TakenCommentsBlood Hbjzspfv845/72005/10/2024 9:27 AM EDT Dldwy011405/10/2024 9:27 AM XMAVcclhiatnxw40.1 ??C (97 ??F)05/10/2024 9:27 AM EDT Respiratory Opbx128205/10/2024 9:27 AM EDTOxygen Opqqatniyg639%05/10/2024 9:27 AM EDTInhaled Oxygen Concentration--Lzlqwv07.6 kg (151 lb 3.8 oz)05/10/2024 7:21 AM UFSBizylf644.9 cm (5' 1 )05/10/2024 7:21 AM EDTBody Mass Index28.58005/10/2024 7:21 AM EDT Plan of Treatment Health MaintenanceDue DateLast DoneCommentsCT Koypmsnjlxaf85/30/1954Colonoscopy 4Colorectal Cancer Ybkzuvobf71/30/1954FIT-DNA1953FIT1953 FOBT1953Medicare Annual Wellness (AWV)12/21/19538538Jjtvmnnlinshd63/30/1954 Depression Oaxqgiawp23/30/1966Adult Lvmiojq3512/22/1975Pneumococcal Vaccine: 50+ Years (1 of 1 - PCV)12/22/2003Zoster Vaccines (1 of 2)12/22/2003Mammogram Fall Risk Dlkqmfdxk27/30/2019COVID-19 Vaccine (3 - season), 09/24/2020Influenza Vaccine (#1)2024 [...] MemberRelationshipSpecialtyStart DateEnd Merrill Kaufman MD [address] [facility] [address] [address] [facility] - General05/10/24
--- NOTE | 2025-02-21 15:10 | XR_ITS ---
The [address] [address] Patient Name: MARY JO ROBLES MRN: [id number] date: 1955 Sex: F Assigned Patient Location: LAB Current Patient Location: LAB Accession/Order Number: [id number] Exam Date: 02/21/2025 15:05 Report Date: 02/21/2025 15:25 At the request of: KATELYN YOON MD Procedure: XR chest 2V PA AND LATERAL CHEST: CLINICAL HISTORY: Screening For Tuberculosis COMPARISON: 01/28/2023 FINDINGS: Unremarkable cardiac mediastinal silhouette. No bulky mediastinal or hilar adenopathy. No airspace opacity effusion or pneumothorax. XR/XR chest 2V IMPRESSION: NO ACUTE CARDIOPULMONARY ABNORMALITY. Impression dictated by: Memo Hou M.D. 02/21/2025 3:25 PM Dictation Location: [place] [address] Electronically authenticated by: [id number] Y Date: 02/21/2025 15:25
== END 2025-02-21 14:37 | disposition home or self-care (01) ==
LOC: LAB 14:39
PROVIDERS: PCP Family Medicine; Visit Provider Family Medicine
DX: Z11.1 Encounter for screening for respiratory tuberculosis (principal)
CPT/HCPCS: 36415; 71046; 86480